=== PATIENT | female | born 1940 | race Caucasian/White ===

== ENCOUNTER 2023-12-16 09:50 | Emergency (ER) | payer MEDICARE, BC, SELFPAY ==
[2023-12-16 10:06] VITALS: BP 153/92
[2023-12-16 11:01] VITALS: BMI 20.7
[2023-12-16 11:03] VITALS: BP 150/77
--- NOTE | 2023-12-16 12:06 | ED.GENMED ---
History of Present Illness
General
Chief Complaint: Back Pain
Time Seen by Provider: 12/16/23 10:28
Travel History
Have you had any contact with someone who has COVID-19?: No
Do you have any symptoms of coronavirus? Fever > 100 degrees, chills, cough, shortness of breath, sore throat, loss of taste or smell, muscle aches, or headache?: No
History of Present Illness
History of Present Illness:
83-year-old female presents to the emergency department for evaluation of right hip pain, contrary to the nursing triage note it is not located in the back. She reports right lateral hip pain. 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
hip replacement. Pain is minimal at rest but worsens when she attempts to ambulate. She has been using a cane with some difficulty. She has a history of A-fib and does take Eliquis thus has only been taking muscle relaxants prescribed by her
primary medical doctor.
Past History
Past History
ED Past Medical History: Arrthythmia (afib), HTN and Hypothyroidism; Negative CVA
ED Past Surgical History: None
Social History
Tobacco: Former smoker
Alcohol: Occasional
Drug: None
Personal:
Living: with family
Employment: Retired
Family History
Family History: Other (nonContributory)
Review of Systems
Review of Systems
Allergies reviewed?: Yes
All Other Systems: ROS reviewed and negative except as documented in HPI and ROS
Phy Exam
Physical Exam
Physical Exam:
GEN: Well appearing, NAD, WDWN
HEENT: Oral mucosa moist, no scleral icterus
Cardiac: Regular rate
Lung: No respiratory distress, no tachypnea
MSK: No gross deformity or injuries. Focal tenderness to the right greater trochanteric bursa. Right hip range of motion is free unrestricted with no pain, no crepitus, no inguinal region tenderness.
Skin: Good color, no pallor or jaundice, no rashes
Neuro: AO x3, moves all extremities freely
Psych: Calm, cooperative
Course
Orders/Labs/Results
Orders:
Orders
12/16/23 10:39
Triamcinolone Acetonide [Kenalog-10] 10 mg INTRAARTIC NOW STA
CR Hip - RT w/wo Pel 2-3 Vw* Urgent
Comment:
Reason For Exam: R hip pain
Include a pelvis x-ray?: No
Vital Signs
Initial and Last Documented VS:
Initial Vital Signs
Temp Pulse Resp BP Pulse Ox
98.1 F 79 16 153/92 98
12/16/23 10:06 12/16/23 10:06 12/16/23 10:06 12/16/23 10:06 12/16/23 10:06
Last Documented Vital Signs
Temp Pulse Resp BP Pulse Ox
98.1 F 75 16 150/77 97
12/16/23 10:06 12/16/23 11:03 12/16/23 11:03 12/16/23 11:03 12/16/23 11:03
MDM/Problems Addressed
MDM/Problems Addressed:
Hip x-rays show well aligned hardware with no acute osseous abnormalities. Patient's clinical picture is consistent with greater trochanteric bursitis. Given that she cannot take NSAIDs and is on chronic steroids we opted for an intrabursal
steroid injection in the hopes that this would improve symptoms. 10 mg of triamcinolone was injected along with 2 cc of 1% lidocaine to the greater trochanteric bursa, patient tolerated this well. Recommend outpatient orthopedic follow-up
*Critical Care Note
Total Time (30-74mins, 75-104mins- exclusive of procedures): Not Applicable
ED Attending Note
-
Portions of this chart may have been created with voice recognition software.� Occasional wrong word or��sound alike� substitutions may have occurred due to the inherent limitations of voice recognition software.
Discharge Plan
Departure
Patient Disposition: Home (Routine Discharge)
Date of Disposition: 12/16/23
Time of Disposition: 12:20
Patient with high blood pressure during this ER visit?: No
Discharge Problem:
Greater trochanteric bursitis of right hip
Instructions: Hip Bursitis (DC)
Prescriptions:
No Action
clindamycin HCl [Cleocin HCl] 150 mg capsule
150 mg PO Q8H Qty: 10 0RF
oxycodone 5 mg capsule
5 mg PO Q6H PRN (Reason: pain) Qty: 14 0RF
ondansetron 4 mg tablet,disintegrating
4 mg PO TID PRN (Reason: nausea and vomiting) Qty: 14 0RF
acetaminophen 325 MG tablet
650 mg PO Q4HPRN PRN (Reason: mild pain) 0RF
levothyroxine 75 MCG tablet
75 mcg PO DAILY AT 0700 Qty: 30 0RF
bisacodyl [OneLAX Bisacodyl] 10 MG suppository
10 mg [place] HSPRN PRN (Reason: if no BM with oral bisacodyl) 0RF
gabapentin 300 MG capsule
300 mg PO DAILY Qty: 30 0RF
diltiazem HCl 120 MG capsule,extended release 24hr
120 mg PO DAILY Qty: 30 0RF
bisacodyl 5 MG tablet,delayed release (DR/EC)
10 mg PO DAILYPRN PRN (Reason: constipation) 0RF
furosemide 20 MG tablet
20 mg PO DAILY Qty: 30 0RF
fluticasone propionate 1 SPRAY spray,suspension
2 spray intranasal DAILY Qty: 1 0RF
oxycodone 5 MG tablet
5 mg PO Q4HPRN PRN (Reason: moderate or severe pain) Qty: 20 0RF
sodium chloride 1 GRAM tablet,soluble
1 g PO BID Qty: 60 0RF
apixaban [Eliquis] 5 MG tablet
5 mg PO BID Qty: 60 0RF
[facility] Brand Fiber
2 cap PO DAILY 0RF
sennosides [senna] 1 TABLET tablet
2 tab PO DAILY@1200 Qty: 60 0RF
multivitamin with folic acid [Tab-A-Taz] 1 TABLET tablet
1 tab PO DAILY Qty: 30 0RF
Referrals:
Lisandro Lind MD [Active] -
David Valdez MD [Family Provider] -
Interventions
Interventions:
*Risk Screen - Suicide Last Done: 12/16/23 11:02
*General Assessment Last Done: 12/16/23 11:01
*Neglect/Abuse Screening Last Done: 12/16/23 11:01
ED- Fall Risk Assessment Last Done: 12/16/23 11:02
*ED COVID-19 Vaccine History Last Done: 12/16/23 10:09
*Nursing Disposition Last Done: 12/16/23 12:30
ED-Musculoskeletal Assessment Last Done: 12/16/23 11:05
Discharge Date and Time
Discharge Date/Time: 12/16/23 12:30
== END 2023-12-16 12:30 | disposition home or self-care (01) ==
LOC: EMR 09:50
PROVIDERS: EMERGENCY PHYSICIAN Emergency Medicine; FAMILY PHYSICIAN Family Medicine
DX: M70.61 Trochanteric bursitis, right hip (principal); I48.91 Unspecified atrial fibrillation; I10 Essential (primary) hypertension; E03.9 Hypothyroidism, unspecified; Z87.891 Personal history of nicotine dependence; Z96.641 Presence of right artificial hip joint
CPT/HCPCS: 99283; 73502

== ENCOUNTER 2023-12-24 06:28 | Emergency (ER) | payer MEDICARE, BC, SELFPAY ==
[2023-12-24 06:29] VITALS: BMI 21.5
[2023-12-24 06:30] VITALS: BP 179/99
[2023-12-24 07:09] VITALS: BP 151/82
--- NOTE | 2023-12-24 07:13 | ED.GENMED ---
History of Present Illness
General
Chief Complaint: Flank Pain
Source: patient
Exam Limitations: none
Time Seen by Provider: 12/24/23 06:53
Nursing documentation reviewed up to this point in time: agreed with
Travel History
Have you had any contact with someone who has COVID-19?: No
Do you have any symptoms of coronavirus? Fever > 100 degrees, chills, cough, shortness of breath, sore throat, loss of taste or smell, muscle aches, or headache?: No
History of Present Illness
History of Present Illness:
Patient presents ED secondary to intermittent right flank pain associated with nausea sensation over the past 4 days. Denies fever or chills. Denies trauma. Denies back pain. Denies difficulty with urination. Denies urinary frequency or
urgency. Denies recent change in medications or diet. Denies recent travel. Denies recent surgery. Denies recent illness. Denies previous history of similar symptoms. Denies history of gallstones or kidney stones. Of note, patient reports
recent injection by her orthopedic surgeon secondary to right hip pain. Patient is also taking tramadol for pain relief.
Past History
Past History
ED Past Medical History: Arrthythmia (afib), HTN and Hypothyroidism; Negative CVA
ED Past Surgical History: None
Social History
Tobacco: Former smoker
Alcohol: Occasional
Drug: None
Personal:
Living: with family
Employment: Retired
Family History
Family History: Other (nonContributory)
Review of Systems
Review of Systems
Allergies reviewed?: Yes
All Other Systems: ROS reviewed and negative except as documented in HPI and ROS
Constitutional: Reports no symptoms; Denies fever
Respiratory: Reports no symptoms
Cardiac: Reports no symptoms
ABD/GI: Reports nausea and vomiting; Denies diarrhea
: Reports flank pain; Denies frequency or difficulty voiding
Musculoskeletal: Reports no symptoms; Denies back pain
Skin: Reports no symptoms
Neurological: Reports no symptoms
Phy Exam
Physical Exam
Physical Exam:
Physical Exam
General: mild painful distress, not acutely ill. afebrile
Head: nc/at. eomi
Neck: supple. no meningeal signs.
Heart: s1/s2 regular rate and rhythm, no murmur. equal radial pulses.
Lungs: no acute respiratory distress. clear bilaterally. mild right rib pain at level of rib#8-10, along midaxillary line, without ecchymosis/swelling/erythema.
Abdomen: normal bowel sounds. mild epigastric/RUQ tenderness to palpation.
Neuro: alert and oriented. no focal neurological deficits
Skin: no rash
Psychiatric: well kept. interactive and cooperative
Extremities: no edema. no calf tenderness.
Course
Orders/Labs/Results
Orders:
Orders
12/24/23 06:56
0.9% Sodium Chloride 250 ml [Nss] 250 ml IV BOLUS
HYDROmorphone [Dilaudid] 0.5 mg IV NOW STA
Ondansetron Injectable [Zofran] 4 mg IV NOW STA
12/24/23 06:57
US Abdomen Complete/Upper Urgent
Comment:
Reason For Exam: RUQ pain
12/24/23 07:21
Basic Metabolic Panel Urgent
Complete Blood Count/No Diff Urgent
Lipase Urgent
Magnesium Urgent
Urinalysis Reflex To Culture Urgent
Date Specimen was Collected: 12/24/23
Time Specimen was Collected: 07:07
12/24/23 08:53
Ketorolac [Toradol] 15 mg IV NOW STA
CR Ribs-right 3 Vw W/pa Chest* Urgent
Comment:
Reason For Exam: right rib pain at level of #8-10
12/24/23 09:00
D-Dimer Urgent
Abnormal Lab Results
12/24/23 12/24/23
07:21 09:00
RBC 4.05 L 10^6/uL
(4.20-5.40)
MCH 32.6 H pg
(27.0-31.0)
RDW 17.0 H %
(11.5-14.5)
D-Dimer 0.82 H ug/mlFEU
(0.00-0.50)
Sodium 129 L mmol/L
(135-145)
Chloride 95 L mmol/L
(98-107)
BUN 25 H mg/dl
(7-17)
12/24/23 07:21
12/24/23 07:21
Vital Signs
Initial and Last Documented VS:
Initial Vital Signs
Temp Pulse Resp BP Pulse Ox
97.4 F 84 20 179/99 100
12/24/23 06:30 12/24/23 06:30 12/24/23 06:30 12/24/23 06:30 12/24/23 06:30
Last Documented Vital Signs
Temp Pulse Resp BP Pulse Ox
97.4 F 70 14 129/78 94
12/24/23 06:30 12/24/23 10:38 12/24/23 10:38 12/24/23 10:38 12/24/23 10:38
MDM/Problems Addressed
MDM/Problems Addressed:
Patient with an unremarkable workup in the ED, including blood work and multiple imaging studies. Patient with continual mild focal right-sided rib pain, although subjectively improved with treatment. Patient otherwise remains afebrile and
hemodynamically stable. It is quite possible that her symptoms may be secondary to ongoing right hip pain, along with use of walker, which may have caused unintentional muscle strain versus possible occult rib fracture. As such, patient will be
discharged home in stable condition, to the care of her family, with recommendation to rest, application of warm compress, along with PCP follow-up as an outpatient. Advised Tylenol for pain control, along with prescription for short course of
tramadol, to be used as needed at home.
*Critical Care Note
Total Time (30-74mins, 75-104mins- exclusive of procedures): Not Applicable
ED Attending Note
-
Portions of this chart may have been created with voice recognition software.� Occasional wrong word or��sound alike� substitutions may have occurred due to the inherent limitations of voice recognition software.
Discharge Plan
Departure
Patient Disposition: Home (Routine Discharge)
Date of Disposition: 12/24/23
Time of Disposition: 10:33
Patient with high blood pressure during this ER visit?: Yes
Condition: Good
Discharge Problem:
Rib pain on right side
Instructions: Muscle and Bone Pain (DC)
Prescriptions:
New
tramadol 50 mg tablet
50 mg PO Q8H PRN (Reason: Pain) Qty: 12 0RF
No Action
clindamycin HCl [Cleocin HCl] 150 mg capsule
150 mg PO Q8H Qty: 10 0RF
oxycodone 5 mg capsule
5 mg PO Q6H PRN (Reason: pain) Qty: 14 0RF
ondansetron 4 mg tablet,disintegrating
4 mg PO TID PRN (Reason: nausea and vomiting) Qty: 14 0RF
acetaminophen 325 MG tablet
650 mg PO Q4HPRN PRN (Reason: mild pain) 0RF
levothyroxine 75 MCG tablet
75 mcg PO DAILY AT 0700 Qty: 30 0RF
bisacodyl [OneLAX Bisacodyl] 10 MG suppository
10 mg [place] HSPRN PRN (Reason: if no BM with oral bisacodyl) 0RF
gabapentin 300 MG capsule
300 mg PO DAILY Qty: 30 0RF
diltiazem HCl 120 MG capsule,extended release 24hr
120 mg PO DAILY Qty: 30 0RF
bisacodyl 5 MG tablet,delayed release (DR/EC)
10 mg PO DAILYPRN PRN (Reason: constipation) 0RF
furosemide 20 MG tablet
20 mg PO DAILY Qty: 30 0RF
fluticasone propionate 1 SPRAY spray,suspension
2 spray intranasal DAILY Qty: 1 0RF
oxycodone 5 MG tablet
5 mg PO Q4HPRN PRN (Reason: moderate or severe pain) Qty: 20 0RF
sodium chloride 1 GRAM tablet,soluble
1 g PO BID Qty: 60 0RF
apixaban [Eliquis] 5 MG tablet
5 mg PO BID Qty: 60 0RF
[facility]vs Brand Fiber
2 cap PO DAILY 0RF
sennosides [senna] 1 TABLET tablet
2 tab PO DAILY@1200 Qty: 60 0RF
multivitamin with folic acid [Tab-A-Taz] 1 TABLET tablet
1 tab PO DAILY Qty: 30 0RF
Referrals:
David Valdez MD [Family Provider] -
Activity Restrictions/Additional Instructions:
As discussed, please follow-up with your primary care physician for reevaluation. Your prescription has been sent electronically to [facility] pharmacy in [place].
Interventions
Interventions:
*Risk Screen - Suicide Last Done: 12/24/23 06:30
*General Assessment Last Done: 12/24/23 06:30
*Neglect/Abuse Screening Last Done: 12/24/23 06:30
ED- Fall Risk Assessment Last Done: 12/24/23 10:43
*ED COVID-19 Vaccine History Last Done: 12/24/23 07:55
*Nursing Disposition Last Done: 12/24/23 10:43
YF-Gldfdv-Uxchazomhc Assessment Last Done: 12/24/23 06:59
ED-Female Genitourinary Assessment Last Done: 12/24/23 06:59
Discharge Date and Time
Discharge Date/Time: 12/24/23 10:43
[2023-12-24] MEDS: ZOFRAN 4 MG IV (07:21)
[2023-12-24] MEDS: DILAUDID 0.5 MG IV (07:21)
[2023-12-24] MEDS: NSS 250 IV (07:21)
[2023-12-24 07:36] LABS: Hematocrit 37.5 % (37.0-47.0); Hemoglobin 13.2 g/dL (12.0-16.0); Mean Corp Hgb Conc. 35.2 g/dL (33.0-37.0); Mean Corpuscular Hgb 32.6 pg (27.0-31.0); Mean Corpuscular Volume 92.6 fL (81.0-99.0); Mean Platelet Volume 9.9 fL (7.4-10.4); Platelet Count 317 10^3/uL (130-400); Red Blood Cell Count 4.05 10^6/uL (4.20-5.40); White Blood Cell Count 10.3 10^3/uL (4.8-10.8)
[2023-12-24 07:37] LABS: Urine Albumin Negative (Neg - Trace); Urine Bilirubin Negative (Negative); Urine Character Clear (Clear); Urine Color Yellow; Urine Glucose Negative (Negative); Urine Ketone Negative (Negative); Urine Leukocyte Negative (Negative); Urine Nitrite Negative (Negative); Urine Occult Blood Negative (Negative); Urine Urobilinogen Negative (Neg - 1+)
[2023-12-24 07:49] LABS: Blood Urea Nitrogen 25 mg/dl (7-17); Calcium 10.1 mg/dl (8.4-10.2); Carbon Dioxide 26 mmol/L (22-30); Chloride 95 mmol/L (98-107); Estimated Creatinine Clearance 38 ml/min; Glucose 91 mg/dl (70-99); Lipase 89 U/L (23-300); Magnesium 1.9 mg/dl (1.6-2.3); Potassium 3.9 mmol/L (3.5-5.1); Sodium 129 mmol/L (135-145); eGFR > 60.00
[2023-12-24 08:00] VITALS: BP 175/101
[2023-12-24] MEDS: TORADOL 15 MG IV (09:01)
[2023-12-24 09:22] LABS: D-Dimer 0.82 ug/mlFEU (0.00-0.50)
[2023-12-24 10:38] VITALS: BP 129/78
== END 2023-12-24 10:43 | disposition home or self-care (01) ==
LOC: EMR 06:28
PROVIDERS: EMERGENCY PHYSICIAN Emergency Medicine; FAMILY PHYSICIAN Family Medicine
DX: R07.81 Pleurodynia (principal); I10 Essential (primary) hypertension; Z87.891 Personal history of nicotine dependence
CPT/HCPCS: 99285; 96374; 96375 ×2; 96361; 71101; 76700; 80048; 81003; 83690; 83735; 85027; 85379

== ENCOUNTER 2023-12-28 07:54 | Inpatient (IN) | payer MEDICARE, BC, SELFPAY ==
[2023-12-26] VITALS (10 sets, daily range): BP systolic 98–127; BP diastolic 61–77; BMI 20.2
--- NOTE | 2023-12-26 08:13 | ED.GENMED ---
History of Present Illness
General
Chief Complaint: Bowel Problem
Source: patient and ambulance crew
Exam Limitations: none
Time Seen by Provider: 12/26/23 08:12
History of Present Illness
History of Present Illness:
See MDM
Past History
Past History
ED Past Medical History: Arrthythmia (afib), HTN and Hypothyroidism; Negative CVA
ED Past Surgical History: None
Social History
Tobacco: Former smoker
Alcohol: Occasional
Drug: None
Personal:
Living: with family
Employment: Retired
Family History
Family History: Other (nonContributory)
Phy Exam
Physical Exam
Physical Exam:
See MDM
Course
Orders/Labs/Results
Orders:
Orders
12/26/23 08:34
Enema- Treatment ONCE
Type: Soap Suds
12/26/23 09:41
CT Abd/pelvis W Iv Cont Urgent
Comment:
Reason For Exam: constipated, abd pain
12/26/23 09:43
Complete Blood Count/With Diff Urgent
Comprehensive Metabolic Panel Urgent
Abnormal Lab Results
12/26/23
09:43
WBC 16.3 H 10^3/uL
(4.8-10.8)
MCH 32.6 H pg
(27.0-31.0)
RDW 17.6 H %
(11.5-14.5)
Plt Count 420 H D 10^3/uL
(130-400)
MPV 10.5 H fL
(7.4-10.4)
Abs Immat Gran (auto) 0.1 H 10^3/uL
(0-0.05)
Absolute Neuts (auto) 14.5 H 10^3/uL
(1.4-6.5)
Absolute Lymphs (auto) 0.3 L 10^3/uL
(1.2-3.4)
Absolute Monos (auto) 1.3 H 10^3/uL
(0.1-0.6)
Neutrophils % 88.7 H %
(42.2-75.2)
Lymphocytes % 2.0 L %
(20.5-51.1)
Sodium 125 L mmol/L
(135-145)
Potassium 5.4 H D mmol/L
(3.5-5.1)
Chloride 93 L mmol/L
(98-107)
BUN 51 H mg/dl
(7-17)
Glucose 148 H mg/dl
(70-99)
Total Bilirubin 3.7 H mg/dl
(0.2-1.3)
AST 49 H U/L
(14-36)
ALT 49 H U/L
(0-35)
Alkaline Phosphatase 266 H U/L
(38-126)
12/26/23 09:43
12/26/23 09:43
Vital Signs
Initial and Last Documented VS:
Initial Vital Signs
Temp Pulse Resp BP Pulse Ox
97.7 F 90 26 102/65 96
12/26/23 08:17 12/26/23 08:17 12/26/23 08:17 12/26/23 08:17 12/26/23 08:17
Last Documented Vital Signs
Temp Pulse Resp BP Pulse Ox
97.7 F 101 18 114/65 93
12/26/23 08:17 12/26/23 11:15 12/26/23 11:15 12/26/23 10:00 12/26/23 11:15
MDM/Problems Addressed
Differential Diagnosis Includes:
HPI and MDM Narrative:
83-year-old female presenting with constipation. Patient states she has not had a bowel movement in 8 days and also indicates that she had also has not taken anything to help alleviate her constipation. She states she is on tramadol. Patient was
recently evaluated the emergency department for upper abdominal pain and rib pain and had negative workup which included ultrasound and x-ray. She denies vomiting
Physical exam
General: Well appearing and non-toxic
HEENT: protecting airway
Neck: appears supple
CV: No evidence of cyanosis
Resp: No accessory muscle use
Abd: Mildly distended. No significant tenderness elicited
Extremities: No deformities
Neuro: alert
Psych: Normal affect
Skin: Intact
Problems Addressed including Acute and Chronic Conditions affecting care:
1. Constipation
Acuity: acute
Prognosis: unstable
Details: She denies vomiting. No clinical signs to suggest obstruction. Although she is mildly distended, this is likely related to constipation. Will reassess after disimpaction
1. hyponatremia
Acuity: acute
Prognosis: unstable
Details: Likely in setting of hypovolemia. Patient given IV fluids
Updates
8:30 AM rectal exam performed with nurse city plant supervisor Johana.. Large stool palpated and multiple hard stools removed. Will give enema
9:40 AM after enema, no bowel movement was obtained. Another rectal exam showed no stool in the vault. Will obtain CT at this point looking for blockage versus stercoral colitis
CT shows significant amount of constipation and questionable colitis. Will admit
Differential Diagnosis (but not limited to): Constipation, small bowel obstruction
Testing considered: CT abdomen/pelvis
Drug therapy (if applicable): OTC meds, please see d/c instruction regarding Rx drugs
Amount and/or Complexity of Data Reviewed
Clinical info obtained from: Patient
External data reviewed: N/A
Labs I independently reviewed (but not limited to): Leukocytosis
Radiology: The CT scan was personally and independently reviewed. In addition, official CT report reviewed.
Pulse Ox: not hypoxic
EKG independently reviewed: N/A
[employer]: N/A
Critical Care: N/A
Risk of Complication:
Social Determinants of health: Good social support
Discussed with other providers: Hospitalist
Escalation of Care includes Admit/Obs: Given the significant constipation with CT evidence of colitis, will admit
Occasional wrong word or 'sound a like' substitutions may have occurred due to the inherent limitations of voice recognition software. Read the chart carefully and recognize, using context, where substitutions have occurred.
*Critical Care Note
Total Time (30-74mins, 75-104mins- exclusive of procedures): Not Applicable
ED Attending Note
-
Portions of this chart may have been created with voice recognition software.� Occasional wrong word or��sound alike� substitutions may have occurred due to the inherent limitations of voice recognition software.
Discharge Plan
Departure
Patient Disposition: Admit
Date of Disposition: 12/26/23
Time of Disposition: 11:28
Admit to: Med/Surg
Presentation/result/management discussed w/ accepting MD/DO: Hospitalist
Discharge Problem:
Constipation, Colitis, Acute hyponatremia
Prescriptions:
No Action
clindamycin HCl [Cleocin HCl] 150 mg capsule
150 mg PO Q8H Qty: 10 0RF
oxycodone 5 mg capsule
5 mg PO Q6H PRN (Reason: pain) Qty: 14 0RF
ondansetron 4 mg tablet,disintegrating
4 mg PO TID PRN (Reason: nausea and vomiting) Qty: 14 0RF
tramadol 50 mg tablet
50 mg PO Q8H PRN (Reason: Pain) Qty: 12 0RF
acetaminophen 325 MG tablet
650 mg PO Q4HPRN PRN (Reason: mild pain) 0RF
levothyroxine 75 MCG tablet
75 mcg PO DAILY AT 0700 Qty: 30 0RF
bisacodyl [OneLAX Bisacodyl] 10 MG suppository
10 mg [place] HSPRN PRN (Reason: if no BM with oral bisacodyl) 0RF
gabapentin 300 MG capsule
300 mg PO DAILY Qty: 30 0RF
diltiazem HCl 120 MG capsule,extended release 24hr
120 mg PO DAILY Qty: 30 0RF
bisacodyl 5 MG tablet,delayed release (DR/EC)
10 mg PO DAILYPRN PRN (Reason: constipation) 0RF
furosemide 20 MG tablet
20 mg PO DAILY Qty: 30 0RF
fluticasone propionate 1 SPRAY spray,suspension
2 spray intranasal DAILY Qty: 1 0RF
oxycodone 5 MG tablet
5 mg PO Q4HPRN PRN (Reason: moderate or severe pain) Qty: 20 0RF
sodium chloride 1 GRAM tablet,soluble
1 g PO BID Qty: 60 0RF
apixaban [Eliquis] 5 MG tablet
5 mg PO BID Qty: 60 0RF
Cvs Brand Fiber
2 cap PO DAILY 0RF
sennosides [senna] 1 TABLET tablet
2 tab PO DAILY@1200 Qty: 60 0RF
multivitamin with folic acid [Tab-A-Taz] 1 TABLET tablet
1 tab PO DAILY Qty: 30 0RF
Referrals:
David Valdez MD [Family Provider] -
Interventions
Interventions:
*Risk Screen - Suicide Last Done: 12/26/23 08:14
*General Assessment Last Done: 12/26/23 08:14
*Neglect/Abuse Screening Last Done: 12/26/23 08:14
*ED COVID-19 Vaccine History Last Done: 12/26/23 08:14
BW-Kknefp-Qbufgturgb Assessment Last Done: 12/26/23 08:14
Discharge Date and Time
Print Language: NORWEGI[place]
[2023-12-26 09:57] LABS: % Basophils 0.7 % (0-2); % Eosinophils 0.4 % (0-6); % Immature Granulocytes 0.4 % (0-0.5); % Monocytes 7.8 % (1.7-9.3); % Neutrophils 88.7 % (42.2-75.2); Absolute Basophils 0.1 10^3/uL (0-0.2); Absolute Eosinophils 0.1 10^3/uL (0-0.7); Absolute Immature Granulocytes 0.1 10^3/uL (0-0.05); Absolute Lymphocytes 0.3 10^3/uL (1.2-3.4); Absolute Monocytes 1.3 10^3/uL (0.1-0.6); Absolute Neutrophils 14.5 10^3/uL (1.4-6.5); Hematocrit 40.9 % (37.0-47.0); Hemoglobin 14.4 g/dL (12.0-16.0); Mean Corp Hgb Conc. 35.2 g/dL (33.0-37.0); Mean Corpuscular Hgb 32.6 pg (27.0-31.0); Mean Corpuscular Volume 92.5 fL (81.0-99.0); Mean Platelet Volume 10.5 fL (7.4-10.4); Nucleated Red Blood Cells % 0 %; Platelet Count 420 10^3/uL (130-400); Red Blood Cell Count 4.42 10^6/uL (4.20-5.40); Red Cell Dist. Width 17.6 % (11.5-14.5); White Blood Cell Count 16.3 10^3/uL (4.8-10.8)
[2023-12-26 10:12] LABS: ALT (SGPT) 49 U/L (0-35); AST (SGOT) 49 U/L (14-36); Albumin 3.9 g/dl (3.5-5.0); Alkaline Phosphatase 266 U/L (38-126); Blood Urea Nitrogen 51 mg/dl (7-17); Calcium 9.4 mg/dl (8.4-10.2); Carbon Dioxide 23 mmol/L (22-30); Chloride 93 mmol/L (98-107); Glucose 148 mg/dl (70-99); Potassium 5.4 mmol/L (3.5-5.1); Sodium 125 mmol/L (135-145); Total Bilirubin 3.7 mg/dl (0.2-1.3); Total Protein 6.8 g/dl (6.3-8.2); eGFR > 60.00
[2023-12-26] MEDS: NSS 1000 IV ×2 (11:37→16:26)
--- NOTE | 2023-12-26 11:44 | HPS.HSE ---
Family Physician
-
Family Physician: David Valdez
Chief Complaint
-
Abdominal Pain
History of Present Illness
83 y/o female with past medical history of Atrial Fibrillation, Hypertension, Hyperlipidemia, Hypothyroidism, Sciatica, L5 Spinal Stenosis, Right Femoral Neck Fracture status post right hip hemiarthroplasty, Nosebleed, Diverticulitis, Elevated
Hepatic Transaminases, Trigeminal Neuralgia, Appendectomy and Cardiac Ablation presented with abdominal pain. Patient's and daughter Jaylin were present in her room at the time of patient encounter. Jaylin mentioned that patient has
recently been having right hip pain (she has had right hip surgery about 3 years ago) and saw her primary care provider and then saw Dr. Delaney (orthopedics) who infused platelets in her right hip area. She was prescribed Tramadol (which didn't
really help), but her hip pain resolved, and now she has significant abdominal pain and hasn't eaten for 2-3 days. Evaluation in the ER showed large volume constipation.
Medical History
Past Medical History
Past Medical History: Reports Other (As per HPI above)
Past Surgical History: Reports Appendectomy and Other (Cardiac Ablation)
Social History
Tobacco: Former Smoker
Alcohol: None
Drug: None
Family History
Family History: Not pertinent
Allergies / Home Medications
Allergies reflects when Allergies were last updated in [facility].
Home Medications with original date entered in [facility]
Allergy/Medication List:
Allergies
Allergy/AdvReac Type Severity Reaction Status Date / Time
amlodipine Allergy Nausea Verified 12/24/23 06:30
Cephalosporins Allergy Hives Verified 12/24/23 06:30
doxycycline Allergy Hives Verified 12/24/23 06:30
metoprolol [From Lopressor] Allergy Dizzy Verified 12/24/23 06:30
penicillin V Allergy Hives Verified 12/24/23 06:30
Penicillins Allergy Hives Verified 12/24/23 06:30
Sulfa (Sulfonamide Allergy Hives Verified 12/24/23 06:30
Antibiotics)
sulfamethoxazole Allergy Rash Verified 12/24/23 06:30
[From Bactrim]
tramadol Allergy Unknown Verified 12/26/23 12:53
trimethoprim [From Bactrim] Allergy Rash Verified 12/24/23 06:30
hydrocodone [From Vicodin] AdvReac Unknown Vomiting Verified 12/24/23 06:30
Home Medications
apixaban 5 mg tablet (Eliquis) 5 mg PO BID #60 tabs 03/24/21
diltiazem HCl 120 mg capsule,extended release 24 hr 120 mg PO DAILY #30 caps 03/24/21
gabapentin 300 mg capsule 300 mg PO DAILY #30 caps 03/24/21
multivitamin with folic acid 400 mcg tablet (Tab-A-Taz) 1 tab PO DAILY #30 tabs 03/24/21
atorvastatin 80 mg tablet (Lipitor) 80 mg PO QPM 12/26/23
levothyroxine 75 mcg tablet 75 mcg PO DAILY 12/26/23
metformin 1,000 mg tablet 1,000 mg PO BID 12/26/23
methylcellulose (laxative) 500 mg tablet (Citrucel) 500 mg PO DAILY 12/26/23
prednisone 20 mg tablet 10 mg PO DAILY 12/26/23
Review of Systems
-
A 12 point ROS was completed and negative except as noted: Yes
Physical Exam
Vital Signs
Vital Signs
Temp Pulse Resp BP Pulse Ox
97.7 F 101 18 114/65 93
12/26/23 08:17 12/26/23 11:15 12/26/23 11:15 12/26/23 10:00 12/26/23 11:15
Physical Exam
General: Pain (abdominal)
HEENT: NormoCephalic and Atraumatic; No Moist mucous membranes
Respiratory: Clear
Cardiac: S1/S2 and Irregular Rhythm
GI: Soft, Tender, Distended and Other (Hypoactive Bowel Sounds)
Musculoskeletal: No Cyanosis and No Edema
Skin: Warm and Dry
Neuro: Awake, Alert and AO x 3
Psych: Calm and Intact Judgment/Insight
Laboratory Results
-
12/26/23 09:43
12/26/23:43
Laboratory Results
Total Bilirubin 3.7 mg/dl (0.2-1.3) H 12/26/23:43
AST 49 U/L (14-36) H 12/26/23:43
ALT 49 U/L (0-35) H 12/26/23:43
Alkaline Phosphatase 266 U/L (38-126) H 12/26/23:43
Impression/Plan
-
Assessment/Plan
Constipation
-Has not had a bowel movement in 8 days and also indicates that she had also has not taken anything to help alleviate her constipation
-Patient also is on Tramadol outpatient
-ER provider disimpacted stools and provided enema -- however after enema no bowel movement resulted, therefore CT imaging was ordered
-CT showed significant amount of constipation and questionable colitis, among other findings
-Ordered basic bowel regimen
-Consulted GI, recommendations appreciated
Hyponatremia - suspected hypovolemic
-Patient has not had anything to eat or drink in the past 2-3 days
-IV fluids and monitor BMP Q6H
-PO fluid restriction per day of 40 ounces
-Nephrology has seen patient in the past, will consider re-consulting them
Hyperkalemia
-Recheck BMP and will consider Lokelma if needed
Atrial Fibrillation
History of Cardiac Ablation
-Sees [facility] inspector repairer Dr. Ku as an outpatient
-Monitor on telemetry
-Continue home Eliquis
-Continue home Diltiazem
Hypertension
-Continue home Diltiazem
Hyperlipidemia
-Continue home Atorvastatin
Hypothyroidism
-Continue home Levothyroxine
Sciatica
History of L5 Spinal Stenosis
History of Right Femoral Neck Fracture status post right hip hemiarthroplasty
-Continue home Gabapentin
History of nosebleed
History of Diverticulitis
History of Elevated Hepatic Transaminases
-Monitor CMP labwork
History of Trigeminal Neuralgia
History of Appendectomy
DVT Prophylaxis: Eliquis
Code Status: Full Code
--- NOTE | 2023-12-26 15:10 | PTCARENOTE ---
Patient arrived from ED via stretcher. Assisted onto hospital bed by medical staff.
Assessment completed and documented in shift assessment. Admission assessment completed. Patient made NPO by GI STOCK TRANSFER CLERK. Started on IV Fluids per order. Pending evaluation by Dr. Velarde. Patient with abdominal discomfort/distention likely due to severe
constipation.
--- NOTE | 2023-12-26 15:58 | CON.GI ---
Addendum entered and electronically signed by Helder Velarde MD 12/26/23 19:52:
I saw and examined the patient.
The PA's note was reviewed and I agree with the note.
Comment:
Pt is a 83 year old female with h/o afib on Eliquis, HTN, hyperlipidemia, sciatica, diverticulitis, elevated LFT's, PMR on chronic steroids, and recent onset of hip pain with hip infusion last week who p/w abdominal pain associated with distention.
Impression / Rec:
1. Abdominal pain, associated distention - pt reports not having BM for about 7-8 days. No flatus. Last oral intake was 3-4 days ago. Denies vomiting. Has leukocytosis but this may be from steroid use. CT abd showed diverticulosis and large
volume colonic stool with colitis without obstruction, free air or colonic pneumatosis. Cecum ~ 8 cm. Pt is diffusely tender on abdo exam. Had digital disimpaction and enema with minimal stool output. Had some osmotic laxative today w/o much
response. If no BM by tomorrow, will plan for endoscopic decompression. Keep NPO for now.
Original Note:
Consultation
-
Date/Time Consultation Requested: 12/26/23 1350
Date/Time Consultation Performed: 12/26/23 1600
Requesting Provider: Jarrell Christensen MD
Performing Provider: RAPHAEL Castillo, Helder Velarde MD
Reason for Consultation: rectal bleeding
Medical History
Chief Complaint / HPI
Chief Complaint: Rectal bleeding
History of Present Illness:
Pt is a 83yo presents with hx afib on Eliquis, HTN, PMR, hyperlipidemia, sciatica, L5 spinal stenosis, femoral neck fracture with hemiarthroplasty, diverticulitis, elevated LFT's, prior ablation with recent onset of hip pain with hip infusion last
week and Tramadol then noted with increased abdominal pain with distention. On admission noted with leukocytosis and CT with diverticulosis and large volume colonic stool with colitis. No obstruction, free air or colonic pneumatosis. Last
colonoscopy 2014 Dr. Pretty with diverticulosis in sigmoid and descending colon Erythema with diverticular opening.Pt also noted with elevated LFT's with bili 3.7, AST 49, ALT 49, alk phos 266. Per family hx impaction not as severe in past.
At this time patient admits to increased diffuse abdominal pain over last 8 days with constipation and some difficulty with eating but no chronic constipation issues. She also has chronic with pepcid at times, She denies dysphagia, nausea,
vomiting, or rectal bleeding.
Past Medical History
Past Medical History: Arrhythmias (afib ), HTN, Hypercholesterolemia, Hypothyroidism and Other (sciatica, L5 spinal stenosis, right femoral neck fracture, epistaxis, diverticulitis, elevated transamines, trigeminal neuralgia, PMR )
Past Surgical History: Appendectomy, Cardiac (ablation) and Orthopedic (s/p right hemiarthroplasty)
Social History
Tobacco: Smoker (years ago )
Alcohol: Former (years ago )
Drug: None
Employment: Retired
Family History
Family History: Other (no family hx colon CA or polyps)
Allergies / Home Medications
Allergy/AdvReac Type Severity Reaction Status Date / Time
amlodipine Allergy Nausea Verified 12/24/23 06:30
Cephalosporins Allergy Hives Verified 12/24/23 06:30
doxycycline Allergy Hives Verified 12/24/23 06:30
metoprolol [From Lopressor] Allergy Dizzy Verified 12/24/23 06:30
penicillin V Allergy Hives Verified 12/24/23 06:30
Penicillins Allergy Hives Verified 12/24/23 06:30
Sulfa (Sulfonamide Allergy Hives Verified 12/24/23 06:30
Antibiotics)
sulfamethoxazole Allergy Rash Verified 12/24/23 06:30
[From Bactrim]
tramadol Allergy Unknown Verified 12/26/23 12:53
trimethoprim [From Bactrim] Allergy Rash Verified 12/24/23 06:30
hydrocodone [From Vicodin] AdvReac Unknown Vomiting Verified 12/24/23 06:30
�Medication �Instructions �Recorded
apixaban 5 mg tablet (Eliquis) 5 mg PO BID #60 tabs 03/24/21
diltiazem HCl 120 mg 120 mg PO DAILY #30 caps 03/24/21
capsule,extended release 24 hr
gabapentin 300 mg capsule 300 mg PO DAILY #30 caps 03/24/21
multivitamin with folic acid 400 1 tab PO DAILY #30 tabs 03/24/21
mcg tablet (Tab-A-Taz)
atorvastatin 80 mg tablet (Lipitor) 80 mg PO QPM High Cholesterol 12/26/23
levothyroxine 75 mcg tablet 75 mcg PO DAILY AT 0700 Thyroid 12/26/23
metformin 1,000 mg tablet 1,000 mg PO BID@0800,1700 Diabetes 12/26/23
methylcellulose (laxative) 500 mg 500 mg PO DAILY Constipation 12/26/23
tablet (Citrucel)
prednisone 20 mg tablet 10 mg PO DAILY Anti-Inflammatory 12/26/23
Review of Systems
-
History Source: Patient
Constitutional: Reports No Symptoms
EENT: Reports No Symptoms
Respiratory: Reports No Symptoms
Abdomen/GI: Reports Abdominal Pain, Vomiting, Constipated (last 8 days) and Other (GERD)
: Reports No Symptoms
Musculoskeletal: Reports Other (recent hip pain)
Neurological: Reports No Symptoms
Endocrine: Reports No Symptoms
Hematologic/Lymphatic: Reports No Symptoms
Vital Signs
Temp Pulse Resp BP Pulse Ox
97.4 F 101 16 127/76 98
12/26/23 15:10 12/26/23 15:10 12/26/23 15:10 12/26/23 15:10 12/26/23 15:10
Physical Exam
Exam
General: Well Developed, Well Nourished and No Apparent Distress
HEENT: Normocephalic and Anicteric
Respiratory: Clear
Cardiac: Other (tachy )
GI: Soft, Tender (diffuse with some guarding) and Distended
Rectal: Other (rectum cleared out but large fullness noted ? stool in adjacent loop of bowel)
Genito-urinary: No Costovertebral Tender
Musculoskeletal: No Clubbing and No Cyanosis
Skin: Warm and Dry
Neuro: Awake, Alert and AO x 3
Psych: Calm
Results
WBC 16.3 10^3/uL (4.8-10.8) H 12/26/23 09:43
Hgb 14.4 g/dL (12.0-16.0) 12/26/23 09:43
Hct 40.9 % (37.0-47.0) 12/26/23 09:43
MCV 92.5 fL (81.0-99.0) 12/26/23 09:43
Plt Count 420 10^3/uL (130-400) H D 12/26/23 09:43
Absolute Neuts (auto) 14.5 10^3/uL (1.4-6.5) H 12/26/23 09:43
Sodium 125 mmol/L (135-145) L 12/26/23 09:43
Potassium 5.4 mmol/L (3.5-5.1) H D 12/26/23 09:43
Chloride 93 mmol/L (98-107) L 12/26/23 09:43
Carbon Dioxide 23 mmol/L (22-30) 12/26/23 09:43
BUN 51 mg/dl (7-17) H 12/26/23 09:43
Creatinine 0.9 mg/dL (0.6-1.0) 12/26/23 09:43
Calcium 9.4 mg/dl (8.4-10.2) 12/26/23 09:43
Total Bilirubin 3.7 mg/dl (0.2-1.3) H 12/26/23 09:43
AST 49 U/L (14-36) H 12/26/23 09:43
ALT 49 U/L (0-35) H 12/26/23 09:43
Alkaline Phosphatase 266 U/L (38-126) H 12/26/23 09:43
Diagnostic Image Results:
12/26/23 CT Abd/pelvis W Iv Cont
Sigmoid diverticulosis markedly limited as a result of beam hardening artifact and lack of oral contrast.
Marked large volume widespread colonic stool.Cysts some at least mild relative enhancement and thickening of the castillo of several segments of large bowel, CONSIDER COLITIS. No intestinal obstruction, free air or findings to suggest colonic
pneumatosis.
Moderate size hiatal hernia with small volume fluid incompletely included on this study within the distal thoracic esophagus.
Stable partial T11 vertebral compression fracture.
Prior appendectomy.
Right hip arthroplasty with prominent beam hardening artifact.
Prior GI Procedures:
Colonoscopy: 2014 Dr. Pretty with diverticulosis in sigmoid and descending colon Erythema with diverticular opening.
Assessment / Plan
-
Pt is a 83yo presents with hx afib on Eliquis, HTN, hyperlipidemia, sciatica, L5 spinal stenosis, femoral neck fracture with hemiarthroplasty, diverticulitis, elevated LFT's, prior ablation with recent onset of hip pain with hip infusion last week
and Tramadol then noted with increased abdominal pain with distention. On admission noted with leukocytosis and CT with diverticulosis and large volume colonic stool with colitis. No obstruction, free air or colonic pneumatosis. Last colonoscopy
2014 Dr. Pretty with diverticulosis in sigmoid and descending colon Erythema with diverticular opening. Pt also noted with elevated LFT's with bili 3.7, AST 49, ALT 49, alk phos 266. Per family hx impaction not as severe in past.
-abdominal pain with distention and mild guarding on exam
-CT with large colonic stool burden
-leukocytosis
-hx prior impaction
-Afib on Eliquis prior to admission
-elevated LFT's
-GERD with pepcid prior to admission
other medical problems:
-PMR
? PMR on steroids
-HTN
-hx cardiac ablation
-hyperlipidemia
-sciatica
-spinal stenosis
-femoral neck fracture with recent hip injection
-diverticulosis
PLAN:
Etiology of distention related to stool impaction vs other
s/p enema with clearing of stool in rectum but still stool higher up
for oral laxatives
will review imaging with Dr. Velarde if continued pain may need surgical eval
if any vomiting consider NGT decompression
hold eliquis for now reviewed with Dr. Christensen in case disimpaction needed
add PPI with steroid use
trend LFT's -- etiology of elevation unclear liver stable on CT add hepatitis panel
-
-
Thank you for consultation and allowing me to participate in the patient's care. Please call the water resource consultant GI physician during the after hours with any questions or concerns.
[2023-12-26 16:19] LABS: Blood Urea Nitrogen 53 mg/dl (7-17); Calcium 8.4 mg/dl (8.4-10.2); Carbon Dioxide 20 mmol/L (22-30); Chloride 94 mmol/L (98-107); Estimated Creatinine Clearance 43 ml/min; Glucose 141 mg/dl (70-99); Potassium 4.1 mmol/L (3.5-5.1); Sodium 126 mmol/L (135-145); eGFR > 60.00
[2023-12-26] MEDS: MIRALAX 17 GRAMS PO (16:47)
[2023-12-26] MEDS: NEURONTIN 300 MG PO (16:47)
[2023-12-26] MEDS: DELTASONE 10 MG PO (16:47)
[2023-12-26] MEDS: TORADOL 15 MG IV (17:50)
[2023-12-26] MEDS: COLACE 100 MG PO (20:16)
[2023-12-26] MEDS: SENOKOT 8.59999999999999964 MG PO (20:16)
--- NOTE | 2023-12-26 21:10 | W.PN.UPDATE ---
Update Note
Progress Note Update
Request from attending to verify patient allergies with family (documented and reported had discrepancy), then order antibiotics to treat colitis. Unable to reach family, attending recommended contacting ID for assistance with listed allergies.
Consult order placed and ID recommended order for Meropenem, order placed and dose according to CrCl of 43. Update given to nursing, requested they monitor for signs and symptoms of reaction with antibiotic infusion.
--- NOTE | 2023-12-26 21:16 | CON.CRS ---
Consultation
-
Date/Time Consultation Requested: 12/26/23 @17:33
Date/Time Consultation Performed: 12/26/23 @18:30
Requesting Provider: RAPHAEL Castillo
Performing Provider: John López MD
Reason for Consultation: Abdominal distention
Medical History
-
Chief Complaint: Abdominal distention
History of Present Illness:
83yo female on Eliquis for atrial fibrillation and chronic steroids for PMR, admitted via the emergency room earlier today with abdominal distention, constipation and pain for the past 8 days. She was in the ER 2 days ago with right flank pain
associated with nausea. The workup including a chest x-ray and ultrasound were unremarkable and she was discharged home with warm compresses, Tylenol and Tramadol. She has a history of chronic constipation which became worse after taking the
narcotics. She received a PRP injection into her right hip for tendinitis on 12/20/23.
She has not had a significant bowel movement in 8 days and has not taken any laxatives. She feels distended and has some lower abdominal discomfort. She feels distended with nausea and no appetite. She was disimpacted in the ER followed by an enema
with no result. Her BP is stable and her pulse is around 100. She is afebrile. Her wbc was 16.[address] scan of the abdomen and pelvis with contrast earlier today reveals a large amount of stool throughout the colon without an obstructive pattern.
There was some thickening of the bowel wall but no pneumatosis or free air.
Her last colonoscopy was in [address] Pretty which revealed left-sided diverticular disease. She was seen by the GI service earlier and the plan is for a decompression colonoscopy if no improvement with laxatives.
Past Medical History
Past Medical History: Arrhythmias (atrial fibrillation), HTN, Hypercholesterolemia and Other (sciatica, lumbar spinal stenosis, PMR, trigeminal neuralgia)
Past Surgical History: Appendectomy, Cardiac (ablation) and Orthopedic (right hip hemiarthroplasty)
Social History
Tobacco: Former Smoker
Alcohol: Former
Family History
Family History: Reviewed & Not Pertinent
Allergies / Home Medications
Allergy/AdvReac Type Severity Reaction Status Date / Time
amlodipine Allergy Nausea Verified 12/24/23 06:30
Cephalosporins Allergy Hives Verified 12/24/23 06:30
doxycycline Allergy Hives Verified 12/24/23 06:30
metoprolol [From Lopressor] Allergy Dizzy Verified 12/24/23 06:30
penicillin V Allergy Hives Verified 12/24/23 06:30
Penicillins Allergy Hives Verified 12/24/23 06:30
Sulfa (Sulfonamide Allergy Hives Verified 12/24/23 06:30
Antibiotics)
sulfamethoxazole Allergy Rash Verified 12/24/23 06:30
[From Bactrim]
tramadol Allergy Unknown Verified 12/26/23 12:53
trimethoprim [From Bactrim] Allergy Rash Verified 12/24/23 06:30
hydrocodone [From Vicodin] AdvReac Unknown Vomiting Verified 12/24/23 06:30
�Medication �Instructions �Recorded �Confirmed �Type
diltiazem HCl 120 mg 120 mg PO DAILY #30 caps 03/24/21 12/26/23 Rx
capsule,extended release 24 hr
gabapentin 300 mg capsule 300 mg PO DAILY #30 caps 03/24/21 12/26/23 Rx
multivitamin with folic acid 400 1 tab PO DAILY #30 tabs 03/24/21 12/26/23 Rx
mcg tablet (Tab-A-Taz)
apixaban 2.5 mg tablet (Eliquis) 2.5 mg PO BID 12/26/23 12/26/23 History
levothyroxine 75 mcg tablet 75 mcg PO DAILY AT 0700 Thyroid 12/26/23 12/26/23 History
methylcellulose (laxative) 500 mg 500 mg PO DAILY Constipation 12/26/23 12/26/23 History
tablet (Citrucel)
prednisone 20 mg tablet 10 mg PO Q48H Anti-Inflammatory 12/26/23 12/26/23 History
Review of Systems
-
Unable to obtain full review of systems at this time due to: Other (sedated)
History Source: Family
All other systems: Negative unless noted
A 10 point review of systems was completed, and was negative except as per HPI.
Physical Exam
Vital Signs
Temp 97.5 F 12/26/23 19:10
Pulse 113 12/26/23 19:10
Resp Rate 16 12/26/23 19:10
Blood pressure 114/70 12/26/23 19:10
SaO2 97 12/26/23 19:10
12/25/23 12/26/23 12/27/23
06:59 06:59 06:59
Actual Weight 51.619 kg
Body Mass Index (BMI) 20.2
Lab Results / Allergies
12/26/23 09:43
WBC 16.3 10^3/uL (4.8-10.8) H 12/26/23 09:43
Hgb 14.4 g/dL (12.0-16.0) 12/26/23 09:43
Hct 40.9 % (37.0-47.0) 12/26/23 09:43
Plt Count 420 10^3/uL (130-400) H D 12/26/23 09:43
Abs Immat Gran (auto) 0.1 10^3/uL (0-0.05) H 12/26/23 09:43
Neutrophils % 88.7 % (42.2-75.2) H 12/26/23 09:43
Allergy/AdvReac Type Severity Reaction Status Date / Time
amlodipine Allergy Nausea Verified 12/24/23 06:30
Cephalosporins Allergy Hives Verified 12/24/23 06:30
doxycycline Allergy Hives Verified 12/24/23 06:30
metoprolol [From Lopressor] Allergy Dizzy Verified 12/24/23 06:30
penicillin V Allergy Hives Verified 12/24/23 06:30
Penicillins Allergy Hives Verified 12/24/23 06:30
Sulfa (Sulfonamide Allergy Hives Verified 12/24/23 06:30
Antibiotics)
sulfamethoxazole Allergy Rash Verified 12/24/23 06:30
[From Bactrim]
tramadol Allergy Unknown Verified 12/26/23 12:53
trimethoprim [From Bactrim] Allergy Rash Verified 12/24/23 06:30
hydrocodone [From Vicodin] AdvReac Unknown Vomiting Verified 12/24/23 06:30
Physical Exam
General: Well Developed, Well Nourished, No Apparent Distress and Comfortable
HEENT: Anicteric
GI: Soft, Non Tender and Distended (mild, some tympany in the right upper quadrant)
Rectal: Other (very little stool)
Musculoskeletal: No Edema
Data Reviewed
-
CT Scan: Image Personally Visualized and interpreted, Report Reviewed by me, Discussed with Patient and Discussed with Family
Labs: Labs Reviewed by me, Discussed with Patient and Discussed with Family
Assessment / Plan
-
Abdominal distention most likely due to constipation. I do not appreciate an obstruction and her cecum measures approximately 8cm.
I do not feel surgery is indicated at this time and agree with the plan for laxatives. Hold Eliquis for now.
Colonoscopic decompression as per GI.
Consider a gastrograffin enema if no improvement. Discussed with Dr. Velarde.
[2023-12-26 21:48] LABS: Blood Urea Nitrogen 59 mg/dl (7-17); Carbon Dioxide 21 mmol/L (22-30); Chloride 94 mmol/L (98-107); Estimated Creatinine Clearance 31 ml/min; Glucose 136 mg/dl (70-99); Potassium 4.4 mmol/L (3.5-5.1); Sodium 125 mmol/L (135-145); eGFR 49.55
[2023-12-26] MEDS: STERILE WATER FOR INJECTION 20 ML IV (22:03)
[2023-12-26] MEDS: MERREM 1000 MG IV (22:04)
[2023-12-27] VITALS (21 sets, daily range): BP systolic 95–142; BP diastolic 49–80; BMI 20.2
[2023-12-27 03:41] LABS: Hematocrit 36.3 % (37.0-47.0); Mean Corp Hgb Conc. 35.8 g/dL (33.0-37.0); Mean Corpuscular Hgb 32.6 pg (27.0-31.0); Mean Platelet Volume 9.6 fL (7.4-10.4); Nucleated Red Blood Cells % 0 %; Platelet Count 298 10^3/uL (130-400); Red Blood Cell Count 3.99 10^6/uL (4.20-5.40); Red Cell Dist. Width 17.8 % (11.5-14.5); White Blood Cell Count 11.1 10^3/uL (4.8-10.8)
[2023-12-27 04:03] LABS: ALT (SGPT) 38 U/L (0-35); AST (SGOT) 38 U/L (14-36); Albumin 2.9 g/dl (3.5-5.0); Alkaline Phosphatase 198 U/L (38-126); Blood Urea Nitrogen 67 mg/dl (7-17); Calcium 8.1 mg/dl (8.4-10.2); Carbon Dioxide 19 mmol/L (22-30); Chloride 96 mmol/L (98-107); Estimated Creatinine Clearance 34 ml/min; Glucose 122 mg/dl (70-99); Magnesium 4.2 mg/dl (1.6-2.3); Sodium 127 mmol/L (135-145); Total Bilirubin 3.6 mg/dl (0.2-1.3); Total Protein 5.6 g/dl (6.3-8.2); eGFR 55.55
[2023-12-27] MEDS: SYNTHROID 75 MCG PO (05:08)
[2023-12-27] MEDS: NSS 1000 IV ×2 (05:08→22:52)
[2023-12-27] MEDS: MIRALAX 17 GRAMS PO (07:37)
[2023-12-27] MEDS: PROTONIX IV 40 MG IV (07:37)
[2023-12-27] MEDS: NSS (PRESERVATIVE FREE) 10 ML IV (07:37)
[2023-12-27] MEDS: NEURONTIN 300 MG PO (07:38)
[2023-12-27] MEDS: COLACE 100 MG PO (07:38)
[2023-12-27] MEDS: THERAGRAN 1 TABLET PO (07:38)
[2023-12-27] MEDS: SENOKOT 8.59999999999999964 MG PO (07:38)
[2023-12-27] MEDS: CARDIZEM CD 120 MG PO (07:42)
[2023-12-27] MEDS: NULYTELY SOLUTION 2 LITERS PO (09:06)
[2023-12-27] MEDS: STERILE WATER FOR INJECTION 20 ML IV (09:35)
[2023-12-27] MEDS: MERREM 1000 MG IV (09:35)
[2023-12-27 09:53] LABS: Absolute Neutrophils -Man Diff 9.3 10^3/uL (1.4-6.5); Band Neutrophils 40 % (0-3); Lymphocytes 1 % (20-51); Monocytes 13 % (2-9); Segmented Neutrophils 44 % (42-75)
[2023-12-27 09:54] LABS: Metamyelocytes 2 % (-)
[2023-12-27 09:55] LABS: Acanthocytes Slight; Anisocytosis Slight; Normal RBC Morphology No; Ovalocytes 1+; Platelets Checked Yes; Total Cells Counted 100
--- NOTE | 2023-12-27 10:23 | W.PN.CRS1 ---
Today's Communication / Plan
-
No surgery at this time
Decompression per GI
Assessment/Plan
-
Abdominal distention likely due to constipation
1. No surgery indicated at this time.
2. Agree with continuing to hold Eliquis.
3. Decompression as per GI.
4. Will follow.
Subjective Data
Subjective Data
Date of Service: December 27, 2023
Patient states she is not having any bowel movements. She has no nausea or vomiting. She still has diffuse abdominal pain.
Objective Data
-
Vital Signs
Temp Pulse Resp BP Pulse Ox
98.2 F 100 16 115/71 98
12/27/23 07:00 12/27/23 07:42 12/27/23 07:00 12/27/23 07:42 12/27/23 07:00
Intake & Output
12/26/23 12/27/23 12/28/23
06:59 06:59 06:59
Intake Total 900 / 900
Balance 900 / 900
Intake:
Oral fluids 0 / 0
IV fluids (Total) 900 / 900
Other:
Number of approximated MODERATE 1
amounts of urine
Lab Results
12/27/23 03:34
Physical Exam
-
General: No Acute Distress and AOx3
Abdomen: Soft, Distended and Tender (Diffuse throughout)
Skin: Warm and Dry
--- NOTE | 2023-12-27 10:30 | PTCARENOTE ---
Pt. ordered Nulytey Solution for colonoscopy prep. Pt. drank two cups and had a period of emesis. MD and GI MD notified. Told to stop bowel prep since pt. did not tolerate.
[2023-12-27] MEDS: TYLENOL 650 MG PO (10:36)
--- NOTE | 2023-12-27 15:42 | CON.ID ---
Consultation
-
Date/Time Consultation Requested: 12/26/2023 2131
Date/Time Consultation Performed: 12/27/2023 1530
Requesting Provider: Regina Arroyo
Performing Provider: Dr. Nuñez
Reason for Consultation: Leukocytosis; multiple antibiotic allergies
Chief Complaint / Past History
History of Present Illness
Diya Kohli is an 83-year-old female being evaluated at the request of Regina Arroyo in regards to antibiotic coverage in the context of multiple antibiotic allergies. History is obtained from chart review, along with patient interview.
Patient was recently seen in the ER at [facility] on 12/23 secondary to right flank pain with associated nausea over the past 4 days. She denies any fevers or chills. Workup was unremarkable in the ER, and the patient was discharged to home
on tramadol. She presents back on 12/26/2023 for constipation, noting that she did not have any bowel movement for the prior 8 days. She was subsequently evaluated by GI who felt that she may have colitis, and Infectious Diseases is asked to
comment on antibiotic selection and management in the context of multiple antibiotic allergies.
Currently she is status post colonoscopy, and may require surgery.
At present, she reports ongoing abdominal discomfort (10). She denies any headache. She denies any shortness of breath. She denies any dysuria.
Past History
Additional Past Medical History:
Atrial fibrillation
HTN
Dyslipidemia
Sciatica
Lumbar spinal stenosis
PMR
Trigeminal neuralgia
Additional Past Surgical History:
Appendectomy
Cardiac ablation
Right hip hemiarthroplasty
Allergy History:
amlodipine Allergy (Verified 12/24/23 06:30)
Nausea
Cephalosporins Allergy (Verified 12/24/23 06:30)
Hives
doxycycline Allergy (Verified 12/24/23 06:30)
Hives
metoprolol [From Lopressor] Allergy (Verified 12/24/23 06:30)
Dizzy
penicillin V Allergy (Verified 12/24/23 06:30)
Hives
Penicillins Allergy (Verified 12/24/23 06:30)
Hives
Sulfa (Sulfonamide Antibiotics) Allergy (Verified 12/24/23 06:30)
Hives
sulfamethoxazole [From Bactrim] Allergy (Verified 12/24/23 06:30)
Rash
tramadol Allergy (Verified 12/26/23 12:53)
Unknown
trimethoprim [From Bactrim] Allergy (Verified 12/24/23 06:30)
Rash
hydrocodone [From Vicodin] Adverse Reaction (Unknown, Verified 12/24/23 06:30)
Vomiting
Allergies reviewed with Clinical Pharmacist, along with patient's daughters. The penicillin allergy source is not clear, but may have been GI upset. Of note, she has tolerated Unasyn along with cephalexin in the past without issue.
Medications Reviewed: Yes
Current Antibiotics:
Meropenem 1 g IV every 12 hours
Social History
Tobacco: Former Smoker
Alcohol: Former
Drug: None
Review of Systems
Vital Signs
Temp Pulse Resp BP Pulse Ox
97.5 F 91 18 112/67 96
12/27/23 15:00 12/27/23 15:00 12/27/23 15:00 12/27/23 15:00 12/27/23 15:00
Physical Exam
Physical Exam
Constitutional: Acutely Ill, Chronically Ill and Non-toxic
Eyes: Pupils Equal, Pupils Round, No Conjunctival Hemorrhage and Sclera Anicteric
Oral: No Thrush and No Ulcers
Cardiovascular: S1/S2; Negative S3/S4
Pulmonary: Clear and Non Labored; Negative Wheezes, Rales or Rhonchi
Gastrointestinal: Soft, Tender, Distended and Decreased Bowel Sounds
Extremities: Negative Edema, Cyanosis or Erythema
Neurological: Awake and Alert
Psychological: Calm
Lab / Diagnostic Study Results
12/27/23 03:34
Abs Immat Gran (auto) 0.1 10^3/uL (0-0.05) H 12/26/23 09:43
Absolute Neuts (auto) 14.5 10^3/uL (1.4-6.5) H 12/26/23 09:43
Absolute Lymphs (auto) 0.3 10^3/uL (1.2-3.4) L 12/26/23 09:43
Absolute Monos (auto) 1.3 10^3/uL (0.1-0.6) H 12/26/23 09:43
Absolute Basos (auto) 0.1 10^3/uL (0-0.2) 12/26/23 09:43
Total Counted 100 12/27/23 03:34
Immature Gran % 0.4 % (0-0.5) 12/26/23 09:43
Neutrophils % 88.7 % (42.2-75.2) H 12/26/23 09:43
Lymphocytes % 2.0 % (20.5-51.1) L 12/26/23 09:43
Monocytes % 7.8 % (1.7-9.3) 12/26/23 09:43
Eosinophils % 0.4 % (0-6) 12/26/23 09:43
Basophils % 0.7 % (0-2) 12/26/23 09:43
Abs Neuts (Manual) 9.3 10^3/uL (1.4-6.5) H 12/27/23 03:34
Segmented Neutrophils 44 % (42-75) 12/27/23 03:34
Band Neutrophils 40 % (0-3) H 12/27/23 03:34
Lymphocytes (Manual) 1 % (20-51) L 12/27/23 03:34
Microbiology Results
Micro:
12/26/23 20:10 Blood Culture - Preliminary
Blood/Venous Enterococcus faecalis
Gram Stain - Preliminary
12/26/23 21:21 Blood Culture - Pending
Blood/Venous
Imaging:
12/26/2023 CT abdomen/pelvis: Sigmoid diverticulosis noted but study limited secondary to beam hardening artifact and lack of oral contrast. There is marked large volume of widespread colonic stool. Several areas of thickening of the wall of the
bowel with colitis being a consideration. No intestinal obstruction or free air noted. Please see full dictation for additional detail.
Assessment / Plan
Enterococcal bacteremia
Severe constipation.
Suspected ischemic bowel
Leukocytosis
Renal insufficiency
Atrial fibrillation
HTN
Dyslipidemia
Sciatica
Lumbar spinal stenosis
PMR
Trigeminal neuralgia
Recommendations:
Continue with meropenam; decrease dose to 5 mg IV every 8 hours.
Repeat blood cultures to assess any ongoing bacteremia.
Await further input from surgery. Patient may ultimately require colon resection depending on findings intraoperatively.
Follow white count temperature curve.
Care Review
Plan reviewed with: Physician (CRS)
--- NOTE | 2023-12-27 16:33 | CM ---
Reviewed chart, met with patient to obtain information for assessment. Patient was in sx when CM was in room however her daughter was there and was able to answer assessment questions and signed the JAIME letter.
Patient's daughter stated that patient lives with her spouse in a single home with 5 steps to enter. She is independent with her ADLs, personal care, bathing, dressing and ambulates without device however she does have a walker and a cane.
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 She drives and can get herself to her provider and does all her own shopping.
Patient has a prescription plan and uses [facility] for all of her medications. Her PCP is Dr. David Valdez.
Plan: Case management will continue to follow and assist with discharge planning. Will review medical indication regarding discharge after patient's sx.
[2023-12-27 17:05] LABS: Blood Urea Nitrogen 74 mg/dl (7-17); Calcium 7.8 mg/dl (8.4-10.2); Carbon Dioxide 19 mmol/L (22-30); Chloride 94 mmol/L (98-107); Estimated Creatinine Clearance 26 ml/min; Glucose 122 mg/dl (70-99); Potassium 4.6 mmol/L (3.5-5.1); Sodium 126 mmol/L (135-145); eGFR 40.55
--- NOTE | 2023-12-27 17:16 | W.PN.HOSP.TC ---
Today's Communication/Plan
-
May need bowel resection based on colonoscopy today
Nephrology to see patient tomorrow
Assessment / Plan
Assessment / Plan
Physical Exam
General: Pain (abdominal)
HEENT: Normocephalic and Atraumatic
Respiratory: Clear to Auscultation Bilaterally
Cardiac: S1/S2 and Irregular Rhythm
GI: Soft, Tender, Distended and Other (Hypoactive Bowel Sounds)
Musculoskeletal: No Cyanosis and No Edema
Skin: Warm and Dry
Neuro: Awake, Alert and AO x 3
Psych: Calm and Intact Judgment/Insight

COLONOSCOPY DECEMBER 27, 2023 PER SALESPERSON [facility] CARS'S REPORT:
Impression: - Preparation of the colon was poor.
- Hemorrhoids found on perianal exam.
- Stool in the rectum, in the recto-sigmoid colon and
in the sigmoid colon.
- Mucosal ulceration, black dusky necrotic mucosa in
the sigmoid colon concerning for necrosis/ischemia.
The colorectal surgeon was present to visualize the
mucosa and the case was discussed.
- No specimens collected.
Recommendation: - Manage as per colorectal surgery, likely bowel
resection now.

Assessment/Plan
Constipation
-Had not had a bowel movement in 8 days and also indicates that she had also had not taken anything to help alleviate her constipation
-Patient had also been on Tramadol outpatient
-ER provider disimpacted stools and provided enema -- however after enema no bowel movement resulted, therefore CT imaging was ordered
-CT showed significant amount of constipation and questionable colitis, among other findings
-Ordered basic bowel regimen
-Consulted GI, recommendations appreciated
-Per surgery, no surgical intervention needed at this time
-Status post colonoscopy on December 27, 2023 with findings of significant amounts of stool, mucosal ulceration, black dusky necrotic mucosa in the sigmoid colon concerning for necrosis/ischemia.
Hyponatremia - suspected hypovolemic
-Patient has not had anything to eat or drink in the past 2-3 days
-IV fluids and monitor BMP Q6H
-PO fluid restriction per day of 40 ounces -- but patient is currently NPO
-Consulted nephrology, recommendations appreciated
Hyperkalemia - RESOLVED
-Recheck BMP and will consider Lokelma if needed
Atrial Fibrillation
History of Cardiac Ablation
-Sees wharf tally clerk Dr. Ku as an outpatient
-Monitor on telemetry
-Hold home Eliquis due to possible surgery
-Continue home Diltiazem
Hypertension
-Continue home Diltiazem
Hyperlipidemia
-Continue home Atorvastatin
Hypothyroidism
-Continue home Levothyroxine
Sciatica
History of L5 Spinal Stenosis
History of Right Femoral Neck Fracture status post right hip hemiarthroplasty
-Continue home Gabapentin
History of nosebleed
History of Diverticulitis
History of Elevated Hepatic Transaminases
-Monitor CMP labwork
History of Trigeminal Neuralgia
History of Appendectomy
DVT Prophylaxis: Eliquis
Code Status: Full Code
Anticipated Discharge: > 48 hours
Subjective/Interval History
-
Date of Service: December 27, 2023
Patient was seen and examined. She reported her abdomen is still in pain, she said the Toradol wasn't good for her.
Objective Data
-
Labs:
Laboratory Results
12/27/23 12/27/23 12/27/23
08:54 10:59 11:15
Sodium Cancelled Cancelled Cancelled
Potassium Cancelled Cancelled Cancelled
Chloride Cancelled Cancelled Cancelled
Carbon Dioxide Cancelled Cancelled Cancelled
BUN Cancelled Cancelled Cancelled
Creatinine Cancelled Cancelled Cancelled
Glucose Cancelled Cancelled Cancelled
Calcium Cancelled Cancelled Cancelled
12/27/23
14:41
Sodium 126 L
Potassium 4.6
Chloride 94 L
Carbon Dioxide 19 L
BUN 74 H
Creatinine 1.3 H
Glucose 122 H
Calcium 7.8 L
Vital Signs:
Vital Signs
Temp Pulse Resp BP Pulse Ox
98.4 F 89 15 107/49 99
12/27/23 16:57 12/27/23 17:00 12/27/23 17:00 12/27/23 17:00 12/27/23 17:00
I&O
12/26/23 12/27/23 12/28/23
06:59 06:59 06:59
Intake Total 900 / 900
Balance 900 / 900
[2023-12-27 17:56] LABS: Osmolality Serum 297 mOsm/kg (275-300)
--- NOTE | 2023-12-27 18:43 | PTCARENOTE ---
pt. went to GI lab at 1500. PACU called at 1800 to discuss care. Pt. taken back into OR for a bowel resection. Pt. will not return to [facility]. Pt. belonging packed up and given to daughter.
--- NOTE | 2023-12-27 18:55 | W.PN.UPDATE ---
Update Note
Progress Note Update
She eliquis for sigmoidoscopy with Dr. Velarde reveals patchy necrosis of the colonic wall beginning around 30 cm. I met the patient again and she continues with severe abdominal pain. She is mildly tender on exam. She remains afebrile with
occasional tachycardia. Her white count has improved. I reviewed the current situation with the patient and her family including her and 2 daughters. I reviewed the treatment options including nonoperative management with hydration,
antibiotics and close observation. We also discussed surgery. Without surgery there is a risk of perforation. Surgery has risks that include, but are not limited to, bleeding, infection, adhesions, hernias, injury other structures, DVT,
cardiopulmonary complications, stoma complications, anastomotic leak if one is made, and even . The operation will involve an incision with inspection of the entire bowel and removal of anything of questionable viability. I explained is a
high chance of an ostomy, either an ileostomy or colostomy which is technically temporary depending on how much bowel remains. I also explained further surgery for second look might be needed depending upon the operative findings. I reviewed the
operation and typical recovery in detail. Since he is in excruciating pain, she wishes to proceed as soon as possible. Her family is at the bedside and consent was obtained. All are in agreement. Antibiotics have been ordered as well as Kcentra.
She will be given a stress dose of steroids. Probable ICU or IMU postoperatively depending upon her respiratory status.
[2023-12-27 20:46] LABS: Hepatitis B Surface Antigen Negative (Negative)
[2023-12-27 21:04] LABS: Hepatitis B Core Ab, Total Negative (Negative); Hepatitis B Surface Antibody Negative; Hepatitis C Antibody Negative (Negative)
[2023-12-27 21:19] LABS: Hepatitis A Antibody, Total Negative (Negative)
[2023-12-27 21:28] LABS: Hepatitis A IgM Antibody Negative (Negative)
[2023-12-27] MEDS: STERILE WATER FOR INJECTION 10 ML IV (22:51)
[2023-12-27] MEDS: MERREM 500 MG IV (22:51)
[2023-12-27] MEDS: DILAUDID 0.25 MG IV ×3 (23:10→23:30)
[2023-12-27 23:11] LABS: Blood Urea Nitrogen 62 mg/dl (7-17); Calcium 6.2 mg/dl (8.4-10.2); Carbon Dioxide 17 mmol/L (22-30); Chloride 98 mmol/L (98-107); Estimated Creatinine Clearance 31 ml/min; Glucose 129 mg/dl (70-99); Potassium 4.3 mmol/L (3.5-5.1); Sodium 123 mmol/L (135-145); eGFR 49.55
[2023-12-27 23:31] LABS: Hematocrit 31.3 % (37.0-47.0); Hemoglobin 11.2 g/dL (12.0-16.0); Mean Corp Hgb Conc. 35.8 g/dL (33.0-37.0); Mean Corpuscular Volume 92.3 fL (81.0-99.0); Platelet Count 359 10^3/uL (130-400); Red Blood Cell Count 3.39 10^6/uL (4.20-5.40); Red Cell Dist. Width 17.9 % (11.5-14.5); White Blood Cell Count 7.8 10^3/uL (4.8-10.8)
[2023-12-28] VITALS (44 sets, daily range): BP systolic 90–147; BP diastolic 45–98; BMI 21.6
[2023-12-28] MEDS: NSS 1000 IV ×2 (00:07→07:34)
[2023-12-28] MEDS: STERILE WATER FOR INJECTION IV (00:08)
[2023-12-28] MEDS: MERREM IV (00:08)
[2023-12-28] MEDS: COLACE PO (00:09)
[2023-12-28] MEDS: SENOKOT PO (00:09)
--- NOTE | 2023-12-28 00:51 | TRANSFER ---
Received pt from the PACU at 2345 accompanied by PACU staff. Pt moved to IMU bed and placed on monitor. She arrived arousable but drowsy as she had received Dilaudid for pain. Skin warm and dry and NG tube in place connected to 80mm suction, On
O2 at 2 liters and O2 sat was 98%. Monitor is Sinus rhythm with first degree AV block. Keith draining aure urine and sent for lab work. Midline incision is dry and intact and colostomy without drainage with pink budded ostomy. Call shah in reach.
[2023-12-28 00:52] LABS: Osmolality Urine 550 mOsm/kg (300-900)
[2023-12-28 02:18] LABS: Urine Sodium 65 mmol/L (30-90)
[2023-12-28] MEDS: MERREM 500 MG IV ×3 (06:10→22:02)
[2023-12-28] MEDS: STERILE WATER FOR INJECTION 10 ML IV ×3 (06:11→22:02)
[2023-12-28] MEDS: SOLU-CORTEF 100 MG IV (06:12)
[2023-12-28 06:41] LABS: Hematocrit 32.7 % (37.0-47.0); Hemoglobin 11.2 g/dL (12.0-16.0); Mean Corp Hgb Conc. 34.3 g/dL (33.0-37.0); Mean Corpuscular Hgb 32.7 pg (27.0-31.0); Mean Corpuscular Volume 95.3 fL (81.0-99.0); Mean Platelet Volume 10.1 fL (7.4-10.4); Platelet Count 270 10^3/uL (130-400); Red Blood Cell Count 3.43 10^6/uL (4.20-5.40)
[2023-12-28 07:18] LABS: ALT (SGPT) 38 U/L (0-35); AST (SGOT) 58 U/L (14-36); Albumin 2.5 g/dl (3.5-5.0); Alkaline Phosphatase 156 U/L (38-126); Blood Urea Nitrogen 63 mg/dl (7-17); Calcium 6.6 mg/dl (8.4-10.2); Carbon Dioxide 14 mmol/L (22-30); Chloride 102 mmol/L (98-107); Estimated Creatinine Clearance 31 ml/min; Glucose 140 mg/dl (70-99); Potassium 4.6 mmol/L (3.5-5.1); Sodium 127 mmol/L (135-145); Total Bilirubin 3.6 mg/dl (0.2-1.3); Total Protein 4.9 g/dl (6.3-8.2); eGFR 49.55
[2023-12-28] MEDS: SYNTHROID PO (07:34)
--- NOTE | 2023-12-28 08:21 | PTCARENOTE ---
At 0355 pt noted to have pulled out her Wallace NG tube. It was found in her bed, she also removed her O2. Pulse ox was stable 94% on room air. She was asleep most of the night up till then, responding when awoken, but drifting off to sleep quickly
and at times her respiratory rate was 8-10. She had no complaints of any pain unless repositioned. PIPE FITTER HELPER notified and new #16 Wallace NG tube inserted into R Nare after multiple attempts by 3 different nurses and pt was very uncomfortable with
insertion attempts but cooperative. Tube draining brown liquid. Portable CXR obtained for confirmation of placement. PIPE FITTER HELPER confirmed and then tube was irrigated and draining well. Pt requested to be restrained so she wouldn't pull it out again when
sleeping. PIPE FITTER HELPER notified and order obtained for wrist restraints and applied loosely to remind pt to not put her hands near her face. She then slept for a few hours and then wanted them removed as she said she won't pull out the tube again.
[2023-12-28 08:41] LABS: Absolute Neutrophils -Man Diff 8.2 10^3/uL (1.4-6.5); Band Neutrophils 15 % (0-3); Lymphocytes 11 % (20-51); Metamyelocytes 4 % (-); Monocytes 7 % (2-9); Myelocytes 3 % (-); Segmented Neutrophils 60 % (42-75)
[2023-12-28 08:42] LABS: Normal RBC Morphology Yes; Platelets Checked Yes; Total Cells Counted 100
[2023-12-28] MEDS: PROTONIX IV 40 MG IV (09:18)
[2023-12-28] MEDS: NSS (PRESERVATIVE FREE) 10 ML IV (09:19)
--- NOTE | 2023-12-28 09:44 | CM ---
Patient who is s/p bowel resectomy with colostomy. Room Air. NPO/NGT. Wound care nurse consult pending. Receiving IV Solucortef, IV meropenum.
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 She feels her mother is very
weak as she has been in bed since last weekend, 3 to 3-. If rehab is needed at discharge she would want [facility] for her (she has been there previously) and would not agree to SNF. If patient goes home she would want [facility]. Patient and
were both independent at home however is 87 yrs old.
Message to Dr Christensen requesting PT/OT Evals.
CM continuing to follow for d/c needs.
Plan follow up after PT/OT Evals.
[2023-12-28] MEDS: DILAUDID 0.5 MG IV ×2 (10:01→14:55)
--- NOTE | 2023-12-28 10:21 | W.CON.NEPH ---
Consultation
-
Date/Time Consultation Requested: December 28, 2023 9 AM
Date/Time Consultation Performed: December 28, 2023 10 AM
Requesting Provider: Dr. Christensen
Performing Provider: Dr. Painter
Reason for Consultation: Hyponatremia
Medical History
-
Chief Complaint: Hyponatremia
History of Present Illness:
This is an 83-year-old female with hypertension on monotherapy regimen as well as atrial fibrillation on Eliquis therapy. Patient was recently seen in the ER at [facility] on 12/23 secondary to right flank pain with associated nausea over
the past 4 days. She denies any fevers or chills. Workup was unremarkable in the ER, and the patient was discharged to home on tramadol. She presented back on 12/26/2023 for constipation, noting that she did not have any bowel movement for the
prior 8 days. She was subsequently evaluated by GI who felt that she may have colitis. Given worsening pain she was seen by colorectal surgery and taken to the operating room last night where she was found to have diffuse necrotic colon and
underwent colectomy as well as ileostomy creation. She still has some incisional pain. Urine output is low. She has new hypocalcemia as well as metabolic acidosis. Her hyponatremia has been persistent. We are asked to assist with management of
her electrolyte abnormalities.
Past Medical History
Atrial Fibrillation, Hypertension, Hyperlipidemia, Hypothyroidism, Sciatica, L5 Spinal Stenosis, Right Femoral Neck Fracture status post right hip hemiarthroplasty, Nosebleed, Diverticulitis, Elevated Hepatic Transaminases, Trigeminal Neuralgia,
Appendectomy and Cardiac Ablation, colectomy, ileostomy
Social History
Tobacco: Former Smoker
Alcohol: None
Allergies / Home Medications
Allergy/AdvReac Type Severity Reaction Status Date / Time
amlodipine Allergy Nausea Verified 12/24/23 06:30
Cephalosporins Allergy Hives Verified 12/24/23 06:30
doxycycline Allergy Hives Verified 12/24/23 06:30
hydrocodone [From Vicodin] Allergy Vomiting Verified 12/27/23 17:56
metoprolol [From Lopressor] Allergy Dizzy Verified 12/24/23 06:30
penicillin V Allergy Hives Verified 12/24/23 06:30
Penicillins Allergy Hives Verified 12/24/23 06:30
Sulfa (Sulfonamide Allergy Hives Verified 12/24/23 06:30
Antibiotics)
sulfamethoxazole Allergy Rash Verified 12/24/23 06:30
[From Bactrim]
tramadol Allergy Unknown Verified 12/26/23 12:53
trimethoprim [From Bactrim] Allergy Rash Verified 12/24/23 06:30
�Medication �Instructions �Recorded �Confirmed �Type
diltiazem HCl 120 mg 120 mg PO DAILY #30 caps 03/24/21 12/26/23 Rx
capsule,extended release 24 hr
gabapentin 300 mg capsule 300 mg PO DAILY #30 caps 03/24/21 12/26/23 Rx
multivitamin with folic acid 400 1 tab PO DAILY #30 tabs 03/24/21 12/26/23 Rx
mcg tablet (Tab-A-Taz)
apixaban 2.5 mg tablet (Eliquis) 2.5 mg PO BID Blood Clot 12/26/23 12/26/23 History
Prevention/Tx
levothyroxine 75 mcg tablet 75 mcg PO DAILY AT 0700 Thyroid 12/26/23 12/26/23 History
methylcellulose (laxative) 500 mg 500 mg PO DAILY Constipation 12/26/23 12/26/23 History
tablet (Citrucel)
prednisone 20 mg tablet 10 mg PO Q48H Anti-Inflammatory 12/26/23 12/26/23 History
Review of Systems
-
Abdominal pain. No chest pain or shortness of breath. Keith catheter in place. Thirst. Remainder of complete review of systems was negative.
Physical Exam
Vital Signs
Vital Signs
Temp Pulse Resp BP Pulse Ox
98.6 F 92 17 111/76 96
12/28/23 07:52 12/28/23 09:15 12/28/23 09:15 12/28/23 09:00 12/28/23 09:21
Lab Results
WBC 11.0 10^3/uL (4.8-10.8) H 12/28/23 06:27
RBC 3.43 10^6/uL (4.20-5.40) L 12/28/23 06:27
Hgb 11.2 g/dL (12.0-16.0) L 12/28/23 06:27
Hct 32.7 % (37.0-47.0) L 12/28/23 06:27
Plt Count 270 10^3/uL (130-400) D 12/28/23 06:27
eGFR 49.55 12/28/23 06:27
Albumin 2.5 g/dl (3.5-5.0) L 12/28/23 06:27
Physical Exam
General: AOx3
HEENT: PERRL, EOMI, Anicteric, Ear/Nose Intact, Hearing Normal, Oropharynx Clear/Moist, Neck Supple, Trachea Midline and No Thyromegaly
Respiratory: Clear
Cardiac: Regular Rate/Rhythm and No Edema
Abdomen: Soft, Nondistended and Other (No bowel sounds)
Skin: No Rash and Normal Turgor
Psych: Mood/afflect pleasant and Insight/judgement good
Assessment/Plan
-
Assessment:
Enterococcal bacteremia
Severe constipation.
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
Leukocytosis
Hypocalcemia
Metabolic acidosis
Atrial fibrillation
HTN
Dyslipidemia
Plan:
IV fluids will be changed to sodium bicarbonate based
Calcium will be replaced intravenously
Follow basic metabolic panel
Follow urine output, maintain Keith for at least another 24 hours
If she is not able to take oral intake may need to consider TPN with attention to electrolytes given duration of poor intake
Discussed with patient and family
Data Reviewed
-
Radiology: Image Personally Visualized and interpreted (A chest x-ray on December 28, 2023 by my reading shows mild cardiomegaly, atelectasis)
CT Scan: Report Reviewed by me
Labs: Labs Reviewed by me
Old Records: Reviewed
[2023-12-28] MEDS: CARDIZEM CD PO (10:33)
[2023-12-28] MEDS: NEURONTIN PO (10:34)
[2023-12-28] MEDS: SODIUM BICARBONATE 1150 MEQ IV ×2 (10:40→22:01)
--- NOTE | 2023-12-28 10:41 | W.PN.CRS1 ---
Addendum entered and electronically signed by Yariel Wheatley MD 12/28/23 12:32:
I saw and examined the patient.
The PA's note was reviewed and I agree with the note.
Comment:
Patient seen with PA earlier.
Awake and communicative. Admits to some discomfort.
Was a bit hypothermic in early a.m. but this is normalized. Borderline tachycardia. Vital signs stable otherwise. Blood work as expected. White count 11.
Abdomen nondistended. Ileostomy viable without output. Dressings intact.
Continue IMU care. Will keep Barros in for today.
Continue NG tube; await bowel function.
Holding Eliquis. Lovenox to start.
Original Note:
Today's Communication / Plan
-
continue ngt
lovenox
wound RN
Assessment/Plan
-
POD#1 subtotal colectomy with ileostomy
1. Tachy but improved now. Afebrile.
2. WBC 11.0, as expected post op. Trend.
3. Hyponatremic, repeat BMP is pending.
4. OOB with PT.
5. Continue NGT until bowel function.
6. Wound RN for ileostomy teaching.
7. OR pathology pending.
8. Continue to hold Eliquis.
9. Start Lovenox for DVT prophylaxis.
10. Pain control: on Dilaudid PRN.
11. Continue barros until AM.
Subjective Data
Subjective Data
Date of Service: December 28, 2023
Patient states she is in a lot of pain. Otherwise, she has no complaints.
Objective Data
-
Vital Signs
Temp Pulse Resp BP Pulse Ox
98.6 F 92 17 111/76 96
12/28/23 07:52 12/28/23 09:15 12/28/23 09:15 12/28/23 09:00 12/28/23 09:21
Intake & Output
12/27/23 12/28/23 12/29/23
06:59 06:59 06:59
Intake Total 900 / 900 1810 / 1810
Output Total 780 / 780
Balance 900 / 900 1030 / 1030
Intake:
Oral fluids 0 / 0 480 / 480
IV fluids (Total) 900 / 900 1250 / 1250
Normosol 500 / 500
Amount instilled into GI Tube ( 80 / 80
Total)
[place] Sump 80 / 80
Output:
Gastrointestinal tube output ( 270 / 270
Total)
[place] Sump 270 / 270
Urine, Barros 510 / 510
Other:
Number of approximated MODERATE 1
amounts of urine
How many times incontinent 2
SMALL amount urine
How many times incontinent 1
MODERATE amount urine
Lab Results
12/28/23 06:27
Physical Exam
-
General: No Acute Distress and AOx3
Abdomen: Soft, Non Distended and Tender (diffuse throughout)
Skin: Warm and Dry
Wound: Dressing in Place
[2023-12-28] MEDS: CALCIUM GLUCONATE 290 MG IV (10:42)
--- NOTE | 2023-12-28 12:00 | CM ---
Addendum entered by Laura Ortega RN 12/31/23 15:41:
correction: Patient who is s/p total colectomy with ileostomy.
Original Note:
Patient who is s/p subtotal colectomy with ileostomy. Room Air. NPO/NGT. Wound care nurse consult pending. Receiving IV Solucortef, IV meropenem, IV Dilaudid prn.
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 She feels her mother is very
weak as she has been in bed since last weekend, 3 to 3-24. If rehab is needed at discharge she would want [facility] for her (she has been there previously) and would not agree to SNF. If patient goes home she would want [employer]. Patient and
were both independent at home however is 87 yrs old.
Message to Dr Christensen requesting PT/OT Evals.
CM continuing to follow for d/c needs.
Plan follow up after PT/OT Evals.
[2023-12-28] MEDS: CARDIZEM CD 120 MG PO (12:30)
--- NOTE | 2023-12-28 13:22 | W.PN.ID1 ---
Date of Service
Date of Service: December 28, 2023
Today's Communication
Continue antibiotics.
Assessment / Plan
Enterococcal bacteremia
Severe constipation.
Ischemic bowel
- s/p colon resection
Leukocytosis
Renal insufficiency
Atrial fibrillation
HTN
Dyslipidemia
Sciatica
Lumbar spinal stenosis
PMR
Trigeminal neuralgia
Recommendations:
Continue with meropenam
Repeat blood cultures to assess for ongoing bacteremia.
Await sensitivities on current blood cultures to guide further antimicrobial selection and de-escalation.
Follow white count & temperature curve.
����������������������������������������������������������
Chief Complaint
-: Other (Ischemic bowel)
Subjective / Review of Systems
Patient seen and examined. Patient is status post colon resection and ileostomy placement
Vital Signs / Physical Exam
Vital Signs
Vital Signs
Temp Pulse Resp BP Pulse Ox
97.3 F 92 17 111/76 96
12/28/23 11:25 12/28/23 09:15 12/28/23 09:15 12/28/23 09:00 12/28/23 09:21
Physical Exam
Constitutional: No Acute Distress, Comfortable, Chronically Ill, Non-toxic and Cachetic
Eyes: Sclera Anicteric
Oropharyngeal: Other (NG tube in place)
Cardiovascular: S1/S2; Negative S3/S4
Pulmonary: Clear; Negative Wheezes or Rales
Gastrointestinal: Soft and Decreased Bowel Sounds
Skin: Negative Jaundice
Psychological: Calm
Objective Data
Lab Data
Lab Results
12/28/23 06:27
Estimated Creat Clear 31 ml/min 12/28/23 06:27
Total Bilirubin 3.6 mg/dl (0.2-1.3) H 12/28/23 06:27
AST 58 U/L (14-36) H 12/28/23 06:27
ALT 38 U/L (0-35) H 12/28/23 06:27
Alkaline Phosphatase 156 U/L (38-126) H 12/28/23 06:27
Most recent labs reviewed.
Micro Results:
12/28/23 06:30 Blood Culture - Pending
Blood/Venous
12/28/23 10:34 Blood Culture - Pending
Blood/Venous
12/26/23 20:10 Blood Culture - Preliminary
Blood/Venous Enterococcus faecalis
Gram Stain - Preliminary
12/27/23 20:06 Wound Culture - Pending
Abdomen Gram Stain - Preliminary
12/26/23 21:21 Blood Culture - Preliminary
Blood/Venous No Growth in 24 hours- Final report to follow
12/27/23 20:06 Anaerobic Culture - Pending
Abdomen
Imaging:
12/26/2023 CT abdomen/pelvis: Sigmoid diverticulosis noted but study limited secondary to beam hardening artifact and lack of oral contrast. There is marked large volume of widespread colonic stool. Several areas of thickening of the wall of the
bowel with colitis being a consideration. No intestinal obstruction or free air noted. Please see full dictation for additional detail.
--- NOTE | 2023-12-28 13:50 | PTCARENOTE ---
Patient heart rates 120-130's. Dr. Linda made aware. Order for ECG obtained. Patient in rapid afib. Awaiting orders.
--- NOTE | 2023-12-28 13:59 | W.PN.HOSP.TC ---
Today's Communication/Plan
-
Continue Meropenem, Enterococcus growing in the blood
Monitor and replace electrolytes
Cardizem Drip for A-Fib with RVR
Continue to monitor in IMU
Assessment / Plan
Assessment / Plan
Physical Exam
General: Pain (abdominal)
HEENT: Normocephalic and Atraumatic. NG tube.
Respiratory: Clear to Auscultation Bilaterally
Cardiac: S1/S2 and Irregular Rhythm
GI: Soft, Tender, Distended. Ileostomy in place.
Musculoskeletal: No Cyanosis and No Edema
Skin: Warm and Dry
Neuro: Awake, Alert and AO x 3
Psych: Calm and Intact Judgment/Insight

COLONOSCOPY DECEMBER 27, 2023 PER PLASTICS SCIENTIST'S REPORT:
Impression: - Preparation of the colon was poor.
- Hemorrhoids found on perianal exam.
- Stool in the rectum, in the recto-sigmoid colon and
in the sigmoid colon.
- Mucosal ulceration, black dusky necrotic mucosa in
the sigmoid colon concerning for necrosis/ischemia.
The colorectal surgeon was present to visualize the
mucosa and the case was discussed.
- No specimens collected.
Recommendation: - Manage as per colorectal surgery, likely bowel
resection now.

Assessment/Plan
Enterococcal Bacteremia
-Possibly from the gastrointestinal tract
-Continue Meropenem
-Appreciate ID evaluation and recommendations
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
-Had not had a bowel movement in 8 days and also indicates that she had also had not taken anything to help alleviate her constipation
-Patient had also been on Tramadol outpatient
-ER provider disimpacted stools and provided enema -- however after enema no bowel movement resulted, therefore CT imaging was ordered
-CT showed significant amount of constipation and questionable colitis, among other findings
-Consulted GI, recommendations appreciated
-Status post colonoscopy on December 27, 2023 with findings of significant amounts of stool, mucosal ulceration, black dusky necrotic mucosa in the sigmoid colon concerning for necrosis/ischemia.
-Patient therefore needed a subtotal colectomy with ileostomy on December 28, 2023
-TPN may be needed if cannot tolerate PO intake
-Continue NPO and re-evaluate daily
Atrial Fibrillation with Rapid Ventricular Response
-Continue Cardizem Drip
-Hold Eliquis as per surgery team
-Cardiology consulted, recommendations appreciated
Hyponatremia
Metabolic Acidosis
-Patient has not had anything to eat or drink in the past 2-3 days
-IV fluids and monitor BMP Q6H
-PO fluid restriction per day of 40 ounces -- but patient is currently NPO
-Consulted nephrology, recommendations appreciated: continue bicarb IV fluids
Hypocalcemia
-Nephrology consulted, recommendations appreciated
-IV calcium
Hyperkalemia - RESOLVED
-Monitor BMP
Atrial Fibrillation
History of Cardiac Ablation
History of 3 to 5-second conversion pauses.
-Sees ukrainian folk arts instructor Dr. Ku as an outpatient
-Monitor on telemetry
-Hold home Eliquis as above
-Continue home Diltiazem
Hypertension
-Continue home Diltiazem
Hyperlipidemia
-Continue home Atorvastatin
Hypothyroidism
-Continue home Levothyroxine
Sciatica
History of L5 Spinal Stenosis
History of Right Femoral Neck Fracture status post right hip hemiarthroplasty
-Continue home Gabapentin
History of nosebleed
History of Diverticulitis
History of Elevated Hepatic Transaminases
-Monitor CMP labwork
History of Trigeminal Neuralgia
History of Appendectomy
Primary contact is daughter Theresa, who is VN SW here (phone: [phone])
On December 28, 2023, I spoke to patient's daughter Theresa. All questions and concerns were answered.
DVT Prophylaxis: Lovenox
Code Status: Full Code
Total time spent today on performing chart review, seeing and examining patient, documentation and speaking with patient's family members, was 65 minutes.
Anticipated Discharge: > 48 hours
Subjective/Interval History
-
Date of Service: December 28, 2023
Patient was seen and examined. She denied any new significant symptoms or complaints when she was seen. Later in the day she developed tachycardia/A-Fib with RVR.
Objective Data
-
Labs:
Laboratory Results
12/28/23 12/28/23
06:27 16:00
WBC 11.0 H
Hgb 11.2 L
Hct 32.7 L
Plt Count 270 D
Sodium 127 L Pending
Potassium 4.6 Pending
Chloride 102 Pending
Carbon Dioxide 14 L* Pending
BUN 63 H Pending
Creatinine 1.1 H Pending
Glucose 140 H Pending
Calcium 6.6 L* Pending
Total Bilirubin 3.6 H
AST 58 H
ALT 38 H
Alkaline Phosphatase 156 H
Vital Signs:
Vital Signs
Temp Pulse Resp BP Pulse Ox
97.3 F 92 17 111/76 96
12/28/23 11:25 12/28/23 09:15 12/28/23 09:15 12/28/23 09:00 12/28/23 09:21
I&O
12/27/23 12/28/23 12/29/23
06:59 06:59 06:59
Intake Total 900 / 900 1810 / 1810 290 / 290
Output Total 780 / 780 150 / 150
Balance 900 / 900 1030 / 1030 140 / 140
[2023-12-28] MEDS: CARDIZEM 125 IV ×2 (14:07→22:09)
--- NOTE | 2023-12-28 15:05 | PTCARENOTE ---
Cardizem drip started at 5mg/5mls for heart rate of 130 in afib.
--- NOTE | 2023-12-28 15:53 | CON.CAR ---
Addendum entered and electronically signed by Ricardo Perez MD 12/28/23 17:28:
I saw and examined the patient.
The Analytical Clerk's note was reviewed and I agree with the note.
Comment:
GEN: No distress, awake, Ox3
HEENT: supple, anicteric, mmm
LUNGS: scatt rhonchi
CV: Irreg, S1/S2, 1/6 syst LSB, no gallop
ABD: soft, BS+, NT/ND
EXT: No edema
NEURO: Gross non-focal
SKIN: No rash
plan:
83-year-old female with past medical history of paroxysmal atrial fibrillation and atrial flutter status post PVI in 2019 presents to [facility] with colitis and necrotic colon. She underwent colectomy with ileostomy 12/27/22. Today
postoperatively she went into atrial fibrillation with rapid ventricular rates. She overall feels well and does not feel any palpitations, chest pains or shortness of breath. She was placed on a Cardizem drip but ventricular rates remain elevated.
She does take Eliquis but this has been held postoperatively.
Plan:
Continue IV Cardizem drip and increase rate to 15 mg/h. Her blood pressure is currently stable. Resume Eliquis when okay with surgery. Hopefully over the next 24 to 48 hours. Hemoglobin currently stable at 11.2.
Continue antibiotics and postoperative care.
Check TSH.
Will repeat echocardiogram early next week when she has recovered some from her surgery.
Original Note:
Consultation
Consultation Request
Date/Time Consultation Requested: 12/28/2023
Date/Time Consultation Performed: 12/28/2023 at 1500
Requesting Provider: Dr. Christensen
Performing Provider: Dr. Perez
Reason for Consultation: Afib w/ RVR
Medical History
-
History of Present Illness:
HPI: Diya is an 83-year-old female with past medical history of paroxysmal atrial fibrillation, typical atrial flutter status post PVI and CTI flutter ablation 08/25/2019, sick sinus syndrome, hypertension, hyperlipidemia, GERD, and
hypothyroidism. She presented to ER with nausea, abdominal pain, and constipation. She initially was felt to have colitis, however had worsening pain and was taken to the OR where she was found to have diffuse necrotic colon and underwent
colectomy with ileostomy. She has been recovering and this afternoon on 12/28/2023, she went into rapid atrial fibrillation. She has history of paroxysmal atrial fibrillation and typical atrial flutter with PVI in 2019. She has had no recurrences
of atrial fibrillation noted since her PVI. Cardiology consulted for rapid atrial fibrillation.
PMH:
Paroxysmal atrial fibrillation
Typical atrial flutter
s/p PVI, CTI flutter ablation, 08/25/19
Chronic Eliquis anticoagulation
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
HTN
HLD
GERD
Hypothyroidism
Arthritis
Past Medical History
Past Medical History: Other (In HPI)
Past Surgical History: Appendectomy, Cardiac (PVI, CTI ablation 08/25/2019) and Other (Total colectomy and end ileostomy 12/27/2023, right hip hemiarthroplasty 03/15/2021)
Social History
Tobacco: Former Smoker
Alcohol: None
Drug: None
Personal:
Living: With Family
Employment: Retired
Family History
Family History: Reviewed & Not Pertinent
Allergies / Home Medications
Allergy/AdvReac Type Severity Reaction Status Date / Time
amlodipine Allergy Nausea Verified 12/24/23 06:30
Cephalosporins Allergy Hives Verified 12/24/23 06:30
doxycycline Allergy Hives Verified 12/24/23 06:30
hydrocodone [From Vicodin] Allergy Vomiting Verified 12/27/23 17:56
metoprolol [From Lopressor] Allergy Dizzy Verified 12/24/23 06:30
penicillin V Allergy Hives Verified 12/24/23 06:30
Penicillins Allergy Hives Verified 12/24/23 06:30
Sulfa (Sulfonamide Allergy Hives Verified 12/24/23 06:30
Antibiotics)
sulfamethoxazole Allergy Rash Verified 12/24/23 06:30
[From Bactrim]
tramadol Allergy Unknown Verified 12/26/23 12:53
trimethoprim [From Bactrim] Allergy Rash Verified 12/24/23 06:30
�Medication �Instructions �Recorded �Confirmed �Type
diltiazem HCl 120 mg 120 mg PO DAILY #30 caps 03/24/21 12/26/23 Rx
capsule,extended release 24 hr
gabapentin 300 mg capsule 300 mg PO DAILY #30 caps 03/24/21 12/26/23 Rx
multivitamin with folic acid 400 1 tab PO DAILY #30 tabs 03/24/21 12/26/23 Rx
mcg tablet (Tab-A-Taz)
apixaban 2.5 mg tablet (Eliquis) 2.5 mg PO BID Blood Clot 12/26/23 12/26/23 History
Prevention/Tx
levothyroxine 75 mcg tablet 75 mcg PO DAILY AT 0700 Thyroid 12/26/23 12/26/23 History
methylcellulose (laxative) 500 mg 500 mg PO DAILY Constipation 12/26/23 12/26/23 History
tablet (Citrucel)
prednisone 20 mg tablet 10 mg PO Q48H Anti-Inflammatory 12/26/23 12/26/23 History
Review of Systems
-
History Source: Patient
All other systems: Negative unless noted
Physical Exam
Vital Signs
Temp Pulse Resp BP Pulse Ox
97.3 F 92 17 111/76 96
12/28/23 11:25 12/28/23 09:15 12/28/23 09:15 12/28/23 09:00 12/28/23 09:21
Lab Results
12/28/23 06:27
Physical Exam
General: No Apparent Distress
HEENT: Moist Mucous Membranes
Respiratory: Non Labored Respirations
Cardiac: Irregular Rhythm
Musculoskeletal: No Clubbing, No Cyanosis and No Edema
Neuro: Nonfocal/Grossly Intact
Psych: Calm
Impression / Plan
-
PCP: Dr. David Valdez
Cardiology: Dr. Ku
Impression:
Presented with abdominal pain
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
Enterococcal bacteremia
Paroxysmal atrial fibrillation w/ RVR
Typical atrial flutter
s/p PVI, CTI flutter ablation, 08/25/19
Chronic Eliquis anticoagulation
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
HTN
HLD
GERD
Hypothyroidism
Arthritis
FARIDA 08/19/2019: EF 60 to 65%, mild MR
Plan:
-Presented with abdominal pain and constipation. Found to have ischemic bowel and is status post total abdominal colectomy 12/27/2023.
-In afternoon 12/28/2023, went into rapid atrial fibrillation resulting in cardiology consult. EKG reviewed and shows rapid atrial fibrillation with heart rate 134.
-Agree with starting Cardizem drip. Has been uptitrated and is currently @ 15. Will continue rate control for now.
-Eliquis remains on hold after recent surgery. Ideally would resume as soon as safe per surgery.
-Follow on telemetry. Has history of 3 to 5-second conversion pauses.
-K stable at 4.6. Repeat labs pending.
-Check TSH
-Eventually recheck echocardiogram. Most recent echo was FARIDA in 2019 which showed preserved EF with mild MR.
-Continue postop care.
HPI: Diya is an 83-year-old female with past medical history of paroxysmal atrial fibrillation, typical atrial flutter status post PVI and CTI flutter ablation 08/25/2019, sick sinus syndrome, hypertension, hyperlipidemia, GERD, and
hypothyroidism. She presented to ER with nausea, abdominal pain, and constipation. She initially was felt to have colitis, however had worsening pain and was taken to the OR where she was found to have diffuse necrotic colon and underwent
colectomy with ileostomy. She has been recovering and this afternoon on 12/28/2023, she went into rapid atrial fibrillation. She has history of paroxysmal atrial fibrillation and typical atrial flutter with PVI in 2019. She has had no recurrences
of atrial fibrillation noted since her PVI. Cardiology consulted for rapid atrial fibrillation.
Data Reviewed
-
EKG: Tracing Personally Visualized and interpreted
Radiology: Report Reviewed by me
Labs: Labs Reviewed by me
Old Records: Reviewed
--- NOTE | 2023-12-28 16:24 | VNURNOTE ---
Home Health Liaison met with patient and spouse 12/26 to discuss [facility] nurse/therapy, visits, schedule and homebound status. Patient is agreeable and understands that visits at home will be 2-3 x per week to assess and teach medical management.
[facility] brochure provided with contact information. Patient is aware that [facility] will contact them for start of care in 1-2 days after discharge from .
[facility] referral completed in [facility].
Liaison will continue to follow patient.
--- NOTE | 2023-12-28 16:29 | PTCARENOTE ---
Medicated patient with IV dilaudid x2 for pain rating 10/10 at abdominal surgical site and lower back pain. Patient currently sleeping in bed. Family in room at bedside.. Cardizem drip infusing at 15mg/15mls/hr. heart rate 120-130. RLQ
colostomy draining small amount of serosanguineous fluid. Aquacell dressing intact. Spo2 98% on 2L o2. Will continue to monitor.
--- NOTE | 2023-12-28 16:33 | WOUNDNOTE ---
[facility] RN NOTE: Patient with new ileostomy 12/26. Spoke to RN, who stated patient currently in a-fib. Stoma pink, warm and slightly budded. Scant amount of green drainage output. No leaking noted. Spoke daughter Theresa about ostomy and dropped off
information booklet. All questions answered. [facility] called for ostomy kit. Per Theresa patient will likely go to acute SNF. Will continue to follow with patient.
[2023-12-28] MEDS: SOLU-CORTEF 50 MG IV ×2 (17:08→23:34)
[2023-12-28] MEDS: LOVENOX 40 MG SC (17:57)
[2023-12-28 21:24] LABS: Blood Urea Nitrogen 55 mg/dl (7-17); Calcium 7.6 mg/dl (8.4-10.2); Carbon Dioxide 21 mmol/L (22-30); Chloride 100 mmol/L (98-107); Estimated Creatinine Clearance 38 ml/min; Glucose 122 mg/dl (70-99); Potassium 3.9 mmol/L (3.5-5.1); Sodium 126 mmol/L (135-145); eGFR > 60.00
[2023-12-28 21:55] LABS: TSH Reflex To Free T4 4.66 uIU/ml (0.47-4.68)
--- NOTE | 2023-12-28 23:08 | PTCARENOTE ---
Pt placed on medsitter observation to help prevent pt from pulling NG tube out.
[2023-12-29] VITALS (33 sets, daily range): BP systolic 91–126; BP diastolic 48–82; PULSE 68–76; O2SAT 90–93; BMI 22.2
[2023-12-29] MEDS: MERREM 500 MG IV ×3 (05:43→21:10)
[2023-12-29] MEDS: STERILE WATER FOR INJECTION 10 ML IV ×3 (05:44→21:19)
[2023-12-29] MEDS: DILAUDID 0.25 MG IV (05:56)
[2023-12-29 06:00] LABS: ALT (SGPT) 34 U/L (0-35); AST (SGOT) 51 U/L (14-36); Albumin 2.3 g/dl (3.5-5.0); Alkaline Phosphatase 125 U/L (38-126); Blood Urea Nitrogen 51 mg/dl (7-17); Calcium 7.4 mg/dl (8.4-10.2); Carbon Dioxide 23 mmol/L (22-30); Chloride 97 mmol/L (98-107); Estimated Creatinine Clearance 43 ml/min; Glucose 109 mg/dl (70-99); Magnesium 3.2 mg/dl (1.6-2.3); Phosphorus 3.8 mg/dl (2.5-4.5); Sodium 128 mmol/L (135-145); Total Bilirubin 1.7 mg/dl (0.2-1.3); Total Protein 4.4 g/dl (6.3-8.2); eGFR > 60.00
--- NOTE | 2023-12-29 06:03 | PTCARENOTE ---
Pt back into NSR with 1st degree AV block. See strip in chart. Cardizem gtt stopped. House [employer] VICE PRESIDENT made aware.
[2023-12-29 06:20] LABS: Hematocrit 24.9 % (37.0-47.0); Hemoglobin 9.1 g/dL (12.0-16.0); Mean Corp Hgb Conc. 36.5 g/dL (33.0-37.0); Mean Corpuscular Volume 90.2 fL (81.0-99.0); Mean Platelet Volume 10.3 fL (7.4-10.4); Platelet Count 201 10^3/uL (130-400); Red Blood Cell Count 2.76 10^6/uL (4.20-5.40); Red Cell Dist. Width 17.7 % (11.5-14.5); White Blood Cell Count 12.6 10^3/uL (4.8-10.8)
--- NOTE | 2023-12-29 07:00 | PTCARENOTE ---
received report from previous RN. Pt drowsy, arouses easily to voice. oriented to self, place. disoriented to time (day, month and year) confused- hosp notified. generalized weakness throughout. NSR on telemetry heart rate 60-70s. pulses palpable.
+1 edema in lower extremities. pt on 2L nasal cannula, sat 95%. lung sounds diminished in bilateral bases. Ileostomy with small amount of sersanginous fluid. stoma intact. NG right nare to continuous suction, small amount of brown fluid. pt denies
nausea. reports incisional abdominal pain. aqaucel intact with small amount of old drainage. Keith draining aure urine. pt and family updated on plan of care. See worklist for full nursing assessment and interventions.
--- NOTE | 2023-12-29 08:02 | W.PN.ID1 ---
Date of Service
Date of Service: December 29, 2023
Today's Communication
Continue antibiotics
Assessment / Plan
Enterococcal bacteremia
Severe constipation.
Ischemic bowel
- s/p colon resection
Leukocytosis
Renal insufficiency
Multiple drug allergies.
Atrial fibrillation
HTN
Dyslipidemia
Sciatica
Lumbar spinal stenosis
PMR
Trigeminal neuralgia
Recommendations:
Continue with meropenam (d#4)
Repeat blood cultures NGTD
Await sensitivities on current blood cultures to guide further antimicrobial selection and de-escalation.
Follow white count & temperature curve.
����������������������������������������������������������
Chief Complaint
-: Other (Ischemic bowel)
Subjective / Review of Systems
Patient seen and examined. Reports pain controlled. No significant issues overnight.
Vital Signs / Physical Exam
Vital Signs
Vital Signs
Temp Pulse Resp BP Pulse Ox
97.6 F 65 15 103/57 95
12/29/23 03:55 12/29/23 07:00 12/29/23 07:00 12/29/23 06:00 12/29/23 07:00
Physical Exam
Constitutional: No Acute Distress, Comfortable, Chronically Ill, Non-toxic and Cachetic
Oropharyngeal: Other (NG tube in place.)
Cardiovascular: S1/S2; Negative S3/S4
Pulmonary: Non Labored
Gastrointestinal: Decreased Bowel Sounds
Neurological: Awake and Alert
Psychological: Calm
Objective Data
Lab Data
Lab Results
12/29/23 05:22
12/29/23 05:22
Estimated Creat Clear 43 ml/min 12/29/23 05:22
Total Bilirubin 1.7 mg/dl (0.2-1.3) H D 12/29/23 05:22
AST 51 U/L (14-36) H 12/29/23 05:22
ALT 34 U/L (0-35) 12/29/23 05:22
Alkaline Phosphatase 125 U/L (38-126) 12/29/23 05:22
Most recent labs reviewed.
Micro Results:
12/28/23 06:30 Blood Culture - Preliminary
Blood/Venous No Growth in 24 hours- Final report to follow
12/26/23 21:21 Blood Culture - Preliminary
Blood/Venous No Growth in 48 hours- Final report to follow
12/28/23 10:34 Blood Culture - Pending
Blood/Venous
12/26/23 20:10 Blood Culture - Preliminary
Blood/Venous Enterococcus faecalis
Gram Stain - Preliminary
12/27/23 20:06 Wound Culture - Pending
Abdomen Gram Stain - Preliminary
12/27/23 20:06 Anaerobic Culture - Pending
Abdomen
Imaging:
12/26/2023 CT abdomen/pelvis: Sigmoid diverticulosis noted but study limited secondary to beam hardening artifact and lack of oral contrast. There is marked large volume of widespread colonic stool. Several areas of thickening of the wall of the
bowel with colitis being a consideration. No intestinal obstruction or free air noted. Please see full dictation for additional detail.
[2023-12-29] MEDS: SOLU-CORTEF 50 MG IV ×2 (08:22→15:44)
[2023-12-29] MEDS: NSS (PRESERVATIVE FREE) 10 ML IV (08:23)
[2023-12-29] MEDS: SODIUM BICARBONATE 1150 MEQ IV (08:23)
[2023-12-29] MEDS: PROTONIX IV 40 MG IV (08:23)
[2023-12-29 09:02] LABS: Nucleated Red Blood Cells % 0 %
[2023-12-29 09:03] LABS: Absolute Neutrophils -Man Diff 10.9 10^3/uL (1.4-6.5); Band Neutrophils 16 % (0-3); Lymphocytes 7 % (20-51); Monocytes 5 % (2-9); Myelocytes 1 % (-); Platelets Checked Yes; Segmented Neutrophils 71 % (42-75); Total Cells Counted 100
[2023-12-29 09:04] LABS: Anisocytosis Slight; Normal RBC Morphology No; Ovalocytes Slight
--- NOTE | 2023-12-29 09:45 | W.PN.HOSP.TC ---
Today's Communication/Plan
-
Avoid narcotic pain medications as those cause patient confusion
Await return of bowel function -- appreciate surgery team evaluation and recommendations
Holding all blood thinners including any anticoagulation for patient's paroxysmal A-Fib or Lovenox/pharmacologic agent for DVT prophylaxis
Sequential Compression Device for DVT Prophylaxis since patient cannot get blood thinners and no DVT seen on ultrasound today
Morning lab-work recheck to monitor hemoglobin, electrolytes, renal functions
Assessment / Plan
Assessment / Plan
Physical Exam
General: Not in acute distress
HEENT: Normocephalic and Atraumatic. NG tube.
Respiratory: Equal air entry bilaterally, anteriorly.
Cardiac: S1/S2 and Regular Rhythm
GI: Soft, Nontender, Minimal to Mild Distension. Ileostomy in place.
Musculoskeletal: No Cyanosis and No Edema
Skin: Warm and Dry
Neuro: Awake, Alert and AAO x 3
Psych: Calm and Intact Judgment/Insight

COLONOSCOPY DECEMBER 27, 2023 PER TELECOMMUNICATIONS FIELD ENGINEER'S REPORT:
Impression: - Preparation of the colon was poor.
- Hemorrhoids found on perianal exam.
- Stool in the rectum, in the recto-sigmoid colon and
in the sigmoid colon.
- Mucosal ulceration, black dusky necrotic mucosa in
the sigmoid colon concerning for necrosis/ischemia.
The colorectal surgeon was present to visualize the
mucosa and the case was discussed.
- No specimens collected.
Recommendation: - Manage as per colorectal surgery, likely bowel
resection now.

Assessment/Plan
Enterococcal Bacteremia
-Possible from the gastrointestinal tract
-Continue Meropenem
-Follow cultures/microbiology studies
-Appreciate ID evaluation and recommendations
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
-On presentation, patient had not had a bowel movement in 8 days and also indicated that she had also had not taken anything to help alleviate her constipation
-Patient had also been on Tramadol outpatient
-ER provider disimpacted some stools and provided enema -- however after enema was given, no bowel movement resulted, therefore CT imaging was ordered
-CT showed significant amount of constipation and possible colitis (in the setting of bowel wall thickening), among other findings
-Consulted GI, recommendations appreciated
-Status post colonoscopy on December 27, 2023 with findings of significant amounts of stool, mucosal ulceration, black dusky necrotic mucosa in the sigmoid colon concerning for necrosis/ischemia.
-Patient therefore needed a subtotal colectomy with ileostomy on December 28, 2023
-Avoid narcotic pain medications as this can make the patient confused, as per patient's daughter
-Scheduled Ofirmev (IV Tylenol) startedfor pain control -- monitor AST and ALT while on this
-Avoid NSAIDs due to anemia and very recent surgery
-PT/OT
-TPN may be needed if cannot tolerate PO intake
-Continue NG tube with Low Intermittent Wall Suction
-Continue NPO (except for ice chips) and re-evaluate daily for return of bowel function
-Hold oral medications as they will likely not be absorbed predictably
-Continue to hold anticoagulation blood thinners as per surgery team
-Lovenox (for DVT prophylaxis) is on hold due to anemia -- as per surgery team --> in the meantime, use sequential compression devices for prophylaxis from deep vein thrombosis --> discussed this on December 29, 2023 with on-call surgery team via [place]
Text, and they are in agreement with using sequential compression devices for prophylaxis from deep vein thrombosis
-Encourage out of bed as able, physical therapy as able
Atrial Fibrillation with Rapid Ventricular Response - RESOLVED
Tele with 3-5 second conversion pauses earlier this admission.
-Appeared to be in sinus rhythm on monitor now
-Was on Cardizem Drip, now off of it
-Outpatient PO cardizem is on hold for reasons outlined above
-Hold Eliquis as per surgery team and for reasons above
-Use as needed IV Lopressor for now for HR greater than 100 bpm
-Cardiology consulted, recommendations appreciated
-Echocardiogram for Sunday December 31, 2023
Atrial Fibrillation
History of Cardiac Ablation
History of 3 to 5-second conversion pauses.
-Sees senior business broker Dr. Ku as an outpatient
-Monitor on telemetry
-Hold home Eliquis (anticoagulation) as above
-Continue home Diltiazem when able
Left Lower Leg (Calf Area) Focal Pain and Swelling
-Left lower leg with in left calf area with pain and swelling
-DVT ultrasound performed on December 29, 2023 showed no Deep Vein Thrombosis
-X-Ray: no acute findings, with unremarkable soft tissue as per radiologist's report
-If focal pain continues, then can consider orthopedics consult and MRI to rule out a possible infection or occult bony pathology
-Continue regular neurovascular checks Q4H in all extremities
Hyponatremia
Metabolic Acidosis
Hypocalcemia
-Patient had not had anything to eat or drink for the 2-3 days prior to presentation
-Normal Saline IV fluids
-IV prn Calcium
-Consulted nephrology, recommendations appreciated
Hypocalcemia
-Nephrology consulted, recommendations appreciated
-IV calcium
Hyperkalemia - RESOLVED
-Monitor BMP
Hypertension
-Continue home Diltiazem when able
Hyperlipidemia
-Continue home Atorvastatin when able
Hypothyroidism
-Continue home Levothyroxine when able
Sciatica
History of L5 Spinal Stenosis
History of Right Femoral Neck Fracture status post right hip hemiarthroplasty
-Continue home Gabapentin when able
History of nosebleed
History of Diverticulitis
History of Elevated Hepatic Transaminases
-Monitor CMP lab-work, especially in the setting of Ofirmev (IV Tylenol use)
History of Trigeminal Neuralgia
History of Appendectomy
On CT Imaging in November 2023 Admission:
1) 'Moderate size hiatal hernia with small volume fluid incompletely included on this study within the distal thoracic esophagus.'
2) 'Stable partial T11 vertebral compression fracture.'
3) 'Prior appendectomy.'
4) 'Right hip arthroplasty with prominent beam hardening artifact.'
Primary contact is daughter Theresa, who is [facility] SW here (phone: [phone])
On December 28, 2023, I spoke to patient's daughter Theresa. All questions and concerns were answered.
DVT Prophylaxis: Sequential Compression Device only since Lovenox/chemical DVT prophylaxis is on hold due to anemia
Code Status: Full Code
Anticipated Discharge: > 48 hours
Subjective/Interval History
-
Date of Service: December 29, 2023
Patient was seen and examined. She reports minimal to no pain. No nausea this morning, but overnight had vomiting as per reports. She also had some confusion with narcotic pain medications.
Objective Data
-
Labs:
Laboratory Results
12/29/23
05:22
WBC 12.6 H
Hgb 9.1 L
Hct 24.9 L
Plt Count 201 D
Sodium 128 L
Potassium 4.0
Chloride 97 L
Carbon Dioxide 23
BUN 51 H
Creatinine 0.8
Glucose 109 H
Calcium 7.4 L
Total Bilirubin 1.7 H D
AST 51 H
ALT 34
Alkaline Phosphatase 125
Vital Signs:
Vital Signs
Temp Pulse Resp BP Pulse Ox
97.5 F 65 15 103/57 95
12/29/23 07:35 12/29/23 07:00 12/29/23 07:00 12/29/23 06:00 12/29/23 07:00
I&O
12/28/23 12/29/23 12/30/23
06:59 06:59 06:59
Intake Total 1810 / 1810 2980 / 2980
Output Total 780 / 780 1250 / 1250
Balance 1030 / 1030 1730 / 1730
--- NOTE | 2023-12-29 10:13 | W.PN.NEPH.PH ---
Today's Communication / Plan
-
IVF NSS
Assessment/Plan
-
Assessment:
Enterococcal bacteremia
Severe constipation.
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
Leukocytosis
Hypocalcemia
Metabolic acidosis
Atrial fibrillation
HTN
Dyslipidemia
Plan:
IV fluids will be changed to NSS
Calcium will be replaced intravenously prn
Follow basic metabolic panel
Follow urine output, maintain Keith for at least another 24 hours into Sunday
If she is not able to take oral intake may need to consider TPN with attention to electrolytes given duration of poor intake
-
-
Date of Service: December 29, 2023
CC / HPI / ROS
-
Chief Complaint:
acidosis
History of Present Illness:
BP remains low
Na stable at 128
no po intake
acidosis better with IVF
Review of Systems:
hungry
thirsty
no CP/SOB
Labs
-
Labs:
WBC 12.6 10^3/uL (4.8-10.8) H 12/29/23 05:22
RBC 2.76 10^6/uL (4.20-5.40) L 12/29/23 05:22
Hgb 9.1 g/dL (12.0-16.0) L 12/29/23 05:22
Hct 24.9 % (37.0-47.0) L 12/29/23 05:22
Plt Count 201 10^3/uL (130-400) D 12/29/23 05:22
Sodium 128 mmol/L (135-145) L 12/29/23 05:22
Potassium 4.0 mmol/L (3.5-5.1) 12/29/23 05:22
Chloride 97 mmol/L (98-107) L 12/29/23 05:22
Carbon Dioxide 23 mmol/L (22-30) 12/29/23 05:22
BUN 51 mg/dl (7-17) H 12/29/23 05:22
Creatinine 0.8 mg/dL (0.6-1.0) 12/29/23 05:22
eGFR > 60.00 12/29/23 05:22
Glucose 109 mg/dl (70-99) H 12/29/23 05:22
Calcium 7.4 mg/dl (8.4-10.2) L 12/29/23 05:22
Phosphorus 3.8 mg/dl (2.5-4.5) 12/29/23 05:22
Albumin 2.3 g/dl (3.5-5.0) L 12/29/23 05:22
Physical Exam
-
Vital Signs:
Vital Signs
Temp Pulse Resp BP Pulse Ox
97.5 F 65 15 103/57 95
12/29/23 07:35 12/29/23 07:00 12/29/23 07:00 12/29/23 06:00 12/29/23 07:00
Cardiovascular:: Regular rate and rhythm
Respiratory:: Bilateral: Coarse
Lung Excursion:: Normal
Abdomen:: Nontender and Soft
Bowel Sounds:: None
Extremity Edema:: None: Bilateral:
Keith Catheter: Yes
[2023-12-29] MEDS: OFIRMEV 100 IV ×3 (10:36→21:10)
[2023-12-29] MEDS: NSS 1000 IV ×2 (10:47→18:08)
--- NOTE | 2023-12-29 10:53 | W.PN.CARDCBS ---
Addendum entered and electronically signed by Ricardo Perez MD 12/29/23 12:01:
I saw and examined the patient.
The Cocoa Bean Roaster Helper's note was reviewed and I agree with the note.
Comment:
GEN: No distress, awake, Ox3
HEENT: supple, anicteric, mmm
LUNGS: scatt rhonchi
CV: Reg, S1/S2, 1/6 syst LSB, no gallop
ABD: soft, BS+, incisional pains
EXT: No edema
NEURO: Gross non-focal
SKIN: No rash
plan:
Back in sinus rhythm today. Hopefully we can resume her oral diltiazem soon. Will use IV Lopressor for now. Off Cardizem drip.
Restart Eliquis once okay with surgery. Hemoglobin is 9.1.
Weight at 125. May need a dose of Lasix tomorrow
Original Note:
Today's Communication / Plan
-
Back in SR
Start Lopressor IV PRN
Check ECG
Check echo on Sunday
Impression / Plan
-
PCP: Dr. David Valdez
Cardiology: Dr. Ku
Impression:
Presented with abdominal pain
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
Enterococcal bacteremia
Paroxysmal atrial fibrillation w/ RVR
spontaneously converted to SR 12/29/23
Typical atrial flutter
s/p PVI, CTI flutter ablation, 08/25/19
Chronic Eliquis anticoagulation
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
HTN
HLD
GERD
Hypothyroidism
Arthritis
FARIDA 08/19/2019: EF 60 to 65%, mild MR
Plan:
-Patient with Afib in RVR on admission in the setting of ischemic bowel and then colectomy. HRs better controlled with Cardizem gtt and then gtt stopped on 12/29/23 AM with spontaneous conversion to SR. Check ECG
-Will start Lopressor 5 mg IV q 4 hours PRN HR greater than 100.
-Outpatient dose of Cardizem CD 120 mg daily is on hold while NPO.
-Outpatient dose of Eliquis 2.5 mg BID is also on hold while NPO.
-Tele with 3-5 second conversion pauses earlier this admission.
-TSH normal at 4.66
-Check echo on Sunday
HPI: Diya is an 83-year-old female with past medical history of paroxysmal atrial fibrillation, typical atrial flutter status post PVI and CTI flutter ablation 08/25/2019, sick sinus syndrome, hypertension, hyperlipidemia, GERD, and
hypothyroidism. She presented to ER with nausea, abdominal pain, and constipation. She initially was felt to have colitis, however had worsening pain and was taken to the OR where she was found to have diffuse necrotic colon and underwent
colectomy with ileostomy. She has been recovering and this afternoon on 12/28/2023, she went into rapid atrial fibrillation. She has history of paroxysmal atrial fibrillation and typical atrial flutter with PVI in 2019. She has had no recurrences
of atrial fibrillation noted since her PVI. Cardiology consulted for rapid atrial fibrillation.
Progress Note - Straight Edger
Subjective
Date of Service: December 29, 2023
No chest pain or palpitations
Objective
Labs:
12/29/23 05:22
12/29/23 05:22
Labs
Hgb 9.1 g/dL (12.0-16.0) L 12/29/23 05:22
Hct 24.9 % (37.0-47.0) L 12/29/23 05:22
Plt Count 201 10^3/uL (130-400) D 12/29/23 05:22
Sodium 128 mmol/L (135-145) L 12/29/23 05:22
Potassium 4.0 mmol/L (3.5-5.1) 12/29/23 05:22
BUN 51 mg/dl (7-17) H 12/29/23 05:22
Creatinine 0.8 mg/dL (0.6-1.0) 12/29/23 05:22
Glucose 109 mg/dl (70-99) H 12/29/23 05:22
Vital Signs and I&O:
Vital Signs
Temp Pulse Resp BP Pulse Ox
97.5 F 65 15 103/57 95
12/29/23 07:35 12/29/23 07:00 12/29/23 07:00 12/29/23 06:00 12/29/23 07:00
Vital Signs
Temp Pulse Resp BP Pulse Ox
97.5 F 65 15 103/57 95
12/29/23 07:35 12/29/23 07:00 12/29/23 07:00 12/29/23 06:00 12/29/23 07:00
Intake & Output
12/27/23 12/28/23 12/29/23 12/30/23
06:59 06:59 06:59 06:59
Intake Total 900 / 900 1810 / 1810 2980 / 2980
Output Total 780 / 780 1250 / 1250
Balance 900 / 900 1030 / 1030 1730 / 1730
Physical Exam
Physical Exam
GEN: NAD, AAOx3
HEENT: MMM
LUNGS: No audibel wheeze
CV: Reg
ABD: soft
EXT: No edema B/L
NEURO: Gross non-focal
SKIN: No rash
--- NOTE | 2023-12-29 13:41 | W.PN.CRS1 ---
Addendum entered and electronically signed by Darnell Gonzalez MD 12/29/23 14:35:
I saw and examined the patient.
The Digital Strategist's note was reviewed and I agree with the note.
Comment: Overnight vomiting, backed down to NPO. Confusion noted, possibly narcotic related or possibly ICU delirium. Ofirmev added. This morning denies nausea. No gas or stool per stoma, scant bowel sweat, exam otherwise approp. Would allow sips
and chips for today
Addendum entered and electronically signed by RAPHAEL Harmon 12/29/23 13:58:
In addition to below: Continue NGT to LIWS, bilious outputs noted
Original Note:
Today's Communication / Plan
-
Increase activity/oob
NPO with ice chips for comfort
Hold AC
Assessment/Plan
-
83 yo female with h/o afib on Eliquis, HTN, hyperlipidemia, sciatica, diverticulitis, elevated LFT's, PMR on chronic steroids presenting with no BM for around 8 days and abdominal pain. CT with large volume colonic stool with colitis without
obstruction, free air or colonic pneumatosis. Decompressive colonoscopy was preformed by GI with evidence of ischemic bowel noted, taken to the OR for management.
POD #2 Exploratory laparotomy with total abdominal colectomy and end ileostomy.
AFVSS
Nephrology following for metabolic acidosis/electrolyte abnormalities
Cardiology following; has been on Cardizem gtt for afib with conversion to sr this am
ID following for ABX management; Enterococcal bacteremia on initial blood cultures. repeats with NGTD
Acute anemia noted, likely component of hemodilution as well as expected intraoperative losses. No evidence of acute bleeding.
Awaiting return of bowel function
Plan:
Some confusion after narcotics, held this am and IV Ofirmev ordered. Hold on NSAIDs given metabolic acidosis
NPO except for ice chips while awaiting return of bowel function, would hold PO meds as they will likely not be absorbed predictably
Stoma nurse consulted
Keith to remain in place until renal function improving
Hold oral AC and SQ lovenox until h/h stabilized
Increase activity, OOB as able. PT consulted.
Subjective Data
Procedure
12/27/23 Exploratory laparotomy with total abdominal colectomy and end ileostomy.
Subjective Data
Date of Service: December 29, 2023
Patient seen and examined at bedside with Dr. Gonzalez. Denies n/v. No flatus. Some confusion with narcotics, currently denies discomfort. Notes she is thirsty.
Objective Data
-
Vital Signs
Temp Pulse Resp BP Pulse Ox
96.4 F L 64 17 94/82 96
12/29/23 11:33 12/29/23 11:30 12/29/23 11:30 12/29/23 11:00 12/29/23 11:30
Intake & Output
12/28/23 12/29/23 12/30/23
06:59 06:59 06:59
Intake Total 1810 / 1810 2980 / 2980
Output Total 780 / 780 1250 / 1250
Balance 1030 / 1030 1730 / 1730
Intake:
Oral fluids 480 / 480
IV fluids (Total) 1250 / 1250 2400 / 2400
Normosol 500 / 500
IV piggybacks 390 / 390
Amount instilled into GI Tube ( 80 / 80 190 / 190
Total)
[place] Sump 80 / 80 190 / 190
Output:
Gastrointestinal tube output ( 270 / 270 450 / 450
Total)
[place] Sump 270 / 270 450 / 450
Urine, Keith 510 / 510 800 / 800
Other:
How many times incontinent 2
SMALL amount urine
How many times incontinent 1
MODERATE amount urine
Lab Results
12/29/23 05:22
12/29/23 05:22
Physical Exam
-
General: No Acute Distress
HEENT: Grossly Normal
Abdomen: Soft, Distended (minimal) and No Bowel Movement (stoma pink/viable with minimal bowel sweat in appliance)
Skin: Warm
Wound: Dressing in Place
[2023-12-30] VITALS (23 sets, daily range): BP systolic 96–156; BP diastolic 70–103; BMI 22.9
[2023-12-30] MEDS: SOLU-CORTEF 50 MG IV ×3 (00:29→20:41)
[2023-12-30] MEDS: NSS 1000 IV (02:30)
[2023-12-30 04:05] LABS: Hematocrit 26.8 % (37.0-47.0); Hemoglobin 9.3 g/dL (12.0-16.0); Mean Corp Hgb Conc. 34.7 g/dL (33.0-37.0); Mean Corpuscular Hgb 33.3 pg (27.0-31.0); Mean Corpuscular Volume 96.1 fL (81.0-99.0); Mean Platelet Volume 10.1 fL (7.4-10.4); Nucleated Red Blood Cells % 0.1 %; Platelet Count 271 10^3/uL (130-400); Red Blood Cell Count 2.79 10^6/uL (4.20-5.40); Red Cell Dist. Width 17.4 % (11.5-14.5); White Blood Cell Count 16.8 10^3/uL (4.8-10.8)
[2023-12-30 04:29] LABS: ALT (SGPT) 34 U/L (0-35); AST (SGOT) 43 U/L (14-36); Albumin 2.4 g/dl (3.5-5.0); Alkaline Phosphatase 142 U/L (38-126); Blood Urea Nitrogen 35 mg/dl (7-17); Calcium 7.6 mg/dl (8.4-10.2); Carbon Dioxide 25 mmol/L (22-30); Chloride 98 mmol/L (98-107); Estimated Creatinine Clearance 58 ml/min; Glucose 84 mg/dl (70-99); Magnesium 2.7 mg/dl (1.6-2.3); Phosphorus 2.6 mg/dl (2.5-4.5); Sodium 133 mmol/L (135-145); Total Bilirubin 1.7 mg/dl (0.2-1.3); Total Protein 4.6 g/dl (6.3-8.2); eGFR > 60.00
[2023-12-30 04:34] LABS: Potassium 3.2 mmol/L (3.5-5.1)
[2023-12-30] MEDS: OFIRMEV 100 IV ×4 (04:36→21:59)
[2023-12-30 05:45] LABS: Absolute Neutrophils -Man Diff 14.9 10^3/uL (1.4-6.5); Band Neutrophils 13 % (0-3); Lymphocytes 1 % (20-51); Metamyelocytes 4 % (-); Monocytes 6 % (2-9); Normal RBC Morphology Yes; Platelets Checked Yes; Segmented Neutrophils 76 % (42-75); Total Cells Counted 100
[2023-12-30] MEDS: MERREM 500 MG IV ×3 (05:50→21:58)
[2023-12-30] MEDS: STERILE WATER FOR INJECTION 10 ML IV ×3 (05:50→21:59)
[2023-12-30] MEDS: KCL 270 MEQ IV ×2 (07:26→11:34)
--- NOTE | 2023-12-30 07:31 | PTCARENOTE ---
[facility] with periods of confusion overnight [facility]. AM k 3.2. call out clerk provider made aware and ordered repletion.
[2023-12-30] MEDS: PROTONIX IV 40 MG IV (07:58)
[2023-12-30] MEDS: NSS (PRESERVATIVE FREE) 10 ML IV (07:58)
--- NOTE | 2023-12-30 08:50 | W.PN.ID1 ---
Date of Service
Date of Service: December 30, 2023
Today's Communication
Continue antibiotics
Assessment / Plan
Enterococcal bacteremia
Severe constipation.
Ischemic bowel
- s/p colon resection
Leukocytosis
- Current elevation may be secondary to stress dose steroids
Renal insufficiency
Multiple drug allergies.
Atrial fibrillation
HTN
Dyslipidemia
Sciatica
Lumbar spinal stenosis
PMR
Trigeminal neuralgia
Recommendations:
Continue with meropenam (d#5)
Repeat blood cultures NGTD. Intraoperative cultures without growth.
Follow white count & temperature curve.
����������������������������������������������������������
Chief Complaint
-: Other (Ischemic bowel)
Subjective / Review of Systems
Patient seen and examined. Reports ongoing pain.
Review of Systems: No Fever and No Chills
Vital Signs / Physical Exam
Vital Signs
Vital Signs
Temp Pulse Resp BP Pulse Ox
97.9 F 89 15 154/95 96
12/30/23 03:07 12/30/23 06:30 12/30/23 06:30 12/30/23 06:00 12/30/23 06:30
Physical Exam
Constitutional: No Acute Distress, Comfortable, Chronically Ill and Cachetic
Eyes: No Conjunctival Hemorrhage and Sclera Anicteric
Cardiovascular: S1/S2; Negative S3/S4
Pulmonary: Non Labored; Negative Rales or Rhonchi
Gastrointestinal: Soft, Tender, Non Distended, Decreased Bowel Sounds, No Rebound and No Guarding
Neurological: Awake and Alert
Psychological: Calm
Objective Data
Lab Data
Lab Results
12/30/23 03:33
12/30/23 03:33
Estimated Creat Clear 58 ml/min 12/30/23 03:33
Total Bilirubin 1.7 mg/dl (0.2-1.3) H 12/30/23 03:33
AST 43 U/L (14-36) H 12/30/23 03:33
ALT 34 U/L (0-35) 12/30/23 03:33
Alkaline Phosphatase 142 U/L (38-126) H 12/30/23 03:33
Most recent labs reviewed.
Micro Results:
12/28/23 06:30 Blood Culture - Preliminary
Blood/Venous No Growth in 48 hours- Final report to follow
12/26/23 21:21 Blood Culture - Preliminary
Blood/Venous No Growth in 72 hours- Final report to follow
12/27/23 20:06 Wound Culture - Preliminary
Abdomen No growth
Gram Stain - Preliminary
12/27/23 20:06 Anaerobic Culture - Preliminary
Abdomen Culture pending. Anaerobic cultures are examined after 3
days incubation. Additional information to follow.
12/26/23 20:10 Blood Culture - Final
Blood/Venous Enterococcus faecalis
Gram Stain - Final
12/28/23 10:34 Blood Culture - Preliminary
Blood/Venous No Growth in 24 hours- Final report to follow
Imaging:
12/26/2023 CT abdomen/pelvis: Sigmoid diverticulosis noted but study limited secondary to beam hardening artifact and lack of oral contrast. There is marked large volume of widespread colonic stool. Several areas of thickening of the wall of the
bowel with colitis being a consideration. No intestinal obstruction or free air noted. Please see full dictation for additional detail.
--- NOTE | 2023-12-30 09:44 | W.PN.CARDCBS ---
Today's Communication / Plan
-
Lasix 20 mg IV x 1
Remains in sinus rhythm
Hopefully resume p.o. Cardizem and Eliquis soon
Lopressor IV as needed
Check echo in a.m.
Impression / Plan
-
PCP: Dr. David Valdez
Cardiology: Dr. Ku
Impression:
Presented with abdominal pain
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
Enterococcal bacteremia
Paroxysmal atrial fibrillation w/ RVR
spontaneously converted to SR 12/29/23
Typical atrial flutter
s/p PVI, CTI flutter ablation, 08/25/19
Chronic Eliquis anticoagulation
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
HTN
HLD
GERD
Hypothyroidism
Arthritis
FARIDA 08/19/2019: EF 60 to 65%, mild MR
Plan:
-Patient with Afib in RVR on admission in the setting of ischemic bowel and then colectomy. HRs better controlled with Cardizem gtt and then gtt stopped on 12/29/23 AM with spontaneous conversion to SR.
-start Lopressor 5 mg IV q 4 hours PRN HR greater than 100.
-Outpatient dose of Cardizem CD 120 mg daily is on hold while NPO.
-Outpatient dose of Eliquis 2.5 mg BID is also on hold while NPO.
-Weight is up 8 pounds. Will give Lasix 20 mg IV x 1. Replete potassium
-Tele with 3-5 second conversion pauses earlier this admission.
-TSH normal at 4.66
-Check echo on Sunday
-Discussed with family
HPI: Diya is an 83-year-old female with past medical history of paroxysmal atrial fibrillation, typical atrial flutter status post PVI and CTI flutter ablation 08/25/2019, sick sinus syndrome, hypertension, hyperlipidemia, GERD, and
hypothyroidism. She presented to ER with nausea, abdominal pain, and constipation. She initially was felt to have colitis, however had worsening pain and was taken to the OR where she was found to have diffuse necrotic colon and underwent
colectomy with ileostomy. She has been recovering and this afternoon on 12/28/2023, she went into rapid atrial fibrillation. She has history of paroxysmal atrial fibrillation and typical atrial flutter with PVI in 2019. She has had no recurrences
of atrial fibrillation noted since her PVI. Cardiology consulted for rapid atrial fibrillation.
Progress Note - Interlocker
Subjective
Date of Service: December 30, 2023
Abdominal pains are improving. Remains in sinus rhythm. No palpitations
Objective
Labs:
12/30/23 03:33
12/30/23 03:33
Labs
Hgb 9.3 g/dL (12.0-16.0) L 12/30/23 03:33
Hct 26.8 % (37.0-47.0) L 12/30/23 03:33
Plt Count 271 10^3/uL (130-400) D 12/30/23 03:33
Sodium 133 mmol/L (135-145) L 12/30/23 03:33
Potassium 3.2 mmol/L (3.5-5.1) L 12/30/23 03:33
BUN 35 mg/dl (7-17) H 12/30/23 03:33
Creatinine 0.6 mg/dL (0.6-1.0) 12/30/23 03:33
Glucose 84 mg/dl (70-99) 12/30/23 03:33
Vital Signs and I&O:
Vital Signs
Temp Pulse Resp BP Pulse Ox
97.9 F 89 15 154/95 96
12/30/23 07:30 12/30/23 06:30 12/30/23 06:30 12/30/23 06:00 12/30/23 06:30
Vital Signs
Temp Pulse Resp BP Pulse Ox
97.9 F 89 15 154/95 96
12/30/23 07:30 12/30/23 06:30 12/30/23 06:30 12/30/23 06:00 12/30/23 06:30
Intake & Output
12/28/23 12/29/23 12/30/23 12/31/23
06:59 06:59 06:59 06:59
Intake Total 1810 / 1810 2980 / 2980 1690 / 1690
Output Total 780 / 780 1250 / 1250 450 / 450 450 / 450
Balance 1030 / 1030 1730 / 1730 1240 / 1240 -450 / -450
Physical Exam
Physical Exam
GEN: No distress, awake, Ox3
HEENT: supple, anicteric, mmm, ng
LUNGS: dec bs at bases
CV: Reg, S1/S2, 1/6 syst LSB, no gallop
ABD: soft, BS+, incisional tenderness
EXT: +1 edema
NEURO: Gross non-focal
SKIN: No rash
--- NOTE | 2023-12-30 09:47 | W.PN.NEPH.PH ---
Today's Communication / Plan
-
K
Assessment/Plan
-
Assessment:
Enterococcal bacteremia
Severe constipation.
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
Leukocytosis
Hypocalcemia
Metabolic acidosis
Atrial fibrillation
HTN
Dyslipidemia
Plan:
IV fluids will be capped
Calcium will be replaced intravenously prn
KCL today, at least 80meq
lasix today for edema
Follow basic metabolic panel
can dc barros if desired
follow po intake, can consider TPN tomorrow if needed
wean steroids
-
-
Date of Service: December 30, 2023
CC / HPI / ROS
-
Chief Complaint:
acidosis
History of Present Illness:
BP improved
Na stable at 133
K low 3.2
no po intake
Review of Systems:
c/o hand edema
no CP/SOB
Labs
-
Labs:
WBC 16.8 10^3/uL (4.8-10.8) H 12/30/23 03:33
RBC 2.79 10^6/uL (4.20-5.40) L 12/30/23 03:33
Hgb 9.3 g/dL (12.0-16.0) L 12/30/23 03:33
Hct 26.8 % (37.0-47.0) L 12/30/23 03:33
Plt Count 271 10^3/uL (130-400) D 12/30/23 03:33
Sodium 133 mmol/L (135-145) L 12/30/23 03:33
Potassium 3.2 mmol/L (3.5-5.1) L 12/30/23 03:33
Chloride 98 mmol/L (98-107) 03/31/24 03:33
Carbon Dioxide 25 mmol/L (22-30) 12/30/23 03:33
BUN 35 mg/dl (7-17) H 12/30/23 03:33
Creatinine 0.6 mg/dL (0.6-1.0) 12/30/23 03:33
eGFR > 60.00 12/30/23 03:33
Glucose 84 mg/dl (70-99) 12/30/23 03:33
Calcium 7.6 mg/dl (8.4-10.2) L 12/30/23 03:33
Phosphorus 2.6 mg/dl (2.5-4.5) 12/30/23 03:33
Albumin 2.4 g/dl (3.5-5.0) L 12/30/23 03:33
Physical Exam
-
Vital Signs:
Vital Signs
Temp Pulse Resp BP Pulse Ox
97.9 F 89 15 154/95 96
12/30/23 07:30 12/30/23 06:30 12/30/23 06:30 12/30/23 06:00 12/30/23 06:30
[2023-12-30] MEDS: LASIX 20 MG IV (10:21)
--- NOTE | 2023-12-30 11:24 | W.PN.CRS1 ---
Addendum entered and electronically signed by Darnell Gonzalez MD 12/30/23 13:35:
I saw and examined the patient.
The [employer]'s note was reviewed and I agree with the note.
Comment: No significant change. Pain controlled. Denies n/v. MInimal NGT output. No stoma output yet. Exam approp, incision cdi, approp ttp, stoma PPV with scant bowel sweat. Cont NPO/NGT/IVF. May need TPN tomorrow if no improvement.
Original Note:
Today's Communication / Plan
-
NPO/NGT
Ofirmiv IV
Assessment/Plan
-
83 yo female with h/o afib on Eliquis, HTN, hyperlipidemia, sciatica, diverticulitis, elevated LFT's, PMR on chronic steroids presenting with no BM for around 8 days and abdominal pain. CT with large volume colonic stool with colitis without
obstruction, free air or colonic pneumatosis. Decompressive colonoscopy was preformed by GI with evidence of ischemic bowel noted, taken to the OR for management.
POD #3 Exploratory laparotomy with total abdominal colectomy and end ileostomy.
AFVSS
Nephrology following for metabolic acidosis/electrolyte abnormalities
Cardiology following; converted to SR on IV cardizem: await bowel recovery to resume cardiac meds
ID following for ABX management; Enterococcal bacteremia on initial blood cultures. repeats with NGTD. WBC trending up today.
Leg pain with no DVT on duplex 12/28
Hemoglobin stable today
Awaiting return of bowel function
Intermittent confusion, off narcotics
Plan:
Continue IV Ofirmev ordered. Hold on NSAIDs given metabolic acidosis
NPO except for ice chips/sips while awaiting return of bowel function, would hold PO meds as they will likely not be absorbed predictably
Stoma nurse consulted
Continue barros
Hold oral AC, resume SQ lovenox. Continue SCD's.
Increase activity, OOB as able. PT consulted.
May require TPN, will consult nutrition. check nutritional labs in am
Subjective Data
Procedure
12/27/23 Exploratory laparotomy with total abdominal colectomy and end ileostomy.
Subjective Data
Date of Service: December 30, 2023
Patient seen and examined at bedside with Dr. Gonzalez. Family present, questions addressed. Patient denies n/v. Some confusion overnight. Abdominal pain is minimal.
Objective Data
-
Vital Signs
Temp Pulse Resp BP Pulse Ox
97.9 F 89 15 155/90 96
12/30/23 07:30 12/30/23 10:21 12/30/23 06:30 12/30/23 10:21 12/30/23 06:30
Intake & Output
12/29/23 12/30/23 12/31/23
06:59 06:59 06:59
Intake Total 2980 / 2980 1690 / 1690
Output Total 1250 / 1250 450 / 450 450 / 450
Balance 1730 / 1730 1240 / 1240 -450 / -450
Intake:
IV fluids (Total) 2400 / 2400 1400 / 1400
IV piggybacks 390 / 390 200 / 200
Amount instilled into GI Tube ( 190 / 190 90 / 90
Total)
[place] Sump 190 / 190 90 / 90
Output:
Gastrointestinal tube output ( 450 / 450 150 / 150
Total)
[place] Sump 450 / 450 150 / 150
Urine, Barros 800 / 800 300 / 300 450 / 450
Lab Results
12/30/23 03:33
12/30/23 03:33
Physical Exam
-
General: No Acute Distress
HEENT: Grossly Normal
Abdomen: Soft, Distended (minimal), No Bowel Movement (stoma pink/viable with minimal bowel sweat in appliance) and Other (NGT with minimal bilious outputs)
Skin: Warm
Wound: Dressing in Place (aquacel)
[2023-12-30] MEDS: LOPRESSOR 5 MG IV (13:59)
[2023-12-30] MEDS: CARDIZEM 125 IV (15:18)
--- NOTE | 2023-12-30 15:59 | PTCARENOTE ---
Patient AAOx2-3, periods of forgetfulness. Was up in chair for ~3 hours today. Weaned to RA, sats 93%. Pain currently controlled with IV tylenol. Ileostomy with small brown liquid in bag. Dressing CDI. Patient with hand and LE +1 pitting edema,
lasix given, IV fluids DCd. Keith draining light yellow urine. R NGT to continuous suction with dark green output. HR converted to afib in the 150s, see mar. Bueno gtt started and titrating per protocol. BP stable. Hospitalist and cardiology
aware. Potassium repleted. Remains NPO with sips/chips. Daughters and updated at bedside. Patient making needs known. Bed and chair alarm on, medsitter still on. Closely monitoring patient.
--- NOTE | 2023-12-30 16:47 | W.PN.HOSP.TC ---
Today's Communication/Plan
-
Continue to monitor NG tube output and stoma output, reportedly some stool in stoma today
Continue to monitor electrolytes and complete blood count
Lovenox for DVT prophylaxis resumed -- okay with surgery
Will still need to hold anticoagulation (which would be for A-Fib) as per surgery
Continue antibiotics
Restarted Cardizem drip for A-Fib with RVR
Continue to monitor closely in IMU
Assessment / Plan
Assessment / Plan
Physical Exam
General: Not in acute distress
HEENT: Normocephalic and Atraumatic. NG tube.
Respiratory: Equal air entry bilaterally, anteriorly.
Cardiac: S1/S2 and Regular Rhythm
GI: Soft, Nontender, Minimal to Mild Distension. Ileostomy in place.
Musculoskeletal: No Cyanosis and No Edema
Skin: Warm and Dry
Neuro: Awake, Alert and AAO x 3
Psych: Calm and Intact Judgment/Insight

COLONOSCOPY DECEMBER 27, 2023 PER SUPERVISOR [employer]AN[employer]'S REPORT:
Impression: - Preparation of the colon was poor.
- Hemorrhoids found on perianal exam.
- Stool in the rectum, in the recto-sigmoid colon and
in the sigmoid colon.
- Mucosal ulceration, black dusky necrotic mucosa in
the sigmoid colon concerning for necrosis/ischemia.
The colorectal surgeon was present to visualize the
mucosa and the case was discussed.
- No specimens collected.
Recommendation: - Manage as per colorectal surgery, likely bowel
resection now.

Assessment/Plan
Enterococcal Bacteremia
-Possible from the gastrointestinal tract
-Continue Meropenem
-Continue to follow cultures/microbiology studies
-Appreciate ID evaluation and recommendations
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
-On presentation, patient had not had a bowel movement in 8 days and also indicated that she had also had not taken anything to help alleviate her constipation
-Patient had also been on Tramadol outpatient
-ER provider disimpacted some stools and provided enema -- however after enema was given, no bowel movement resulted, therefore CT imaging was ordered
-CT showed significant amount of constipation and possible colitis (in the setting of bowel wall thickening), among other findings
-Consulted GI, recommendations appreciated
-Status post colonoscopy on December 27, 2023 with findings of significant amounts of stool, mucosal ulceration, black dusky necrotic mucosa in the sigmoid colon concerning for necrosis/ischemia.
-Patient therefore needed a subtotal colectomy with ileostomy on December 28, 2023
-Avoid narcotic pain medications as this can make the patient confused, as per patient's daughter
-Scheduled Ofirmev (IV Tylenol) started for pain control -- monitor AST and ALT while on this
-Avoid NSAIDs due to anemia and very recent surgery
-PT/OT
-TPN may be needed if cannot tolerate PO intake
-Continue NG tube with Low Intermittent Wall Suction (or as otherwise instructed by surgery team)
-Continue NPO (except for ice chips) and re-evaluate daily for return of bowel function
-Hold oral medications as they will likely not be absorbed predictably
-Continue to hold anticoagulation blood thinners as per surgery team
-Lovenox (for DVT prophylaxis) was on hold (due to anemia) but now okay to resume as per surgery team
-Encourage out of bed as able, physical therapy as able
Atrial Fibrillation with Rapid Ventricular Response
Tele with 3-5 second conversion pauses earlier this admission.
Weight Increased
-Appeared to be in sinus rhythm after AFib RVR but then went back to SR then back to AFib RVR
-Was on Cardizem Drip-->then off-->then back on Cardizem Drip
-Outpatient PO cardizem is on hold for reasons outlined above
-Hold Eliquis as per surgery team and for reasons above
-Can use as needed IV Lopressor for now for HR greater than 100 bpm (when Cardizem drip is off)
-Cardiology consulted, recommendations appreciated
-Lasix on December 30, 2023 for weight gain, continue to monitor for prn Lasix on a daily basis
-Echocardiogram for Sunday December 31, 2023
Atrial Fibrillation
History of Cardiac Ablation
History of 3 to 5-second conversion pauses.
-Sees beekeeper Dr. Ku as an outpatient
-Monitor on telemetry
-Hold home Eliquis (anticoagulation) as above
-Continue home Diltiazem when able
Left Lower Leg (Calf Area) Focal Pain and Swelling
-Left lower leg with in left calf area with pain and swelling
-DVT ultrasound performed on December 29, 2023 showed no Deep Vein Thrombosis
-X-Ray: no acute findings, with unremarkable soft tissue as per radiologist's report
-If focal pain continues, then can consider orthopedics consult and MRI to rule out a possible infection or occult bony pathology
-Continue regular neurovascular checks Q4H in all extremities
Hyponatremia
Metabolic Acidosis
Hypocalcemia
-Patient had not had anything to eat or drink for the 2-3 days prior to presentation
-Capping IV fluids
-IV prn Calcium
-Consulted nephrology, recommendations appreciated
Hypocalcemia
-Nephrology consulted, recommendations appreciated
-IV calcium
Hyperkalemia - RESOLVED
-Monitor BMP
Hypokalemia
-Monitor BMP daily
-Replacements have been ordered
Hypertension
-Continue home Diltiazem when able
Hyperlipidemia
-Continue home Atorvastatin when able
Hypothyroidism
-Continue home Levothyroxine when able
Sciatica
History of L5 Spinal Stenosis
History of Right Femoral Neck Fracture status post right hip hemiarthroplasty
-Continue home Gabapentin when able
History of nosebleed
History of Diverticulitis
History of Elevated Hepatic Transaminases
-Monitor CMP lab-work, especially in the setting of Ofirmev (IV Tylenol use)
History of Trigeminal Neuralgia
History of Appendectomy
On CT Imaging in November 2023 Admission:
1) 'Moderate size hiatal hernia with small volume fluid incompletely included on this study within the distal thoracic esophagus.'
2) 'Stable partial T11 vertebral compression fracture.'
3) 'Prior appendectomy.'
4) 'Right hip arthroplasty with prominent beam hardening artifact.'
Primary contact is daughter Theresa, who is [facility] SW here (phone: [phone])
On December 28, 2023, I spoke to patient's daughter Theresa. All questions and concerns were answered.
DVT Prophylaxis: Lovenox Resumed starting December 30, 2023. Also Sequential Compression Devices.
Code Status: Full Code
Anticipated Discharge: > 48 hours
Subjective/Interval History
-
Date of Service: December 30, 2023
Patient was seen and examined. She reported that her left leg pain has resolved but has been at times confused. She reports some ongoing abdominal pain.
Objective Data
-
Vital Signs:
Vital Signs
Temp Pulse Resp BP Pulse Ox
98.6 F 131 18 114/88 90
12/30/23 15:36 12/30/23 16:30 12/30/23 16:30 12/30/23 16:11 12/30/23 16:30
I&O
12/29/23 12/30/23 12/31/23
06:59 06:59 06:59
Intake Total 2980 / 2980 1690 / 1690
Output Total 1250 / 1250 450 / 450 450 / 450
Balance 1730 / 1730 1240 / 1240 -450 / -450
[2023-12-30] MEDS: LOVENOX 40 MG SC (17:34)
[2023-12-31] VITALS (15 sets, daily range): BP systolic 97–128; BP diastolic 49–75; PULSE 77–157; O2SAT 91; BMI 22.4
[2023-12-31] MEDS: CARDIZEM 125 IV (01:34)
[2023-12-31] MEDS: OFIRMEV 100 IV ×4 (04:42→21:08)
[2023-12-31] MEDS: STERILE WATER FOR INJECTION 10 ML IV (05:50)
[2023-12-31] MEDS: MERREM 500 MG IV (05:50)
[2023-12-31] MEDS: PROTONIX IV 40 MG IV (08:01)
[2023-12-31] MEDS: NSS (PRESERVATIVE FREE) 10 ML IV (08:01)
[2023-12-31] MEDS: SOLU-CORTEF 50 MG IV ×2 (08:01→21:07)
--- NOTE | 2023-12-31 08:24 | W.PN.HOSP.TC ---
Addendum entered and electronically signed by Kartik Valero MD 12/31/23 14:09:
Anemia felt to be multifactorial from combination of blood loss anemia and dilutional effect of IV fluids
Original Note:
Today's Communication/Plan
-
Awaiting today's labs including LFTs on IV acetaminophen
Replete potassium as needed
NG tube clamped by CRS
Await function through ostomy
Hopefully can avoid TPN
IV fluids were turned off per nephrology and cardiology yesterday
Remains in have a to be placed back on diltiazem drip due to RVR
Assessment / Plan
Assessment / Plan
Physical Exam
General: Not in acute distress
HEENT: Normocephalic and Atraumatic. NG tube.
Respiratory: Equal air entry bilaterally, anteriorly.
Cardiac: S1/S2 and Regular Rhythm
GI: Soft, Nontender, Minimal to Mild Distension. Ileostomy in place.
Musculoskeletal: No Cyanosis and No Edema
Skin: Warm and Dry
Neuro: Awake, Alert and AAO x 3
Psych: Calm and Intact Judgment/Insight

COLONOSCOPY DECEMBER 27, 2023 PER SHIPPING [employer] SUPERVISOR'S REPORT:
Impression: - Preparation of the colon was poor.
- Hemorrhoids found on perianal exam.
- Stool in the rectum, in the recto-sigmoid colon and
in the sigmoid colon.
- Mucosal ulceration, black dusky necrotic mucosa in
the sigmoid colon concerning for necrosis/ischemia.
The colorectal surgeon was present to visualize the
mucosa and the case was discussed.
- No specimens collected.
Recommendation: - Manage as per colorectal surgery, likely bowel
resection now.

Assessment/Plan
Enterococcal Bacteremia
-Possible from the gastrointestinal tract
-Continue Meropenem
-Continue to follow cultures/microbiology studies
-Appreciate ID evaluation and recommendations
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
-On presentation, patient had not had a bowel movement in 8 days and also indicated that she had also had not taken anything to help alleviate her constipation
-Patient had also been on Tramadol outpatient
-ER provider disimpacted some stools and provided enema -- however after enema was given, no bowel movement resulted, therefore CT imaging was ordered
-CT showed significant amount of constipation and possible colitis (in the setting of bowel wall thickening), among other findings
-Consulted GI, recommendations appreciated
-Status post colonoscopy on December 27, 2023 with findings of significant amounts of stool, mucosal ulceration, black dusky necrotic mucosa in the sigmoid colon concerning for necrosis/ischemia.
-Patient therefore needed a subtotal colectomy with ileostomy on December 28, 2023
-Avoid narcotic pain medications as this can make the patient confused, as per patient's daughter
-Scheduled Ofirmev (IV Tylenol) started for pain control -- monitor AST and ALT while on this
-Avoid NSAIDs due to anemia and very recent surgery
-PT/OT
-TPN may be needed if cannot tolerate PO intake
-Continue NG tube with Low Intermittent Wall Suction (or as otherwise instructed by surgery team)
-Continue NPO (except for ice chips) and re-evaluate daily for return of bowel function
-Hold oral medications as they will likely not be absorbed predictably
-Continue to hold anticoagulation blood thinners as per surgery team
-Lovenox (for DVT prophylaxis) was on hold (due to anemia) but now okay to resume as per surgery team
-Encourage out of bed as able, physical therapy as able
Atrial Fibrillation with Rapid Ventricular Response
Tele with 3-5 second conversion pauses earlier this admission.
Weight Increased
-Appeared to be in sinus rhythm after AFib RVR but then went back to SR then back to AFib RVR
-Was on Cardizem Drip-->then off-->then back on Cardizem Drip
-Outpatient PO cardizem is on hold for reasons outlined above
-Hold Eliquis as per surgery team and for reasons above
-Can use as needed IV Lopressor for now for HR greater than 100 bpm (when Cardizem drip is off)
-Cardiology consulted, recommendations appreciated
-Lasix on December 30, 2023 for weight gain, continue to monitor for prn Lasix on a daily basis
-Echocardiogram for Sunday December 31, 2023
Atrial Fibrillation
History of Cardiac Ablation
History of 3 to 5-second conversion pauses.
-Sees hedis manager Dr. Ku as an outpatient
-Monitor on telemetry
-Hold home Eliquis (anticoagulation) as above
-Continue home Diltiazem when able
Left Lower Leg (Calf Area) Focal Pain and Swelling
-Left lower leg with in left calf area with pain and swelling
-DVT ultrasound performed on December 29, 2023 showed no Deep Vein Thrombosis
-X-Ray: no acute findings, with unremarkable soft tissue as per radiologist's report
-If focal pain continues, then can consider orthopedics consult and MRI to rule out a possible infection or occult bony pathology
-Continue regular neurovascular checks Q4H in all extremities
Hyponatremia
Metabolic Acidosis
Hypocalcemia
-Patient had not had anything to eat or drink for the 2-3 days prior to presentation
-Capping IV fluids
-IV prn Calcium
-Consulted nephrology, recommendations appreciated
Hypocalcemia
-Nephrology consulted, recommendations appreciated
-IV calcium
Hyperkalemia - RESOLVED
-Monitor BMP
Hypokalemia
-Monitor BMP daily
-Replacements have been ordered
Hypertension
-Continue home Diltiazem when able
Hyperlipidemia
-Continue home Atorvastatin when able
Hypothyroidism
-Continue home Levothyroxine when able
Sciatica
History of L5 Spinal Stenosis
History of Right Femoral Neck Fracture status post right hip hemiarthroplasty
-Continue home Gabapentin when able
History of nosebleed
History of Diverticulitis
History of Elevated Hepatic Transaminases
-Monitor CMP lab-work, especially in the setting of Ofirmev (IV Tylenol use)
History of Trigeminal Neuralgia
History of Appendectomy
On CT Imaging in November 2023 Admission:
1) 'Moderate size hiatal hernia with small volume fluid incompletely included on this study within the distal thoracic esophagus.'
2) 'Stable partial T11 vertebral compression fracture.'
3) 'Prior appendectomy.'
4) 'Right hip arthroplasty with prominent beam hardening artifact.'
Primary contact is daughter Theresa, who is [facility] here (phone: [phone])
On December 28, 2023, I spoke to patient's daughter Theresa. All questions and concerns were answered.
DVT Prophylaxis: Lovenox Resumed starting December 30, 2023. Also Sequential Compression Devices.
Code Status: Full Code
Anticipated Discharge: 24 - 48 hours
Subjective/Interval History
-
Date of Service: December 31, 2023
cRS clamp NG tube minimal output/no respiratory distress/not wearing oxygen when I walked in 88%/admits his continued abdominal pain/partially improved with IV Tylenol
Objective Data
-
Labs:
Laboratory Results
12/31/23
06:00
WBC Pending
Hgb Pending
Hct Pending
Plt Count Pending
Sodium Pending
Potassium Pending
Chloride Pending
Carbon Dioxide Pending
BUN Pending
Creatinine Pending
Glucose Pending
Calcium Pending
Total Bilirubin Pending
AST Pending
ALT Pending
Alkaline Phosphatase Pending
Vital Signs:
Vital Signs
Temp Pulse Resp BP Pulse Ox
98.5 F 82 15 100/61 96
12/31/23 07:56 12/31/23 07:30 12/31/23 07:30 12/31/23 06:14 12/31/23 07:30
I&O
12/30/23 12/31/23 01/01/24
06:59 06:59 06:59
Intake Total 1690 / 1690 615 / 615
Output Total 450 / 450 3675 / 3675
Balance 1240 / 1240 -3060 / -3060
Review of Systems
-
History Source: Patient and Family (Spoke to aleja Gagnon at bedside updated)
Respiratory: Reports Cough
Cardiac: Reports No Symptoms
Abdomen/GI: Reports Abdominal Pain and Constipated
Physical Exam
-
General: Well Developed
HEENT: Normocephalic
Respiratory: Clear to Auscultation
Cardiac: Regular Rhythm
GI: Soft, Tender (At around ostomy site) and Ostomy (Small amount of liquid output)
Neuro: Awake, Alert and Oriented
Psych: Calm
Data Reviewed
-
Labs: Labs Reviewed by me (Today's labs pending)
[2023-12-31 09:18] LABS: Hematocrit 26.7 % (37.0-47.0); Hemoglobin 9.6 g/dL (12.0-16.0); Mean Corpuscular Hgb 33.2 pg (27.0-31.0); Mean Corpuscular Volume 92.4 fL (81.0-99.0); Platelet Count 307 10^3/uL (130-400); Red Blood Cell Count 2.89 10^6/uL (4.20-5.40); Red Cell Dist. Width 17.2 % (11.5-14.5); White Blood Cell Count 14.9 10^3/uL (4.8-10.8)
[2023-12-31 09:40] LABS: ALT (SGPT) 34 U/L (0-35); AST (SGOT) 50 U/L (14-36); Albumin 2.6 g/dl (3.5-5.0); Alkaline Phosphatase 154 U/L (38-126); Blood Urea Nitrogen 22 mg/dl (7-17); Calcium 8.1 mg/dl (8.4-10.2); Carbon Dioxide 27 mmol/L (22-30); Chloride 96 mmol/L (98-107); Estimated Creatinine Clearance 58 ml/min; Glucose 84 mg/dl (70-99); Magnesium 2.1 mg/dl (1.6-2.3); Phosphorus 2.4 mg/dl (2.5-4.5); Potassium 3.6 mmol/L (3.5-5.1); Sodium 134 mmol/L (135-145); Total Bilirubin 1.8 mg/dl (0.2-1.3); Total Protein 4.7 g/dl (6.3-8.2); Triglycerides 237 mg/dl (10-149); eGFR > 60.00
[2023-12-31 10:04] LABS: Absolute Neutrophils -Man Diff 12.6 10^3/uL (1.4-6.5); Anisocytosis 1+; Band Neutrophils 4 % (0-3); Hypochromasia Slight; Lymphocytes 9 % (20-51); Metamyelocytes 3 % (-); Monocytes 1 % (2-9); Myelocytes 2 % (-); Normal RBC Morphology No; Platelets Checked Yes; Polychromasia Slight; Segmented Neutrophils 81 % (42-75); Total Cells Counted 100
--- NOTE | 2023-12-31 10:17 | PN.CDI ---
CDI
- -
CDI:
Physician Documentation Request
Admit Date: 12/28/23 07:54
Dear Doctor Amparo,
Clinical Indicators:
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
PMH includes PMR on chronic steroids.
12/29 PN, 'Enterococcal Bacteremia'
WBC on admission:
12/26/23
09:43
WBC 16.3 H
HR/RR trend on admission:
12/26/23
08:30 12/26/23
08:30 12/26/23
09:30
Pulse 93 93 92
Resp Rate 27 27 35
12/26/23
10:15 12/26/23
12:45 12/26/23
13:30
Pulse 92 97 99
Resp Rate 21 22
Please clarify which of the following most accurately describes the status of the patient's infection:
Sepsis, POA
- Systemic manifestations of infection, with 2 or more SIRS criteria which include:
- Fever >100.4 degrees F or hypothermia < 96.8 degrees F
- Leukocytosis - WBC > 12,000 or leukopenia - WBC < 4,000 or > 10% bands
- Tachycardia > 90 beats per minute
- Tachypnea - RR > 20 breaths per minute or PaCO2 , 32mmHg
Source: Merck Manual 2013
Enterococcal Bacteremia only
- Abnormal lab finding only, does not indicate systemic illness
Other, please specify
Use of terms such as suspected, likely, concern for, or probable (associated with a specific diagnosis that is being evaluated, monitored, or treated as if it exists) are acceptable and can be coded in the inpatient setting, when documented at the
time of discharge.
Thank you,
SOFYA Lei RN
CDI Specialist
available via tiger text
Please use your independent medical judgment in providing your response.
--- NOTE | 2023-12-31 10:38 | PN.CDI ---
CDI
- -
CDI:
Physician Documentation Request
Admit Date: 12/28/23 07:54
Dear Doctor Maddi,
Clinical Indicators:
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
Cr/GFR:
12/27/23 12/27/23
03:34 14:41
Creatinine 1.0 1.3 H
eGFR 55.55 40.55
Please clarify which of the following accurately represents the patient's renal status:
CHELSEA
Rise in creatinine only
Other, please specify
Criteria for CHELSEA*
1 Increase in serum creatinine by > or = to 0.3 mg/dL (> or = to 26.5 micromol/L) within 48 hours, OR
2 Increase in serum creatinine to > or = to 1.5 times baseline, which is known or presumed to have occurred within 7 days, OR
3 Urine volume < 0.5 nL/kg/hour for six hours
Use of terms such as suspected, likely, concern for, or probable (associated with a specific diagnosis that is being evaluated, monitored, or treated as if it exists) are acceptable and can be coded in the inpatient setting, when documented at the
time of discharge.
Thank you,
SOFYA Lei RN
CDI Specialist
available via tiger text
Please use your independent medical judgment in providing your response.
*Source: Kidney Disease: Improving Global Outcomes (KDIGO) 2012
--- NOTE | 2023-12-31 10:43 | PN.CDI ---
CDI
- -
CDI:
Physician Documentation Request
Admit Date: 12/28/23 07:54
Dear Doctor Marylu,
Clinical Indicators:
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
12/26 Anesthesia Report: EBL 50 ml
12/28 Surgery PN,'Acute anemia noted, likely component of hemodilution as well as expected intraoperative losses.'
12/30 PN,'Lovenox (for DVT prophylaxis) was on hold (due to anemia)'
Hgb/Hct trend:
12/26/23 12/28/23 12/29/23
09:43 06:27 05:22
Hgb 14.4 11.2 L 9.1 L
Hct 40.9 32.7 L 24.9 L
Based on the above, could you clarify, in your progress note, which of the following is the most likely type of anemia you are evaluating, monitoring and/or treating?
Anemia, multifactorial due to acute blood loss and hemodilution
Anemia due to hemodilution only
Other, please specify
Use of terms such as suspected, likely, concern for, or probable (associated with a specific diagnosis that is being evaluated, monitored, or treated as if it exists) are acceptable and can be coded in the inpatient setting, when documented at the
time of discharge.
Thank you,
SOFYA Lei RN
CDI Specialist
available via tiger text
Please use your independent medical judgment in providing your response.
--- NOTE | 2023-12-31 10:58 | W.PN.CARDCBS ---
Today's Communication / Plan
-
Continue IV diltiazem for rate control
Restart Eliquis when able
Restart oral diltiazem when able
Await echo
Impression / Plan
-
PCP: Dr. David Valdez
Cardiology: Dr. Ku
Impression:
Presented with abdominal pain
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
Enterococcal bacteremia
Paroxysmal atrial fibrillation w/ RVR
spontaneously converted to SR 12/29/23
Typical atrial flutter
s/p PVI, CTI flutter ablation, 08/25/19
Chronic Eliquis anticoagulation
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
HTN
HLD
GERD
Hypothyroidism
Arthritis
FARIDA 08/19/2019: EF 60 to 65%, mild MR
Plan:
She remains in atrial fibrillation, but on IV diltiazem her rate is now well-controlled. We will need to continue IV diltiazem until she is taking oral medications.
Echocardiography to be performed later today.
Eliquis is on hold. Restart when taking p.o.
Will discuss with colorectal surgery whether necrotic colon could have been due to an embolus from her atrial fibrillation.
At present we should probably continue a strategy of rate control only and should not attempt cardioversion with amiodarone or DC cardioversion given that Eliquis has been interrupted.
HPI: Diya is an 83-year-old female with past medical history of paroxysmal atrial fibrillation, typical atrial flutter status post PVI and CTI flutter ablation 08/25/2019, sick sinus syndrome, hypertension, hyperlipidemia, GERD, and
hypothyroidism. She presented to ER with nausea, abdominal pain, and constipation. She initially was felt to have colitis, however had worsening pain and was taken to the OR where she was found to have diffuse necrotic colon and underwent
colectomy with ileostomy. She has been recovering and this afternoon on 12/28/2023, she went into rapid atrial fibrillation. She has history of paroxysmal atrial fibrillation and typical atrial flutter with PVI in 2019. She has had no recurrences
of atrial fibrillation noted since her PVI. Cardiology consulted for rapid atrial fibrillation.
Progress Note - Pipelayer
Subjective
Date of Service: December 31, 2023:
Allergies: Amlodipine, cephalosporins, doxycycline, Vicodin, metoprolol, penicillin, sulfa
Outpatient meds apixaban 2.5 twice daily, diltiazem ER 120 a day, gabapentin, Synthroid, prednisone 10 mg every 48
Current hospital meds: Diltiazem ER 120 mg a day, apixaban 2.5 mg twice daily on hold, pantoprazole, meropenem, gabapentin, levothyroxine, IV diltiazem, hydrocortisone, Lovenox, ketorolac
PMH/PSH/SH/FH: Reviewed
ROS: Reviewed
Hemoglobin 14 hemoglobin 9.6, white count 14.9, platelets 307, potassium 3.4, BUN/creatinine 22 and 0.9
Objective
Labs:
12/31/23 08:42
12/31/23 08:42
Labs
Hgb 9.6 g/dL (12.0-16.0) L 12/31/23 08:42
Hct 26.7 % (37.0-47.0) L 12/31/23 08:42
Plt Count 307 10^3/uL (130-400) 12/31/23 08:42
Sodium 134 mmol/L (135-145) L 12/31/23 08:42
Potassium 3.6 mmol/L (3.5-5.1) 12/31/23 08:42
BUN 22 mg/dl (7-17) H 12/31/23 08:42
Creatinine 0.5 mg/dL (0.6-1.0) L 12/31/23 08:42
Glucose 84 mg/dl (70-99) 12/31/23 08:42
Vital Signs and I&O:
Vital Signs
Temp Pulse Resp BP Pulse Ox
36.9 C 78 14 114/49 93
12/31/23 07:56 12/31/23 08:30 12/31/23 08:30 12/31/23 08:00 12/31/23 08:30
Vital Signs
Temp Pulse Resp BP Pulse Ox
36.9 C 78 14 114/49 93
12/31/23 07:56 12/31/23 08:30 12/31/23 08:30 12/31/23 08:00 12/31/23 08:30
Intake & Output
12/29/23 12/30/23 12/31/23 01/01/24
07:59 07:59 07:59 07:59
Intake Total 2980 / 3010 1690 / 1690 615 / 615
Output Total 1250 / 1250 450 / 900 3675 / 3675
Balance 1730 / 1760 1240 / 790 -3060 / -3060
Physical Exam
Physical Exam
114/49, pulse, afebrile, sats 93%, intake and output -2.6 L, weight is 57.4 kg, down 1.2 kg
Frail, petite, NG tube in place
Head neck exam unremarkable
Lungs are clear
Irregular rate and rhythm, intermittently irregular with atrial flutter, no obvious murmurs, JVD okay
Abdomen incision intact
Extremities without edema
Neuro nonfocal
--- NOTE | 2023-12-31 11:00 | PN.CDI ---
CDI
- -
CDI:
Physician Documentation Request
Admit Date: 12/28/23 07:54
Dear Doctor Amparo,
Clinical Indicators:
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
12/28 PN, ' She also had some confusion with narcotic pain medications.'
12/29 (07:31) RN note, 'Patient with periods of confusion overnight and pulling at barros- medsitter in place and redirected.'
Patient receiving Dilaudid prn for pain
Sodium levels:
12/26/23 12/27/23 12/28/23
09:43 14:41 06:27
Sodium 125 L 126 L 127 L
12/29/23 12/30/23
05:22 03:33
Sodium 128 L 133 L
Based on the above, could you clarify which, if any of the following, is the most likely etiology of the confusion/altered mental status.
Acute Metabolic Encephalopathy
Acute Delirium - indicate known or suspected etiology such as postoperative, due to opioids or other drugs etc. Can also indicate unknown or mixed etiologies.
Other, please specify
Use of terms such as suspected, likely, concern for, or probable (associated with a specific diagnosis that is being evaluated, monitored, or treated as if it exists) are acceptable and can be coded in the inpatient setting, when documented at the
time of discharge.
Thank you,
SOFYA Lei RN
CDI Specialist
available via tiger text
Please use your independent medical judgment in providing your response.
--- NOTE | 2023-12-31 11:18 | W.PN.ID1 ---
Date of Service
Date of Service: December 31, 2023
Today's Communication
Continue antibiotics.
Assessment / Plan
Enterococcal bacteremia
Severe constipation.
Ischemic bowel
- s/p colon resection
Leukocytosis
- Current elevation may be secondary to stress dose steroids
Renal insufficiency
Multiple drug allergies.
Atrial fibrillation
HTN
Dyslipidemia
Sciatica
Lumbar spinal stenosis
PMR
Trigeminal neuralgia
Recommendations:
Repeat blood cultures negative.
Intraoperative cultures no growth.
Narrow to Unasyn. 'PCN allergy' noted, though patient tolerated Unasyn and Keflex in the past.
If no issues, will remove these allergies from her hospital allergy list.
����������������������������������������������������������
Chief Complaint
-: Other (Ischemic bowel)
Subjective / Review of Systems
Patient seen and examined. Still with some abdominal discomfort, but pain controlled.
Review of Systems: No Fever
Vital Signs / Physical Exam
Vital Signs
Vital Signs
Temp Pulse Resp BP Pulse Ox
98.5 F 78 14 114/49 93
12/31/23 07:56 12/31/23 08:30 12/31/23 08:30 12/31/23 08:00 12/31/23 08:30
Physical Exam
Constitutional: No Acute Distress and Comfortable
Eyes: Sclera Anicteric
Oropharyngeal: Other (NG tube in place.)
Cardiovascular: S1/S2; Negative S3/S4
Pulmonary: Non Labored
Gastrointestinal: Soft, Non Distended, Decreased Bowel Sounds, No Rebound and No Guarding
Neurological: Awake and Alert
Psychological: Calm
Objective Data
Lab Data
Lab Results
12/31/23 08:42
12/31/23 08:42
Estimated Creat Clear 58 ml/min 12/31/23 08:42
Total Bilirubin 1.8 mg/dl (0.2-1.3) H 12/31/23 08:42
AST 50 U/L (14-36) H 12/31/23 08:42
ALT 34 U/L (0-35) 12/31/23 08:42
Alkaline Phosphatase 154 U/L (38-126) H 12/31/23 08:42
Most recent labs reviewed.
Micro Results:
12/28/23 10:34 Blood Culture - Preliminary
Blood/Venous No Growth in 72 hours- Final report to follow
12/28/23 06:30 Blood Culture - Preliminary
Blood/Venous No Growth in 72 hours- Final report to follow
12/26/23 21:21 Blood Culture - Preliminary
Blood/Venous No Growth in 4 days- Final report to follow
12/27/23 20:06 Wound Culture - Preliminary
Abdomen No growth
Gram Stain - Preliminary
12/27/23 20:06 Anaerobic Culture - Preliminary
Abdomen Culture pending. Anaerobic cultures are examined after 3
days incubation. Additional information to follow.
12/26/23 20:10 Blood Culture - Final
Blood/Venous Enterococcus faecalis
Gram Stain - Final
Imaging:
12/26/2023 CT abdomen/pelvis: Sigmoid diverticulosis noted but study limited secondary to beam hardening artifact and lack of oral contrast. There is marked large volume of widespread colonic stool. Several areas of thickening of the wall of the
bowel with colitis being a consideration. No intestinal obstruction or free air noted. Please see full dictation for additional detail.
--- NOTE | 2023-12-31 11:50 | WOUNDNOTE ---
[facility] RN note: Daughter Theresa present who lives with patient for ostomy teaching. 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 Stoma pink and budded R side. Stoma size 1 1/4 inches. Patient gave this telegraphic typewriter repairer verbal
permission to order a Holden ostomy secure starter kit. Instructed patient and daughter how to empty pouch and change pouch using Holden wafer # [id number], Mariella seal and Holden pouch # [id number]. Change midline abdominal incisional dressing as
requested by PAULETTE Sena. Incision with jessica and jt intact, moderate sanguinous drainage. No surrounding erythema. Mid incision with an about 3cm bruise along incision. Ostomy supplies given. Colostomy teaching folder in room. Next
appliance change due .
[2023-12-31] MEDS: UNASYN IV ×2 (12:16→17:39)
--- NOTE | 2023-12-31 12:36 | W.PN.NEPH.PH ---
Today's Communication / Plan
-
observe
Assessment/Plan
-
Assessment:
Enterococcal bacteremia
Severe constipation.
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
Leukocytosis
Hyponatremia
Hypocalcemia
Metabolic acidosis
Atrial fibrillation
HTN
Dyslipidemia
Plan:
hyponatremia stable
hypokalemia -improved
mild hypophosphatemia-monitor if needed add neurta phos when starts po
for NGT removal today
monitor po intake, prn isotonic IVF
pey[place] is better and corrected in normal range
holding lasix
no TPN yet per surg
wean steroids
on Dilt gtt for Afib per cards
recent CHELSEA resolved, avoid NSAIDs if can
-
-
Date of Service: December 31, 2023
CC / HPI / ROS
-
Chief Complaint:
acidosis
History of Present Illness:
BP stable, remains in afib RVR
Na stable at 134
K better at 3.6
no po intake yet
Review of Systems:
no CP/SOB at rest
ostomy liquid stool
Labs
-
Labs:
WBC 14.9 10^3/uL (4.8-10.8) H 12/31/23 08:42
RBC 2.89 10^6/uL (4.20-5.40) L 12/31/23 08:42
Hgb 9.6 g/dL (12.0-16.0) L 12/31/23 08:42
Hct 26.7 % (37.0-47.0) L 12/31/23 08:42
Plt Count 307 10^3/uL (130-400) 12/31/23 08:42
Sodium 134 mmol/L (135-145) L 12/31/23 08:42
Potassium 3.6 mmol/L (3.5-5.1) 12/31/23 08:42
Chloride 96 mmol/L (98-107) L 12/31/23 08:42
Carbon Dioxide 27 mmol/L (22-30) 12/31/23 08:42
BUN 22 mg/dl (7-17) H 12/31/23 08:42
Creatinine 0.5 mg/dL (0.6-1.0) L 12/31/23 08:42
eGFR > 60.00 12/31/23 08:42
Glucose 84 mg/dl (70-99) 12/31/23 08:42
Calcium 8.1 mg/dl (8.4-10.2) L 12/31/23 08:42
Phosphorus 2.4 mg/dl (2.5-4.5) L 12/31/23 08:42
Albumin 2.6 g/dl (3.5-5.0) L 12/31/23 08:42
Physical Exam
-
Vital Signs:
Vital Signs
Temp Pulse Resp BP Pulse Ox
98.2 F 78 14 114/49 93
12/31/23 11:55 12/31/23 08:30 12/31/23 08:30 12/31/23 08:00 12/31/23 08:30
Cardiovascular:: Irregular rate and rhythm
Respiratory:: Bilateral: CTA (decreased)
Lung Excursion:: Normal
Abdomen:: Nontender and Soft
Extremity Edema:: None: Bilateral:
Keith Catheter: No
Other Findings::
UE mild edema
--- NOTE | 2023-12-31 13:00 | PTCARENOTE ---
Sagar lara. NENA lara without incident wound care saw pt .Pt now oob in chair
--- NOTE | 2023-12-31 13:36 | W.PN.CRS1 ---
Today's Communication / Plan
-
NG tube clamping trial
Clears if NG tube is removed
Assessment/Plan
-
83 yo female with h/o afib on Eliquis, HTN, hyperlipidemia, sciatica, diverticulitis, elevated LFT's, PMR on chronic steroids presenting with no BM for around 8 days and abdominal pain. CT with large volume colonic stool with colitis without
obstruction, free air or colonic pneumatosis. Decompressive colonoscopy was preformed by GI with evidence of ischemic bowel noted, taken to the OR for management.
POD #4 Exploratory laparotomy with total abdominal colectomy and end ileostomy.
Plan:
1. Continue IV Ofirmev ordered. Will add Toradol 15 Q6 IV.
2. NG tube clamping trial. If passes she can start on clears.
3. Wound RN for stoma teaching and dressing changes.
4. Continue to hold Eliquis another day. On lovenox. Continue SCD's.
5. Increase activity, OOB as able. PT consulted.
6. Discussed plan above with patient and son at bedside.
Subjective Data
Procedure
12/27/23 Exploratory laparotomy with total abdominal colectomy and end ileostomy.
Subjective Data
Date of Service: December 31, 2023
Patient states she is having flatus. She states that the Dilaudid makes her 'crazy' and she does not want to be on it anymore. She is still having pain. The NG tube is bothering her.
Objective Data
-
Vital Signs
Temp Pulse Resp BP Pulse Ox
98.2 F 78 14 114/49 93
12/31/23 11:55 12/31/23 08:30 12/31/23 08:30 12/31/23 08:00 12/31/23 08:30
Intake & Output
12/30/23 12/31/23 01/01/24
06:59 06:59 06:59
Intake Total 1690 / 1690 615 / 615 100 / 100
Output Total 450 / 450 3675 / 3675
Balance 1240 / 1240 -3060 / -3060 100 / 100
Intake:
IV fluids (Total) 1400 / 1400
IV piggybacks 200 / 200 435 / 435 100 / 100
Amount instilled into GI Tube ( 90 / 90 180 / 180
Total)
[place] Sump 90 / 90 180 / 180
Output:
Liquid stool amount 75 / 75
Rectum 75 / 75
Gastrointestinal tube output ( 150 / 150 300 / 300
Total)
[place] Sump 150 / 150 300 / 300
Urine, Keith 300 / 300 3300 / 3300
Lab Results
12/31/23 08:42
12/31/23 08:42
Physical Exam
-
General: No Acute Distress and AOx3
Abdomen: Soft, Non Distended, Tender (Around incision) and Other (Ileostomy warm and pink with flatus)
Skin: Warm and Dry
Incision: Clear, Dry, Intact
[2023-12-31] MEDS: TORADOL 15 MG IV (14:25)
--- NOTE | 2023-12-31 15:01 | CON.MD ---
Documented by User: Judith Arriola PA-C 12/31/23 17:07
Consultation - Medical
-
Referring Provider: Kartik Hooker
Chief Complaint: Debiity s/p colectomy and end ileostomy
History of Present Illness: 83 yo female with PMH of ( afib on Eliquis, HTN, hyperlipidemia, sciatica, Lumbar Spinal stenosis, diverticulitis, hypothyroidism, elevated LFT's, PMR on chronic steroids, right femoral neck fracture s/p hemiarthroplasty)
presenting with no BM for around 8 days and abdominal pain. CT with large volume colonic stool with colitis without obstruction, free air or colonic pneumatosis. Decompressive colonoscopy was preformed by GI with evidence of ischemic bowel noted,
taken to the OR for management. S/P Exploratory laparotomy with total abdominal colectomy and end ileostomy. on 12/28/2023 then went into atrial fibrillation postoperatively. She was placed on a Cardizem drip but ventricular rates remain elevated.
She does take Eliquis but this has been held postoperatively. Her NG has been discontinued. Currently on liquids. Says she is tolerating it well. Denies any pain
Past Medical History: Afib on Eliquis, HTN, hyperlipidemia, sciatica, diverticulitis, elevated LFT's, PMR on chronic steroids, hypothyroidism,
Procedure History: Appendectomy, right hip hemiarthroplasty,
Family History: non contributory
Social History:
Functional Level Premorbidly: Independent with all activities
Functional Level Currently: Bed mobility - min assist, transfer-min assist, ambulation-4 feet to bedside-chair with rolling walker, toileting-dependent, lower extremity care-dependent,
Tobacco: Former smoker
Alcohol: occasional
Drug use: Denies
Lives with: spouse
24-hour assistance available:
Number of floors: one story home
# steps to enter: 3
# steps to second floor: none
Potential First floor set up:yes
Driving: yes
Occupation: retired
�
Allergies:
Allergy/AdvReac Type Severity Reaction Status Date / Time
amlodipine Allergy Nausea Verified 12/24/23 06:30
Cephalosporins Allergy Hives Verified 12/24/23 06:30
doxycycline Allergy Hives Verified 12/24/23 06:30
hydrocodone [From Vicodin] Allergy Vomiting Verified 12/27/23 17:56
metoprolol [From Lopressor] Allergy Dizzy Verified 12/24/23 06:30
penicillin V Allergy Hives Verified 12/24/23 06:30
Penicillins Allergy Hives Verified 12/24/23 06:30
Sulfa (Sulfonamide Allergy Hives Verified 12/24/23 06:30
Antibiotics)
sulfamethoxazole Allergy Rash Verified 12/24/23 06:30
[From Bactrim]
trimethoprim [From Bactrim] Allergy Rash Verified 12/24/23 06:30
Review of Systems:
Constitutional: (x) Normal _
Eye: (x) Normal _
Ear/Nose/Throat: (x) Normal _
Respiratory: (x) Normal _
Cardiovascular: (x) Normal _
Gastrointestinal: (x) s/p exploratory colectomy and end ileostomy
Genitourinary: (x) Normal _
Musculoskeletal: (x) Normal _
Integumentary: (x) Normal _
Neurologic: (x) Normal _
Psychiatric: (x) Normal _
Endocrine: (x) Normal _
Hematologic/Lymphatic: (x) Normal _
Allergic/Immunologic: (x) Normal _
Medications:
Active Current Visit Medication List
Category Date Time Status
0.9% Sodium Chloride [Nss (Preservative Free)] Med 12/27/23 08:00 Active
10 ml IV DAILY
Acetaminophen 1000MG/100Ml [Ofirmev] Med 12/31/23 10:00 Active
1,000 mg in 100 ml IV Q6H
Ampicillin/Sulbactam 3 G [Unasyn] 3 gm Med 12/31/23 12:00 Active
0.9% Sodium Chloride 100 ml [Nss] 100 ml
IV Q6H
Apixaban [Eliquis] Med 12/26/23 20:00 Hold
2.5 mg PO BID
Diltiazem 125 mg/125 ml Nss [Cardizem] Med 12/28/23 14:00 Active
125 mg in 125 ml IV PER PROTOCOL
Diltiazem Extended Release [Cardizem Cd] Med 12/27/23 08:00 Hold
120 mg PO DAILY
Enoxaparin Sodium [Lovenox] Med 12/30/23 18:00 Active
40 mg SC QPM
Flush (0.9% Sodium Chloride) [Flush (Nss)] Med 12/29/23 12:00 Active
See Dose Instructions IV PER PROTOCOL
Gabapentin [Neurontin] Med 12/29/23 08:00 Hold
300 mg TUBE DAILY
HYDROmorphone [Dilaudid] Med 12/27/23 22:55 Hold
0.25 mg IV Q4HPRN PRN
HYDROmorphone [Dilaudid] Med 12/27/23 22:55 Hold
0.5 mg IV Q4HPRN PRN
Hydrocortisone Sod Succinate [Solu-Cortef] Med 12/30/23 20:00 Active
50 mg IV Q12
Ketorolac [Toradol] Med 12/31/23 12:00 Active
15 mg IV Q6H
Levothyroxine [Synthroid] Med 12/28/23 13:38 Hold
75 mcg TUBE DAILY@0600
Metoprolol [Lopressor] Med 12/29/23 11:03 Active
5 mg IV Q4HPRN PRN
Pantoprazole [Protonix IV] Med 12/27/23 08:00 Active
40 mg IV DAILY
Vitals:
Temp Pulse Resp BP Pulse Ox
98.2 F 78 14 114/49 93
12/31/23 11:55 12/31/23 08:30 12/31/23 08:30 12/31/23 08:00 12/31/23 08:30
Height 5 ft 3 in
Actual Weight 57.4 kg
Body Mass Index (BMI) 22.4
Physical Exam:
General Appearance/Observation: Well-developed, well-nourished individual in no apparent distress.
Pain/Comfort Assessment: Denies
Mood/Affect: Appropriate
Integumentary/Operative Site:
�� Pressure Ulcer Evaluation: absent over heels.
��
�� Other Type of Wound: bruise on right side of face
��
Eyes: Conjunctiva/Lids: normal ��� Pupils: pupils equal round and reactive to light and Accommodation
Ears/Nose/Throat: oral mucosa moist,� throat clear.������������ Lips/Teeth/Gums: normal
Neck: No muscle spasm or tenderness
Cardiovascular: Heart: regular, no murmur
Pulses: dorsalis pedis 1+ bilaterally
Respiratory: Respiratory Effort/Chest Expansion: normal ������ Auscultation: Clear to auscultation bilaterally
Gastrointestinal: abdomen not tender, no distension, diminished abdominal bowel sounds
colostomy
Genitourinary: No Keith
Extremities: Edema: trace edema-feet, left ankle tender with palpation. No calf tenderness Cyanosis: None Trophic changes: None
Neurology Exam:
Orientation: Alert, Oriented to self, Place. Not to month, date, year
Memory: impairment for immediate medical issues
Higher cortical function
Repetition: impaired
Comprehension: impaired, confused? slow to process
Two step command: impaired, slow to process, needing repetition
Naming: Intact
Cranial Nerves:
�� CNII: Pupillary light reflex: Intact��� Visual Field: Intact
�� CN III, IV, : Extraocular muscles: Intact
�� CN V: Facial Sensation at Forehead: Intact, Maxilla: Intact, Mandible: Intact
�� CN VII: Facial movement: Symmetric
�� CN VIII: Hearing: Normal
�� CN IX/X: Speech & swallow: Normal, Position of Uvula: Midline
�� CN XI: Shoulder shrug: Symmetric
�� CN XII: Tongue protrusion: Midline
Sensory:
�� Light touch: Intact in bilateral upper and lower extremities
��
Reflexes:
�� Biceps: 1+ bilaterally
�� Brachioradialis: 1+ bilaterally
�� Triceps: 1+ bilaterally
�� Patellar: 1+ bilaterally
�� Achilles: 1+ bilaterally
�� Babinski: no respnse bilaterally
�� Clonus: None
�� Wilner: Negative bilaterally
Cerebellar: Dysmetria/Ataxia: None
Musculoskeletal:
Motor: (Manual muscle scale 0-5)
Muscle SA EF WE EE FF FA HF KE DF EHL PF
Right� 5 5 5 4 5 5 4 4 5 5 5
Left 5 5 5 4 5 5 4 4 5 5 5
Tone: Normal in all extremities
Range of Motion: Passively within normal limits in all extremities, deferred lower extremities
Lab Results
Labs
WBC 14.9 10^3/uL (4.8-10.8) H 12/31/23 08:42
RBC 2.89 10^6/uL (4.20-5.40) L 12/31/23 08:42
Hgb 9.6 g/dL (12.0-16.0) L 12/31/23 08:42
Hct 26.7 % (37.0-47.0) L 12/31/23 08:42
MCV 92.4 fL (81.0-99.0) 12/31/23 08:42
MCH 33.2 pg (27.0-31.0) H 12/31/23 08:42
MCHC 36.0 g/dL (33.0-37.0) 12/31/23 08:42
RDW 17.2 % (11.5-14.5) H 12/31/23 08:42
Plt Count 307 10^3/uL (130-400) 12/31/23 08:42
Plt Count Comment Yes 12/31/23 08:42
MPV 10.0 fL (7.4-10.4) 12/31/23 08:42
Abs Immat Gran (auto) 0.1 10^3/uL (0-0.05) H 12/26/23 09:43
Absolute Neuts (auto) 14.5 10^3/uL (1.4-6.5) H 12/26/23 09:43
Absolute Lymphs (auto) 0.3 10^3/uL (1.2-3.4) L 12/26/23 09:43
Absolute Monos (auto) 1.3 10^3/uL (0.1-0.6) H 12/26/23 09:43
Absolute Eos (auto) 0.1 10^3/uL (0-0.7) 12/26/23 09:43
Absolute Basos (auto) 0.1 10^3/uL (0-0.2) 12/26/23 09:43
Total Counted 100 12/31/23 08:42
Immature Gran % 0.4 % (0-0.5) 12/26/23 09:43
Neutrophils % 88.7 % (42.2-75.2) H 12/26/23 09:43
Lymphocytes % 2.0 % (20.5-51.1) L 12/26/23 09:43
Monocytes % 7.8 % (1.7-9.3) 12/26/23 09:43
Eosinophils % 0.4 % (0-6) 12/26/23 09:43
Basophils % 0.7 % (0-2) 12/26/23 09:43
Nucleated RBC % 0.1 % 12/30/23 03:33
Abs Neuts (Manual) 12.6 10^3/uL (1.4-6.5) H 12/31/23 08:42
Segmented Neutrophils 81 % (42-75) H 12/31/23 08:42
Band Neutrophils 4 % (0-3) H D 12/31/23 08:42
Lymphocytes (Manual) 9 % (20-51) L 12/31/23 08:42
Monocytes (Manual) 1 % (2-9) L 12/31/23 08:42
Metamyelocytes 3 % (-) 12/31/23 08:42
Myelocytes 2 % (-) 12/31/23 08:42
Normal RBC Morphology No 12/31/23 08:42
Polychromasia Slight 12/31/23 08:42
Hypochromasia Slight 12/31/23 08:42
Anisocytosis 1+ 12/31/23 08:42
Ovalocytes Slight 12/29/23 05:22
Acanthocytes (Spur) Slight 12/27/23 03:34
Sodium 134 mmol/L (135-145) L 12/31/23 08:42
Potassium 3.6 mmol/L (3.5-5.1) 12/31/23 08:42
Chloride 96 mmol/L (98-107) L 12/31/23 08:42
Carbon Dioxide 27 mmol/L (22-30) 12/31/23 08:42
BUN 22 mg/dl (7-17) H 12/31/23 08:42
Creatinine 0.5 mg/dL (0.6-1.0) L 12/31/23 08:42
Estimated Creat Clear 58 ml/min 12/31/23 08:42
eGFR > 60.00 12/31/23 08:42
Glucose 84 mg/dl (70-99) 12/31/23 08:42
Serum Osmolality Cancelled 12/27/23 17:27
Calcium 8.1 mg/dl (8.4-10.2) L 12/31/23 08:42
Phosphorus 2.4 mg/dl (2.5-4.5) L 12/31/23 08:42
Magnesium 2.1 mg/dl (1.6-2.3) 12/31/23 08:42
Total Bilirubin 1.8 mg/dl (0.2-1.3) H 12/31/23 08:42
AST 50 U/L (14-36) H 12/31/23 08:42
ALT 34 U/L (0-35) 12/31/23 08:42
Alkaline Phosphatase 154 U/L (38-126) H 12/31/23 08:42
Total Protein 4.7 g/dl (6.3-8.2) L 12/31/23 08:42
Albumin 2.6 g/dl (3.5-5.0) L 12/31/23 08:42
Prealbumin 11.0 mg/dl (17.6-36.0) L 12/31/23 08:42
Triglycerides 237 mg/dl (10-149) H 12/31/23 08:42
TSH (Reflex) 4.66 uIU/ml (0.47-4.68) 12/28/23 20:58
Urine Osmolality 550 mOsm/kg (300-900) 12/28/23 00:21
Urine Sodium 65 mmol/L (30-90) 12/28/23 00:21
Hepatitis A IgM Ab Negative (Negative) 12/27/23 03:34
Hepatitis A Ab Total Negative (Negative) 12/27/23 03:34
Hep Bs Antigen Negative (Negative) 12/27/23 03:34
Hep Bs Antibody Negative 12/27/23 03:34
Hep B Core Total Ab Negative (Negative) 12/27/23 03:34
Hepatitis C Antibody Negative (Negative) 12/27/23 03:34
�
Diagnostic Results: as per HPI
Assessment 83 yo female with PMH of ( afib on Eliquis, HTN, hyperlipidemia, sciatica, Lumbar Spinal stenosis, diverticulitis, hypothyroidism, elevated LFT's, PMR on chronic steroids, right femoral neck fracture s/p hemiarthroplasty) presenting with
no BM for around 8 days and abdominal pain. CT with large volume colonic stool with colitis without obstruction, free air or colonic pneumatosis. Decompressive colonoscopy was preformed by GI with evidence of ischemic bowel noted, taken to the OR
for management. S/P Exploratory laparotomy with total abdominal colectomy and end ileostomy. on 12/28/2023 then went into atrial fibrillation postoperatively. She was placed on a Cardizem drip but ventricular rates remain elevated. She does take
Eliquis but this has been held postoperatively. Her NG has been discontinued. Currently on liquids. Says she is tolerating it well. Denies any pain
Plan
PT/OT to increase independence with ADLs, improve balance, coordination, endurance, strength, mobility, community reintegration, decreased burden of care on others and family education.
Debility s/p colectomy and end Ileostomy with acute cognitive impairment:Ampicillin IV 3g. PT/OT/Speech
HTN: continue medications, monitor closely
HLD: not on med.
Atrial fibrillation:� Diltiazem IV, metoprolol prn IV�. Eliquis when able���������������������������������������
Hypothyroidism: levothyroxine 75mcg
Bilateral lower extremity edema: Consider TEDS as able. Increased fluid will cause more force requirement to move lower extremities which requires more strength and increases fatigue.
Anemia: Likely multifactorial.� Hgb 9.6. Continue to monitor.
Psych: Psychology consult.� Monitor mood, adjust medications as needed.
Skin: monitor for pressure sores/rashes/lesions.
Pain: acetaminophen or hydromorphone IV as needed.
CHELSEA: Bun 22, creatinine 0.5 - Improved. Monitor
Bowel: colostomy
Bladder: Time void, PVRs, PRN straight cath.Keith removed.
GI Prophylaxis: Pantoprazole Will need to be converted to PO when able
DVT Prophylaxis: Lovenox to be switched to Eliquis when able
Pulmonary: Incentive spirometry
Safety: Continue to reinforce assistance with all transfers.
Code Status:� Full code
Dispo (date/plan/equipment needs): Home with family care.� Social history reviewed.
Functional and Medical Goals: Modified Independent with ADL�s, ambulation, transfers
Summary of recommendations:
- Discharge Destination: Patient s/p colectomy and end ileostomy with debility, Afib with rapid heart rate and some acute cognition changes with current status of ambulation of 4 feet to bedside chair with rolling walker, toileting dependent, lower
extremities care dependent, transfers at min assist, would benefit from acute inpatient rehabilitation for PT/OT to increase independence with ADLs, improve balance, coordination, endurance, strength, mobility, and community reintegration.
Debility s/p colectomy and end Ileostomy with Afib with rapid ventricular response and acute cognitive impairment:Ampicillin IV 3g. PT/OT/Speech.
Pain: acetaminophen or hydromorphone IV as needed. Patient needs to be stable on PO pain medicine prior to transfer. Off IV .
Bilateral lower extremity edema: Consider TEDS as able. Increased fluid will cause more force requirement to move lower extremities which requires more strength and increases fatigue.
DVT Prophylaxis: Lovenox to be switched to Eliquis when able
Bladder: Time void, PVRs, PRN straight cath.Keith removed.
GI Prophylaxis: Pantoprazole Will need to be converted to PO when able.
Pulmonary: Incentive spirometry
Atrial fibrillation:� Diltiazem IV, metoprolol prn IV�. Eliquis when able���������������������������������������
Thank you for allowing me to care for your patient. Please contact me with any questions or concerns.

Documented by User: Maycol Lundy MD 12/31/23 17:31
Consultation - Medical
-
Referring Provider: Kartik Hooker
Chief Complaint: Debiity s/p colectomy and end ileostomy
History of Present Illness: 83 yo female with PMH of ( afib on Eliquis, HTN, hyperlipidemia, sciatica, Lumbar Spinal stenosis, diverticulitis, hypothyroidism, elevated LFT's, PMR on chronic steroids, right femoral neck fracture s/p hemiarthroplasty)
presenting with no BM for around 8 days and abdominal pain. CT with large volume colonic stool with colitis without obstruction, free air or colonic pneumatosis. Decompressive colonoscopy was preformed by GI with evidence of ischemic bowel noted,
taken to the OR for management. S/P Exploratory laparotomy with total abdominal colectomy and end ileostomy. on 12/28/2023 then went into atrial fibrillation postoperatively. She was placed on a Cardizem drip but ventricular rates remain elevated.
She does take Eliquis but this has been held postoperatively. Her NG has been discontinued. Currently on liquids. Says she is tolerating it well. Denies any pain
Past Medical History: Afib on Eliquis, HTN, hyperlipidemia, sciatica, diverticulitis, elevated LFT's, PMR on chronic steroids, hypothyroidism,
Procedure History: Appendectomy, right hip hemiarthroplasty,
Family History: non contributory
Social History:
Functional Level Premorbidly: Independent with all activities
Functional Level Currently: Bed mobility - min assist, transfer-min assist, ambulation-4 feet to bedside-chair with rolling walker, toileting-dependent, lower extremity care-dependent,
Tobacco: Former smoker
Alcohol: occasional
Drug use: Denies
Lives with: spouse
24-hour assistance available:
Number of floors: one story home
# steps to enter: 3
# steps to second floor: none
Potential First floor set up:yes
Driving: yes
Occupation: retired
�
Allergies:
Allergy/AdvReac Type Severity Reaction Status Date / Time
amlodipine Allergy Nausea Verified 12/24/23 06:30
Cephalosporins Allergy Hives Verified 12/24/23 06:30
doxycycline Allergy Hives Verified 12/24/23 06:30
hydrocodone [From Vicodin] Allergy Vomiting Verified 12/27/23 17:56
metoprolol [From Lopressor] Allergy Dizzy Verified 12/24/23 06:30
penicillin V Allergy Hives Verified 12/24/23 06:30
Penicillins Allergy Hives Verified 12/24/23 06:30
Sulfa (Sulfonamide Allergy Hives Verified 12/24/23 06:30
Antibiotics)
sulfamethoxazole Allergy Rash Verified 12/24/23 06:30
[From Bactrim]
trimethoprim [From Bactrim] Allergy Rash Verified 12/24/23 06:30
Review of Systems:
Constitutional: (x) Normal _
Eye: (x) Normal _
Ear/Nose/Throat: (x) Normal _
Respiratory: (x) Normal _
Cardiovascular: (x) Normal _
Gastrointestinal: (x) s/p exploratory colectomy and end ileostomy
Genitourinary: (x) Normal _
Musculoskeletal: (x) Normal _
Integumentary: (x) Normal _
Neurologic: (x) Normal _
Psychiatric: (x) Normal _
Endocrine: (x) Normal _
Hematologic/Lymphatic: (x) Normal _
Allergic/Immunologic: (x) Normal _
Medications:
Active Current Visit Medication List
Category Date Time Status
0.9% Sodium Chloride [Nss (Preservative Free)] Med 12/27/23 08:00 Active
10 ml IV DAILY
Acetaminophen 1000MG/100Ml [Ofirmev] Med 12/31/23 10:00 Active
1,000 mg in 100 ml IV Q6H
Ampicillin/Sulbactam 3 G [Unasyn] 3 gm Med 12/31/23 12:00 Active
0.9% Sodium Chloride 100 ml [Nss] 100 ml
IV Q6H
Apixaban [Eliquis] Med 12/26/23 20:00 Hold
2.5 mg PO BID
Diltiazem 125 mg/125 ml Nss [Cardizem] Med 12/28/23 14:00 Active
125 mg in 125 ml IV PER PROTOCOL
Diltiazem Extended Release [Cardizem Cd] Med 12/27/23 08:00 Hold
120 mg PO DAILY
Enoxaparin Sodium [Lovenox] Med 12/30/23 18:00 Active
40 mg SC QPM
Flush (0.9% Sodium Chloride) [Flush (Nss)] Med 12/29/23 12:00 Active
See Dose Instructions IV PER PROTOCOL
Gabapentin [Neurontin] Med 12/29/23 08:00 Hold
300 mg TUBE DAILY
HYDROmorphone [Dilaudid] Med 12/27/23 22:55 Hold
0.25 mg IV Q4HPRN PRN
HYDROmorphone [Dilaudid] Med 12/27/23 22:55 Hold
0.5 mg IV Q4HPRN PRN
Hydrocortisone Sod Succinate [Solu-Cortef] Med 12/30/23 20:00 Active
50 mg IV Q12
Ketorolac [Toradol] Med 12/31/23 12:00 Active
15 mg IV Q6H
Levothyroxine [Synthroid] Med 12/28/23 13:38 Hold
75 mcg TUBE DAILY@0600
Metoprolol [Lopressor] Med 12/29/23 11:03 Active
5 mg IV Q4HPRN PRN
Pantoprazole [Protonix IV] Med 12/27/23 08:00 Active
40 mg IV DAILY
Vitals:
Temp Pulse Resp BP Pulse Ox
98.2 F 78 14 114/49 93
12/31/23 11:55 12/31/23 08:30 12/31/23 08:30 12/31/23 08:00 12/31/23 08:30
Height 5 ft 3 in
Actual Weight 57.4 kg
Body Mass Index (BMI) 22.4
Physical Exam:
General Appearance/Observation: Well-developed, well-nourished individual in no apparent distress.
Pain/Comfort Assessment: Denies
Mood/Affect: Appropriate
Integumentary/Operative Site:
�� Pressure Ulcer Evaluation: absent over heels.
��
�� Other Type of Wound: bruise on right side of face
��
Eyes: Conjunctiva/Lids: normal ��� Pupils: pupils equal round and reactive to light and Accommodation
Ears/Nose/Throat: oral mucosa moist,� throat clear.������������ Lips/Teeth/Gums: normal
Neck: No muscle spasm or tenderness
Cardiovascular: Heart: regular, no murmur
Pulses: dorsalis pedis 1+ bilaterally
Respiratory: Respiratory Effort/Chest Expansion: normal ������ Auscultation: Clear to auscultation bilaterally
Gastrointestinal: abdomen not tender, no distension, diminished abdominal bowel sounds
colostomy
Genitourinary: No Keith
Extremities: Edema: trace edema-feet, left ankle tender with palpation. No calf tenderness Cyanosis: None Trophic changes: None
Neurology Exam:
Orientation: Alert, Oriented to self, Place. Not to month, date, year
Memory: impairment for immediate medical issues
Higher cortical function
Repetition: impaired
Comprehension: impaired, confused? slow to process
Two step command: impaired, slow to process, needing repetition
Naming: Intact
Cranial Nerves:
�� CNII: Pupillary light reflex: Intact��� Visual Field: Intact
�� CN III, IV, : Extraocular muscles: Intact
�� CN V: Facial Sensation at Forehead: Intact, Maxilla: Intact, Mandible: Intact
�� CN VII: Facial movement: Symmetric
�� CN VIII: Hearing: Normal
�� CN IX/X: Speech & swallow: Normal, Position of Uvula: Midline
�� CN XI: Shoulder shrug: Symmetric
�� CN XII: Tongue protrusion: Midline
Sensory:
�� Light touch: Intact in bilateral upper and lower extremities
��
Reflexes:
�� Biceps: 1+ bilaterally
�� Brachioradialis: 1+ bilaterally
�� Triceps: 1+ bilaterally
�� Patellar: 1+ bilaterally
�� Achilles: 1+ bilaterally
�� Babinski: no respnse bilaterally
�� Clonus: None
�� Wilner: Negative bilaterally
Cerebellar: Dysmetria/Ataxia: None
Musculoskeletal:
Motor: (Manual muscle scale 0-5)
Muscle SA EF WE EE FF FA HF KE DF EHL PF
Right� 5 5 5 4 5 5 4 4 5 5 5
Left 5 5 5 4 5 5 4 4 5 5 5
Tone: Normal in all extremities
Range of Motion: Passively within normal limits in all extremities, deferred lower extremities
Lab Results
Labs
WBC 14.9 10^3/uL (4.8-10.8) H 12/31/23 08:42
RBC 2.89 10^6/uL (4.20-5.40) L 12/31/23 08:42
Hgb 9.6 g/dL (12.0-16.0) L 12/31/23 08:42
Hct 26.7 % (37.0-47.0) L 12/31/23 08:42
MCV 92.4 fL (81.0-99.0) 12/31/23 08:42
MCH 33.2 pg (27.0-31.0) H 12/31/23 08:42
MCHC 36.0 g/dL (33.0-37.0) 12/31/23 08:42
RDW 17.2 % (11.5-14.5) H 12/31/23 08:42
Plt Count 307 10^3/uL (130-400) 12/31/23 08:42
Plt Count Comment Yes 12/31/23 08:42
MPV 10.0 fL (7.4-10.4) 12/31/23 08:42
Abs Immat Gran (auto) 0.1 10^3/uL (0-0.05) H 12/26/23 09:43
Absolute Neuts (auto) 14.5 10^3/uL (1.4-6.5) H 12/26/23 09:43
Absolute Lymphs (auto) 0.3 10^3/uL (1.2-3.4) L 12/26/23 09:43
Absolute Monos (auto) 1.3 10^3/uL (0.1-0.6) H 12/26/23 09:43
Absolute Eos (auto) 0.1 10^3/uL (0-0.7) 12/26/23 09:43
Absolute Basos (auto) 0.1 10^3/uL (0-0.2) 12/26/23 09:43
Total Counted 100 12/31/23 08:42
Immature Gran % 0.4 % (0-0.5) 12/26/23 09:43
Neutrophils % 88.7 % (42.2-75.2) H 12/26/23 09:43
Lymphocytes % 2.0 % (20.5-51.1) L 12/26/23 09:43
Monocytes % 7.8 % (1.7-9.3) 12/26/23 09:43
Eosinophils % 0.4 % (0-6) 12/26/23 09:43
Basophils % 0.7 % (0-2) 12/26/23 09:43
Nucleated RBC % 0.1 % 12/30/23 03:33
Abs Neuts (Manual) 12.6 10^3/uL (1.4-6.5) H 12/31/23 08:42
Segmented Neutrophils 81 % (42-75) H 12/31/23 08:42
Band Neutrophils 4 % (0-3) H D 12/31/23 08:42
Lymphocytes (Manual) 9 % (20-51) L 12/31/23 08:42
Monocytes (Manual) 1 % (2-9) L 12/31/23 08:42
Metamyelocytes 3 % (-) 12/31/23 08:42
Myelocytes 2 % (-) 12/31/23 08:42
Normal RBC Morphology No 12/31/23 08:42
Polychromasia Slight 12/31/23 08:42
Hypochromasia Slight 12/31/23 08:42
Anisocytosis 1+ 12/31/23 08:42
Ovalocytes Slight 12/29/23 05:22
Acanthocytes (Spur) Slight 12/27/23 03:34
Sodium 134 mmol/L (135-145) L 12/31/23 08:42
Potassium 3.6 mmol/L (3.5-5.1) 12/31/23 08:42
Chloride 96 mmol/L (98-107) L 12/31/23 08:42
Carbon Dioxide 27 mmol/L (22-30) 12/31/23 08:42
BUN 22 mg/dl (7-17) H 12/31/23 08:42
Creatinine 0.5 mg/dL (0.6-1.0) L 12/31/23 08:42
Estimated Creat Clear 58 ml/min 12/31/23 08:42
eGFR > 60.00 12/31/23 08:42
Glucose 84 mg/dl (70-99) 12/31/23 08:42
Serum Osmolality Cancelled 12/27/23 17:27
Calcium 8.1 mg/dl (8.4-10.2) L 12/31/23 08:42
Phosphorus 2.4 mg/dl (2.5-4.5) L 12/31/23 08:42
Magnesium 2.1 mg/dl (1.6-2.3) 12/31/23 08:42
Total Bilirubin 1.8 mg/dl (0.2-1.3) H 12/31/23 08:42
AST 50 U/L (14-36) H 12/31/23 08:42
ALT 34 U/L (0-35) 12/31/23 08:42
Alkaline Phosphatase 154 U/L (38-126) H 12/31/23 08:42
Total Protein 4.7 g/dl (6.3-8.2) L 12/31/23 08:42
Albumin 2.6 g/dl (3.5-5.0) L 12/31/23 08:42
Prealbumin 11.0 mg/dl (17.6-36.0) L 12/31/23 08:42
Triglycerides 237 mg/dl (10-149) H 12/31/23 08:42
TSH (Reflex) 4.66 uIU/ml (0.47-4.68) 12/28/23 20:58
Urine Osmolality 550 mOsm/kg (300-900) 12/28/23 00:21
Urine Sodium 65 mmol/L (30-90) 12/28/23 00:21
Hepatitis A IgM Ab Negative (Negative) 12/27/23 03:34
Hepatitis A Ab Total Negative (Negative) 12/27/23 03:34
Hep Bs Antigen Negative (Negative) 12/27/23 03:34
Hep Bs Antibody Negative 12/27/23 03:34
Hep B Core Total Ab Negative (Negative) 12/27/23 03:34
Hepatitis C Antibody Negative (Negative) 12/27/23 03:34
�
Diagnostic Results: as per HPI
Assessment 83 yo female with PMH of (afib on Eliquis, HTN, hyperlipidemia, sciatica, Lumbar Spinal stenosis, diverticulitis, hypothyroidism, elevated LFT's, PMR on chronic steroids, right femoral neck fracture s/p hemiarthroplasty) presenting with
no BM for around 8 days and abdominal pain. CT with large volume colonic stool with colitis without obstruction, free air or colonic pneumatosis. Decompressive colonoscopy was preformed by GI with evidence of ischemic bowel noted, taken to the OR
for management. S/P Exploratory laparotomy with total abdominal colectomy and end ileostomy. on 12/28/2023 then went into atrial fibrillation postoperatively. She was placed on a Cardizem drip but ventricular rates remain elevated. She does take
Eliquis but this has been held postoperatively. Her NG has been discontinued. Currently on liquids. Says she is tolerating it well. Denies any pain.
Plan
PT/OT to increase independence with ADLs, improve balance, coordination, endurance, strength, mobility, community reintegration, decreased burden of care on others and family education.
Debility s/p colectomy and end Ileostomy with acute cognitive impairment:Ampicillin IV 3g. PT/OT/Speech
HTN: continue medications, monitor closely
HLD: not on med.
Atrial fibrillation:� Diltiazem IV, metoprolol prn IV�. Eliquis when able���������������������������������������
Hypothyroidism: levothyroxine 75mcg
Bilateral lower extremity edema: Consider TEDS as able. Increased fluid will cause more force requirement to move lower extremities which requires more strength and increases fatigue.
Anemia: Likely multifactorial.� Hgb 9.6. Continue to monitor.
Psych: Psychology consult.� Monitor mood, adjust medications as needed.
Skin: monitor for pressure sores/rashes/lesions.
Pain: acetaminophen or hydromorphone IV as needed.
CHELSEA: Bun 22, creatinine 0.5 - Improved. Monitor
Bowel: colostomy
Bladder: Time void, PVRs, PRN straight cath.Keith removed.
GI Prophylaxis: Pantoprazole Will need to be converted to PO when able
DVT Prophylaxis: Lovenox to be switched to Eliquis when able
Pulmonary: Incentive spirometry
Safety: Continue to reinforce assistance with all transfers.
Code Status:� Full code
Dispo (date/plan/equipment needs): Home with family care.� Social history reviewed.
Functional and Medical Goals: Modified Independent with ADL�s, ambulation, transfers
Summary of recommendations:
- Discharge Destination: Patient s/p colectomy and end ileostomy with debility, Afib with rapid heart rate and some acute cognition changes with current status of ambulation of 4 feet to bedside chair with rolling walker, toileting dependent, lower
extremities care dependent, transfers at min assist, would benefit from acute inpatient rehabilitation for PT/OT to increase independence with ADLs, improve balance, coordination, endurance, strength, mobility, and community reintegration.
Debility s/p colectomy and end Ileostomy with Afib with rapid ventricular response and acute cognitive impairment:Ampicillin IV 3g. PT/OT/Speech.
Pain: acetaminophen or hydromorphone IV as needed. Patient needs to be stable on PO pain medicine prior to transfer. Off IV .
Bilateral lower extremity edema: Consider TEDS as able. Increased fluid will cause more force requirement to move lower extremities which requires more strength and increases fatigue.
DVT Prophylaxis: Lovenox to be switched to Eliquis when able
Bladder: Time void, PVRs, PRN straight cath.Keith removed.
GI Prophylaxis: Pantoprazole Will need to be converted to PO when able.
Pulmonary: Incentive spirometry
Atrial fibrillation:� Diltiazem IV, metoprolol prn IV�. Eliquis when able���������������������������������������
Thank you for allowing me to care for your patient. Please contact me with any questions or concerns.
Patient seen and examined by me today. Discussed with Judith Arriola PA-C and agree wt note, examination and plan as outlined above. Patient with deconditioning and debility due to ischemic bowel and weakness/fatigue due to the surgery, poor PO
intake, new onset atrial fibrillation with RVR. Still with increased WBC but now on Unasyn.
Will be a good acute rehabilitation candidate once more medically stable to improve strength, endurance, ambulation, and mobility to get back to previous level of independence. Lives with in 1 story home with 2 steps to enter, and was
previously independent with all functional tasks without any use of a cane or assistive device.
--- NOTE | 2023-12-31 15:26 | CM ---
Patient who is s/p colectomy with ileostomy. O2 2L. NGT d/c'ed. Clear liquids. Receiving IV Solucortef, IV Ofirmev, Cardizem gtt. Plan echo. [facility] nurse - ileostomy teaching. PT/OT recommending acute rehab. Physiatry Consult pending.
Spoke with patient; she is hoping she can go home with instead of going to [place]. She is aware that her daughter Theresa was hoping she would go to [place]. Provided update that Dr Lundy from [place] will see her.
Plan follow up after seen by Physiatry.
--- NOTE | 2023-12-31 15:37 | PTCARENOTE ---
Patient OOb for 3 hrs . Torodol not well recieved by pt as it stung her iv site
--- NOTE | 2023-12-31 16:47 | WOUNDNOTE ---
WOC RN note: t/teto Hatch, spoke with Yohana and ordered patient a Holden ostomy secure starter kit.
--- NOTE | 2023-12-31 17:05 | PTCARENOTE ---
Pt voided post barros dc, also tolerating clear liqs.
[2023-12-31] MEDS: LOVENOX 40 MG SC (17:37)
[2023-12-31] MEDS: TORADOL IV (17:44)
[2024-01-01] VITALS (12 sets, daily range): BP systolic 111–139; BP diastolic 69–84; PULSE 74; O2SAT 96; BMI 21.4
[2024-01-01] MEDS: TORADOL IV ×2 (01:00→07:25)
[2024-01-01] MEDS: UNASYN IV ×5 (01:03→23:54)
[2024-01-01] MEDS: CARDIZEM 125 IV ×2 (01:37→17:10)
[2024-01-01] MEDS: OFIRMEV 100 IV (04:48)
--- NOTE | 2024-01-01 04:57 | PTCARENOTE ---
Received Pt from previous shift. Pt on 10 mg/hr. Pts HR stable overnight, 80-100's. Pressures stable, last pressure 135/76 (94). Pt sat dropped down to 88% while sleeping, pt placed on 2L NC02 and sat maintained @ 95% since. Pt respirations
unlabored, no SOB, lungs slightly diminished at the bases. Pt alert to person, place, and time forgetful at times. Pt asked same questions multiple times. Pt pleasant and agreeable to care. pt voided 2x large overnight in the BP urine was slightly
yellow, free of odor. Pts ileostomy putting out, emptied 1x overnight so far for 150 ml. pts midline incision dressing clean dry and intact. Pt complaisn of no stomach pain, slightly sore on palpation, states Tylenol is helping. Pt males needs
known, call shah in reach. No acute changes overnight. Please see nursing shift assessment for full head to toe.
[2024-01-01 06:47] LABS: Hematocrit 28.9 % (37.0-47.0); Hemoglobin 10.2 g/dL (12.0-16.0); Mean Corp Hgb Conc. 35.3 g/dL (33.0-37.0); Mean Corpuscular Volume 93.5 fL (81.0-99.0); Mean Platelet Volume 9.8 fL (7.4-10.4); Platelet Count 326 10^3/uL (130-400); Red Blood Cell Count 3.09 10^6/uL (4.20-5.40); Red Cell Dist. Width 17.1 % (11.5-14.5); White Blood Cell Count 15.8 10^3/uL (4.8-10.8)
[2024-01-01 07:22] LABS: ALT (SGPT) 35 U/L (0-35); AST (SGOT) 49 U/L (14-36); Albumin 2.6 g/dl (3.5-5.0); Alkaline Phosphatase 178 U/L (38-126); Blood Urea Nitrogen 20 mg/dl (7-17); Carbon Dioxide 30 mmol/L (22-30); Chloride 97 mmol/L (98-107); Estimated Creatinine Clearance 58 ml/min; Glucose 133 mg/dl (70-99); Magnesium 1.9 mg/dl (1.6-2.3); Phosphorus 2.2 mg/dl (2.5-4.5); Potassium 3.1 mmol/L (3.5-5.1); Sodium 130 mmol/L (135-145); Total Bilirubin 1.8 mg/dl (0.2-1.3); Total Protein 4.8 g/dl (6.3-8.2); eGFR > 60.00
--- NOTE | 2024-01-01 07:24 | W.PN.HOSP.TC ---
Addendum entered and electronically signed by Kartik Valero MD 01/01/24 07:35:
Will await further input from cardiology as to the status of the diltiazem drip and transition to oral
Will reduce hydrocortisone to 25 mg every 12 and then continue taper to 48 from dosage of prednisone every 48 hours 10 mg
Original Note:
Today's Communication/Plan
-
Now that on clear liquids
Will transition to some of her oral medications including levothyroxine, gabapentin, apixaban and discontinue Lovenox DVT prophylaxis
Will wait 1 more day prior to changing over PPI to oral
And acetaminophen only for pain no other agents
Increase activity defer to surgery for further advancement diet as tolerated
Assessment / Plan
Assessment / Plan
Physical Exam
General: Not in acute distress
HEENT: Normocephalic and Atraumatic. NG tube.
Respiratory: Equal air entry bilaterally, anteriorly.
Cardiac: S1/S2 and Regular Rhythm
GI: Soft, Nontender, Minimal to Mild Distension. Ileostomy in place.
Musculoskeletal: No Cyanosis and No Edema
Skin: Warm and Dry
Neuro: Awake, Alert and AAO x 3
Psych: Calm and Intact Judgment/Insight

COLONOSCOPY DECEMBER 27, 2023 PER MEDICAL RADIATION THERAPIST'S REPORT:
Impression: - Preparation of the colon was poor.
- Hemorrhoids found on perianal exam.
- Stool in the rectum, in the recto-sigmoid colon and
in the sigmoid colon.
- Mucosal ulceration, black dusky necrotic mucosa in
the sigmoid colon concerning for necrosis/ischemia.
The colorectal surgeon was present to visualize the
mucosa and the case was discussed.
- No specimens collected.
Recommendation: - Manage as per colorectal surgery, likely bowel
resection now.

Assessment/Plan
Enterococcal Bacteremia
-Possible from the gastrointestinal tract
-Continue Meropenem
-Continue to follow cultures/microbiology studies
-Appreciate ID evaluation and recommendations
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
-On presentation, patient had not had a bowel movement in 8 days and also indicated that she had also had not taken anything to help alleviate her constipation
-Patient had also been on Tramadol outpatient
-ER provider disimpacted some stools and provided enema -- however after enema was given, no bowel movement resulted, therefore CT imaging was ordered
-CT showed significant amount of constipation and possible colitis (in the setting of bowel wall thickening), among other findings
-Consulted GI, recommendations appreciated
-Status post colonoscopy on December 27, 2023 with findings of significant amounts of stool, mucosal ulceration, black dusky necrotic mucosa in the sigmoid colon concerning for necrosis/ischemia.
-Patient therefore needed a subtotal colectomy with ileostomy on December 28, 2023
-Avoid narcotic pain medications as this can make the patient confused, as per patient's daughter
-Scheduled Ofirmev (IV Tyllenol in control -- monitor AST and ALT while on this
-Avoid NSAIDs due to anemia and very recent surgery
-PT/OT/seen by physiatry service and deemed appropriate for acute rehab at [facility] /will need to transition to oral medications e
- NG tube now removed transition to oral medications/restart apixaban
-Encourage out of bed as able, physical therapy as able
Atrial Fibrillation with Rapid Ventricular Response
Tele with 3-5 second conversion pauses earlier this admission./Converted yet again this morning still lowered dose of diltiazem drip
Cardiology following
Weight Increased
-Appeared to be in sinus rhythm after AFib RVR but then went back to SR then back to AFib RVR
-Was on Cardizem Drip-->then off-->then back on Cardizem Drip back in sinus rhythm again this morning
-Outpatient PO cardizem is on hold for reasons outlined above
-Can use as needed IV Lopressor for now for HR greater than 100 bpm (when Cardizem drip is off)
-Cardiology consulted, recommendations appreciated
-Lasix on December 30, 2023 for weight gain, continue to monitor for prn Lasix on a daily basis
-Echocardiogram for Sunday December 31, 2023/mild tricuspid regurg EF of 65 to 70% no change in comparison to 07/02/2019
Atrial Fibrillation
History of Cardiac Ablation
History of 3 to 5-second conversion pauses.
-Sees spray gunner Dr. Ku as an outpatient
-Monitor on telemetry
-Restarting apixaban today December 31
-Continue home Diltiazem when able
Left Lower Leg (Calf Area) Focal Pain and Swelling
-Left lower leg with in left calf area with pain and swelling
-DVT ultrasound performed on December 29, 2023 showed no Deep Vein Thrombosis
-X-Ray: no acute findings, with unremarkable soft tissue as per radiologist's report
-If focal pain continues, then can consider orthopedics consult and MRI to rule out a possible infection or occult bony pathology
-Continue regular neurovascular checks Q4H in all extremities
Hyponatremia
Metabolic Acidosis
Hypocalcemia
-Patient had not had anything to eat or drink for the 2-3 days prior to presentation
-Capping IV fluids
-IV prn Calcium
-Consulted nephrology, recommendations appreciated
Hypocalcemia
-Nephrology consulted, recommendations appreciated
-IV calcium
Hyperkalemia - RESOLVED
-Monitor BMP
Hypokalemia
-Monitor BMP daily
-Replacements have been ordered
Hypertension
-Continue home Diltiazem when able
Hyperlipidemia
-Continue home Atorvastatin when able
Hypothyroidism
-Continue home Levothyroxine when able
Sciatica
History of L5 Spinal Stenosis
History of Right Femoral Neck Fracture status post right hip hemiarthroplasty
-Continue home Gabapentin when able
History of nosebleed
History of Diverticulitis
History of Elevated Hepatic Transaminases
-Monitor CMP lab-work, especially in the setting of Ofirmev (IV Tylenol use)
History of Trigeminal Neuralgia
History of Appendectomy
On CT Imaging in November 2023 Admission:
1) 'Moderate size hiatal hernia with small volume fluid incompletely included on this study within the distal thoracic esophagus.'
2) 'Stable partial T11 vertebral compression fracture.'
3) 'Prior appendectomy.'
4) 'Right hip arthroplasty with prominent beam hardening artifact.'
Primary contact is daughter Theresa, who is [facility] SW here (phone: [phone])
On December 28, 2023, I spoke to patient's daughter Theresa. All questions and concerns were answered.
DVT Prophylaxis: Lovenox Resumed starting December 30, 2023. Transition to apixaban December 31 also Sequential Compression Devices.
Code Status: Full Code
Anticipated Discharge: 24 - 48 hours
Subjective/Interval History
-
Date of Service: January 01, 2024
Continue to go to work comfortable requires oxygen during nighttime hours but none during the day reverted to sinus rhythm this morning and diltiazem drip reduced tolerated clear liquids last night.
Objective Data
-
Labs:
Laboratory Results
01/01/24
06:15
WBC 15.8 H
Hgb 10.2 L
Hct 28.9 L
Plt Count 326
Sodium 130 L
Potassium 3.1 L
Chloride 97 L
Carbon Dioxide 30
BUN 20 H
Creatinine 0.6
Glucose 133 H
Calcium 8.0 L
Total Bilirubin 1.8 H
AST 49 H
ALT 35
Alkaline Phosphatase 178 H
Vital Signs:
Vital Signs
Temp Pulse Resp BP Pulse Ox
97.8 F 85 16 135/76 98
01/01/24 04:07 01/01/24 04:00 01/01/24 04:00 01/01/24 04:00 01/01/24 04:00
I&O
12/31/23 01/01/24 01/02/24
06:59 06:59 06:59
Intake Total 615 / 615 720 / 720
Output Total 3675 / 3675 150 / 150
Balance -3060 / -3060 570 / 570
Review of Systems
-
History Source: Patient
Constitutional: Denies Fever
EENT: Reports No Symptoms Reported
Respiratory: Reports No Symptoms
Cardiac: Reports No Symptoms
Abdomen/GI: Reports No Symptoms
Physical Exam
-
General: Well Developed
HEENT: Normocephalic
Respiratory: Clear to Auscultation
Cardiac: Regular Rhythm and S1/S2 (Presently in sinus rhythm on monitor)
GI: Soft, Nontender, Nondistended and Ostomy (Some small liquid return)
Rectal: Brown
Neuro: Awake
Psych: Calm
Data Reviewed
-
Total Time Spent with Patient (in minutes): 56
Labs: Labs Reviewed by me (White count remains elevated 15.8 hemoglobin 10.2)
[2024-01-01 08:11] LABS: Absolute Neutrophils -Man Diff 12.3 10^3/uL (1.4-6.5); Band Neutrophils 6 % (0-3); Lymphocytes 11 % (20-51); Monocytes 7 % (2-9); Segmented Neutrophils 72 % (42-75)
[2024-01-01 08:12] LABS: Metamyelocytes 1 % (-); Myelocytes 3 % (-)
[2024-01-01 08:13] LABS: Normal RBC Morphology No; Ovalocytes FEW; Platelets Checked YES
[2024-01-01 08:15] LABS: Total Cells Counted 100
[2024-01-01] MEDS: NEURONTIN 300 MG PO (09:27)
[2024-01-01] MEDS: SOLU-CORTEF 25 MG IV ×2 (09:28→20:12)
[2024-01-01] MEDS: SYNTHROID 75 MCG PO (09:28)
[2024-01-01] MEDS: ELIQUIS 2.5 MG PO ×2 (09:28→20:11)
[2024-01-01] MEDS: NSS (PRESERVATIVE FREE) 10 ML IV (09:31)
[2024-01-01] MEDS: PROTONIX IV 40 MG IV (09:31)
--- NOTE | 2024-01-01 09:38 | W.PN.ID1 ---
Date of Service
Date of Service: January 01, 2024
Today's Communication
Continue antibiotics.
Assessment / Plan
Enterococcal bacteremia
Severe constipation.
Ischemic bowel
- s/p colon resection with ileostomy placement.
Leukocytosis
- Current elevation may be secondary to stress dose steroids
Renal insufficiency
Multiple drug allergies.
Atrial fibrillation
HTN
Dyslipidemia
Sciatica
Lumbar spinal stenosis
PMR
Trigeminal neuralgia
Recommendations:
Repeat blood cultures negative.
Intraoperative cultures no growth.
Patient tolerating Unasyn without issue. Will remove penicillin from allergy list.
Continue with Unasyn for today.
����������������������������������������������������������
Chief Complaint
-: Other (Ischemic bowel)
Subjective / Review of Systems
Patient seen and examined. Reports feeling improved today. Less abdominal discomfort.
Review of Systems: No Fever and No Chills
Vital Signs / Physical Exam
Vital Signs
Vital Signs
Temp Pulse Resp BP Pulse Ox
97.8 F 85 16 125/83 96
01/01/24 04:07 01/01/24 06:00 01/01/24 06:00 01/01/24 06:00 01/01/24 06:00
Physical Exam
Constitutional: No Acute Distress, Comfortable and Non-toxic
Eyes: No Conjunctival Hemorrhage and Sclera Anicteric
Cardiovascular: S1/S2; Negative S3/S4
Pulmonary: Non Labored
Gastrointestinal: Soft, Non Tender and Other (Ileostomy in place. Stoma pink.)
Extremities: Edema; Negative Cyanosis or Erythema
Skin: Warm and Dry; Negative Rash or Jaundice
Neurological: Awake and Alert
Psychological: Calm
Objective Data
Lab Data
Lab Results
01/01/24 06:15
01/01/24 06:15
Estimated Creat Clear 58 ml/min 01/01/24 06:15
Total Bilirubin 1.8 mg/dl (0.2-1.3) H 01/01/24 06:15
AST 49 U/L (14-36) H 01/01/24 06:15
ALT 35 U/L (0-35) 01/01/24 06:15
Alkaline Phosphatase 178 U/L (38-126) H 01/01/24 06:15
Most recent labs reviewed.
Micro Results:
12/28/23 06:30 Blood Culture - Preliminary
Blood/Venous No Growth in 4 days- Final report to follow
12/26/23 21:21 Blood Culture - Final
Blood/Venous No Growth - Final Report
12/27/23 20:06 Anaerobic Culture - Preliminary
Abdomen NO ANAEROBES ISOLATED
12/28/23 10:34 Blood Culture - Preliminary
Blood/Venous No Growth in 72 hours- Final report to follow
12/27/23 20:06 Wound Culture - Preliminary
Abdomen No growth
Gram Stain - Preliminary
12/26/23 20:10 Blood Culture - Final
Blood/Venous Enterococcus faecalis
Gram Stain - Final
Imaging:
12/26/2023 CT abdomen/pelvis: Sigmoid diverticulosis noted but study limited secondary to beam hardening artifact and lack of oral contrast. There is marked large volume of widespread colonic stool. Several areas of thickening of the wall of the
bowel with colitis being a consideration. No intestinal obstruction or free air noted. Please see full dictation for additional detail.
--- NOTE | 2024-01-01 10:56 | W.PN.CARDCBS ---
Today's Communication / Plan
-
Restart diltiazem 120 mg CD daily.
Can stop drip once taking oral medication
Restart Eliquis 2.5 mg p.o. twice daily. Hemoglobin stable
Weight is improving. Can use Lasix as needed. She received 1 dose of Lasix 12/29
Impression / Plan
-
PCP: Dr. David Valdez
Cardiology: Dr. Ku
Impression:
Presented with abdominal pain
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
Enterococcal bacteremia
Paroxysmal atrial fibrillation w/ RVR
spontaneously converted to SR 12/29/23
Typical atrial flutter
s/p PVI, CTI flutter ablation, 08/25/19
Chronic Eliquis anticoagulation
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
HTN
HLD
GERD
Hypothyroidism
Arthritis
FARIDA 08/19/2019: EF 60 to 65%, mild MR
Plan:
She is back in sinus rhythm today. Will attempt to give Cardizem 120 p.o. daily. Continue IV drip until she is clearly tolerating oral medication.
Restart Eliquis. Hemoglobin stable at 10.2.
Continue postoperative care. Weight is improving. She received Lasix x 1 12/30/23.
At present we should probably continue a strategy of rate control only and should not attempt cardioversion with amiodarone or DC cardioversion given that Eliquis has been interrupted.
HPI: Diya is an 83-year-old female with past medical history of paroxysmal atrial fibrillation, typical atrial flutter status post PVI and CTI flutter ablation 08/25/2019, sick sinus syndrome, hypertension, hyperlipidemia, GERD, and
hypothyroidism. She presented to ER with nausea, abdominal pain, and constipation. She initially was felt to have colitis, however had worsening pain and was taken to the OR where she was found to have diffuse necrotic colon and underwent
colectomy with ileostomy. She has been recovering and this afternoon on 12/28/2023, she went into rapid atrial fibrillation. She has history of paroxysmal atrial fibrillation and typical atrial flutter with PVI in 2019. She has had no recurrences
of atrial fibrillation noted since her PVI. Cardiology consulted for rapid atrial fibrillation.
Progress Note - Administrative Executive
Subjective
Date of Service: January 01, 2024
Back in sinus rhythm. Denies chest pains.
Objective
Labs:
01/01/24 06:15
01/01/24 06:15
Labs
Hgb 10.2 g/dL (12.0-16.0) L 01/01/24 06:15
Hct 28.9 % (37.0-47.0) L 01/01/24 06:15
Plt Count 326 10^3/uL (130-400) 01/01/24 06:15
Sodium 130 mmol/L (135-145) L 01/01/24 06:15
Potassium 3.1 mmol/L (3.5-5.1) L 01/01/24 06:15
BUN 20 mg/dl (7-17) H 01/01/24 06:15
Creatinine 0.6 mg/dL (0.6-1.0) 01/01/24 06:15
Glucose 133 mg/dl (70-99) H 01/01/24 06:15
Vital Signs and I&O:
Vital Signs
Temp Pulse Resp BP Pulse Ox
97.8 F 85 16 125/83 94
01/01/24 04:07 01/01/24 06:00 01/01/24 06:00 01/01/24 06:00 01/01/24 09:49
Vital Signs
Temp Pulse Resp BP Pulse Ox
97.8 F 85 16 125/83 94
01/01/24 04:07 01/01/24 06:00 01/01/24 06:00 01/01/24 06:00 01/01/24 09:49
Intake & Output
12/30/23 12/31/23 01/01/24 01/02/24
06:59 06:59 06:59 06:59
Intake Total 1690 / 1690 615 / 615 720 / 720
Output Total 450 / 450 3675 / 3675 150 / 150
Balance 1240 / 1240 -3060 / -3060 570 / 570
Physical Exam
Physical Exam
GEN: No distress, awake, Ox3
HEENT: supple, anicteric, mmm
LUNGS: scatt rhonchi
CV: Reg, S1/S2, 1/6 syst LSB, no gallop
ABD: soft, BS+, incisional tend
EXT: No edema
NEURO: Gross non-focal
SKIN: No rash
--- NOTE | 2024-01-01 11:42 | W.PN.NEPH.PH ---
Today's Communication / Plan
-
add salt tab, neurta phos, po kcl
Assessment/Plan
-
Assessment:
Enterococcal bacteremia
Severe constipation.
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
Leukocytosis
Hyponatremia
Hypocalcemia
Metabolic acidosis
Atrial fibrillation
HTN
Dyslipidemia
Plan:
hyponatremia decreasing to 130, add salt tab
hypokalemia persists, replace po
mild hypophosphatemia-add neurta phos
[place] is better and corrected in normal range
prn lasix
wean steroids
-
-
Date of Service: January 01, 2024
CC / HPI / ROS
-
Chief Complaint:
acidosis
History of Present Illness:
BP stable, remains in afib rate controlled
Na low at 130
K low at 3.1
tolerating liquid diet
wt is decreasing
Review of Systems:
no CP/SOB at rest
ostomy liquid stool
Labs
-
Labs:
WBC 15.8 10^3/uL (4.8-10.8) H 01/01/24 06:15
RBC 3.09 10^6/uL (4.20-5.40) L 01/01/24 06:15
Hgb 10.2 g/dL (12.0-16.0) L 01/01/24 06:15
Hct 28.9 % (37.0-47.0) L 01/01/24 06:15
Plt Count 326 10^3/uL (130-400) 01/01/24 06:15
Sodium 130 mmol/L (135-145) L 01/01/24 06:15
Potassium 3.1 mmol/L (3.5-5.1) L 01/01/24 06:15
Chloride 97 mmol/L (98-107) L 01/01/24 06:15
Carbon Dioxide 30 mmol/L (22-30) 01/01/24 06:15
BUN 20 mg/dl (7-17) H 01/01/24 06:15
Creatinine 0.6 mg/dL (0.6-1.0) 01/01/24 06:15
eGFR > 60.00 01/01/24 06:15
Glucose 133 mg/dl (70-99) H 01/01/24 06:15
Calcium 8.0 mg/dl (8.4-10.2) L 01/01/24 06:15
Phosphorus 2.2 mg/dl (2.5-4.5) L 01/01/24 06:15
Albumin 2.6 g/dl (3.5-5.0) L 01/01/24 06:15
Physical Exam
-
Vital Signs:
Vital Signs
Temp Pulse Resp BP Pulse Ox
97.8 F 85 16 125/83 94
01/01/24 04:07 01/01/24 06:00 01/01/24 06:00 01/01/24 06:00 01/01/24 09:49
Cardiovascular:: Regular rate and rhythm
Respiratory:: Bilateral: CTA
Lung Excursion:: Normal
Abdomen:: Nontender and Soft
Extremity Edema:: None: Bilateral: (trace)
Keith Catheter: No
[2024-01-01] MEDS: SODIUM CHLORIDE 0.5 GRAM PO ×2 (12:13→20:11)
[2024-01-01] MEDS: NEUTRA-PHOS POWDER PACKET 250 MG PO (12:13)
[2024-01-01] MEDS: KCL 40 MEQ PO (12:16)
--- NOTE | 2024-01-01 13:03 | W.PN.CRS1 ---
Today's Communication / Plan
-
full liquids
Assessment/Plan
-
83 yo female with h/o afib on Eliquis, HTN, hyperlipidemia, sciatica, diverticulitis, elevated LFT's, PMR on chronic steroids presenting with no BM for around 8 days and abdominal pain. CT with large volume colonic stool with colitis without
obstruction, free air or colonic pneumatosis. Decompressive colonoscopy was preformed by GI with evidence of ischemic bowel noted, taken to the OR for management.
POD #5 Exploratory laparotomy with total abdominal colectomy and end ileostomy.
Plan:
1. Pain control: doing well on po acetaminophen PRN.
2. Advance diet to fulls.
3. Wound RN for stoma teaching and dressing changes.
4. Okay to restart Eliquis today. Continue SCD's.
5. Increase activity, OOB as able. PT.
Subjective Data
Procedure
12/27/23 Exploratory laparotomy with total abdominal colectomy and end ileostomy.
Subjective Data
Date of Service: January 01, 2024
Patient states she is very hungry. She denies nausea or vomiting. She has no pain. She is sitting in a chair. Her ileostomy is producing.
Objective Data
-
Vital Signs
Temp Pulse Resp BP Pulse Ox
97.8 F 85 16 125/83 94
01/01/24 04:07 01/01/24 06:00 01/01/24 06:00 01/01/24 06:00 01/01/24 09:49
Intake & Output
12/31/23 01/01/24 01/02/24
06:59 06:59 06:59
Intake Total 615 / 615 720 / 720
Output Total 3675 / 3675 150 / 150
Balance -3060 / -3060 570 / 570
Intake:
Oral fluids 240 / 240
IV fluids (Total) 60 / 60
IV piggybacks 435 / 435 420 / 420
Amount instilled into GI Tube ( 180 / 180
Total)
[place] Sump 180 / 180
Output:
Liquid stool amount 75 / 75 150 / 150
Ileostomy 150 / 150
Rectum 75 / 75
Gastrointestinal tube output ( 300 / 300
Total)
[place] Sump 300 / 300
Urine, Keith 3300 / 3300
Other:
Number of approximated LARGE 1
amounts of urine
Lab Results
01/01/24 06:15
01/01/24 06:15
Physical Exam
-
General: No Acute Distress and AOx3
Abdomen: Soft, Non Distended, Non Tender and Other (ileostomy warm and pink with function)
Skin: Warm and Dry
[2024-01-01] MEDS: TYLENOL 650 MG PO ×2 (13:13→20:11)
--- NOTE | 2024-01-01 14:14 | PTCARENOTE ---
Pt presents as assessed. Aox3. NSR with PAC's on tele monitor. Sating mid 90's on RA. Tolerating full liquid diet. Midline incision with dressing C/D/I. Stoma red and budded with small stool output. OOB to chair with PT. Cardizem continues to
infuse- see intervention. Medicated with PRN Tylenol with good effect. Able to make needs known, call shah within reach. Family at bedside- updated on plan of care.
[2024-01-01] MEDS: KCL 20 MEQ PO (20:12)
--- NOTE | 2024-01-01 22:52 | PTCARENOTE ---
Received pt at change of shift. Ximena gtt renewed by RAPHAEL. Pt was OOB in chair during shift change but was eager to get back into bed. Able to assist x1 with RW. Pt states her legs just 'don't want to work'. Educated pt on the need for
exercising them while sitting to maintain strength and to walk when able. Pt able to take all night medications. C/o some pain. Administered PRN Tylenol (see MAR). Pt resting in bed with call shah in reach.
[2024-01-02] VITALS (13 sets, daily range): BP systolic 95–149; BP diastolic 64–91; PULSE 82; BMI 22.7
[2024-01-02] MEDS: SYNTHROID 75 MCG PO (05:34)
[2024-01-02] MEDS: UNASYN IV ×4 (05:34→23:49)
[2024-01-02 06:41] LABS: Hematocrit 27.4 % (37.0-47.0); Hemoglobin 9.9 g/dL (12.0-16.0); Mean Corp Hgb Conc. 36.1 g/dL (33.0-37.0); Mean Corpuscular Hgb 33.6 pg (27.0-31.0); Mean Corpuscular Volume 92.9 fL (81.0-99.0); Mean Platelet Volume 9.8 fL (7.4-10.4); Nucleated Red Blood Cells % 0.3 %; Platelet Count 299 10^3/uL (130-400); Red Blood Cell Count 2.95 10^6/uL (4.20-5.40); Red Cell Dist. Width 17.1 % (11.5-14.5); White Blood Cell Count 19.5 10^3/uL (4.8-10.8)
[2024-01-02 06:56] LABS: ALT (SGPT) 36 U/L (0-35); AST (SGOT) 54 U/L (14-36); Albumin 2.5 g/dl (3.5-5.0); Alkaline Phosphatase 174 U/L (38-126); Blood Urea Nitrogen 23 mg/dl (7-17); Calcium 8.1 mg/dl (8.4-10.2); Carbon Dioxide 28 mmol/L (22-30); Chloride 99 mmol/L (98-107); Estimated Creatinine Clearance 58 ml/min; Glucose 103 mg/dl (70-99); Magnesium 1.7 mg/dl (1.6-2.3); Phosphorus 2.1 mg/dl (2.5-4.5); Potassium 3.4 mmol/L (3.5-5.1); Sodium 130 mmol/L (135-145); Total Bilirubin 1.2 mg/dl (0.2-1.3); Total Protein 4.8 g/dl (6.3-8.2); eGFR > 60.00
--- NOTE | 2024-01-02 07:10 | W.PN.HOSP.TC ---
Addendum entered and electronically signed by Kratik Valero MD 01/02/24 12:50:
Enterococcal bacteremia only no sepsis present on admission
Acute metabolic encephalopathy possibly in relation to narcotics
Original Note:
Today's Communication/Plan
-
Advance diet to low residue
To start diltiazem CD120 today discontinue IV/if can remain in sinus rhythm okay for discharge to [facility]
D/C IV hydrocortisone/changed to prednisone 10 mg daily for now
Changed to oral PPI/other medications already changed to oral yesterday
Assessment / Plan
Assessment / Plan
Physical Exam
General: Not in acute distress
HEENT: Normocephalic and Atraumatic. NG tube.
Respiratory: Equal air entry bilaterally, anteriorly.
Cardiac: S1/S2 and Regular Rhythm
GI: Soft, Nontender, Minimal to Mild Distension. Ileostomy in place.
Musculoskeletal: No Cyanosis and No Edema
Skin: Warm and Dry
Neuro: Awake, Alert and AAO x 3
Psych: Calm and Intact Judgment/Insight

COLONOSCOPY DECEMBER 27, 2023 PER SWIMMING PROFESSOR'S REPORT:
Impression: - Preparation of the colon was poor.
- Hemorrhoids found on perianal exam.
- Stool in the rectum, in the recto-sigmoid colon and
in the sigmoid colon.
- Mucosal ulceration, black dusky necrotic mucosa in
the sigmoid colon concerning for necrosis/ischemia.
The colorectal surgeon was present to visualize the
mucosa and the case was discussed.
- No specimens collected.
Recommendation: - Manage as per colorectal surgery, likely bowel
resection now.

Assessment/Plan
Enterococcal Bacteremia
-Continue on Unasyn/ID following
-Follow-up blood cultures negative
-Possible from the gastrointestinal tract
-Continue to follow cultures/microbiology studies
-Continued leukocytosis now presumed in relation to her ongoing IV steroids which are being tapered to prednisone had been on every 48 hour schedule as outpatient will start on 10 mg daily for the next 2 days then transition to every 48
-Appreciate ID evaluation and recommendations
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
-On presentation, patient had not had a bowel movement in 8 days and also indicated that she had also had not taken anything to help alleviate her constipation
-Patient had also been on Tramadol outpatient
-ER provider disimpacted some stools and provided enema -- however after enema was given, no bowel movement resulted, therefore CT imaging was ordered
-CT showed significant amount of constipation and possible colitis (in the setting of bowel wall thickening), among other findings
-Consulted GI, recommendations appreciated
-Status post colonoscopy on December 27, 2023 with findings of significant amounts of stool, mucosal ulceration, black dusky necrotic mucosa in the sigmoid colon concerning for necrosis/ischemia.
-Patient therefore needed a subtotal colectomy with ileostomy on December 28, 2023
-Avoid narcotic pain medications as this can make the patient confused, as per patient's daughter
-Scheduled Ofirmev (IV Tyllenol in control -- monitor AST and ALT while on this
-Avoid NSAIDs due to anemia and very recent surgery
-PT/OT/seen by physiatry service and deemed appropriate for acute rehab at [facility] /will need to transition to oral medications e
- NG tube now removed transition to oral medications/restart apixaban
-Encourage out of bed as able, physical therapy as able
Atrial Fibrillation with Rapid Ventricular Response
Tele with 3-5 second conversion pauses earlier this admission./Converted yet again this morning still lowered dose of diltiazem drip
Cardiology following
Weight Increased
-Appeared to be in sinus rhythm after AFib RVR but then went back to SR then back to AFib RVR
-Was on Cardizem Drip-->then off-->then back on Cardizem Drip back in sinus rhythm again this morning/transition to oral diltiazem CD1 120 mg this morning
-Outpatient PO cardizem is on hold for reasons outlined above
-Can use as needed IV Lopressor for now for HR greater than 100 bpm (when Cardizem drip is off)
-Cardiology consulted, recommendations appreciated
-Lasix on December 30, 2023 for weight gain, continue to monitor for prn Lasix on a daily basis
-Echocardiogram for Sunday December 31, 2023/mild tricuspid regurg EF of 65 to 70% no change in comparison to 07/02/2019
Atrial Fibrillation
History of Cardiac Ablation
History of 3 to 5-second conversion pauses.
-Sees clinical support associate Dr. Ku as an outpatient
-Monitor on telemetry
-Restarting apixaban today December 31
-Continue home Diltiazem when able
Left Lower Leg (Calf Area) Focal Pain and Swelling
-Left lower leg with in left calf area with pain and swelling
-DVT ultrasound performed on December 29, 2023 showed no Deep Vein Thrombosis
-X-Ray: no acute findings, with unremarkable soft tissue as per radiologist's report
-If focal pain continues, then can consider orthopedics consult and MRI to rule out a possible infection or occult bony pathology
-Continue regular neurovascular checks Q4H in all extremities
Hyponatremia
Metabolic Acidosis
Hypocalcemia
-Patient had not had anything to eat or drink for the 2-3 days prior to presentation
-Capping IV fluids
-IV prn Calcium
-Consulted nephrology, recommendations appreciated
Hypocalcemia
-Nephrology consulted, recommendations appreciated
-IV calcium
Hyperkalemia - RESOLVED
-Monitor BMP
Hypokalemia
-Monitor BMP daily
-Replacements have been ordered
Hypertension
-Continue home Diltiazem when able
Hyperlipidemia
-Continue home Atorvastatin when able
Hypothyroidism
-Continue home Levothyroxine when able
Sciatica
History of L5 Spinal Stenosis
History of Right Femoral Neck Fracture status post right hip hemiarthroplasty
-Continue home Gabapentin when able
History of nosebleed
History of Diverticulitis
History of Elevated Hepatic Transaminases
-Monitor CMP lab-work, especially in the setting of Ofirmev (IV Tylenol use)
History of Trigeminal Neuralgia
History of Appendectomy
On CT Imaging in November 2023 Admission:
1) 'Moderate size hiatal hernia with small volume fluid incompletely included on this study within the distal thoracic esophagus.'
2) 'Stable partial T11 vertebral compression fracture.'
3) 'Prior appendectomy.'
4) 'Right hip arthroplasty with prominent beam hardening artifact.'
Primary contact is daughter Theresa, who is [facility] here (phone: [phone])
On December 28, 2023, I spoke to patient's daughter Theresa. All questions and concerns were answered.
DVT Prophylaxis: Lovenox Resumed starting December 30, 2023. Transition to apixaban December 31 also Sequential Compression Devices.
Code Status: Full Code
Anticipated Discharge: Within 24 hours
Subjective/Interval History
-
Date of Service: January 02, 2024
Having trouble swallowing potassium('Horse Pills ' ) otherwise tolerated full liquids without issue
Objective Data
-
Labs:
Laboratory Results
01/02/24
05:54
WBC 19.5 H
Hgb 9.9 L
Hct 27.4 L
Plt Count 299
Sodium 130 L
Potassium 3.4 L
Chloride 99
Carbon Dioxide 28
BUN 23 H
Creatinine 0.5 L
Glucose 103 H
Calcium 8.1 L
Total Bilirubin 1.2
AST 54 H
ALT 36 H
Alkaline Phosphatase 174 H
Vital Signs:
Vital Signs
Temp Pulse Resp BP Pulse Ox
97.8 F 75 26 137/91 90
01/02/24 04:26 01/02/24 06:00 01/02/24 06:00 01/02/24 06:00 01/02/24 06:00
I&O
01/01/24 01/02/24 01/03/24
06:59 06:59 06:59
Intake Total 720 / 720
Output Total 150 / 150 100 / 100
Balance 570 / 570 -100 / -100
Review of Systems
-
History Source: Patient and Family
Constitutional: Reports No Symptoms
Cardiac: Reports No Symptoms
Musculoskeletal: Reports No Symptoms
Physical Exam
-
General: Other (Looks underweight)
HEENT: Normocephalic
Respiratory: Clear to Auscultation
Cardiac: Regular Rhythm and S1/S2 (Presently sinus rhythm still on diltiazem this morning IV)
GI: Soft and Ostomy
Neuro: Awake
Psych: Calm
Data Reviewed
-
Total Time Spent with Patient (in minutes): 56
Labs: Labs Reviewed by me (Leukocytosis continues presumed in relation to steroids still on IV)
[2024-01-02] MEDS: NSS (PRESERVATIVE FREE) IV (07:44)
--- NOTE | 2024-01-02 08:02 | PTCARENOTE ---
Pt received from production shift supervisor. Becoming increasingly agitated. Restraints in place. Desatting to the 80's on HFNC. NRB at 15L applied on top, sats recovered to low to mid 90's. HR 110-140's. Dr. New notified via TT. PRN EDWIN Bueno administered
as ordered- see NOV.
[2024-01-02 08:43] LABS: Absolute Neutrophils -Man Diff 16.3 10^3/uL (1.4-6.5); Band Neutrophils 2 % (0-3); Eosinophils 2 % (0-6); Lymphocytes 9 % (20-51); Metamyelocytes 1 % (-); Monocytes 2 % (2-9); Myelocytes 2 % (-); Segmented Neutrophils 82 % (42-75)
[2024-01-02 08:44] LABS: Normal RBC Morphology No; Platelets Checked Yes
[2024-01-02 08:45] LABS: Ovalocytes 1+; Polychromasia 1+; Total Cells Counted 100
--- NOTE | 2024-01-02 09:01 | CM ---
Late Entry for 01/01/24:
Patient who is s/p colectomy with ileostomy.
Spoke with [facility]; they can accept the patient.
Phone call to Theresa, daughter; left message informing her patient accepted at [facility].
Plan [facility] when medically ready.
[2024-01-02] MEDS: TYLENOL 650 MG PO ×2 (09:18→18:10)
[2024-01-02] MEDS: SODIUM CHLORIDE 0.5 GRAM PO ×2 (09:19→20:09)
[2024-01-02] MEDS: PROTONIX 40 MG PO (09:19)
[2024-01-02] MEDS: NEUTRA-PHOS POWDER PACKET 250 MG PO (09:20)
[2024-01-02] MEDS: CARDIZEM CD 120 MG PO (09:20)
[2024-01-02] MEDS: ELIQUIS 2.5 MG PO ×2 (09:20→20:09)
[2024-01-02] MEDS: NEURONTIN PO ×2 (09:20→10:14)
--- NOTE | 2024-01-02 09:38 | W.PN.NEPH.PH ---
Today's Communication / Plan
-
observe
follow bmp
Assessment/Plan
-
Assessment:
Enterococcal bacteremia
Severe constipation.
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
Leukocytosis
Hyponatremia
Hypocalcemia
Metabolic acidosis
Atrial fibrillation
HTN
Dyslipidemia
Plan:
hyponatremia decreasing to 130, added salt tab December 31
hypokalemia persists, replace po
mild hypophosphatemia-maintain neutraphos
calcium is better and corrected in normal range
prn lasix
wean steroids
-
-
Date of Service: January 02, 2024
CC / HPI / ROS
-
Chief Complaint:
acidosis
History of Present Illness:
BP stable, remains in afib rate controlled
Na low at 130
K low at 3.1
tolerating liquid diet
wt is decreasing
Review of Systems:
no CP/SOB at rest
ostomy liquid stool
Labs
-
Labs:
WBC 19.5 10^3/uL (4.8-10.8) H 01/02/24 05:54
RBC 2.95 10^6/uL (4.20-5.40) L 01/02/24 05:54
Hgb 9.9 g/dL (12.0-16.0) L 01/02/24 05:54
Hct 27.4 % (37.0-47.0) L 01/02/24 05:54
Plt Count 299 10^3/uL (130-400) 01/02/24 05:54
Sodium 130 mmol/L (135-145) L 01/02/24 05:54
Potassium 3.4 mmol/L (3.5-5.1) L 01/02/24 05:54
Chloride 99 mmol/L (98-107) 01/02/24 05:54
Carbon Dioxide 28 mmol/L (22-30) 01/02/24 05:54
BUN 23 mg/dl (7-17) H 01/02/24 05:54
Creatinine 0.5 mg/dL (0.6-1.0) L 01/02/24 05:54
eGFR > 60.00 01/02/24 05:54
Glucose 103 mg/dl (70-99) H 01/02/24 05:54
Calcium 8.1 mg/dl (8.4-10.2) L 01/02/24 05:54
Phosphorus 2.1 mg/dl (2.5-4.5) L 01/02/24 05:54
Albumin 2.5 g/dl (3.5-5.0) L 01/02/24 05:54
Physical Exam
-
Vital Signs:
Vital Signs
Temp Pulse Resp BP Pulse Ox
97.8 F 75 26 137/91 90
01/02/24 04:26 01/02/24 06:00 01/02/24 06:00 01/02/24 06:00 01/02/24 06:00
Cardiovascular:: Regular rate and rhythm
Lung Excursion:: Normal
Abdomen:: Nontender and Soft
Extremity Edema:: None: Bilateral:
Keith Catheter: No
--- NOTE | 2024-01-02 10:00 | W.PN.ID1 ---
Date of Service
Date of Service: January 02, 2024
Today's Communication
Continue antibiotics. See below�
Assessment / Plan
Enterococcal bacteremia
- cleared as of 12/27
Severe constipation
Ischemic bowel
- s/p colon resection with ileostomy placement.
Leukocytosis
- Current elevation may be secondary to steroids
Renal insufficiency
Multiple drug allergies.
Atrial fibrillation
HTN
Dyslipidemia
Sciatica
Lumbar spinal stenosis
PMR
Trigeminal neuralgia
Recommendations:
Repeat blood cultures negative 12/27 onward
Intraoperative cultures no growth.
Patient tolerating Unasyn without issue.
Given enterococcal bacteremia, would complete a 2 week course (from first negative blood culture) of IV abx (through 01/11/24)
����������������������������������������������������������
Chief Complaint
-: Other (Ischemic bowel)
Subjective / Review of Systems
Patient seen and examined. Reports ongoing abdominal discomfort, but otherwise feels well.
Review of Systems: No Fever and No Chills
Vital Signs / Physical Exam
Vital Signs
Vital Signs
Temp Pulse Resp BP Pulse Ox
97.8 F 75 26 137/91 90
01/02/24 04:26 01/02/24 06:00 01/02/24 06:00 01/02/24 06:00 01/02/24 06:00
Physical Exam
Constitutional: No Acute Distress, Comfortable, Chronically Ill, Non-toxic and Other (Overall appears brighter than on previous exams.)
Eyes: No Conjunctival Hemorrhage and Sclera Anicteric
Cardiovascular: S1/S2; Negative S3/S4
Pulmonary: Non Labored
Gastrointestinal: Soft, Tender, Non Distended, Normal Bowel Sounds, No Rebound and Other (Ostomy in place.)
Skin: Warm and Dry; Negative Rash or Jaundice
Neurological: Awake and Alert
Psychological: Calm
Objective Data
Lab Data
Lab Results
01/02/24 05:54
01/02/24 05:54
Estimated Creat Clear 58 ml/min 01/02/24 05:54
Total Bilirubin 1.2 mg/dl (0.2-1.3) 01/02/24 05:54
AST 54 U/L (14-36) H 01/02/24 05:54
ALT 36 U/L (0-35) H 01/02/24 05:54
Alkaline Phosphatase 174 U/L (38-126) H 01/02/24 05:54
Most recent labs reviewed.
Micro Results:
12/28/23 06:30 Blood Culture - Final
Blood/Venous No Growth - Final Report
12/28/23 10:34 Blood Culture - Preliminary
Blood/Venous No Growth in 4 days- Final report to follow
12/26/23 21:21 Blood Culture - Final
Blood/Venous No Growth - Final Report
12/27/23 20:06 Anaerobic Culture - Preliminary
Abdomen NO ANAEROBES ISOLATED
12/27/23 20:06 Wound Culture - Preliminary
Abdomen No growth
Gram Stain - Preliminary
12/26/23 20:10 Blood Culture - Final
Blood/Venous Enterococcus faecalis
Gram Stain - Final
Imaging:
12/26/2023 CT abdomen/pelvis: Sigmoid diverticulosis noted but study limited secondary to beam hardening artifact and lack of oral contrast. There is marked large volume of widespread colonic stool. Several areas of thickening of the wall of the
bowel with colitis being a consideration. No intestinal obstruction or free air noted. Please see full dictation for additional detail.
[2024-01-02] MEDS: NEURONTIN 300 MG PO (10:15)
--- NOTE | 2024-01-02 11:29 | W.PN.CRS1 ---
Today's Communication / Plan
-
low residue
repeat cbc in AM
jt removed
Assessment/Plan
-
83 yo female with h/o afib on Eliquis, HTN, hyperlipidemia, sciatica, diverticulitis, elevated LFT's, PMR on chronic steroids presenting with no BM for around 8 days and abdominal pain. CT with large volume colonic stool with colitis without
obstruction, free air or colonic pneumatosis. Decompressive colonoscopy was preformed by GI with evidence of ischemic bowel noted, taken to the OR for management.
POD #6 Exploratory laparotomy with total abdominal colectomy and end ileostomy.
Plan:
1. Pain control: doing well on po acetaminophen PRN.
2. Advance diet to low residue.
3. Wound RN for stoma teaching and dressing changes.
4. Eliquis has been started.
5. Increase activity, OOB as able. PT.
6. Wound dressing changed, jt removed.
7. Repeat CBC in AM given WBC 19.5.
8. Dispo: [facility] when medically ready.
Subjective Data
Procedure
12/27/23 Exploratory laparotomy with total abdominal colectomy and end ileostomy.
Subjective Data
Date of Service: January 02, 2024
Patient states she feels good. She has no nausea or vomiting. Her pain is controlled. She is urinating.
Objective Data
-
Vital Signs
Temp Pulse Resp BP Pulse Ox
97.9 F 75 26 137/91 90
01/02/24 07:55 01/02/24 06:00 01/02/24 06:00 01/02/24 06:00 01/02/24 06:00
Intake & Output
01/01/24 01/02/24 01/03/24
06:59 06:59 06:59
Intake Total 720 / 720 120 / 120
Output Total 150 / 150 100 / 100
Balance 570 / 570 -100 / -100 120 / 120
Intake:
Oral fluids 240 / 240 120 / 120
IV fluids (Total) 60 / 60
IV piggybacks 420 / 420
Output:
Liquid stool amount 150 / 150 100 / 100
Ileostomy 150 / 150 100 / 100
Other:
Number of approximated MODERATE 1 1
amounts of urine
Number of approximated LARGE 1
amounts of urine
How many times incontinent 1
MODERATE amount urine
Lab Results
01/02/24 05:54
01/02/24 05:54
Physical Exam
-
General: No Acute Distress and AOx3
Abdomen: Soft, Non Distended and Non Tender
Skin: Warm and Dry
Wound: Dressing Changed (jt removed)
--- NOTE | 2024-01-02 12:00 | CM ---
Patient who is s/p colectomy with ileostomy. Room air. Low residue diet. [facility] nurse - ileostomy teaching. IV Cardizem switched to PO. Receiving IV Abx. PT/OT recommending acute rehab. Physiatry Consult recommends acute rehab.
Per Dr Nuñez' note 01/02/24: Given enterococcal bacteremia, would complete a 2 week course (from first negative blood culture) of IV abx (through 01/11/24).
Spoke with [facility]; they can accept the patient tomorrow. She is aware of ileostomy supply needs and plan for IV Abx through 01/10.
Met with patient and Corbin; patient eager to go to [place] tomorrow. IMM completed. Told patient CM would update her daughter also.
Spoke with Theresa, ciaran; provided update that [facility] has accepted and the plan is for her mother to go there tomorrow. Daughter is pleased with the d/c plans. Sent message to Ayse [facility] nurse at Theresa's request, to request to meet with
ostomy nurse again tomorrow for teaching.
Plan [place] [facility] tomorrow.
[2024-01-02] MEDS: MYCOSTATIN ORAL SUSPENSION 5 ML PO ×3 (12:55→23:49)
--- NOTE | 2024-01-02 14:04 | PTCARENOTE ---
Pt presents as assessed. Aox2, forgetful to time. NSR with PAC's on tele monitor. Sating mid 90's on RA. Tolerating low res diet. Midline incision with dressing C/D/I. Stoma red and budded with stool output. OOB to chair with PT throughout the day.
Cardizem gtt stopped after PO administration. Medicated with PRN Tylenol with good effect. Able to make needs known, call shah within reach. Family at bedside- updated on plan of care.
--- NOTE | 2024-01-02 15:25 | W.PN.CARDCBS ---
Addendum entered and electronically signed by Ricardo Perez MD 01/02/24 16:34:
I saw and examined the patient.
The Tour Manager's note was reviewed and I agree with the note.
Comment:
GEN: No distress, awake, Ox3
HEENT: supple, anicteric, mmm
LUNGS: CTA, no wheezes/rales
CV: Reg, S1/S2, 1/6 syst LSB, no gallop
ABD: soft, BS+, NT/ND
EXT: No edema
NEURO: Gross non-focal
SKIN: No rash
Plan:
She remains in sinus rhythm. Continue oral Cardizem and Eliquis 2.5 mg p.o. twice daily.
Continue postoperative care.
Stable for discharge to rehab from cardiology standpoint
Original Note:
Today's Communication / Plan
-
Cont Cardizem CD PO and Eliquis 2.5 mg BID
Rate control only for now, not a candidate for rhythm control due to interruptions in Eliquis
Impression / Plan
-
PCP: Dr. David Valdez
Cardiology: Dr. Ku
Impression:
Presented with abdominal pain
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
Enterococcal bacteremia
Paroxysmal atrial fibrillation w/ RVR
spontaneously converted to SR 12/29/23, recurred with Afib 12/31/23 and then spontaneously converted to SR again 01/01/24
Typical atrial flutter
s/p PVI, CTI flutter ablation, 08/25/19
Chronic Eliquis anticoagulation
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
HTN
HLD
GERD
Hypothyroidism
Arthritis
FARIDA 08/19/2019: EF 60 to 65%, mild MR
Echo 12/31/23: EF 65-70%, mild conc LVH, no , mild TR with PAP 30-35 mmHg
Plan:
-Patient has had recurrent paroxysmal Afib this admission. Remains in SR 01/02/24.
-Outpatient dose of Eliquis 2.5 mg BID has been interrupted for surgery earlier this admission. Eliquis 2.5 mg BID resumed 01/01/24 AM and Hgb is stable at 9.9on 01/02/24
-Outpatient dose of Cardizem CD 120 mg daily was held, but restart since 01/02/24
-Plan is for ongoing rate control. Patient is not a candidate for rhythm control due to surgery and interruption of OAC.
-Recorded weights are up and down. Weight peaked at 129 lbs on 12/30/23. Patient was given Lasix 20 mg IV x 1 12/30/23 and weight is 127 lbs on 01/02/24. Patient was not taking a loop diuretic prior to admission
HPI: Diya is an 83-year-old female with past medical history of paroxysmal atrial fibrillation, typical atrial flutter status post PVI and CTI flutter ablation 08/25/2019, sick sinus syndrome, hypertension, hyperlipidemia, GERD, and
hypothyroidism. She presented to ER with nausea, abdominal pain, and constipation. She initially was felt to have colitis, however had worsening pain and was taken to the OR where she was found to have diffuse necrotic colon and underwent
colectomy with ileostomy. She has been recovering and this afternoon on 12/28/2023, she went into rapid atrial fibrillation. She has history of paroxysmal atrial fibrillation and typical atrial flutter with PVI in 2019. She has had no recurrences
of atrial fibrillation noted since her PVI. Cardiology consulted for rapid atrial fibrillation.
Progress Note - Strap [facility]er
Subjective
Date of Service: January 02, 2024
No chest pain or palpitations
Objective
Labs:
01/02/24 05:54
01/02/24 05:54
Labs
Hgb 9.9 g/dL (12.0-16.0) L 01/02/24 05:54
Hct 27.4 % (37.0-47.0) L 01/02/24 05:54
Plt Count 299 10^3/uL (130-400) 01/02/24 05:54
Sodium 130 mmol/L (135-145) L 01/02/24 05:54
Potassium 3.4 mmol/L (3.5-5.1) L 01/02/24 05:54
BUN 23 mg/dl (7-17) H 01/02/24 05:54
Creatinine 0.5 mg/dL (0.6-1.0) L 01/02/24 05:54
Glucose 103 mg/dl (70-99) H 01/02/24 05:54
Vital Signs and I&O:
Vital Signs
Temp Pulse Resp BP Pulse Ox
97.1 F 79 21 106/68 94
01/02/24 11:55 01/02/24 14:00 01/02/24 14:00 01/02/24 14:00 01/02/24 12:47
Vital Signs
Temp Pulse Resp BP Pulse Ox
97.1 F 79 21 106/68 94
01/02/24 11:55 01/02/24 14:00 01/02/24 14:00 01/02/24 14:00 01/02/24 12:47
Intake & Output
12/31/23 01/01/24 01/02/24 01/03/24
06:59 06:59 06:59 06:59
Intake Total 615 / 615 720 / 720 120 / 120
Output Total 3675 / 3675 150 / 150 100 / 100
Balance -3060 / -3060 570 / 570 -100 / -100 120 / 120
Physical Exam
Physical Exam
GEN: AAOx3
HEENT: EOMI
LUNGS: No audible wheeze
CV: SR on tele
ABD: soft
EXT: No edema B/L
NEURO: Gross non-focal
SKIN: No rash
[2024-01-02] MEDS: DELTASONE 10 MG PO (18:10)
[2024-01-03] VITALS (9 sets, daily range): BP systolic 104–141; BP diastolic 70–111; PULSE 81; O2SAT 97
[2024-01-03] MEDS: TYLENOL 650 MG PO ×3 (00:25→14:46)
[2024-01-03] MEDS: UNASYN IV ×2 (05:54→11:18)
[2024-01-03] MEDS: SYNTHROID 75 MCG PO (05:54)
[2024-01-03 06:34] LABS: % Basophils 0.3 % (0-2); % Eosinophils 0.1 % (0-6); % Immature Granulocytes 8.8 % (0-0.5); % Lymphocytes 4.2 % (20.5-51.1); % Monocytes 2.5 % (1.7-9.3); % Neutrophils 84.1 % (42.2-75.2); Absolute Basophils 0.1 10^3/uL (0-0.2); Absolute Immature Granulocytes 1.6 10^3/uL (0-0.05); Absolute Lymphocytes 0.7 10^3/uL (1.2-3.4); Absolute Monocytes 0.5 10^3/uL (0.1-0.6); Hematocrit 27.3 % (37.0-47.0); Hemoglobin 9.7 g/dL (12.0-16.0); Mean Corp Hgb Conc. 35.5 g/dL (33.0-37.0); Mean Corpuscular Hgb 33.2 pg (27.0-31.0); Mean Corpuscular Volume 93.5 fL (81.0-99.0); Mean Platelet Volume 9.5 fL (7.4-10.4); Nucleated Red Blood Cells % 0.3 %; Platelet Count 277 10^3/uL (130-400); Red Blood Cell Count 2.92 10^6/uL (4.20-5.40); Red Cell Dist. Width 17.2 % (11.5-14.5); White Blood Cell Count 17.8 10^3/uL (4.8-10.8)
[2024-01-03 07:14] LABS: ALT (SGPT) 36 U/L (0-35); AST (SGOT) 50 U/L (14-36); Albumin 2.5 g/dl (3.5-5.0); Alkaline Phosphatase 179 U/L (38-126); Blood Urea Nitrogen 23 mg/dl (7-17); Carbon Dioxide 30 mmol/L (22-30); Chloride 97 mmol/L (98-107); Estimated Creatinine Clearance 49 ml/min; Glucose 101 mg/dl (70-99); Magnesium 1.6 mg/dl (1.6-2.3); Phosphorus 2.7 mg/dl (2.5-4.5); Potassium 3.1 mmol/L (3.5-5.1); Sodium 129 mmol/L (135-145); Total Bilirubin 1.2 mg/dl (0.2-1.3); Total Protein 4.7 g/dl (6.3-8.2); eGFR > 60.00
--- NOTE | 2024-01-03 07:36 | W.DS.TRANS ---
DC Summary - Girl Friday
-
Discharge Instructions:
Sleep Apnea Risk Low
Discharge Diagnosis/Procedures Presented with ischemic bowel now status post
total abdominal colectomy on December 26
Enterococcal bacteremia
Paroxysmal atrial fibrillation with rapid
ventricular response
Chronic Eliquis anticoagulation
Diet Low Residue
Activity As tolerated
Instructions:
Stand-Alone Forms:
Changes to Home Medications: Yes
Discharge Medications:
DC Medications w/original date entered in [employer]
diltiazem HCl 120 mg capsule,extended release 24 hr 120 mg PO DAILY #30 caps 03/24/21
gabapentin 300 mg capsule 300 mg PO DAILY #30 caps 03/24/21
multivitamin with folic acid 400 mcg tablet (Tab-A-Taz) 1 tab PO DAILY #30 tabs 03/24/21
apixaban 2.5 mg tablet (Eliquis) 2.5 mg PO BID Blood Clot Prevention/Tx 12/26/23
levothyroxine 75 mcg tablet 75 mcg PO DAILY AT 0700 Thyroid 12/26/23
prednisone 20 mg tablet 10 mg PO Q48H Anti-Inflammatory 12/26/23
Ampicillin/Sulbactam 3 G [Unasyn] 3 gm 240 mls/hr IV Q6H Infection 01/03/24
nystatin 100,000 unit/mL oral suspension 5 ml PO QID Infection #60 mL 01/03/24
pantoprazole 40 mg tablet,delayed release 40 mg PO DAILY #14 tabs 01/03/24
potassium, sodium phosphates 280 mg-160 mg-250 mg oral powder packet (Phosphorous Supplement) 1 packet PO DAILY Supplement #5 ea 01/03/24
prednisone 10 mg tablet 10 mg PO QPM #14 tabs 01/03/24
sodium chloride 1,000 mg soluble tablet 500 mg (1/2 x 1,000 mg) PO BID #20 tabs 01/03/24
Home Medication Changes
prednisone 20 mg tablet 10 mg PO Q48H Anti-Inflammatory 12/26/23
Ampicillin/Sulbactam 3 G [Unasyn] 3 gm 240 mls/hr IV Q6H Infection 01/03/24
nystatin 100,000 unit/mL oral suspension 5 ml PO QID Infection #60 mL 01/03/24
pantoprazole 40 mg tablet,delayed release 40 mg PO DAILY #14 tabs 01/03/24
potassium, sodium phosphates 280 mg-160 mg-250 mg oral powder packet (Phosphorous Supplement) 1 packet PO DAILY Supplement #5 ea 01/03/24
prednisone 10 mg tablet 10 mg PO QPM #14 tabs 01/03/24
sodium chloride 1,000 mg soluble tablet 500 mg (1/2 x 1,000 mg) PO BID #20 tabs 01/03/24
Pending Results: No
--- NOTE | 2024-01-03 07:48 | W.PN.UPDATE ---
Update Note
Progress Note Update
No issues overnight
Remains in sinus rhythm
Adequate function through ostomy and tolerating low residue diet
Leukocytosis trending down to 17 and believes still in relation to steroid management which is now being tapered
Potassium remains depressed and will add supplement today continue Neutra-Phos and salt tabs
Infectious disease once Unasyn through 10 January
Stable for discharge to [facility] on this date
[2024-01-03] MEDS: NEUTRA-PHOS POWDER PACKET 250 MG PO (09:00)
[2024-01-03] MEDS: NEURONTIN 300 MG PO (09:01)
[2024-01-03] MEDS: SODIUM CHLORIDE 0.5 GRAM PO (09:01)
[2024-01-03] MEDS: CARDIZEM CD 120 MG PO (09:01)
[2024-01-03] MEDS: ELIQUIS 2.5 MG PO (09:02)
[2024-01-03] MEDS: PROTONIX 40 MG PO (09:02)
[2024-01-03] MEDS: MYCOSTATIN ORAL SUSPENSION 5 ML PO ×2 (09:03→12:51)
[2024-01-03] MEDS: KCL 40 MEQ PO (09:25)
--- NOTE | 2024-01-03 10:43 | W.PN.NEPH.PH ---
Today's Communication / Plan
-
40meq kCL IV
holding on samsca due to hypokalemia
Assessment/Plan
-
Assessment:
Enterococcal bacteremia
Severe constipation.
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
Leukocytosis
Hyponatremia
Hypocalcemia
Metabolic acidosis
Atrial fibrillation
HTN
Dyslipidemia
Plan:
hyponatremia decreasing to 129, added salt tab December 31
hypokalemia persists, replace po again today but will give IV 40meq
mild hypophosphatemia-maintain neutraphos
calcium is better and corrected in normal range
50 ounce fluid restriction placed
wean steroids
-
-
Date of Service: January 03, 2024
CC / HPI / ROS
-
Chief Complaint:
acidosis
History of Present Illness:
BP stable, remains in afib rate controlled
Na low at 129
K low at 3.1
tolerating liquid diet
wt is decreasing
Review of Systems:
no CP/SOB at rest
ostomy liquid stool
Labs
-
Labs:
WBC 17.8 10^3/uL (4.8-10.8) H 01/03/24 06:11
RBC 2.92 10^6/uL (4.20-5.40) L 01/03/24 06:11
Hgb 9.7 g/dL (12.0-16.0) L 01/03/24 06:11
Hct 27.3 % (37.0-47.0) L 01/03/24 06:11
Plt Count 277 10^3/uL (130-400) 01/03/24 06:11
Sodium 129 mmol/L (135-145) L 01/03/24 06:11
Potassium 3.1 mmol/L (3.5-5.1) L 01/03/24 06:11
Chloride 97 mmol/L (98-107) L 01/03/24 06:11
Carbon Dioxide 30 mmol/L (22-30) 01/03/24 06:11
BUN 23 mg/dl (7-17) H 01/03/24 06:11
Creatinine 0.7 mg/dL (0.6-1.0) 01/03/24 06:11
eGFR > 60.00 01/03/24 06:11
Glucose 101 mg/dl (70-99) H 01/03/24 06:11
Calcium 8.0 mg/dl (8.4-10.2) L 01/03/24 06:11
Phosphorus 2.7 mg/dl (2.5-4.5) 01/03/24 06:11
Albumin 2.5 g/dl (3.5-5.0) L 01/03/24 06:11
Physical Exam
-
Vital Signs:
Vital Signs
Temp Pulse Resp BP Pulse Ox
98.1 F 79 17 115/75 97
01/03/24 07:30 01/03/24 09:01 01/03/24 08:00 01/03/24 09:01 01/03/24 08:00
Cardiovascular:: Regular rate and rhythm
Respiratory:: Bilateral: Coarse
Lung Excursion:: Normal
Abdomen:: Soft and Tender
Bowel Sounds:: Normal
Extremity Edema:: +1: Bilateral:
Keith Catheter: No
--- NOTE | 2024-01-03 10:51 | W.PN.CRS1 ---
Today's Communication / Plan
-
ok for d/c from our standpoint
Assessment/Plan
-
83 yo female with h/o afib on Eliquis, HTN, hyperlipidemia, sciatica, diverticulitis, elevated LFT's, PMR on chronic steroids presenting with no BM for around 8 days and abdominal pain. CT with large volume colonic stool with colitis without
obstruction, free air or colonic pneumatosis. Decompressive colonoscopy was preformed by GI with evidence of ischemic bowel noted, taken to the OR for management.
POD #7 Exploratory laparotomy with total abdominal colectomy and end ileostomy.
Plan:
1. Pain control: doing well on po acetaminophen PRN.
2. Continue low residue.
3. Wound RN for stoma teaching and dressing changes.
4. Eliquis has been started.
5. Increase activity, OOB as able. PT.
6. Wound dressing changed, jt removed.
7. WBC improved today, now 17.9 from 19.
8. Dispo: [facility] when medically ready. Okay for d/c from our standpoint.
Subjective Data
Procedure
12/27/23 Exploratory laparotomy with total abdominal colectomy and end ileostomy.
Subjective Data
Date of Service: January 03, 2024
Patient states she is tolerating a diet. She has no complaints. She would like to be discharged.
Objective Data
-
Vital Signs
Temp Pulse Resp BP Pulse Ox
98.1 F 79 17 115/75 97
01/03/24 07:30 01/03/24 09:01 01/03/24 08:00 01/03/24 09:01 01/03/24 08:00
Intake & Output
01/02/24 01/03/24 01/04/24
06:59 06:59 06:59
Intake Total 120 / 120
Output Total 100 / 100
Balance -100 / -100 120 / 120
Intake:
Oral fluids 120 / 120
Output:
Liquid stool amount 100 / 100
Ileostomy 100 / 100
Other:
Number of approximated MODERATE 1 1 1
amounts of urine
How many times incontinent 1
MODERATE amount urine
Lab Results
01/03/24 06:11
01/03/24 06:11
Physical Exam
-
General: No Acute Distress and AOx3
Abdomen: Soft, Non Distended and Non Tender
Wound: Dressing in Place
Incision: Clear, Dry, Intact
[2024-01-03] MEDS: KCL 270 MEQ IV (11:48)
[2024-01-03] MEDS: KCL ELIXIR 40 MEQ PO (12:51)
--- NOTE | 2024-01-03 13:04 | WOUNDNOTE ---
[facility] RN note: Patient for transfer to [facility] today. Daughter Theresa present. Reinstructed patient how to empty and change pouch using Holden wafer # [id number], Mariella seal and [place] pouch # [id number]. Patient emptied her pouch with verbal cues and
assistance. She helped remove appliance, prepare wafer and cleaned and dried peristomal skin with verbal instructions and assist. Ostomy supplies in room. Midline abdominal gauze dressing changed. Incision open slightly at proximal end with
small-moderate maharaj ss drainage. No odor. No surrounding erythema. Linear bruise mid abdominal incision same. Updated Aby Akers via tiger text including picture of incision with drainage. Ayb confirmed nursing to change dressing daily with
dry gauze. Updated SENAIT Luque. Discharge instructions updated. Patient's sacral skin is intact. Patient has air chair cushion. Patient stood with walker and assist of SENAIT Luque during skin assessment.
--- NOTE | 2024-01-03 13:17 | PTCARENOTE ---
Rec'd pt this AM. Anxious but responds to emotional support. Vital signs stable. WC RN changed ostomy appliance. Working on bong [facility] later today
--- NOTE | 2024-01-03 13:24 | W.DCSUMMARY ---
Discharge Summary
Discharge Data
Date of Admission: 12/28/23
Date of Discharge: 01/03/24
-
Pending Results: No
Additional Pending Results:
45
Hospital Course
83-year-old female with a known history of atrial fibrillation on Eliquis also underlying hypertension hyperlipidemia sciatica and diverticulitis in the past she had also been treated for polymyalgia rheumatica on chronic steroid management
presented to the ED on date of admission with no prior bowel movement for at least 8 days with increasing abdominal pain
A CT scan of the abdomen showed a large volume of colonic stool and active colitis without apparent obstruction free air or pneumatosis she was admitted placed on empiric antibiotic coverage kept n.p.o. and was consulted with the gastroenterology
service and the surgical service. She underwent a decompressive colonoscopy was performed after it was felt that the patient had developed necrotic bowel from her retained stool and thusly was eventually taken to the OR for an exploratory
laparotomy and underwent a total abdominal colectomy and end ileostomy. In preparation for possible intervention at the time of presentation the patient's anticoagulant therapy was held/postop management with NG tube suctioning till proper bowel
function and after clamping advancing her diet with ongoing wound care to the ostomy site complicating factors during postop status were persisting leukocytosis she had been seen by the infectious disease service and also was noted to have evidence
of positive blood cultures consistent with enterococcal bacteremia that will require an extended course of antibiotics with Unasyn through January 11, 2024.
Another complication in the postop setting was periods of rapid ventricular response atrial fibrillation that required intermittent dosing of IV diltiazem and she was seen by the cardiology service for management. She was able to revert to sinus
rhythm on 02 January and has remained in that stead and will continue on diltiazem CD1 120 mg daily with rate control and sinus rhythm noted at time of discharge to [facility].
She was seen by the nephrology service likewise to manage her electrolyte imbalances and at the time of discharge she was still in requirement for Neutra-Phos and potassium supplementation as needed as needed and for hyponatremia added salt tabs on
December 31.
Persisting leukocytosis is now felt to be from a combination of her stress steroids that were indicated at time of presentation in the setting of her chronic steroid management for PMR and now the gradual titration down of steroid management with
trending down of leukocytosis consequently. Her Eliquis was restarted on 01 January without consequence. She can revert to her usual dosing of her prednisone at every 48 hours 10 mg in the next 3 days until then 10 mg daily of prednisone.
Discharge Plan
-
Patient Disposition: Acute Rehab Facility
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
Enterococcal bacteremia
Paroxysmal atrial fibrillation with rapid ventricular response
Chronic Eliquis anticoagulation
Diet: Low Residue
Activity: As tolerated
Bathing Restrictions: OK to Shower
Wound Care: Daily dressing changes to midline incision with gauze and tape. Corby will be removed at appointment with Dr. López. Ely to remove gauze to shower.
Activity Restrictions/Additional Instructions:
Midline abdominal incision-change dry gauze dressing daily and prn drainage.
Pressure redistributing chair cushion (i.e. air chair cushion).
Ileostomy supplies: Chaplin wafer # [id number], Mariella seal and Chaplin pouch # [id number]. Change 2 times a week and as needed for leakage. May switch to 2 1/4 inch Chaplin wafer # [id number], Mariella seal and Holden pouch # [id number] when supplies need to be
ordered.
Call supply [employer] (list in folder provided) for monthly Ostomy supplies after discharge (ask VN to order supplies while on service).
Follow up with surgeon.
Call [facility] RN nurse for ostomy pouching concerns or leakage problems [phone] or [phone] or [phone].
Instructions: Low Fiber Diet
Referrals:
Austin López MD [Active] - in two weeks
David Valdez MD [Family Provider] - in two to three weeks
Additional Discharge Medication Instructions: To continue Unasyn IV antibiotics through 10 January/can resume prednisone tomorrow per schedule every 48 hours after 3 days
Prescriptions:
New
prednisone 10 mg Tablet
10 mg PO QPM Qty: 14 0RF
nystatin 100,000 unit/mL Suspension
5 ml PO QID Qty: 60 0RF
potassium, sodium phosphates [Phosphorous Supplement] 280-160-250 mg Powder In Packet
1 packet PO DAILY Qty: 5 0RF
pantoprazole 40 mg Tablet,Delayed Release (Dr/Ec)
40 mg PO DAILY Qty: 14 0RF
sodium chloride 1,000 mg Tablet,Soluble
500 mg PO BID Qty: 20 0RF
Ampicillin/Sulbactam 3 G [Unasyn] 3 GM
0.9% Sodium Chloride 100 ml [Nss] 100 ML
240 mls/hr IV Q6H
Reason for use: Infection
Ordered By: Kartik Valero MD
Last Taken: 01/03/24 11:18 120 mls
Rx Instructions:
continued through January 10
Continued
levothyroxine 75 MCG tablet
75 mcg PO DAILY AT 0700
Eliquis 2.5 mg Tablet
2.5 mg PO BID
gabapentin 300 MG capsule
300 mg PO DAILY Qty: 30 0RF
diltiazem HCl 120 MG capsule,extended release 24hr
120 mg PO DAILY Qty: 30 0RF
multivitamin with folic acid [Tab-A-Taz] 1 TABLET tablet
1 tab PO DAILY Qty: 30 0RF
Held
prednisone 20 mg Tablet
10 mg PO Q48H
Hold Instructions: Resume on 01/06/24. Can resume every 48 hour dosing in 3 days
Discontinued
Citrucel 500 mg Tablet
500 mg PO DAILY
Discharge Orders:
Discharge Patient (As Directed); Ordered 01/03/24
Ordered By: Kartik Valero
Discharge Date and Time
Print Language: TAMAZIGHT
--- NOTE | 2024-01-03 14:08 | W.PN.ID1 ---
Date of Service
Date of Service: January 03, 2024
Today's Communication
midline
agree with dc
Assessment / Plan
Enterococcal bacteremia
- cleared as of 12/27
Severe constipation
Ischemic bowel
- s/p colon resection with ileostomy placement.
Leukocytosis
- Current elevation may be secondary to steroids
Renal insufficiency
Multiple drug allergies.
Atrial fibrillation
HTN
Dyslipidemia
Sciatica
Lumbar spinal stenosis
PMR
Trigeminal neuralgia
Recommendations:
Repeat blood cultures 12/27 finalized negative
Intraoperative cultures no growth.
Patient tolerating Unasyn without issue.
Given enterococcal bacteremia, would complete a 2 week course (from first negative blood culture) of IV abx (through 01/11/24)
Ordered midline can be removed on 01/11
Would get a weekly CBC/CMP while on IV antibiotics - copy can be sent to our office
Follow up with PCP, can follow up with Dr Nuñez as needed
����������������������������������������������������������
Chief Complaint
-: Other (Ischemic bowel)
Subjective / Review of Systems
afebrile
bp stable
declining leukocytosis
cr stable
tolerating current therapies
Vital Signs / Physical Exam
Vital Signs
Vital Signs
Temp Pulse Resp BP Pulse Ox
97.4 F 90 22 110/96 97
01/03/24 11:09 01/03/24 12:00 01/03/24 12:00 01/03/24 12:00 01/03/24 10:41
Physical Exam
Constitutional: No Acute Distress
Cardiovascular: Regular Rate and S1/S2; Negative Murmur or Rub
Pulmonary: Clear and Symmetric; Negative Wheezes or Rales
Gastrointestinal: Soft, Non Tender, Non Distended and Normal Bowel Sounds
Skin: Warm and Dry; Negative Rash or Jaundice
Lines: PIV
Physical Exam:
ostomy pink with brown output
Objective Data
Lab Data
Lab Results
01/03/24 06:11
01/03/24 06:11
Estimated Creat Clear 49 ml/min 01/03/24 06:11
Total Bilirubin 1.2 mg/dl (0.2-1.3) 01/03/24 06:11
AST 50 U/L (14-36) H 01/03/24 06:11
ALT 36 U/L (0-35) H 01/03/24 06:11
Alkaline Phosphatase 179 U/L (38-126) H 01/03/24 06:11
Most recent labs reviewed.
Micro Results:
12/27/23 20:06 Wound Culture - Final
Abdomen No growth
Gram Stain - Final
12/27/23 20:06 Anaerobic Culture - Final
Abdomen NO ANAEROBES ISOLATED
12/28/23 10:34 Blood Culture - Final
Blood/Venous No Growth - Final Report
12/28/23 06:30 Blood Culture - Final
Blood/Venous No Growth - Final Report
12/26/23 21:21 Blood Culture - Final
Blood/Venous No Growth - Final Report
12/26/23 20:10 Blood Culture - Final
Blood/Venous Enterococcus faecalis
Gram Stain - Final
Imaging:
12/26/2023 CT abdomen/pelvis: Sigmoid diverticulosis noted but study limited secondary to beam hardening artifact and lack of oral contrast. There is marked large volume of widespread colonic stool. Several areas of thickening of the wall of the
bowel with colitis being a consideration. No intestinal obstruction or free air noted. Please see full dictation for additional detail.
[2024-01-03] MEDS: ZOFRAN ODT (ORALLY DISINTEGRATING) 4 MG PO (14:17)
--- NOTE | 2024-01-03 15:12 | CM ---
Patient who is s/p colectomy with ileostomy. Room air. Receiving IV Abx. Midline. PT/OT recommending acute rehab. Physiatry Consult recommends acute rehab.
Spoke with [facility]; they can accept the patient today. She is aware of ileostomy supply needs and plan for IV Abx through 01/10. The ph for report [phone] and fax [phone].
Met with patient who agrees to [facility] today. IMM done yesterday.
Daughter aware of d/c as per notes 01/02/24.
Plan [facility] today.
== END 2024-01-03 17:00 | DRG 329 ==
LOC: IMU 07:54
PROVIDERS: Nurse Practitioner Adult Health; Physician Assistant; Radiology Diagnostic Radiology; Registered Nurse; ADMITTING PHYSICIAN Hospitalist; ATTENDING PHYSICIAN Internal Medicine; CONSULT PHYSICIAN Internal Medicine Cardiovascular Disease; CONSULT PHYSICIAN Internal Medicine Gastroenterology; CONSULT PHYSICIAN Internal Medicine Infectious Disease; CONSULT PHYSICIAN Surgery; EMERGENCY PHYSICIAN Student in an Organized Health Care Education/Training Program; FAMILY PHYSICIAN Family Medicine; OTHER PHYSICIAN Physical Medicine & Rehabilitation; OTHER PHYSICIAN Specialist
PROC: 0D1B0Z4 Bypass Ileum to Cutaneous, Open Approach (ICD-10-PCS; 2023-12-27)
PROC: 0DJD8ZZ Inspection of Lower Intestinal Tract, Via Natural or Artificial Opening Endoscopic (ICD-10-PCS; 2023-12-27)
PROC: 0DTE0ZZ Resection of Large Intestine, Open Approach (ICD-10-PCS; 2023-12-27)
PROC: 0D9670Z Drainage of Stomach with Drainage Device, Via Natural or Artificial Opening (ICD-10-PCS; 2023-12-28)
DX: K55.049 Acute infarction of large intestine, extent unspecified (principal); G93.41 Metabolic encephalopathy; D62 Acute posthemorrhagic anemia; E87.1 Hypo-osmolality and hyponatremia; M48.54XA Collapsed vertebra, not elsewhere classified, thoracic region, initial encounter for fracture; K57.32 Diverticulitis of large intestine without perforation or abscess without bleeding; K63.3 Ulcer of intestine; R78.81 Bacteremia; E87.20 Acidosis, unspecified; I48.3 Typical atrial flutter; F05 Delirium due to known physiological condition; K59.00 Constipation, unspecified; E03.9 Hypothyroidism, unspecified; I10 Essential (primary) hypertension; I48.0 Paroxysmal atrial fibrillation; E78.00 Pure hypercholesterolemia, unspecified; M48.061 Spinal stenosis, lumbar region without neurogenic claudication; K64.9 Unspecified hemorrhoids; E87.5 Hyperkalemia; K21.9 Gastro-esophageal reflux disease without esophagitis; K44.9 Diaphragmatic hernia without obstruction or gangrene; B95.2 Enterococcus as the cause of diseases classified elsewhere; R32 Unspecified urinary incontinence; R68.0 Hypothermia, not associated with low environmental temperature; E83.51 Hypocalcemia; M19.90 Unspecified osteoarthritis, unspecified site; E87.6 Hypokalemia; I49.5 Sick sinus syndrome; M35.3 Polymyalgia rheumatica; M79.662 Pain in left lower leg; Z96.641 Presence of right artificial hip joint; Z79.01 Long term (current) use of anticoagulants; Z79.51 Long term (current) use of inhaled steroids; Z79.891 Long term (current) use of opiate analgesic; Z87.891 Personal history of nicotine dependence; Z88.1 Allergy status to other antibiotic agents; Z88.5 Allergy status to narcotic agent; Z88.0 Allergy status to penicillin; Z88.2 Allergy status to sulfonamides; Z88.8 Allergy status to other drugs, medicaments and biological substances; Z79.84 Long term (current) use of oral hypoglycemic drugs; Z79.52 Long term (current) use of systemic steroids; Z79.890 Hormone replacement therapy
CPT/HCPCS: 88307; 71045; 73590; 74177; 80048; 80053; 83735; 83930; 83935; 84100; 84134; 84300; 84443; 84478; 85025; 85027; 86704; 86706; 86708; 86709; 86803; 87040; 87070; 87075; 87149; 87176; 87186; 87205; 87340; 93005; 93306; 93970; 96360; 97116; 97163; 97167; 97530; 97535; 99285; J2185; J7168; Q9967

== ENCOUNTER 2024-01-04 15:54 | Inpatient (IN) | payer MEDICARE, BC, SELFPAY ==
[2024-01-04] VITALS (11 sets, daily range): BP systolic 117–169; BP diastolic 62–96; BMI 23.5
--- NOTE | 2024-01-04 09:39 | ED.GENMED ---
History of Present Illness
General
Chief Complaint: Post Operative Problem(s)
Source: patient and residential
Exam Limitations: none
Time Seen by Provider: 01/04/24 09:34
Nursing documentation reviewed up to this point in time: agreed with
Travel History
Have you had any contact with someone who has COVID-19?: No
Do you have any symptoms of coronavirus? Fever > 100 degrees, chills, cough, shortness of breath, sore throat, loss of taste or smell, muscle aches, or headache?: No
History of Present Illness
History of Present Illness:
83-year-old female presents emergency department due to low blood pressure and hypoxia, as well as vomiting dark brown/black emesis last night. She is brought down from [facility]. She was recommended to come down here by the attending physician
loss. 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
Past History
Past History
ED Past Medical History: Arrthythmia (afib), HTN and Hypothyroidism; Negative CVA
ED Past Surgical History: Bowel resection
Social History
Tobacco: Former smoker
Alcohol: Occasional
Drug: None
Personal:
Living: with family
Employment: Retired
Family History
Family History: Other (nonContributory)
Review of Systems
Review of Systems
Allergies reviewed?: Yes
All Other Systems: Not applicable
Constitutional: Reports no symptoms
EENT: Reports no symptoms
Respiratory: Reports no symptoms
Cardiac: Reports no symptoms
ABD/GI: Reports vomiting
: Reports no symptoms
Musculoskeletal: Reports no symptoms
Skin: Reports no symptoms
Neurological: Reports no symptoms
Endocrine: Reports no symptoms
Hematologic/Lymphatic: Reports no symptoms
Psychiatric: Reports no symptoms
Phy Exam
Physical Exam
Physical Exam:
Physical Exam
General: no apparent distress, not acutely ill
Neck: supple. no meningeal signs. normal posterior pharynx
Heart: s1/s2 regular rate and rhythm, no murmur. equal radial
pulses.
HEENT: Pupils equal round reactive to light, EOMI
Lungs: no acute respiratory distress. clear bilaterally
Abdomen: normal bowel sounds. not tender. no CVAT, colostomy end ileostomy
Neuro: alert and oriented. no focal neurological deficits cranial nerves II through XII intact
Skin: no rash
Psychiatric: well kept. interactive and cooperative
Extremities: no edema. no calf tenderness. negative homans. good distal pulses
Course
Orders/Labs/Results
Orders:
Orders
01/04/24 09:34
Chest (PA) Obstruct Series [CR Obstruct Series W/pa Chest] Urgent
Comment:
Reason For Exam: vomiting, recent ileostomy/colectomy
01/04/24 09:46
Complete Blood Count/With Diff Urgent
Comprehensive Metabolic Panel Urgent
NT-proBNP Urgent
Troponin I Urgent
01/04/24 10:33
US Legs, Bilateral [US Periph Venous LOWER Ext Nicho] Urgent
Comment:
Reason For Exam: bilateral leg swelling
01/04/24 11:03
CT Abd/pel W Iv And Oral Contr Urgent
Comment:
Reason For Exam: vomiting, recent colectomy for ischemic bowel
Iohexol [Omnipaque] See Protocol PO NOW STA
01/04/24 14:49
NG Tube [GI tube insertion- Treatment] ONCE
Abnormal Lab Results
01/04/24
09:46
WBC 25.2 H 10^3/uL
(4.8-10.8)
RBC 2.84 L 10^6/uL
(4.20-5.40)
Hgb 9.5 L g/dL
(12.0-16.0)
Hct 27.5 L %
(37.0-47.0)
MCH 33.5 H pg
(27.0-31.0)
RDW 18.5 H %
(11.5-14.5)
Abs Immat Gran (auto) 1.4 H 10^3/uL
(0-0.05)
Absolute Neuts (auto) 22.2 H 10^3/uL
(1.4-6.5)
Absolute Lymphs (auto) 0.8 L 10^3/uL
(1.2-3.4)
Absolute Monos (auto) 0.7 H 10^3/uL
(0.1-0.6)
Immature Gran % 5.6 H %
(0-0.5)
Neutrophils % 88.0 H %
(42.2-75.2)
Lymphocytes % 3.0 L %
(20.5-51.1)
Sodium 128 L mmol/L
(135-145)
Chloride 94 L mmol/L
(98-107)
BUN 26 H mg/dl
(7-17)
Glucose 125 H mg/dl
(70-99)
AST 44 H U/L
(14-36)
ALT 36 H U/L
(0-35)
Alkaline Phosphatase 201 H U/L
(38-126)
Total Protein 4.7 L g/dl
(6.3-8.2)
Albumin 2.5 L g/dl
(3.5-5.0)
01/04/24 09:46
01/04/24 09:46
Vital Signs
Initial and Last Documented VS:
Initial Vital Signs
Temp Pulse Resp BP Pulse Ox
97.4 F 84 16 117/62 100
01/04/24 09:33 01/04/24 09:33 01/04/24 09:33 01/04/24 09:33 01/04/24 09:33
Last Documented Vital Signs
Temp Pulse Resp BP Pulse Ox
97.4 F 85 16 130/90 96
01/04/24 09:33 01/04/24 13:09 01/04/24 13:09 01/04/24 13:09 01/04/24 13:09
MDM/Problems Addressed
Differential Diagnosis Includes:
83-year-old female with small bowel obstruction. Bilateral pleural effusions, unclear etiology. Patient seen and evaluated by Dr. Wheatley. Discussed with Dr. Wheatley prior requests admission hospitalist. Dr. Licea agreed to admit.
Chronic conditions affecting care: Previous abdomnial surgery (Colon resection)
Acute Exacerbation and/or Progression of Chronic Illness: Previous abdomnial surgery (Colon resection)
*Radiology
Radiology exam reviewed: radiology read reviewed (CT abdomen pelvis shows small bowel obstruction)
*Pulse Oximetry
Patient hypoxic: no
*EKG
Interpreted by ED Provider?: NA
*Real Estate Consultant Interpretation
Rate: Real Estate Consultant- N/A
*Critical Care Note
Total Time (30-74mins, 75-104mins- exclusive of procedures): Not Applicable
Data Reviewed
Review of Other/Old Records Reveals: Operative Reports (Recent small bowel colectomy by Dr. López)
Patient Management
Social determinants of health affecting care: Living situation
Discussion with other providers: Hospitalist and Creative Services Specialist (Colorectal surgery Dr. Wheatley)
Escalation/DeEscalation of care consider admission/obs:
Admit indicated
ED Attending Note
-
Portions of this chart may have been created with voice recognition software.� Occasional wrong word or��sound alike� substitutions may have occurred due to the inherent limitations of voice recognition software.
Discharge Plan
Departure
Patient Disposition: Admit
Date of Disposition: 01/04/24
Time of Disposition: 14:42
Admit to: Med/Surg
Presentation/result/management discussed w/ accepting MD/DO: Hospitalist
Condition: Fair
Discharge Problem:
Small bowel obstruction
Prescriptions:
No Action
prednisone 20 mg Tablet
10 mg PO Q48H
Hold Instructions: Resume on 01/06/24. Can resume every 48 hour dosing in 3 days
Rx Instructions:
Resume on 01/06/24. Can resume every 48 hour dosing in 3 days
levothyroxine 75 MCG tablet
75 mcg PO DAILY AT 0700
Eliquis 2.5 mg Tablet
2.5 mg PO BID
prednisone 10 mg Tablet
10 mg PO QPM Qty: 14 0RF
nystatin 100,000 unit/mL Suspension
5 ml PO QID Qty: 60 0RF
potassium, sodium phosphates [Phosphorous Supplement] 280-160-250 mg Powder In Packet
1 packet PO DAILY Qty: 5 0RF
pantoprazole 40 mg Tablet,Delayed Release (Dr/Ec)
40 mg PO DAILY Qty: 14 0RF
Ampicillin/Sulbactam 3 G [Unasyn] 3 GM
0.9% Sodium Chloride 100 ml [Nss] 100 ML
240 mls/hr IV Q6H
Reason for use: Infection
Ordered By: Kartik Valero MD
Last Taken: 01/04/24 08:16
Patient Comments:
Continued through January 10
Rx Instructions:
continued through January 10
ondansetron HCl 4 mg Tablet
4 mg PO Q8H PRN (Reason: NAUSEA/VOMITING)
Theragran Tablet
1 tab PO DAILY
acetaminophen [Tylenol Extra Strength] 500 mg Tablet
1,000 mg PO Q8H
gabapentin 300 MG capsule
300 mg PO DAILY Qty: 30 0RF
diltiazem HCl 120 MG capsule,extended release 24hr
120 mg PO DAILY Qty: 30 0RF
multivitamin with folic acid [Tab-A-Taz] 1 TABLET tablet
1 tab PO DAILY
Rx Instructions:
400 mcg tab
Referrals:
David Valdez MD [Family Provider] -
Interventions
Interventions:
*Risk Screen - Suicide Last Done: 01/04/24 09:37
*General Assessment Last Done: 01/04/24 09:36
*Neglect/Abuse Screening Last Done: 01/04/24 09:37
ED- Fall Risk Assessment Last Done: 01/04/24 09:38
*ED COVID-19 Vaccine History Last Done: 01/04/24 09:36
ED-Skin Assessment Last Done: 01/04/24 09:37
Discharge Date and Time
Print Language: [place]
[2024-01-04 10:04] LABS: % Basophils 0.3 % (0-2); % Eosinophils 0.2 % (0-6); % Immature Granulocytes 5.6 % (0-0.5); % Monocytes 2.9 % (1.7-9.3); Absolute Basophils 0.1 10^3/uL (0-0.2); Absolute Immature Granulocytes 1.4 10^3/uL (0-0.05); Absolute Lymphocytes 0.8 10^3/uL (1.2-3.4); Absolute Monocytes 0.7 10^3/uL (0.1-0.6); Absolute Neutrophils 22.2 10^3/uL (1.4-6.5); Hematocrit 27.5 % (37.0-47.0); Hemoglobin 9.5 g/dL (12.0-16.0); Mean Corp Hgb Conc. 34.5 g/dL (33.0-37.0); Mean Corpuscular Hgb 33.5 pg (27.0-31.0); Mean Corpuscular Volume 96.8 fL (81.0-99.0); Nucleated Red Blood Cells % 0.1 %; Red Blood Cell Count 2.84 10^6/uL (4.20-5.40); Red Cell Dist. Width 18.5 % (11.5-14.5); White Blood Cell Count 25.2 10^3/uL (4.8-10.8)
[2024-01-04 10:07] LABS: Platelet Count 367 10^3/uL (130-400)
[2024-01-04 10:14] LABS: ALT (SGPT) 36 U/L (0-35); AST (SGOT) 44 U/L (14-36); Albumin 2.5 g/dl (3.5-5.0); Alkaline Phosphatase 201 U/L (38-126); Blood Urea Nitrogen 26 mg/dl (7-17); Calcium 8.5 mg/dl (8.4-10.2); Carbon Dioxide 28 mmol/L (22-30); Chloride 94 mmol/L (98-107); Estimated Creatinine Clearance 38 ml/min; Glucose 125 mg/dl (70-99); Potassium 4.8 mmol/L (3.5-5.1); Sodium 128 mmol/L (135-145); Total Bilirubin 1.3 mg/dl (0.2-1.3); Total Protein 4.7 g/dl (6.3-8.2); eGFR > 60.00
[2024-01-04 10:22] LABS: NT-proBNP 2270 pg/ml
[2024-01-04 10:30] LABS: Troponin I < 0.012 ng/ml
[2024-01-04] MEDS: OMNIPAQUE 50 ML PO (11:34)
--- NOTE | 2024-01-04 13:00 | CON.CRS ---
Consultation
-
Date/Time Consultation Requested: 01/04/2024, 11:30
Date/Time Consultation Performed: 01/04/2024, 12:30
Requesting Provider: Burton Brizuela DO
Performing Provider: Yariel Wheatley MD
Reason for Consultation: s/p exploratory laparotomy with total abdominal colectomy and end ileostomy
Medical History
-
Chief Complaint: vomiting
History of Present Illness:
83yo female, discharged yesterday from [facility] after a stay from 12/26/2023-01/03/2024 due to mesenteric ischemia s/p exploratory laparotomy with total abdominal colectomy and end ileostomy, returns after vomiting overnight at [facility]. The
patient states she feels a little distended today and vomited again this morning. She has no nausea, she states that the vomit 'just came out of her'. She has not noticed any discharge from her incision. Her ileostomy has been functioning. She has
no other complaints. She has remained on steroids and remains on po prednisone. In the ER, her WBC is 25.2. Her vitals are normal.
Past Medical History
Past Medical History: Other (Arrhythmias (atrial fibrillation), HTN, Hypercholesterolemia and Other (sciatica, lumbar spinal stenosis, PMR, trigeminal neuralgia))
Past Surgical History: Bowel Resection (12/27/23 Exploratory laparotomy with total abdominal colectomy and end ileostomy. ) and Other (Appendectomy, Cardiac (ablation) and Orthopedic (right hip hemiarthroplasty))
Social History
Tobacco: Former Smoker
Alcohol: Former
Family History
Family History: Reviewed & Not Pertinent
Allergies / Home Medications
Allergy/AdvReac Type Severity Reaction Status Date / Time
amlodipine Allergy Nausea Verified 12/24/23 06:30
doxycycline Allergy Hives Verified 12/24/23 06:30
hydrocodone [From Vicodin] Allergy Vomiting Verified 12/27/23 17:56
metoprolol [From Lopressor] Allergy Dizzy Verified 12/24/23 06:30
Sulfa (Sulfonamide Allergy Hives Verified 12/24/23 06:30
Antibiotics)
sulfamethoxazole Allergy Rash Verified 12/24/23 06:30
[From Bactrim]
trimethoprim [From Bactrim] Allergy Rash Verified 12/24/23 06:30
�Medication �Instructions �Recorded �Confirmed �Type
diltiazem HCl 120 mg 120 mg PO DAILY #30 caps 03/24/21 01/04/24 Rx
capsule,extended release 24 hr
gabapentin 300 mg capsule 300 mg PO DAILY #30 caps 03/24/21 01/04/24 Rx
apixaban 2.5 mg tablet (Eliquis) 2.5 mg PO BID Blood Clot 12/26/23 01/04/24 History
Prevention/Tx
levothyroxine 75 mcg tablet 75 mcg PO DAILY AT 0700 Thyroid 12/26/23 01/04/24 History
prednisone 20 mg tablet 10 mg PO Q48H Anti-Inflammatory 12/26/23 01/04/24 History
Ampicillin/Sulbactam 3 G [Unasyn] 240 mls/hr IV Q6H Infection 01/03/24 01/04/24 Rx
3 gm
multivitamin with folic acid 400 1 tab PO DAILY 01/03/24 01/04/24 History
mcg tablet (Tab-A-Taz)
nystatin 100,000 unit/mL oral 5 ml PO QID Infection #60 mL 01/03/24 01/04/24 Rx
suspension
pantoprazole 40 mg tablet,delayed 40 mg PO DAILY #14 tabs 01/03/24 01/04/24 Rx
release
potassium, sodium phosphates 280 1 packet PO DAILY Supplement #5 ea 01/03/24 01/04/24 Rx
mg-160 mg-250 mg oral powder
packet (Phosphorous Supplement)
prednisone 10 mg tablet 10 mg PO QPM #14 tabs 01/03/24 01/04/24 Rx
acetaminophen 500 mg tablet 1,000 mg PO Q8H mild pain 01/04/24 01/04/24 History
(Tylenol Extra Strength)
ondansetron HCl 4 mg tablet 4 mg PO Q8H PRN NAUSEA/VOMITING 01/04/24 01/04/24 History
therapeutic multivitamin 1 tab PO DAILY 01/04/24 01/04/24 History
Review of Systems
-
History Source: Patient
All other systems: Negative unless noted
Abdomen/GI: Vomiting
A 10 point review of systems was completed, and was negative except as per HPI.
Physical Exam
Vital Signs
Temp 97.4 F 01/04/24 09:33
Pulse 80 01/04/24 12:05
Resp Rate 16 01/04/24 12:05
Blood pressure 138/96 01/04/24 12:05
SaO2 100 01/04/24 12:05
01/03/24 01/04/24 01/05/24
06:59 06:59 06:59
Actual Weight 60.2 kg
Body Mass Index (BMI) 23.5
Lab Results / Allergies
01/04/24 09:46
01/04/24 09:46
WBC 25.2 10^3/uL (4.8-10.8) H 01/04/24 09:46
Hgb 9.5 g/dL (12.0-16.0) L 01/04/24 09:46
Hct 27.5 % (37.0-47.0) L 01/04/24 09:46
Plt Count 367 10^3/uL (130-400) D 01/04/24 09:46
Abs Immat Gran (auto) 1.4 10^3/uL (0-0.05) H 01/04/24 09:46
Neutrophils % 88.0 % (42.2-75.2) H 01/04/24 09:46
Allergy/AdvReac Type Severity Reaction Status Date / Time
amlodipine Allergy Nausea Verified 12/24/23 06:30
doxycycline Allergy Hives Verified 12/24/23 06:30
hydrocodone [From Vicodin] Allergy Vomiting Verified 12/27/23 17:56
metoprolol [From Lopressor] Allergy Dizzy Verified 12/24/23 06:30
Sulfa (Sulfonamide Allergy Hives Verified 12/24/23 06:30
Antibiotics)
sulfamethoxazole Allergy Rash Verified 12/24/23 06:30
[From Bactrim]
trimethoprim [From Bactrim] Allergy Rash Verified 12/24/23 06:30
Physical Exam
General: Well Developed and Well Nourished
GI: Soft, Non Tender, Distended (mild), Incisions (scant discharge on gauze (light maharaj)) and Other (ileostomy warm and pink, no flatus in bad, some liquid stool output)
Skin: Warm and Dry
Neuro: AO x 3
Data Reviewed
-
Radiology: Image Personally Visualized and interpreted, Report Reviewed by me and Discussed with Patient
Labs: Labs Reviewed by me, Discussed with Physician and Discussed with Patient
Old Records: Reviewed
Assessment / Plan
-
Assessment: 83 yo female with h/o afib on Eliquis, HTN, hyperlipidemia, sciatica, diverticulitis, elevated LFT's, PMR on chronic steroids presenting with no BM for around 8 days and abdominal pain. CT with large volume colonic stool with colitis
without obstruction, free air or colonic pneumatosis. Decompressive colonoscopy was preformed by GI with evidence of ischemic bowel noted, taken to the OR for management. POD #8 Exploratory laparotomy with total abdominal colectomy and end
ileostomy. Discharged on 01/03/2024 and returns with vomiting at rehab.
Plan:
Will await CT A/P with po and IV contrast (patient was unable to tolerate most of the po contrast). Plans to follow. Recommend NPO for now. If she continues to vomit, she will need an NGT (patient expresses she does not want it).
--- NOTE | 2024-01-04 15:37 | HPS.HSE ---
Family Physician
-
Family Physician: David Valdez
Chief Complaint
-
Hematemesis
History of Present Illness
83-year-old female who was just discharged from this facility yesterday after she had undergone a extended inpatient admission in relation to presentation recent on 25 December with mesenteric ischemia secondary to her protracted period of constipation
and retained stool causing necrosis and eventual exploratory laparotomy with total abdominal colectomy and end end ileostomy being performed. Her stay was complicated by recurrent episodes of rapid ventricular response atrial fibrillation being off
her usual dosage of diltiazem p.o. controlled with diltiazem IV also was noted to be bacteremic with Enterococcus and to complete IV Unasyn therapy through 10 January. After overnight stay in [facility] she developed emesis with mild distention and
again vomited this morning although was not preceded by nausea it was described as being bloody and 'just came out of her'. She is continue to have ileostomy functioning throughout and tolerated her morning meal this morning. Pertinent laboratory
profile in this morning noted further elevation in leukocytosis has been noted to be trending down at time of discharge now up to 25,000 she remains in a sinus rhythm with stable blood pressure and stable pulse ox of 98% on room air. Chronic
medical problems include atrial fibrillation for which she was placed back on Eliquis 2 days prior to her discharge from the most recent admission and she is back on her usual dosage of 120 mg of diltiazem for rate control and remaining in sinus
rhythm. She was placed on a daily dosage of prednisone with the thoughts of eventually further tapered to her usual every [address] schedule.
A subsequent CT of the abdomen pelvis shows a recurrent small bowel obstruction with a transition noted in the left lower quadrant but difficult to isolate. There is thickening of the decompressed loops of the small bowel extending to the
ileostomy there is also fluid described in the abdomen and pelvis. And there is bilateral pleural effusion presumed in relation to compressive atelectasis bilaterally there is third spacing of fluid throughout the soft tissues also noteworthy.
Medical History
Past Medical History
Past Medical History: Reports Arrhythmia, Fibromyalgia (pmr), HTN and Hypothyroidism
Past Surgical History: Reports Bowel Resection
Additional Past Surgical History:
Recent colectomy with ileostomy
Social History
Tobacco: Non-smoker
Alcohol: None
Drug: None
Personal:
Living: Alone
Employment: Not Employed
Family History
Family History: Not pertinent
Allergies / Home Medications
Allergies reflects when Allergies were last updated in [facility].
Home Medications with original date entered in [facility]
Allergy/Medication List:
Allergies
Allergy/AdvReac Type Severity Reaction Status Date / Time
amlodipine Allergy Nausea Verified 12/24/23 06:30
doxycycline Allergy Hives Verified 12/24/23 06:30
hydrocodone [From Vicodin] Allergy Vomiting Verified 12/27/23 17:56
metoprolol [From Lopressor] Allergy Dizzy Verified 12/24/23 06:30
Sulfa (Sulfonamide Allergy Hives Verified 12/24/23 06:30
Antibiotics)
sulfamethoxazole Allergy Rash Verified 12/24/23 06:30
[From Bactrim]
trimethoprim [From Bactrim] Allergy Rash Verified 12/24/23 06:30
Home Medications
diltiazem HCl 120 mg capsule,extended release 24 hr 120 mg PO DAILY #30 caps 03/24/21
gabapentin 300 mg capsule 300 mg PO DAILY #30 caps 03/24/21
apixaban 2.5 mg tablet (Eliquis) 2.5 mg PO BID Blood Clot Prevention/Tx 12/26/23
levothyroxine 75 mcg tablet 75 mcg PO DAILY AT 0700 Thyroid 12/26/23
prednisone 20 mg tablet 10 mg PO Q48H Anti-Inflammatory 12/26/23
Ampicillin/Sulbactam 3 G [Unasyn] 3 gm 240 mls/hr IV Q6H Infection 01/03/24
multivitamin with folic acid 400 mcg tablet (Tab-A-Taz) 1 tab PO DAILY 01/03/24
nystatin 100,000 unit/mL oral suspension 5 ml PO QID Infection #60 mL 01/03/24
pantoprazole 40 mg tablet,delayed release 40 mg PO DAILY #14 tabs 01/03/24
potassium, sodium phosphates 280 mg-160 mg-250 mg oral powder packet (Phosphorous Supplement) 1 packet PO DAILY Supplement #5 ea 01/03/24
prednisone 10 mg tablet 10 mg PO QPM #14 tabs 01/03/24
acetaminophen 500 mg tablet (Tylenol Extra Strength) 1,000 mg PO Q8H mild pain 01/04/24
ondansetron HCl 4 mg tablet 4 mg PO Q8H PRN NAUSEA/VOMITING 01/04/24
therapeutic multivitamin 1 tab PO DAILY 01/04/24
Review of Systems
-
History Source: Patient and Family
Constitutional: Reports Fatigue
Respiratory: Reports No Symptoms
Cardiac: Reports No Symptoms
Abdomen/GI: Reports Nausea and Vomiting
Physical Exam
Vital Signs
Vital Signs
Temp Pulse Resp BP Pulse Ox
97.4 F 85 16 130/90 96
01/04/24 09:33 01/04/24 13:09 01/04/24 13:09 01/04/24 13:09 01/04/24 13:09
Physical Exam
General: Appears Chronically Ill
HEENT: NormoCephalic
Respiratory: Clear and Decreased Breath Sounds (At the bases)
Cardiac: S1/S2 and Regular Rhythm
GI: Soft, Non Tender, Non Distended and Ostomy (Ileostomy and seems to be functioning presently)
Neuro: Awake and Oriented
Laboratory Results
-
01/04/24 09:46
01/04/24 09:46
Laboratory Results
Total Bilirubin 1.3 mg/dl (0.2-1.3) 01/04/24 09:46
AST 44 U/L (14-36) H 01/04/24 09:46
ALT 36 U/L (0-35) H 01/04/24 09:46
Alkaline Phosphatase 201 U/L (38-126) H 01/04/24 09:46
Troponin I < 0.012 ng/ml 01/04/24 09:46
Data Reviewed
-
Critical Care Time (in minutes): 67
CT Scan: Report Reviewed by me and Discussed with Physician
Lab Data: Labs Reviewed by me (Leukocytosis trending up to 25,000 with left shift hemoglobin stable at 9.5/albumin depressed at 2.5)
Impression/Plan
-
IMPRESSION:
83-year-old female who was just discharged from this facility yesterday after she had undergone a extended inpatient admission in relation to presentation recent on 25 December with mesenteric ischemia secondary to her protracted period of constipation
and retained stool causing necrosis and eventual exploratory laparotomy with total abdominal colectomy and end end ileostomy being performed. Her stay was complicated by recurrent episodes of rapid ventricular response atrial fibrillation being off
her usual dosage of diltiazem p.o. controlled with diltiazem IV also was noted to be bacteremic with Enterococcus and to complete IV Unasyn therapy through 10 January. After overnight stay in [facility] she developed emesis with mild distention and
again vomited this morning although was not preceded by nausea it was described as being bloody and 'just came out of her'. She is continue to have ileostomy functioning throughout and tolerated her morning meal this morning. Pertinent laboratory
profile in this morning noted further elevation in leukocytosis has been noted to be trending down at time of discharge now up to 25,000 she remains in a sinus rhythm with stable blood pressure and stable pulse ox of 98% on room air. Chronic
medical problems include atrial fibrillation for which she was placed back on Eliquis 2 days prior to her discharge from the most recent admission and she is back on her usual dosage of 120 mg of diltiazem for rate control and remaining in sinus
rhythm. She was placed on a daily dosage of prednisone with the thoughts of eventually further tapered to her usual every [address] schedule[address]
A subsequent CT of the abdomen pelvis shows a recurrent small bowel obstruction with a transition noted in the left lower quadrant but difficult to isolate. There is thickening of the decompressed loops of the small bowel extending to the
ileostomy there is also fluid described in the abdomen and pelvis. And there is bilateral pleural effusion presumed in relation to compressive atelectasis bilaterally there is third spacing of fluid throughout the soft tissues also noteworthy.
Recurrent small bowel obstruction
-Status post colectomy for necrotic bowel after period of obstipation constipation/end ileostomy
-NG tube to suction
-IV fluids
-Colorectal surgery consultation
-Monitor status of ileostomy and function
-Wound care/ostomy
-Given extended course of diminished alimentation albuminemia and edema may need TPN
Bilateral pleural effusion/peripheral edema
-Presumed in combination of compressive atelectasis and hypoalbuminemia
-Encourage spirometry
-Venous Doppler prior to discharge Danny was negative for DVT
Enterococcal bacteremia
-Continue present course of Unasyn through 10 January per ID
-Should leukocytosis continue unabated consider infectious disease consultation input
-Subsequent blood cultures have proved negative and has been afebrile
Paroxysmal atrial fibrillation
-Recently manifested with RVR in the absence of her usual dose of diltiazem with good results with IV diltiazem in the short-term
-Watch for recurrence of RVR while off p.o. diltiazem
-As needed metoprolol IV
-Eliquis will again be held/with question of GI bleed will hold off on pharmacologic DVT prophylaxis
-Presents with stable sinus rhythm now
Leukocytosis
-Multifactorial from ongoing steroid management and also acute process of recurrent small bowel obstruction
Hematemesis
-Unclear if in relation to small bowel obstruction itself or or another upper GI source
-Will be placed on twice daily PPI
-Hemodynamically stable presently
Polymyalgia rheumatica by history
-Steroid-dependent and had been undergoing steroid taper to her usual dosage of prednisone every 48
-Will place on hydrocortisone IV 25 mg by every 12 presently
Hypothyroidism
-Will defer transition to IV levothyroxine unless protracted period of need for NG tube suction and lack of oral intake and then transition to IV if necessary
DVT prophylaxis only with SCDs
Full CODE STATUS
[2024-01-04] MEDS: OFIRMEV 100 IV (16:30)
[2024-01-04] MEDS: NSS 1000 IV (17:28)
[2024-01-04] MEDS: UNASYN IV ×2 (18:32→23:32)
[2024-01-04 18:49] LABS: INR 1.17; PT 14.7 Sec (11.4-14.6)
[2024-01-04 18:50] LABS: APTT 25.2 Sec (23.4-35.0)
[2024-01-04] MEDS: CHLORASEPTIC/SORE THROAT SPRAY 1 SPRAY PO (20:22)
[2024-01-04] MEDS: PROTONIX IV 40 MG IV (20:26)
[2024-01-04] MEDS: NSS (PRESERVATIVE FREE) 10 ML IV (20:27)
[2024-01-04] MEDS: SOLU-CORTEF 25 MG IV (20:27)
[2024-01-05] VITALS (12 sets, daily range): BP systolic 119–153; BP diastolic 59–98
--- NOTE | 2024-01-05 02:06 | PTCARENOTE ---
Pt received at beginning of shift resting in bed with family at bedside. AAOx3. Slightly anxious/flat affect. [place] sump to LIS brown liquid in collection container. Pt's only c/o pain is to throat from NGT. Pt agreeable to Chloraseptic Oil Trough. Steven
RAPHAEL TT'd and made aware. Concern for pt being allergic to Sulfa products. Pt still requesting Chloraseptic Oil Trough. Pt had minimal relief with spray. Pt then requesting Ofirmev. Steven LIM TT'd and no further orders received. Continues on 2L NC POX
95% VSS. Afebrile. SR on CM. Ileostomy with small amount brown liquid in collection bag. Recent surgical midline abdominal incision with jessica intact. EYEDOTTER. IVF's infusing as ordered. Stage one observed on sacrum. Wound care completed and
documented. Rest of assessment as documented. Call shah remains within reach. Will continue to monitor.
[2024-01-05] MEDS: NSS 1000 IV ×3 (02:54→21:51)
[2024-01-05] MEDS: CHLORASEPTIC/SORE THROAT SPRAY 1 SPRAY PO (02:55)
[2024-01-05 04:44] LABS: Hematocrit 24.8 % (37.0-47.0); Hemoglobin 8.6 g/dL (12.0-16.0); Mean Corp Hgb Conc. 34.7 g/dL (33.0-37.0); Mean Corpuscular Hgb 33.5 pg (27.0-31.0); Mean Corpuscular Volume 96.5 fL (81.0-99.0); Mean Platelet Volume 9.9 fL (7.4-10.4); Platelet Count 277 10^3/uL (130-400); Red Blood Cell Count 2.57 10^6/uL (4.20-5.40); Red Cell Dist. Width 18.7 % (11.5-14.5); White Blood Cell Count 25.9 10^3/uL (4.8-10.8)
[2024-01-05] MEDS: UNASYN IV ×3 (04:58→17:15)
[2024-01-05 05:12] LABS: ALT (SGPT) 37 U/L (0-35); AST (SGOT) 46 U/L (14-36); Albumin 2.2 g/dl (3.5-5.0); Alkaline Phosphatase 266 U/L (38-126); Blood Urea Nitrogen 21 mg/dl (7-17); Calcium 7.8 mg/dl (8.4-10.2); Carbon Dioxide 29 mmol/L (22-30); Chloride 98 mmol/L (98-107); Estimated Creatinine Clearance 43 ml/min; Glucose 102 mg/dl (70-99); Potassium 3.7 mmol/L (3.5-5.1); Sodium 127 mmol/L (135-145); Total Protein 4.4 g/dl (6.3-8.2); eGFR > 60.00
[2024-01-05] MEDS: OFIRMEV 100 IV ×3 (06:40→18:48)
--- NOTE | 2024-01-05 06:50 | W.PN.HOSP.TC ---
Today's Communication/Plan
-
Continues on NG tube suction
Fluid management with IV fluids
Persisting hyponatremia/may need TPN imminently
With persisting leukocytosis presumably relation to continued steroid management/need to have e ID input continue present course of Unasyn through January 10
Assessment / Plan
Assessment / Plan
83-year-old female who was just discharged from this facility yesterday after she had undergone a extended inpatient admission in relation to presentation recent on 25 December with mesenteric ischemia secondary to her protracted period of constipation
and retained stool causing necrosis and eventual exploratory laparotomy with total abdominal colectomy and end end ileostomy being performed. Her stay was complicated by recurrent episodes of rapid ventricular response atrial fibrillation being off
her usual dosage of diltiazem p.o. controlled with diltiazem IV also was noted to be bacteremic with Enterococcus and to complete IV Unasyn therapy through 10 January. After overnight stay in [facility] she developed emesis with mild distention and
again vomited this morning although was not preceded by nausea it was described as being bloody and 'just came out of her'. She is continue to have ileostomy functioning throughout and tolerated her morning meal this morning. Pertinent laboratory
profile in this morning noted further elevation in leukocytosis has been noted to be trending down at time of discharge now up to 25,000 she remains in a sinus rhythm with stable blood pressure and stable pulse ox of 98% on room air. Chronic
medical problems include atrial fibrillation for which she was placed back on Eliquis 2 days prior to her discharge from the most recent admission and she is back on her usual dosage of 120 mg of diltiazem for rate control and remaining in sinus
rhythm. She was placed on a daily dosage of prednisone with the thoughts of eventually further tapered to her usual every [address] hour schedule.
A subsequent CT of the abdomen pelvis shows a recurrent small bowel obstruction with a transition noted in the left lower quadrant but difficult to isolate. There is thickening of the decompressed loops of the small bowel extending to the
ileostomy there is also fluid described in the abdomen and pelvis. And there is bilateral pleural effusion presumed in relation to compressive atelectasis bilaterally there is third spacing of fluid throughout the soft tissues also noteworthy.
Recurrent small bowel obstruction
-Status post colectomy for necrotic bowel after period of obstipation constipation/end ileostomy
-NG tube to suction
-IV fluids to continue while n.p.o. and NG tube in
-Colorectal surgery consultation
-Monitor status of ileostomy and function
-Wound care/ostomy
-Given extended course of diminished alimentation albuminemia and edema may need TPN
Bilateral pleural effusion/peripheral edema
-Presumed in combination of compressive atelectasis and hypoalbuminemia
-Encourage spirometry
-Venous Doppler was negative for DVT
Enterococcal bacteremia
-Continue present course of Unasyn through 10 January per ID
-Should leukocytosis continue unabated consider infectious disease consultation input
-Subsequent blood cultures have proved negative and has been afebrile
Paroxysmal atrial fibrillation
-Recently manifested with RVR in the absence of her usual dose of diltiazem with good results with IV diltiazem in the short-term
-Watch for recurrence of RVR while off p.o. diltiazem
-As needed metoprolol IV
-Eliquis will again be held/with question of GI bleed /heparin subcu DVT prophylaxis
-Presents with stable sinus rhythm now
Leukocytosis
-Multifactorial from ongoing steroid management and also acute process of recurrent small bowel obstruction
Hematemesis
-Unclear if in relation to small bowel obstruction itself or or another upper GI source
-Will be placed on twice daily PPI
-Hemodynamically stable presently
Polymyalgia rheumatica by history
-Steroid-dependent and had been undergoing steroid taper to her usual dosage of prednisone every 48
-Will place on hydrocortisone IV 25 mg by every 12 presently
Hypothyroidism
-Will defer transition to IV levothyroxine unless protracted period of need for NG tube suction and lack of oral intake and then transition to IV if necessary
DVT prophylaxis only with SCDs/heparin subcu
Full CODE STATUS
Anticipated Discharge: > 48 hours
Subjective/Interval History
-
Date of Service: January 05, 2024
Was finally able to get the NG tube been her only complaint is some throat pain asking for IV Tylenol which has been ordered. No evidence of any desaturation and remains in sinus rhythm on monitor. Moderate output through NG tube after insertion
dark liquid return
Objective Data
-
Labs:
Laboratory Results
01/04/24 01/05/24
18:30 04:27
WBC 25.9 H
Hgb 8.6 L
Hct 24.8 L
Plt Count 277 D
PT 14.7 H
INR 1.17
APTT 25.2
Sodium 127 L
Potassium 3.7
Chloride 98
Carbon Dioxide 29
BUN 21 H
Creatinine 0.8
Glucose 102 H
Calcium 7.8 L
Total Bilirubin 1.0
AST 46 H
ALT 37 H
Alkaline Phosphatase 266 H
Vital Signs:
Vital Signs
Temp Pulse Resp BP Pulse Ox
98.1 F 79 14 137/63 96
01/05/24 03:40 01/05/24 06:00 01/05/24 06:00 01/05/24 06:00 01/05/24 06:00
I&O
01/03/24 01/04/24 01/05/24
06:59 06:59 06:59
Intake Total 1460 / 1460
Output Total 1250 / 1250
Balance 210 / 210
Review of Systems
-
History Source: Patient and Family
EENT: Reports No Symptoms Reported
Respiratory: Reports No Symptoms
Cardiac: Reports No Symptoms
Abdomen/GI: Reports Nausea, Vomiting and Pain
Physical Exam
-
General: Appears Chronically Ill
HEENT: Normocephalic
Respiratory: Clear to Auscultation
Cardiac: Regular Rhythm
GI: Soft and Ostomy (Minor liquid output since arrival)
Genito-urinary: No Costovertebral Tender
Musculoskeletal: Edema, Right Lower Extrem and Edema, Left Lower Extrem
Neuro: Awake, Alert and Oriented
Data Reviewed
-
Total Time Spent with Patient (in minutes): 56
Diagnostic Radiology: Report Reviewed by me (Mild bilateral pleural effusions on chest x-ray and CT)
CT Scan: Report Reviewed by me (Reviewed results)
Labs: Labs Reviewed by me (Persisting leukocytosis of 26,000/sodium was 127 from 128/LFTs stable from prior)
[2024-01-05] MEDS: SOLU-CORTEF 25 MG IV ×2 (09:13→21:38)
[2024-01-05] MEDS: HEPARIN 5000 UNITS SC ×2 (09:14→21:35)
[2024-01-05] MEDS: NSS (PRESERVATIVE FREE) 10 ML IV ×2 (09:14→21:38)
[2024-01-05] MEDS: PROTONIX IV 40 MG IV ×2 (09:14→21:38)
--- NOTE | 2024-01-05 09:26 | CON.ID ---
Consultation
-
Date/Time Consultation Requested: January 05, 2024 0703
Date/Time Consultation Performed: January 05, 2024 0930
Requesting Provider: Dr. Kartik Valero
Performing Provider: Dr. Yashira Kaufman
Reason for Consultation: Readmitted from [facility] with leukocytosis
Chief Complaint / Past History
Chief Complaint
Vomiting
History of Present Illness
83-year-old female with atrial fibrillation, PMR on steroids, who was recently hospitalized from December 25 2 December for with she presented with ischemic bowel due to extended period of constipation, Enterococcus faecalis bacteremia, December 26 underwent
total colectomy with ileostomy. Hospital course complicated by atrial fibrillation with RVR. As for the bacteremia, infectious disease recommend to complete a 14-day course of IV Unasyn until January 11, 2024. The leukocytosis was deemed due to
steroid use. Patient was discharged to [facility] on January 02. However she was sent to the ER on January 03 due to hematemesis x 2. Also white count significantly increased from 17.8/25. No fevers. CAT scan showed bowel obstruction. She was
readmitted to the hospital 01/03. NG tube placed. Today patient is complaining about the NG tube which is uncomfortable. Otherwise the nausea has resolved. No abdominal pain. No cough.
Past History
Additional Past Medical History:
Atrial fibrillation s/p ablation
Polymyalgia rheumatica on steroids
HTN
hypothyroidism
Dyslipidemia
Sciatica
Lumbar spinal stenosis
Trigeminal neuralgia
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
Appendectomy
Right hip hemiarthroplasty
Allergy History:
amlodipine Allergy (Verified 12/24/23 06:30)
Nausea
doxycycline Allergy (Verified 12/24/23 06:30)
Hives
hydrocodone [From Vicodin] Allergy (Verified 12/27/23 17:56)
Vomiting
metoprolol [From Lopressor] Allergy (Verified 12/24/23 06:30)
Dizzy
Sulfa (Sulfonamide Antibiotics) Allergy (Verified 12/24/23 06:30)
Hives
sulfamethoxazole [From Bactrim] Allergy (Verified 12/24/23 06:30)
Rash
trimethoprim [From Bactrim] Allergy (Verified 12/24/23 06:30)
Rash
Medications Reviewed: Yes
Current Antibiotics:
Unasyn
Social History
Tobacco: Former Smoker
Alcohol: None
Drug: None
Personal:
Family History
Family History: Not Pertinent
Review of Systems
Review of Systems
General: Change in Appetite; Negative Fever or Chills
HEENT: Negative Headache or Pharyngitis
Cardiovascular: Negative Chest Pain
Respiratory: Negative Dyspnea or Cough
Genital / Urological: Negative Dysuria or Flank Pain
Endocrine: Weakness
Skin / Hair / Nails: Negative Rash
Neurological: Negative Headache or Dizziness
All systems: All other systems were reviewed and were negative
Vital Signs
Temp Pulse Resp BP Pulse Ox
98.8 F 79 14 137/63 96
01/05/24 07:30 01/05/24 06:00 01/05/24 06:00 01/05/24 06:00 01/05/24 06:00
Physical Exam
Physical Exam
Constitutional: No Acute Distress
Eyes: No Conjunctival Hemorrhage and Sclera Anicteric
Cardiovascular: Regular Rate and S1/S2
Pulmonary: Other (Decreased BS at bases)
Gastrointestinal: Soft, Non Tender, Decreased Bowel Sounds and Other (ileostomy no stool)
Genito-Urinary: Negative CVA Tenderness
Extremities: Edema (BLE 1+)
Neurological: AO x 3
Lines: Other (Midline RUE intact)
Lab / Diagnostic Study Results
01/05/24 04:27
01/05/24 04:27
Abs Immat Gran (auto) 1.4 10^3/uL (0-0.05) H 01/04/24 09:46
Absolute Neuts (auto) 22.2 10^3/uL (1.4-6.5) H 01/04/24 09:46
Absolute Lymphs (auto) 0.8 10^3/uL (1.2-3.4) L 01/04/24 09:46
Absolute Monos (auto) 0.7 10^3/uL (0.1-0.6) H 01/04/24 09:46
Absolute Basos (auto) 0.1 10^3/uL (0-0.2) 01/04/24 09:46
Immature Gran % 5.6 % (0-0.5) H 01/04/24 09:46
Neutrophils % 88.0 % (42.2-75.2) H 01/04/24 09:46
Lymphocytes % 3.0 % (20.5-51.1) L 01/04/24 09:46
Monocytes % 2.9 % (1.7-9.3) 01/04/24 09:46
Eosinophils % 0.2 % (0-6) 01/04/24 09:46
Basophils % 0.3 % (0-2) 01/04/24 09:46
PT 14.7 Sec (11.4-14.6) H 01/04/24 18:30
INR 1.17 01/04/24 18:30
Microbiology Results
01/04/24 CXR: Nasogastric tube in place terminating within a moderate-sized hiatal hernia. Small bilateral pleural effusions with adjacent mild compressive subsegmental atelectasis in the lower lobes of both lungs.
01/04/24 CT a/p: There is a small bowel obstruction. The point of transition is in the left lower quadrant but difficult to isolate. There is thickening of the decompressed loops of small bowel extending to the ileostomy.
There is fluid in the abdomen and pelvis which may be related to recent surgery, versus ascites.
01/04/24 LE venous doppler: no DVT
Assessment / Plan
# Recent Enterococcal bacteremia due to ischemic bowel
- cleared as of 12/27
- Continue Unasyn through 01/11/24 to complete 2 weeks course.
# Acute post-op small bowel obstruction
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
- Conservative management with NGT decompression at this time per Colorectal
#Leukocytosis trending up
-Multifactorial including acute SBO as well as increase in steroid
- Monitor for now
#Other:
Renal insufficiency
Atrial fibrillation
HTN
Dyslipidemia
Sciatica
Lumbar spinal stenosis
PMR
Trigeminal neuralgia
[2024-01-05] MEDS: LOPRESSOR 5 MG IV ×2 (12:12→17:16)
--- NOTE | 2024-01-05 12:26 | PTCARENOTE ---
Pt rec'd from previous RN 07:15. Plan discussed with patient and daughter, pt requesting to get oob. Orders for activity as tolerated rec'd from attending Dr. Valero. Pt assisted oob to chair with RW and standby assistance, seated on air cushion
and Q2T maintained while oob due to sore area on sacrum. Foam dressing remains CDI. Pt continues to c/o 8/10 pain from NGT and anticipating next dose of Ofirmev at this time. Orders and meds as documented. Family at bedside. Will cont to monitor.
--- NOTE | 2024-01-05 12:30 | W.PN.GS2 ---
Addendum entered and electronically signed by Edgar Rocha MD 01/05/24 13:00:
Patient seen and examined with surgical HOSPITALIST PROGRAM DIRECTOR. Agree with documented progress note.
Family at bedside
Patient complains of NG tube discomfort and amount of drainage coming from NG tube
Abdominal pain discomfort/improved
No further nausea or vomiting
AFVSS
NAD, AAOx3
ABD: Softly protuberant, mild tenderness on palpation but no rebound rigidity or guarding. Midline incision with jessica, no erythema, no drainage, no seromas. Right-sided ostomy with appliance in place. Minimal liquid stool, not much flatus.
CT abdomen/pelvis imaging personally reviewed as well as radiologist report. Findings highly suggestive of early postoperative small bowel obstruction without discrete transition point easily identified but appears to be likely in the left lower
quadrant. Few small residual bubbles of free air related to recent laparotomy. Simple appearing free fluid in the right paracolic gutter region, perihepatic and pelvis, no rim enhancement, no air bubbles within it to suggest abscess or infectious
component.
Assessment/plan: 83-year-old female postop day 9 TAC and end ileostomy presenting with early postoperative small bowel obstruction
No evidence of bowel compromise or threat, no peritonitis, clinically stable.
NG tube decompression
IV fluid hydration and closely follow I's and O's given substantial NG tube outputs -increased normal saline to 120 mL an hour
Continue to follow BMP for electrolyte abnormalities-hyponatremia, normal CO2/no acidosis
Repeat CBC tomorrow a.m.
Will follow-up
Original Note:
Today's Communication / Plan
-
C/W NGT to [facility]
Assessment / Plan
-
83 yo female who is now POD #9 ex lap with total abdominal colectomy and end ileostomy creation for ischemia who was d/c'd to inpatient rehab on 01/02 but presents again with nausea and vomiting at rehab center. Was initially tolerating diet with
+stool from stoma. CT imaging reviewed with concern for small bowel obstruction likely early adhesions. No abscess.
NGT placed with relief of symptoms, bilious outputs noted
Stoma with minimal liquid stool noted
AFVSS
WBC remains trending up, ID following with us
--C/W NGT to [facility], NPO except ice chips
--Will follow for nonoperatively for improvement at this time with bowel rest/decompression
--ABX as per ID
--Analgesics prn, avoid narcotics
--OOB/Ambulate as able
--VTE ppx with heparin sq
Subjective Data
-
Date of Service: January 05, 2024
Patient seen and examined at bedside wiht Dr. Rocha. Family present. Denies n/v. Denies pain. Notes her NGT has been putting out more bile this am.
Objective Data
-
Intake and Output
01/04/24 01/05/24 01/06/24
06:59 06:59 06:59
Intake Total 1460 / 1460
Output Total 1250 / 1250 200 / 200
Balance 210 / 210 -200 / -200
Intake:
IV fluids (Total) 1100 / 1100
IV piggybacks 360 / 360
Amount instilled into GI Tube ( 0 / 0
Total)
[place] Sump 0 / 0
Output:
Gastrointestinal tube output ( 350 / 350
Total)
[place] Sump 350 / 350
Urine, Voided 900 / 900 200 / 200
Vital Signs
Temp Pulse Resp BP Pulse Ox
98.8 F 82 14 126/83 96
01/05/24 07:30 01/05/24 12:12 01/05/24 06:00 01/05/24 12:12 01/05/24 06:00
Lab Results
01/05/24 04:27
01/05/24 04:27
Calcium 7.8 mg/dl (8.4-10.2) L 01/05/24 04:
Total Bilirubin 1.0 mg/dl (0.2-1.3) 01/05/24 04:
AST 46 U/L (14-36) H 01/05/24 04:
ALT 37 U/L (0-35) H 01/05/24 04:
Alkaline Phosphatase 266 U/L (38-126) H 01/05/24 04:
Total Protein 4.4 g/dl (6.3-8.2) L 01/05/24 04:
Albumin 2.2 g/dl (3.5-5.0) L 01/05/24 04:
Physical Exam
-
NAD, oob to chair
ABD soft, mild distention, nontender. NGT with bilious outputs
Incision well approximated with intact jessica, no erythema or drainage
--- NOTE | 2024-01-05 14:20 | PTCARENOTE ---
Pt cleared to have ice chips per surgery, pt does report much pain relief in throat from ice chips. Stated 'these ice chips taste like a million bucks.' Assisted to void in bedside commode, and back to bed at 13:00. remains at bedside.
[2024-01-06] VITALS (12 sets, daily range): BP systolic 116–160; BP diastolic 69–100; BMI 23.0
[2024-01-06] MEDS: LOPRESSOR 5 MG IV ×4 (00:11→17:03)
[2024-01-06] MEDS: UNASYN IV ×4 (00:12→17:33)
[2024-01-06] MEDS: OFIRMEV 100 IV ×2 (01:38→09:14)
--- NOTE | 2024-01-06 04:23 | PTCARENOTE ---
Pt resting well overnight but not much sleep. VSS/afebrile. SR on CM rate 70's. Ofirmev given x 1 for throat discomfort with good relief. Using BSC/bedpan overnight to void. Ileostomy with increased output liquid brown. Tolerating NGT much better,
able to move without wincing or grabbing at tube. NGT output brown liquid approx 200ml so far. Tube irrigated and flushed as ordered. C/O discomfort in legs while SCDs on. Removed for break since Heparin SQ initiated. IVF's continue infusing as
ordered. Maintained on Q2hr turns. No change from previous assessment. Call shah remains within reach. Will continue to monitor.
[2024-01-06 05:35] LABS: Hematocrit 23.8 % (37.0-47.0); Hemoglobin 8.1 g/dL (12.0-16.0); Mean Corpuscular Hgb 33.8 pg (27.0-31.0); Mean Corpuscular Volume 99.2 fL (81.0-99.0); Mean Platelet Volume 10.2 fL (7.4-10.4); Platelet Count 274 10^3/uL (130-400); Red Cell Dist. Width 18.4 % (11.5-14.5); White Blood Cell Count 26.2 10^3/uL (4.8-10.8)
[2024-01-06 05:57] LABS: Blood Urea Nitrogen 14 mg/dl (7-17); Calcium 7.4 mg/dl (8.4-10.2); Carbon Dioxide 25 mmol/L (22-30); Chloride 98 mmol/L (98-107); Estimated Creatinine Clearance 49 ml/min; Glucose 65 mg/dl (70-99); Potassium 3.3 mmol/L (3.5-5.1); Sodium 126 mmol/L (135-145); eGFR > 60.00
[2024-01-06] MEDS: NSS 1000 IV (06:20)
[2024-01-06] MEDS: DEXTROSE 50% SYRINGE 12.5 GRAMS IV (06:20)
--- NOTE | 2024-01-06 06:33 | PTCARENOTE ---
AM labs resulted. Glucose 65. Na 126. K+ 3.3. [place] LIM TT'd and made aware. Order entered for 1/2 amp Dextrose. Given and 15 minute recheck of accucheck 118.
[2024-01-06 06:47] LABS: Glucose - Point of Care 118 mg/dl (70-99)
--- NOTE | 2024-01-06 06:53 | W.PN.HOSP.TC ---
Today's Communication/Plan
-
Replete potassium
Continue to monitor BMP with continued hyponatremia that is worsening in the absence of her supplementations orally will consult nephrology
Continue IV Lopressor to hopefully maintain in sinus rhythm and then resume diltiazem p.o. once NG tube out
Started on IV levothyroxine
Renew Ofirmev
Increase activity
NG tube management and disposition as per colorectal surgery
Assessment / Plan
Assessment / Plan
83-year-old female who was just discharged from this facility yesterday after she had undergone a extended inpatient admission in relation to presentation recent on 25 December with mesenteric ischemia secondary to her protracted period of constipation
and retained stool causing necrosis and eventual exploratory laparotomy with total abdominal colectomy and end end ileostomy being performed. Her stay was complicated by recurrent episodes of rapid ventricular response atrial fibrillation being off
her usual dosage of diltiazem p.o. controlled with diltiazem IV also was noted to be bacteremic with Enterococcus and to complete IV Unasyn therapy through 10 January. After overnight stay in [place] [facility] she developed emesis with mild distention and
again vomited this morning although was not preceded by nausea it was described as being bloody and 'just came out of her'. She is continue to have ileostomy functioning throughout and tolerated her morning meal this morning. Pertinent laboratory
profile in this morning noted further elevation in leukocytosis has been noted to be trending down at time of discharge now up to 25,000 she remains in a sinus rhythm with stable blood pressure and stable pulse ox of 98% on room air. Chronic
medical problems include atrial fibrillation for which she was placed back on Eliquis 2 days prior to her discharge from the most recent admission and she is back on her usual dosage of 120 mg of diltiazem for rate control and remaining in sinus
rhythm. She was placed on a daily dosage of prednisone with the thoughts of eventually further tapered to her usual every [address] hour schedule.
A subsequent CT of the abdomen pelvis shows a recurrent small bowel obstruction with a transition noted in the left lower quadrant but difficult to isolate. There is thickening of the decompressed loops of the small bowel extending to the
ileostomy there is also fluid described in the abdomen and pelvis. And there is bilateral pleural effusion presumed in relation to compressive atelectasis bilaterally there is third spacing of fluid throughout the soft tissues also noteworthy.
Recurrent small bowel obstruction
-Status post colectomy for necrotic bowel after period of obstipation constipation/end ileostomy
-NG tube to suction
-IV fluids to continue while n.p.o. and NG tube in
-Colorectal surgery consultation
-Monitor status of ileostomy and function
-Wound care/ostomy
-Given extended course of diminished alimentation albuminemia and edema may need TPN
Bilateral pleural effusion/peripheral edema
-Presumed in combination of compressive atelectasis and hypoalbuminemia
-Encourage spirometry
-Venous Doppler was negative for DVT
Enterococcal bacteremia
-Continue present course of Unasyn through 10 January per ID
-As leukocytosis continue unabated consider infectious disease consultation input
-Subsequent blood cultures have proved negative and has been afebrile
Paroxysmal atrial fibrillation
-Recently manifested with RVR in the absence of her usual dose of diltiazem with good results with IV diltiazem in the short-term
-Watch for recurrence of RVR while off p.o. diltiazem
-Scheduled metoprolol IV while NG tube in
-Eliquis will again be held/with question of GI bleed /heparin subcu DVT prophylaxis
-Presents with stable sinus rhythm now
Leukocytosis
-Multifactorial from ongoing steroid management and also acute process of recurrent small bowel obstruction
-ID following
Hyponatremia
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
-With sodium trending down again/will get nephrology input again
Hematemesis
-Unclear if in relation to small bowel obstruction itself or or another upper GI source
-Will be placed on twice daily PPI
-Hemodynamically stable presently
Polymyalgia rheumatica by history
-Steroid-dependent and had been undergoing steroid taper to her usual dosage of prednisone every 48
-Original plan as outpatient was to taper off steroids completely but presented on prednisone every 48 hours 10 mg
-Will place on hydrocortisone IV 25 mg every 12 hours for now tapered to single dose daily continue wean and taper once NG tube out
Hypothyroidism
-Since remains an NG tube placement/will need to place on IV levothyroxine
DVT prophylaxis only with SCDs/heparin subcu
Full CODE STATUS
Anticipated Discharge: 24 - 48 hours
Subjective/Interval History
-
Date of Service: January 06, 2024
Restless night number sleep some decrease in NG tube output and increasing ileostomy output. Continued abdominal pain, she is worried she has not received her Synthroid dosing since she NG tube). Blood sugar was diminished this morning and got a
an amp of D50
Objective Data
-
Labs:
Laboratory Results
01/06/24
04:15
WBC 26.2 H
Hgb 8.1 L
Hct 23.8 L
Plt Count 274
Sodium 126 L
Potassium 3.3 L
Chloride 98
Carbon Dioxide 25
BUN 14
Creatinine 0.7
Glucose 65 L
Calcium 7.4 L
Vital Signs:
Vital Signs
Temp Pulse Resp BP Pulse Ox
97.4 F 75 13 160/89 99
01/06/24 03:33 01/06/24 06:21 01/06/24 06:00 01/06/24 06:21 01/06/24 04:00
I&O
01/04/24 01/05/24 01/06/24
06:59 06:59 06:59
Intake Total 1460 / 1460 3260 / 3260
Output Total 1250 / 1250 1800 / 1800
Balance 210 / 210 1460 / 1460
Review of Systems
-
History Source: Patient and Family
Constitutional: Reports No Appetite
Cardiac: Reports No Symptoms
Abdomen/GI: Reports Abdominal Pain
Physical Exam
-
General: Appears Chronically Ill
HEENT: Normocephalic
Respiratory: Clear to Auscultation
Cardiac: Regular Rhythm and S1/S2 (Sinus rhythm remains on monitor)
GI: Soft, Tender and Ostomy (Liquid return)
Musculoskeletal: Edema, Right Lower Extrem and Edema, Left Lower Extrem
Neuro: Awake, Alert, Oriented and AO x 3
Data Reviewed
-
Total Time Spent with Patient (in minutes): 67
Labs: Labs Reviewed by me (Sodium continues to downtrend to 126, potassium 3.3, white count remains elevated 26,000.)
[2024-01-06] MEDS: KCL 160 MEQ IV (07:20)
[2024-01-06 08:45] LABS: Glucose - Point of Care 76 mg/dl (70-99)
--- NOTE | 2024-01-06 08:55 | W.PN.ID1 ---
Date of Service
Date of Service: January 06, 2024
Today's Communication
Check blood cx's x 2.
Assessment / Plan
# Recent Enterococcal bacteremia due to ischemic bowel
- cleared as of 12/27
- Continue Unasyn through 01/11/24 to complete 2 weeks course.
# Acute post-op small bowel obstruction
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
- Conservative management with NGT decompression at this time per Colorectal
#Leukocytosis trending up
-Suspect due to acute SBO
- Steroid dose decreased today as per hospitalist
- Check bcx's x 2
- Follow wbc.
#Other:
Renal insufficiency
Atrial fibrillation
HTN
Dyslipidemia
Sciatica
Lumbar spinal stenosis
PMR
Trigeminal neuralgia
Chief Complaint
-: Leukocytosis
Subjective / Review of Systems
Tolerating NGT better. No abdominal pain.
Vital Signs / Physical Exam
Vital Signs
Vital Signs
Temp Pulse Resp BP Pulse Ox
97.6 F 75 13 160/89 99
01/06/24 08:32 01/06/24 06:21 01/06/24 06:00 01/06/24 06:21 01/06/24 04:00
Physical Exam
Constitutional: No Acute Distress and Comfortable
Cardiovascular: Regular Rate and S1/S2
Pulmonary: Other (decreased BS)
Gastrointestinal: Soft, Non Tender, Decreased Bowel Sounds and Other (ileostomy maharaj loose stool)
Neurological: AO x 3
Objective Data
Lab Data
Lab Results
01/06/24 04:15
01/06/24 04:15
PT 14.7 Sec (11.4-14.6) H 01/04/24 18:30
INR 1.17 01/04/24 18:30
APTT 25.2 Sec (23.4-35.0) 01/04/24 18:30
Estimated Creat Clear 49 ml/min 01/06/24 04:15
Total Bilirubin 1.0 mg/dl (0.2-1.3) 01/05/24 04:27
AST 46 U/L (14-36) H 01/05/24 04:27
ALT 37 U/L (0-35) H 01/05/24 04:27
Alkaline Phosphatase 266 U/L (38-126) H 01/05/24 04:27
Most recent labs reviewed.
01/04/24 CXR: Nasogastric tube in place terminating within a moderate-sized hiatal hernia. Small bilateral pleural effusions with adjacent mild compressive subsegmental atelectasis in the lower lobes of both lungs.
01/04/24 CT a/p: There is a small bowel obstruction. The point of transition is in the left lower quadrant but difficult to isolate. There is thickening of the decompressed loops of small bowel extending to the ileostomy.
There is fluid in the abdomen and pelvis which may be related to recent surgery, versus ascites.
01/04/24 LE venous doppler: no DVT
--- NOTE | 2024-01-06 09:11 | PTCARENOTE ---
orders rec'd for blood cultures x2, will draw now.
[2024-01-06] MEDS: NSS (PRESERVATIVE FREE) 10 ML IV ×2 (09:12→20:14)
[2024-01-06] MEDS: HEPARIN 5000 UNITS SC ×2 (09:12→20:14)
[2024-01-06] MEDS: SOLU-CORTEF 25 MG IV (09:13)
[2024-01-06] MEDS: PROTONIX IV 40 MG IV ×2 (09:13→20:14)
[2024-01-06 10:58] LABS: Glucose - Point of Care 75 mg/dl (70-99)
--- NOTE | 2024-01-06 12:59 | W.PN.GS2 ---
Addendum entered and electronically signed by Edgar Rocha MD 01/06/24 13:47:
Patient seen and examined with surgical nurse practitioner. Agree with documented progress note.
Patient's daughter and at bedside.
Patient states she is feeling better than upon initial evaluation and admission. Still complains of NG tube but tolerating it.
No nausea, no vomiting, no worsening abdominal pains.
AF VSS
ABD: Soft, less distended, nontender on palpation. Right lower quadrant ileostomy appliance full of liquid stool and air
NG tube remains in place with bilious drainage
WBC 26.2 from 25
Assessment/plan: 83-year-old female POD #10 ex lap, TAC and end ileostomy secondary to ischemia readmitted with what appears to be partial or resolving small bowel obstruction.
Significant ileostomy outputs starting this a.m. and NG tube output is less but still bilious
Recommend continued NG tube decompression and IV fluid hydration awaiting further clinical confirmation/signs of adequate GI recovery to allow removal of NG tube hopefully in the next 24 hours
Continue to closely monitor leukocytosis which may be reactive or related to steroids -repeat blood cultures obtained by ID, continues on Unasyn
Original Note:
Today's Communication / Plan
-
Continue NGT/IVF/Bowel rest
Assessment / Plan
-
83 yo female who is now POD #10 ex lap with total abdominal colectomy and end ileostomy creation for ischemia who was d/c'd to inpatient rehab on 01/02 but presents again with nausea and vomiting at rehab center. Was initially tolerating diet with
+stool from stoma. CT imaging on presentation highly suggestive of early postoperative small bowel obstruction without discrete transition point easily identified but appears to be likely in the left lower quadrant. Few small residual bubbles of
free air related to recent laparotomy. Simple appearing free fluid in the right paracolic gutter region, perihepatic and pelvis, no rim enhancement, no air bubbles within it to suggest abscess or infectious component.
AFVSS
Leukocytosis trending up
GI function improving with increasing stool/gas outputs noted from stoma
Hyponatremia, hypokalemia and hypoglycemia on this am's labs. K replaced
--C/W NGT to LIWS, NPO except ice chips
--Will follow for nonoperatively for improvement at this time with bowel rest/decompression
--ABX as per ID
--Will send UA/reflex cx
--Analgesics prn, avoid narcotics
--OOB/Ambulate as able
--c/w IVF, change to d5/ns with kcl
--VTE ppx with heparin sq
Subjective Data
-
Date of Service: January 06, 2024
Patient seen and examined at bedside with Dr. Rocha. Family present, questions addressed. She c/o some discomfort from NGT but tolerable. Denies abdominal pain. Denies sweats/chills
Objective Data
-
Intake and Output
01/05/24 01/06/24/05/24
06:59 06:59 06:59
Intake Total 1460 / 1460 3320 / 3320 30 / 30
Output Total 1250 / 1250 1800 / 1800 550 / 550
Balance 210 / 210 1520 / 1520 -520 / -520
Intake:
IV fluids (Total) 1100 / 1100 2420 / 2420
IV piggybacks 360 / 360 780 / 780
Amount instilled into GI Tube ( 0 / 0 120 / 120 30 / 30
Total)
Waller Sump 0 / 0 120 / 120 30 / 30
Output:
Liquid stool amount 600 / 600 550 / 550
Ileostomy 600 / 600 550 / 550
Gastrointestinal tube output ( 350 / 350 400 / 400
Total)
Waller Sump 350 / 350 400 / 400
Urine, Voided 900 / 900 800 / 800
Other:
Number of approximated MODERATE 1 1
amounts of urine
Number of approximated LARGE 1
amounts of urine
Vital Signs
Temp Pulse Resp BP Pulse Ox
97.6 F 71 23 116/71 100
01/06/24 11:31 01/06/24 12:00 01/06/24 12:00 01/06/24 12:00 01/06/24 12:38
Lab Results
01/06/24 04:15
01/06/24 04:15
Calcium 7.4 mg/dl (8.4-10.2) L 01/06/24 04:15
Total Bilirubin 1.0 mg/dl (0.2-1.3) 01/05/24 04:27
AST 46 U/L (14-36) H 01/05/24 04:27
ALT 37 U/L (0-35) H 01/05/24 04:27
Alkaline Phosphatase 266 U/L (38-126) H 01/05/24 04:27
Total Protein 4.4 g/dl (6.3-8.2) L 01/05/24 04:27
Albumin 2.2 g/dl (3.5-5.0) L 01/05/24 04:27
Physical Exam
-
NAD, oob to chair
ABD soft, mild distention, nontender. NGT with bilious outputs. Stoma pink/viable with appliance full of liquid stool/flatus
Incision well approximated with intact jessica, no erythema or drainage
Generalized edema/third spacing
[2024-01-06] MEDS: KCL 1020 MEQ IV (13:43)
--- NOTE | 2024-01-06 14:09 | PTCARENOTE ---
Pt rang for RN complaining of feeling 'very tired'-assisted to bedside commode to obtain ordered urine specimen (voided 150 mls clear yellow urine), then back to bed. Increased edema to lower extremeties noted, upon assessment, abdomen, forearms and
under eyes also more swollen. Drs. Sun, Marylu, and Aj notified via TT, orders to hold fluids at this time pending nephrology assessment. VSS, BP 129/71, sat 98% on room air. Will continue to monitor.
[2024-01-06 14:22] LABS: Urine Albumin Negative (Neg - Trace); Urine Bilirubin Negative (Negative); Urine Character Clear (Clear); Urine Color Yellow; Urine Glucose Negative (Negative); Urine Ketone 1+ (Negative); Urine Leukocyte Negative (Negative); Urine Nitrite Negative (Negative); Urine Occult Blood Negative (Negative); Urine Urobilinogen 1+ (Neg - 1+); Urine pH 6.5 (5.0-9.0)
--- NOTE | 2024-01-06 15:30 | W.CON.NEPH ---
Consultation
-
Date/Time Consultation Requested: 01/06/24 0700
Date/Time Consultation Performed: 01/06/24 1530
Requesting Provider: Kartik Francisco
Performing Provider: Angie Bunn
Reason for Consultation: hyponatremia
Medical History
-
Chief Complaint: vomiting
History of Present Illness:
This is an 83-year-old female with hypertension on CCB monotherapy regimen as well as atrial fibrillation on Eliquis therapy, hypothyroidism on levothyroxine, who recently d/c on 01/02 after prolonged stay for mesenteric ischemia secondary to her
protracted period of constipation and retained stool causing necrosis and eventual exploratory laparotomy with total abdominal colectomy and end end ileostomy being performed on 12/26. Her stay was complicated by recurrent episodes of rapid
ventricular response atrial fibrillation being off her usual dosage of diltiazem p.o. controlled with diltiazem IV also was noted to be bacteremic with Enterococcus and to complete IV Unasyn therapy through 10 January. Nephrology saw the pt during
this admit and maintained hyponatremia with salt tab, FR. She also had hypokalemia and hypophosphatemia for which she took Neutraphos. After overnight stay in [facility] on 01/02 she developed emesis with mild distention and hematemesis. A subsequent
CT of the abdomen pelvis shows a recurrent small bowel obstruction with a transition noted in the left lower quadrant but difficult to isolate. She is now back on NG suction, ileostomy is functional. She remains on IVF since admit, per nurse noted
more edema today. Her sodium decreasing to 126 from 128 on admit. K is low today 3.3. Hence nephrology consulted for management of electrolytes. She offers no cp or sob. NO abd pain. has 500cc out put from ileostomy.
Past Medical History
Atrial Fibrillation, Hypertension, Hyperlipidemia, Hypothyroidism, Sciatica, L5 Spinal Stenosis, Right Femoral Neck Fracture status post right hip hemiarthroplasty, Nosebleed, Diverticulitis, Elevated Hepatic Transaminases, Trigeminal Neuralgia,
Appendectomy and Cardiac Ablation, colectomy, ileostomy
Social History
Tobacco: Former Smoker
Alcohol: None
Drug: None
Living: Alone
Family History
Family History: Not Pertinent
Allergies / Home Medications
Allergy/AdvReac Type Severity Reaction Status Date / Time
amlodipine Allergy Nausea Verified 12/24/23 06:30
doxycycline Allergy Hives Verified 12/24/23 06:30
hydrocodone [From Vicodin] Allergy Vomiting Verified 12/27/23 17:56
metoprolol [From Lopressor] Allergy Dizzy Verified 12/24/23 06:30
Sulfa (Sulfonamide Allergy Hives Verified 12/24/23 06:30
Antibiotics)
sulfamethoxazole Allergy Rash Verified 12/24/23 06:30
[From Bactrim]
trimethoprim [From Bactrim] Allergy Rash Verified 12/24/23 06:30
�Medication �Instructions �Recorded �Confirmed �Type
diltiazem HCl 120 mg 120 mg PO DAILY #30 caps 03/24/21 01/04/24 Rx
capsule,extended release 24 hr
gabapentin 300 mg capsule 300 mg PO DAILY #30 caps 03/24/21 01/04/24 Rx
apixaban 2.5 mg tablet (Eliquis) 2.5 mg PO BID Blood Clot 12/26/23 01/04/24 History
Prevention/Tx
levothyroxine 75 mcg tablet 75 mcg PO DAILY AT 0700 Thyroid 12/26/23 01/04/24 History
prednisone 20 mg tablet 10 mg PO Q48H Anti-Inflammatory 12/26/23 01/04/24 History
Ampicillin/Sulbactam 3 G [Unasyn] 240 mls/hr IV Q6H Infection 01/03/24 01/04/24 Rx
3 gm
multivitamin with folic acid 400 1 tab PO DAILY 01/03/24 01/04/24 History
mcg tablet (Tab-A-Taz)
nystatin 100,000 unit/mL oral 5 ml PO QID Infection #60 mL 01/03/24 01/04/24 Rx
suspension
pantoprazole 40 mg tablet,delayed 40 mg PO DAILY #14 tabs 01/03/24 01/04/24 Rx
release
potassium, sodium phosphates 280 1 packet PO DAILY Supplement #5 ea 01/03/24 01/04/24 Rx
mg-160 mg-250 mg oral powder
packet (Phosphorous Supplement)
prednisone 10 mg tablet 10 mg PO QPM #14 tabs 01/03/24 01/04/24 Rx
acetaminophen 500 mg tablet 1,000 mg PO Q8H mild pain 01/04/24 01/04/24 History
(Tylenol Extra Strength)
ondansetron HCl 4 mg tablet 4 mg PO Q8H PRN NAUSEA/VOMITING 01/04/24 01/04/24 History
therapeutic multivitamin 1 tab PO DAILY 01/04/24 01/04/24 History
Review of Systems
-
All complete 12 point ROS have been inquired and found negative other than stated in HPI
Physical Exam
Vital Signs
Vital Signs
Temp Pulse Resp BP Pulse Ox
97.6 F 72 15 129/71 100
01/06/24 11:31 01/06/24 14:00 01/06/24 14:00 01/06/24 14:00 01/06/24 12:38
Lab Results
WBC 26.2 10^3/uL (4.8-10.8) H 01/06/24 04:15
RBC 2.40 10^6/uL (4.20-5.40) L 01/06/24 04:15
Hgb 8.1 g/dL (12.0-16.0) L 01/06/24 04:15
Hct 23.8 % (37.0-47.0) L 01/06/24 04:15
Plt Count 274 10^3/uL (130-400) 01/06/24 04:15
Sodium 126 mmol/L (135-145) L 01/06/24 04:15
Potassium 3.3 mmol/L (3.5-5.1) L 01/06/24 04:15
Chloride 98 mmol/L (98-107) 01/06/24 04:15
Carbon Dioxide 25 mmol/L (22-30) 01/06/24 04:15
BUN 14 mg/dl (7-17) 01/06/24 04:15
Creatinine 0.7 mg/dL (0.6-1.0) 01/06/24 04:15
eGFR > 60.00 01/06/24 04:15
Glucose 65 mg/dl (70-99) L 01/06/24 04:15
Calcium 7.4 mg/dl (8.4-10.2) L 01/06/24 04:15
Xel-U-Fozdniibnhi Pept 2270 pg/ml 01/04/24 09:46
Albumin 2.2 g/dl (3.5-5.0) L 01/05/24 04:27
CT abd with contrast 01/03:
IMPRESSION:
1. There is a small bowel obstruction. The point of transition is in the left lower quadrant but difficult to isolate. There is thickening of the decompressed loops of small bowel extending to the ileostomy.
2. There is fluid in the abdomen and pelvis which may be related to recent surgery, versus ascites.
3. There are bilateral pleural effusions. There is compressive atelectasis bilaterally.
4. There is a moderate-sized hiatal hernia
5. There is third spacing of fluid in the soft tissues.
CXR /5:
IMPRESSION:
1. Nasogastric tube in place terminating within a moderate-sized hiatal hernia.
2. Small bilateral pleural effusions with adjacent mild compressive subsegmental atelectasis in the lower lobes of both lungs.
Physical Exam
General: Awake, Alert, Oriented, AOx3 and No Distress
HEENT: EOMI and Anicteric
Respiratory: Clear (anteriorly), Normal Excursion and Nonlabored Respirations
Cardiac: S1/S2 and Regular Rate/Rhythm
Abdomen: Soft, Nontender and Nondistended
Musculoskeletal: No Cyanosis and Edema (3+)
Skin: No Rash
Neuro: Nonfocal/Grossly Intact
Psych: Mood/afflect pleasant, Insight/judgement good and Appropriate
Assessment/Plan
-
IMP:
Recurrent small bowel obstruction-Status post colectomy for necrotic bowel after period of obstipation constipation/end ileostomy 12/26
Bilateral pleural effusion/peripheral edema
Enterococcal bacteremia
Paroxysmal atrial fibrillation
Leukocytosis
Hyponatremia
Hematemesis
Polymyalgia rheumatica by [id number]-Uasysms-ieflkzoro and had been undergoing steroid taper to her usual dosage of prednisone every 48
Hypothyroidism
HTN
Dyslipidemia
PLan:
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
She also seem to have hypervolemia with high BNP, pleural effusion on CXR on admit with normal renal function
suspect current worsening sodium likely multifactorial-GI loss, hypervolemia, SIADH
given that she is NPO, cont IVF but decrease rate
replace k, will give dose of lasix
diet per surg, trial of clamping NGT tomorrow noted
BP stable
edema is mostly dependant with hypoalbuminemia
monitor daily wts, labs
stable renal function
abx per ID
d/w pt and nursing
Data Reviewed
-
Labs: Labs Reviewed by me, Discussed with Nurse and Discussed with Patient
[2024-01-06] MEDS: LASIX 20 MG IV (17:01)
[2024-01-06] MEDS: LEVOTHROID 35 MCG IV (17:02)
[2024-01-06] MEDS: D5/0.9% with KCL 40 MEQ 1000 IV (17:02)
--- NOTE | 2024-01-06 18:16 | PTCARENOTE ---
Orders rec'd per nephrology for IVF at reduced rate, 20mg IV Lasix. Purewick placed for accurate I+O for HS as per pt request. Pt resting in bed at this time. VSS, no needs.
--- NOTE | 2024-01-06 20:00 | PTCARENOTE ---
Resumed care of pt laying in bed AAOx3. Pt slightly anxious, and reports just feeling overall tired. Emotional support provided. HR in the 70's in NSR with PVC's on the monitor. POX 97% on RA. Lungs clear. Right nare NGT in place to low intermittent
suction, flushed per protocol, brown liquid drainage noted. + bowel Rt lower abd ileostomy in place draining brown liquid stool. Pt inc of urine, pure wick in place, new one applied, kari care provided. Weak peripheral pulses noted. +2 pitting
generalized anasarca present. B/L UE scattered ecchymosis noted. Knee high seq in place. Right midline in place infusing D5NSS with 50KCL@60ml/hr as ordered. Pt repositioned per comfort. Oral care provided. Call shah in reach. Will continue to
monitor.
[2024-01-06 20:35] LABS: Blood Urea Nitrogen 13 mg/dl (7-17); Calcium 7.4 mg/dl (8.4-10.2); Carbon Dioxide 24 mmol/L (22-30); Chloride 97 mmol/L (98-107); Estimated Creatinine Clearance 49 ml/min; Glucose 79 mg/dl (70-99); Potassium 2.5 mmol/L (3.5-5.1); Sodium 127 mmol/L (135-145); eGFR > 60.00
[2024-01-06] MEDS: KCL 270 MEQ IV (21:31)
--- NOTE | 2024-01-06 21:48 | PTCARENOTE ---
Lab work obtained per MD order. Results reviewed with Cruz LIM, Order obtained, see MAR. Curry now infusing as ordered. Will continue to monitor.
[2024-01-07] VITALS (16 sets, daily range): BP systolic 99–133; BP diastolic 63–87; BMI 22.5
[2024-01-07] MEDS: UNASYN IV ×5 (00:46→23:24)
[2024-01-07] MEDS: LOPRESSOR 5 MG IV ×4 (00:46→17:34)
[2024-01-07] MEDS: OFIRMEV 100 IV (02:17)
--- NOTE | 2024-01-07 02:51 | PTCARENOTE ---
Pt complaining of pain in nose/throat from NGT, and generalized discomfort from laying in bed, despite frequent repositioning. PRN Tylenol administered as ordered. Will continue to monitor.
[2024-01-07 02:53] LABS: Hematocrit 24.6 % (37.0-47.0); Hemoglobin 8.8 g/dL (12.0-16.0); Mean Corp Hgb Conc. 35.8 g/dL (33.0-37.0); Mean Platelet Volume 9.7 fL (7.4-10.4); Platelet Count 335 10^3/uL (130-400); Red Blood Cell Count 2.59 10^6/uL (4.20-5.40); Red Cell Dist. Width 18.6 % (11.5-14.5); White Blood Cell Count 26.1 10^3/uL (4.8-10.8)
[2024-01-07 03:02] LABS: Glucose - Point of Care 79 mg/dl (70-99)
[2024-01-07 03:13] LABS: Potassium 3.8 mmol/L (3.5-5.1)
[2024-01-07 03:14] LABS: ALT (SGPT) 37 U/L (0-35); AST (SGOT) 54 U/L (14-36); Albumin 2.2 g/dl (3.5-5.0); Alkaline Phosphatase 276 U/L (38-126); Blood Urea Nitrogen 12 mg/dl (7-17); Calcium 7.6 mg/dl (8.4-10.2); Carbon Dioxide 25 mmol/L (22-30); Chloride 101 mmol/L (98-107); Estimated Creatinine Clearance 49 ml/min; Glucose 80 mg/dl (70-99); Sodium 128 mmol/L (135-145); Total Bilirubin 1.3 mg/dl (0.2-1.3); Total Protein 4.4 g/dl (6.3-8.2); eGFR > 60.00
--- NOTE | 2024-01-07 05:16 | PTCARENOTE ---
Pt not feeling well, pt with episode of vomiting brown emesis. NGT changed to continuous suction x1 hour. NGT flushed per protocol. Complete bed bath provided. Oral care complete. Pt reports feeling better. IVF infusing as ordered. Increased
ecchymosis noted to left breast, B/L UE. B/L LE edema improved. NO other changes in assessment noted at this time. Will continue to monitor.
[2024-01-07] MEDS: SOLU-CORTEF 25 MG IV (08:04)
[2024-01-07] MEDS: HEPARIN 5000 UNITS SC ×2 (08:04→19:16)
[2024-01-07] MEDS: NSS (PRESERVATIVE FREE) 10 ML IV ×2 (08:05→19:15)
[2024-01-07] MEDS: PROTONIX IV 40 MG IV ×2 (08:05→19:15)
[2024-01-07] MEDS: ZOFRAN 4 MG IV ×2 (08:58→19:15)
--- NOTE | 2024-01-07 10:15 | WOUNDNOTE ---
[facility] RN note: Patient readmitted 01/04/24 with partial bowel obstruction. Patient transferred from [facility]. R abdominal stoma pink and budded about 1 1/4 inch size. Peristomal skin intact. Slightly red above stoma suspect from skin creases under outer
flange. No wafer leakage. Patient does not feel well enough to participate in ostomy care. Daughter present and prefers to watch for instruction. Changed appliance using [place] wafer # [id number], Mariella seal and [place] pouch # [id number]. Extra ostomy
supplies left in room including a 2 1/4 inch high output pouch # [id number]. Skin on heels blanchable mild red. R sacral/buttocks blanchable red and fragile appearing. Silicone border foam applied. [facility] and has an air
chair cushion. Heels off bed with pillows. +2 LE edema. LE venous Doppler negative for DVT. Knee high SCD's removed for a break per patient request as they were uncomfortable. Updated RN Ene. Care plan to be updated. Next appliance change due
. PAULETTE Sena was in during visit.
--- NOTE | 2024-01-07 11:10 | W.PN.ID1 ---
Date of Service
Date of Service: January 07, 2024
Today's Communication
Continue Unasyn.
Assessment / Plan
# Recent Enterococcal bacteremia due to ischemic bowel
- Bacteremia cleared as of 12/27
- Continue Unasyn through 01/11/24 to complete 2 weeks course.
# Acute post-op small bowel obstruction
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
- Conservative management with NGT decompression at this time per Colorectal
-Improving
#Leukocytosis has plateaued
-Suspect due to acute SBO
- Steroid dose decreased as per hospitalist
- Repeat bcx's x 2 negative to date.
- Follow wbc.
#Other:
Renal insufficiency
Atrial fibrillation
HTN
Dyslipidemia
Sciatica
Lumbar spinal stenosis
PMR
Trigeminal neuralgia
Chief Complaint
-: Leukocytosis
Subjective / Review of Systems
Feeling better. + BM.
Vital Signs / Physical Exam
Vital Signs
Vital Signs
Temp Pulse Resp BP Pulse Ox
97.7 F 72 23 124/71 98
01/07/24 07:05 01/07/24 10:00 01/07/24 10:00 01/07/24 10:00 01/07/24 00:00
Physical Exam
Constitutional: No Acute Distress
Gastrointestinal: Soft, Non Tender, Non Distended and Normal Bowel Sounds
Extremities: Edema (1+ BLE)
Neurological: AO x 3
Objective Data
Lab Data
Lab Results
01/07/24 02:37
01/07/24 02:37
PT 14.7 Sec (11.4-14.6) H 01/04/24 18:30
INR 1.17 01/04/24 18:30
APTT 25.2 Sec (23.4-35.0) 01/04/24 18:30
Estimated Creat Clear 49 ml/min 01/07/24 02:37
Total Bilirubin 1.3 mg/dl (0.2-1.3) 01/07/24 02:37
AST 54 U/L (14-36) H 01/07/24 02:37
ALT 37 U/L (0-35) H 01/07/24 02:37
Alkaline Phosphatase 276 U/L (38-126) H 01/07/24 02:37
Most recent labs reviewed.
Micro Results:
01/06/24 10:46 Blood Culture - Preliminary
Blood/Venous No Growth in 24 hours- Final report to follow
01/06/24 10:10 Blood Culture - Preliminary
Blood/Venous No Growth in 24 hours- Final report to follow
01/04/24 CXR: Nasogastric tube in place terminating within a moderate-sized hiatal hernia. Small bilateral pleural effusions with adjacent mild compressive subsegmental atelectasis in the lower lobes of both lungs.
01/04/24 CT a/p: There is a small bowel obstruction. The point of transition is in the left lower quadrant but difficult to isolate. There is thickening of the decompressed loops of small bowel extending to the ileostomy.
There is fluid in the abdomen and pelvis which may be related to recent surgery, versus ascites.
01/04/24 LE venous doppler: no DVT
--- NOTE | 2024-01-07 11:47 | W.PN.CRS1 ---
Today's Communication / Plan
-
TPN/PICC
chest xray for NGT placement
Assessment/Plan
-
83 yo female who is now POD #11 ex lap with total abdominal colectomy and end ileostomy creation for ischemia who was d/c'd to inpatient rehab on 01/02 but presents again with nausea and vomiting at rehab center. Was initially tolerating diet with
+stool from stoma. CT imaging on presentation highly suggestive of early postoperative small bowel obstruction without discrete transition point easily identified but appears to be likely in the left lower quadrant. Few small residual bubbles of
free air related to recent laparotomy. Simple appearing free fluid in the right paracolic gutter region, perihepatic and pelvis, no rim enhancement, no air bubbles within it to suggest abscess or infectious component.
AFVSS
WBC 26.1, virtually unchanged
GI function improving with increasing stool/gas outputs noted from stoma
--C/W NGT, change to continous suction, NPO except ice chips
--Will follow for nonoperatively for improvement at this time with bowel rest/decompression
--ABX as per ID
--Chest xray for NGT placement
--Analgesics prn, avoid narcotics
--OOB/Ambulate as able
--c/w IVF, change to d5/ns with kcl
--VTE ppx with heparin sq
--Discussed TPN with family today. Will get recs from nutrition and start TPN and order PICC.
Subjective Data
Subjective Data
Date of Service: January 07, 2024
Patient states she vomited twice overnight. She has no abdominal pain. She still feels nauseous.
Objective Data
-
Vital Signs
Temp Pulse Resp BP Pulse Ox
97.7 F 95 23 124/71 98
01/07/24 07:05 01/07/24 11:41 01/07/24 10:00 01/07/24 11:41 01/07/24 00:00
Intake & Output
01/06/24 01/07/24 01/08/24
06:59 06:59 06:59
Intake Total 3320 / 3320 2660 / 2660
Output Total 1800 / 1800 3050 / 3050 50 / 50
Balance 1520 / 1520 -390 / -390 -50 / -50
Intake:
Oral fluids 120 / 120
IV fluids (Total) 2420 / 2420 1710 / 1710
IV piggybacks 780 / 780 680 / 680
Amount instilled into GI Tube ( 120 / 120 150 / 150
Total)
[place] Sump 120 / 120 150 / 150
Output:
Liquid stool amount 600 / 600 800 / 800 50 / 50
Ileostomy 600 / 600 800 / 800 50 / 50
Gastrointestinal tube output ( 400 / 400 750 / 750
Total)
[place] Sump 400 / 400 750 / 750
Urine, Voided 800 / 800 1500 / 1500
Other:
Number of approximated MODERATE 1 1
amounts of urine
Number of approximated LARGE 1 1
amounts of urine
Lab Results
01/07/24 02:37
01/07/24 02:37
Physical Exam
-
General: No Acute Distress
Abdomen: Soft, Non Distended, Non Tender and Other (ileostomy warm and pink with liquid stool)
Skin: Warm and Dry
--- NOTE | 2024-01-07 12:12 | PTCARENOTE ---
Rec'd pt this AM. Pt had vomitted overnight, presents with nausea this AM. Notified Dr. Cabrera who ordered Zofran. Zofran given with good effect. Suction order changed by GI team to continuous suction 80mhg. Pt tolerated OOB for about 1 hour and
then was uncomfortable. +2 assist back to bed. Extensive discussion with GI PAULETTE Akers, myself and family regarding next steps for PICC and TPN. Family initially stated that they would not agree to TPN until discussion with GI surgeon. RN discussed
their concerns and that GI MD will be rounding after his procedures in the OR are completed for the day. Educated on process for TPN to be started etc. Family and pt finally agree to TPN. Pt's vital signs stable. NGT with large amount of dark
brown/black, foul smelling output.
[2024-01-07] MEDS: D5/0.9% with KCL 40 MEQ 1000 IV (12:24)
--- NOTE | 2024-01-07 13:01 | W.PN.HOSP.TC ---
Today's Communication/Plan
-
N.p.o., NG tube. IVF. Plan for TPN
Assessment / Plan
Assessment / Plan
Physical exam:
General: Acutely ill
HEENT: Normocephalic, Atraumatic and Moist Mucous Membranes
Respiratory: Clear to Auscultation; Negative Wheezes, Rales or Rhonchi
Cardiac: Regular Rhythm and S1/S2
GI: Soft, Mild Tender and Nondistended. Ileostomy in place.
Musculoskeletal: No Clubbing, No Cyanosis and No Edema
Neuro: Awake, Alert and Oriented
Psych: Calm
A/P:
Recurrent small bowel obstruction
-Status post colectomy for necrotic bowel after period of obstipation constipation/end ileostomy
-NG tube to suction
-IV fluids to continue while n.p.o. and NG tube in
-Colorectal surgery consultation--> planning to start TPN today per surgery
-Monitor status of ileostomy and function
-Wound care/ostomy
-Continue IV antibiotics, IV Unasyn
-Steroids have been decreased
-Defer need for diuretics to nephrology
-Discussed with family at bedside
-Discussed with RN
Bilateral pleural effusion/peripheral edema
-Presumed in combination of compressive atelectasis and hypoalbuminemia
-Encourage spirometry
-Venous Doppler was negative for DVT
Enterococcal bacteremia
-Continue present course of Unasyn through 10 January per ID
-As leukocytosis continue unabated consider infectious disease consultation input
-Subsequent blood cultures have proved negative and has been afebrile
Paroxysmal atrial fibrillation
-Recently manifested with RVR in the absence of her usual dose of diltiazem with good results with IV diltiazem in the short-term
-Watch for recurrence of RVR while off p.o. diltiazem
-Scheduled metoprolol IV while NG tube in
-Eliquis will again be held/with question of GI bleed /heparin subcu DVT prophylaxis
-Presents with stable sinus rhythm now
Leukocytosis
-Multifactorial from ongoing steroid management and also acute process of recurrent small bowel obstruction
-ID following
Hyponatremia
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
-With sodium trending down again/will get nephrology input again
Hematemesis
-Unclear if in relation to small bowel obstruction itself or or another upper GI source
-Will be placed on twice daily PPI
-Hemodynamically stable presently
Polymyalgia rheumatica by history
-Steroid-dependent and had been undergoing steroid taper to her usual dosage of prednisone every 48
-Original plan as outpatient was to taper off steroids completely but presented on prednisone every 48 hours 10 mg
-Will place on hydrocortisone IV 25 mg every 12 hours for now tapered to single dose daily continue wean and taper once NG tube out
Hypothyroidism
-Since remains an NG tube placement/will need to place on IV levothyroxine
DVT prophylaxis only with SCDs/heparin subcu
Full CODE STATUS
Total time spent on today's encounter was 52 minutes which included time spent in counseling the patient/family regarding diagnosis and treatment plan as listed above, goals of care, and symptom management. Case was discussed with nursing staff,
specialists, and care coordinators/case management. All labs and imaging personally reviewed by me. Remainder the time spent in detailed review of previous records, lab data, imaging, and other medical provider documentation.
Anticipated Discharge: > 48 hours
Subjective/Interval History
-
Date of Service: January 07, 2024
Patient sitting up in the chair today. Patient vomited last night and today feels nauseous. Denies abdominal pain. Afebrile
Objective Data
-
Labs:
Laboratory Results
01/07/24 01/07/24
02:37 12:56
WBC 26.1 H
Hgb 8.8 L
Hct 24.6 L
Plt Count 335 D
Sodium 128 L Pending
Potassium 3.8 D Pending
Chloride 101 Pending
Carbon Dioxide 25 Pending
BUN 12 Pending
Creatinine 0.7 Pending
Glucose 80 Pending
Calcium 7.6 L Pending
Total Bilirubin 1.3 Pending
AST 54 H Pending
ALT 37 H Pending
Alkaline Phosphatase 276 H Pending
Vital Signs:
Vital Signs
Temp Pulse Resp BP Pulse Ox
97.7 F 95 23 124/71 98
01/07/24 07:05 01/07/24 11:41 01/07/24 10:00 01/07/24 11:41 01/07/24 00:00
I&O
01/06/24 01/07/24 01/08/24
06:59 06:59 06:59
Intake Total 3320 / 3320 2660 / 2660 30 / 30
Output Total 1800 / 1800 3050 / 3050 750 / 750
Balance 1520 / 1520 -390 / -390 -720 / -720
[2024-01-07 13:59] LABS: ALT (SGPT) 36 U/L (0-35); AST (SGOT) 43 U/L (14-36); Albumin 2.3 g/dl (3.5-5.0); Alkaline Phosphatase 277 U/L (38-126); Blood Urea Nitrogen 13 mg/dl (7-17); Calcium 7.6 mg/dl (8.4-10.2); Carbon Dioxide 24 mmol/L (22-30); Chloride 102 mmol/L (98-107); Estimated Creatinine Clearance 49 ml/min; Glucose 125 mg/dl (70-99); Magnesium 1.4 mg/dl (1.6-2.3); Phosphorus 2.5 mg/dl (2.5-4.5); Potassium 3.8 mmol/L (3.5-5.1); Sodium 129 mmol/L (135-145); Total Bilirubin 1.1 mg/dl (0.2-1.3); Total Protein 4.5 g/dl (6.3-8.2); Triglycerides 113 mg/dl (10-149); eGFR > 60.00
--- NOTE | 2024-01-07 14:15 | PTOTSP ---
Please order Occupational therapy for ADL dysfunction as pt came in from rehab facility where she was getting PT AND OT. Thanks.
--- NOTE | 2024-01-07 14:39 | W.PN.UPDATE ---
Update Note
Progress Note Update
I reviewed the imaging of the chest xray with Dr. Dillon and Dr. Owens and Dr. López. The NGT is coiled in the hiatal hernia. Under direction of Dr. López, I slowly pulled the NGT back about 5cm and readvanced about 3cm. I updated the daughter.
Chest xray to follow once PICC placed.
--- NOTE | 2024-01-07 15:01 | VATNOTE ---
Attempted to exchange Midline for PICC, but was unable to fully insert introducer or catheter. Midline completely removed, and procedure started over. PICC placed without incident.
[2024-01-07] MEDS: PHENERGAN 25 MG IM (15:44)
--- NOTE | 2024-01-07 15:47 | W.PN.UPDATE ---
Update Note
Progress Note Update
Called by nurse patient was having some chest discomfort and also looked pale her blood pressure dropped transiently after maneuvering ngt and picc. I came and evaluated the patient. She does complain of reproducible pain on right subcostal area,
no radiation. She is also complaining of nausea on and off.
Will obtain stat chest x-ray, twelve-lead EKG, troponin, BNP, CRP, repeat CMP and CBC. Reviewed twelve-lead EKG at bedside and normal sinus rhythm no ischemic concerning signs. Chest pain appears atypical and also this sounds like a vasovagal
vagal event. Will give Phenergan IM x 1. IV magnesium sulfate 2 g. Otherwise, we will follow-up rest of the workup and reevaluate as needed.
--- NOTE | 2024-01-07 15:48 | PTCARENOTE ---
Assisted GI PA in movment of NGT. Upon movment of NGT pt had 500ml output and became nauseous. Pt also having new PICC placed. Unable to use PICC until confirmed by radiologist via XR taken for both NGT placement and PICC placement. Pt complained of
abdominal and chest pain. dizziness, BP 104/63. Dr. Cabrera notified and assessed pt at bedside. EKG completed, reviewed by Dr. Cabrera. Pt reported to MD pain more right rib location. continues with nausea. IM phenergan given as ordered. Pt now reports
feeling somewhat better at this time.
--- NOTE | 2024-01-07 16:32 | PTCARENOTE ---
Per Dr. López, NGT OK to use. 600ml out this afternoon and 700ml out this AM
--- NOTE | 2024-01-07 16:33 | W.PN.NEPH.PH ---
Today's Communication / Plan
-
continue to trend Na
give another dose of lasix today
Assessment/Plan
-
IMP:
Recurrent small bowel obstruction-Status post colectomy for necrotic bowel after period of obstipation constipation/end ileostomy 12/26
Bilateral pleural effusion/peripheral edema
Enterococcal bacteremia
Paroxysmal atrial fibrillation
Leukocytosis
Hyponatremia
Hematemesis
Polymyalgia rheumatica by [id number] and had been undergoing steroid taper to her usual dosage of prednisone every 48
Hypothyroidism
HTN
Dyslipidemia
PLan:
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
She also seem to have hypervolemia with high BNP, pleural effusion on CXR on admit with normal renal function
suspect current worsening sodium likely multifactorial-GI loss, hypervolemia, SIADH
given that she is NPO, cont IVF but decrease rate
K replacement PRN, especially with IV lasix
give another dose of IV lasix 20mg today
diet per surgery
BP stable
edema is mostly dependant with hypoalbuminemia
monitor daily wts, labs
stable renal function
abx per ID
d/w pt and family
-
-
Date of Service: January 07, 2024
CC / HPI / ROS
-
Chief Complaint:
hyponatremia
History of Present Illness:
Na now improved to 129 s/p 1 dose of lasix
Review of Systems:
feeling well, no complaints
Labs
-
Labs:
eGFR > 60.00 01/07/24 13:32
Phosphorus 2.5 mg/dl (2.5-4.5) 01/07/24 13:32
Physical Exam
-
Vital Signs:
Vital Signs
Temp Pulse Resp BP Pulse Ox
97.7 F 80 21 120/77 96
01/07/24 07:05 01/07/24 15:57 01/07/24 15:57 01/07/24 15:57 01/07/24 15:57
Cardiovascular:: Regular rate and rhythm
Respiratory:: Bilateral: Coarse
Lung Excursion:: Normal
Abdomen:: Distended
Bowel Sounds:: Decreased
Extremity Edema:: +2: Left:
Keith Catheter: No
Other Findings::
purewick catheter in place
--- NOTE | 2024-01-07 17:01 | CM ---
Addendum entered by Laura Ortega RN 01/07/24 17:06:
Patient who is s/p recent colectomy with ileostomy on prior admit.
Original Note:
Patient from [facility] with Dx Recurrent small bowel obstruction. NPO/NGT/TPN. PICC ordered. IV Abx.
Met with patient, and daughter; the patient would like to return to [facility] when she is medically ready.
Phone call to [facility]; left message patient interested in returning.
Will need referral to [facility] when closer to d/c.
Plan follow up with [facility] about patient's return.
--- NOTE | 2024-01-07 17:01 | PTCARENOTE ---
Awaiting confirmation of PICC placement prior to administering meds currently due.
[2024-01-07] MEDS: LASIX 20 MG IV (17:30)
[2024-01-07] MEDS: MAGNESIUM SULFATE 50 IV (17:32)
[2024-01-07] MEDS: LEVOTHROID 35 MCG IV (17:32)
[2024-01-07 17:33] LABS: % Basophils 0.3 % (0-2); % Immature Granulocytes 0.9 % (0-0.5); % Lymphocytes 1.1 % (20.5-51.1); % Monocytes 4.1 % (1.7-9.3); Absolute Basophils 0.1 10^3/uL (0-0.2); Absolute Immature Granulocytes 0.2 10^3/uL (0-0.05); Absolute Lymphocytes 0.3 10^3/uL (1.2-3.4); Absolute Neutrophils 23.8 10^3/uL (1.4-6.5); Hematocrit 27.2 % (37.0-47.0); Hemoglobin 9.9 g/dL (12.0-16.0); Mean Corp Hgb Conc. 36.4 g/dL (33.0-37.0); Mean Corpuscular Hgb 34.5 pg (27.0-31.0); Mean Corpuscular Volume 94.8 fL (81.0-99.0); Mean Platelet Volume 9.8 fL (7.4-10.4); Nucleated Red Blood Cells % 0 %; Platelet Count 445 10^3/uL (130-400); Red Blood Cell Count 2.87 10^6/uL (4.20-5.40); Red Cell Dist. Width 19.5 % (11.5-14.5); White Blood Cell Count 25.4 10^3/uL (4.8-10.8)
[2024-01-07 17:44] LABS: ALT (SGPT) 36 U/L (0-35); AST (SGOT) 48 U/L (14-36); Albumin 2.4 g/dl (3.5-5.0); Alkaline Phosphatase 286 U/L (38-126); Blood Urea Nitrogen 15 mg/dl (7-17); Carbon Dioxide 20 mmol/L (22-30); Chloride 100 mmol/L (98-107); Estimated Creatinine Clearance 49 ml/min; Glucose 122 mg/dl (70-99); Magnesium 1.5 mg/dl (1.6-2.3); Potassium 3.5 mmol/L (3.5-5.1); Sodium 129 mmol/L (135-145); Total Bilirubin 1.3 mg/dl (0.2-1.3); Total Protein 4.7 g/dl (6.3-8.2); eGFR > 60.00
[2024-01-07 17:49] LABS: % Neutrophils 93.6 % (42.2-75.2)
--- NOTE | 2024-01-07 17:51 | PTCARENOTE ---
Rec'd confirmation of PICC placement. All meds given and infusing as ordered. pt reports being more comfortable now. Resting. Vital signs stable.
[2024-01-07 17:53] LABS: NT-proBNP 2890 pg/ml
[2024-01-07 17:56] LABS: Troponin I 0.025 ng/ml
[2024-01-07 21:49] LABS: Blood Urea Nitrogen 15 mg/dl (7-17); Calcium 7.7 mg/dl (8.4-10.2); Carbon Dioxide 19 mmol/L (22-30); Chloride 103 mmol/L (98-107); Estimated Creatinine Clearance 43 ml/min; Glucose 160 mg/dl (70-99); Potassium 3.8 mmol/L (3.5-5.1); Sodium 128 mmol/L (135-145); eGFR > 60.00
[2024-01-07 21:50] LABS: Lactic Acid 2.1 mmol/L (0.7-2.0); Magnesium 2.1 mg/dl (1.6-2.3)
[2024-01-07] MEDS: PHENERGAN 50.25 MG IV (21:56)
[2024-01-07] MEDS: Parenteral Nutrition, Central 740 IV (22:05)
[2024-01-07] MEDS: ATIVAN 0.25 MG IV (22:42)
[2024-01-07] MEDS: NSS (PRESERVATIVE FREE) 0.125 ML IV (22:43)
--- NOTE | 2024-01-07 23:25 | W.PN.UPDATE ---
Addendum entered and electronically signed by RAPHAEL Espana 01/07/24 23:54:
2340 port cxr ordered for NGT placement. intial showed coiling in hernia again but seems to be more than previous. Not draining. Attempts made to pull back NGT but pt fighting us and then it was noted that part of NGT then coiled in mouth (thought
tip is better in stomach). PT started coughing so NGT removed.
Original Note:
Update Note
Progress Note Update
1999 notified by nurse that pt continues to vomit around NGT and that bilat feet noted to be cool to touch and cyanotic appearing which was not noted last night (same nurse had pt).
PT admitted with SBO post bowel resection 12/27/23. NGT has been coiled in her hiatal hernia (colorectal aware).
On eval PT with emesis bucket dry heaving. NGT draining dark bilous content too. After warming feet with blankets prior to my arrival, pt feel are less cyanotic and are warmer (but still cool). +pedal pulses. +pedal edema present. BP stable
Will check bmp, lactic, and mag
2100 RN did also reach out to Dr harris about pt status. Suggested removing NGT and replacing with larger tube.
Labs: electrolytes improved from previous. Lactic 2.1 (no previous).
RN removed NGT but would not let her replace without something to relax her. Small dose ativan iv ordered.
--- NOTE | 2024-01-07 23:54 | W.PN.UPDATE ---
Update Note
Progress Note Update
pt with poor perfusion to fingers. Pulse ox pleth poor and unable to get good reading. Will check ABG
[2024-01-08] VITALS (13 sets, daily range): BP systolic 92–126; BP diastolic 50–87; PULSE 74; O2SAT 92; BMI 21.9
[2024-01-08 00:18] LABS: B.E. -3.4 mmol/L; HCO3 18.4 mmol/L (21-28); O2 Saturation % 98.2 % (94-98); PCO2 23 mmHg (32-35); PO2 82 mmHg (83-108); pH 7.51 (7.35-7.45)
[2024-01-08 00:20] LABS: Glucose - Point of Care 99 mg/dl (70-99)
[2024-01-08] MEDS: LOPRESSOR 5 MG IV (01:16)
[2024-01-08 01:48] LABS: Lactic Acid 2.2 mmol/L (0.7-2.0)
[2024-01-08] MEDS: NSS 250 IV (02:59)
--- NOTE | 2024-01-08 03:07 | PTCARENOTE ---
Resumed care of pt at 1930 with pt vomiting dark brown liquid. PRN Zofran administered as ordered. Pt continued to have nausea and vomiting despite NGT in place draining liquid brown drainage. Pt noted to be tachypneic, with cold cyanotic B/L LE.
Cool extremities with difficulty obtained POX. RT at bedside able to get pox 94% on RA. hr in the 80's in NSR on the monitor. Lungs course on the left. Pt continued to vomit. Salvador LIM at bedside to assess pt. Orders obtained for IV Phenergan.
Dr. López updated on pt status. Per Dr López, current NGT to be pulled and attempt to replace with 18fr [place] sump. pt very anxious about NGT placement and asking for something to help her relax, order obtained, see PHIL. Inderjit LIM at bedside to
assist this RN with new NGT placement. NGT placed, Xray obtained to confirm, scant output from new NGT, attempted to pull back on NGT, new Xray obtained. Pt fighting this RN and yelling in attempt to secure NGT, NGT ended up coiled in pt mouth. NGT
removed. NO further NGT placement attempted. Labs obtained. ABG obtained. Pure wick in place draining dark aure urine. B/L knees mottled. Pt placed on 4 LO2 NC. Rectal temp obtained 98.1. Labs reviewed with Salvador CNRP, order obtained, see MAR.
Pt with increased confusion and restlessness, repetitive orientation provided. TNP infusing via right dual picc as ordered. Vital signs remains stable. Will continue to monitor closely.
[2024-01-08] MEDS: ZOFRAN 4 MG IV (04:25)
--- NOTE | 2024-01-08 04:55 | PTCARENOTE ---
Pt vomiting. Pt cleaned up. PRN Zofran administered. Lungs course scattered rhonchi on left. Pt continues to deny pain, only nausea. Pt continue to be restless pulling off gown, heart monitor. Will continue to monitor.
[2024-01-08] MEDS: LOPRESSOR IV ×3 (05:14→18:19)
[2024-01-08] MEDS: UNASYN IV ×3 (05:14→18:12)
[2024-01-08 05:23] LABS: % Basophils 0.3 % (0-2); % Immature Granulocytes 0.8 % (0-0.5); % Lymphocytes 3.3 % (20.5-51.1); % Monocytes 3.4 % (1.7-9.3); % Neutrophils 92.2 % (42.2-75.2); Absolute Immature Granulocytes 0.1 10^3/uL (0-0.05); Absolute Lymphocytes 0.2 10^3/uL (1.2-3.4); Absolute Monocytes 0.2 10^3/uL (0.1-0.6); Hematocrit 26.1 % (37.0-47.0); Hemoglobin 9.1 g/dL (12.0-16.0); Mean Corp Hgb Conc. 34.9 g/dL (33.0-37.0); Mean Corpuscular Hgb 34.3 pg (27.0-31.0); Mean Corpuscular Volume 98.5 fL (81.0-99.0); Mean Platelet Volume 10.2 fL (7.4-10.4); Nucleated Red Blood Cells % 0.5 %; Platelet Count 401 10^3/uL (130-400); Red Blood Cell Count 2.65 10^6/uL (4.20-5.40); Red Cell Dist. Width 19.9 % (11.5-14.5); White Blood Cell Count 6.5 10^3/uL (4.8-10.8)
[2024-01-08 05:58] LABS: ALT (SGPT) 31 U/L (0-35); AST (SGOT) 42 U/L (14-36); Albumin 2.2 g/dl (3.5-5.0); Alkaline Phosphatase 170 U/L (38-126); Blood Urea Nitrogen 21 mg/dl (7-17); Calcium 8.1 mg/dl (8.4-10.2); Carbon Dioxide 19 mmol/L (22-30); Chloride 104 mmol/L (98-107); Estimated Creatinine Clearance 31 ml/min; Glucose 498 mg/dl (70-99); Magnesium 2.3 mg/dl (1.6-2.3); Phosphorus 4.8 mg/dl (2.5-4.5); Potassium 5.8 mmol/L (3.5-5.1); Sodium 130 mmol/L (135-145); Total Bilirubin 1.3 mg/dl (0.2-1.3); Total Protein 4.1 g/dl (6.3-8.2); eGFR 49.55
[2024-01-08 06:14] LABS: Hemoglobin 9.2 g/dL (12.0-16.0); Mean Corp Hgb Conc. 35.4 g/dL (33.0-37.0); Mean Corpuscular Hgb 34.2 pg (27.0-31.0); Mean Corpuscular Volume 96.7 fL (81.0-99.0); Mean Platelet Volume 9.9 fL (7.4-10.4); Platelet Count 390 10^3/uL (130-400); Red Blood Cell Count 2.69 10^6/uL (4.20-5.40); Red Cell Dist. Width 19.9 % (11.5-14.5)
[2024-01-08 06:32] LABS: Blood Urea Nitrogen 23 mg/dl (7-17); Calcium 7.6 mg/dl (8.4-10.2); Carbon Dioxide 21 mmol/L (22-30); Chloride 106 mmol/L (98-107); Estimated Creatinine Clearance 35 ml/min; Glucose 221 mg/dl (70-99); Potassium 3.7 mmol/L (3.5-5.1); Sodium 133 mmol/L (135-145); eGFR 55.55
[2024-01-08 06:44] LABS: Glucose - Point of Care 199 mg/dl (70-99)
[2024-01-08] MEDS: PHENERGAN 50.25 MG IV (07:39)
[2024-01-08] MEDS: NSS (PRESERVATIVE FREE) 10 ML IV ×2 (09:22→21:08)
[2024-01-08] MEDS: PROTONIX IV 40 MG IV ×2 (09:23→21:08)
[2024-01-08] MEDS: SOLU-CORTEF 25 MG IV (09:23)
--- NOTE | 2024-01-08 09:23 | W.PN.HOSP.TC ---
Today's Communication/Plan
-
NPO. TPN. IV antibiotics.
Assessment / Plan
Assessment / Plan
Physical exam:
General: Acutely ill
HEENT: Normocephalic, Atraumatic and Moist Mucous Membranes
Respiratory: Clear to Auscultation; Negative Wheezes, Rales or Rhonchi
Cardiac: Regular Rhythm and S1/S2
GI: Soft, Mild Tender and Nondistended. Ileostomy in place.
Musculoskeletal: No Clubbing, No Cyanosis and No Edema
Neuro: Awake, Alert and Oriented
Psych: Calm
A/P:
Recurrent small bowel obstruction
-Status post colectomy for necrotic bowel after period of obstipation constipation/end ileostomy
-NG tube to suction
-IV fluids to continue while n.p.o. and NG tube in
-Colorectal surgery consultation--> planning to start TPN today per surgery
-Monitor status of ileostomy and function
-Wound care/ostomy
-Continue IV antibiotics, IV Unasyn
-Steroids have been decreased
-Defer need for diuretics to nephrology
-Discussed with family at bedside
-Discussed with RN
-Family upset today and asked why the medical services/team are seeing her if decisions are made by surgery. Most of the medical decisions are surgical indeed although she does have multiple medical problems. I reached out to surgeon to see if she
can be transferred to their services but they would prefer for us to keep seeing her and keep her in our service for now. If family insists, I see no reason why medical team would cont to follow her.
I also asked cardiology to see her for elevated troponin today (family is very certain cardiology is following her from over the weekend but I explained that they are not until today's consult). I see GI consulted as well.
Atypical chest pain and vasovagal event yesterday
-EKG normal sinus rhythm no ischemic signs
-Trop had some elevatio today.
-cardiology consulted
Bilateral pleural effusion/peripheral edema
-Presumed in combination of compressive atelectasis and hypoalbuminemia
-Encourage spirometry
-Venous Doppler was negative for DVT
Enterococcal bacteremia
-Continue present course of Unasyn through 10 January per ID
-As leukocytosis continue unabated consider infectious disease consultation input
-Subsequent blood cultures have proved negative and has been afebrile
Paroxysmal atrial fibrillation
-Recently manifested with RVR in the absence of her usual dose of diltiazem with good results with IV diltiazem in the short-term
-Watch for recurrence of RVR while off p.o. diltiazem
-Scheduled metoprolol IV while NG tube in
-Eliquis will again be held/with question of GI bleed /heparin subcu DVT prophylaxis
-Presents with stable sinus rhythm now
Leukocytosis
-Multifactorial from ongoing steroid management and also acute process of recurrent small bowel obstruction
-ID following
Hyponatremia
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
-With sodium trending down again/will get nephrology input again
Hematemesis
-Unclear if in relation to small bowel obstruction itself or or another upper GI source
-Will be placed on twice daily PPI
-Hemodynamically stable presently
Polymyalgia rheumatica by history
-Steroid-dependent and had been undergoing steroid taper to her usual dosage of prednisone every 48
-Original plan as outpatient was to taper off steroids completely but presented on prednisone every 48 hours 10 mg
-Will place on hydrocortisone IV 25 mg every 12 hours for now tapered to single dose daily continue wean and taper once NG tube out
Hypothyroidism
-Since remains an NG tube placement/will need to place on IV levothyroxine
DVT prophylaxis only with SCDs/heparin subcu
Full CODE STATUS
Total time spent on today's encounter was 52 minutes which included time spent in counseling the patient/family regarding diagnosis and treatment plan as listed above, goals of care, and symptom management. Case was discussed with nursing staff,
specialists, and care coordinators/case management. All labs and imaging personally reviewed by me. Remainder the time spent in detailed review of previous records, lab data, imaging, and other medical provider documentation.
Anticipated Discharge: > 48 hours
Subjective/Interval History
-
Date of Service: January 08, 2024
Patient no new complaints. Family upset today-see below.
Objective Data
-
Labs:
Laboratory Results
01/07/24 01/08/24 01/08/24
21:28 00:12 05:10
WBC 6.5
Hgb 9.1 L
Hct 26.1 L
Plt Count 401 H
HCO3 18.4 L
Sodium 128 L 130 L
Potassium 3.8 5.8 H D
Chloride 103 104
Carbon Dioxide 19 L 19 L
BUN 15 21 H
Creatinine 0.8 1.1 H
Glucose 160 H 498 H*
Calcium 7.7 L 8.1 L
Total Bilirubin 1.3
AST 42 H
ALT 31
Alkaline Phosphatase 170 H
01/08/24
06:07
WBC 7.0
Hgb 9.2 L
Hct 26.0 L
Plt Count 390
HCO3
Sodium 133 L
Potassium 3.7 D
Chloride 106
Carbon Dioxide 21 L
BUN 23 H
Creatinine 1.0
Glucose 221 H
Calcium 7.6 L
Total Bilirubin
AST
ALT
Alkaline Phosphatase
Vital Signs:
Vital Signs
Temp Pulse Resp BP Pulse Ox
98.1 F 100 23 126/82 92
01/08/24 03:05 01/08/24 06:00 01/08/24 06:00 01/08/24 06:00 01/07/24 22:00
I&O
0401/08/24 01/09/24
06:59 06:59 06:59
Intake Total 2660 / 2660 940 / 940
Output Total 3050 / 3050 2650 / 2650
Balance -390 / -390 -1710 / -1710
[2024-01-08] MEDS: HEPARIN 5000 UNITS SC ×2 (09:31→21:08)
[2024-01-08 10:49] LABS: Troponin I 0.067 ng/ml
--- NOTE | 2024-01-08 10:51 | PTCARENOTE ---
Assumed care of pt from night RN, pt AAOx3, reports feeling better than overnight, less restless. Reports no n/v so far this shift. Per colorectal, ng tube to be replaced and to suction, pt somewhat agreeable. Will attempt to place [place] sump after
numbing nare and throat with lidocaine. TPN infusing as ordered via PICC, pt remains NPO with chips allowed. at bedside and updated on pt status. Will continue to monitor through shift.
--- NOTE | 2024-01-08 11:24 | PTCARENOTE ---
This RN went in pt's room to place ngt, pt requesting this RN to come back in an hour. No c/o nausea or vomiting. Dr. Manrique notified.
--- NOTE | 2024-01-08 11:30 | CON.CAR ---
Addendum entered and electronically signed by Fidel Vizcaino DO 01/08/24 17:06:
I saw and examined the patient.
The House Painter's note was reviewed and I agree with the note.
Comment:
Plan:
Consulted for minimal troponin elevation. Trend until it peaks. It appears to be nonMI trop which would be medical management.
Check echo to eval for structural heart disease.
She has no cardiac symptoms.
Cont GI work up and supportive care
Discussed with nursing.
�
Original Note:
Consultation
Consultation Request
Date/Time Consultation Requested: 01/08/24
Date/Time Consultation Performed: 01/08/24
Requesting Provider: Dr. Cabrera
Performing Provider: Dr. Vizcaino
Reason for Consultation: Chest pain, elevated Troponin
Medical History
-
History of Present Illness:
Patient came to [facility] from [facility] with vomiting 01/04/24 and was admitted with recurrent SBO, cardiology was consulted today for chest pain and elevated Troponin. Patient came to [facility] with abdominal pain 12/24/23 and after an abdominal u/s and CXR
she was discharged to home. Patient returned to [facility] 12/26/23 with ongoing abdominal pain and constipation and was admitted. Patient had patchy necrosis of the colonic wall on colonoscopy and then had total abdominal colectomy with end ileostomy for
ischemia on 12/27/23. Patient was followed by ID for Enterococcal bacteremia. Cardiology was consulted during that admission for recurrence of known paroxysmal Afib and flutter. Patient spontaneously converted to SR and then had another recurrence
with spontaneous conversion and ultimately was in SR at time of discharge to [facility]. The plan was to manage any recurrences of Afib with rate control due to interruptions in Eliquis. Patient went to [facility] 01/03/24, but started with vomiting early
on 01/04/24 and was sent to [facility] where she was admitted with SBO. Cardiology is consulted for an episode of chest pain during repositioning of NGT yesterday. Initial Troponin was 0.025 then recheck this AM it was 0.067. No recurrence of chest pain.
NGT now removed.
PMH:
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
Paroxysmal atrial fibrillation and typical atrial flutter
s/p PVI, CTI flutter ablation, 08/25/19
occurrence with RVR 12/26/23 then spontaneously converted to SR 12/29/23, recurred with Afib 12/31/23 and then spontaneously converted to SR again 01/01/24
Chronic Eliquis anticoagulation
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
HTN
HLD
GERD
Hypothyroidism
Arthritis
Past Medical History
Past Medical History: Other (in HPI)
Past Surgical History: Appendectomy, Bowel Resection (Total colectomy and end ileostomy 12/27/2023), Cardiac (PVI, CTI ablation 08/25/2019) and Orthopedic (right hip hemiarthroplasty 03/15/2021)
Social History
Tobacco: Former Smoker
Alcohol: None
Drug: None
Personal:
Living: Other (prior to 12/26/23 admission patient lived independently with family, was at [facility] for rehab very briefly before this readmission)
Family History
Family History: Cancer and Diabetes
Allergies / Home Medications
Allergy/AdvReac Type Severity Reaction Status Date / Time
amlodipine Allergy Nausea Verified 01/07/24 21:43
doxycycline Allergy Hives Verified 12/24/23 06:30
hydrocodone [From Vicodin] Allergy Vomiting Verified 01/07/24 21:43
metoprolol [From Lopressor] Allergy Dizzy Verified 01/07/24 21:43
sulfamethoxazole Allergy Rash Verified 12/24/23 06:30
[From Bactrim]
trimethoprim [From Bactrim] Allergy Rash Verified 12/24/23 06:30
�Medication �Instructions �Recorded �Confirmed �Type
diltiazem HCl 120 mg 120 mg PO DAILY #30 caps 03/24/21 01/04/24 Rx
capsule,extended release 24 hr
gabapentin 300 mg capsule 300 mg PO DAILY #30 caps 03/24/21 01/04/24 Rx
apixaban 2.5 mg tablet (Eliquis) 2.5 mg PO BID Blood Clot 12/26/23 01/04/24 History
Prevention/Tx
levothyroxine 75 mcg tablet 75 mcg PO DAILY AT 0700 Thyroid 12/26/23 01/04/24 History
prednisone 20 mg tablet 10 mg PO Q48H Anti-Inflammatory 12/26/23 01/04/24 History
Ampicillin/Sulbactam 3 G [Unasyn] 240 mls/hr IV Q6H Infection 01/03/24 01/04/24 Rx
3 gm
multivitamin with folic acid 400 1 tab PO DAILY 01/03/24 01/04/24 History
mcg tablet (Tab-A-Taz)
nystatin 100,000 unit/mL oral 5 ml PO QID Infection #60 mL 01/03/24 01/04/24 Rx
suspension
pantoprazole 40 mg tablet,delayed 40 mg PO DAILY #14 tabs 01/03/24 01/04/24 Rx
release
potassium, sodium phosphates 280 1 packet PO DAILY Supplement #5 ea 01/03/24 01/04/24 Rx
mg-160 mg-250 mg oral powder
packet (Phosphorous Supplement)
prednisone 10 mg tablet 10 mg PO QPM #14 tabs 01/03/24 01/04/24 Rx
acetaminophen 500 mg tablet 1,000 mg PO Q8H mild pain 01/04/24 01/04/24 History
(Tylenol Extra Strength)
ondansetron HCl 4 mg tablet 4 mg PO Q8H PRN NAUSEA/VOMITING 01/04/24 01/04/24 History
therapeutic multivitamin 1 tab PO DAILY 01/04/24 01/04/24 History
Review of Systems
-
History Source: Patient and Family (talked with patient's daughters and bedside as well)
All other systems: Negative unless noted
Physical Exam
Vital Signs
Temp Pulse Resp BP Pulse Ox
97.3 F 100 23 126/82 96
01/08/24 07:05 01/08/24 06:00 01/08/24 06:00 01/08/24 06:00 01/08/24 08:00
GEN: NAD. Awake and alert
HEENT: MMM, wearing glasses
LUNGS: Clear anterolaterally without wheeze. Wearing oxygen at 3 L NC.
CV: Reg, no murmur
ABD: +BS, soft
EXT: Trace to +1 B/L LE edema. No clubbing, cyanosis or lesions B/L
NEURO: Gross non-focal
SKIN: Warm, dry and pink. No rash
Lab Results
01/08/24 06:07
01/08/24 06:07
Troponin I 0.067 ng/ml H* 01/08/24 09:57
Nlt-A-Eajlqokuece Pept 2890 pg/ml 01/07/24 17:23
Impression / Plan
-
PCP: Dr. David Valdez
Cardiology: Dr. Ku
Impression:
Admitted with recurrent SBO 01/04/24
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
Chest pain
Elevated Troponin
Paroxysmal atrial fibrillation and typical atrial flutter
s/p PVI, CTI flutter ablation, 08/25/19
occurrence with RVR 12/26/23 then spontaneously converted to SR 12/29/23, recurred with Afib 12/31/23 and then spontaneously converted to SR again 01/01/24
Chronic Eliquis anticoagulation
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
HTN
HLD
GERD
Hypothyroidism
Arthritis
FARIDA 08/19/2019: EF 60 to 65%, mild MR
Echo 12/31/23: EF 65-70%, mild conc LVH, no , mild TR with PAP 30-35 mmHg
Plan:
-Patient came to [facility] from [facility] with vomiting 01/04/24 and was admitted with recurrent SBO, cardiology was consulted today for chest pain and elevated Troponin. Patient came to [facility] with abdominal pain 12/24/23 and after an abdominal u/s and CXR
she was discharged to home. Patient returned to [facility] 12/26/23 with ongoing abdominal pain and constipation and was admitted. Patient had patchy necrosis of the colonic wall on colonoscopy and then had total abdominal colectomy with end ileostomy for
ischemia on 12/27/23. Patient was followed by ID for Enterococcal bacteremia. Cardiology was consulted during that admission for recurrence of known paroxysmal Afib and flutter. Patient spontaneously converted to SR and then had another recurrence
with spontaneous conversion and ultimately was in SR at time of discharge to [facility]. The plan was to manage any recurrences of Afib with rate control due to interruptions in Eliquis. Patient went to [facility] 01/03/24, but started with vomiting early
on 01/04/24 and was sent to [facility] where she was admitted with SBO. Cardiology is consulted for an episode of chest pain during repositioning of NGT yesterday. Initial Troponin was 0.025 then recheck this AM it was 0.067. No recurrence of chest pain.
NGT now removed.
-ECG reviewed by me without acute ischemic change. Also patient is in SR on ECG.
-Initial Troponin was 0.025 and then up to 0.067. Discussed checking another Troponin at 1300 and drawing via PICC line, but upon further discussion with family at bedside they would like test again later this evening and hopefully it will be one
less vial of blood drawn from patient. Patient is pain free and no acute ischemic changes on ECG so this is reasonable. Order placed.
-Troponin elevation most likely a nonischemic myocardial injury Troponin elevation due to acute illness.
-Pending results of Troponin could consider repeat limited study echo to assure stable EF
-Patient with known paroxysmal Afib/flutter and is currently in SR. Usual dose of Cardizem CD 120 mg PO daily is on hold while NPO and decisions being made about NGT. For now continue Lopressor 5 mg IV q 6 hours with doses being held thus far today
due to hypotension.
-Usual dose of Eliquis 2.5 mg BID is on hold. Hgb stable. Eventually resume when stable from a CV perspective.
-Nephrology following for hyponatremia and Lasix 20 mg IV x1 given 01/07/24 evening. Sodium improved from 130 to 133
[2024-01-08 11:31] LABS: Glucose - Point of Care 225 mg/dl (70-99)
--- NOTE | 2024-01-08 12:03 | PTCARENOTE ---
This RN spoke with pt's daughter at length re: status and ongoing care. Pt's daughter very adamant that any ng tube be placed under fluoroscopy, Dr. Manrique notified.
[2024-01-08] MEDS: NOVOLOG FLEXPEN-LOW RESISTANCE 2 UNITS SC ×2 (12:42→18:23)
--- NOTE | 2024-01-08 13:32 | W.PN.ID1 ---
Date of Service
Date of Service: January 08, 2024
Today's Communication
Continue antibiotics.
Assessment / Plan
# Recent Enterococcal bacteremia due to ischemic bowel
- Bacteremia cleared as of 12/27
- Continue Unasyn through 01/11/24 to complete 2 weeks course.
# Acute post-op small bowel obstruction
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
- Conservative management with NGT decompression at this time per Colorectal
-Improving
#Leukocytosis
- Suspect due to acute SBO
- Steroid dose decreased as per hospitalist
- Repeat bcx's x 2 negative to date.
- Follow wbc.
#Other:
Renal insufficiency
Atrial fibrillation
HTN
Dyslipidemia
Sciatica
Lumbar spinal stenosis
PMR
Trigeminal neuralgia
Chief Complaint
-: Leukocytosis
Subjective / Review of Systems
Review of Systems: No Fever and No Chills
Vital Signs / Physical Exam
Vital Signs
Vital Signs
Temp Pulse Resp BP Pulse Ox
99.0 F 100 23 100/50 96
01/08/24 11:00 01/08/24 06:00 01/08/24 06:00 01/08/24 11:57 01/08/24 08:00
Physical Exam
Constitutional: Comfortable, Chronically Ill and Non-toxic
Eyes: No Conjunctival Hemorrhage and Sclera Anicteric
Cardiovascular: S1/S2; Negative S3/S4 or Murmur
Pulmonary: Non Labored
Gastrointestinal: Soft, Decreased Bowel Sounds, No Rebound, No Guarding and Other (Ostomy in place.)
Extremities: Edema; Negative Cyanosis or Erythema
Neurological: Awake and Alert
Psychological: Calm
Objective Data
Lab Data
Lab Results
01/08/24 06:07
01/08/24 06:07
PT 14.7 Sec (11.4-14.6) H 01/04/24 18:30
INR 1.17 01/04/24 18:30
APTT 25.2 Sec (23.4-35.0) 01/04/24 18:30
Estimated Creat Clear 35 ml/min 01/08/24 06:07
Lactic Acid Cancelled 01/08/24 23:42
Total Bilirubin 1.3 mg/dl (0.2-1.3) 01/08/24 05:10
AST 42 U/L (14-36) H 01/08/24 05:10
ALT 31 U/L (0-35) 01/08/24 05:10
Alkaline Phosphatase 170 U/L (38-126) H 01/08/24 05:10
C-Reactive Protein 145.00 mg/L (0.0-10.00) H 01/07/24 17:23
Most recent labs reviewed.
Micro Results:
01/06/24 10:46 Blood Culture - Preliminary
Blood/Venous No Growth in 48 hours- Final report to follow
01/06/24 10:10 Blood Culture - Preliminary
Blood/Venous No Growth in 48 hours- Final report to follow
01/04/24 CXR: Nasogastric tube in place terminating within a moderate-sized hiatal hernia. Small bilateral pleural effusions with adjacent mild compressive subsegmental atelectasis in the lower lobes of both lungs.
01/04/24 CT a/p: There is a small bowel obstruction. The point of transition is in the left lower quadrant but difficult to isolate. There is thickening of the decompressed loops of small bowel extending to the ileostomy.
There is fluid in the abdomen and pelvis which may be related to recent surgery, versus ascites.
01/04/24 LE venous doppler: no DVT
--- NOTE | 2024-01-08 13:40 | W.PN.CRS1 ---
Today's Communication / Plan
-
TPN
NG tube
Assessment/Plan
-
83 yo female who is now POD #12 ex lap with total abdominal colectomy and end ileostomy creation for ischemia who was d/c'd to inpatient rehab on 01/02 but presents again with nausea and vomiting at rehab center. Was initially tolerating diet with
+stool from stoma. CT imaging on presentation highly suggestive of early postoperative small bowel obstruction without discrete transition point easily identified but appears to be likely in the left lower quadrant. Few small residual bubbles of
free air related to recent laparotomy. Simple appearing free fluid in the right paracolic gutter region, perihepatic and pelvis, no rim enhancement, no air bubbles within it to suggest abscess or infectious component.
AFVSS
WBC 7.0, now normal
--NG tube placement by nurse. If unable to place, will consult GI for endoscopic insertion
--Will follow for nonoperatively for improvement at this time with bowel rest/decompression
--ABX as per ID
--Analgesics prn, avoid narcotics
--OOB/Ambulate as able
--c/w IVF
--VTE ppx with heparin sq
--Continue daily TPN.
Subjective Data
Subjective Data
Date of Service: January 08, 2024
Patient states that she vomited a few times last night. She is nauseous right now. The NG tube was removed overnight. She has some bowel sweat in her ileostomy bag.
Objective Data
-
Vital Signs
Temp Pulse Resp BP Pulse Ox
99.0 F 100 23 100/50 96
01/08/24 11:00 01/08/24 06:00 01/08/24 06:00 01/08/24 11:57 01/08/24 08:00
Intake & Output
01/07/24 01/08/24 01/09/24
06:59 06:59 06:59
Intake Total 2660 / 2660 940 / 940 320 / 320
Output Total 3050 / 3050 2650 / 2650 800 / 800
Balance -390 / -390 -1710 / -1710 -480 / -480
Intake:
Oral fluids 120 / 120
IV fluids (Total) 1709 / 1709 250 / 250
IV piggybacks 680 / 680 290 / 290 320 / 320
TPN/PPN 310 / 310
Amount instilled into GI Tube ( 150 / 150 90 / 90
Total)
Cook Sump 150 / 150 90 / 90
Output:
Liquid stool amount 800 / 800 150 / 150 800 / 800
Ileostomy 800 / 800 150 / 150 800 / 800
Gastrointestinal tube output ( 750 / 750 1400 / 1400
Total)
Cook Sump 750 / 750 1400 / 1400
Urine, Voided 1500 / 1500 900 / 900
Urostomy output 200 / 200
Other:
Number of approximated MODERATE 1
amounts of urine
Number of approximated LARGE 1
amounts of urine
Lab Results
01/08/24 06:07
01/08/24 06:07
Physical Exam
-
General: No Acute Distress and AOx3
Abdomen: Soft, Non Distended, Non Tender and Other (Ileostomy warm and pink with thin bilious output)
Skin: Warm and Dry
--- NOTE | 2024-01-08 14:27 | CON.GI ---
Consultation
-
Date/Time Consultation Requested: 01/08/24
Date/Time Consultation Performed: 01/08/24
Requesting Provider: Dr. López
Performing Provider: Dr. Aly
Reason for Consultation: NGT placement
Medical History
Chief Complaint / HPI
Chief Complaint: vomiting
History of Present Illness:
Diya is an 83-year-old female with multiple medical issues. She is postop day 12 status post exploratory laparotomy with total abdominal colectomy and end ileostomy for ischemia. She was discharged to a rehab then came back after 1 night
because of emesis. CT scan was concerning for small bowel obstruction, leukocytosis and was admitted for management of her small bowel obstruction. Because of the vomiting and NG tube was placed but unfortunately she has a good sized hiatal hernia
and the NG tube was not able to get through it. Multiple attempts were tried.
She initially was tolerating her diet and was having stool from the stoma.
Patient is currently comfortable with her 2 daughters and at bedside. She denies any nausea or vomiting. She feels comfortable. She would really like to hold off on the NG tube if possible
Past Medical History
Past Medical History: Other (Paroxysmal atrial fibrillation, chronic Eliquis anticoagulation, sick sinus syndrome, hypertension, hyperlipidemia, GERD, hypothyroidism, arthritis)
Past Surgical History: Other (Appendectomy, total colectomy with end ileostomy on 12/27/2023 for ischemia, CTI ablation, right hip hemiarthroplasty)
Social History
Tobacco: Former Smoker
Alcohol: None
Personal:
Living: With Family
Employment: Retired
Family History
Family History: Diabetes
Allergies / Home Medications
Allergy/AdvReac Type Severity Reaction Status Date / Time
amlodipine Allergy Nausea Verified 01/07/24 21:43
doxycycline Allergy Hives Verified 12/24/23 06:30
hydrocodone [From Vicodin] Allergy Vomiting Verified 01/07/24 21:43
metoprolol [From Lopressor] Allergy Dizzy Verified 01/07/24 21:43
sulfamethoxazole Allergy Rash Verified 12/24/23 06:30
[From Bactrim]
trimethoprim [From Bactrim] Allergy Rash Verified 12/24/23 06:30
�Medication �Instructions �Recorded
diltiazem HCl 120 mg 120 mg PO DAILY #30 caps 03/24/21
capsule,extended release 24 hr
gabapentin 300 mg capsule 300 mg PO DAILY #30 caps 03/24/21
apixaban 2.5 mg tablet (Eliquis) 2.5 mg PO BID Blood Clot 12/26/23
Prevention/Tx
levothyroxine 75 mcg tablet 75 mcg PO DAILY AT 0700 Thyroid 12/26/23
prednisone 20 mg tablet 10 mg PO Q48H Anti-Inflammatory 12/26/23
Ampicillin/Sulbactam 3 G [Unasyn] 240 mls/hr IV Q6H Infection 01/03/24
3 gm
multivitamin with folic acid 400 1 tab PO DAILY 01/03/24
mcg tablet (Tab-A-Taz)
nystatin 100,000 unit/mL oral 5 ml PO QID Infection #60 mL 01/03/24
suspension
pantoprazole 40 mg tablet,delayed 40 mg PO DAILY #14 tabs 01/03/24
release
potassium, sodium phosphates 280 1 packet PO DAILY Supplement #5 ea 01/03/24
mg-160 mg-250 mg oral powder
packet (Phosphorous Supplement)
prednisone 10 mg tablet 10 mg PO QPM #14 tabs 01/03/24
acetaminophen 500 mg tablet 1,000 mg PO Q8H mild pain 01/04/24
(Tylenol Extra Strength)
ondansetron HCl 4 mg tablet 4 mg PO Q8H PRN NAUSEA/VOMITING 01/04/24
therapeutic multivitamin 1 tab PO DAILY 01/04/24
Review of Systems
-
History Source: Patient
Cardiac: Reports No Symptoms
Abdomen/GI: Reports No Symptoms
Vital Signs
Temp Pulse Resp BP Pulse Ox
99.0 F 100 23 100/50 96
01/08/24 11:00 01/08/24 06:00 01/08/24 06:00 01/08/24 11:57 01/08/24 08:00
Physical Exam
Exam
General: No Apparent Distress and Comfortable
Respiratory: Clear
GI: Soft, Non Tender and Other (Ostomy in the right lower quadrant with green stool and liquid)
Neuro: AO x 3
Psych: Calm
Results
WBC 7.0 10^3/uL (4.8-10.8) 01/08/24 06:07
Hgb 9.2 g/dL (12.0-16.0) L 01/08/24 06:07
Hct 26.0 % (37.0-47.0) L 01/08/24 06:07
MCV 96.7 fL (81.0-99.0) 01/08/24 06:07
Plt Count 390 10^3/uL (130-400) 01/08/24 06:07
Absolute Neuts (auto) Cancelled 01/08/24 06:07
PT 14.7 Sec (11.4-14.6) H 01/04/24 18:30
INR 1.17 01/04/24 18:30
APTT 25.2 Sec (23.4-35.0) 01/04/24 18:30
Sodium 133 mmol/L (135-145) L 01/08/24 06:07
Potassium 3.7 mmol/L (3.5-5.1) D 01/08/24 06:07
Chloride 106 mmol/L (98-107) 01/08/24 06:07
Carbon Dioxide 21 mmol/L (22-30) L 01/08/24 06:07
BUN 23 mg/dl (7-17) H 01/08/24 06:07
Creatinine 1.0 mg/dL (0.6-1.0) 01/08/24 06:07
Calcium 7.6 mg/dl (8.4-10.2) L 01/08/24 06:07
Total Bilirubin 1.3 mg/dl (0.2-1.3) 01/08/24 05:10
AST 42 U/L (14-36) H 01/08/24 05:10
ALT 31 U/L (0-35) 01/08/24 05:10
Alkaline Phosphatase 170 U/L (38-126) H 01/08/24 05:10
Diagnostic Image Results:
Prior GI Procedures:
EGD:
Colonoscopy:
Assessment / Plan
-
Diya is an 83-year-old female postop day #12 total abdominal colectomy and end ileostomy creation for ischemia discharged to inpatient rehab but returns with nausea and vomiting concern for small bowel obstruction versus inflammatory changes with
difficulty with an NG tube because of the hiatal hernia. GI called to place the NG tube
--- I discussed the case with Dr. López
-- The patient is currently asymptomatic from a nausea vomiting standpoint with the last episode of emesis last night
-- Currently will hold off on the NG tube since she has good ostomy output and is currently without vomiting or nausea
-- I told her we can place this endoscopically if necessary but would be ideal to do it under fluoroscopy where she would not need significant sedation
--- New positive troponins today, no chest pain. Cardiology involved. They are following troponins no ischemic changes on EKG per cardiology. Cardiology believes it is likely nonischemic troponin elevation in the setting of acute illness.
-- Currently her Eliquis is on hold
-- Please call us back if you need an endoscopically placed NG tube. I would recommend under fluoroscopy first considering its less sedation
Total Time Spent with Patient (in minutes): 25
Data Reviewed
-
CT Scan: Report Reviewed by me
Old Records: Reviewed
Time spent with patient (in minutes): 40
-
-
Thank you for consultation and allowing me to participate in the patient's care. Please call the [facility] physician during the after hours with any questions or concerns.
--- NOTE | 2024-01-08 14:57 | W.PN.NEPH.PH ---
Today's Communication / Plan
-
- sign off
Assessment/Plan
-
IMP:
Recurrent small bowel obstruction-Status post colectomy for necrotic bowel after period of obstipation constipation/end ileostomy 12/26
Bilateral pleural effusion/peripheral edema
Enterococcal bacteremia
Paroxysmal atrial fibrillation
Leukocytosis
Hyponatremia
Hematemesis
Polymyalgia rheumatica by [id number]-hxlvcedny and had been undergoing steroid taper to her usual dosage of prednisone every 48
Hypothyroidism
HTN
Dyslipidemia
PLan:
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
She also seem to have hypervolemia with high BNP, pleural effusion on CXR on admit with normal renal function
suspect current worsening sodium likely multifactorial-GI loss, hypervolemia, SIADH
now on TPN
K replacement PRN
IV lasix PRN
diet per surgery
BP stable
edema is mostly dependant with hypoalbuminemia
monitor daily wts, labs
stable renal function
abx per ID
nephrology will sign off at this time, please call back with further questions
d/w patient and family
-
-
Date of Service: January 08, 2024
CC / HPI / ROS
-
Chief Complaint:
hyponatremia
History of Present Illness:
Na now improved to 133 s/p 2 doses of lasix
Review of Systems:
feeling well, no complaints
Labs
-
Labs:
WBC 7.0 10^3/uL (4.8-10.8) 01/08/24 06:07
RBC 2.69 10^6/uL (4.20-5.40) L 01/08/24 06:07
Hgb 9.2 g/dL (12.0-16.0) L 01/08/24 06:07
Hct 26.0 % (37.0-47.0) L 01/08/24 06:07
Plt Count 390 10^3/uL (130-400) 01/08/24 06:07
Sodium 133 mmol/L (135-145) L 01/08/24 06:07
Potassium 3.7 mmol/L (3.5-5.1) D 01/08/24 06:07
Chloride 106 mmol/L (98-107) 01/08/24 06:07
Carbon Dioxide 21 mmol/L (22-30) L 01/08/24 06:07
BUN 23 mg/dl (7-17) H 01/08/24 06:07
Creatinine 1.0 mg/dL (0.6-1.0) 01/08/24 06:07
eGFR 55.55 01/08/24 06:07
Glucose 221 mg/dl (70-99) H 01/08/24 06:07
Calcium 7.6 mg/dl (8.4-10.2) L 01/08/24 06:07
Phosphorus 4.8 mg/dl (2.5-4.5) H 01/08/24 05:10
Adq-Z-Sfjcqqnvbky Pept 2890 pg/ml 01/07/24 17:23
Albumin 2.2 g/dl (3.5-5.0) L 01/08/24 05:10
Physical Exam
-
Vital Signs:
Vital Signs
Temp Pulse Resp BP Pulse Ox
99.0 F 100 23 100/50 96
01/08/24 11:00 01/08/24 06:00 01/08/24 06:00 01/08/24 11:57 01/08/24 08:00
Cardiovascular:: Regular rate and rhythm
Respiratory:: Bilateral: Coarse
Lung Excursion:: Normal
Abdomen:: Soft and Tender
Bowel Sounds:: Decreased
Extremity Edema:: +3: Bilateral:
Keith Catheter: No
[2024-01-08] MEDS: LEVOTHROID 35 MCG IV (18:12)
[2024-01-08 18:30] LABS: Glucose - Point of Care 202 mg/dl (70-99)
[2024-01-08 18:58] LABS: Troponin I 0.044 ng/ml
[2024-01-08] MEDS: Parenteral Nutrition, Central 870 IV (21:02)
[2024-01-09] VITALS (16 sets, daily range): BP systolic 94–115; BP diastolic 48–76; PULSE 86; O2SAT 96; BMI 21.4
[2024-01-09] MEDS: NOVOLOG FLEXPEN-LOW RESISTANCE 1 UNITS SC (00:19)
[2024-01-09] MEDS: UNASYN IV ×4 (00:20→18:09)
[2024-01-09] MEDS: LOPRESSOR 5 MG IV (00:21)
[2024-01-09 00:26] LABS: Glucose - Point of Care 190 mg/dl (70-99)
[2024-01-09 05:24] LABS: Blood Urea Nitrogen 36 mg/dl (7-17); Calcium 8.2 mg/dl (8.4-10.2); Carbon Dioxide 25 mmol/L (22-30); Chloride 105 mmol/L (98-107); Estimated Creatinine Clearance 29 ml/min; Glucose 129 mg/dl (70-99); Magnesium 2.3 mg/dl (1.6-2.3); Phosphorus 2.3 mg/dl (2.5-4.5); Potassium 3.3 mmol/L (3.5-5.1); Sodium 136 mmol/L (135-145); eGFR 44.64
--- NOTE | 2024-01-09 05:48 | PTCARENOTE ---
Patient able to sleep overnight. Pt can be forgetful to time of day and date. Re-oriented as needed. Denies nausea, vomiting or pain in general. Ileostomy with good output. On room air, left base lung with coarse crackles. Repositioned throughout
the night; encouraged to shift weight in bed as tolerated. Sacrum intact with foam Mepilex for protection. Fiorella care done, purewick changed. Urine is aure in color. Tolerating ice chips and TPN. PICC line lumens are patent, blood return present, &
dressing intact. Tele showing NSR. BP soft. LE with +2-3 edema, elevated on pillows. SCDs on. Patient's toes are purple in color and cool to the touch. Fingers are improved and more warm and pink. Call shah, cell phone and tray table within reach.
Daughter at bedside this morning.
[2024-01-09] MEDS: NOVOLOG FLEXPEN-LOW RESISTANCE SC ×2 (05:58→13:02)
[2024-01-09 05:59] LABS: Glucose - Point of Care 145 mg/dl (70-99)
[2024-01-09] MEDS: LOPRESSOR IV ×3 (06:02→18:21)
[2024-01-09] MEDS: KCL 160 MEQ IV (07:33)
[2024-01-09] MEDS: FLUSH (NSS) 2 FLUSH IV (07:33)
--- NOTE | 2024-01-09 07:54 | W.PN.UPDATE ---
Update Note
Progress Note Update
Quick visit to assess patient's nausea vomiting. She has had no issues since the last 24 hours. Will hold off on NG tube placement. Will sign off. Please call with questions. Colorectal surgery team aware.
--- NOTE | 2024-01-09 08:54 | W.PN.CRS1 ---
Today's Communication / Plan
-
Advance to clear liquids
Patient will work with PT today
Assessment/Plan
-
83-year-old female with PMH of A-fib, SSS, HTN, HLD, GERD, hypothyroid who presented with mesenteric ischemia and underwent a TAC with end ileostomy on 12/27/[address] López, eventually discharged on 01/02; she came back to the hospital the next day
with N/V and was found to have an SBO on CT; being treated nonoperatively with bowel rest, admitted to the medical service
�Now with return of bowel function; advance to clear liquids; continue TPN
� Pain control Tylenol and/or Toradol, avoid narcotics if possible
� Continue IV Unasyn; appreciate ID
� Continue DVT PPx with SQH
� OOB/IS, appreciate PT
� Appreciate cardiology
� Appreciate hospitalist
Subjective Data
Subjective Data
Date of Service: January 09, 2024
No overnight events.
Denies pain.
Denies nausea/vomiting. Feeling hungry this morning.
Having ostomy function. +voiding
Objective Data
-
Vital Signs
Temp Pulse Resp BP Pulse Ox
98.2 F 75 16 102/55 94
01/09/24 03:00 01/09/24 06:00 01/09/24 06:00 01/09/24 06:00 01/09/24 07:48
Intake & Output
01/08/24 01/09/24 01/10/24
06:59 06:59 06:59
Intake Total 940 / 940 680 / 680
Output Total 2650 / 2650 2650 / 2650 300 / 300
Balance -1710 / -1710 -1970 / -1970 -300 / -300
Intake:
IV fluids (Total) 250 / 250
IV piggybacks 290 / 290 680 / 680
TPN/PPN 310 / 310
Amount instilled into GI Tube ( /
Total)
Mckinley Sump 90 /
Output:
Liquid stool amount 150 / 150 2400 / 2400 300 / 300
Ileostomy 150 / 150 2400 / 2400 300 / 300
Gastrointestinal tube output ( 1400 / 1400
Total)
Mckinley Sump 1400 / 1400
Urine, Voided 900 / 900 250 / 250
Urostomy output 200 / 200
Lab Results
01/08/24 06:07
01/09/24 04:21
Physical Exam
-
General: No Acute Distress and AOx3
HEENT: Grossly Normal
Abdomen: Soft, Non Distended, Non Tender, No Guarding, No Rebound and Other (Ostomy pink and productive of liquid succus)
Skin: Warm and Dry
Wound: No Signs of Infection, No Skin Erythema and Other (No drainage; jessica in place)
--- NOTE | 2024-01-09 09:06 | W.PN.ID1 ---
Date of Service
Date of Service: January 09, 2024
Today's Communication
Continue Unasyn
Assessment / Plan
# Recent Enterococcal bacteremia due to ischemic bowel
- Bacteremia cleared as of 12/27
--> Continue Unasyn through 01/11/24 to complete 2 weeks course.
# Acute post-op small bowel obstruction
- trial of clears today
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
- Conservative management per Colorectal
- Improving
#Leukocytosis
- improved
- Suspect due to acute SBO
- Steroid dose decreased as per hospitalist
- Follow wbc.
#Other:
Renal insufficiency
Atrial fibrillation
HTN
Dyslipidemia
Sciatica
Lumbar spinal stenosis
PMR
Trigeminal neuralgia
����������������������������������������������������������
Chief Complaint
-: Leukocytosis
Subjective / Review of Systems
Review of Systems: No Fever, No Chills, No Abdominal Pain and No Nausea
Vital Signs / Physical Exam
Vital Signs
Vital Signs
Temp Pulse Resp BP Pulse Ox
98.2 F 75 16 102/55 94
01/09/24 03:00 01/09/24 06:00 01/09/24 06:00 01/09/24 06:00 01/09/24 07:48
Physical Exam
Constitutional: No Acute Distress, Comfortable, Chronically Ill, Non-toxic and Other (frail)
Eyes: No Conjunctival Hemorrhage and Sclera Anicteric
Cardiovascular: S1/S2; Negative S3/S4
Pulmonary: Clear and Non Labored
Gastrointestinal: Soft, Non Tender, Non Distended, Decreased Bowel Sounds and Other
Extremities: Edema; Negative Cyanosis or Erythema
Neurological: AO x 3
Psychological: Calm
Objective Data
Lab Data
Lab Results
04/09/24 06:07
01/09/24 04:21
PT 14.7 Sec (11.4-14.6) H 01/04/24 18:30
INR 1.17 01/04/24 18:30
APTT 25.2 Sec (23.4-35.0) 01/04/24 18:30
Estimated Creat Clear 29 ml/min 01/09/24 04:21
Lactic Acid Cancelled 01/08/24 23:42
Total Bilirubin 1.3 mg/dl (0.2-1.3) 01/08/24 05:10
AST 42 U/L (14-36) H 01/08/24 05:10
ALT 31 U/L (0-35) 01/08/24 05:10
Alkaline Phosphatase 170 U/L (38-126) H 01/08/24 05:10
C-Reactive Protein 145.00 mg/L (0.0-10.00) H 01/07/24 17:23
Most recent labs reviewed.
Micro Results:
01/06/24 10:46 Blood Culture - Preliminary
Blood/Venous No Growth in 48 hours- Final report to follow
01/06/24 10:10 Blood Culture - Preliminary
Blood/Venous No Growth in 48 hours- Final report to follow
01/04/24 CXR: Nasogastric tube in place terminating within a moderate-sized hiatal hernia. Small bilateral pleural effusions with adjacent mild compressive subsegmental atelectasis in the lower lobes of both lungs.
01/04/24 CT a/p: There is a small bowel obstruction. The point of transition is in the left lower quadrant but difficult to isolate. There is thickening of the decompressed loops of small bowel extending to the ileostomy.
There is fluid in the abdomen and pelvis which may be related to recent surgery, versus ascites.
01/04/24 LE venous doppler: no DVT
[2024-01-09] MEDS: HEPARIN 5000 UNITS SC ×2 (10:17→22:11)
[2024-01-09] MEDS: NSS (PRESERVATIVE FREE) 10 ML IV ×2 (10:18→22:12)
[2024-01-09] MEDS: SOLU-CORTEF 25 MG IV (10:18)
[2024-01-09] MEDS: PROTONIX IV 40 MG IV ×2 (10:19→22:12)
--- NOTE | 2024-01-09 11:08 | W.PN.CARDCBS ---
Today's Communication / Plan
-
No further chest pains. Troponin has decreased and is likely nonischemic myocardial injury.
Will check limited echocardiogram today.
Stop IV Lopressor and start p.o. Cardizem today.
Remains in sinus rhythm. Resume Eliquis when okay with surgery.
Weight is down and did well after Lasix 20 mg IV x 1.
Impression / Plan
-
PCP: Dr. David Valdez
Cardiology: Dr. Ku
Impression:
Admitted with recurrent SBO 01/04/24
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
Chest pain
Elevated Troponin
Paroxysmal atrial fibrillation and typical atrial flutter
s/p PVI, CTI flutter ablation, 08/25/19
occurrence with RVR 12/26/23 then spontaneously converted to SR 12/29/23, recurred with Afib 12/31/23 and then spontaneously converted to SR again 01/01/24
Chronic Eliquis anticoagulation
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
HTN
HLD
GERD
Hypothyroidism
Arthritis
FARIDA 08/19/2019: EF 60 to 65%, mild MR
Echo 12/31/23: EF 65-70%, mild conc LVH, no , mild TR with PAP 30-35 mmHg
Plan:
-Patient came to [facility] from [facility] with vomiting 01/04/24 and was admitted with recurrent SBO, cardiology was consulted today for chest pain and elevated Troponin. Patient came to [facility] with abdominal pain 12/24/23 and after an abdominal u/s and CXR
she was discharged to home. Patient returned to [facility] 12/26/23 with ongoing abdominal pain and constipation and was admitted. Patient had patchy necrosis of the colonic wall on colonoscopy and then had total abdominal colectomy with end ileostomy for
ischemia on 12/27/23. Patient was followed by ID for Enterococcal bacteremia. Cardiology was consulted during that admission for recurrence of known paroxysmal Afib and flutter. Patient spontaneously converted to SR and then had another recurrence
with spontaneous conversion and ultimately was in SR at time of discharge to [facility]. The plan was to manage any recurrences of Afib with rate control due to interruptions in Eliquis. Patient went to [facility] 01/03/24, but started with vomiting early
on 01/04/24 and was sent to [facility] where she was admitted with SBO. Cardiology is consulted for an episode of chest pain during repositioning of NGT yesterday. Initial Troponin was 0.025 then recheck this AM it was 0.067. No recurrence of chest pain.
NGT now removed.
-ECG reviewed by me without acute ischemic change. Also patient is in SR on ECG.
-Initial Troponin was 0.025 and then up to 0.067. Repeat troponin was improved and down to 0.04.
-Troponin elevation most likely a nonischemic myocardial injury Troponin elevation due to acute illness.
-Will check follow-up echo today.
-Patient with known paroxysmal Afib/flutter and is currently in SR. we will stop IV Lopressor resume Cardizem 120 p.o. daily.
-Usual dose of Eliquis 2.5 mg BID is on hold. Hgb stable. Eventually resume when stable from a CV perspective.
-Nephrology following for hyponatremia and Lasix 20 mg IV x1 given 01/07/24 evening. Sodium improved to 136.
-She has diuresed well.
Progress Note - Record Systems Analyst
Subjective
Date of Service: January 09, 2024
Feeling better. Now tolerating p.o. meds and some liquids. No palpitations or A-fib.
Objective
Labs:
01/08/24 06:07
01/09/24 04:21
Labs
Hgb 9.2 g/dL (12.0-16.0) L 01/08/24 06:07
Hct 26.0 % (37.0-47.0) L 01/08/24 06:07
Plt Count 390 10^3/uL (130-400) 01/08/24 06:07
PT 14.7 Sec (11.4-14.6) H 01/04/24 18:30
INR 1.17 01/04/24 18:30
APTT 25.2 Sec (23.4-35.0) 01/04/24 18:30
Sodium 136 mmol/L (135-145) 01/09/24 04:21
Potassium 3.3 mmol/L (3.5-5.1) L 01/09/24 04:21
BUN 36 mg/dl (7-17) H 01/09/24 04:21
Creatinine 1.2 mg/dL (0.6-1.0) H 01/09/24 04:21
Glucose 129 mg/dl (70-99) H 01/09/24 04:21
Troponins
01/07/24 01/08/24 01/08/24
17:23 09:57 18:12
Troponin I 0.025 0.067 H* 0.044 H*
Vital Signs and I&O:
Vital Signs
Temp Pulse Resp BP Pulse Ox
97.4 F 75 16 102/55 94
01/09/24 07:05 01/09/24 06:00 01/09/24 06:00 01/09/24 06:00 01/09/24 07:48
Vital Signs
Temp Pulse Resp BP Pulse Ox
97.4 F 75 16 102/55 94
01/09/24 07:05 01/09/24 06:00 01/09/24 06:00 01/09/24 06:00 01/09/24 07:48
Intake & Output
01/07/24 01/08/24 01/09/24 01/10/24
06:59 06:59 06:59 06:59
Intake Total 2660 / 2660 940 / 940 680 / 680
Output Total 3050 / 3050 2650 / 2650 2650 / 265 300 / 300
Balance -390 / -390 -1710 / -1710 -1970 / -1970 -300 / -300
Physical Exam
Physical Exam
GEN: No distress, awake, Ox3
HEENT: supple, anicteric, mmm
LUNGS: scatt rhonchi
CV: Reg, S1/S2, 1/6 syst LSB, no gallop
ABD: soft, BS+, mild incisional tenderness
EXT: No edema
NEURO: Gross non-focal
SKIN: No rash
--- NOTE | 2024-01-09 11:46 | PTCARENOTE ---
Patient tolerated small amount of clear liquids. Denies any nausea. Ileostomy draining adequate amounts of green/brown liquid. Patient has positive bowel sounds. Corby intact, no drainage. Patient denies any incisional pain. TPN infusing as
ordered via right d/l PICC. BP's soft but stable. SR on monitor heart rates 70-80's, low 100's with exertion. Family in room at bedside. Call shah in reach.
[2024-01-09 12:57] LABS: Glucose - Point of Care 120 mg/dl (70-99)
--- NOTE | 2024-01-09 14:08 | W.PN.HOSP.TC ---
Today's Communication/Plan
-
Clear liquid diet today. IV antibiotics.
Assessment / Plan
Assessment / Plan
Physical exam:
General: Acutely ill
HEENT: Normocephalic, Atraumatic and Moist Mucous Membranes
Respiratory: Clear to Auscultation; Negative Wheezes, Rales or Rhonchi
Cardiac: Regular Rhythm and S1/S2
GI: Soft, Mild Tender and Nondistended. Ileostomy in place.
Musculoskeletal: No Clubbing, No Cyanosis and No Edema
Neuro: Awake, Alert and Oriented
Psych: Calm
A/P:
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
-Clear liquid diet per colorectal surgery today
-Pain control
-On TPN
-On PPI
-WBC 7 and hemoglobin 9.2 and Plt 390 on 01/07--->repeat cbc in am
-Discussed briefly with family at bedside
Recent enterococcal bacteremia in the setting of ischemic bowel:
-Continue IV Unasyn
-ID on board
Elevated troponin:
- Elevated troponin due to non-ischemic myocardial injury
Paroxysmal atrial fibrillation and typical atrial flutter:
-On normal sinus rhythm
-Cardiology recommends to change IV Lopressor to p.o. Cardizem
-Plan for limited echo
-Anticoagulation when cleared by surgery
Volume overload in the setting of hypoalbuminemia:
-Lasix as needed
Hypothyroidism:
-On IV Synthroid
-Change to oral when tolerating oral
Polymyalgia rheumatica:
-Chronically on steroids
-Recommend to change IV steroids to oral steroids if tolerating oral
Hyponatremia:
-Resolved
Hypokalemia:
-Replete and trend
Renal insufficiency:
-Creatinine 1.2 today
DVT prophylaxis:
Heparin SQ
CODE STATUS:
Full code
Total time spent on today's encounter was 52 minutes which included time spent in counseling the patient/family regarding diagnosis and treatment plan as listed above, goals of care, and symptom management. Case was discussed with nursing staff,
specialists, and care coordinators/case management. All labs and imaging personally reviewed by me. Remainder the time spent in detailed review of previous records, lab data, imaging, and other medical provider documentation.
Anticipated Discharge: 24 - 48 hours
Subjective/Interval History
-
Date of Service: January 09, 2024
No nausea or vomiting. No abd pain, tolerating CLD small amounts, ostomy functioning.
Objective Data
-
Labs:
Laboratory Results
01/09/24
04:21
Sodium 136
Potassium 3.3 L
Chloride 105
Carbon Dioxide 25
BUN 36 H
Creatinine 1.2 H
Glucose 129 H
Calcium 8.2 L
Vital Signs:
Vital Signs
Temp Pulse Resp BP Pulse Ox
97.4 F 84 21 115/61 94
01/09/24 07:05 01/09/24 12:00 01/09/24 12:00 01/09/24 12:00 01/09/24 07:48
I&O
01/08/24 01/09/24 01/10/24
06:59 06:59 06:59
Intake Total 940 / 940 680 / 680 400 / 400
Output Total 2650 / 2650 2650 / 2650 640 / 640
Balance -1710 / -1710 -1970 / -1970 -240 / -240
--- NOTE | 2024-01-09 16:00 | PTCARENOTE ---
Patient worked with PT/OT today. OOB to chair with assistance x2 and walker. Patient tolerated chair for half an hour.
[2024-01-09] MEDS: LEVOTHROID 35 MCG IV (18:10)
[2024-01-09] MEDS: NOVOLOG FLEXPEN-LOW RESISTANCE 2 UNITS SC (18:22)
[2024-01-09 18:34] LABS: Glucose - Point of Care 201 mg/dl (70-99)
[2024-01-09 21:55] LABS: Glucose - Point of Care 176 mg/dl (70-99)
--- NOTE | 2024-01-09 22:01 | PTCARENOTE ---
Found patient tachypneic respirations 30s, pointing to upper chest and right side of her neck. Appears anxious. When asked if she has any pain or nausea pt unable to respond. Moaning intermittently. Pt with a blank stare, staring at the wall.
Follows some commands. Equal hand crane helper, pupils 3mm equal round and reactive. When asked to smile, pt showing right facial droop. When sticking tongue out of mouth, tongue deviates to the right. Rapid response called for change in mental status. 3L
applied, Sp02 97-99%. Lungs with bilateral crackles, left worse than right. Patient's speech slowly coming back but not at baseline. CBG WNL. EKG done. Pt pointing in her mouth to the right back molar. When asked why she is pointing to her mouth pt
stated 'I don't know'. offered to brush teeth. Emotional support provided. Rapid response ended. Pt kept on IMU. No change to plan of care.
[2024-01-09] MEDS: Parenteral Nutrition, Central 870 IV (22:23)
--- NOTE | 2024-01-09 22:23 | W.PN.UPDATE ---
Addendum entered and electronically signed by RAPHAEL Espana 01/10/24 05:04:
lactic 3.8- cont to trend
no obvious signs of infection. afebrile.
will howell culture: recheck ua/cs, stool for cdiff ( has ileostomy and been on abx for 2 weeks)
abd soft and non tender. denies nausea or pain
recheck blood cultures, check covid , flu, procal
Original Note:
Update Note
Progress Note Update
2129 evaluated pt at bedside for GAS CONTROLLER due to change in MS
Per nurse pt noted to be tachypneic on monitor.(rr 20-30s). RN noted pt blankly staring and not following commands like she normally does. ? facial droop and tongue deviation
On eval, pt is following commands. Able to state where she is and who she is appropriately. Legs weak. Arms strength good. No tongue deviation noted. No facial droop noted.
Pt appears anxious and panicked. She denies pain, or nausea. She does keep picking at right upper teeth. No deformities noted. Pt mentions 'tube'( pt had NGT ). I told her she is doing well over last few nights and does not need NGT. She seems
relieved. She is scared she will need it again. I asked if this fear made her scared and anxious and she said yes.
LABS ordered: cbc, bmp, mag , pcxr
cxr by my read no change from previous
WBC drop significantly from 7.0 to 1.4 -- unclear reason does not appear septic
0200 RN noted bp running more soft than previously. 80's/50s will try a small nss bolus and reassess bp
checking lactic acid
[2024-01-09 23:35] LABS: Hematocrit 25.4 % (37.0-47.0); Hemoglobin 8.8 g/dL (12.0-16.0); Mean Corp Hgb Conc. 34.6 g/dL (33.0-37.0); Mean Corpuscular Hgb 34.2 pg (27.0-31.0); Mean Corpuscular Volume 98.8 fL (81.0-99.0); Mean Platelet Volume 10.1 fL (7.4-10.4); Platelet Count 293 10^3/uL (130-400); Red Blood Cell Count 2.57 10^6/uL (4.20-5.40)
[2024-01-09 23:48] LABS: Blood Urea Nitrogen 38 mg/dl (7-17); Calcium 8.7 mg/dl (8.4-10.2); Carbon Dioxide 21 mmol/L (22-30); Chloride 113 mmol/L (98-107); Estimated Creatinine Clearance 31 ml/min; Glucose 179 mg/dl (70-99); Magnesium 2.3 mg/dl (1.6-2.3); Potassium 3.1 mmol/L (3.5-5.1); Sodium 139 mmol/L (135-145); eGFR 49.55
[2024-01-09 23:50] LABS: White Blood Cell Count 1.4 10^3/uL (4.8-10.8)
[2024-01-10] VITALS (23 sets, daily range): BP systolic 82–118; BP diastolic 46–72; BMI 21.6
[2024-01-10] MEDS: LOPRESSOR IV ×4 (00:23→18:41)
[2024-01-10] MEDS: UNASYN IV ×3 (00:23→13:47)
[2024-01-10 00:58] LABS: Glucose - Point of Care 200 mg/dl (70-99)
[2024-01-10] MEDS: KCL 270 MEQ IV (00:58)
[2024-01-10] MEDS: NOVOLOG FLEXPEN-LOW RESISTANCE 2 UNITS SC ×2 (01:03→06:06)
[2024-01-10 01:04] LABS: Band Neutrophils 25 % (0-3); Eosinophils 1 % (0-6); Monocytes 4 % (2-9); Segmented Neutrophils 48 % (42-75)
[2024-01-10 01:05] LABS: Metamyelocytes 2 % (-); Myelocytes 1 % (-)
[2024-01-10 01:07] LABS: Anisocytosis 2+; Lymphocytes 19 % (20-51); Normal RBC Morphology No; Nucleated Red Blood Cells 18 (-); Platelets Checked Yes; Total Cells Counted 100
[2024-01-10 01:08] LABS: Polychromasia 1+
[2024-01-10 01:10] LABS: Acanthocytes Occasional; Schistocytes Occasional; Tear Drop Red Blood Cells Occasional
[2024-01-10 01:11] LABS: Ovalocytes 2+
[2024-01-10 01:12] LABS: Target Cells Occasional; Toxic Granulation 1+
[2024-01-10] MEDS: NSS 250 IV ×2 (03:24→09:44)
[2024-01-10 04:00] LABS: Lactic Acid 3.8 mmol/L (0.7-2.0)
[2024-01-10 05:06] LABS: Hematocrit 27.2 % (37.0-47.0); Hemoglobin 8.9 g/dL (12.0-16.0); Mean Corp Hgb Conc. 32.7 g/dL (33.0-37.0); Mean Corpuscular Hgb 34.4 pg (27.0-31.0); Mean Platelet Volume 10.7 fL (7.4-10.4); Platelet Count 276 10^3/uL (130-400); Red Blood Cell Count 2.59 10^6/uL (4.20-5.40); Red Cell Dist. Width 21.9 % (11.5-14.5); White Blood Cell Count 12.8 10^3/uL (4.8-10.8)
[2024-01-10 05:18] LABS: COVID-19 Antigen Negative (Negative)
[2024-01-10 05:37] LABS: Blood Urea Nitrogen 40 mg/dl (7-17); Calcium 8.7 mg/dl (8.4-10.2); Carbon Dioxide 21 mmol/L (22-30); Chloride 116 mmol/L (98-107); Estimated Creatinine Clearance 25 ml/min; Glucose 170 mg/dl (70-99); Magnesium 2.4 mg/dl (1.6-2.3); Potassium 4.4 mmol/L (3.5-5.1); Sodium 142 mmol/L (135-145)
[2024-01-10 05:41] LABS: Glucose - Point of Care 204 mg/dl (70-99)
--- NOTE | 2024-01-10 05:42 | PTCARENOTE ---
Pt hypotensive this morning, SBP 80s. OFFICE MACHINE SERVICE SUPERVISOR aware. 250mL bolus ordered. Lactic acid 3.8. Orders received: multiple labs, albumin, covid test, flu test, c.diff, UA, blood cultures. Attempted to straight cath x2, unsuccessful. Pt unable to void in
bedpan. Bladder scanned for 350mL. Pt is afebrile, speech is slow. NPO at this time. Daughter at bedside this morning and reports pt has hx trigeminal neuralgia. Daughter updated on patient's symptoms overnight.
[2024-01-10] MEDS: ALBUMIN 5% 250 IV (06:00)
[2024-01-10 06:43] LABS: Procalcitonin 25.65 ng/ml (0.0-0.25)
[2024-01-10 06:52] LABS: Absolute Neutrophils -Man Diff 11.9 10^3/uL (1.4-6.5); Band Neutrophils 19 % (0-3); Lymphocytes 6 % (20-51); Monocytes 1 % (2-9); Segmented Neutrophils 74 % (42-75)
[2024-01-10 06:53] LABS: Anisocytosis 1+; Hypochromasia Slight; Normal RBC Morphology No; Platelets Checked Yes; Polychromasia 1+; Total Cells Counted 100
--- NOTE | 2024-01-10 09:09 | CM ---
Patient from [facility] with recent colectomy with ileostomy with Dx Recurrent SBO, Recent bacteremia. Rapid response last evening for change in mental status, speech changes. NPO. TPN. PICC. IV Abx. PT 01/08 recommends skilled rehab. OT
01/08 recommends Acute vs SNF.
Referral placed for probable return to [facility].
CM continuing to follow.
Plan follow up with [facility] about patient's return, when closer to d/c.
[2024-01-10] MEDS: HEPARIN 5000 UNITS SC ×2 (09:45→20:54)
[2024-01-10] MEDS: SOLU-CORTEF 25 MG IV (09:47)
[2024-01-10] MEDS: NSS (PRESERVATIVE FREE) 10 ML IV ×2 (09:47→20:54)
[2024-01-10] MEDS: PROTONIX IV 40 MG IV ×2 (09:47→20:54)
[2024-01-10] MEDS: BenGay-Like 1 APPLIC TOPICAL ×2 (09:49→16:29)
--- NOTE | 2024-01-10 09:57 | W.PN.CRS1 ---
Today's Communication / Plan
-
CT abdomen and pelvis
TPN
Assessment/Plan
-
83-year-old female with PMH of A-fib, SSS, HTN, HLD, GERD, hypothyroid who presented with mesenteric ischemia and underwent a TAC with end ileostomy on 12/27/[address] López, eventually discharged on 01/02; she came back to the hospital the next day
with N/V and was found to have an SBO on CT; being treated nonoperatively with bowel rest, admitted to the medical service
1. Given the events overnight with now abdominal pain, CT abdomen and pelvis with p.o., IV, and rectal contrast were ordered. I spoke to Chayito the supervisor motor vehicle assembly of CT and I also spoke to Dr. Richards to provide them with her story. I also reiterated
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 Her GFR is 37.1. Both Dr. Richards and the the [facility] are aware of this. We will give hydration prior to and after CT. Will touch base with the family after CT has resulted. We advised the patient that to drink oral
contrast if she can but if she cannot, then we will do IV and rectal only.
2. WBC is 12.8 from 1.4 from 7.0. Trend. C. difficile and cultures pending. Urinalysis pending.
3. Hypotension improving but still 90s over 50s. 250 mL normal saline bolus given. I spoke to Dr. Cabrera I will start normal saline at 85 mL/h
4. Pain control Tylenol and/or Toradol, avoid narcotics if possible
5. Continue IV Unasyn; appreciate ID
6. Continue DVT PPx with SQH
7. OOB/IS, appreciate PT
8. Appreciate cardiology
9. Appreciate hospitalist
10. Continue n.p.o. status for now. Will continue TPN.
Subjective Data
Subjective Data
Date of Service: January 10, 2024
Patient had an event last night where she had a change in mental status. Per documentation, she was tachypneic and staring out. Later in the night she was hypotensive and received a normal saline bolus. This morning the patient states she has
some neck pain and some abdominal pain overnight. Her colostomy is warm and functioning.
Objective Data
-
Vital Signs
Temp Pulse Resp BP Pulse Ox
97.8 F 108 28 94/59 99
01/10/24 07:10 01/10/24 06:00 01/10/24 06:00 01/10/24 06:00 01/10/24 02:29
Intake & Output
01/09/24 01/10/24 01/11/24
06:59 06:59 06:59
Intake Total 680 / 680 2662 / 2662
Output Total 2650 / 2650 2155 / 2155
Balance -1970 / -1970 507 / 507
Intake:
Oral fluids 930 / 930
IV fluids (Total) 250 / 250
IV piggybacks 680 / 680 1050 / 1050
TPN/PPN 432 / 432
Output:
Liquid stool amount 2400 / 2400 1515 / 1515
Ileostomy 2400 / 2400 1515 / 1515
Urine, Voided 250 / 250 640 / 640
Lab Results
01/10/24 04:55
01/10/24 04:55
Physical Exam
-
General: No Acute Distress and AOx3
Abdomen: Soft, Non Distended, Non Tender and Other (Ileostomy warm and pink with function)
Incision: Clear, Dry, Intact
[2024-01-10] MEDS: OMNIPAQUE 50 ML PO (10:37)
[2024-01-10] MEDS: OFIRMEV 100 IV (10:38)
--- NOTE | 2024-01-10 11:19 | WOUNDNOTE ---
WOC RN Note: Patient not feeling well. CT scan on order. Stoma pink and budded about 1 1/4 inches diameter. Peristomal skin intact. Appliance changed using Holden wafer # [id number], Mariella seal and Holden pouch # [id number]. RN Portia changed sacral
silicone foam and reports small blanchable red area noted. Skin on heels intact. Heels off bed with pillow. Patient is on a [facility] air bed. Ostomy supplies in room. t/c SPD and ordered a few more applianced, Mariella seals. Next appliance change
due Sunday or Sunday.
[2024-01-10 12:11] LABS: Glucose - Point of Care 165 mg/dl (70-99)
--- NOTE | 2024-01-10 12:40 | W.PN.HOSP.TC ---
Today's Communication/Plan
-
IVF. IV antibiotics. Plan for CT of the abdomen and pelvis today.
Assessment / Plan
Assessment / Plan
Physical exam:
General: Acutely ill
HEENT: Normocephalic, Atraumatic and Moist Mucous Membranes
Respiratory: Clear to Auscultation; Negative Wheezes, Rales or Rhonchi
Cardiac: Regular Rhythm and S1/S2
GI: Soft, Tender and Nondistended. Ileostomy in place.
Musculoskeletal: No Clubbing, No Cyanosis and No Edema
Neuro: Awake, Alert and Oriented
Psych: Calm
A/P:
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
-Back to n.p.o. today per colorectal surgery
-Plan to do CT of the abdomen and pelvis today
-Communicated with colorectal surgery today
-WBC 12.8, hemoglobin 8.9, lactate 3.8
-Pain control
-On TPN
-On PPI
-Discussed with family at bedside
Acute kidney injury:
-Started on IV fluids normal saline at 85 cc/h after bolus this morning.
-Avoid nephrotoxic
-Creatinine 1.4 today
-Repeat renal function in a.m.
Neck pain, likely musculoskeletal:
-Local Bengay
-IV Tylenol as needed
-No need for further workup. Family asked if it is related to PICC line but is unlikely unless position related when it was inserted.
Recent enterococcal bacteremia in the setting of ischemic bowel:
-Continue IV Unasyn
-ID on board
Elevated troponin:
- Elevated troponin due to non-ischemic myocardial injury
Paroxysmal atrial fibrillation and typical atrial flutter:
-On normal sinus rhythm
-Cardiology recommends to change IV Lopressor to p.o. Cardizem when able to tolearate oral
-Plan for limited echo
-Anticoagulation when cleared by surgery
Volume overload in the setting of hypoalbuminemia:
-Lasix as needed. Okay to use ivf hydration for now.
Hypothyroidism:
-On IV Synthroid
-Change to oral when tolerating oral
Polymyalgia rheumatica:
-Chronically on steroids
-Recommend to change IV steroids to oral steroids if tolerating oral
Hyponatremia:
-Resolved
Hypokalemia:
-Replete and trend
DVT prophylaxis:
Heparin SQ
CODE STATUS:
Full code
Total time spent on today's encounter was 52 minutes which included time spent in counseling the patient/family regarding diagnosis and treatment plan as listed above, goals of care, and symptom management. Case was discussed with nursing staff,
specialists, and care coordinators/case management. All labs and imaging personally reviewed by me. Remainder the time spent in detailed review of previous records, lab data, imaging, and other medical provider documentation.
Anticipated Discharge: > 48 hours
Subjective/Interval History
-
Date of Service: January 10, 2024
Patient does not feel well today. She had been hypotensive overnight and nauseous again with abdominal pain. She also complains of neck pain.
Objective Data
-
Labs:
Laboratory Results
01/10/24
04:55
WBC 12.8 H
Hgb 8.9 L
Hct 27.2 L
Plt Count 276
Sodium 142
Potassium 4.4 D
Chloride 116 H
Carbon Dioxide 21 L
BUN 40 H
Creatinine 1.4 H
Glucose 170 H
Calcium 8.7
Vital Signs:
Vital Signs
Temp Pulse Resp BP Pulse Ox
97.8 F 108 28 94/59 99
01/10/24 11:31 01/10/24 06:00 01/10/24 06:00 01/10/24 06:00 01/10/24 02:29
I&O
01/09/24 01/10/24 01/11/24
06:59 06:59 06:59
Intake Total 680 / 680 2662 / 2662
Output Total 2650 / 2650 2155 / 2155
Balance -1969 / -1969 507 / 507
--- NOTE | 2024-01-10 13:15 | W.PN.UPDATE ---
Update Note
Progress Note Update
Echo with preserved ejection fraction and no significant valve disease. She remains in sinus rhythm.
Would use IV Lopressor while n.p.o. Will start oral Cardizem when able to take pills again.
Continue postoperative care. We will follow peripherally.
[2024-01-10] MEDS: NSS 1000 IV ×2 (13:46→20:55)
[2024-01-10] MEDS: NOVOLOG FLEXPEN-LOW RESISTANCE 1 UNITS SC ×2 (13:46→18:42)
--- NOTE | 2024-01-10 14:43 | W.PN.UPDATE ---
Update Note
Progress Note Update
14:[address] López regarding his CT scan. There is no obstruction. No extravasation. She has near diffuse small bowel wall thickening that looks edematous. No pneumatosis. The mesenteric vessels are patent, so no suspicion of ischemia. Not
certain of the etiology, could be infectious. Small volume ascites, minimally increased. Separate small collection in pelvis is considerably smaller. No rim enhancing abscess.
I reached out to infectious disease and they will broaden antibiotics.
I reached out to cardiology and they stated her echo is completely normal and her EKG is unremarkable. They will repeat a troponin today and an EKG.
Dr. López has asked me to reach out to radiology to see if we are able to perform a CTA today.
I spoke to Dr. Cabrera and we agreed to put in a Keith for watching I's and O's. Will also transfer her to the ICU for closer monitoring.
I spoke with the pharmacist Albina regarding the patient's TPN and labwork. We will recheck labs tonight given her low phosphorus.
I discussed the CT read with the family. I explained there is no role for surgery right now. I explained that I am reaching out to the other specialists and am waiting to hear back from radiology regarding the CTA. All questions answered.
15:15:
I updated the primary contact, Theresa, regarding her situation. I spoke to Dr. Richards and we will order CTA A/P.
Dr. Cabrera will reconsult nephrology as well.
--- NOTE | 2024-01-10 15:26 | CON.INTV ---
Consultation
Consultation Request
Date/Time Consultation Requested: 01/09
Date/Time Consultation Performed: 01/09
Reason for Consultation: Critical care
Medical History
-
History of Present Illness:
History obtained from the patient, daughter and at bedside. Also reviewed hospital records. Patient is a pleasant 83-year-old female with history of atrial fibrillation, chronic steroid therapy for back pain/PMR managed by primary
physician whose history dates back to 12/24/2023. At that time she was having few days of nausea, right abdominal discomfort. ER records at that time denied any back pain. Hospital course reviewed, patient was evaluated by colorectal surgery
because of obstipation/constipation. CT imaging revealed large amount of stool. She apparently had a colonoscopy in 2014 which showed left-sided diverticular disease. She subsequently required exploratory laparotomy with total abdominal colectomy
and end ileostomy. Patient was found to have ischemia of the entire colon and distal small bowel without perforation. Patient was noted to have enterococcal bacteremia was followed by infectious disease, maintained on meropenem. Patient did not
tolerate narcotic for pain medication due to confusion. Blood thinners were held, mechanical DVT prophylaxis was continued. Patient was also seen by cardiology, maintained on rate control medications. Follow-up follow-up blood cultures revealed
clearance of bacteremia. Patient had developed emesis, thought to be due to narcotic related or delirium, NG tube was continued with increased bilious output. Antibiotics were narrowed to Unasyn. Patient then was tolerating clears on 01/01/2024,
white count 15.8. 2 weeks of antibiotics was recommended through 01/11/2024 per infectious disease. White count was 17, steroids are being tapered, patient was discharged to [facility] 01/03/2024.
Unfortunate, she returned to the ER 20 to 24 hours with low blood pressure, hypoxia, emesis, hematemesis. CT imaging revealed small bowel obstruction, no free air. White count was elevated at 25. NG tube, n.p.o. Patient was maintained on Unasyn
therapy. Ileostomy output increased, NG tube output improved. IV hydration continued. 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 Patient then developed chest discomfort, hypotension with
maneuvering of the NG tube and PICC line on 01/07/2024. Patient cannot tolerate NG tube and it was subsequently removed. Patient was also noted to have elevated troponin. Cardiology was following. Echocardiogram revealed normal biventricular
function. Patient continued to have intermittent emesis. Diet was advanced to clear liquids on 01/08 which patient states she tolerated and felt well. Patient throughout had been treated with subcutaneous heparin for DVT prophylaxis. Patient then
noted to have increased abdominal pain, hypotension and elevated lactate to 3.8. Patient was kept n.p.o., CT abdomen was obtained, which revealed no obstruction, no extubation. There is edematous small bowel wall thickening, no pneumatosis. No
suspicion for ischemia. We are asked to help from critical care standpoint as patient was being transferred to ICU.
Presently she is denying chest pain, shortness of breath, nausea, lightheadedness, dizziness. She has some mild palpitations. She denied abdominal pain but was noted to have abdominal pain on exam
and daughter was present throughout my visit
.
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 Acute renal insufficiency, history of enterococcal bacteremia in the setting of ischemic bowel,
paroxysmal atrial fibrillation on anticoagulation in the past, hypothyroidism, polymyalgia rheumatica on chronic steroids
Past Medical History
Past Medical History: None (See above)
Past Surgical History: None ( see above)
Social History
Tobacco: Non-smoker
Alcohol: None
Drug: None
Personal:
Living: With Family
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
Family History
Family History: Reviewed & Not Pertinent
Allergies / Home Medications
Allergies
Allergy/AdvReac Type Severity Reaction Status Date / Time
amlodipine Allergy Nausea Verified 01/07/24 21:43
doxycycline Allergy Hives Verified 12/24/23 06:30
hydrocodone [From Vicodin] Allergy Vomiting Verified 01/07/24 21:43
metoprolol [From Lopressor] Allergy Dizzy Verified 01/07/24 21:43
sulfamethoxazole Allergy Rash Verified 12/24/23 06:30
[From Bactrim]
trimethoprim [From Bactrim] Allergy Rash Verified 12/24/23 06:30
Home Medications
�Medication �Instructions �Recorded �Confirmed �Last Taken �Type
diltiazem HCl 120 mg 120 mg PO DAILY #30 caps 03/24/21 01/04/24 01/04/24 08:15 Rx
capsule,extended release 24 hr
gabapentin 300 mg capsule 300 mg PO DAILY #30 caps 03/24/21 01/04/24 01/04/24 08:16 Rx
apixaban 2.5 mg tablet (Eliquis) 2.5 mg PO BID Blood Clot 12/26/23 01/04/24 01/04/24 08:15 History
Prevention/Tx
levothyroxine 75 mcg tablet 75 mcg PO DAILY AT 0700 Thyroid 12/26/23 01/04/24 01/04/24 06:07 History
prednisone 20 mg tablet 10 mg PO Q48H Anti-Inflammatory 12/26/23 01/04/24 12/24/23 History
Ampicillin/Sulbactam 3 G [Unasyn] 240 mls/hr IV Q6H Infection 01/03/24 01/04/24 01/04/24 08:16 Rx
3 gm
multivitamin with folic acid 400 1 tab PO DAILY 01/03/24 01/04/24 Unknown History
mcg tablet (Tab-A-Taz)
nystatin 100,000 unit/mL oral 5 ml PO QID Infection #60 mL 01/03/24 01/04/24 01/04/24 08:15 Rx
suspension
pantoprazole 40 mg tablet,delayed 40 mg PO DAILY #14 tabs 01/03/24 01/04/24 01/04/24 08:14 Rx
release
potassium, sodium phosphates 280 1 packet PO DAILY Supplement #5 ea 01/03/24 01/04/24 01/04/24 08:15 Rx
mg-160 mg-250 mg oral powder
packet (Phosphorous Supplement)
prednisone 10 mg tablet 10 mg PO QPM #14 tabs 01/03/24 01/04/24 01/03/24 20:09 Rx
acetaminophen 500 mg tablet 1,000 mg PO Q8H mild pain 01/04/24 01/04/24 Unknown History
(Tylenol Extra Strength)
ondansetron HCl 4 mg tablet 4 mg PO Q8H PRN NAUSEA/VOMITING 01/04/24 01/04/24 01/04/24 06:11 History
therapeutic multivitamin 1 tab PO DAILY 01/04/24 01/04/24 Unknown History
Review of Systems
-
History Source: Family
All other systems: Negative unless noted
Vitals / Labs / Diagnostic Testing
Vital Signs
Temp Pulse Resp BP Pulse Ox
97.8 F 108 28 94/59 99
01/10/24 11:31 01/10/24 06:00 01/10/24 06:00 01/10/24 06:00 01/10/24 02:29
Lab Data
01/10/24 04:55
Microbiology
01/06/24 10:46 Blood/Venous Blood Culture - Preliminary
No Growth in 4 days- Final report to follow
01/06/24 10:10 Blood/Venous Blood Culture - Preliminary
No Growth in 4 days- Final report to follow
01/10/24 05:05 Feces/Stool C. difficile GDH Antigen & Toxins - Final
C. difficile antigen positive, toxin negative.
Clostridium difficile present, but toxin not detected.
Patient may be a carrier, colonized with nontoxinogenic
strain or the level of toxin in sample is below detection
limits. This information should be used in conjunction with
the patient's clinical history.
01/10/24 04:55 Nasal Swab Influenza Types A & B (TOMMY) - Final
Negative for Influenza A & B, NAAT
Negative results must be combined with clinical observations
and patient history.
Nucleic Acid Amplification test (NAAT)performed on the
[employer] platform.
Diagnostic Testing:
Physical Exam
-
HEENT: Normocephalic, Anicteric and Other (Right upper extremity PICC line)
Cardiovascular: S1/S2, Regular Rhythm, Murmur (n), Rub (n) and Peripheral Edema (1+)
Respiratory: Wheeze (n), Rales (n), Rhonchi (n) and Non-Labored Respirations
GI: Soft, Non Distended, Tender (Diffusely tender) and Other
Neurology: Awake, Alert and No Motor Deficits
Skin: Other (Scattered ecchymoses)
General: Comfortable (On room air)
Assessment
-
83-year-old female with complex medical history including atrial fibrillation, sick sinus syndrome on anticoagulation who presented with mesenteric ischemia underwent total abdominal colectomy with end ileostomy 12/19/2023. She subsequently
discharged but readmitted within 24 hours/02/21 with nausea, emesis and SBO treated nonoperatively with bowel rest. Hospital stay has been complicated by waxing and waning nausea, now with hypotension, abdominal pain. CT imaging without any acute
findings except bowel edema. We are asked to help from critical care standpoint given hypotension 01/10/2024
Hypotension, response to IV fluids
Leukocytosis
Nausea/emesis, abdominal pain
Negative CT abdomen
Mild small bowel edema/thickening
Elevated troponin
Normal echocardiogram, normal biventricular function
TME, mental status changes
Enterococcal bacteremia in the setting of ischemic bowel
On IV antibiotics till 01/11/2024
Atrial fibrillation on Eliquis as outpatient
Hypothyroidism
PMR on chronic steroid therapy
Hyponatremia
Renal insufficiency, improved
Positive C. difficile antigen
Toxin negative
DNR
Plan/recommendations
At this time, patient does not appear to be critically ill.
Seems to respond to IV fluids, presently systolic pressure 110s
Extremities are warm, pulses intact
Patient does have abdominal discomfort, ileostomy intact
1-[address] abdomen imaging without acute findings except bowel wall edema
It appears that she has responded to IV fluids
Salient features include bump in white count, elevated troponin, chronic steroid therapy
Echocardiogram with normal biventricular function
Differential is broad and includes sepsis, secondary infection, thromboembolic disease, adrenal insufficiency
Moving forward
Continue with IV fluids
Check lower extremity Doppler rule out DVT. Patient has been on subcutaneous heparin and DVT prophylaxis. However Eliquis has been held
May require stress dose steroids. Follow for now. Would favor holding on increasing steroids given wound healing issues
Await additional imaging per colorectal surgery
Upon discussing transferred to ICU, patient is adamant about not moving. This was reviewed at length with patient, and daughter at bedside
Patient would prefer to stay in IMU.
She also confirmed she is DNR, does not want mechanical ventilation, does not want CPR. This was confirmed separately and privately with the daughter outside the room.
Reviewed above with primary service, nursing
We will continue to follow
TCCT 40 min
--- NOTE | 2024-01-10 15:38 | W.PN.NEPH.PH ---
Today's Communication / Plan
-
see plan
Assessment/Plan
-
IMP:
Recurrent small bowel obstruction-Status post colectomy for necrotic bowel after period of obstipation constipation/end ileostomy 12/26
Bilateral pleural effusion/peripheral edema
Enterococcal bacteremia
Paroxysmal atrial fibrillation
Leukocytosis
Hyponatremia
Hematemesis
Polymyalgia rheumatica by [id number] and had been undergoing steroid taper to her usual dosage of prednisone every 48
Hypothyroidism
HTN
Dyslipidemia
PLan:
Reconsult for elevating cr
CHELSEA-baseline 0.7 now upto 1.4, suspect from hemodynamic related
previous UA was bland, place barros. oliguric ?
she is net neg balance with high GI out put
cotn NS and TPN per surg,
she is grossly vol overload but probably intravascularly dry
hyponatremia resolved
high WBC, high L acid-CT abd with contrast done earlier and plan CTA per surg noted this pm, reviewed high risk of MANAN with pt and family
BP stable
edema is mostly dependant with hypoalbuminemia
monitor daily wts, labs
abx per ID
d/w nursing
d/w patient and family
-
-
Date of Service: January 10, 2024
CC / HPI / ROS
-
Chief Complaint:
hyponatremia
History of Present Illness:
Na now normal
BP low last night s/p bolus, NS added inaddition to TPN per surg
BP remains soft
wt stable
net neg balance for few days
Review of Systems:
nausea, no vomiting
no abd pain
no sob at rest
Labs
-
Labs:
WBC 12.8 10^3/uL (4.8-10.8) H 01/10/24 04:55
RBC 2.59 10^6/uL (4.20-5.40) L 01/10/24 04:55
Hgb 8.9 g/dL (12.0-16.0) L 01/10/24 04:55
Hct 27.2 % (37.0-47.0) L 01/10/24 04:55
Plt Count 276 10^3/uL (130-400) 01/10/24 04:55
eGFR 37.10 01/10/24 04:55
Phosphorus 2.0 mg/dl (2.5-4.5) L 01/10/24 04:55
Bno-F-Vgkusqjkpoq Pept 2890 pg/ml 01/07/24 17:23
Physical Exam
-
Vital Signs:
Vital Signs
Temp Pulse Resp BP Pulse Ox
97.8 F 108 28 94/59 99
01/10/24 11:31 01/10/24 06:00 01/10/24 06:00 01/10/24 06:00 01/10/24 02:29
Cardiovascular:: Regular rate and rhythm
Lung Excursion:: Abnormal (decreased)
Abdomen:: Nontender and Soft
Extremity Edema:: +3: Bilateral:
Barros Catheter: No
--- NOTE | 2024-01-10 15:59 | W.PN.CARDCBS ---
Today's Communication / Plan
-
IVF
ID expanding abx coverage
additional imaging per colorectal surgery
trop continues to downtrend. pain unlikely cardiac
will follow peripherally
Impression / Plan
-
PCP: Dr. David Valdez
Cardiology: Dr. Ku
Impression:
Admitted with recurrent SBO 01/04/24
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
Chest pain
Elevated Troponin, suspected nonischemic myocardial injury
Paroxysmal atrial fibrillation and typical atrial flutter
s/p PVI, CTI flutter ablation, 08/25/19
occurrence with RVR 12/26/23 then spontaneously converted to SR 12/29/23, recurred with Afib 12/31/23 and then spontaneously converted to SR again 01/01/24
Chronic Eliquis anticoagulation
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
HTN
HLD
GERD
Hypothyroidism
Arthritis
FARIDA 08/19/2019: EF 60 to 65%, mild MR
Echo 12/31/23: EF 65-70%, mild conc LVH, no , mild TR with PAP 30-35 mmHg
Plan:
-asked to re-eval patient as she is complaining of continued epigastric pain and with hypotension. denies CP. reports the pain is across her epigastrum, more so on the left side.
-procal elevated at 25 and with leukocytosis. abx broadened per ID today
-receiving IVF with improvement in BP
-for abd/pelvis CTA and B/L LE US
-echo reviewed with patient and family at bedside, EF preserved
-trop peaked at 0.067 and trended down. repeat trop continues to trend down, 0.018
-EKG 01/09 stable with sinus tachycardia without acute ST abnormalities.
-etiology of pain appears non-cardiac.
-Patient with known paroxysmal Afib/flutter. review of tele ST with occasional PVCs
-IV lopressor has not been given due to relative hypotension. prior to admission was on cardizem cd 120mg daily.
-OP eliquis 2.5mg BID remains on hold. hgb 8.9
-will follow peripherally
-d/w nursing
-d/w patient/family at bedside
PREADMIT DATA:
-Patient came to [facility] from [facility] with vomiting 01/04/24 and was admitted with recurrent SBO, cardiology was consulted today for chest pain and elevated Troponin. Patient came to [facility] with abdominal pain 12/24/23 and after an abdominal u/s and CXR
she was discharged to home. Patient returned to [facility] 12/26/23 with ongoing abdominal pain and constipation and was admitted. Patient had patchy necrosis of the colonic wall on colonoscopy and then had total abdominal colectomy with end ileostomy for
ischemia on 12/27/23. Patient was followed by ID for Enterococcal bacteremia. Cardiology was consulted during that admission for recurrence of known paroxysmal Afib and flutter. Patient spontaneously converted to SR and then had another recurrence
with spontaneous conversion and ultimately was in SR at time of discharge to [facility]. The plan was to manage any recurrences of Afib with rate control due to interruptions in Eliquis. Patient went to [facility] 01/03/24, but started with vomiting early
on 01/04/24 and was sent to [facility] where she was admitted with SBO. Cardiology is consulted for an episode of chest pain during repositioning of NGT yesterday. Initial Troponin was 0.025 then recheck this AM it was 0.067. No recurrence of chest pain.
NGT now removed.
Progress Note - Loan Service Officer
Subjective
Date of Service: January 10, 2024
reports L sided epigastric pain. no CP. no nausea
Objective
Labs:
01/10/24 04:55
Labs
Hgb 8.9 g/dL (12.0-16.0) L 01/10/24 04:55
Hct 27.2 % (37.0-47.0) L 01/10/24 04:55
Plt Count 276 10^3/uL (130-400) 01/10/24 04:55
PT 14.7 Sec (11.4-14.6) H 01/04/24 18:30
INR 1.17 01/04/24 18:30
APTT 25.2 Sec (23.4-35.0) 01/04/24 18:30
Sodium 142 mmol/L (135-145) 01/10/24 04:55
Potassium 4.4 mmol/L (3.5-5.1) D 01/10/24 04:55
BUN 40 mg/dl (7-17) H 01/10/24 04:55
Creatinine 1.4 mg/dL (0.6-1.0) H 01/10/24 04:55
Glucose 170 mg/dl (70-99) H 01/10/24 04:55
Troponins
01/07/24 01/08/24 01/08/24
17:23 09:57 18:12
Troponin I 0.025 0.067 H* 0.044 H*
Vital Signs and I&O:
Vital Signs
Temp Pulse Resp BP Pulse Ox
97.8 F 108 28 94/59 99
01/10/24 11:31 01/10/24 06:00 01/10/24 06:00 01/10/24 06:00 01/10/24 02:29
Vital Signs
Temp Pulse Resp BP Pulse Ox
97.8 F 108 28 94/59 99
01/10/24 11:31 01/10/24 06:00 01/10/24 06:00 01/10/24 06:00 01/10/24 02:29
Intake & Output
01/08/24 01/09/24 01/10/24 01/11/24
07:59 07:59 07:59 07:59
Intake Total 940 / 940 680 / 680 2662 / 2662
Output Total 2650 / 2650 2950 / 2950 1855 / 1855
Balance -1710 / -1710 -2270 / -2270 807 / 807
Physical Exam
Physical Exam
GEN: No distress, awake, alert, oriented x3
HEENT: supple, anicteric, mmm, eomi
LUNGS: CTA anterolaterally, no wheezes
CV: Reg and tachy, S1/S2, no murmur
ABD: soft, BS+, tenderness to placing stethoscope
EXT: No cyanosis, clubbing. 1+ edema of B/L LE
NEURO: Gross non-focal
SKIN: Warm, pink, dry. No rash
[2024-01-10 16:14] LABS: Lactic Acid 1.6 mmol/L (0.7-2.0)
[2024-01-10 16:17] LABS: Troponin I 0.018 ng/ml
[2024-01-10 16:36] LABS: Urine Albumin Negative (Neg - Trace); Urine Bilirubin 1+ (Negative); Urine Character Clear (Clear); Urine Color Yellow; Urine Glucose Negative (Negative); Urine Ketone Trace (Negative); Urine Leukocyte Trace (Negative); Urine Nitrite Negative (Negative); Urine Occult Blood Negative (Negative); Urine Specific Gravity 1.015 (<1.030); Urine Urobilinogen Negative (Neg - 1+)
[2024-01-10 18:12] LABS: Glucose - Point of Care 184 mg/dl (70-99)
[2024-01-10] MEDS: LEVOTHROID 35 MCG IV (18:37)
[2024-01-10] MEDS: STERILE WATER FOR INJECTION 10 ML IV (18:38)
[2024-01-10] MEDS: MERREM 500 MG IV (18:38)
[2024-01-10 20:30] LABS: ALT (SGPT) 21 U/L (0-35); AST (SGOT) 26 U/L (14-36); Alkaline Phosphatase 151 U/L (38-126); Blood Urea Nitrogen 42 mg/dl (7-17); Calcium 8.5 mg/dl (8.4-10.2); Carbon Dioxide 24 mmol/L (22-30); Chloride 114 mmol/L (98-107); Estimated Creatinine Clearance 31 ml/min; Glucose 146 mg/dl (70-99); Magnesium 2.4 mg/dl (1.6-2.3); Phosphorus 2.7 mg/dl (2.5-4.5); Potassium 4.2 mmol/L (3.5-5.1); Sodium 142 mmol/L (135-145); Total Bilirubin 1.1 mg/dl (0.2-1.3); Total Protein 3.9 g/dl (6.3-8.2); eGFR 49.55
[2024-01-10] MEDS: Parenteral Nutrition, Central 850 IV (20:50)
[2024-01-10] MEDS: BenGay-Like TOPICAL (20:58)
[2024-01-10] MEDS: LOPRESSOR 5 MG IV (23:49)
[2024-01-11] VITALS (18 sets, daily range): BP systolic 94–130; BP diastolic 60–89; BMI 21.8
[2024-01-11 00:13] LABS: Glucose - Point of Care 177 mg/dl (70-99)
[2024-01-11] MEDS: NOVOLOG FLEXPEN-LOW RESISTANCE 1 UNITS SC ×2 (01:22→06:33)
[2024-01-11] MEDS: STERILE WATER FOR INJECTION 10 ML IV ×3 (01:30→17:32)
[2024-01-11] MEDS: MERREM 500 MG IV ×3 (01:30→17:32)
--- NOTE | 2024-01-11 03:09 | PTCARENOTE ---
pt in and out of afib. iv lopressor given and converted back to sinus
[2024-01-11 05:42] LABS: Mean Corp Hgb Conc. 32.8 g/dL (33.0-37.0); Mean Corpuscular Hgb 34.9 pg (27.0-31.0); Mean Corpuscular Volume 106.5 fL (81.0-99.0); Mean Platelet Volume 11.5 fL (7.4-10.4); Platelet Count 164 10^3/uL (130-400); Red Blood Cell Count 1.86 10^6/uL (4.20-5.40); Red Cell Dist. Width 22.9 % (11.5-14.5); White Blood Cell Count 11.8 10^3/uL (4.8-10.8)
[2024-01-11 05:55] LABS: Hematocrit 19.8 % (37.0-47.0); Hemoglobin 6.5 g/dL (12.0-16.0)
[2024-01-11 06:11] LABS: ALT (SGPT) 21 U/L (0-35); AST (SGOT) 25 U/L (14-36); Albumin 1.9 g/dl (3.5-5.0); Alkaline Phosphatase 160 U/L (38-126); Blood Urea Nitrogen 41 mg/dl (7-17); Calcium 8.5 mg/dl (8.4-10.2); Carbon Dioxide 23 mmol/L (22-30); Chloride 117 mmol/L (98-107); Estimated Creatinine Clearance 31 ml/min; Glucose 132 mg/dl (70-99); Sodium 144 mmol/L (135-145); Total Bilirubin 0.9 mg/dl (0.2-1.3); Total Protein 3.9 g/dl (6.3-8.2); eGFR 49.55
--- NOTE | 2024-01-11 06:13 | PTCARENOTE ---
critical hgb reported to Dr López and camron [employer]- camron [employer] up to get consent . She also notified pt's daughter. Dr López would like pt to have 1 unit prbc's. pt and daughter unsure if they want to receive transfusion and will let us know
[2024-01-11 06:16] LABS: Potassium 4.2 mmol/L (3.5-5.1)
[2024-01-11 06:19] LABS: Glucose - Point of Care 177 mg/dl (70-99)
--- NOTE | 2024-01-11 06:21 | W.PN.UPDATE ---
Update Note
Progress Note Update
Morning labs: Hgb 6.5/Hct 19.8 down from Hgb 8.9/Hct 27.2, Type and screen ordered and 1 unit a PRBCs ordered. Blood consent obtained from daughter, Theresa, via phone conversation, answered all questions, discussed risk, benefits and alternatives,
blood consent obtained witnessed by floor RN. Consent signed and left to be placed in chart.
[2024-01-11] MEDS: LOPRESSOR 5 MG IV ×4 (06:34→22:58)
[2024-01-11 06:37] LABS: Absolute Neutrophils -Man Diff 10.5 10^3/uL (1.4-6.5); Band Neutrophils 22 % (0-3); Eosinophils 1 % (0-6); Lymphocytes 3 % (20-51); Monocytes 7 % (2-9); Platelets Checked Yes; Segmented Neutrophils 67 % (42-75)
[2024-01-11 06:38] LABS: Anisocytosis 1+; Hypochromasia 1+; Normal RBC Morphology No; Polychromasia 1+; Total Cells Counted 100
[2024-01-11 06:53] LABS: % Basophils 0.7 % (0-2); % Immature Granulocytes 4.6 % (0-0.5); % Lymphocytes 4.5 % (20.5-51.1); % Monocytes 8.5 % (1.7-9.3); % Neutrophils 80.7 % (42.2-75.2); Absolute Basophils 0.1 10^3/uL (0-0.2); Absolute Eosinophils 0.1 10^3/uL (0-0.7); Absolute Immature Granulocytes 0.6 10^3/uL (0-0.05); Absolute Lymphocytes 0.5 10^3/uL (1.2-3.4); Absolute Neutrophils 9.7 10^3/uL (1.4-6.5); Mean Corp Hgb Conc. 32.8 g/dL (33.0-37.0); Mean Corpuscular Hgb 34.9 pg (27.0-31.0); Mean Corpuscular Volume 106.3 fL (81.0-99.0); Nucleated Red Blood Cells % 1.7 %; Platelet Count 163 10^3/uL (130-400); Red Blood Cell Count 1.89 10^6/uL (4.20-5.40); Red Cell Dist. Width 22.9 % (11.5-14.5); White Blood Cell Count 12.1 10^3/uL (4.8-10.8)
[2024-01-11 06:55] LABS: Hematocrit 20.1 % (37.0-47.0); Hemoglobin 6.6 g/dL (12.0-16.0)
[2024-01-11] MEDS: PROTONIX IV 40 MG IV ×2 (08:34→19:25)
[2024-01-11] MEDS: BenGay-Like 1 APPLIC TOPICAL ×3 (08:34→21:01)
[2024-01-11] MEDS: NSS (PRESERVATIVE FREE) 10 ML IV ×2 (08:34→19:25)
[2024-01-11] MEDS: HEPARIN 5000 UNITS SC ×2 (08:34→19:22)
[2024-01-11] MEDS: SOLU-CORTEF 25 MG IV (08:35)
--- NOTE | 2024-01-11 08:44 | CON.ONC ---
Addendum entered and electronically signed by Willem Turner MD 01/11/24 15:50:
Hematology addendum:
Patient seen and evaluated and agree w/ PLAYBACK OPERATOR note and plan as outlined
-anemia - multifactorial - GI blood loss vs. anemia of chronic inflammation vs. possible component of hemolysis - w/ increased reticulocyte count - 10
-check LDH/ haptoglobin/ BARBER
-meropenem can cause hemolytic anemia - appears to have been started at time of acute drop in Hb - MCV also bumped form 98 to 105
-will discuss w/ ID potential role for alternative antibiotic coverage
-transfusion ongoing
-follow CBC
will continue to follow with you
Original Note:
Impression
Impression
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
Recurrent small bowel obstruction
Recent enterococcal bacteremia
Leukocytosis (improved)
Hematemesis x2
Atrial fibrillation
Hypotension, tachycardia
Hypothermia
Acute kidney injury
Hypoalbuminemia
Hx polymyalgia rheumatica (chronic steroids)
Plan
Plan
01/10 WBC 12.1, Hgb 6.6, Hct 20.1, PLT 163
1unit PRBCs ordered for today
Transfuse as needed to maintain Hgb >7, PLT >20
Consider Lasix between units if needed
Additional labs ordered and pending: iron panel, B12, folate, reticulocyte count
Eliquis on hold; resumption once cleared per Colorectal surgery
Supportive care
Incentive spirometry, OOB activity as tolerated, pain management, diet as tolerated (clears today)
Cardiology, Nephrology, CRS following
Lower extremity Doppler US ordered
We will follow.
Patient History
History of Present Illness
Diya Kohli is an 83 year old female who presented to the ER 01/03 from [facility] per Dr. Najera with reports of hypotension, hypoxia, hematemesis x2 episodes. She was recently hospitalized for ischemic colitis requiring total abdominal
colectomy and end ileostomy on 12/27/23. She was discharged 01/02. Her hospital stay was complicated by rapid Afib and Enterococcus bacteremia. She has history of polymyalgia rheumatica and chronic steroid use as well as recent resumption of
anticoagulation. CT abdomen showed recurrent small bowel obstruction and labs showing leukocytosis. NGT was placed and she was been admitted for further treatment.
Past-Medical/Surgical History
Bowel Resection (12/27/23 Exploratory laparotomy with total abdominal colectomy and end ileostomy)
Atrial fibrillation (Eliquis)
Hypertension
Hypercholesterolemia
Sciatica
GERD
Hypothyroidism
Lumbar spinal stenosis
PMR on chronic steroids
Trigeminal neuralgia
Appendectomy
Cardiac ablation
Right hip hemiarthroplasty
Patient Medication
�Medication �Instructions �Recorded �Confirmed �Last Taken �Type
diltiazem HCl 120 mg 120 mg PO DAILY #30 caps 03/24/21 01/04/24 01/04/24 08:15 Rx
capsule,extended release 24 hr
gabapentin 300 mg capsule 300 mg PO DAILY #30 caps 03/24/21 01/04/24 01/04/24 08:16 Rx
apixaban 2.5 mg tablet (Eliquis) 2.5 mg PO BID Blood Clot 12/26/23 01/04/24 01/04/24 08:15 History
Prevention/Tx
levothyroxine 75 mcg tablet 75 mcg PO DAILY AT 0700 Thyroid 12/26/23 01/04/24 01/04/24 06:07 History
prednisone 20 mg tablet 10 mg PO Q48H Anti-Inflammatory 12/26/23 01/04/24 12/24/23 History
Ampicillin/Sulbactam 3 G [Unasyn] 240 mls/hr IV Q6H Infection 01/03/24 01/04/24 01/04/24 08:16 Rx
3 gm
multivitamin with folic acid 400 1 tab PO DAILY 01/03/24 01/04/24 Unknown History
mcg tablet (Tab-A-Taz)
nystatin 100,000 unit/mL oral 5 ml PO QID Infection #60 mL 01/03/24 01/04/24 01/04/24 08:15 Rx
suspension
pantoprazole 40 mg tablet,delayed 40 mg PO DAILY #14 tabs 01/03/24 01/04/24 01/04/24 08:14 Rx
release
potassium, sodium phosphates 280 1 packet PO DAILY Supplement #5 ea 01/03/24 01/04/24 01/04/24 08:15 Rx
mg-160 mg-250 mg oral powder
packet (Phosphorous Supplement)
prednisone 10 mg tablet 10 mg PO QPM #14 tabs 01/03/24 01/04/24 01/03/24 20:09 Rx
acetaminophen 500 mg tablet 1,000 mg PO Q8H mild pain 01/04/24 01/04/24 Unknown History
(Tylenol Extra Strength)
ondansetron HCl 4 mg tablet 4 mg PO Q8H PRN NAUSEA/VOMITING 01/04/24 01/04/24 01/04/24 06:11 History
therapeutic multivitamin 1 tab PO DAILY 01/04/24 01/04/24 Unknown History
Active Medications
Generic Name Dose Route Start Last Admin
Trade Name Freq PRN Reason Stop Dose Admin
Benzocaine/Menthol 1 lozenge 01/07/24 12:46
Benzocaine/Menthol Lozenge PO 02/04/24 12:45
Q4HPRN PRN
throat irritation
Dextrose 12.5 grams 01/08/24 12:00
Dextrose 50% (0.5 Grams/Ml) 50 Ml Syringe IV 02/05/24 11:59
[id number] PRN
hypoglycemia
Protocol
Glucagon 1 mg 01/08/24 12:00
Glucagon 1 Mg Vial IM 02/05/24 11:59
PRN PRN
hypoglycemia - no IV access
Protocol
Heparin Sodium 5,000 units 01/05/24 08:00 01/11/24 08:34
Heparin 5,000 Units/Ml 1 Ml Vial SC 02/02/24 07:59 5,000 units
Q12 DAVID Administration
Hydrocortisone Sodium Succinate 25 mg 01/06/24 08:00 01/11/24 08:35
Hydrocortisone Sodium Succinate 100 Mg/2 Ml Vial IV 02/03/24 07:59 25 mg
DAILY DAVID Administration
Sodium Chloride 1,000 mls @ 80 mls/hr 01/10/24 09:15 01/10/24 20:55
Nss IV 1,000 mls
.[id number] DAVID Administration
Acetaminophen 1,000 mg in 100 mls @ 400 mls/hr 01/10/24 09:29 01/10/24 10:38
Ofirmev IV 01/11/24 09:28 100 mls
Q6HPRN PRN Administration
pain
Protocol
Nutrition (Parenteral) 850 ml in 850 mls @ 35 mls/hr 01/10/24 21:00 01/10/24 20:50
Parenteral Nutrition, Central IV 01/11/24 20:59 850 mls
ONCE@2100 NR Administration
Protocol
Per Protocol
Insulin Aspart 0 units 01/11/24 12:00
Insulin Aspart Moderate Resistance 300 Units/3 Ml Pen.Injctr SC 02/08/24 11:59
Q6 DAVID
Protocol
Levothyroxine Sodium 35 mcg 01/06/24 18:00 01/10/24 18:37
Levothyroxine 100 Mcg (20 Mcg/Ml) Vial IV 02/03/24 17:59 35 mcg
DAILY@1800 DAVID Administration
Protocol
Menthol/Methyl Salicylate 1 applic 01/10/24 08:35 01/11/24 08:34
Bengay-Like Cream TOPICAL 02/07/24 08:34 1 applic
TID DAVID Administration
Meropenem 500 mg 01/10/24 18:00 01/11/24 01:30
Meropenem 500 Mg/10 Ml Vial IV 500 mg
Q8H DAVID Administration
Metoprolol Tartrate 5 mg 01/05/24 12:00 01/11/24 06:34
Metoprolol 5 Mg/5 Ml Vial IV 02/02/24 11:59 5 mg
Q6 DAVID Administration
Ondansetron HCl 4 mg 01/07/24 08:31 01/08/24 04:25
Ondansetron 4 Mg/2 Ml Vial IV 02/04/24 08:30 4 mg
Q6HPRN PRN Administration
NAUSEA/VOMITING
Pantoprazole Sodium 40 mg 01/04/24 20:00 01/11/24 08:34
Pantoprazole Sodium 40 Mg/10 Ml Vial IV 02/01/24 19:59 40 mg
BID DAVID Administration
Phenol 0 spray 01/04/24 19:39 01/05/24 02:55
Chloraseptic (1.4% Phenol) Throat [place] PO 02/01/24 19:38 1 spray
Q2HPRN PRN Administration
sorethroat
Sodium Chloride 10 ml 01/04/24 20:00 01/11/24 08:34
Sodium Chloride 0.9% (Preservative Free) 10 Ml Vial IV 02/01/24 19:59 10 ml
BID DAVID Administration
Sodium Chloride 0 flush 01/05/24 07:00 01/09/24 07:33
Sodium Chloride 0.9% (Flush) Syringe IV 02/02/24 06:59 2 flush
PER PROTOCOL DAVID Administration
Sterile Water 10 ml 01/10/24 18:00 01/11/24 01:30
Sterile Water For Injection 10 Ml Vial IV 02/07/24 17:59 10 ml
Q8H DAVID Administration
Review of Systems
-
History Source: Patient, Family, Coordinated Provider and Records
Constitutional: Reports Fatigue and Weakness
EENT: Reports No Symptoms
Respiratory: Reports No Symptoms
Cardiac: Reports No Symptoms
GI: Reports No Symptoms
Breast: Reports N/A
: Reports No Symptoms
Musculoskeletal: Reports Muscle Weakness
Skin: Reports No Symptoms
Neuro: Reports No Symptoms
Endocrine: Reports No Symptoms
Hematologic/Lymphatic: Reports No Symptoms
Allergy / Immunology: Reports No Symptoms
Psych: Reports No Symptoms
Physical Exam
-
Patient is resting in bed. She denies pain, nausea, vomiting. She is going to try clear liquids today. She reports feeling severely deconditioned as she was completely independent prior. at bedside.
General: No Apparent Distress, Conversant and Appears Chronically Ill
HEENT: Negative Jaundice
Cardiology: S1 and S2
Pulmonary: Clear (diminished/poor effort) and Other (2L nasal cannula oxygen)
GI: Soft and Other (RLQ ostomy with dark liquid stool )
Genito-Urinary: Keith (clear/aure)
Musculoskeletal: Edema, Right Lower Extrem (+1) and Edema, Left Lower Extrem (+1)
Extremities: Pulses Present and Edema
Neurology: Non Focal
Skin: Warm, Dry and Other (pallor)
Hematologic / Lymphatic: Other (scattered ecchymosis)
Psych: Calm
Labs
Lab Results
WBC 12.1 10^3/uL (4.8-10.8) H 01/11/24 06:31
RBC 1.89 10^6/uL (4.20-5.40) L 01/11/24 06:31
Hgb 6.6 g/dL (12.0-16.0) L* 01/11/24 06:31
Hct 20.1 % (37.0-47.0) L* 01/11/24 06:31
MCV 106.3 fL (81.0-99.0) H 01/11/24 06:31
MCH 34.9 pg (27.0-31.0) H 01/11/24 06:31
MCHC 32.8 g/dL (33.0-37.0) L 01/11/24 06:31
RDW 22.9 % (11.5-14.5) H 01/11/24 06:31
Plt Count 163 10^3/uL (130-400) 01/11/24 06:31
MPV 11.0 fL (7.4-10.4) H 01/11/24 06:31
Abs Immat Gran (auto) Cancelled 01/08/24 06:07
Absolute Neuts (auto) Cancelled 01/08/24 06:07
Absolute Lymphs (auto) Cancelled 01/08/24 06:07
Absolute Monos (auto) Cancelled 01/08/24 06:07
Absolute Eos (auto) Cancelled 01/08/24 06:07
Absolute Basos (auto) Cancelled 01/08/24 06:07
Immature Gran % Cancelled 01/08/24 06:07
Neutrophils % Cancelled 01/08/24 06:07
Lymphocytes % Cancelled 01/08/24 06:07
Monocytes % Cancelled 01/08/24 06:07
Eosinophils % Cancelled 01/08/24 06:07
Basophils % Cancelled 01/08/24 06:07
Creatinine 1.1 mg/dL (0.6-1.0) H 01/11/24 05:09
Vital Signs
Vital Signs
Temp Pulse Resp BP Pulse Ox
97.7 F 129 24 100/69 98
01/11/24 03:24 01/11/24 06:00 01/11/24 06:00 01/11/24 06:00 01/11/24 07:21
01/04/24 CT abdomen/pelvis: There is a small bowel obstruction. The point of transition is in the left lower quadrant but difficult to isolate. There is thickening of the decompressed loops of small bowel extending to the ileostomy.There is fluid in
the abdomen and pelvis which may be related to recent surgery, versus ascites. There are bilateral pleural effusions. There is compressive atelectasis bilaterally.There is a moderate-sized hiatal hernia There is third spacing of fluid in the soft
tissues.
01/09/24 CXR: Right upper extremity PICC in position. Hypoaeration of lungs without consolidation. Moderate hiatal hernia.
01/10/24 CT abdomen/pelvis: No evidence of aortic dissection. Patent vessels as described above. Persistent concentric small bowel wall thickening consistent with enteritis. Stable. No pneumatosis. Infectious etiology should be considered.Mild
abdominopelvic ascites stable.Findings suggesting moderate volume overload or third spacing. Stable. Small bilateral pleural effusions. Stable.Mild left lower lobe consolidation. Stable. Bilateral lower lobe atelectasis versus scarring. Stable. Old
fractures. Stable
[2024-01-11] MEDS: OFIRMEV 100 IV (09:14)
--- NOTE | 2024-01-11 09:44 | PN.CDI ---
CDI
- -
CDI:
Physician Documentation Request
Admit Date: 01/04/24 15:54
Dear Doctor Deborah,
Please review the following and provide your response in the progress notes.
Clinical Indicators:
H+P, 01/03
#Hematemesis
#-Unclear if in relation to small bowel obstruction itself or or another upper GI source
#Paroxysmal atrial fibrillation
#-Eliquis will again be held/with question of
#...GI bleed will hold off on pharmacologic DVT prophylaxis
PN, 01/09
#Paroxysmal atrial fibrillation and typical atrial flutter:
#-Anticoagulation when cleared by surgery
Laboratory Tests
01/04/24 01/05/24 01/06/24
09:46 04:27 04:15
Hgb 9.5 L 8.6 L 8.1 L
01/07/24 01/07/24 01/08/24
02:37 17:23 05:10
Hgb 8.8 L 9.9 L 9.1 L
01/08/24 01/09/24 01/10/24
06:07 23:25 04:55
Hgb 9.2 L 8.8 L 8.9 L
01/11/24 01/11/24
05:09 06:31
Hgb 6.5 L* D 6.6 L*
Based on the above and your clinical assessment, please clarify,which of the following is the most likely type of condition/diagnosis evaluated, monitored and/or treated?
Acute blood loss anemia
Acute blood loss anemia with baseline chronic anemia (Specify type)
Anemia of chronic disease - indicate if neoplastic disease, CKD or other...
Other
Use of terms such as suspected, likely, concern for, or probable (associated with a specific diagnosis that is being evaluated, monitored, or treated as if it exists) are acceptable and can be coded in the inpatient setting, when documented at the
time of discharge.
Thank you,
Yessenia Gonzalez RN BSN CCDS
CDI Specialist
please contact via tiger text
Please use your independent medical judgment in providing your response.
--- NOTE | 2024-01-11 10:22 | W.PN.CRS1 ---
Today's Communication / Plan
-
Clears
Continue TPN
Trend hemoglobin
Assessment/Plan
-
83-year-old female with PMH of A-fib, SSS, HTN, HLD, GERD, hypothyroid who presented with mesenteric ischemia and underwent a TAC with end ileostomy on 12/27/[address] López, eventually discharged on 01/02; she came back to the hospital the next day
with N/V and was found to have an SBO on CT; being treated nonoperatively.
1. Hemoglobin being trended due to anemia. Most recent hemoglobin is 6.6. Receiving 1 unit of packed red blood cells.
2. WBC is 12. 1 from 11.8. Trend. ID following. C. difficile, stool cultures and blood cultures pending.
3. Continue IV fluids per nephrology.
4. Pain control Tylenol and/or Toradol, avoid narcotics if possible
5. Continue IV antibiotics per ID.
6. Continue DVT PPx with SQH
7. OOB/IS, appreciate PT
8. Appreciate cardiology
9. 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
10. Will start on a clear liquid diet. The option was discussed about getting speech pathology involved due to risk of aspiration, daughter and patient have decided to hold off on this option for now. Continue TPN.
11. No plans for surgical intervention at this time.
12. Continue to hold Eliquis.
Subjective Data
Subjective Data
Date of Service: January 11, 2024
Patient states she is not in a lot of pain. She denies nausea or vomiting. She is very thirsty.
Objective Data
-
Vital Signs
Temp Pulse Resp BP Pulse Ox
96.4 F L 129 24 100/69 98
01/11/24 07:20 01/11/24 06:00 01/11/24 06:00 01/11/24 06:00 01/11/24 07:21
Intake & Output
04/11/24 04/12/24 04/13/24
06:59 06:59 06:59
Intake Total 2662 / 2662 1150 / 1150
Output Total 2155 / 2155 1500 / 1500
Balance 507 / 507 -350 / -350
Intake:
Oral fluids 930 / 930
IV fluids (Total) 250 / 250 800 / 800
IV piggybacks 1050 / 1050
TPN/PPN 432 / 432 350 / 350
Output:
Liquid stool amount 1515 / 1515 1000 / 1000
Ileostomy 1515 / 1515 1000 / 1000
Urine, Keith 500 / 500
Urine, Voided 640 / 640
Other:
How many times incontinent 1
MODERATE amount urine
Lab Results
01/11/24 06:31
01/11/24 05:09
Physical Exam
-
General: No Acute Distress and AOx3
Abdomen: Soft, Non Distended, Non Tender and Other (Ileostomy warm and pink with function)
Skin: Warm and Dry
Incision: Clear, Dry, Intact
--- NOTE | 2024-01-11 10:35 | W.PN.ID1 ---
Date of Service
Date of Service: January 11, 2024
Today's Communication
Continue meropenem.
Assessment / Plan
# Recent Enterococcal bacteremia due to ischemic bowel
- Bacteremia cleared as of 12/27
# Acute post-op small bowel obstruction
-Remains on TPN.
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
- Conservative management per Colorectal
#Leukocytosis
- Persists
- Suspect due to acute SBO
- broadened abx to meropenem 01/10/24
- Steroid dose decreased as per hospitalist
- Following wbc.
#Anemia
#Other:
Renal insufficiency
Atrial fibrillation
HTN
Dyslipidemia
Sciatica
Lumbar spinal stenosis
PMR
Trigeminal neuralgia
����������������������������������������������������������
Chief Complaint
-: Leukocytosis
Vital Signs / Physical Exam
Vital Signs
Vital Signs
Temp Pulse Resp BP Pulse Ox
96.4 F L 129 24 100/69 98
01/11/24 07:20 01/11/24 06:00 01/11/24 06:00 01/11/24 06:00 01/11/24 07:21
Physical Exam
Constitutional: Chronically Ill, Non-toxic and Cachetic
Eyes: No Conjunctival Hemorrhage and Sclera Anicteric
Cardiovascular: S1/S2; Negative S3/S4
Pulmonary: Non Labored
Gastrointestinal: Soft, Non Distended, Decreased Bowel Sounds and Other (Ostomy in place.)
Genito-Urinary: Keith and Clear Urine
Extremities: Edema; Negative Cyanosis or Erythema
Neurological: Awake and Alert
Psychological: Calm
Objective Data
Lab Data
Lab Results
01/11/24 06:31
01/11/24 05:09
PT 14.7 Sec (11.4-14.6) H 01/04/24 18:30
INR 1.17 01/04/24 18:30
APTT 25.2 Sec (23.4-35.0) 01/04/24 18:30
Estimated Creat Clear 31 ml/min 01/11/24 05:09
Lactic Acid Cancelled 01/11/24 06:00
Total Bilirubin 0.9 mg/dl (0.2-1.3) 01/11/24 05:09
AST 25 U/L (14-36) 01/11/24 05:09
ALT 21 U/L (0-35) 01/11/24 05:09
Alkaline Phosphatase 160 U/L (38-126) H 01/11/24 05:09
C-Reactive Protein 145.00 mg/L (0.0-10.00) H 01/07/24 17:23
Most recent labs reviewed.
Micro Results:
01/06/24 10:10 Blood Culture - Final
Blood/Venous No Growth - Final Report
01/10/24 05:28 Blood Culture - Preliminary
Blood/Venous No Growth in 24 hours- Final report to follow
01/10/24 04:55 Blood Culture - Preliminary
Blood/Venous No Growth in 24 hours- Final report to follow
01/10/24 16:02 Salmonella/Shigella Culture - Pending
Feces/Stool Campylobacter Culture - Pending
Shiga Toxin Test - Pending
01/06/24 10:46 Blood Culture - Preliminary
Blood/Venous No Growth in 4 days- Final report to follow
01/10/24 05:05 C. difficile GDH Antigen & Toxins - Final
Feces/Stool C. difficile antigen positive, toxin negative.
Clostridium difficile present, but toxin not detected.
Patient may be a carrier, colonized with nontoxinogenic
strain or the level of toxin in sample is below detection
limits. This information should be used in conjunction with
the patient's clinical history.
01/10/24 04:55 Influenza Types A & B (TOMMY) - Final
Nasal Swab Negative for Influenza A & B, NAAT
Negative results must be combined with clinical observations
and patient history.
Nucleic Acid Amplification test (NAAT)performed on the
[employer] platform.
Imaging:
01/04/24 CXR: Nasogastric tube in place terminating within a moderate-sized hiatal hernia. Small bilateral pleural effusions with adjacent mild compressive subsegmental atelectasis in the lower lobes of both lungs.
01/04/24 CT a/p: There is a small bowel obstruction. The point of transition is in the left lower quadrant but difficult to isolate. There is thickening of the decompressed loops of small bowel extending to the ileostomy. There is fluid in the
abdomen and pelvis which may be related to recent surgery, versus ascites.
01/04/24 LE venous doppler: no DVT
[2024-01-11 11:40] LABS: Iron 32 ug/dl (37-170)
[2024-01-11 11:49] LABS: Percent Saturation 20 % (20-50); Total Iron Binding Capacity 153 ug/dl (265-497)
[2024-01-11 12:34] LABS: Glucose - Point of Care 177 mg/dl (70-99)
[2024-01-11 12:42] LABS: Folate 7.4 ng/ml (2.76-20); Vitamin B12 979 pg/ml (239-931)
[2024-01-11] MEDS: NOVOLOG FLEXPEN-MODERATE RESISTANCE 1 UNITS SC ×3 (13:04→22:59)
--- NOTE | 2024-01-11 15:13 | W.PN.HOSP.TC ---
Addendum entered and electronically signed by Wilbert Cabrera MD 01/11/24 16:34:
Acute blood loss anemia
Original Note:
Today's Communication/Plan
-
TPN. Antibiotics. Blood transfusion.
Assessment / Plan
Assessment / Plan
Physical exam:
General: Acutely ill
HEENT: Normocephalic, Atraumatic and Moist Mucous Membranes
Respiratory: Clear to Auscultation; Negative Wheezes, Rales or Rhonchi
Cardiac: Regular Rhythm and S1/S2
GI: Soft, Tender and Nondistended. Ileostomy in place.
Musculoskeletal: No Clubbing, No Cyanosis and No Edema
Neuro: Awake, Alert and Oriented
Psych: Calm
A/P:
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
-Full liquid diet today per colorectal surgery
-Reviewed repeated CT scan of the abdomen with contrast and CTA abdomen pelvis from 01/09 with no ischemic findings but nonspecific abnormalities.
-WBC 12.1 today
-Pain control
-On TPN
-On PPI
-Yesterday on 01/09 access coordinator consulted and recommended transfer to ICU but patient and family declined.
-Discussed with family at bedside
Hypertension:
-Likely multifactorial-->anemia, infection, volume depletion, possible relative adrenal insufficiency
-Continue fluids, blood transfusion, may consider stress dose steroids but continue current steroids to avoid interference with wound healing.
Anemia:
-Blood transfusion ordered today
-Hemoglobin 6.6
-Hematology eval
Acute kidney injury:
-Started on IV fluids normal saline at 80-85 cc/h after bolus yesterday on 01/09 and nephrology reconsulted in the setting of hypotension and dye contrast used x 2 on 01/09.
-Fortunately, creatinine is 1.1 today
-Avoid nephrotoxic
-Repeat renal function in a.m.
Neck pain, likely musculoskeletal:
-Local Bengay
-IV Tylenol as needed
-No need for further workup.
Recent enterococcal bacteremia in the setting of ischemic bowel:
-Continue IV meropenem
-ID on board and change antibiotics to broaden spectrum yesterday on 01/09 (from Unasyn to Meropenem)
Elevated troponin:
- Elevated troponin due to non-ischemic myocardial injury
-Echo no WMA and normal LV and RV fx
Paroxysmal atrial fibrillation and typical atrial flutter:
-On normal sinus rhythm
-Cardiology recommends to change IV Lopressor to p.o. Cardizem when able to tolerates oral
-Echocardiogram unremarkable on 01/08, EF 65 to 70% and normal right ventricular size and function, normal regional wall motion, just trace mitral regurgitation aortic regurgitation. No pericardial effusion.
-Anticoagulation when cleared by surgery
Volume overload in the setting of hypoalbuminemia:
-Third spacing intravascular volume depletion present.
-Lasix as needed. Okay to use ivf hydration for now.
Hypothyroidism:
-On IV Synthroid
-Change to oral when tolerating oral
Polymyalgia rheumatica:
-Chronically on steroids
-Recommend to change IV steroids to oral steroids if tolerating oral
Hyponatremia:
-Resolved
Hypokalemia:
-Replete and trend
DVT prophylaxis:
Heparin SQ
CODE STATUS:
Business Risk Analyst updated CODE STATUS on 01/09 with patient and family and she is now DNR.
Total time spent on today's encounter was 52 minutes which included time spent in counseling the patient/family regarding diagnosis and treatment plan as listed above, goals of care, and symptom management. Case was discussed with nursing staff,
specialists, and care coordinators/case management. All labs and imaging personally reviewed by me. Remainder the time spent in detailed review of previous records, lab data, imaging, and other medical provider documentation.
Anticipated Discharge: > 48 hours
Subjective/Interval History
-
Date of Service: January 11, 2024
pte feels better overall, less nausea, no vomiting. Afebrile
Objective Data
-
Labs:
Laboratory Results
01/11/24 01/11/24
05:09 06:31
WBC 11.8 H 12.1 H
Hgb 6.5 L* D 6.6 L*
Hct 19.8 L* 20.1 L*
Plt Count 164 D 163
Sodium 144
Potassium 4.2
Chloride 117 H
Carbon Dioxide 23
BUN 41 H
Creatinine 1.1 H
Glucose 132 H
Calcium 8.5
Total Bilirubin 0.9
AST 25
ALT 21
Alkaline Phosphatase 160 H
Vital Signs:
Vital Signs
Temp Pulse Resp BP Pulse Ox
97.6 F 84 20 114/74 98
01/11/24 14:52 01/11/24 14:52 01/11/24 14:52 01/11/24 14:52 01/11/24 12:00
I&O
01/10/24 01/11/24 01/12/24
06:59 06:59 06:59
Intake Total 2662 / 2662 1150 / 1150 250 / 250
Output Total 2155 / 2155 1500 / 1500
Balance 507 / 507 -350 / -350 250 / 250
--- NOTE | 2024-01-11 16:03 | W.PN.NEPH.PH ---
Today's Communication / Plan
-
- sign off
Assessment/Plan
-
IMP:
Recurrent small bowel obstruction-Status post colectomy for necrotic bowel after period of obstipation constipation/end ileostomy 12/26
Bilateral pleural effusion/peripheral edema
Enterococcal bacteremia
Paroxysmal atrial fibrillation
Leukocytosis
Hyponatremia
Hematemesis
Polymyalgia rheumatica by whidvav-Yaeuwwz-yegxirnth and had been undergoing steroid taper to her usual dosage of prednisone every 48
Hypothyroidism
HTN
Dyslipidemia
Plan:
Reconsult for elevating cr
CHELSEA-baseline 0.7, peak 1.4, now down to 1.1
previous UA was bland, barros in place, making urine
she is net neg balance with high GI out put
continue NS and TPN per gen surg
she is grossly vol overload but probably intravascularly dry
hyponatremia resolved
high WBC, high L acid-CT abd with contrast done earlier and plan CTA per surg noted this pm, reviewed high risk of MANAN with pt and family
BP stable
edema is mostly dependant with hypoalbuminemia
monitor daily wts, labs
abx per ID
d/w patient and family
nephrology will sign off at this time
-
-
Date of Service: January 11, 2024
CC / HPI / ROS
-
Chief Complaint:
hyponatremia
History of Present Illness:
Na now normal
BP low last night s/p bolus, NS added in addition to TPN per surg
BP remains soft
wt stable
net neg balance for few days
Review of Systems:
nausea, no vomiting
no abd pain
no sob at rest
Labs
-
Labs:
WBC 12.1 10^3/uL (4.8-10.8) H 01/11/24 06:31
RBC 1.89 10^6/uL (4.20-5.40) L 01/11/24 06:31
Hgb 6.6 g/dL (12.0-16.0) L* 01/11/24 06:31
Hct 20.1 % (37.0-47.0) L* 01/11/24 06:31
Plt Count 163 10^3/uL (130-400) 01/11/24 06:31
Sodium 144 mmol/L (135-145) 01/11/24 05:09
Potassium 4.2 mmol/L (3.5-5.1) 01/11/24 05:09
Chloride 117 mmol/L (98-107) H 01/11/24 05:09
Carbon Dioxide 23 mmol/L (22-30) 01/11/24 05:09
BUN 41 mg/dl (7-17) H 01/11/24 05:09
Creatinine 1.1 mg/dL (0.6-1.0) H 01/11/24 05:09
eGFR 49.55 01/11/24 05:09
Glucose 132 mg/dl (70-99) H 01/11/24 05:09
Calcium 8.5 mg/dl (8.4-10.2) 01/11/24 05:09
Phosphorus 2.7 mg/dl (2.5-4.5) 01/10/24 19:50
Qsa-D-Hwsapdhncod Pept 2890 pg/ml 01/07/24 17:23
Albumin 1.9 g/dl (3.5-5.0) L 01/11/24 05:09
Physical Exam
-
Vital Signs:
Vital Signs
Temp Pulse Resp BP Pulse Ox
97.6 F 84 20 114/74 98
01/11/24 14:52 01/11/24 14:52 01/11/24 14:52 01/11/24 14:52 01/11/24 12:00
Cardiovascular:: Regular rate and rhythm
Respiratory:: Bilateral: Coarse
Lung Excursion:: Normal
Abdomen:: Nontender and Soft
Bowel Sounds:: Normal
Extremity Edema:: +3: Bilateral:
Barros Catheter: Yes
--- NOTE | 2024-01-11 16:50 | CM ---
Patient from [facility] with recent colectomy with ileostomy with Dx Recurrent SBO, anemia. Transfusion ordered. O2 2L. Full liquids. TPN. PICC. IV Abx. PT/OT on hold today.
CM continuing to follow.
Plan follow up with Harsha AVILES about patient's return, when closer to d/c.
--- NOTE | 2024-01-11 16:50 | W.PN.INTV ---
Today's Communication / Plan
Recommendations
Transfuse per primary service
Diet advanced, tolerating
Abdominal pain Improved
Hemodynamics improved
We will sign off. Please call with questions
Assessment
-
83-year-old female with complex medical history including atrial fibrillation, sick sinus syndrome on anticoagulation who presented with mesenteric ischemia underwent total abdominal colectomy with end ileostomy 12/19/2023. She subsequently
discharged but readmitted within 24 hours/02/21 with nausea, emesis and SBO treated nonoperatively with bowel rest. Hospital stay has been complicated by waxing and waning nausea, now with hypotension, abdominal pain. CT imaging without any acute
findings except bowel edema. We are asked to help from critical care standpoint given hypotension 01/10/2024
Hypotension, response to IV fluids
Anemia, requiring transfusion
Leukocytosis
Nausea/emesis, abdominal pain
Negative CT abdomen
Mild small bowel edema/thickening
Elevated troponin
Normal echocardiogram, normal biventricular function
TME, mental status changes
Enterococcal bacteremia in the setting of ischemic bowel
On IV antibiotics till 01/11/2024
Atrial fibrillation on Eliquis as outpatient
Hypothyroidism
PMR on chronic steroid therapy
Hyponatremia
Renal insufficiency, improved
Positive C. difficile antigen
Toxin negative
DNR
Plan/recommendations
At this time, patient appears to be objectively and subjectively improved
Appears stronger, more conversant
Abdomen less distended, less tender
Tolerated clears today
Status post transfusion
Recent CT abdomen imaging without acute findings except bowel wall edema
Dopplers negative for DVT
Moving forward
Continue with management per primary service, colorectal surgery/surgery
Blood pressure is improved
P.o. intake improved
Incentive spirometry, out of bed to chair as able
Family at bedside
We will sign off. Please call with questions
Subjective Dataa
Subjective Data
Date of Service:
Date of Service: January 11, 2024
Subjective:
Patient is feeling improved today. Denies shortness of breath, chest pain, nausea, less abdominal pain. Able to tolerate clears and ice cream without difficulty. Family at bedside. Patient appears to be in better spirits
Objective Data
Data Reviewed
Vital Signs / I&O / Oxygen:
Vital Signs
Temp Pulse Resp BP Pulse Ox
97.6 F 84 20 114/74 98
01/11/24 14:52 01/11/24 14:52 01/11/24 14:52 01/11/24 14:52 01/11/24 12:00
Intake and Output
01/10/24 01/11/24 01/12/24
06:59 06:59 06:59
Intake Total 2662 / 2662 1150 / 1150 250 / 250
Output Total 2155 / 2155 1500 / 1500 400 / 400
Balance 507 / 507 -350 / -350 -150 / -150
SaO2 98
Nasal Cannula flow liters per 2
minute
Physical Exam
General: Comfortable and Other (Cachectic)
HEENT: Normocephalic
Cardiovascular: S1-S2, Regular Rhythm, Murmur (n), Rub (n), Peripheral Edema (tr), Calf Tenderness and Other (Sequentials)
Respiratory: Wheeze (n), Crackles (n), Rhonchi (n) and Non-Labored Respirations
GI: Soft, Non Distended, Non Tender and Other (Ostomy intact, incision intact)
Neurology: Awake, Alert and No Motor Deficits (Able to turn over without assistance)
Skin: Cyanosis (n), Jaundice (n) and Rash (n)
Labs/Micro/Reports
Lab Data
01/11/24 06:31
01/11/24 05:09
Microbiology
01/10/24 16:02 Feces/Stool Salmonella/Shigella Culture - Preliminary
Culture in Progress
01/10/24 16:02 Feces/Stool Campylobacter Culture - Preliminary
Culture in Progress
01/06/24 10:46 Blood/Venous Blood Culture - Final
No Growth - Final Report
01/06/24 10:10 Blood/Venous Blood Culture - Final
No Growth - Final Report
01/10/24 05:28 Blood/Venous Blood Culture - Preliminary
No Growth in 24 hours- Final report to follow
01/10/24 04:55 Blood/Venous Blood Culture - Preliminary
No Growth in 24 hours- Final report to follow
01/10/24 05:05 Feces/Stool C. difficile [facility] Antigen & Toxins - Final
C. difficile antigen positive, toxin negative.
Clostridium difficile present, but toxin not detected.
Patient may be a carrier, colonized with nontoxinogenic
strain or the level of toxin in sample is below detection
limits. This information should be used in conjunction with
the patient's clinical history.
01/10/24 04:55 Nasal Swab Influenza Types A & B (TOMMY) - Final
Negative for Influenza A & B, NAAT
Negative results must be combined with clinical observations
and patient history.
Nucleic Acid Amplification test (NAAT)performed on the
[employer] platform.
[2024-01-11 17:07] LABS: Glucose - Point of Care 155 mg/dl (70-99)
[2024-01-11] MEDS: LEVOTHROID 35 MCG IV (17:29)
[2024-01-11 18:46] LABS: LDH 310 U/L (120-246)
[2024-01-11] MEDS: NSS 1000 IV (19:21)
[2024-01-11] MEDS: Parenteral Nutrition, Central 1000 IV (20:56)
[2024-01-11 23:05] LABS: Glucose - Point of Care 170 mg/dl (70-99)
[2024-01-12] VITALS (12 sets, daily range): BP systolic 126–164; BP diastolic 67–96; PULSE 84; BMI 22.3
[2024-01-12] MEDS: STERILE WATER FOR INJECTION 10 ML IV ×3 (01:44→17:59)
[2024-01-12] MEDS: MERREM 500 MG IV ×3 (01:45→18:00)
[2024-01-12 03:59] LABS: Hemoglobin 7.4 g/dL (12.0-16.0); Mean Corp Hgb Conc. 32.2 g/dL (33.0-37.0); Mean Corpuscular Hgb 34.6 pg (27.0-31.0); Mean Corpuscular Volume 107.5 fL (81.0-99.0); Mean Platelet Volume 11.4 fL (7.4-10.4); Nucleated Red Blood Cells % 1.4 %; Platelet Count 137 10^3/uL (130-400); Red Blood Cell Count 2.14 10^6/uL (4.20-5.40); Red Cell Dist. Width 22.9 % (11.5-14.5); White Blood Cell Count 10.1 10^3/uL (4.8-10.8)
--- NOTE | 2024-01-12 04:23 | PTCARENOTE ---
Pt received at beginning of shift resting in bed. AAOx3 but is forgetful and appears somewhat confused at times. Flat affect. Repeats questions already answered. Denies pain or discomfort but did agree to Bengay to right neck area when due. VSS.
Afebrile. SR/PVC on CM rate 70's. Ileostomy draining green liquid emptied for 175ml so far this shift. Stoma red/budded. Pt denies nausea. TPN and NSS infusing as ordered to right PICC line. Keith draining yellow urine. Pt not drinking fluid but is
requesting ice throughout shift. Abdomen slightly tender. Wounds as documented. No change from previous assessment. Maintained on Q2hr turns. Call shah remains within reach. Will continue to monitor.
[2024-01-12 04:30] LABS: Magnesium 2.5 mg/dl (1.6-2.3); Phosphorus 4.9 mg/dl (2.5-4.5)
[2024-01-12 05:22] LABS: Absolute Neutrophils -Man Diff 8.1 10^3/uL (1.4-6.5); Band Neutrophils 19 % (0-3); Lymphocytes 10 % (20-51); Metamyelocytes 4 % (-); Monocytes 3 % (2-9); Myelocytes 2 % (-); Normal RBC Morphology Yes; Platelets Checked Yes; Segmented Neutrophils 62 % (42-75)
[2024-01-12 05:23] LABS: Total Cells Counted 100
[2024-01-12] MEDS: NOVOLOG FLEXPEN-MODERATE RESISTANCE 3 UNITS SC (06:22)
[2024-01-12] MEDS: LOPRESSOR 5 MG IV ×4 (06:23→23:44)
[2024-01-12 06:27] LABS: Glucose - Point of Care 207 mg/dl (70-99)
[2024-01-12 07:30] LABS: Glucose - Point of Care 160 mg/dl (70-99)
[2024-01-12] MEDS: SOLU-CORTEF 25 MG IV (07:31)
[2024-01-12] MEDS: NSS (PRESERVATIVE FREE) 10 ML IV ×2 (07:31→21:05)
[2024-01-12] MEDS: PROTONIX IV 40 MG IV ×2 (07:31→21:05)
[2024-01-12] MEDS: BenGay-Like 1 APPLIC TOPICAL ×3 (07:37→21:05)
[2024-01-12] MEDS: HEPARIN 5000 UNITS SC ×2 (07:37→21:04)
--- NOTE | 2024-01-12 08:47 | W.PN.HOSP.TC ---
Today's Communication/Plan
-
IV antibiotics. CT head.
Assessment / Plan
Assessment / Plan
Physical exam:
General: Acutely ill
HEENT: Normocephalic, Atraumatic and Moist Mucous Membranes
Respiratory: Clear to Auscultation; Negative Wheezes, Rales or Rhonchi
Cardiac: Regular Rhythm and S1/S2
GI: Soft, Tender and Nondistended. Ileostomy in place.
Musculoskeletal: No Clubbing, No Cyanosis and No Edema
Neuro: Awake, Alert and Oriented
Psych: Calm
A/P:
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
-Changing to Low Residue per colorectal surgery/general surgery today.
-Reviewed repeated CT scan of the abdomen with contrast and CTA abdomen pelvis from 01/09 with no ischemic findings but nonspecific abnormalities.
-WBC 10.1 today
-Pain control
-On TPN
-On PPI
-On 01/09 system integration engineer consulted and recommended transfer to ICU but patient and family declined.
-Discussed with family at bedside twice on 01/11.
Swallowing issues likely Delirium but r/o Stroke:
-Informed by nurse that patient/family requested Speech Therapy today therefore order placed.
-SP reached out to me due to concerns on her evaluation.
-Neurology consulted and discussed with neuro
-CT head today
-NIH score
-MRI brain discussed by neuro with patient and family and not interested.
-Maybe repeat ct head in am by neuro recommendations but family not keen on that-discussed with RN to discuss with family prior to any testing.
-ASA recommended to start if not Eliquis over the next 1-2 days if cleared by surgery.
Oral candidiasis:
-Start Nystatin
-EKG in am for QTc
Hypernatremia
-Mild
-If worsen might need hypotonic fluids but reeval first.
Hypotension:
-Resolved
-Likely multifactorial-->anemia, infection, volume depletion, possible relative adrenal insufficiency
-Continue fluids, blood transfusion, may consider stress dose steroids but continue current steroids to avoid interference with wound healing.
Anemia:
-Blood transfusion on 01/10
-Hemoglobin 6.6-->7.4 today
-Hematology eval
Acute kidney injury:
-Improved
-Cr 1.0 today
-Off IVF
Neck pain, likely musculoskeletal:
-Improved
-Local Bengay
-Tylenol as needed
-No need for further workup.
Recent enterococcal bacteremia in the setting of ischemic bowel:
-Continue IV meropenem
-ID on board and change antibiotics to broaden spectrum yesterday on 01/09 (from Unasyn to Meropenem)
Elevated troponin:
- Elevated troponin due to non-ischemic myocardial injury
-Echo no WMA and normal LV and RV fx
Paroxysmal atrial fibrillation and typical atrial flutter:
-On normal sinus rhythm
-Cardiology recommends to change IV Lopressor to p.o. Cardizem when able to tolerates oral
-Echocardiogram unremarkable on 01/08, EF 65 to 70% and normal right ventricular size and function, normal regional wall motion, just trace mitral regurgitation aortic regurgitation. No pericardial effusion.
-Anticoagulation when cleared by surgery
Volume overload in the setting of hypoalbuminemia:
-Third spacing intravascular volume depletion present.
-Lasix as needed. Okay to use ivf hydration for now.
Hypothyroidism:
-On IV Synthroid
-Change to oral when tolerating oral
Polymyalgia rheumatica:
-Chronically on steroids
-Recommend to change IV steroids to oral steroids if tolerating oral
Hyponatremia:
-Resolved
Hypokalemia:
-Replete and trend
DVT prophylaxis:
Heparin SQ
CODE STATUS:
Television Parts Tester updated CODE STATUS on 01/09 with patient and family and she is now DNR.
Total time spent on today's encounter was 52 minutes which included time spent in counseling the patient/family regarding diagnosis and treatment plan as listed above, goals of care, and symptom management. Case was discussed with nursing staff,
specialists, and care coordinators/case management. All labs and imaging personally reviewed by me. Remainder the time spent in detailed review of previous records, lab data, imaging, and other medical provider documentation.
Anticipated Discharge: > 48 hours
Subjective/Interval History
-
Date of Service: January 12, 2024
Patient had some problems with swallowing today. After SP eval there was some concers of stroke-like sx. No abd pain.
Objective Data
-
Labs:
Laboratory Results
01/12/24
03:34
WBC 10.1
Hgb 7.4 L
Hct 23.0 L
Plt Count 137
Sodium Pending
Potassium Pending
Chloride Pending
Carbon Dioxide Pending
BUN Pending
Creatinine Pending
Glucose Pending
Calcium Pending
Vital Signs:
Vital Signs
Temp Pulse Resp BP Pulse Ox
97.7 F 80 18 136/67 96
01/12/24 07:20 01/12/24 06:23 01/12/24 04:00 01/12/24 06:23 01/12/24 07:49
I&O
01/11/24 01/12/24 01/13/24
06:59 06:59 06:59
Intake Total 1150 / 1150 2550 / 2550
Output Total 1500 / 1500 1125 / 1125
Balance -350 / -350 1425 / 1425
[2024-01-12 08:57] LABS: Blood Urea Nitrogen 40 mg/dl (7-17); Calcium 8.5 mg/dl (8.4-10.2); Carbon Dioxide 21 mmol/L (22-30); Chloride 116 mmol/L (98-107); Estimated Creatinine Clearance 35 ml/min; Potassium 5.9 mmol/L (3.5-5.1); Sodium 144 mmol/L (135-145); eGFR 55.55
[2024-01-12 09:21] LABS: Glucose 667 mg/dl (70-99)
--- NOTE | 2024-01-12 10:44 | W.PN.ID1 ---
Date of Service
Date of Service: January 12, 2024
Today's Communication
continue meropenem
Assessment / Plan
# Enteritis
# Leukocytosis - resolved
# Drug allergies: doxycycline hives, bactrim rash
- C diff ag positive toxin neg
- unable to take oral meds at this time
- broadened abx to meropenem 01/10/24
- Steroid dose decreased as per hospitalist
- Following wbc.
# Recent Enterococcal bacteremia due to ischemic bowel
- Bacteremia cleared as of 12/27
- 01/09 blood cultures no growth to date
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
- Conservative management per Colorectal
- Remains on TPN.
#Anemia
#Other:
Renal insufficiency
Atrial fibrillation
HTN
Dyslipidemia
Sciatica
Lumbar spinal stenosis
PMR
Trigeminal neuralgia
����������������������������������������������������������
Chief Complaint
-: Leukocytosis
Subjective / Review of Systems
mildly hypothermic yesterday
bp stable
leukocytosis resolved
hgb improved
L shift persists
glucose this am 667
k 5.9
co2 21
stool culture was sent -in progress
referred family to surgery team re: questions about jessica
Vital Signs / Physical Exam
Vital Signs
Vital Signs
Temp Pulse Resp BP Pulse Ox
97.7 F 80 18 136/67 96
01/12/24 07:20 01/12/24 06:23 01/12/24 04:00 01/12/24 06:23 01/12/24 07:49
Physical Exam
Constitutional: No Acute Distress
Cardiovascular: Regular Rate and S1/S2; Negative Murmur or Rub
Pulmonary: Clear and Symmetric; Negative Wheezes or Rales
Gastrointestinal: Soft, Non Tender, Non Distended and Normal Bowel Sounds
Skin: Warm and Dry; Negative Rash or Jaundice
Wound: Other (jessica in place, no dehiscence, no erythema, no drainage, ostomy with scan output)
Objective Data
Lab Data
Lab Results
01/12/24 03:34
PT 14.7 Sec (11.4-14.6) H 01/04/24 18:30
INR 1.17 01/04/24 18:30
APTT 25.2 Sec (23.4-35.0) 01/04/24 18:30
Estimated Creat Clear 35 ml/min 01/12/24 03:34
Lactic Acid Cancelled 01/11/24 06:00
Total Bilirubin 0.9 mg/dl (0.2-1.3) 01/11/24 05:09
AST 25 U/L (14-36) 01/11/24 05:09
ALT 21 U/L (0-35) 01/11/24 05:09
Alkaline Phosphatase 160 U/L (38-126) H 01/11/24 05:09
C-Reactive Protein 145.00 mg/L (0.0-10.00) H 01/07/24 17:23
Most recent labs reviewed.
Micro Results:
01/10/24 05:28 Blood Culture - Preliminary
Blood/Venous No Growth in 48 hours- Final report to follow
01/10/24 04:55 Blood Culture - Preliminary
Blood/Venous No Growth in 48 hours- Final report to follow
01/10/24 16:02 Salmonella/Shigella Culture - Preliminary
Feces/Stool Culture in Progress
Campylobacter Culture - Preliminary
Culture in Progress
Shiga Toxin Test - Pending
01/06/24 10:46 Blood Culture - Final
Blood/Venous No Growth - Final Report
01/06/24 10:10 Blood Culture - Final
Blood/Venous No Growth - Final Report
01/10/24 05:05 C. difficile [facility] Antigen & Toxins - Final
Feces/Stool C. difficile antigen positive, toxin negative.
Clostridium difficile present, but toxin not detected.
Patient may be a carrier, colonized with nontoxinogenic
strain or the level of toxin in sample is below detection
limits. This information should be used in conjunction with
the patient's clinical history.
01/10/24 04:55 Influenza Types A & B (TOMMY) - Final
Nasal Swab Negative for Influenza A & B, NAAT
Negative results must be combined with clinical observations
and patient history.
Nucleic Acid Amplification test (NAAT)performed on the
[employer] platform.
Imaging:
01/04/24 CXR: Nasogastric tube in place terminating within a moderate-sized hiatal hernia. Small bilateral pleural effusions with adjacent mild compressive subsegmental atelectasis in the lower lobes of both lungs.
01/04/24 CT a/p: There is a small bowel obstruction. The point of transition is in the left lower quadrant but difficult to isolate. There is thickening of the decompressed loops of small bowel extending to the ileostomy. There is fluid in the
abdomen and pelvis which may be related to recent surgery, versus ascites.
01/04/24 LE venous doppler: no DVT
[2024-01-12 11:05] LABS: Blood Urea Nitrogen 38 mg/dl (7-17); Calcium 8.3 mg/dl (8.4-10.2); Carbon Dioxide 25 mmol/L (22-30); Chloride 121 mmol/L (98-107); Estimated Creatinine Clearance 35 ml/min; Glucose 104 mg/dl (70-99); Magnesium 2.3 mg/dl (1.6-2.3); Phosphorus 3.2 mg/dl (2.5-4.5); Potassium 3.9 mmol/L (3.5-5.1); Sodium 147 mmol/L (135-145); eGFR 55.55
[2024-01-12] MEDS: NOVOLOG FLEXPEN-MODERATE RESISTANCE SC (12:00)
[2024-01-12 12:02] LABS: Glucose - Point of Care 134 mg/dl (70-99)
--- NOTE | 2024-01-12 13:25 | W.PN.GS2 ---
Today's Communication / Plan
-
Continue IV fluids per nephrology.
Pain control Tylenol and/or Toradol, avoid narcotics if possible
Continue IV antibiotics per ID.
Continue DVT PPx with SQH
OOB/IS, appreciate PT
Advance to a regular diet. Continue TPN for now, may stop tomorrow if tolerating good p.o. intake.
No plans for surgical intervention at this time.
Continue to hold Eliquis given concern for ongoing bleeding.
Assessment / Plan
-
83-year-old female with PMH of A-fib, SSS, HTN, HLD, GERD, hypothyroid who presented with mesenteric ischemia and underwent a TAC with end ileostomy on 12/27/[address] López, eventually discharged on 01/02; she came back to the hospital the next day
with N/V and was found to have an SBO on CT; being treated nonoperatively.
1. Hemoglobin stable at 7.4.
2. WBC is normal. Trend. ID following. C. difficile, stool cultures and blood cultures all negative
3. Continue IV fluids per nephrology.
4. Pain control Tylenol and/or Toradol, avoid narcotics if possible
5. Continue IV antibiotics per ID.
6. Continue DVT PPx with SQH
7. OOB/IS, appreciate PT
8. Appreciate cardiology
9. Appreciate hospitalist and supervisor word processing.
10. Advance to a regular diet. Continue TPN for now, may stop tomorrow if tolerating good p.o. intake.
11. No plans for surgical intervention at this time.
12. Continue to hold Eliquis given concern for ongoing bleeding.
Time Spent
Total Time Spent with Patient (in minutes): 25
Subjective Data
-
Date of Service: January 12, 2024
Interval Events:
No acute events overnight. Slept well. Pain Controlled. Denies Nausea/Vomiting, +bowel function. Tolerating diet.
Objective Data
-
Intake and Output
01/11/24 01/12/24 01/13/24
06:59 06:59 06:59
Intake Total 1150 / 1150 2550 / 2550
Output Total 1500 / 1500 1125 / 1125
Balance -350 / -350 1425 / 1425
Intake:
Oral fluids 360 / 360
IV fluids (Total) 800 / 800 1460 / 1460
TPN/PPN 350 / 350 480 / 480
Blood Product Amount Infused ( 250 / 250
mL)
Packed Rbc Leukoreduced Unit 250 / 250
[id number]
Output:
Liquid stool amount 1000 / 1000 575 / 575
Ileostomy 1000 / 1000 575 / 575
Urine, Keith 500 / 500 550 / 550
Other:
How many times incontinent 1
MODERATE amount urine
Number of unmeasured liquid
stools
Ileostomy 1
Vital Signs
Temp Pulse Resp BP Pulse Ox
97.9 F 79 18 138/85 96
01/12/24 12:00 01/12/24 12:22 01/12/24 04:00 01/12/24 12:22 01/12/24 07:49
Lab Results
01/12/24 03:34
01/12/24 09:46
Calcium 8.3 mg/dl (8.4-10.2) L 01/12/24 09:46
Phosphorus 3.2 mg/dl (2.5-4.5) 01/12/24 09:46
Magnesium 2.3 mg/dl (1.6-2.3) 01/12/24 09:46
Total Bilirubin 0.9 mg/dl (0.2-1.3) 01/11/24 05:09
AST 25 U/L (14-36) 01/11/24 05:09
ALT 21 U/L (0-35) 01/11/24 05:09
Alkaline Phosphatase 160 U/L (38-126) H 01/11/24 05:09
Total Protein 3.9 g/dl (6.3-8.2) L 01/11/24 05:09
Albumin 1.9 g/dl (3.5-5.0) L 01/11/24 05:09
Physical Exam
-
GENERAL/NEURO: Awake, Alert, no distress
CHEST: Unlabored breathing on RA
ABDOMEN: Soft, Non-Tender, Non-Distended, jesisca in place. Ostomy with dark green liquid effluent.
--- NOTE | 2024-01-12 14:17 | PTOTSP ---
Speech Therapy
Presentation: Patient expressed recent (today) increased difficulty with word-finding and cognitive functioning needed to coordinate the movements to self feed and follow commands. Per patient's family, this is 'very new' (within the past day).
Findings: During oral mechanism examination, patient demonstrated right sided weakness (deviated slightly to the right). Patient stated that she feels as though the PO trials were 'sitting' in the right buccal/ cheek. DIPPER MACHINE OPERATOR noted slight right eye
droop when patient removed her glasses. Possible oral thrush noted, evidenced by white color and reported pain on tongue and back of throat.
Swallowing Function: During PO trials patient demonstrated difficulty with coordination (bringing spoon to her mouth, anterior leakage, and oral holding >17 seconds). DIPPER MACHINE OPERATOR trialed thin liquids via straw and yogurt via spoon in which patient appeared
to tolerate as she did not exhibit any overt pharyngeal swallowing difficulty (no audible s/sx of aspiration). However, oral dysphagia was observed (anterior leakage, pulling to the right side, and oral holding) which improved with assistance from
DIPPER MACHINE OPERATOR. Thus, would benefit from assistance/ supervision with PO.
Given the above information, DIPPER MACHINE OPERATOR alerted MD and RN on findings (concern for stroke? recommend neuro consult).
Recommendations:
1) Continuation of current diet (regular consistency solids and thin liquids) at this time; pending MD
2) Aspiration precautions
3) Assistance and supervision with PO
4) Medications as tolerated
5) Consider neuro consult given presentation
6) Consider further speech and language/ cognition evaluation
Plan: DIPPER MACHINE OPERATOR will continue to follow; pending hospitalization.
--- NOTE | 2024-01-12 15:19 | W.PN.ONC ---
Today's Communication / Plan
-
Hb improved
follow CBC
Impression
Impression
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
Recurrent small bowel obstruction
Recent enterococcal bacteremia
Leukocytosis (improved)
Hematemesis x2
Atrial fibrillation
Hypotension, tachycardia
Hypothermia
Acute kidney injury
Hypoalbuminemia
Hx polymyalgia rheumatica (chronic steroids)
anemia
Plan
Plan
1. Anemia - acute blood loss? vs. chronic illness vs. other
-hemoglobin improved s/p transfusion
-retic count elevated yesterday - BARBER negative - non-immune hemolysis? - await haptoglobin
-follow CBC
Subjective/Objective
Subjective/Objective
feels better - up in chair
Vital Signs:
Vital Signs
Temp Pulse Resp BP Pulse Ox
97.9 F 79 18 138/85 96
01/12/24 12:00 01/12/24 12:22 01/12/24 04:00 01/12/24 12:22 01/12/24 07:49
Lab Results:
Laboratory Data
WBC 10.1 10^3/uL (4.8-10.8) 01/12/24 03:34
Hgb 7.4 g/dL (12.0-16.0) L 01/12/24 03:34
Plt Count 137 10^3/uL (130-400) 01/12/24 03:34
PT 14.7 Sec (11.4-14.6) H 01/04/24 18:30
INR 1.17 01/04/24 18:30
APTT 25.2 Sec (23.4-35.0) 01/04/24 18:30
eGFR 55.55 01/12/24 09:46
Exam: unchanged
Orders
Orders
Orders From Last 24 Hours
01/11/24 18:23
BARBER Polyspecific GEL Urgent
Haptoglobin [S] Urgent
LDH Urgent
01/13/24 06:00
Reticulocyte Count IN AM
--- NOTE | 2024-01-12 15:30 | CON.NEURO4 ---
Consultation - Neurology 4
-
CONSULTING PHYSICIAN: Checo Cordon
REFERRING PHYSICIAN: Hospitalist
DICTATED BY: Checo Cordon
DATE/TIME OF REQUEST: 01/12/24
DATE/TIME OF CONSULTATION: 01/12/24
Reason for Consultation: Suspicion for stroke, tongue deviation and dysphagia
History of Present Illness:
The patient is an 83-year-old woman with a past no history of hypertension, atrial fibrillation who was admitted on 01/03 after a recent admission due to mesenteric ischemia and necrotic bowel where she required colectomy end ileostomy, also had had
enterococcal bacteremia at that time. During this admission she has been treated for recurrent small bowel obstruction with NG tube decompression. There had been an episode of hematemesis was not sure if this was due to small bowel obstruction or
another upper GI source this is been being treated with proton pump inhibitor with Eliquis being held due to this reason. Due to anemia and hemoglobin below 7 patient did have recent blood transfusion.
Patient's family has noted some memory problems and confusion with some pauses and slowness of speech and finding her words and she also had some slowness in swallowing when working with speech therapy. Speech therapy evaluation did show some oral
dysphagia. At this time she seems to be doing better than earlier in the day.
Past Medical History: Atrial fibrillation, hypertension, hypothyroidism
Surgical History: Colectomy with ileostomy
Family History: Reviewed and noncontributory
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
Review of Symptoms:
Patient denies any fever, headache, chest pain, shortness of breath, GI or symptoms.
Physical Exam:
Elderly woman in no acute distress pleasant well-groomed well-nourished, no signs of head or neck trauma oropharynx shows thrush on the tongue, no neck masses heart rate regular, ileostomy intact abdomen soft nontender no lower extremity edema is
seen
Neurologic Examination:
Patient is awake and alert, she is oriented to the year and present, she has some difficulty reciting the months of the year backwards but can do so slowly up until about June, naming repetition and comprehension is intact, praxis is normal
no right left confusion, no neglect. No strong evidence of aphasia on this examination. Memory recall is 3/3 after 5 minutes. On cranial nerve assessment, pupils are 3 mm bilateral, round and reactive to light and accommodation. Visual raphael are
full. Extraocular movements are intact. Facial sensations are intact and bilaterally symmetrical, there is no facial asymmetry. Hearing is intact bilaterally to normal conversation volume. Tongue palate and uvula are midline. Sternocleidomastoid
strengths are full bilaterally. Motor strengths are 5/5 bilateral upper and lower extremities on medical research [place] scale. There is no drift or involuntary movement noted. Deep tendon reflexes are 2+ bilateral upper and lower extremities and
Babinski is absent bilaterally. Sensations of pain, touch, temperature and vibration are intact and bilaterally symmetrical. There was no extinction noted on double simultaneous stimulation. Coordination is intact by finger to nose bilaterally.
Neuro Imaging: CT head noncontrast with expected generalized atrophy due to age, no signs of acute infarct or chronic infarction no hemorrhages no mass no ventriculomegaly no edema
Impressions
1. Major contribution from a delirium/toxic metabolic encephalopathy given 2 long hospitalizations with major illness, procedures and associated metabolic derangements and sleep deprivation.
2. Some evidence of oropharyngeal dysphagia although patient does have thrush.
3. No overt/focal signs of ischemic stroke although this remains a possibility given the risk factors of atrial fibrillation off anticoagulation
Recommendations:
1. Would consider starting aspirin in the next 1 to 2 days if no clinical signs of bleeding and hemoglobin counts remained stable
2. Neurologic checks
3. Speech therapy evaluation appreciated
4. Would give melatonin 1 mg at night and discussed measures to try and help with sleep schedule as this contributes to delirium
5. Minimize sedating medications as able
6. Patient does not feel she would tolerate MRI of the brain so we will check CT head noncontrast tomorrow afternoon understanding not as sensitive of the study for small ischemic strokes
Discussed patient care with: Patient and her family
[2024-01-12] MEDS: LEVOTHROID 35 MCG IV (18:00)
[2024-01-12] MEDS: MYCOSTATIN ORAL SUSPENSION 5 ML PO ×2 (18:01→21:05)
[2024-01-12 18:23] LABS: Glucose - Point of Care 158 mg/dl (70-99)
[2024-01-12] MEDS: NOVOLOG FLEXPEN-MODERATE RESISTANCE 1 UNITS SC ×2 (18:36→23:49)
[2024-01-12] MEDS: Parenteral Nutrition, Central 1000 IV (20:58)
[2024-01-12] MEDS: FLUSH (NSS) 2 FLUSH IV (23:44)
[2024-01-13] VITALS (12 sets, daily range): BP systolic 109–156; BP diastolic 71–84; BMI 22.4
[2024-01-13 00:39] LABS: Glucose - Point of Care 145 mg/dl (70-99)
[2024-01-13] MEDS: FLUSH (NSS) 2 FLUSH IV (01:05)
[2024-01-13] MEDS: MERREM 500 MG IV ×3 (01:05→17:47)
[2024-01-13] MEDS: STERILE WATER FOR INJECTION 10 ML IV ×3 (01:05→17:48)
--- NOTE | 2024-01-13 01:52 | PTCARENOTE ---
Pt up most of night. Offers no c/o pain. Smiling this shift compared to last evening. VSS. Afebrile. SR/PVC on CM. TPN continues infusing as ordered. Neuro/NIH completed per protocol WNL. Purewick in place draining yellow urine. Ileostomy red/budded
with loose brown bm. Midline abdominal incision approximated with jessica intact. Rest of assessment as documented. Maintained on Q2hr turns. Call shah remains within reach. Will continue to monitor.
[2024-01-13 04:45] LABS: Hemoglobin 7.5 g/dL (12.0-16.0); Mean Corp Hgb Conc. 32.6 g/dL (33.0-37.0); Mean Corpuscular Hgb 33.5 pg (27.0-31.0); Mean Corpuscular Volume 102.7 fL (81.0-99.0); Mean Platelet Volume 11.5 fL (7.4-10.4); Platelet Count 134 10^3/uL (130-400); Red Blood Cell Count 2.24 10^6/uL (4.20-5.40); Reticulocyte Count 7.1 % (0.4-2.8); White Blood Cell Count 7.9 10^3/uL (4.8-10.8)
[2024-01-13] MEDS: LOPRESSOR 5 MG IV ×4 (05:01→23:57)
[2024-01-13] MEDS: NOVOLOG FLEXPEN-MODERATE RESISTANCE SC ×2 (05:04→17:50)
[2024-01-13 05:12] LABS: Blood Urea Nitrogen 36 mg/dl (7-17); Calcium 8.5 mg/dl (8.4-10.2); Carbon Dioxide 26 mmol/L (22-30); Chloride 117 mmol/L (98-107); Estimated Creatinine Clearance 43 ml/min; Glucose 111 mg/dl (70-99); Potassium 3.6 mmol/L (3.5-5.1); Sodium 146 mmol/L (135-145); eGFR > 60.00
[2024-01-13 05:14] LABS: Glucose - Point of Care 137 mg/dl (70-99)
[2024-01-13] MEDS: HEPARIN 5000 UNITS SC ×2 (07:30→21:09)
[2024-01-13] MEDS: BenGay-Like 1 APPLIC TOPICAL ×2 (07:30→17:47)
[2024-01-13] MEDS: NSS (PRESERVATIVE FREE) 10 ML IV ×2 (07:32→21:10)
[2024-01-13] MEDS: MYCOSTATIN ORAL SUSPENSION 5 ML PO ×4 (07:32→21:19)
[2024-01-13] MEDS: PROTONIX IV 40 MG IV ×2 (07:33→21:10)
[2024-01-13] MEDS: SOLU-CORTEF 25 MG IV (07:33)
--- NOTE | 2024-01-13 07:44 | W.PN.NEURO.1 ---
Today's Communication / Plan
-
-Goal normotension
-Encourage normal sleep cycles, minimize sedating medications as able to help treat and prevent further delirium
-Check CT head non contrast today
-Would start on aspirin 81 mg daily when felt bleeding risks are acceptable
-Hold Eliquis for time being
-Neurologic checks and NIH scales
Neuro Assessment/Plan
Assessment
83 year old woman who had recent mesenteric ischemic and ischemic bowel s/p resection and ileostomy presents with small bowel obstruction
Shows some dysphagia, intermittent confusion and speech difficulties
Most likely most of her symptoms are due to delirium and toxic metabolic encephalopathy which is multifactorial, age, 2 hospitalizations and associated acute illness and metabolic derangements. Shows inattention, difficulty with complex tasks,
waxing and waning quality to her symptoms.
No overt focal signs of ischemic stroke though at risk for this with off Eliquis for atrial fibrillation given recent GI bleeding and had blood transfusion
Subjective/Objective
Subjective Data
Date of Service: January 13, 2024
No acute events overnight, this morning patient denies headache, chest pain, or abdominal pain
Objective Data
Vital Signs
Temp Pulse Resp BP Pulse Ox
97.8 F 67 21 148/82 96
01/13/24 04:02 01/13/24 06:00 01/13/24 06:00 01/13/24 06:00 01/13/24 06:00
Lab Results
01/13/24 04:02
01/13/24 04:02
PT 14.7 Sec (11.4-14.6) H 01/04/24 18:30
INR 1.17 01/04/24 18:30
APTT 25.2 Sec (23.4-35.0) 01/04/24 18:30
Sodium 146 mmol/L (135-145) H 01/13/24 04:02
Potassium 3.6 mmol/L (3.5-5.1) 01/13/24 04:02
BUN 36 mg/dl (7-17) H 01/13/24 04:02
Glucose 111 mg/dl (70-99) H 01/13/24 04:02
Calcium 8.5 mg/dl (8.4-10.2) 01/13/24 04:02
Phosphorus 3.2 mg/dl (2.5-4.5) 01/12/24 09:46
Twp-U-Mjtntfrexhx Pept 2890 pg/ml 01/07/24 17:23
Vitamin B12 979 pg/ml (239-931) H 01/11/24 05:09
Patient Allergies
amlodipine Allergy (Verified 01/07/24 21:43)
Nausea
doxycycline Allergy (Verified 12/24/23 06:30)
Hives
hydrocodone [From Vicodin] Allergy (Verified 01/07/24 21:43)
Vomiting
metoprolol [From Lopressor] Allergy (Verified 01/07/24 21:43)
Dizzy
sulfamethoxazole [From Bactrim] Allergy (Verified 12/24/23 06:30)
Rash
trimethoprim [From Bactrim] Allergy (Verified 12/24/23 06:30)
Rash
Review of Systems
-
History Source: Patient
All other systems: Reviewed and negative
Constitutional: No Symptoms
EENT: No Symptoms Reported
Respiratory: No Symptoms
Cardiac: No Symptoms
Abdomen/GI: No Symptoms
Genitourinary: No Symptoms
Musculoskeletal: No Symptoms
Skin: No Symptoms
Neuro: Speech Problem and See existing Neuro Note
Endocrine: No Symptoms
Hematologic / Lymphatic: No Symptoms
Allergy / Immunology: No Symptoms
Physical Exam
-
General: No Apparent Distress and Comfortable
Eyes: No Ptosis
HEENT: Normocephalic
Neck: No Bruits Bilaterally
Respiratory: Clear to Auscultation
Cardiac: Regular Rhythm
GI: Normal Bowel Sounds
Skin: Unremarkable
Extremities: No Clubbing
Psych: Unremarkable; Negative Agitated
Extended Neurological Exam
Mood & Affect: Mood Unremarkable and Affect Unremarkable
Attention Span & Concentration: Awake, Alert, Interactive and Other (Oriented to person, hospital, month, shows inattention and difficulty with complex cognitive tasks, difficulty counting backwards from 20, names months of the year forwards
adequately)
Memory: Reduced
Tremor: Hand Tremor Absent
Involuntary Movement: None
Speech: Quality Unremarkable, Quantity Unremarkable, Dysarthric and Other (Naming, repetition, comprehension of 2 step commands intact); Negative Expressive Aphasia or Receptive Aphasia
Cranial Nerve II: Left Eye: Pupillary Reactivity Unremarkable and Pupillary Size Unremarkable
Cranial Nerve II: Right Eye: Pupillary Reactivity Unremarkable and Pupillary Size Unremarkable
Cranial Nerves III, IV, : Extraocular Movement: Extraocular Movement Full in all Directions
Cranial Nerve VII: Facial Symmetry: Normal Facial Symmetry
Muscle Strength, Overall: Full Throughout
Muscle Bulk & Tone: Bulk Unremarkable
Pronator Drift: No Drift in Upper Extremities
Coordination: Rbckhj-ticz-kscwlp Testing Unremarkable
Babinski Sign: Absent Bilaterally
Data Reviewed
-
CT Head: Report Reviewed and Image Reviewed
Labs: Report Reviewed
--- NOTE | 2024-01-13 08:37 | PTCARENOTE ---
Assumed care of Pt at shift change. Pt awake, resting comfortably in bed. Improved mentation noted; improved accuracy and response time to questions and commands; Pt continues to report 'brain fog'. NIH performed = 0; Keith pulled yesterday, Pt
voiding without difficulty. Will continue to monitor and assess.
--- NOTE | 2024-01-13 10:24 | W.PN.GS2 ---
Today's Communication / Plan
-
Continue diet, encourage p.o. intake. Will start to wean TPN to hopefully improve appetite.
Assessment / Plan
-
83-year-old female with PMH of A-fib, SSS, HTN, HLD, GERD, hypothyroid who presented with mesenteric ischemia and underwent a TAC with end ileostomy on 12/27/[address] López, eventually discharged on 01/02; she came back to the hospital the next day
with N/V and was found to have an SBO on CT; being treated nonoperatively.
--WBC is normal. Trend. ID following. C. difficile, stool cultures and blood cultures all negative
--Continue IV fluids per nephrology.
--Pain control Tylenol and/or Toradol, avoid narcotics if possible
--Continue IV antibiotics per ID.
--Continue DVT PPx with SQH
--OOB/IS, appreciate PT
--Continue regular diet. Decrease TPN for now, may stop tomorrow if tolerating good p.o. intake.
--No plans for surgical intervention at this time.
--Continue to hold Eliquis given concern for ongoing bleeding, may consider restarting tomorrow.
--jessica to be removed prior to discharge
Time Spent
Total Time Spent with Patient (in minutes): 20
Subjective Data
-
Date of Service: January 13, 2024
Interval Events:
No acute events overnight. Slept well. Pain Controlled. Denies Nausea/Vomiting, +bowel function. Tolerating diet, minimal p.o. intake.
Objective Data
-
Intake and Output
01/12/24 01/13/24 01/14/24
06:59 06:59 06:59
Intake Total 2550 / 2550 1802 / 1802
Output Total 1125 / 1125 1210 / 1210
Balance 1425 / 1425 592 / 592
Intake:
Oral fluids 360 / 360 360 / 360
IV fluids (Total) 1460 / 1460 500 / 500
TPN/PPN 480 / 480 942 / 942
Blood Product Amount Infused ( 250 / 250
mL)
Packed Rbc Leukoreduced Unit 250 / 250
[id number]
Output:
Liquid stool amount 575 / 575 60 / 60
Ileostomy 575 / 575 60 / 60
Urine, Keith 550 / 550
Urine, Voided 1150 / 1150
Other:
Number of unmeasured liquid
stools
Ileostomy 1
Vital Signs
Temp Pulse Resp BP Pulse Ox
97.7 F 67 21 148/82 95
01/13/24 07:05 01/13/24 06:00 01/13/24 06:00 01/13/24 06:00 01/13/24 09:32
Lab Results
01/13/24 04:02
01/13/24 04:02
Calcium 8.5 mg/dl (8.4-10.2) 01/13/24 04:02
Phosphorus 3.2 mg/dl (2.5-4.5) 01/12/24 09:46
Magnesium 2.3 mg/dl (1.6-2.3) 01/12/24 09:46
Total Bilirubin 0.9 mg/dl (0.2-1.3) 01/11/24 05:09
AST 25 U/L (14-36) 01/11/24 05:09
ALT 21 U/L (0-35) 01/11/24 05:09
Alkaline Phosphatase 160 U/L (38-126) H 01/11/24 05:09
Total Protein 3.9 g/dl (6.3-8.2) L 01/11/24 05:09
Albumin 1.9 g/dl (3.5-5.0) L 01/11/24 05:09
Physical Exam
-
GENERAL/NEURO: Awake, Alert, no distress
CHEST: Unlabored breathing on RA
ABDOMEN: Soft, Non-Tender, Non-Distended, incision clean dry and intact with jessica in place. Stoma pink patent productive of semisolid effluent.
[2024-01-13 12:16] LABS: Glucose - Point of Care 188 mg/dl (70-99)
[2024-01-13] MEDS: NOVOLOG FLEXPEN-MODERATE RESISTANCE 1 UNITS SC (12:47)
--- NOTE | 2024-01-13 17:26 | W.PN.HOSP.TC ---
Today's Communication/Plan
-
TPN. IV antibiotics. CT of the head.
Assessment / Plan
Assessment / Plan
Physical exam:
General: Acutely ill
HEENT: Normocephalic, Atraumatic and Moist Mucous Membranes
Respiratory: Clear to Auscultation; Negative Wheezes, Rales or Rhonchi
Cardiac: Regular Rhythm and S1/S2
GI: Soft, Tender and Nondistended. Ileostomy in place.
Musculoskeletal: No Clubbing, No Cyanosis and No Edema
Neuro: Awake, Alert and Oriented
Psych: Calm
A/P:
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
-On Low Residue per colorectal surgery/general surgery.
-Reviewed repeated CT scan of the abdomen with contrast and CTA abdomen pelvis from 01/09 with no ischemic findings but nonspecific abnormalities.
-WBC 7.9 today
-Pain control
-On TPN and surgery considering to wean TPN
-On PPI
-Speech therapy on board. If oral intake stable consider switch her meds to oral over the next 24 hrs.
-On 01/09 crisis therapist consulted and recommended transfer to ICU but patient and family declined. Currently stable-discussed with crisis therapist.
-Discussed with family at bedside on 01/12 (I have discussed with daughter multiple times but today is her son at bedside).
-Discussed with RN.
Swallowing issues with intermittent confusion and speech difficulties likely Delirium but r/o Stroke:
-Informed by nurse that patient/family requested Speech Therapy on 01/11 therefore order placed ([facility] had discussed but declined day prior).
-SP reached out to me due to concerns on her evaluation.
-Neurology consulted and discussed with neuro.
-CT head unremarkable
-NIH score
-MRI brain discussed by neuro with patient and family and not interested.
-Repeated CT of the head today unremarkable for acute findings.
-ASA recommended to start if not Eliquis over the next 1-2 days if cleared by surgery.
Oral candidiasis:
-Started Nystatin
-EKG today NSR with QTc normal at 327
Hypernatremia
-Mild and trending down
-If worsen might need hypotonic fluids but reeval.
Hypotension:
-Resolved
-Likely multifactorial-->anemia, infection, volume depletion, possible relative adrenal insufficiency
-Continue fluids, blood transfusion, may consider stress dose steroids but continue current steroids to avoid interference with wound healing.
Anemia:
-Blood transfusion on 01/10
-Hemoglobin 6.6-->7.5 today
-Hematology eval and per hematology etiology in the acute blood loss or chronic illness or other. Workup in progress.
Acute kidney injury:
-Improved
-Cr 0.8 today
-Off IVF
Neck pain, likely musculoskeletal:
-Improved
-Local Bengay
-Tylenol as needed
-No need for further workup.
Recent enterococcal bacteremia in the setting of ischemic bowel:
-Continue IV meropenem
-ID on board and change antibiotics to broaden spectrum yesterday on 01/09 (from Unasyn to Meropenem)
-Repeated latest blood cultures on 01/09 no growth to date.
Diarrhea:
-Improved
-C. difficile antigen positive and toxin negative likely colonizer
-Respiratory cultures negative except for Shiga toxin test pending.
Elevated troponin:
- Elevated troponin due to non-ischemic myocardial injury
-Echo no WMA and normal LV and RV fx
Paroxysmal atrial fibrillation and typical atrial flutter:
-On normal sinus rhythm
-Cardiology recommends to change IV Lopressor to p.o. Cardizem when able to tolerates oral
-Echocardiogram unremarkable on 01/08, EF 65 to 70% and normal right ventricular size and function, normal regional wall motion, just trace mitral regurgitation aortic regurgitation. No pericardial effusion.
-Anticoagulation when cleared by surgery
Volume overload in the setting of hypoalbuminemia:
-Third spacing and intravascular volume depletion.
-Lasix as needed.
Hypothyroidism:
-On IV Synthroid
-Change to oral if cont tolerating oral tomorrow
Polymyalgia rheumatica:
-Chronically on steroids
-On IV steroids--> currently on lowest dose possible to avoid adrenal insufficiency but no stress doses to avoid wound healing issues.
-Change to oral if cont tolerating oral tomorrow
Hyponatremia:
-Resolved
Hypokalemia:
-Replete and trend
DVT prophylaxis:
Heparin SQ
CODE STATUS:
DNR.
Total time spent on today's encounter was 52 minutes which included time spent in counseling the patient/family regarding diagnosis and treatment plan as listed above, goals of care, and symptom management. Case was discussed with nursing staff,
specialists, and care coordinators/case management. All labs and imaging personally reviewed by me. Remainder the time spent in detailed review of previous records, lab data, imaging, and other medical provider documentation.
Anticipated Discharge: > 48 hours
Subjective/Interval History
-
Date of Service: January 13, 2024
No acute events noted. Her mentation fluctuates but currently she is alert and neurologically intact by the time of my evaluation. Overall she feels tired. She is eating better but not much yet. No chest pain or shortness of breath. No
abdominal pain nausea or vomiting. Remains afebrile.
Objective Data
-
Vital Signs:
Vital Signs
Temp Pulse Resp BP Pulse Ox
97.7 F 71 17 109/71 95
01/13/24 07:05 01/13/24 16:00 01/13/24 16:00 01/13/24 12:51 01/13/24 16:46
I&O
01/12/24 01/13/24 01/14/24
06:59 06:59 06:59
Intake Total 2550 / 2550 1802 / 1802
Output Total 1125 / 1125 1210 / 1210
Balance 1425 / 1425 592 / 592
Review of Systems
-
All other systems: Reviewed and negative
[2024-01-13] MEDS: LEVOTHROID 35 MCG IV (17:48)
[2024-01-13 17:58] LABS: Glucose - Point of Care 134 mg/dl (70-99)
[2024-01-13] MEDS: OFIRMEV 100 IV (18:19)
[2024-01-13] MEDS: Parenteral Nutrition, Central 720 IV (21:11)
[2024-01-13] MEDS: BenGay-Like TOPICAL (21:20)
--- NOTE | 2024-01-13 23:25 | PTCARENOTE ---
Assumed care of Pt from day RN. Pt AAOX3, appears to be resting in bed comfortably. Improved mentation, accuracy and response time to questions. Pt has no complaints at this time. Assessment care and vitals as charted.
[2024-01-14] VITALS (16 sets, daily range): BP systolic 110–159; BP diastolic 65–103; PULSE 73–75; BMI 23.3
[2024-01-14 00:07] LABS: Glucose - Point of Care 105 mg/dl (70-99)
[2024-01-14] MEDS: NOVOLOG FLEXPEN-MODERATE RESISTANCE SC ×4 (00:28→17:24)
[2024-01-14 02:29] LABS: Haptoglobin 231 mg/dL (30-200)
[2024-01-14] MEDS: MERREM 500 MG IV ×2 (02:53→09:11)
[2024-01-14] MEDS: STERILE WATER FOR INJECTION 10 ML IV ×2 (02:53→09:12)
[2024-01-14 04:39] LABS: Hemoglobin 7.8 g/dL (12.0-16.0); Mean Corp Hgb Conc. 32.5 g/dL (33.0-37.0); Mean Corpuscular Hgb 33.3 pg (27.0-31.0); Mean Corpuscular Volume 102.6 fL (81.0-99.0); Mean Platelet Volume 11.6 fL (7.4-10.4); Platelet Count 128 10^3/uL (130-400); Red Blood Cell Count 2.34 10^6/uL (4.20-5.40); Red Cell Dist. Width 20.6 % (11.5-14.5)
[2024-01-14 04:58] LABS: Prealbumin (Transthyretin) 13.9 mg/dl (17.6-36.0)
[2024-01-14 05:06] LABS: ALT (SGPT) 80 U/L (0-35); AST (SGOT) 110 U/L (14-36); Alkaline Phosphatase 508 U/L (38-126); Blood Urea Nitrogen 34 mg/dl (7-17); Calcium 8.7 mg/dl (8.4-10.2); Carbon Dioxide 24 mmol/L (22-30); Chloride 114 mmol/L (98-107); Estimated Creatinine Clearance 49 ml/min; Glucose 87 mg/dl (70-99); Magnesium 2.2 mg/dl (1.6-2.3); Phosphorus 2.8 mg/dl (2.5-4.5); Potassium 3.7 mmol/L (3.5-5.1); Sodium 144 mmol/L (135-145); Total Bilirubin 1.5 mg/dl (0.2-1.3); Total Protein 4.4 g/dl (6.3-8.2); Triglycerides 88 mg/dl (10-149); eGFR > 60.00
[2024-01-14] MEDS: LOPRESSOR 5 MG IV ×2 (05:18→13:05)
[2024-01-14 06:17] LABS: Glucose - Point of Care 122 mg/dl (70-99)
--- NOTE | 2024-01-14 07:20 | W.PN.NEURO.1 ---
Today's Communication / Plan
-
-Goal normotension
-Continue Neuro checks, stop NIH scales
-Minimize sedating medications as able
-Would aim to restart Eliquis if felt bleeding risks acceptable
-Set expectations that delirium will take some time to resolve, may show waxing and waning status, try to keep adequate sleep schedule
Will follow as needed call with questions and concerns
Neuro Assessment/Plan
Assessment
83 year old woman who had recent mesenteric ischemic and ischemic bowel s/p resection and ileostomy presents with small bowel obstruction
Shows some dysphagia, intermittent confusion and speech difficulties
Most likely most of her symptoms are due to delirium and toxic metabolic encephalopathy which is multifactorial, age, 2 hospitalizations and associated acute illness and metabolic derangements. Shows inattention, difficulty with complex tasks,
waxing and waning quality to her symptoms.
No overt focal signs of ischemic stroke though at risk for this with off Eliquis for atrial fibrillation given recent GI bleeding and had blood transfusion
Subjective/Objective
Subjective Data
Date of Service: January 14, 2024
No acute events overnight, patient denies pain, ate about 5 cheerios yesterday
Objective Data
Vital Signs
Temp Pulse Resp BP Pulse Ox
98.0 F 75 30 147/89 94
01/14/24 02:52 01/14/24 06:00 01/14/24 06:00 01/14/24 06:00 01/14/24 03:46
Lab Results
01/14/24 03:53
01/14/24 03:53
PT 14.7 Sec (11.4-14.6) H 01/04/24 18:30
INR 1.17 01/04/24 18:30
APTT 25.2 Sec (23.4-35.0) 01/04/24 18:30
Sodium 144 mmol/L (135-145) 01/14/24 03:53
Potassium 3.7 mmol/L (3.5-5.1) 01/14/24 03:53
BUN 34 mg/dl (7-17) H 01/14/24 03:53
Glucose 87 mg/dl (70-99) 01/14/24 03:53
Calcium 8.7 mg/dl (8.4-10.2) 01/14/24 03:53
Phosphorus 2.8 mg/dl (2.5-4.5) 01/14/24 03:53
Iqi-C-Nwleildduwx Pept 2890 pg/ml 01/07/24 17:23
Vitamin B12 979 pg/ml (239-931) H 01/11/24 05:09
Patient Allergies
amlodipine Allergy (Verified 01/07/24 21:43)
Nausea
doxycycline Allergy (Verified 12/24/23 06:30)
Hives
hydrocodone [From Vicodin] Allergy (Verified 01/07/24 21:43)
Vomiting
metoprolol [From Lopressor] Allergy (Verified 01/07/24 21:43)
Dizzy
sulfamethoxazole [From Bactrim] Allergy (Verified 12/24/23 06:30)
Rash
trimethoprim [From Bactrim] Allergy (Verified 12/24/23 06:30)
Rash
Review of Systems
-
History Source: Patient
All other systems: Reviewed and negative
Constitutional: No Symptoms
EENT: No Symptoms Reported
Respiratory: No Symptoms
Cardiac: No Symptoms
Abdomen/GI: No Symptoms
Genitourinary: No Symptoms
Musculoskeletal: No Symptoms
Skin: No Symptoms
Neuro: Speech Problem and See existing Neuro Note
Endocrine: No Symptoms
Hematologic / Lymphatic: No Symptoms
Allergy / Immunology: No Symptoms
Physical Exam
-
General: No Apparent Distress
Eyes: No Ptosis
HEENT: Other (Oral thrush)
Neck: Full Range of Motion
Respiratory: No Dyspnea; Negative Wheezes
Cardiac: No Murmur
GI: Soft, Non-tender and Other (Ileostomy in place)
Skin: Warm and Dry; Negative Rash
Extremities: No Edema
Psych: Negative Agitated
Extended Neurological Exam
Attention Span & Concentration: Other (Awake, oriented to hospital, difficulty with subtracting 10 - 7, can count to 20 outload with no problems)
Memory: Reduced
Tremor: Hand Tremor Absent
Involuntary Movement: None
Speech: Negative Receptive Aphasia, Mildly Reduced Output or Dysarthric
Cranial Nerve II: Left Eye: Pupillary Reactivity Unremarkable, Pupillary Size Unremarkable and Visual Renee Intact
Cranial Nerve II: Right Eye: Pupillary Reactivity Unremarkable, Pupillary Size Unremarkable and Visual Renee Intact
Cranial Nerves III, IV, : Extraocular Movement: Extraocular Movement Full in all Directions
Cranial Nerve VII: Facial Symmetry: Normal Facial Symmetry
Muscle Strength, Overall: Full Throughout
Muscle Bulk & Tone: Bulk Unremarkable
Pronator Drift: No Drift in Upper Extremities
Deep Tendon Reflexes: Trace Throughout
Coordination: Acpfqz-wsus-rtzakh Testing Unremarkable
Data Reviewed
-
CT Head: Report Reviewed and Image Reviewed
Labs: Report Reviewed
--- NOTE | 2024-01-14 08:02 | W.PN.HOSP.TC ---
Today's Communication/Plan
-
Would like to start on her oral meds but think we will need another speech therapy maría is still having some difficulty over the weekend with low residue
Neurology recommending aspirin if Eliquis cannot be started in the next 1 to [address] on chewable aspirin presently while awaiting
TPN continues in defer management to surgery
Increase activity once can get her on oral meds can refer back for possible rehab
Assessment / Plan
Assessment / Plan
Physical exam:
General: Acutely ill
HEENT: Normocephalic, Atraumatic and Moist Mucous Membranes
Respiratory: Clear to Auscultation; Negative Wheezes, Rales or Rhonchi
Cardiac: Regular Rhythm and S1/S2
GI: Soft, Tender and Nondistended. Ileostomy in place.
Musculoskeletal: No Clubbing, No Cyanosis and No Edema
Neuro: Awake, Alert and Oriented
Psych: Calm
A/P:
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
-On Low Residue per colorectal surgery/general surgery.
-Reviewed repeated CT scan of the abdomen with contrast and CTA abdomen pelvis from 01/09 with no ischemic findings but nonspecific abnormalities.
-WBC 7.9 today
-Pain control
-On TPN and surgery considering to wean TPN
-On PPI
-Speech therapy on board. If oral intake stable consider switch her meds to oral over the next 24 hrs.
-On 01/09 precise winder consulted and recommended transfer to ICU but patient and family declined. Currently stable-discussed with precise winder.
-Discussed with family at bedside on 01/12 (I have discussed with daughter multiple times but today is her son at bedside).
-Discussed with RN.
Swallowing issues with intermittent confusion and speech difficulties likely Delirium but r/o Stroke:
-Informed by nurse that patient/family requested Speech Therapy on 01/11 therefore order placed (CRS had discussed but declined day prior).
-SP reached out to me due to concerns on her evaluation.
-Neurology consulted and discussed with neuro.
-CT head unremarkable
-NIH score
-MRI brain discussed by neuro with patient and family and not interested.
-Repeated CT of the head today unremarkable for acute findings.
-ASA recommended to start if not Eliquis over the next 1-2 days if cleared by surgery.
Oral candidiasis:
-Started Nystatin
-EKG today NSR with QTc normal at 327
Hypernatremia
-Mild and trending down
-If worsen might need hypotonic fluids but reeval.
Hypotension:
-Resolved
-Likely multifactorial-->anemia, infection, volume depletion, possible relative adrenal insufficiency
-Continue fluids, blood transfusion, may consider stress dose steroids but continue current steroids to avoid interference with wound healing.
Anemia:
-Blood transfusion on 01/10
-Hemoglobin 6.6-->7.5 today
-Hematology eval and per hematology etiology in the acute blood loss or chronic illness or other. Workup in progress.
Acute kidney injury:
-Improved
-Cr 0.8 today
-Off IVF
Neck pain, likely musculoskeletal:
-Improved
-Local Bengay
-Tylenol as needed
-No need for further workup.
Recent enterococcal bacteremia in the setting of ischemic bowel:
-Continue IV meropenem
-ID on board and change antibiotics to broaden spectrum yesterday on 01/09 (from Unasyn to Meropenem)
-Repeated latest blood cultures on 01/09 no growth to date.
Diarrhea:
-Improved
-C. difficile antigen positive and toxin negative likely colonizer
-Respiratory cultures negative except for Shiga toxin test pending.
Elevated troponin:
- Elevated troponin due to non-ischemic myocardial injury
-Echo no WMA and normal LV and RV fx
Paroxysmal atrial fibrillation and typical atrial flutter:
-On normal sinus rhythm
-Cardiology recommends to change IV Lopressor to p.o. Cardizem when able to tolerates oral
-Echocardiogram unremarkable on 01/08, EF 65 to 70% and normal right ventricular size and function, normal regional wall motion, just trace mitral regurgitation aortic regurgitation. No pericardial effusion.
-Anticoagulation when cleared by surgery
Volume overload in the setting of hypoalbuminemia:
-Third spacing and intravascular volume depletion.
-Lasix as needed.
Hypothyroidism:
-On IV Synthroid
-Change to oral if cont tolerating oral tomorrow
Polymyalgia rheumatica:
-Chronically on steroids
-On IV steroids--> currently on lowest dose possible to avoid adrenal insufficiency but no stress doses to avoid wound healing issues.
-Change to oral if cont tolerating oral tomorrow
Hyponatremia:
-Resolved
Hypokalemia:
-Replete and trend
DVT prophylaxis:
Heparin SQ
CODE STATUS:
DNR.
Total time spent on today's encounter was 52 minutes which included time spent in counseling the patient/family regarding diagnosis and treatment plan as listed above, goals of care, and symptom management. Case was discussed with nursing staff,
specialists, and care coordinators/case management. All labs and imaging personally reviewed by me. Remainder the time spent in detailed review of previous records, lab data, imaging, and other medical provider documentation.
Anticipated Discharge: 24 - 48 hours
Subjective/Interval History
-
Date of Service: January 14, 2024
Seen with daughter at bedside woke patient no issues overnight but continues to be lose train of thought and midsentence daughter does state that may be some improvement in her ability to swallow on the right side and she will awaiting repeat speech
eval today.
Objective Data
-
Labs:
Laboratory Results
01/14/24
03:53
WBC 9.0
Hgb 7.8 L
Hct 24.0 L
Plt Count 128 L
Sodium 144
Potassium 3.7
Chloride 114 H
Carbon Dioxide 24
BUN 34 H
Creatinine 0.7
Glucose 87
Calcium 8.7
Total Bilirubin 1.5 H
AST 110 H
ALT 80 H
Alkaline Phosphatase 508 H
Vital Signs:
Vital Signs
Temp Pulse Resp BP Pulse Ox
98.0 F 75 30 147/89 94
01/14/24 02:52 01/14/24 06:00 01/14/24 06:00 01/14/24 06:00 01/14/24 03:46
I&O
01/13/24 01/14/24 01/15/24
06:59 06:59 06:59
Intake Total 1802 / 1802 1134 / 1134
Output Total 1210 / 1210 1050 / 1050
Balance 592 / 592 84 / 84
Review of Systems
-
Unable to obtain full review of systems at this time due to: Other (Loses train of thought and midsentence)
Respiratory: Reports No Symptoms
Cardiac: Reports No Symptoms
Genitourinary: Reports No Symptoms
Neuro: Reports Other (Loses train of thought midsentence)
Physical Exam
-
General: Appears Chronically Ill
HEENT: Normocephalic
Respiratory: Clear to Auscultation
Cardiac: Regular Rhythm and Bradycardic (Remains in sinus rhythm)
GI: Soft, Nontender and Ostomy
Genito-urinary: No Costovertebral Tender
Musculoskeletal: No Clubbing
Psych: Calm
Data Reviewed
-
Total Time Spent with Patient (in minutes): 56
Labs: Labs Reviewed by me (Hemoglobin 7.8 stable/white count 9.0 stable/platelet count 128 stable/electrolytes stable BUN 34)
[2024-01-14] MEDS: HEPARIN 5000 UNITS SC (08:44)
[2024-01-14] MEDS: MYCOSTATIN ORAL SUSPENSION 5 ML PO ×4 (08:44→19:58)
[2024-01-14] MEDS: SOLU-CORTEF 25 MG IV (08:44)
[2024-01-14] MEDS: NSS (PRESERVATIVE FREE) 10 ML IV (08:45)
[2024-01-14] MEDS: PROTONIX IV 40 MG IV (08:45)
[2024-01-14] MEDS: BenGay-Like 1 APPLIC TOPICAL ×3 (08:45→22:38)
[2024-01-14] MEDS: LOW STRENGTH ASPIRIN 81 MG PO (09:11)
--- NOTE | 2024-01-14 10:01 | CM ---
Patient from [facility] with recent colectomy with ileostomy with Dx Recurrent SBO, anemia, Swallowing issues with intermittent confusion and speech difficulties likely Delirium. Low residue diet. TPN. PICC. IV Abx. PT 01/11 recommends
skilled rehab. OT 01/08 recommends Acute vs SNF.
Received phone call from daughter Theresa who expressed concern that her mother has had periods of confusion and difficulty eating the last few days. Daughter asking to talk with MD about her confusion and prognosis related to that.
Message from Dr Valero; He spoke with daughter earlier today at the bedside. Tell daughter I spoke to neurology personally, and they still feel it's delirium and should clear.
Spoke with Theresa again and conveyed that Dr Valero spoke with neurology and feels that her mother has delirium that should clear.
Plan continue to follow patient's progress.
Plan follow up with Harsha AVILES about patient's return, when closer to d/c.
--- NOTE | 2024-01-14 10:47 | W.PN.CRS1 ---
Today's Communication / Plan
-
No further TPN after this bag runs out
low residue with Ensure
jessica removed
okay to restart Eliquis from our perpsective
Assessment/Plan
-
83-year-old female with PMH of A-fib, SSS, HTN, HLD, GERD, hypothyroid who presented with mesenteric ischemia and underwent a TAC with end ileostomy on 12/27/[address] López, eventually discharged on 01/02; she came back to the hospital the next day
with N/V and was found to have an SBO on CT; being treated nonoperatively.
1. Hemoglobin improving, 7.8 today.
2. WBC has normalized to 9.0
3. IV fluids per nephrology.
4. Pain control Tylenol and/or Toradol, avoid narcotics if possible
5. Continue IV antibiotics per ID.
6. Continue DVT PPx with SQH
7. OOB/IS, appreciate PT
8. Appreciate cardiology
9. Appreciate hospitalist and strand forming machine operator.
10. Continue low residue diet. Ensure added. Allow this bag of TPN to run out, then stop.
11. No plans for surgical intervention at this time.
12. Okay to restart Eliquis from our perspective.
13. Kiefer removed.
Subjective Data
Subjective Data
Date of Service: January 14, 2024
Patient states she had a good weekend. Her pain is controlled. She is eating small amounts but improving. She denies nausea or vomiting.
Objective Data
-
Vital Signs
Temp Pulse Resp BP Pulse Ox
97.6 F 74 17 144/90 94
01/14/24 07:30 01/14/24 08:00 01/14/24 08:00 01/14/24 08:00 01/14/24 03:46
Intake & Output
01/13/24 01/14/24 01/15/24
06:59 06:59 06:59
Intake Total 1802 / 1802 1134 / 1134
Output Total 1210 / 1210 1050 / 1050
Balance 592 / 592 84 / 84
Intake:
Oral fluids 360 / 360 60 / 60
IV fluids (Total) 500 / 500
IV piggybacks 200 / 200
TPN/PPN 942 / 942 874 / 874
Output:
Liquid stool amount 60 / 60 150 / 150
Ileostomy 60 / 60 150 / 150
Urine, Voided 1150 / 1150 900 / 900
Other:
How many times incontinent 2
SATURATED amount urine
Lab Results
01/14/24 03:53
01/14/24 03:53
Physical Exam
-
General: No Acute Distress and AOx3
Abdomen: Soft, Non Distended, Non Tender and Other (stoma warm and pink with output)
Incision: Clear, Dry, Intact
--- NOTE | 2024-01-14 11:00 | W.PN.ID1 ---
Date of Service
Date of Service: January 14, 2024
Today's Communication
D/C abx and observe
Assessment / Plan
# Enteritis
# Leukocytosis - resolved
# Drug allergies: doxycycline (hives), bactrim (rash)
- C diff ag positive toxin neg
- unable to take oral meds at this time
- broadened abx to meropenem 01/10/24
- Steroid dose decreased as per hospitalist
--> With normalization of WBC, will D/C abx and observe.
# Recent Enterococcal bacteremia due to ischemic bowel
- Bacteremia cleared as of 12/27
- 01/09 blood cultures no growth to date
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
- Conservative management per Colorectal
- Remains on TPN.
#Anemia
#Other:
Renal insufficiency
Atrial fibrillation
HTN
Dyslipidemia
Sciatica
Lumbar spinal stenosis
PMR
Trigeminal neuralgia
����������������������������������������������������������
Chief Complaint
-: Leukocytosis
Subjective / Review of Systems
Review of Systems: No Fever and No Chills
Vital Signs / Physical Exam
Vital Signs
Vital Signs
Temp Pulse Resp BP Pulse Ox
97.6 F 74 17 144/90 94
01/14/24 07:30 01/14/24 08:00 01/14/24 08:00 01/14/24 08:00 01/14/24 03:46
Physical Exam
Constitutional: No Acute Distress, Comfortable, Non-toxic and Cachetic
Head: Normocephalic
Eyes: No Conjunctival Hemorrhage and Sclera Anicteric
Cardiovascular: S1/S2; Negative S3/S4
Pulmonary: Non Labored; Negative Wheezes or Rales
Gastrointestinal: Soft, Non Tender, Non Distended and Other (ostomy in place)
Extremities: Negative Cyanosis or Erythema
Neurological: Awake and Alert
Psychological: Calm
Objective Data
Lab Data
Lab Results
01/14/24 03:53
01/14/24 03:53
PT 14.7 Sec (11.4-14.6) H 01/04/24 18:30
INR 1.17 01/04/24 18:30
APTT 25.2 Sec (23.4-35.0) 01/04/24 18:30
Estimated Creat Clear 49 ml/min 01/14/24 03:53
Lactic Acid Cancelled 01/11/24 06:00
Total Bilirubin 1.5 mg/dl (0.2-1.3) H 01/14/24 03:53
AST 110 U/L (14-36) H 01/14/24 03:53
ALT 80 U/L (0-35) H 01/14/24 03:53
Alkaline Phosphatase 508 U/L (38-126) H 01/14/24 03:53
C-Reactive Protein 145.00 mg/L (0.0-10.00) H 01/07/24 17:23
Most recent labs reviewed.
Micro Results:
01/10/24 16:02 Salmonella/Shigella Culture - Final
Feces/Stool No Salmonella, Shigella, Aeromonas or Plesiomonas species
isolated.
Campylobacter Culture - Final
No Campylobacter species isolated.
Shiga Toxin Test - Final
No E. coli Shiga Toxin 1 or 2 detected.
01/10/24 05:28 Blood Culture - Preliminary
Blood/Venous No Growth in 4 days- Final report to follow
01/10/24 04:55 Blood Culture - Preliminary
Blood/Venous No Growth in 4 days- Final report to follow
01/06/24 10:46 Blood Culture - Final
Blood/Venous No Growth - Final Report
01/06/24 10:10 Blood Culture - Final
Blood/Venous No Growth - Final Report
01/10/24 05:05 C. difficile GDH Antigen & Toxins - Final
Feces/Stool C. difficile antigen positive, toxin negative.
Clostridium difficile present, but toxin not detected.
Patient may be a carrier, colonized with nontoxinogenic
strain or the level of toxin in sample is below detection
limits. This information should be used in conjunction with
the patient's clinical history.
01/10/24 04:55 Influenza Types A & B (TOMMY) - Final
Nasal Swab Negative for Influenza A & B, NAAT
Negative results must be combined with clinical observations
and patient history.
Nucleic Acid Amplification test (NAAT)performed on the
[employer] platform.
Imaging:
01/04/24 CXR: Nasogastric tube in place terminating within a moderate-sized hiatal hernia. Small bilateral pleural effusions with adjacent mild compressive subsegmental atelectasis in the lower lobes of both lungs.
01/04/24 CT a/p: There is a small bowel obstruction. The point of transition is in the left lower quadrant but difficult to isolate. There is thickening of the decompressed loops of small bowel extending to the ileostomy. There is fluid in the
abdomen and pelvis which may be related to recent surgery, versus ascites.
01/04/24 LE venous doppler: no DVT
[2024-01-14 13:11] LABS: Glucose - Point of Care 128 mg/dl (70-99)
--- NOTE | 2024-01-14 14:49 | PTCARENOTE ---
Assumed care of patient at beginning of this shift from previous RN with TPN infusing. Surgery in to see patient this morning and removed jessica; scant serous drainage from upper incision after staple removed while surgery still in room. TPN will
not be renewed per surgery; instructed to let current bag continue to run until empty. Patient tolerated breakfast and lunch, eating small amounts. NIHSS = 1 d/t patient forgetting her age. Ileostomy draining liquid brown/green, stoma is red and
budded. See worklist for full assessment and vital signs; see MAR for med administration.
[2024-01-14] MEDS: DELTASONE 10 MG PO (17:24)
[2024-01-14] MEDS: TYLENOL 1000 MG PO (17:25)
[2024-01-14 17:34] LABS: Glucose - Point of Care 110 mg/dl (70-99)
[2024-01-14] MEDS: ELIQUIS 2.5 MG PO (19:58)
[2024-01-14] MEDS: NSS (PRESERVATIVE FREE) IV (19:58)
[2024-01-15] VITALS (10 sets, daily range): BP systolic 105–154; BP diastolic 62–85; PULSE 68; BMI 22.3
[2024-01-15 00:10] LABS: Glucose - Point of Care 108 mg/dl (70-99)
[2024-01-15] MEDS: NOVOLOG FLEXPEN-MODERATE RESISTANCE SC ×4 (00:27→17:52)
[2024-01-15] MEDS: TYLENOL PO (00:28)
--- NOTE | 2024-01-15 00:55 | PTCARENOTE ---
ax3- forgetful. sinus bp wnl afebrile. tolerating po pills and food. tpn completed. minimal pain -
[2024-01-15 05:45] LABS: Hematocrit 24.4 % (37.0-47.0); Mean Corp Hgb Conc. 32.8 g/dL (33.0-37.0); Mean Corpuscular Hgb 33.3 pg (27.0-31.0); Mean Corpuscular Volume 101.7 fL (81.0-99.0); Mean Platelet Volume 12.1 fL (7.4-10.4); Platelet Count 120 10^3/uL (130-400); Red Cell Dist. Width 19.9 % (11.5-14.5); White Blood Cell Count 11.3 10^3/uL (4.8-10.8)
[2024-01-15] MEDS: SYNTHROID 75 MCG PO (05:53)
[2024-01-15 06:01] LABS: Glucose - Point of Care 89 mg/dl (70-99)
[2024-01-15 06:23] LABS: Blood Urea Nitrogen 35 mg/dl (7-17); Calcium 8.5 mg/dl (8.4-10.2); Carbon Dioxide 24 mmol/L (22-30); Chloride 110 mmol/L (98-107); Estimated Creatinine Clearance 58 ml/min; Glucose 80 mg/dl (70-99); Potassium 3.9 mmol/L (3.5-5.1); Sodium 139 mmol/L (135-145); eGFR > 60.00
--- NOTE | 2024-01-15 07:46 | W.PN.HOSP.TC ---
Today's Communication/Plan
-
Will place consult for PMNR to see if we can get back to [facility] for rehab
Tolerating all oral meds now
Increase activity
Will add low-dose Lasix but believe most of her lower extremity and third spacing is from her nutritional needs that we will need to catch up
Assessment / Plan
Assessment / Plan
Physical exam:
General: Acutely ill
HEENT: Normocephalic, Atraumatic and Moist Mucous Membranes
Respiratory: Clear to Auscultation; Negative Wheezes, Rales or Rhonchi
Cardiac: Regular Rhythm and S1/S2
GI: Soft, Tender and Nondistended. Ileostomy in place.
Musculoskeletal: No Clubbing, No Cyanosis and No Edema
Neuro: Awake, Alert and Oriented
Psych: Calm
A/P:
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
-On Low Residue per colorectal surgery/general surgery./Now tolerating her oral medications/off TPN
-Reviewed repeated CT scan of the abdomen with contrast and CTA abdomen pelvis from 01/09 with no ischemic findings but nonspecific abnormalities.
-WBC 7.9 today
-Pain control
-On PPI
-Speech therapy on board. Swallowing and speech improved
Delirium seems to be slowly resolving
-On 01/09 nurse outreach case manager consulted and recommended transfer to ICU but patient and family declined. Currently stable-discussed with nurse outreach case manager.
-Discussed with family at bedside on 01/12 (I have discussed with daughter multiple times but today is her son at bedside).
-Discussed with RN.
Swallowing issues with intermittent confusion and speech difficulties likely Delirium but r/o Stroke:
-Informed by nurse that patient/family requested Speech Therapy on 01/11 therefore order placed (CRS had discussed but declined day prior).
-Neurology consulted and discussed with neuro.
-CT head unremarkable repeated on 2 separate occasions
-NIH score
-MRI brain discussed by neuro with patient and family and not interested.
-Repeated CT of the head today unremarkable for acute findings.
-ASA recommended to start if not Eliquis over the next 1-2 days if cleared by surgery.
Oral candidiasis:
-Started Nystatin
-EKG today NSR with QTc normal at 327
Hypernatremia
-Mild and trending down
-If worsen might need hypotonic fluids but reeval.
Hypotension:
-Resolved
-Likely multifactorial-->anemia, infection, volume depletion, possible relative adrenal insufficiency
-Continue fluids, blood transfusion, may consider stress dose steroids but continue current steroids to avoid interference with wound healing.
Anemia:
-Blood transfusion on 01/10
-Hemoglobin 6.6-->8.0 today
-Hematology eval and per hematology etiology in the acute blood loss or chronic illness or other. Workup in progress.
Acute kidney injury:
-Improved
-Cr 0.8 today
-Off IVF
Neck pain, likely musculoskeletal:
-Improved
-Local Bengay
-Tylenol as needed
-No need for further workup.
Recent enterococcal bacteremia in the setting of ischemic bowel:
-Continue IV meropenem/finished course of therapy
-Repeated latest blood cultures on 01/09 no growth to date.
Diarrhea:
-Improved
-C. difficile antigen positive and toxin negative likely colonizer
-Respiratory cultures negative except for Shiga toxin test pending.
Elevated troponin:
- Elevated troponin due to non-ischemic myocardial injury
-Echo no WMA and normal LV and RV fx
Paroxysmal atrial fibrillation and typical atrial flutter:
-On normal sinus rhythm
-Cardiology recommends to change IV Lopressor to p.o. Cardizem when able to tolerates oral
-Echocardiogram unremarkable on 01/08, EF 65 to 70% and normal right ventricular size and function, normal regional wall motion, just trace mitral regurgitation aortic regurgitation. No pericardial effusion.
-Anticoagulation when cleared by surgery
Volume overload in the setting of hypoalbuminemia:
-Third spacing and intravascular volume depletion.
-Lasix as needed.
Hypothyroidism:
-On IV Synthroid
-Change to oral if cont tolerating oral tomorrow
Polymyalgia rheumatica:
-Chronically on steroids
-On IV steroids--> currently on lowest dose possible to avoid adrenal insufficiency but no stress doses to avoid wound healing issues.
-Change to oral if cont tolerating oral tomorrow
Hyponatremia:
-Resolved
Hypokalemia:
-Replete and trend
DVT prophylaxis:
Heparin SQ
CODE STATUS:
DNR.
Total time spent on today's encounter was 52 minutes which included time spent in counseling the patient/family regarding diagnosis and treatment plan as listed above, goals of care, and symptom management. Case was discussed with nursing staff,
specialists, and care coordinators/case management. All labs and imaging personally reviewed by me. Remainder the time spent in detailed review of previous records, lab data, imaging, and other medical provider documentation.
Anticipated Discharge: Within 24 hours
Subjective/Interval History
-
Date of Service: January 15, 2024
Seems to have no loss of train of thought today and sentences are clear and fluent she did also improved in her ability to masticate and ingestion of food yesterday she tolerated the transition to oral medications well. Spoke to family at bedside
including her son who are anxious to pursue if Jody can take her back for further rehab
Objective Data
-
Labs:
Laboratory Results
01/15/24
04:45
WBC 11.3 H
Hgb 8.0 L
Hct 24.4 L
Plt Count 120 L
Sodium 139
Potassium 3.9
Chloride 110 H
Carbon Dioxide 24
BUN 35 H
Creatinine 0.6
Glucose 80
Calcium 8.5
Vital Signs:
Vital Signs
Temp Pulse Resp BP Pulse Ox
97.6 F 63 15 149/79 95
01/15/24 07:39 01/15/24 06:00 01/15/24 06:00 01/15/24 06:00 01/14/24 20:32
I&O
01/14/24 01/15/24 01/16/24
06:59 06:59 06:59
Intake Total 1134 / 1134 992 / 992
Output Total 1050 / 1050 750 / 750
Balance 84 / 84 242 / 242
Review of Systems
-
History Source: Patient
Constitutional: Reports No Symptoms
EENT: Reports No Symptoms Reported
Respiratory: Reports No Symptoms
Cardiac: Reports No Symptoms
Physical Exam
-
General: No Apparent Distress
HEENT: Normocephalic
Respiratory: Crackles (Scattered)
Cardiac: Regular Rhythm
GI: Soft, Nontender and Ostomy (Intact and functioning)
Musculoskeletal: Edema, Right Lower Extrem and Edema, Left Lower Extrem
Neuro: Awake, Alert and Oriented
Data Reviewed
-
Total Time Spent with Patient (in minutes): 45
Labs: Labs Reviewed by me
--- NOTE | 2024-01-15 07:58 | VATNOTE ---
Patient with PICC line in place for previous TPN and antibiotics. After discussion with PCN, noted there appears to be no further need for PICC line. Will discuss with PMD.
[2024-01-15] MEDS: PROTONIX 40 MG PO (08:02)
[2024-01-15] MEDS: MYCOSTATIN ORAL SUSPENSION 5 ML PO ×4 (08:02→19:27)
[2024-01-15] MEDS: NEURONTIN 300 MG PO (08:02)
[2024-01-15] MEDS: TYLENOL 1000 MG PO ×3 (08:02→23:24)
[2024-01-15] MEDS: BenGay-Like 1 APPLIC TOPICAL ×3 (08:02→19:27)
[2024-01-15] MEDS: CARDIZEM CD 120 MG PO (08:02)
[2024-01-15] MEDS: NSS (PRESERVATIVE FREE) IV ×2 (08:03→19:23)
[2024-01-15] MEDS: ELIQUIS 2.5 MG PO ×2 (08:03→19:27)
--- NOTE | 2024-01-15 10:38 | VATNOTE ---
Order noted to remove PICC line. Unsuccessful x2 attempts to place PIV. Patient refusing further attempts at this time. TT sent to PMD to inquire about need for IV access.
--- NOTE | 2024-01-15 11:37 | VATNOTE ---
IV access discussed with PMD--leave PICC in place until discharge tomorrow. PCN updated.
--- NOTE | 2024-01-15 13:57 | WOUNDNOTE ---
WON RN NOTE: Followed up today for pouch change and teaching, at bedside. Stoma pink and budded, peristomal skin intact. Changed pouch, patient assisted. Reviewed skin care, ADL's with a pouch and emptying. Called SPD for additional 2 1/4'
Holden 2 piece and Mariella seals. Answered all questions, confirmed secure start kit received. Will follow as needed.
--- NOTE | 2024-01-15 14:42 | W.PN.UPDATE ---
Update Note
Progress Note Update
Anemia stable - no evidence for iron/B12/folate deficiency, no hemolysis. Anemia likely from acute illness/chronic disease and blood loss.
Drop in platelets noted, may be medication related. Continue to follow CBC.
--- NOTE | 2024-01-15 14:46 | W.PN.ID1 ---
Date of Service
Date of Service: January 15, 2024
Today's Communication
Observe off antibiotics
Assessment / Plan
# Enteritis
# Leukocytosis
- slight bump noted on today's labs
- continue to monitor
- no current S/S of infectious process
# Drug allergies: doxycycline (hives), bactrim (rash)
# C. diff ag positive / toxin neg
# Recent Enterococcal bacteremia due to ischemic bowel
- Bacteremia cleared as of 12/27
- 01/09 blood cultures no growth to date
- completed course of abx.
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
- Conservative management per Colorectal
- off TPN.
#Anemia
#Other:
Renal insufficiency
Atrial fibrillation
HTN
Dyslipidemia
Sciatica
Lumbar spinal stenosis
PMR
Trigeminal neuralgia
����������������������������������������������������������
Chief Complaint
-: Leukocytosis
Subjective / Review of Systems
Review of Systems: No Fever and No Chills
Vital Signs / Physical Exam
Vital Signs
Vital Signs
Temp Pulse Resp BP Pulse Ox
97.4 F 63 15 149/79 95
01/15/24 14:26 01/15/24 06:00 01/15/24 06:00 01/15/24 06:00 01/14/24 20:32
Physical Exam
Constitutional: No Acute Distress, Comfortable, Chronically Ill, Non-toxic and Cachetic
Head: Normocephalic
Eyes: Pupils Equal, Pupils Round, No Conjunctival Hemorrhage and Sclera Anicteric
Cardiovascular: S1/S2; Negative S3/S4
Pulmonary: Clear and Non Labored
Gastrointestinal: Soft, Non Distended, Decreased Bowel Sounds and No Rebound
Neurological: Awake and Alert
Psychological: Calm
Objective Data
Lab Data
Lab Results
01/15/24 04:45
01/15/24 04:45
PT 14.7 Sec (11.4-14.6) H 01/04/24 18:30
INR 1.17 01/04/24 18:30
APTT 25.2 Sec (23.4-35.0) 01/04/24 18:30
Estimated Creat Clear 58 ml/min 01/15/24 04:45
Lactic Acid Cancelled 01/11/24 06:00
Total Bilirubin 1.5 mg/dl (0.2-1.3) H 01/14/24 03:53
AST 110 U/L (14-36) H 01/14/24 03:53
ALT 80 U/L (0-35) H 01/14/24 03:53
Alkaline Phosphatase 508 U/L (38-126) H 01/14/24 03:53
C-Reactive Protein 145.00 mg/L (0.0-10.00) H 01/07/24 17:23
Most recent labs reviewed.
Micro Results:
01/10/24 05:28 Blood Culture - Final
Blood/Venous No Growth - Final Report
01/10/24 04:55 Blood Culture - Final
Blood/Venous No Growth - Final Report
01/10/24 16:02 Salmonella/Shigella Culture - Final
Feces/Stool No Salmonella, Shigella, Aeromonas or Plesiomonas species
isolated.
Campylobacter Culture - Final
No Campylobacter species isolated.
Shiga Toxin Test - Final
No E. coli Shiga Toxin 1 or 2 detected.
01/06/24 10:46 Blood Culture - Final
Blood/Venous No Growth - Final Report
01/06/24 10:10 Blood Culture - Final
Blood/Venous No Growth - Final Report
01/10/24 05:05 C. difficile GDH Antigen & Toxins - Final
Feces/Stool C. difficile antigen positive, toxin negative.
Clostridium difficile present, but toxin not detected.
Patient may be a carrier, colonized with nontoxinogenic
strain or the level of toxin in sample is below detection
limits. This information should be used in conjunction with
the patient's clinical history.
01/10/24 04:55 Influenza Types A & B (TOMMY) - Final
Nasal Swab Negative for Influenza A & B, NAAT
Negative results must be combined with clinical observations
and patient history.
Nucleic Acid Amplification test (NAAT)performed on the
CellScope platform.
Imaging:
01/04/24 CXR: Nasogastric tube in place terminating within a moderate-sized hiatal hernia. Small bilateral pleural effusions with adjacent mild compressive subsegmental atelectasis in the lower lobes of both lungs.
01/04/24 CT a/p: There is a small bowel obstruction. The point of transition is in the left lower quadrant but difficult to isolate. There is thickening of the decompressed loops of small bowel extending to the ileostomy. There is fluid in the
abdomen and pelvis which may be related to recent surgery, versus ascites.
01/04/24 LE venous doppler: no DVT
--- NOTE | 2024-01-15 15:14 | CM ---
Patient from [facility] with recent colectomy with ileostomy with Dx Recurrent SBO, anemia, Swallowing issues with intermittent confusion and speech difficulties likely Delirium- improved per MD. TPN d/c'ed. Low residue diet. PT & OT
recommend skilled rehab.
Spoke with [facility]; they are unable to accept the patient back to [facility] - they declined her due to too high risk for readmission, however [facility] said yes, but family not agreeing to that.
Extensive discussions for discharge planning with family; met with patient & and spoke with daughters Theresa & Araceli several times by phone; informed them that [facility] declined and offered [facility]. Araceli agrees to [facility] but
Theresa says she does not want her mother to go there. Family inquiring about [facility] instead - agreed to make referral.
Phone calls x2 to [facility]; left messages requesting response to referral in [facility].
Daughter Theresa saying she doesn't feel her mother is ready for d/c to acute rehab tomorrow as her mother just came off TPN and is not eating well. She is asking if she could have a 'calorie count' done and nutritional supplements added. She is
asking if speech therapy can see her mother again for swallow check. Daughter also expressed concern that she was told patient had not been out of bed today & did not work with PT/OT today. Information forwarded to Dr Valero, nurse Portia,
hotel superintendent [facility]
Plan follow up with [facility] for acceptance.
--- NOTE | 2024-01-15 23:44 | PTCARENOTE ---
can not verify validity of vital signs before 184
[2024-01-16] VITALS: BP 149/77
[2024-01-16 04:00] VITALS: BP 125/83
--- NOTE | 2024-01-16 04:46 | DOWNTIME ---
There was a [employer] Downtime on 01/16/2024 from 0100 to 01/16/2024 at 0439. Downtime documentation of patient's care, including medication administrations, has been reconciled in the electronic record per guidelines. Refer to the
patient's paper chart under the miscellaneous tab to see printed paper medication records and downtime forms.
[2024-01-16 05:01] VITALS: BMI 22.5
[2024-01-16] MEDS: SYNTHROID 75 MCG PO (05:53)
--- NOTE | 2024-01-16 07:02 | W.PN.HOSP.TC ---
Today's Communication/Plan
-
Patient's family requested her calorie count this can be done here or at a rehab facility she is medically stable for discharge
I would remove her PICC line only when we have bed assignment at a rehab facility in place.
Will need conditioning and dietary measures to try and increase her strength and this should also help her peripheral edema from her protein malnutrition go forward
Assessment / Plan
Assessment / Plan
Physical exam:
General: Appears chronically ill but improving strength
HEENT: Normocephalic, Atraumatic and Moist Mucous Membranes
Respiratory: Clear to Auscultation; Negative Wheezes, Rales or Rhonchi
Cardiac: Regular Rhythm and S1/S2
GI: Soft, Tender and Nondistended. Ileostomy in place. And functioning
Musculoskeletal: No Clubbing, No Cyanosis and No Edema
Neuro: Awake, Alert and Oriented
Psych: Calm
A/P:
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
-On Low Residue per colorectal surgery/general surgery./Now tolerating her oral medications/off TPN
-Reviewed repeated CT scan of the abdomen with contrast and CTA abdomen pelvis from 01/09 with no ischemic findings but nonspecific abnormalities.
-WBC 7.9 today latest hemoglobin 8.0
-Pain control
-On PPI
-Speech therapy on board. Swallowing and speech improved
Delirium seems to be slowly resolving
-On 01/09 registered physical therapist consulted and recommended transfer to ICU but patient and family declined. Currently stable-discussed with registered physical therapist.
-Discussed with family at bedside on 01/12 (I have discussed with daughter multiple times but today is her son at bedside).
-Discussed with RN. And family at bedside yesterday and today
Swallowing issues with intermittent confusion and speech difficulties likely Delirium but r/o Stroke:
-Informed by nurse that patient/family requested Speech Therapy on 01/13 therefore order placed
-Neurology consulted and discussed with neuro.
-CT head unremarkable repeated on 2 separate occasions
-NIH score
-MRI brain discussed by neuro with patient and family and not interested.
-Repeated CT of the head today unremarkable for acute findings.
-Restarted Eliquis without issue
Oral candidiasis:
-Started Nystatin
-EKG today NSR with QTc normal at 327
Hypernatremia
-Mild and trending down
-If worsen might need hypotonic fluids but reeval.
Hypotension:
-Resolved
-Likely multifactorial-->anemia, infection, volume depletion, possible relative adrenal insufficiency
-Continue fluids, blood transfusion, may consider stress dose steroids but continue current steroids to avoid interference with wound healing.
Anemia:
-Blood transfusion on 01/10
-Hemoglobin 6.6-->8.0 today
-Hematology eval and per hematology etiology in the acute blood loss or chronic illness or other. Workup in progress.
Acute kidney injury:
-Improved
-Cr 0.8 today
-Off IVF
Neck pain, likely musculoskeletal:
-Improved
-Local Bengay
-Tylenol as needed
-No need for further workup.
Recent enterococcal bacteremia in the setting of ischemic bowel:
-Continue IV meropenem/finished course of therapy
-Repeated latest blood cultures on 01/09 no growth to date.
Diarrhea:
-Improved
-C. difficile antigen positive and toxin negative likely colonizer
-Respiratory cultures negative except for Shiga toxin test pending.
Elevated troponin:
- Elevated troponin due to non-ischemic myocardial injury
-Echo no WMA and normal LV and RV fx
Paroxysmal atrial fibrillation and typical atrial flutter:
-On normal sinus rhythm
-Cardiology recommends to change IV Lopressor to p.o. Cardizem when able to tolerates oral
-Echocardiogram unremarkable on 01/08, EF 65 to 70% and normal right ventricular size and function, normal regional wall motion, just trace mitral regurgitation aortic regurgitation. No pericardial effusion.
-Anticoagulation when cleared by surgery
Volume overload in the setting of hypoalbuminemia:
-Third spacing and intravascular volume depletion.
-Lasix as needed.
Hypothyroidism:
-On IV Synthroid
-Change to oral if cont tolerating oral tomorrow
Polymyalgia rheumatica:
-Chronically on steroids
-On IV steroids--> currently on lowest dose possible to avoid adrenal insufficiency but no stress doses to avoid wound healing issues.
-Change to oral if cont tolerating oral tomorrow
Hyponatremia:
-Resolved
Hypokalemia:
-Replete and trend
DVT prophylaxis:
Heparin SQ
CODE STATUS:
DNR.
Total time spent on today's encounter was 45 minutes which included time spent in counseling the patient/family regarding diagnosis and treatment plan as listed above, goals of care, and symptom management. Case was discussed with nursing staff,
specialists, and care coordinators/case management. All labs and imaging personally reviewed by me. Remainder the time spent in detailed review of previous records, lab data, imaging, and other medical provider documentation.
Anticipated Discharge: Today
Subjective/Interval History
-
Date of Service: January 16, 2024
Continued improvement in her mentation and cognition and orientation. Tolerated diet and medications by mouth yesterday trying to increase her activity discussed management and discharge plan with daughter at bedside today still concerned about
calorie intake and told her that should be addressed at a rehab facility going forward as this will take time.
Objective Data
-
Vital Signs:
Vital Signs
Temp Pulse Resp BP Pulse Ox
97.7 F 65 11 125/83 96
01/16/24 05:01 01/16/24 06:00 01/16/24 06:00 01/16/24 04:00 01/15/24 20:35
I&O
01/15/24 01/16/24 01/17/24
06:59 06:59 06:59
Intake Total 992 / 992 1160 / 1160
Output Total 750 / 750 500 / 500
Balance 242 / 242 660 / 660
Review of Systems
-
History Source: Patient and Family
Constitutional: Reports No Symptoms
EENT: Reports No Symptoms Reported
Respiratory: Reports No Symptoms
Cardiac: Reports No Symptoms
Physical Exam
-
General: Appears Chronically Ill
HEENT: Normocephalic
Respiratory: Clear to Auscultation
Cardiac: Regular Rhythm
GI: Soft and Ostomy
Psych: Calm and Intact Judgement/Insight
[2024-01-16 07:14] VITALS: BP 132/67
[2024-01-16 08:53] VITALS: BP 108/72
[2024-01-16 08:57] VITALS: BP 108/72
[2024-01-16] MEDS: TYLENOL 1000 MG PO ×2 (08:59→15:56)
[2024-01-16] MEDS: CARDIZEM CD 120 MG PO (08:59)
[2024-01-16] MEDS: PROTONIX 40 MG PO (08:59)
[2024-01-16] MEDS: LASIX 20 MG PO (08:59)
[2024-01-16] MEDS: ELIQUIS 2.5 MG PO (08:59)
[2024-01-16] MEDS: NEURONTIN 300 MG PO (08:59)
[2024-01-16] MEDS: BenGay-Like 1 APPLIC TOPICAL ×2 (09:00→15:58)
[2024-01-16] MEDS: NSS (PRESERVATIVE FREE) IV (09:00)
[2024-01-16] MEDS: MYCOSTATIN ORAL SUSPENSION 5 ML PO ×3 (09:00→15:56)
--- NOTE | 2024-01-16 09:50 | CON.MD ---
Consultation - Medical
-
Referring Provider: Kartik Love
Chief Complaint: Debility s/p colectomy and end ileostomy
History of Present Illness: 83 yo female with PMH of (afib on Eliquis, HTN, hyperlipidemia, sciatica, Lumbar Spinal stenosis, diverticulitis, hypothyroidism, elevated LFT's, PMR on chronic steroids, right femoral neck fracture s/p hemiarthroplasty)
presenting with no BM for around 8 days and abdominal pain. CT with large volume colonic stool with colitis without obstruction, free air or colonic pneumatosis. Decompressive colonoscopy was preformed by GI with evidence of ischemic bowel noted,
taken to the OR for management. S/P Exploratory laparotomy with total abdominal colectomy and end ileostomy. on 12/28/2023 then went into atrial fibrillation postoperatively. She was placed on a Cardizem drip but ventricular rates remain elevated.
She does take Eliquis but this has been held postoperatively. Her NG has been discontinued. Currently on liquids. Says she is tolerating it well. Denies any pain
Past Medical History: Afib on Eliquis, HTN, hyperlipidemia, sciatica, diverticulitis, elevated LFT's, PMR on chronic steroids, hypothyroidism,
Procedure History: Appendectomy, right hip hemiarthroplasty,
Family History: non contributory
Social History:
Functional Level Premorbidly: Independent with all activities
Functional Level Currently: Bed mobility - min assist, transfer-min assist, ambulation-4 feet to bedside-chair with rolling walker, toileting-dependent, lower extremity care-dependent,
Tobacco: Former smoker
Alcohol: occasional
Drug use: Denies
Lives with: spouse
24-hour assistance available: Yes
Number of floors: one story home
# steps to enter: 3
# steps to second floor: none
Potential First floor set up:yes
Driving: yes
Occupation: retired
Allergies:
Allergy/AdvReac Type Severity Reaction Status Date / Time
amlodipine Allergy Nausea Verified 01/07/24 21:43
doxycycline Allergy Hives Verified 12/24/23 06:30
hydrocodone [From Vicodin] Allergy Vomiting Verified 01/07/24 21:43
metoprolol [From Lopressor] Allergy Dizzy Verified 01/07/24 21:43
sulfamethoxazole Allergy Rash Verified 12/24/23 06:30
[From Bactrim]
trimethoprim [From Bactrim] Allergy Rash Verified 12/24/23 06:30
Review of Systems:
Constitutional: (x) abNormal _fatigue
Eye: (x) Normal _
Ear/Nose/Throat: (x) Normal _
Respiratory: (x) Normal _
Cardiovascular: (x) Normal _
Gastrointestinal: (x) s/p exploratory colectomy and end ileostomy
Genitourinary: (x) Normal _
Musculoskeletal: (x) Normal _
Integumentary: (x) abNormal _swelling in both legs
Neurologic: (x) Normal _
Psychiatric: (x) Normal _
Endocrine: (x) Normal _
Hematologic/Lymphatic: (x) Normal _
Allergic/Immunologic: (x) Normal _
Medications:
Active Current Visit Medication List
Category Date Time Status
0.9% Sodium Chloride [Nss (Preservative Free)] Med 01/04/24 20:00 Active
10 ml IV BID
Acetaminophen [Tylenol] Med 01/14/24 16:00 Active
1,000 mg PO Q8H
Apixaban [Eliquis] Med 01/14/24 20:00 Active
2.5 mg PO BID
Benzocaine/Menthol [Anesthetic Lozenge] Med 01/07/24 12:46 Active
1 lozenge PO Q4HPRN PRN
Dextrose 50%-Water [Dextrose 50% Syringe] Med 01/08/24 12:00 Active
12.5 grams IV [id number] PRN
Diltiazem Extended Release [Cardizem Cd] Med 01/15/24 08:00 Active
120 mg PO DAILY
Flush (0.9% Sodium Chloride) [Flush (Nss)] Med 01/05/24 07:00 Active
See Dose Instructions IV PER PROTOCOL
Furosemide [Lasix] Med 01/16/24 08:00 Active
20 mg PO DAILY
Gabapentin [Neurontin] Med 01/15/24 08:00 Active
300 mg PO DAILY
Glucagon [GlucaGen] Med 01/08/24 12:00 Active
1 mg IM PRN PRN
Levothyroxine [Synthroid] Med 01/15/24 06:00 Active
75 mcg PO DAILY@0600
Methylsalicylate/Menthol [BenGay-Like] Med 01/10/24 08:35 Active
1 applic TOPICAL TID
Nystatin Suspension [Mycostatin Oral Suspension] Med 01/12/24 18:00 Active
5 ml PO QID
Ondansetron Injectable [Zofran] Med 01/07/24 08:31 Active
4 mg IV Q6HPRN PRN
Pantoprazole [Protonix] Med 01/15/24 08:00 Active
40 mg PO DAILY
Phenol 1.4% [place] [Chloraseptic/Sore Throat [place]] Med 01/04/24 19:39 Active
See Dose Instructions PO Q2HPRN PRN
Prednisone [Deltasone] Med 01/14/24 16:00 Active
10 mg PO Q48H
Vitals:
Temp Pulse Resp BP Pulse Ox
96.1 F L 66 16 132/67 96
01/16/24 07:00 01/16/24 07:14 01/16/24 07:14 01/16/24 07:14 01/15/24 20:35
Height 5 ft 3 in
Actual Weight 57.6 kg
Body Mass Index (BMI) 22.5
Physical Exam:
General Appearance/Observation: Well-developed, well-nourished female in no apparent distress.
Pain/Comfort Assessment: Denies
Mood/Affect: Appropriate
Integumentary/Operative Site: Minor bruises both legs
�� Pressure Ulcer Evaluation: absent over heels.
��
Eyes: Conjunctiva/Lids: normal ��� Pupils: pupils equal round and reactive to light and Accommodation
Ears/Nose/Throat: oral mucosa moist,� throat clear.������������ Lips/Teeth/Gums: normal
Neck: No muscle spasm or tenderness
Cardiovascular: Heart: regular, no murmur
Pulses: dorsalis pedis 2+ bilaterally
Respiratory: Respiratory Effort/Chest Expansion: normal ������ Auscultation: Clear to auscultation bilaterally
Gastrointestinal: abdomen not tender, no distension, diminished abdominal bowel sounds, ileostomy
Genitourinary: No Keith
Extremities: Edema: Moderate bilateral lower extremity pitting edema, bilateral pitting elbow edema. No calf tenderness Cyanosis: None Trophic changes: None
Neurology Exam:
Orientation: Alert, Oriented to person, place, time
Memory: Intact for recent medical concerns
Comprehension: Intact for basic information
Two step command: Intact for basic commands
Cranial Nerves:
�� CNII: Pupillary light reflex: Intact��� Visual Field: Intact
�� CN III, IV, : Extraocular muscles: Intact
�� CN V: Facial Sensation at Forehead: Intact, Maxilla: Intact, Mandible: Intact
�� CN VII: Facial movement: Right facial movement slightly decreased compared to left. Patient notes this is baseline
�� CN VIII: Hearing: Normal
�� CN IX/X: Speech & swallow: Normal, Position of Uvula: Midline
�� CN XI: Shoulder shrug: Symmetric
�� CN XII: Tongue protrusion: Midline
Sensory:
�� Light touch: Intact in bilateral upper and lower extremities
��
Reflexes:
�� Biceps: 2 bilaterally
�� Brachioradialis: 2 bilaterally
�� Triceps: 2 bilaterally
�� Patellar: 0 bilaterally
�� Achilles: 0 bilaterally
�� Babinski: Absent bilaterally
�� Clonus: None
�� Wilner: Negative bilaterally
Cerebellar: Dysmetria/Ataxia: None
Musculoskeletal: Motor: (Manual muscle scale 0-5)
Muscle SA EF WE EE FF FA HF KE DF EHL PF
Right� 2+ 4 4 4 4 4 2 3 4 4 4
Left 2+ 4 4 4 4 4 2 3 4 4 4
has some generalized loss of muscle tone diffusely.
Tone: Normal in all extremities
Range of Motion: Passively within normal limits in all extremities, deferred lower extremities
Lab Results
Laboratory Data
01/15/24 04:45
01/15/24 04:45
PT 14.7 Sec (11.4-14.6) H 01/04/24 18:30
INR 1.17 01/04/24 18:30
APTT 25.2 Sec (23.4-35.0) 01/04/24 18:30
Total Bilirubin 1.5 mg/dl (0.2-1.3) H 01/14/24 03:53
AST 110 U/L (14-36) H 01/14/24 03:53
ALT 80 U/L (0-35) H 01/14/24 03:53
Alkaline Phosphatase 508 U/L (38-126) H 01/14/24 03:53
Total Protein 4.4 g/dl (6.3-8.2) L 01/14/24 03:53
Albumin 2.0 g/dl (3.5-5.0) L 01/14/24 03:53
Diagnostic Results: as per HPI
Assessment 83 y/o [facility] (afib on Eliquis, HTN, hyperlipidemia, sciatica, Lumbar Spinal stenosis, diverticulitis, hypothyroidism, elevated LFT's, PMR on chronic steroids, right femoral neck fracture s/p hemiarthroplasty) with enterococcal bacteremia,
ischemic bowel S/P Exploratory laparotomy with total abdominal colectomy and end ileostomy 12/28/2023, postoperative atrial fibrillation complicated by recurrent small bowel obstruction requiring n.p.o. and TPN now tolerating diet and delirium which
is slowly resolving and fluid overload with ADL and ambulatory dysfunction
Plan
PT/OT to increase independence with ADLs, improve balance, coordination, endurance, strength, mobility, community reintegration, decreased burden of care on others and family education.
Debility s/p colectomy and end Ileostomy: Completed course of antibiotics. Had bowel obstruction which required TPN but now tolerating diet. Routine ostomy care.
HTN: Diltiazem, Lasix, monitor closely
HLD: not on med.
Atrial fibrillation:� Diltiazem and Eliquis��������������������������������������
Hypothyroidism: levothyroxine 75mcg
Polymyalgia rheumatica: prednisone
Bilateral lower extremity edema: Volume overloaded. Lasix 20 mg daily currently, try to avoid if possible with elevated BUN. Elevate legs, suggest thigh-high TEDS instead of Tubigrip. Increased fluid will cause more force requirement to move lower
extremities which requires more strength and increases fatigue.
Macrocytic anemia: Likely multifactorial but mostly postoperative.� B12 and folate normal. Hgb 8. Continue to monitor.
Psych: Psychology consult.� Monitor mood, medications as needed.
Skin: monitor for pressure sores/rashes/lesions.
Pain: acetaminophen and gabapentin 300 mg daily
FEN: Bun 35, creatinine 0.6 -on Lasix to help with lower extremity swelling.
Bowel: colostomy
Bladder: Time void, PVRs, PRN straight cath.
GI Prophylaxis: Pantoprazole Will need to be converted to PO when able
DVT Prophylaxis: Mechanical and Eliquis
Pulmonary: Incentive spirometry
Safety: Continue to reinforce assistance with all transfers.
Code Status:� Full code
Dispo (date/plan/equipment needs): Home with family care.� Social history reviewed.
Functional and Medical Goals: Modified Independent with ADL�s, ambulation, transfers
A total of 60 minutes were spent with the patient preparing for the evaluation, obtaining history, performing examination and evaluation, counseling, data review, case management, care coordination, weight recorder, and EMR documentation.
Summary of recommendations:
- Discharge Destination: Patient s/p colectomy and end ileostomy with debility, Afib with rapid heart rate and some acute cognition changes with current status of ambulation of 4 feet to bedside chair with rolling walker, toileting dependent, lower
extremities care dependent, transfers at min assist, would benefit from acute inpatient rehabilitation for PT/OT to increase independence with ADLs, improve balance, coordination, endurance, strength, mobility, and community reintegration.
Debility s/p colectomy and end Ileostomy: Completed course of antibiotics. Had bowel obstruction which required TPN but now tolerating diet. Routine ostomy care.
HTN: Diltiazem, Lasix, monitor closely
HLD: not on med.
Atrial fibrillation:� Diltiazem and Eliquis��������������������������������������
Hypothyroidism: levothyroxine 75mcg
Polymyalgia rheumatica: prednisone
Bilateral lower extremity edema: Volume overloaded. Lasix 20 mg daily currently, try to avoid if possible with elevated BUN. Elevate legs, suggest thigh-high TEDS instead of Tubigrip. Increased fluid will cause more force requirement to move lower
extremities which requires more strength and increases fatigue.
Macrocytic anemia: Likely multifactorial but mostly postoperative.� B12 and folate normal. Hgb 8. Continue to monitor.
Thank you for allowing me to care for your patient. Please contact me with any questions or concerns.
--- NOTE | 2024-01-16 09:57 | W.PN.ID1 ---
Date of Service
Date of Service: January 16, 2024
Today's Communication
Monitor off antibiotics
Assessment / Plan
# Enteritis
- appears clinically improved.
# Leukocytosis
- slight bump noted on yesterday's labs
- continue to monitor
- no current S/S of infectious process
# Drug allergies: doxycycline (hives), bactrim (rash)
# C. diff ag positive / toxin neg
# Recent Enterococcal bacteremia due to ischemic bowel
- Bacteremia cleared as of 12/27
- 01/09 blood cultures no growth to date
- completed course of abx.
--> Monitor off abx.
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
- Conservative management per Colorectal
- off TPN.
#Anemia
#Other:
Renal insufficiency
Atrial fibrillation
HTN
Dyslipidemia
Sciatica
Lumbar spinal stenosis
PMR
Trigeminal neuralgia
����������������������������������������������������������
Chief Complaint
-: Leukocytosis
Subjective / Review of Systems
Review of Systems: No Fever, No Chills and No Abdominal Pain
Vital Signs / Physical Exam
Vital Signs
Vital Signs
Temp Pulse Resp BP Pulse Ox
96.1 F L 66 16 132/67 96
01/16/24 07:00 01/16/24 07:14 01/16/24 07:14 01/16/24 07:14 01/15/24 20:35
Physical Exam
Constitutional: No Acute Distress, Comfortable, Chronically Ill, Non-toxic and Cachetic
Head: Normocephalic
Eyes: Sclera Anicteric
Pulmonary: Non Labored
Gastrointestinal: Non Distended
Extremities: Edema; Negative Cyanosis or Erythema
Neurological: Awake and Alert
Psychological: Calm
Objective Data
Lab Data
Lab Results
01/15/24 04:45
01/15/24 04:45
PT 14.7 Sec (11.4-14.6) H 01/04/24 18:30
INR 1.17 01/04/24 18:30
APTT 25.2 Sec (23.4-35.0) 01/04/24 18:30
Estimated Creat Clear 58 ml/min 01/15/24 04:45
Lactic Acid Cancelled 01/11/24 06:00
Total Bilirubin 1.5 mg/dl (0.2-1.3) H 01/14/24 03:53
AST 110 U/L (14-36) H 01/14/24 03:53
ALT 80 U/L (0-35) H 01/14/24 03:53
Alkaline Phosphatase 508 U/L (38-126) H 01/14/24 03:53
C-Reactive Protein 145.00 mg/L (0.0-10.00) H 01/07/24 17:23
Most recent labs reviewed.
Micro Results:
01/10/24 05:28 Blood Culture - Final
Blood/Venous No Growth - Final Report
01/10/24 04:55 Blood Culture - Final
Blood/Venous No Growth - Final Report
01/10/24 16:02 Salmonella/Shigella Culture - Final
Feces/Stool No Salmonella, Shigella, Aeromonas or Plesiomonas species
isolated.
Campylobacter Culture - Final
No Campylobacter species isolated.
Shiga Toxin Test - Final
No E. coli Shiga Toxin 1 or 2 detected.
01/06/24 10:46 Blood Culture - Final
Blood/Venous No Growth - Final Report
01/06/24 10:10 Blood Culture - Final
Blood/Venous No Growth - Final Report
01/10/24 05:05 C. difficile GDH Antigen & Toxins - Final
Feces/Stool C. difficile antigen positive, toxin negative.
Clostridium difficile present, but toxin not detected.
Patient may be a carrier, colonized with nontoxinogenic
strain or the level of toxin in sample is below detection
limits. This information should be used in conjunction with
the patient's clinical history.
01/10/24 04:55 Influenza Types A & B (TOMMY) - Final
Nasal Swab Negative for Influenza A & B, NAAT
Negative results must be combined with clinical observations
and patient history.
Nucleic Acid Amplification test (NAAT)performed on the
CRAVE platform.
Imaging:
01/04/24 CXR: Nasogastric tube in place terminating within a moderate-sized hiatal hernia. Small bilateral pleural effusions with adjacent mild compressive subsegmental atelectasis in the lower lobes of both lungs.
01/04/24 CT a/p: There is a small bowel obstruction. The point of transition is in the left lower quadrant but difficult to isolate. There is thickening of the decompressed loops of small bowel extending to the ileostomy. There is fluid in the
abdomen and pelvis which may be related to recent surgery, versus ascites.
01/04/24 LE venous doppler: no DVT
--- NOTE | 2024-01-16 13:44 | W.DCSUMMARY ---
Discharge Summary
Discharge Data
Date of Admission: 01/04/24
Date of Discharge: 01/16/24
-
Pending Results: No
Hospital Course
Patient was readmitted on 03 January [facility] where she developed intractable nausea vomiting increasing abdominal distention prompting evaluation for possible recurrence of her recent small bowel obstruction
she had suffered a recent ischemic bowel secondary to severe constipation and status post colon resection with ileostomy placement on 27 December 2023 she was due to continue a course through 10 January to treat enterococcal bacteremia as a result of her
illness but presented back here on the date of this admission with an apparent recurrence of her small bowel obstruction she was seen again by multiple consultants including the colorectal service infectious disease service.
Subsequent CT of the abdomen pelvis showed a recurrence of obstruction with transition noted to left lower quadrant with thickening of decompressed loops of the small bowel extending to the ileostomy with some bilateral pleural effusion presumed in
relation to compressive atelectasis.
She was this time treated nonoperatively with gradual resolution and return for bowel function but did require continued placement of the TPN due to her generalized deconditioning and poor nutritional status given the extent of her illness and
n.p.o. status on prior admission. She was eventually able to discontinue TPN as of 13 January and has been tolerating a return to oral feedings after some concern with underlying dysphagia and also episodes of delirium that prompted further
evaluation by the neurology service who felt this would be self-limited as long as her nutritional status continue to improve and ability to increase her functional status as there is no evident discernible acute neurologic deficit and family
nonetheless refused further imaging with an MRI but CT scan did not show any acute event on 2 separate occasions. She was finally able to go back to her oral medications on 14 January with tolerance gradually increasing her activity and colorectal
service surgery signed off on the deemed stable for discharge from neurostanoint given concerns with continued deconditioning and the need for nutritional support it is felt that the patient should be reevaluated by the acute rehab service
and she has been accepted back at [facility] on this date 15 January she has completed her course of antibiotic therapy from Unasyn to meropenem and infectious disease services signed off with subsequent blood cultures noting no growth since 27 December.
She has remained in a sinus rhythm and will continue on Eliquis along with diltiazem 120 mg CD for rate control we have placed her back on her usual dosage of prednisone every 48 hours we have also placed compression stockings for her lower
extremity edema which is in relation to third spacing from her protein deficits at this point and no evidence of any fluid overload or congestive heart failure. Also point of reference patient has documented allergies to doxycycline which gives her
hives and also Bactrim which gives her a rash she is also intolerant to all narcotics and we have avoided that in her pain management and only have given her acetaminophen as needed. She also tested positive for C. difficile antigen but toxin was
negative./
Discharge Plan
-
Patient Disposition: Acute Rehab Facility
Discharge Diagnosis/Procedures: Recurrent small bowel obstruction/recent ischemic bowel secondary to severe constipation status post colon resection with ileostomy placement December 27, 2023
Recent enterococcal bacteremia/bacteremia cleared December 27
C. difficile positive toxin negative
Paroxysmal atrial fibrillation/presently sinus rhythm
Diet: Low Residue
Additional Diets: Supply protein supplements as tolerated
Activity: As tolerated
Driving Restrictions: No driving
Activity Restrictions/Additional Instructions:
Ileostomy supplies: wafer # [id number], Mariella seal and Holden pouch # [id number]. Change 2 times a week and as needed for leakage. Can try Holden 2 1/4 inch high output pouch # [id number] instead of Holden pouch # [id number].
Call supply [facility] (list in folder provided) for monthly Ostomy supplies after discharge (ask VN to order supplies while on service).
Follow up with surgeon.
Call [facility] RN nurse for ostomy pouching concerns or leakage problems [phone] or [phone] or [phone].
Referrals:
Austin López MD [Active] - in three to four weeks
David Valdez MD [Family Provider] - in two weeks
Prescriptions:
New
nystatin 100,000 unit/mL Suspension
5 ml PO QID Qty: 60 0RF
furosemide 20 mg Tablet
20 mg PO DAILY Qty: 20 0RF
Continued
prednisone 20 mg Tablet
10 mg PO Q48H
Hold Instructions: Resume on 01/06/24. Can resume every 48 hour dosing in 3 days
Rx Instructions:
Resume on 01/06/24. Can resume every 48 hour dosing in 3 days
levothyroxine 75 MCG tablet
75 mcg PO DAILY AT 0700
Eliquis 2.5 mg Tablet
2.5 mg PO BID
pantoprazole 40 mg Tablet,Delayed Release (Dr/Ec)
40 mg PO DAILY Qty: 14 0RF
ondansetron HCl 4 mg Tablet
4 mg PO Q8H PRN (Reason: NAUSEA/VOMITING)
therapeutic multivitamin Tablet
1 tab PO DAILY
acetaminophen [Tylenol Extra Strength] 500 mg Tablet
1,000 mg PO Q8H
gabapentin 300 MG capsule
300 mg PO DAILY Qty: 30 0RF
diltiazem HCl 120 MG capsule,extended release 24hr
120 mg PO DAILY Qty: 30 0RF
multivitamin with folic acid [Tab-A-Taz] 1 TABLET tablet
1 tab PO DAILY
Rx Instructions:
400 mcg tab
Discontinued
prednisone 10 mg Tablet
10 mg PO QPM Qty: 14 0RF
nystatin 100,000 unit/mL Suspension
5 ml PO QID Qty: 60 0RF
potassium, sodium phosphates [Phosphorous Supplement] 280-160-250 mg Powder In Packet
1 packet PO DAILY Qty: 5 0RF
Ampicillin/Sulbactam 3 G [Unasyn] 3 GM
0.9% Sodium Chloride 100 ml [Nss] 100 ML
240 mls/hr IV Q6H
Reason for use: Infection
Ordered By: Kartik Valero MD
Last Taken: 01/04/24 08:16
Patient Comments:
Continued through January 10
Rx Instructions:
continued through January 10
Discharge Date and Time
Print Language: ZIMBABWEAN
--- NOTE | 2024-01-16 13:55 | W.DS.TRANS ---
DC Summary - Financial Representative
-
Discharge Instructions:
Sleep Apnea Risk Low
Discharge Diagnosis/Procedures Recurrent small bowel obstruction/recent
ischemic bowel secondary to severe constipation
status post colon resection with ileostomy
placement December 27, 2023
Recent enterococcal bacteremia/bacteremia
cleared December 27
C. difficile positive toxin negative
Paroxysmal atrial fibrillation/presently sinus
rhythm
Diet Low Residue
Additional Diets Supply protein supplements as tolerated
Activity As tolerated
Driving Restrictions No driving
Instructions:
Stand-Alone Forms:
Changes to Home Medications: No
Discharge Medications:
DC Medications w/original date entered in [facility]
diltiazem HCl 120 mg capsule,extended release 24 hr 120 mg PO DAILY #30 caps 03/24/21
gabapentin 300 mg capsule 300 mg PO DAILY #30 caps 03/24/21
apixaban 2.5 mg tablet (Eliquis) 2.5 mg PO BID Blood Clot Prevention/Tx 12/26/23
levothyroxine 75 mcg tablet 75 mcg PO DAILY AT 0700 Thyroid 12/26/23
prednisone 20 mg tablet 10 mg PO Q48H Anti-Inflammatory 12/26/23
multivitamin with folic acid 400 mcg tablet (Tab-A-Taz) 1 tab PO DAILY Supplement 01/03/24
pantoprazole 40 mg tablet,delayed release 40 mg PO DAILY #14 tabs 01/03/24
acetaminophen 500 mg tablet (Tylenol Extra Strength) 1,000 mg PO Q8H mild pain 01/04/24
ondansetron HCl 4 mg tablet 4 mg PO Q8H PRN NAUSEA/VOMITING 01/04/24
therapeutic multivitamin 1 tab PO DAILY Supplement 01/04/24
furosemide 20 mg tablet 20 mg PO DAILY Heart Failure #20 tabs 01/16/24
nystatin 100,000 unit/mL oral suspension 5 ml PO QID Infection #60 mL 01/16/24
Home Medication Changes
furosemide 20 mg tablet 20 mg PO DAILY Heart Failure #20 tabs 01/16/24
nystatin 100,000 unit/mL oral suspension 5 ml PO QID Infection #60 mL 01/16/24
Pending Results: No
Total time spent discharging patient (in min): 45
--- NOTE | 2024-01-16 14:08 | CM ---
Addendum entered by Laura Ortega RN 01/16/24 14:15:
IMM completed yesterday with patient, who could not remember her last name and said she couldn't remember how to write her last name.
Original Note:
Patient from [facility] with recent colectomy with ileostomy with Dx Recurrent SBO, anemia, Swallowing issues with intermittent confusion and speech difficulties likely Delirium- improved per MD. Calorie Count. PT & OT recommend acute rehab
vs SNF. Physiatry Eval ordered.
Spoke with [facility]; they have no available beds until possibly next week.
Spoke with [facility] , [facility]; a bed became available and they are able to accept the patient back today to [facility], The patient can arrive around 5pm. The for report [phone], fax [phone].
Met with patient and , and spoke with daughter Theresa; all agree to [facility] today.
Plan [facility] today.
[2024-01-16 15:00] VITALS: BP 110/80
[2024-01-16] MEDS: DELTASONE 10 MG PO (15:56)
--- NOTE | 2024-02-01 14:45 | WOUNDNOTE ---
ABDOMEN (seen in [facility] room 308 per request of Harsha SAPP and Harsha Wong ).
--- NOTE | 2024-02-01 16:00 | WOUNDNOTE ---
[facility] RN note: Patient Diya Kohli seen in [facility] room 308 for leaking pouch problem and peristomal redness per [facility] SENAIT Barrios and [facility] PAULETTE Wong's request.� I do not have access to [facility]'s electronic chart but it was a � hr visit. I reviewed the
suggested appliance change with her [facility] nurse Sophie. Stoma 1 inch x 1 1/8 inch, budded with peristoma skin wrinkles. Ileostomy applianced changed with patient observing, applied Cavilon Advance skin prep to peristomal redness, Quincy wafer #
[id number], Mariella seal and Holden high output pouch # [id number] along with ostomy belt #[id number]. t/c Spoke with daughter and gave update.
Ileostomy pouch changes: Clean with soap and water (do not use a moisturizing soap), rinse with water, pat dry, apply light dusting of 2% OTC Miconazole powder to red rash like skin followed by no sting barrier wipe (allow to dry), apply Holden
cut to fit soft convex wafer #[id number] with an Mariella seal and Holden high output pouch #[id number] with Quincy ostomy belt #7300. Change 2 times a week and as needed for leakage. Ostomy supplies in room (she also has several Coloplast convex 2 piece
appliances) and given to patient's . Also gave an overnight bedside Quincy bag #[id number] if needed at home overnight and instructed how to connect and disconnect bedside drainage bag #[id number].
[place] texted Eufemia Sen MARY and PAULETTE Arriola ostomy supply update.
== END 2024-01-16 17:39 | DRG 388 ==
LOC: IMU 15:54
PROVIDERS: Hospitalist; Internal Medicine Cardiovascular Disease; Nurse Practitioner Family; Physician Assistant; Physician Assistant Medical; Radiology Diagnostic Radiology; Registered Nurse; ADMITTING PHYSICIAN Internal Medicine; CONSULT PHYSICIAN Internal Medicine; CONSULT PHYSICIAN Internal Medicine Critical Care Medicine; CONSULT PHYSICIAN Internal Medicine Hematology & Oncology; CONSULT PHYSICIAN Internal Medicine Infectious Disease; CONSULT PHYSICIAN Nuclear Medicine Nuclear Cardiology; CONSULT PHYSICIAN Physical Medicine & Rehabilitation; CONSULT PHYSICIAN Student in an Organized Health Care Education/Training Program; EMERGENCY PHYSICIAN Emergency Medicine; FAMILY PHYSICIAN Family Medicine; OTHER PHYSICIAN Surgery
PROC: 0D9670Z Drainage of Stomach with Drainage Device, Via Natural or Artificial Opening (ICD-10-PCS; 2024-01-04)
PROC: 3E0436Z Introduction of Nutritional Substance into Central Vein, Percutaneous Approach (ICD-10-PCS; 2024-01-07)
PROC: 02HV33Z Insertion of Infusion Device into Superior Vena Cava, Percutaneous Approach (ICD-10-PCS; 2024-01-07)
PROC: 30243N1 Transfusion of Nonautologous Red Blood Cells into Central Vein, Percutaneous Approach (ICD-10-PCS; 2024-01-11)
DX: K91.31 Postprocedural partial intestinal obstruction (principal); G92.8 Other toxic encephalopathy; J90 Pleural effusion, not elsewhere classified; J98.11 Atelectasis; N17.9 Acute kidney failure, unspecified; R78.81 Bacteremia; E22.2 Syndrome of inappropriate secretion of antidiuretic hormone; I48.3 Typical atrial flutter; I5A Non-ischemic myocardial injury (non-traumatic); D62 Acute posthemorrhagic anemia; A04.72 Enterocolitis due to Clostridium difficile, not specified as recurrent; B37.0 Candidal stomatitis; E87.0 Hyperosmolality and hypernatremia; F05 Delirium due to known physiological condition; E46 Unspecified protein-calorie malnutrition; Y83.8 Other surgical procedures as the cause of abnormal reaction of the patient, or of later complication, without mention of misadventure at the time of the procedure; Y92.538 Other ambulatory health services establishments as the place of occurrence of the external cause; R11.2 Nausea with vomiting, unspecified; R09.02 Hypoxemia; E03.9 Hypothyroidism, unspecified; I10 Essential (primary) hypertension; I48.0 Paroxysmal atrial fibrillation; E78.00 Pure hypercholesterolemia, unspecified; G50.0 Trigeminal neuralgia; M48.061 Spinal stenosis, lumbar region without neurogenic claudication; M79.7 Fibromyalgia; K44.9 Diaphragmatic hernia without obstruction or gangrene; B95.2 Enterococcus as the cause of diseases classified elsewhere; D72.829 Elevated white blood cell count, unspecified; M35.3 Polymyalgia rheumatica; M54.30 Sciatica, unspecified side; I95.9 Hypotension, unspecified; E88.09 Other disorders of plasma-protein metabolism, not elsewhere classified; M19.90 Unspecified osteoarthritis, unspecified site; E87.6 Hypokalemia; E11.649 Type 2 diabetes mellitus with hypoglycemia without coma; R07.89 Other chest pain; K21.9 Gastro-esophageal reflux disease without esophagitis; R13.12 Dysphagia, oropharyngeal phase; M54.2 Cervicalgia; I49.5 Sick sinus syndrome; M79.89 Other specified soft tissue disorders; Z93.3 Colostomy status; Z87.891 Personal history of nicotine dependence; Z79.52 Long term (current) use of systemic steroids; Z79.01 Long term (current) use of anticoagulants; Z79.890 Hormone replacement therapy; Z88.1 Allergy status to other antibiotic agents; Z88.2 Allergy status to sulfonamides; Z88.8 Allergy status to other drugs, medicaments and biological substances; Z90.49 Acquired absence of other specified parts of digestive tract; Z11.52 Encounter for screening for COVID-19; Z66 Do not resuscitate; Z72.820 Sleep deprivation; Z68.23 Body mass index [BMI] 23.0-23.9, adult
CPT/HCPCS: 93308; 36600; 43752; 70450; 71045; 74022; 74174; 74177; 80048; 80053; 81003; 81015; 82040; 82607; 82728; 82746; 82805; 82962; 83010; 83540; 83550; 83605; 83615; 83735; 83880; 84100; 84134; 84145; 84478; 84484; 85025; 85027; 85045; 85610; 85730; 86140; 86850; 86880; 86900; 86901; 86920; 87040; 87045; 87046; 87077; 87324; 87427; 87449; 87502; 87811; 92526; 92610; 93005; 93321; 93325; 93970; 96374; 97110; 97116; 97163; 97167; 97530; 97535; 99285; P9016; P9045; Q9967

== ENCOUNTER 2024-02-03 20:51 | Inpatient (IN) | payer MEDICARE, BC, SELFPAY ==
[2024-02-03 17:04] VITALS: BMI 18.8
[2024-02-03 17:11] VITALS: BP 100/63
--- NOTE | 2024-02-03 17:37 | ED.GENMED ---
History of Present Illness
General
Chief Complaint: Abnormal Lab Value
Source: patient
Time Seen by Provider: 02/03/24 17:04
Travel History
Have you had any contact with someone who has COVID-19?: No
Do you have any symptoms of coronavirus? Fever > 100 degrees, chills, cough, shortness of breath, sore throat, loss of taste or smell, muscle aches, or headache?: No
History of Present Illness
History of Present Illness:
83-year-old female who [facility] due [facility] concerns about hyponatremia. The patient has been seen by nephrology who recommended admission for 3% saline. The patient recently did have a colon resection. She admits she has not had much
of an appetite. No fevers. No vomiting.
Past History
Past History
ED Past Medical History: Arrthythmia (afib), HTN, Hypothyroidism and Other (Bowel resection, mesenteric ischemia); Negative CVA
ED Past Surgical History: Bowel resection
Social History
Tobacco: Former smoker
Alcohol: Occasional
Drug: None
Personal:
Living: with family
Employment: Retired
Family History
Family History: Other (nonContributory)
Phy Exam
Physical Exam
Physical Exam:
CONSTITUTIONAL Patient alert and oriented to person, place and time. Well-appearing. Vital signs reviewed.
HEAD atraumatic, normocephalic.
EYES eyelids normal to inspection, Extraocular muscles intact, Conjunctiva normal, Sclera normal.
NECK normal range of motion, Trachea midline, no jugular venous distention.
RESPIRATORY CHEST No respiratory distress noted, Chest expansion equal
ABDOMEN abdomen nontender, Bowel sounds normal. No distention. Ostomy in place
UPPER EXTREMITY range of motion normal, Motor strength normal, no cyanosis, no edema.
LOWER EXTREMITY range of motion normal, Motor strength normal, no cyanosis, no edema.
NEURO Speech normal, No focal motor deficits, Cathy coma scale 15, Memory normal, Cranial Nerves intact to screening exam.
SKIN skin warm, dry, and normal in color.
PSYCHIATRIC patient oriented to person place and time, Normal affect.
Course
Orders/Labs/Results
Orders:
Orders
02/03/24 Dinner
Cholesterol Lowering
At Your Request: Limited Participation
Fluid Restriction: 1200 mL/day (40 oz)
Cholesterol Lowering: Sodium, 2 Gram
02/03/24 17:55
Complete Blood Count/With Diff Urgent
Comprehensive Metabolic Panel Urgent
02/03/24 19:48
Osmolality, Random Urine Urgent
Date Specimen was Collected: 02/03/24
Time Specimen was Collected: 18:32
Urinalysis Reflex To Culture Urgent
Date Specimen was Collected: 02/03/24
Time Specimen was Collected: 18:32
Urine Microscopic Reflex Cult Urgent
Urine Sodium Urgent
Date Specimen was Collected: 02/03/24
Time Specimen was Collected: 18:32
Urine Culture Urgent
MAYA Source: U
Specimen Description:
Date Specimen was Collected: 02/03/24
Time Specimen was Collected: 18:32
02/03/24 20:00
3% Sodium Chloride 250 ml [Sodium Chloride 3%] 250 ml IV ONCE
02/03/24 20:11
Admit/Transfer Patient As Directed
Co-Sign Provider:
Level of Care: Inpatient admission
Assign to:: Telemetry
Physician / Group: Dr Cabrera
Diagnosis: Hyponatremia
Reason for Telemetry: Arrhythmia
Date to Stop Telemetry: 02/06/24
Time to Stop Telemetry: 11:00
Reason for Hospitalization: pte p/w worsening hyponatremia
Expected length of stay greater than two midnights?: Yes
ELOS- Estimated Length of Stay in days: 2
I certify the patient meets the requirements for IP care: Yes
02/03/24 20:17
Code Status As Directed
Resuscitation Status: Full Code
02/03/24 20:45
INFECTIOUS DISEASE CONSULT Routine
Consulting Provider: Temi Tilley
Was physician already notified: Yes
Reason for consult: Abdominal wall cellulitis eval
NEPHROLOGY CONSULT Routine
Consulting Provider: Angie Sun
Was physician already notified: Yes
Reason for consult: Hyponatremia eval
02/03/24 22:17
Acetaminophen [Tylenol] 650 mg PO Q6HPRN PRN
Apixaban [Eliquis] 2.5 mg PO BID
Bisacodyl [Dulcolax] 10 mg RECTAL [id number] PRN
Clotrimazole [Lotrimin 1% Cream] See Dose Instructions TOPICAL BID
Diclofenac 1% Topical Gel See Protocol TOPICAL QID
Apply 2 or 4 grams as per protocol to the following joints:: Other joint(s)
Other joint/location to apply to:: right shoulder
Grams to be applied to other indicated joint/location:: 1
Docusate W/Senna [Senokot-S] 1 tablet PO BIDPRN PRN
Melatonin 3 mg PO HS
Miconazole Nitrate [Desenex/Mitrazol/Zeasorb] 1 applic TOPICAL BID
Mirtazapine [Remeron] 7.5 mg PO HS
Ondansetron HCl [Zofran] 4 mg PO Q8HPRN PRN
Polyethylene Glycol Powder [Miralax] 17 grams PO DAILYPRN PRN
Simethicone [Mylicon] 80 mg PO QIDPRN PRN
Sodium Bicarbonate 650 mg PO TID
Sodium Chloride 1 gram PO TID
02/03/24 22:17
Activity As Directed
Activity Level: Out of Bed-Early Mobility
Vital Signs As Directed
Frequency: Per unit guidelines
02/04/24 00:00
Amoxicillin 875 mg/Clav 125 mg [Augmentin 875 mg/125 mg] 1 tablet PO Q12
02/04/24 00:30
BMP [Basic Metabolic Panel] Routine
02/04/24 06:00
Basic Metabolic Panel IN AM
Complete Blood Count/No Diff IN AM
Levothyroxine [Synthroid] 75 mcg PO DAILY@0600
Ot Eval And Treat IN AM
Pt Eval And Treat IN AM
Activity Level: Out of Bed-Early Mobility
02/04/24 07:00
Midodrine [ProAmatine] 10 mg PO TID@0700,1300,1800
02/04/24 08:00
Collagenase [Santyl Ointment] See Dose Instructions TOPICAL DAILY
Diltiazem Extended Release [Cardizem Cd] 120 mg PO DAILY
Gabapentin [Neurontin] 300 mg PO DAILY
Guaifenesin [Mucinex] 600 mg PO Q12
Lactobac/Bifidobac [Visbiome] 1 cap PO BID
Lidocaine [Lidocaine 4% Patch] 1 patch TOPICAL DAILY
Loratadine [Claritin] 10 mg PO DAILY
Multivitamin [Theragran] 1 tablet PO DAILY
Pantoprazole [Protonix] 40 mg PO DAILY
Prednisone [Deltasone] 5 mg PO DAILY
02/04/24 09:00
DIETARY CONSULT Routine
Reason for Consult: nutrition supplements eval
02/06/24 11:00
DC Protocol for Telemetry ONCE
Abnormal Lab Results
02/03/24 02/03/24
17:55 19:48
WBC 14.9 H 10^3/uL
(4.8-10.8)
RBC 2.86 L 10^6/uL
(4.20-5.40)
Hgb 9.5 L g/dL
(12.0-16.0)
Hct 27.5 L %
(37.0-47.0)
MCH 33.2 H pg
(27.0-31.0)
RDW 17.0 H %
(11.5-14.5)
Abs Immat Gran (auto) 0.5 H 10^3/uL
(0-0.05)
Absolute Neuts (auto) 12.3 H 10^3/uL
(1.4-6.5)
Absolute Lymphs (auto) 0.8 L 10^3/uL
(1.2-3.4)
Absolute Monos (auto) 1.2 H 10^3/uL
(0.1-0.6)
Immature Gran % 3.2 H %
(0-0.5)
Neutrophils % 83.1 H %
(42.2-75.2)
Lymphocytes % 5.5 L %
(20.5-51.1)
Sodium 124 L mmol/L
(135-145)
Chloride 97 L mmol/L
(98-107)
Carbon Dioxide 20 L mmol/L
(22-30)
BUN 29 H mg/dl
(7-17)
Glucose 101 H mg/dl
(70-99)
Total Bilirubin 1.4 H mg/dl
(0.2-1.3)
AST 64 H U/L
(14-36)
ALT 64 H U/L
(0-35)
Alkaline Phosphatase 767 H U/L
(38-126)
Albumin 3.2 L g/dl
(3.5-5.0)
Leukocyte Esterase Rfl 2+ A
(Negative)
Urine WBC (Reflex) 16-20 A /HPF
(0-5)
Urine Sodium < 5 L mmol/L
(30-90)
02/03/24 17:55
02/03/24 17:55
Vital Signs
Initial and Last Documented VS:
Initial Vital Signs
Temp Pulse Resp BP Pulse Ox
98.3 F 83 22 100/63 94
02/03/24 17:11 02/03/24 17:11 02/03/24 17:11 02/03/24 17:11 02/03/24 17:11
Last Documented Vital Signs
Temp Pulse Resp BP Pulse Ox
98.1 F 77 18 113/64 97
02/03/24 22:32 02/03/24 22:32 02/03/24 22:32 02/03/24 22:32 02/03/24 22:32
MDM/Problems Addressed
MDM/Problems Addressed:
Hyponatremia, colostomy, poor appetite
*Pulse Oximetry
Patient hypoxic: no
*Language And Literature Division Chair Interpretation
Rate: normal
Interpretation: normal
Rhythm: sinus
*Critical Care Note
Total Time (30-74mins, 75-104mins- exclusive of procedures): 30 minutes
Data Reviewed
Review of Other/Old Records Reveals: Discharge Summary (Recent discharge summary)
Source: patient
Prescriptions/Medications Considered But Not Given:
Consider further IV fluids but recommended 3% by nephrology
Patient Management
Discussion with other providers: Hospitalist and Knitting Machine Operator [employer] (Nephrology, recommended 3% as ordered)
Escalation/DeEscalation of care consider admission/obs:
Stable, likely multifactorial in light of new ostomy. Admit
ED Attending Note
-
Portions of this chart may have been created with voice recognition software.� Occasional wrong word or��sound alike� substitutions may have occurred due to the inherent limitations of voice recognition software.
Discharge Plan
Departure
Patient Disposition: Admit
Date of Disposition: 02/03/24
Time of Disposition: 19:45
Admit to: Telemetry
Presentation/result/management discussed w/ accepting MD/DO: Hospitalist
Discharge Problem:
Acute hyponatremia, Anemia
Interventions
Interventions:
*Risk Screen - Suicide Last Done: 02/03/24 22:37
*General Assessment Last Done: 02/03/24 17:04
*Neglect/Abuse Screening Last Done: 02/03/24 17:04
*ED COVID-19 Vaccine History Last Done: 02/03/24 22:37
[2024-02-03 18:03] LABS: % Basophils 0.1 % (0-2); % Eosinophils 0.1 % (0-6); % Immature Granulocytes 3.2 % (0-0.5); % Lymphocytes 5.5 % (20.5-51.1); % Neutrophils 83.1 % (42.2-75.2); Absolute Immature Granulocytes 0.5 10^3/uL (0-0.05); Absolute Lymphocytes 0.8 10^3/uL (1.2-3.4); Absolute Monocytes 1.2 10^3/uL (0.1-0.6); Absolute Neutrophils 12.3 10^3/uL (1.4-6.5); Hematocrit 27.5 % (37.0-47.0); Hemoglobin 9.5 g/dL (12.0-16.0); Mean Corp Hgb Conc. 34.5 g/dL (33.0-37.0); Mean Corpuscular Hgb 33.2 pg (27.0-31.0); Mean Corpuscular Volume 96.2 fL (81.0-99.0); Nucleated Red Blood Cells % 0 %; Platelet Count 298 10^3/uL (130-400); Red Blood Cell Count 2.86 10^6/uL (4.20-5.40); White Blood Cell Count 14.9 10^3/uL (4.8-10.8)
[2024-02-03 18:15] LABS: ALT (SGPT) 64 U/L (0-35); AST (SGOT) 64 U/L (14-36); Albumin 3.2 g/dl (3.5-5.0); Alkaline Phosphatase 767 U/L (38-126); Blood Urea Nitrogen 29 mg/dl (7-17); Calcium 8.6 mg/dl (8.4-10.2); Carbon Dioxide 20 mmol/L (22-30); Chloride 97 mmol/L (98-107); Estimated Creatinine Clearance 32 ml/min; Glucose 101 mg/dl (70-99); Potassium 4.5 mmol/L (3.5-5.1); Sodium 124 mmol/L (135-145); Total Bilirubin 1.4 mg/dl (0.2-1.3); Total Protein 6.5 g/dl (6.3-8.2); eGFR 55.55
[2024-02-03 18:59] VITALS: BP 108/69
[2024-02-03 20:00] LABS: Urine Albumin Trace (Neg - Trace); Urine Bilirubin Negative (Negative); Urine Character Slightly Cloudy (Clear); Urine Color Amber; Urine Glucose Negative (Negative); Urine Ketone Negative (Negative); Urine Leukocyte 2+ (Negative); Urine Nitrite Negative (Negative); Urine Occult Blood Negative (Negative); Urine Specific Gravity 1.015 (<1.030); Urine Urobilinogen Negative (Neg - 1+)
[2024-02-03 20:16] LABS: Osmolality Urine 457 mOsm/kg (300-900)
[2024-02-03 20:17] LABS: Urine Red Blood Cell 0-2 /HPF (0-2); Urine Squamous Cell 0-2 /LPF (Few); Urine White Cell 16-20 /HPF (0-5)
--- NOTE | 2024-02-03 20:18 | HPS.HSE ---
Family Physician
-
Family Physician: David Valdez
Chief Complaint
-
Hyponatremia
History of Present Illness
Patient 83 years old female with past medical history of Afib, HTN, hyperlipidemia, sciatica, diverticulitis, Enterococcus bacteremia, elevated LFT's, PMR on chronic steroids, hypothyroidism, recurrent small bowel obstruction in the setting of
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 Patient has been follow-up by nephrology at
the rehab center and she has been placed on salt tablets and bicarb and despite that patient's sodium has been increasingly getting worse and today sodium has dropped to 123 yesterday and this morning 124, later on 122, and by the time of my
evaluation latest sodium in the ER is 124. Nephrology has instructed to bring her to the ED for further evaluation and hospital management. Family has described her been more lethargic than usual. Patient also admits decreased oral intake and
decreased appetite. She also had a recent abdominal wall cellulitis possible fungal infection for which she has been treated with antibiotics orally. She denies any fevers or chills. Denies any chest pain or shortness of breath. She also was
noted to have a white count of 14.9 and hemoglobin 9.5. She was referred to hospitalist for further evaluation.
Medical History
Past Medical History
Past Medical History: Reports Other (Bowel Resection (12/27/23 Exploratory laparotomy with total abdominal colectomy and end ileostomy) Atrial fibrillation (Eliquis) Hypertension Hypercholesterolemia Sciatica GERD Hypothyroidism Lumbar spinal
stenosis PMR on chronic steroids Trigeminal neuralgia)
Past Surgical History: Reports Other (Bowel surgery, Appendectomy Cardiac ablation, Right hip hemiarthroplasty)
Social History
Tobacco: Non-smoker
Alcohol: None
Drug: None
Family History
Family History: Not pertinent
Allergies / Home Medications
Allergies reflects when Allergies were last updated in [facility]..
Home Medications with original date entered in [facility].
Allergy/Medication List:
Allergies
Allergy/AdvReac Type Severity Reaction Status Date / Time
amlodipine Allergy Nausea Verified 02/03/24 19:54
doxycycline Allergy Hives Verified 02/03/24 19:53
sulfamethoxazole Allergy Rash Verified 02/03/24 19:53
[From Bactrim]
trimethoprim [From Bactrim] Allergy Rash Verified 02/03/24 19:53
hydrocodone [From Vicodin] AdvReac Vomiting Verified 02/03/24 19:52
metoprolol [From Lopressor] AdvReac Dizzy Verified 02/03/24 19:52
Home Medications
diltiazem HCl 120 mg capsule,extended release 24 hr 120 mg PO DAILY #30 caps 03/24/21
gabapentin 300 mg capsule 300 mg PO DAILY #30 caps 03/24/21
apixaban 2.5 mg tablet (Eliquis) 2.5 mg PO BID Blood Clot Prevention/Tx 12/26/23
levothyroxine 75 mcg tablet 75 mcg PO DAILY@0600 Thyroid 12/26/23
multivitamin with folic acid 400 mcg tablet (Tab-A-Taz) 1 tab PO DAILY Supplement 01/03/24
pantoprazole 40 mg tablet,delayed release 40 mg PO DAILY #14 tabs 01/03/24
ondansetron HCl 4 mg tablet 4 mg PO Q8HPRN PRN NAUSEA/VOMITING 01/04/24
amoxicillin 875 mg-potassium clavulanate 125 mg tablet 1 tab PO Q12 cellulitis 7 days #14 tabs 02/01/24
collagenase clostridium histo. 250 unit/gram topical ointment (Santyl) 1 applic topical DAILY sacral wound 30 days #30 grams 02/01/24
diclofenac sodium 1 % topical gel 0 g topical QID shoulder pain 30 days #25 grams 02/01/24
miconazole nitrate 2 % topical powder (Miconazorb AF) 1 applic topical BID Skin issues 30 days #85 grams 02/01/24
midodrine 5 mg tablet 10 mg (2 x 5 mg) PO TID@0700,1300,1800 low blood pressure 30 days #90 tabs 02/01/24
mirtazapine 7.5 mg tablet 7.5 mg PO HS insomnia 30 days #30 tabs 02/01/24
prednisone 5 mg tablet 5 mg PO DAILY arthritis 30 days #30 tabs 02/01/24
Lactobac no.2-Bifidobac no.1-S. thermo 112.5 billion cell capsule (Visbiome) 1 cap PO BID 02/03/24
acetaminophen 325 mg tablet 650 mg PO Q6HPRN PRN mild pain/fever 02/03/24
clotrimazole 1 % topical cream (Athlete's Foot (clotrimazole)) 1 applic topical BID 02/03/24
guaifenesin 600 mg tablet, extended release 12 hr (Mucinex) 600 mg PO Q12 02/03/24
lidocaine 4 % topical patch 1 patch topical DAILY 02/03/24
lidocaine 4 % topical patch 1 patch topical DAILY 02/03/24
loratadine 10 mg tablet 10 mg PO DAILY 02/03/24
melatonin 3 mg tablet 3 mg PO HS 02/03/24
simethicone 80 mg chewable tablet 80 mg PO QIDPRN PRN upset stomach 02/03/24
sodium bicarbonate 650 mg tablet 650 mg PO TID 02/03/24
sodium chloride 1,000 mg soluble tablet 1,000 mg PO TID 02/03/24
Review of Systems
-
A 12 point ROS was completed and negative except as noted: Yes
Physical Exam
Vital Signs
Vital Signs
Temp Pulse Resp BP Pulse Ox
98.3 F 82 18 108/69 96
02/03/24 17:11 02/03/24 18:59 02/03/24 18:59 02/03/24 18:59 02/03/24 18:59
Physical exam:
General: Acute and chronically ill
HEENT: Normocephalic, Atraumatic and Dry Mucous Membranes
Respiratory: Clear to Auscultation; Negative Wheezes, Rales or Rhonchi
Cardiac: Regular Rhythm and S1/S2
GI: Soft, Nontender and Nondistended. Ostomy in place. Erythema surrounding ostomy site.
Musculoskeletal: No Clubbing, No Cyanosis and No Edema
Neuro: Awake, Alert and Oriented, generalized weakness, no gross neurological deficits
Psych: Calm
Physical Exam
General: Other
Laboratory Results
-
02/03/24 17:55
02/03/24 17:55
Laboratory Results
Total Bilirubin 1.4 mg/dl (0.2-1.3) H 02/03/24 17:55
AST 64 U/L (14-36) H 02/03/24 17:55
ALT 64 U/L (0-35) H 02/03/24 17:55
Alkaline Phosphatase 767 U/L (38-126) H 02/03/24 17:55
Impression/Plan
-
IMPRESSION:
Patient 83 years old female who has multiple comorbidities including recent small bowel obstruction, bowel surgery due to mesenteric ischemia, A-fib, hypertension, hypotension, among multiple other medical problems who came into the with worsening
hyponatremia. Patient at increased risk of morbidity mortality due to acute presentation and multiple comorbidities therefore she will need to be treated in the hospital and monitor accordingly for progress and or toxicity.
Impression:
Symptomatic worsening hyponatremia
Recent abdominal wall cellulitis
Metabolic acidosis
Leukocytosis
Anemia
Increased LFTs
Conditions prior to presentation:
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
Recurrent small bowel obstruction
Recent enterococcal bacteremia
Leukocytosis
Atrial fibrillation
Hypotension
Hypothermia
Acute kidney injury
Hypoalbuminemia
Hx polymyalgia rheumatica (chronic steroids)
PLAN:
She will be started on 3% saline IV fluid
Her sodium will be monitored closely-goal should be no more than 6 to 8 mEq in 24 hours. If any rise of sodium faster than that, we will need to stop 3% and might need hypotonic fluids or medications to bring Na down.
Cardiac monitoring
Nephrology consult (Warrior texted nephrology today)
ID consult (Warrior texted ID today)
Continue oral antibiotic
Continue topical antifungal
Trend WBC
Eliquis will help for DVT prophylaxis
CODE STATUS full code
Total time spent on today's encounter was 75 minutes which included time spent in counseling the patient/family regarding diagnosis and treatment plan as listed above, goals of care, and symptom management. Case was discussed with nursing staff,
specialists, and care coordinators/case management. All labs and imaging personally reviewed by me. Remainder the time spent in detailed review of previous records, lab data, imaging, and other medical provider documentation.
[2024-02-03] MEDS: SODIUM CHLORIDE 3% 250 IV (20:22)
[2024-02-03 20:23] LABS: Urine Sodium < 5 mmol/L (30-90)
[2024-02-03 22:31] VITALS: BMI 18.8
[2024-02-03 22:32] VITALS: BP 113/64
[2024-02-03] MEDS: AUGMENTIN 875 MG/125 MG 1 TABLET PO (23:48)
[2024-02-03] MEDS: REMERON 7.5 MG PO (23:48)
[2024-02-03] MEDS: SODIUM BICARBONATE 650 MG PO (23:48)
[2024-02-03] MEDS: SODIUM CHLORIDE 1 GRAM PO (23:48)
[2024-02-03] MEDS: MELATONIN 3 MG PO (23:48)
[2024-02-03] MEDS: ELIQUIS 2.5 MG PO (23:48)
[2024-02-04] VITALS (7 sets, daily range): BP systolic 92–132; BP diastolic 51–75; PULSE 71; O2SAT 96; BMI 18.8
[2024-02-04] MEDS: DICLOFENAC 1% TOPICAL GEL TOPICAL (01:00)
[2024-02-04] MEDS: DESENEX/MITRAZOL/ZEASORB TOPICAL (01:00)
[2024-02-04] MEDS: LOTRIMIN 1% CREAM TOPICAL (01:00)
[2024-02-04] MEDS: ProAmatine 10 MG PO ×3 (05:51→16:59)
[2024-02-04] MEDS: SYNTHROID 75 MCG PO (05:51)
[2024-02-04 07:30] LABS: Hematocrit 25.1 % (37.0-47.0); Hemoglobin 8.3 g/dL (12.0-16.0); Mean Corp Hgb Conc. 33.1 g/dL (33.0-37.0); Mean Corpuscular Hgb 32.8 pg (27.0-31.0); Mean Corpuscular Volume 99.2 fL (81.0-99.0); Mean Platelet Volume 9.9 fL (7.4-10.4); Platelet Count 243 10^3/uL (130-400); Red Blood Cell Count 2.53 10^6/uL (4.20-5.40); Red Cell Dist. Width 17.1 % (11.5-14.5); White Blood Cell Count 9.2 10^3/uL (4.8-10.8)
[2024-02-04 08:01] LABS: ALT (SGPT) 54 U/L (0-35); AST (SGOT) 59 U/L (14-36); Albumin 2.7 g/dl (3.5-5.0); Alkaline Phosphatase 699 U/L (38-126); Blood Urea Nitrogen 28 mg/dl (7-17); Calcium 8.4 mg/dl (8.4-10.2); Carbon Dioxide 20 mmol/L (22-30); Chloride 106 mmol/L (98-107); Direct Bilirubin 0.9 mg/dl (0.0-0.4); Estimated Creatinine Clearance 35 ml/min; Glucose 76 mg/dl (70-99); Potassium 4.6 mmol/L (3.5-5.1); Sodium 129 mmol/L (135-145); Total Protein 5.7 g/dl (6.3-8.2); eGFR > 60.00
[2024-02-04] MEDS: LIDOCAINE 4% PATCH 1 PATCH TOPICAL (08:46)
[2024-02-04] MEDS: SODIUM CHLORIDE 1 GRAM PO ×3 (08:47→22:48)
[2024-02-04] MEDS: SODIUM BICARBONATE 650 MG PO ×3 (08:47→22:48)
[2024-02-04] MEDS: CLARITIN 10 MG PO (08:47)
[2024-02-04] MEDS: VISBIOME 1 CAP PO ×2 (08:47→20:27)
[2024-02-04] MEDS: THERAGRAN 1 TABLET PO (08:47)
[2024-02-04] MEDS: PROTONIX 40 MG PO (08:47)
[2024-02-04] MEDS: CARDIZEM CD 120 MG PO (08:47)
[2024-02-04] MEDS: MUCINEX 600 MG PO ×2 (08:47→20:27)
[2024-02-04] MEDS: NEURONTIN 300 MG PO (08:47)
[2024-02-04] MEDS: DELTASONE 5 MG PO (08:47)
[2024-02-04] MEDS: ELIQUIS 2.5 MG PO ×2 (08:47→20:27)
[2024-02-04] MEDS: AUGMENTIN 875 MG/125 MG 1 TABLET PO ×2 (08:47→20:27)
[2024-02-04] MEDS: DICLOFENAC 1% TOPICAL GEL 100 GRAM TOPICAL ×4 (08:48→22:48)
[2024-02-04] MEDS: LOTRIMIN 1% CREAM 1 APPLIC TOPICAL ×2 (08:49→20:27)
[2024-02-04] MEDS: DESENEX/MITRAZOL/ZEASORB 1 APPLIC TOPICAL ×2 (08:49→20:28)
--- NOTE | 2024-02-04 09:04 | W.PN.HOSP.TC ---
Today's Communication/Plan
-
Monitor sodium. Salt tablets and fluid restriction. PT OT eval
Assessment / Plan
Assessment / Plan
Physical exam:
General: Acute and chronically ill
HEENT: Normocephalic, Atraumatic and Dry Mucous Membranes
Respiratory: Clear to Auscultation; Negative Wheezes, Rales or Rhonchi
Cardiac: Regular Rhythm and S1/S2
GI: Soft, Nontender and Nondistended. Ostomy in place. Erythema surrounding ostomy site improving.
Musculoskeletal: No Clubbing, No Cyanosis and No Edema
Neuro: Awake, Alert and Oriented, generalized weakness, no gross neurological deficits
Psych: Calm
A/P:
Impression:
Symptomatic worsening hyponatremia--> improved on 3% saline
Recent abdominal wall cellulitis/peristomal cellulitis and candidiasis, on oral antibiotic and topical antifungal
Metabolic acidosis
Leukocytosis, improved
Anemia, slightly downtrend
Increased LFTs, slightly downtrend
Conditions prior to presentation:
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
Recurrent small bowel obstruction
Recent enterococcal bacteremia
Leukocytosis
Atrial fibrillation
Hypotension
Acute kidney injury
Hypoalbuminemia
Hx polymyalgia rheumatica (chronic steroids)
PLAN:
Stopped 3% saline IV fluid
Continue salt tablets for now
Continue fluid restriction
Repeat sodium in a.m. to check for stability
PT OT eval
Appreciate nephrology consult
Continue oral antibiotic
Continue topical antifungal
Eliquis will help for DVT prophylaxis
CODE STATUS full code
Discussed with daughter over the phone today and she prefers her to go home rather than rehab. Also she wants her home today but discussed that we need to recheck sodium in 24 hours for stability.
Anticipated Discharge: Within 24 hours
Subjective/Interval History
-
Date of Service: February 04, 2024
Patient with generalized weakness. No seizures. No chest pain or shortness of breath. Afebrile
Objective Data
-
Labs:
Laboratory Results
02/03/24 02/04/24 02/04/24
23:05 00:30 06:47
WBC
Hgb
Hct
Plt Count
Sodium Cancelled Cancelled 129 L
Potassium Cancelled 4.6
Chloride Cancelled 106
Carbon Dioxide Cancelled 20 L
BUN Cancelled 28 H
Creatinine Cancelled 0.9
Glucose Cancelled 76
Calcium Cancelled 8.4
Total Bilirubin 1.0
AST 59 H
ALT 54 H
Alkaline Phosphatase 699 H
02/04/24
06:48
WBC 9.2
Hgb 8.3 L
Hct 25.1 L
Plt Count 243
Sodium
Potassium
Chloride
Carbon Dioxide
BUN
Creatinine
Glucose
Calcium
Total Bilirubin
AST
ALT
Alkaline Phosphatase
Vital Signs:
Vital Signs
Temp Pulse Resp BP Pulse Ox
97.7 F 93 16 132/75 97
02/04/24 08:11 02/04/24 08:47 02/04/24 08:11 02/04/24 08:47 02/04/24 08:11
--- NOTE | 2024-02-04 10:03 | WOUNDNOTE ---
[facility] RN note: Patient admitted with hyponatremia. Patient admitted from [facility].
See H&P for complete history.
PMH: a fib (Eliquis), HTN, sciatica, diverticulosis, enterococcus bacteremia, PMR on steroids, recurrent SBO mesenteric ischemia, s/p Ileostomy 11/2023, recent sacral pressure injury
Wound Location and type/assessment: Patient admitted with: Unstageable sacral pressure injury with mostly yellow slough and surrounding erythema. Santyl is current treatment. Abdominal yeast rash.
Appetite: poor.
Pressure redistribution devices in place: [employer] air bed. She ambulated with roller walker with PT/OT. Air chair cushion.
Plan: Ostomy supplies left in room (Holden wafer #[id number], Mariella seal and Holden pouch # [id number]). Encouraged patient to eat more protein with meals. Patient looks forward to eating at home since she likes home meals better.
Will confirm orders with hospitalist and discussed with SENAIT Snyder.
Care plan to be updated and will follow as needed. VN planned if goes home instead of [facility].
Recommend follow up at wound care center upon discharge.
--- NOTE | 2024-02-04 10:44 | CON.ID ---
Consultation
-
Date/Time Consultation Requested: February 03, 20242044
Date/Time Consultation Performed: February 04, 2024 1045
Requesting Provider: Dr. Wilbert Cabrera
Performing Provider: Dr. Yashira Kaufman
Reason for Consultation: Abdominal wall cellulitis
Chief Complaint / Past History
Chief Complaint
Low sodium
History of Present Illness
83-year-old female with history of atrial fibrillation, PMR on chronic steroid, hypothyroidism, who has had recent prolonged hospital stay with she was admitted on December 26, 2023 with ischemic bowel, Enterococcus faecalis bacteremia.December 26 she
underwent total abdominal colectomy and end ileostomy. Postop complicated by A-fib with RVR, CHELSEA, and electrolyte abnormalities. January 02 she was discharged to [facility] on Unasyn to complete 14-day course till January 10 as per ID (Dr. Nuñez).
However patient was readmitted to the hospital January 03 due to bowel obstruction with nausea and vomiting. She was managed conservatively with NG tube decompression. Unasyn was broadened to meropenem on 01/09 and continued till 01/13.She was
discharged back to [facility] on 01/15. While at rehab, found to have redness, maceration, swelling around the ostomy, a CT 01/28 done showing no focal fluid collection. She was seen by ID (dr. Tilley) on 01/31 who started her on empiric Augmentin x
5 to 7 days and to continue topical antifungal. She was sent back to 02/02 due to significant hyponatremia. Today, she reports the rash around the stoma is much better an almost gone.
Past History
Additional Past Medical History:
PMR on steroid
pAfib
hypothyroidism
HTN
Dyslipidemia
Sciatica
Lumbar spinal stenosis
Trigeminal neuralgia
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
Appendectomy
right hip hemiarthroplasty
Allergy History:
amlodipine Allergy (Verified 02/03/24 19:54)
Nausea
doxycycline Allergy (Verified 02/03/24 19:53)
Hives
sulfamethoxazole [From Bactrim] Allergy (Verified 02/03/24 19:53)
Rash
trimethoprim [From Bactrim] Allergy (Verified 02/03/24 19:53)
Rash
hydrocodone [From Vicodin] Adverse Reaction (Verified 02/03/24 19:52)
Vomiting
metoprolol [From Lopressor] Adverse Reaction (Verified 02/03/24 19:52)
Dizzy
Medications Reviewed: Yes
Current Antibiotics:
Augmentin 875mg po bid day 4
Social History
Tobacco: Former Smoker
Alcohol: Occasional
Drug: None
Personal:
Family History
Family History: Not Pertinent
Review of Systems
Review of Systems
General: Negative Fever, Chills or Change in Appetite
HEENT: Negative Sinus Problems or Headache
Respiratory: Negative Dyspnea
Gasteroenterology: Negative Nausea or Vomiting
Genital / Urological: Negative Dysuria
Endocrine: Negative Weakness
Neurological: Negative Headache
All systems: All other systems were reviewed and were negative
Vital Signs
Temp Pulse Resp BP Pulse Ox
97.7 F 93 16 132/75 97
02/04/24 08:11 02/04/24 08:47 02/04/24 08:11 02/04/24 08:47 02/04/24 08:11
Physical Exam
Physical Exam
Constitutional: No Acute Distress and Comfortable
Eyes: No Conjunctival Hemorrhage and Sclera Anicteric
Cardiovascular: Regular Rate and S1/S2
Pulmonary: Clear
Gastrointestinal: Soft, Non Tender, Non Distended and Other (Right abdomen: ostomy intact, no erythema outside the dressing)
Extremities: Negative Edema
Neurological: AO x 3
Lab / Diagnostic Study Results
02/04/24 06:48
02/04/24 06:47
Abs Immat Gran (auto) 0.5 10^3/uL (0-0.05) H 02/03/24 17:55
Absolute Neuts (auto) 12.3 10^3/uL (1.4-6.5) H 02/03/24 17:55
Absolute Lymphs (auto) 0.8 10^3/uL (1.2-3.4) L 02/03/24 17:55
Absolute Monos (auto) 1.2 10^3/uL (0.1-0.6) H 02/03/24 17:55
Absolute Basos (auto) 0.0 10^3/uL (0-0.2) 02/03/24 17:55
Immature Gran % 3.2 % (0-0.5) H 02/03/24 17:55
Neutrophils % 83.1 % (42.2-75.2) H 02/03/24 17:55
Lymphocytes % 5.5 % (20.5-51.1) L 02/03/24 17:55
Monocytes % 8.0 % (1.7-9.3) 02/03/24 17:55
Eosinophils % 0.1 % (0-6) 02/03/24 17:55
Basophils % 0.1 % (0-2) 02/03/24 17:55
Ur Squamous Epith Cells 0-2 /LPF (Few) 02/03/24 19:48
Microbiology Results
Micro:
02/03/24 19:48 Urine Culture - Pending
Urine
01/29/24 CT a/p: Evaluation markedly limited by lack of intravenous contrast and marked paucity of oral contrast. No gross findings to suggest abnormal focal fluid collection within the abdomen proper. Please note, on the basis of this study, a small
abnormal focal fluid collection cannot be entirely excluded. Apparent recent prior total colectomy with nonobstructed right lower quadrant ileostomy. True pelvis markedly limited by marked beam hardening artifact from right hip arthroplasty. Small
volume dependent free fluid without significant change.
Assessment / Plan
# Fiorella-stoma cellulitis/candidiasis resolving
- Continue Augmentin 875mg po bid (day 4) through tomorrow.
-Continue topical antifungal
# Leukocytosis resolved
--- NOTE | 2024-02-04 11:10 | W.CON.NEPH ---
Consultation
-
Date/Time Consultation Requested: February 04, 2024 7:00 AM
Date/Time Consultation Performed: February 04, 2024 11:00 AM
Requesting Provider: Deborah
Performing Provider: Dr. Barahona
Reason for Consultation: Hyponatremia
Medical History
-
Chief Complaint: Hyponatremia
History of Present Illness:
83 yo female with PMH of afib on Eliquis, on Diltiazem, hypotension on midodrine, hypervolemia on lasix, hyperlipidemia , sciatica, Lumbar Spinal stenosis, diverticulitis, hypothyroidism on synthroid, PMR was on chronic steroids, has recurrent
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
on 12/26. Later d/c to [facility] on 01/01 but after overnight stay was readmitted for recurrent small bowel obstruction and had bowel rest with TPN, as she improved return to [facility] on 01/15. During these admits she was seen nephro for hyponatremia, CHELSEA, vol
overload-which improved with diuresis. During rehab stay pt is off lasix from 01/17, her ostomy out put seem higher than intake. Her potassium wasat 6 today and sodium 129 hence nephrology consulted. ID follows and on po abx for abd wall cellulitis
recently. She was transferred back from [facility] rehab to the hospital last evening after her sodium dropped to 122. Nephrology was reconsulted for hyponatremia following the transfer from rehab to the hospital.
Past Medical History
Atrial Fibrillation, Hypertension, Hyperlipidemia, Hypothyroidism, Sciatica, L5 Spinal Stenosis, Right Femoral Neck Fracture status post right hip hemiarthroplasty, Nosebleed, Diverticulitis, Elevated Hepatic Transaminases, Trigeminal Neuralgia,
Appendectomy and Cardiac Ablation, colectomy, ileostomy
Social History
Tobacco: Former Smoker
Alcohol: None
Drug: None
Living: With Family
Family History
Family History: Not Pertinent
Allergies / Home Medications
Allergy/AdvReac Type Severity Reaction Status Date / Time
amlodipine Allergy Nausea Verified 02/03/24 19:54
doxycycline Allergy Hives Verified 02/03/24 19:53
sulfamethoxazole Allergy Rash Verified 02/03/24 19:53
[From Bactrim]
trimethoprim [From Bactrim] Allergy Rash Verified 02/03/24 19:53
hydrocodone [From Vicodin] AdvReac Vomiting Verified 02/03/24 19:52
metoprolol [From Lopressor] AdvReac Dizzy Verified 02/03/24 19:52
�Medication �Instructions �Recorded �Confirmed �Type
diltiazem HCl 120 mg 120 mg PO DAILY #30 caps 03/24/21 02/03/24 Rx
capsule,extended release 24 hr
gabapentin 300 mg capsule 300 mg PO DAILY #30 caps 03/24/21 02/03/24 Rx
apixaban 2.5 mg tablet (Eliquis) 2.5 mg PO BID Blood Clot 12/26/23 02/03/24 History
Prevention/Tx
levothyroxine 75 mcg tablet 75 mcg PO DAILY@0600 Thyroid 12/26/23 02/03/24 History
multivitamin with folic acid 400 1 tab PO DAILY Supplement 01/03/24 02/03/24 History
mcg tablet (Tab-A-Taz)
pantoprazole 40 mg tablet,delayed 40 mg PO DAILY #14 tabs 01/03/24 02/03/24 Rx
release
ondansetron HCl 4 mg tablet 4 mg PO Q8HPRN PRN NAUSEA/VOMITING 01/04/24 02/03/24 History
amoxicillin 875 mg-potassium 1 tab PO Q12 cellulitis 7 days #14 02/01/24 02/03/24 Rx
clavulanate 125 mg tablet tabs
collagenase clostridium histo. 250 1 applic topical DAILY sacral 02/01/24 02/03/24 Rx
unit/gram topical ointment (Santyl) wound 30 days #30 grams
diclofenac sodium 1 % topical gel 0 g topical QID shoulder pain 30 02/01/24 02/03/24 Rx
days #25 grams
miconazole nitrate 2 % topical 1 applic topical BID Skin issues 02/01/24 02/03/24 Rx
powder (Miconazorb AF) 30 days #85 grams
midodrine 5 mg tablet 10 mg (2 x 5 mg) PO 02/01/24 02/03/24 Rx
TID@0700,1300,1800 low blood
pressure 30 days #90 tabs
mirtazapine 7.5 mg tablet 7.5 mg PO HS insomnia 30 days #30 02/01/24 02/03/24 Rx
tabs
prednisone 5 mg tablet 5 mg PO DAILY arthritis 30 days 02/01/24 02/03/24 Rx
#30 tabs
Lactobac no.2-Bifidobac no.1-S. 1 cap PO BID 02/03/24 02/03/24 History
thermo 112.5 billion cell capsule
(Visbiome)
acetaminophen 325 mg tablet 650 mg PO Q6HPRN PRN mild 02/03/24 02/03/24 History
pain/fever
clotrimazole 1 % topical cream 1 applic topical BID 02/03/24 02/03/24 History
(Athlete's Foot (clotrimazole))
guaifenesin 600 mg tablet, 600 mg PO Q12 02/03/24 02/03/24 History
extended release 12 hr (Mucinex)
lidocaine 4 % topical patch 1 patch topical DAILY 02/03/24 02/03/24 History
lidocaine 4 % topical patch 1 patch topical DAILY 02/03/24 02/03/24 History
loratadine 10 mg tablet 10 mg PO DAILY 02/03/24 02/03/24 History
melatonin 3 mg tablet 3 mg PO HS 02/03/24 02/03/24 History
simethicone 80 mg chewable tablet 80 mg PO QIDPRN PRN upset stomach 02/03/24 02/03/24 History
sodium bicarbonate 650 mg tablet 650 mg PO TID 02/03/24 02/03/24 History
sodium chloride 1,000 mg soluble 1,000 mg PO TID 02/03/24 02/03/24 History
tablet
Review of Systems
-
All complete 12 point ROS have been negative other than stated in HPI
History Source: Patient
Abdomen/GI: Other (Increased ostomy output)
Physical Exam
Vital Signs
Vital Signs
Temp Pulse Resp BP Pulse Ox
97.7 F 93 16 132/75 97
02/04/24 08:11 02/04/24 08:47 02/04/24 08:11 02/04/24 08:47 02/04/24 08:11
Lab Results
WBC 9.2 10^3/uL (4.8-10.8) 02/04/24 06:48
RBC 2.53 10^6/uL (4.20-5.40) L 02/04/24 06:48
Hgb 8.3 g/dL (12.0-16.0) L 02/04/24 06:48
Hct 25.1 % (37.0-47.0) L 02/04/24 06:48
Plt Count 243 10^3/uL (130-400) 02/04/24 06:48
Sodium 129 mmol/L (135-145) L 02/04/24 06:47
Potassium 4.6 mmol/L (3.5-5.1) 02/04/24 06:47
Chloride 106 mmol/L (98-107) 02/04/24 06:47
Carbon Dioxide 20 mmol/L (22-30) L 02/04/24 06:47
BUN 28 mg/dl (7-17) H 02/04/24 06:47
Creatinine 0.9 mg/dL (0.6-1.0) 02/04/24 06:47
eGFR > 60.00 02/04/24 06:47
Glucose 76 mg/dl (70-99) 02/04/24 06:47
Calcium 8.4 mg/dl (8.4-10.2) 02/04/24 06:47
Albumin 2.7 g/dl (3.5-5.0) L 02/04/24 06:47
Physical Exam
General: AOx3, Nontoxic , NAD
HEENT: PERRL, EOMI, Anicteric, Conjunctivae Clear, Ear/Nose Intact, Hearing Normal, Oropharynx Clear/Moist, Dentition Intact, Facial Symmetry, Neck Supple, Neck: Trachea Midline, No JVD and No Thyromegaly, no Bruits
Respiratory: Clear to auscultation bilaterally with normal lung exersion
Cardiac: S1/S2 and Regular Rate/Rhythm
Breast: Deferred by me
Abdomen: Soft, Nontender, Nondistended, Normal Bowel Sounds and No Hepatosplenomegaly, ostomey site clean
Rectal: Deferred by Provider
Genito-urinary: No Costovertebral Tenderness
Extremities: No Clubbing, No Cyanosis and No Edema
Skin: No Rash or open lesions
Neuro: Nonfocal/Grossly Intact, CN II-XII (Intact) and Strength (Musculoskeletal exam 5 out of 5 both upper and lower extremities)
Hematologic/Lymphatic: No Cervical Lymphadenopathy, No Submandibular Lymphadenopathy and No Supraclavicular Lymphadenopathy
Psych: Mood/afflect pleasant, Insight/judgement good and Appropriate
Vascular: plus 2 pedal and radial pulses
General: Awake, Alert, Oriented, AOx3, No Distress and Nontoxic
HEENT: EOMI, Anicteric and No JVD
Respiratory: Clear
Cardiac: S1/S2 and Regular Rate/Rhythm
Abdomen: Soft, Nontender and Nondistended
Musculoskeletal: No Cyanosis and No Edema (trace)
Skin: No Rash and Warm
Neuro: Nonfocal/Grossly Intact
Psych: Mood/afflect pleasant, Insight/judgement good and Appropriate
Data Reviewed
-
Labs: Labs Reviewed by me (BMP urine awesome reviewed)
Old Records: Reviewed (Reviewed previous consultation from [facility])
Assessment/Plan
-
IMP:
HYpoantremia
Hyperkalemia
Non gap met acidosis
Anemia
abd wall cellulitis
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
h/o Bilateral pleural effusion/peripheral edema
Paroxysmal atrial fibrillation
elevated LFTs
Polymyalgia rheumatica by [id number]
Hypothyroidism
HTN
Dyslipidemia
Plan:
Hyponatremia acute on chronic likely from GI loss
na decreased to 122 and patient readmitted to hospital last evening
3% saline provided overnight and sodium now up to 129
Maintain fluid restriction
but she also has sig high ADH state underlying U osmo 457
U na is low from poor solute intake
maintain salt tab 1gm TID
primary goal to control GI loss
will need FR 48 ounces/day however careful with vol depletion
K stable for now
met acidosis improving s/p IVF bicarb, hold po bicarb for now
cr at baseline at 0.9
BP stable on midodrine
afib, controlled with cardizem,
[2024-02-04] MEDS: SANTYL OINTMENT 1 APPLIC TOPICAL (11:28)
--- NOTE | 2024-02-04 15:25 | WOUNDNOTE ---
WOC RN Note: José Antonio Sinlgeton re: hospital bed with air mattress recommended if patient accepts; patient has a sacral unstageable vs stage 3 pressure injury. h
--- NOTE | 2024-02-04 16:00 | CM ---
Received message from wound care that patient will need hospital bed and air mattress. Will discuss with patient and obtain information for assessment.
[2024-02-04] MEDS: MELATONIN 3 MG PO (22:48)
[2024-02-04] MEDS: REMERON 7.5 MG PO (22:48)
[2024-02-05 03:45] VITALS: BP 113/68
[2024-02-05 03:46] VITALS: BMI 17.9
[2024-02-05 06:02] VITALS: BP 115/68
[2024-02-05] MEDS: ProAmatine 10 MG PO ×2 (06:04→12:23)
[2024-02-05] MEDS: SYNTHROID 75 MCG PO (06:05)
[2024-02-05 07:00] VITALS: BP 109/65
[2024-02-05 07:24] LABS: Blood Urea Nitrogen 27 mg/dl (7-17); Carbon Dioxide 18 mmol/L (22-30); Chloride 105 mmol/L (98-107); Estimated Creatinine Clearance 34 ml/min; Glucose 83 mg/dl (70-99); Potassium 5.1 mmol/L (3.5-5.1); Sodium 131 mmol/L (135-145); eGFR > 60.00
[2024-02-05] MEDS: NEURONTIN 300 MG PO (08:34)
[2024-02-05] MEDS: CLARITIN 10 MG PO (08:35)
[2024-02-05] MEDS: LIDOCAINE 4% PATCH TOPICAL (08:35)
[2024-02-05] MEDS: CARDIZEM CD 120 MG PO (08:35)
[2024-02-05] MEDS: SODIUM BICARBONATE 650 MG PO (08:36)
[2024-02-05] MEDS: PROTONIX 40 MG PO (08:36)
[2024-02-05] MEDS: DELTASONE 5 MG PO (08:36)
[2024-02-05] MEDS: VISBIOME 1 CAP PO (08:36)
[2024-02-05] MEDS: SODIUM CHLORIDE 1 GRAM PO (08:36)
[2024-02-05] MEDS: DESENEX/MITRAZOL/ZEASORB 1 APPLIC TOPICAL (08:36)
[2024-02-05] MEDS: THERAGRAN 1 TABLET PO (08:36)
[2024-02-05] MEDS: MUCINEX 600 MG PO (08:36)
[2024-02-05] MEDS: ELIQUIS 2.5 MG PO (08:36)
[2024-02-05] MEDS: AUGMENTIN 875 MG/125 MG 1 TABLET PO (08:36)
[2024-02-05] MEDS: DICLOFENAC 1% TOPICAL GEL 1 GRAM TOPICAL ×2 (08:37→12:30)
[2024-02-05] MEDS: SANTYL OINTMENT 1 APPLIC TOPICAL (08:38)
[2024-02-05] MEDS: LOTRIMIN 1% CREAM 1 APPLIC TOPICAL (08:38)
--- NOTE | 2024-02-05 09:01 | W.PN.HOSP.TC ---
Addendum entered and electronically signed by Wilbert Cabrera MD 02/05/24 17:45:
Yes, unstageable sacral pressure injury, POA
Original Note:
Today's Communication/Plan
-
Discharge planning today.
Assessment / Plan
Assessment / Plan
Physical exam:
General: No acute distress
HEENT: Normocephalic, Atraumatic and Dry Mucous Membranes
Respiratory: Clear to Auscultation; Negative Wheezes, Rales or Rhonchi
Cardiac: Regular Rhythm and S1/S2
GI: Soft, Nontender and Nondistended. Ostomy in place. Erythema surrounding ostomy site improved.
Musculoskeletal: No Clubbing, No Cyanosis and No Edema.
Neuro: Awake, Alert and Oriented, generalized weakness, no gross neurological deficits
Psych: Calm
A/P:
Impression:
Symptomatic worsening hyponatremia--> now up to 131 (from 124)
Recent abdominal wall cellulitis/peristomal cellulitis and candidiasis, on oral antibiotic and topical antifungal
Metabolic acidosis
Leukocytosis, improved
Anemia, slightly downtrend
Increased LFTs, slightly downtrend
Conditions prior to presentation:
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
Recurrent small bowel obstruction
Recent enterococcal bacteremia
Leukocytosis
Atrial fibrillation
Hypotension
Acute kidney injury
Hypoalbuminemia
Hx polymyalgia rheumatica (chronic steroids)
PLAN:
Continue salt tablets
Continue fluid restriction
PT OT eval and recommended home health.
Appreciate nephrology consult
Continue oral antibiotic to finish within 24 hours.
Continue topical antifungal
Continue local care for sacral decubitus
Eliquis will help for DVT prophylaxis
CODE STATUS DNR
Anticipated Discharge: Today
Subjective/Interval History
-
Date of Service: February 05, 2024
Patient denies any new complaints.
Objective Data
-
Labs:
Laboratory Results
02/05/24
06:22
Sodium 131 L
Potassium 5.1
Chloride 105
Carbon Dioxide 18 L
BUN 27 H
Creatinine 0.9
Glucose 83
Calcium 9.0
Vital Signs:
Vital Signs
Temp Pulse Resp BP Pulse Ox
97.6 F 74 18 109/65 95
02/05/24 07:00 02/05/24 08:35 02/05/24 07:00 02/05/24 08:35 02/05/24 07:00
I&O
02/04/24 02/05/24 02/06/24
06:59 06:59 06:59
Intake Total 880 / 880
Output Total 2044
Balance -1165 / -1165
--- NOTE | 2024-02-05 10:55 | CM ---
Received call from Joyce in admissions at [facility] who stated that she will no longer hold patient's bed if she is not going to return. Reviewed chart, met with patient to obtain information for assessment. Patient stated that she was admitted from
[facility] but does want to return home now. Her house is all one level with two steps to enter (there are handrails on each side).
Patient stated that at this point she is requiring a little bit of assistance with her ADLs, personal care, dressing and bathing but between her spouse, VN services, her daughter and hired aides she feels that she will be alright. She explained that
the aides will be there in the evening. She was independent prior to her previous admission with ADLs, personal care, dressing and bathing as well as driving.
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 Her spouse will be assisting with these things upon patient's return.
Patient stated that she is using a walker to assist with her ambulation. She also has a shower chair and grab bars in her shower.
Patient has a prescription plan and uses [facility] for all of her medications.
Her PCP is Dr. David Valdez.
Patient was made aware of indication on behalf of deck specialist for a hospital bed with an air mattress however, she refused.
Made referral to VN. (Patient stated that her daughter is one of their SWs.)
Plan: Case management will continue to follow and assist with discharge planning. Home with family, private aides and VN services through .
[2024-02-05 11:00] VITALS: BP 112/64
--- NOTE | 2024-02-05 11:01 | PN.CDI ---
CDI
- -
CDI:
Physician Documentation Request
Admit Date: 02/03/24 20:51
Dear Doctor Cabrera,
Please review the following and provide your response in the progress notes.
Clinical Indicators:
02/04/24 10:03 - Wound Note
#PMH: ....recent sacral pressure injury
#Wound Location and type/assessment:
#...Patient admitted with: Unstageable sacral pressure injury with mostly yellow slough and surrounding erythema.
Physician documentation of the type and location of wounds is required for compliant documentation. Based on the above clinical findings and your assessment, please provide the following in your progress note:
Yes, unstageable sacral pressure injury, POA
No, unstageable sacral pressure injury
Other(please specify)
1. Location of the ulcer/wound, including laterality.
2. Type (etiology) of ulcer/wound:
- Diabetic ulcer
- Arterial (ischemic) ulcer
- Traumatic wound
- Venous stasis ulcer
- Pressure (decubitus) ulcer
3. If a pressure ulcer, please also include the stage* of the ulcer:
- Stage 1 - Skin intact, non-blanchable redness
- Stage 2 - Partial thickness loss of dermis, includes intact or open blister
- Stage 3 - Full thickness tissue not including bone, tendon or muscle
- Stage 4 - Full thickness tissue loss, including exposed bone, tendon or muscle
Use of terms such as suspected, likely, concern for, or probable (associated with a specific diagnosis that is being evaluated, monitored, or treated as if it exists) are acceptable and can be coded in the inpatient setting, when documented at the
time of discharge.
Thank you,
Yessenia Gonzalez RN BSN CCDS
CDI Specialist
please contact via tiger text
Please use your independent medical judgment in providing your response.
*Source: National Pressure Ulcer Advisory Panel (NPUAP)
--- NOTE | 2024-02-05 11:28 | VNURNOTE ---
Call placed to patient's room, no answer. Call placed to patient's daughter, left message. Daughter is FLIGHT PHYSICIAN through [facility]. Per FLIGHT PHYSICIAN Yesenia, patient is refusing hospital bed with air mattress. Chart reviewed, She would benefit from [facility] wound care.
Referral placed in [facility].
--- NOTE | 2024-02-05 11:43 | W.DCSUMMARY ---
Discharge Summary
Discharge Data
Date of Admission: 02/03/24
Date of Discharge: 02/05/24
-
Pending Results: No
Hospital Course
Patient 83 years old female who had multiple comorbidities and a prolonged healthcare stay between acute care hospital and acute rehab over the last couple of months following ischemic bowel surgical resection, came into the hospital with severe
symptomatic hyponatremia. Nephrology was consulted. Patient was initiated on 3% saline. Her sodium went up appropriately and saline was discontinued. Patient was then placed on fluid restriction and salt tablets. Patient also was seen by ID who
recommended to finish course of oral antibiotics and local antifungal treatment for her mild cellulitis of the abdominal wall. Her sodium continued to be stable and actually went up to 131 today upon discharge. Nephrology cleared her for
discharge. Nephrology also noticed that she is a very high risk for readmission but not much to we could do in terms of interventions at the moment but hopefully sodium remained stable as outpatient. Will have her follow-up BMP as outpatient. I
also went over all her medications with her family upon discharge. She will be discharged in relatively stable condition today.
Discharge duration: 36 minutes
Discharge Plan
-
Patient Disposition: Home with Home Care
Discharge Diagnosis/Procedures: Hyponatremia. Abdominal wall cellulitis. Elevated liver function test. Recent mesenteric ischemia with surgery and end ileostomy.
Diet: Low Cholesterol, 2 Gram Sodium and Restrict fluids to 48 oz
Activity: As tolerated
Blood Work: Please PCP to order CMP, CBC within 1 week
Specialty Instructions: Weigh Daily- Call MD for wt gain/loss 3 lbs overnight/5 lbs in 1 week
Activity Restrictions/Additional Instructions:
Wound Care Instructions
Lower sacral ulcer-clean with saline or soap and water, miconazole powder prn periwound yeasty red skin followed by no sting barrier wipe, Santyl ointment, alginate, silicone border foam, change daily and prn drainage (add adaptic prior to alginate
prn adherent dressing).
Air mattress recommended.
Elevate heels off bed with pillow
Pressure redistributing chair cushion (i.e. Air chair cushion).
Ileostomy pouch changes: Clean with soap and water (do not use a moisturizing soap), rinse with water, pat dry, apply light dusting of 2% OTC Miconazole powder to red rash like skin followed by no sting barrier wipe (allow to dry), apply Holden
cut to fit soft convex wafer #[id number] with an Mariella seal and Philippi high output pouch #[id number] with Philippi ostomy belt #[id number]. Change 2 times a week and as needed for leakage. Can use an overnight bedside Philippi bag #[id number] if needed at home
overnight.
Follow up with your surgeon.
Follow up at wound care center call for an appointment.
Referrals:
David Valdez MD [Family Provider] - in less than 1 week
Angie Sun MD [Active] - in two to four weeks
Temi Tilley MD [Active] - in two to four weeks
Prescriptions:
New
amoxicillin-pot clavulanate 875-125 mg Tablet
1 tab PO Q12 1 Days Qty: 2 0RF
Continued
levothyroxine 75 MCG tablet
75 mcg PO DAILY@0600
Eliquis 2.5 mg Tablet
2.5 mg PO BID
pantoprazole 40 mg Tablet,Delayed Release (Dr/Ec)
40 mg PO DAILY Qty: 14 0RF
ondansetron HCl 4 mg Tablet
4 mg PO Q8HPRN PRN (Reason: NAUSEA/VOMITING)
acetaminophen 325 mg Tablet
650 mg PO Q6HPRN PRN (Reason: mild pain/fever)
lidocaine 4 % Adhesive Patch,Medicated
1 patch TOPICAL DAILY
Patient Comments:
apply to right shoulder
Visbiome 112.5 billion cell Capsule
1 cap PO BID
guaifenesin [Mucinex] 600 mg Tablet Extended Release 12hr
600 mg PO Q12
lidocaine 4 % Adhesive Patch,Medicated
1 patch TOPICAL DAILY
Patient Comments:
apply to lower back
melatonin 3 mg Tablet
3 mg PO HS
sodium bicarbonate 650 mg Tablet
650 mg PO TID
loratadine 10 mg Tablet
10 mg PO DAILY
simethicone 80 mg Tablet,Chewable
80 mg PO QIDPRN PRN (Reason: upset stomach)
sodium chloride 1,000 mg Tablet,Soluble
1,000 mg PO TID Qty: 90 0RF
Santyl 250 unit/gram Ointment
1 applic topical DAILY MDD once a day 30 Days Qty: 30 0RF
clotrimazole [Athlete's Foot (clotrimazole)] 1 % cream
1 applic topical BID Qty: 15 0RF
gabapentin 300 MG capsule
300 mg PO DAILY Qty: 30 0RF
diltiazem HCl 120 MG capsule,extended release 24hr
120 mg PO DAILY Qty: 30 0RF
multivitamin with folic acid [Tab-A-Taz] 1 TABLET tablet
1 tab PO DAILY
Rx Instructions:
400 mcg tab
miconazole nitrate [Miconazorb AF] 2 % Powder
1 applic topical BID 30 Days Qty: 85 0RF
Patient Comments:
apply to skin surrounding ostomy bag prior to bag replacement and underneath both breast
Rx Instructions:
* NEED POWDER* 1 bottle
diclofenac sodium 1 % Gel
0 g topical QID 30 Days Qty: 25 0RF
prednisone 5 mg Tablet
5 mg PO DAILY 30 Days Qty: 30 0RF
midodrine 5 mg Tablet
10 mg PO TID@0700,1300,1800 30 Days Qty: 90 0RF
mirtazapine 7.5 mg Tablet
7.5 mg PO HS 30 Days Qty: 30 0RF
Discontinued
amoxicillin-pot clavulanate 875-125 mg Tablet
1 tab PO Q12 7 Days Qty: 14 0RF
Discharge Orders:
Discharge Patient (As Directed); Ordered 02/05/24
Ordered By: Wilbert Cabrera
Discharge Date and Time
Discharge Date/Time: 02/05/24 13:55
Print Language: MOLDOVAN
--- NOTE | 2024-02-05 11:52 | W.PN.ID1 ---
Date of Service
Date of Service: February 05, 2024
Today's Communication
DC Augmentin.
Assessment / Plan
# Fiorella-stoma cellulitis/candidiasis resolved
- Can dc Augmentin 875mg po bid (day 5)
-Continue topical antifungal
# Leukocytosis resolved
Chief Complaint
-: Cellulitis
Subjective / Review of Systems
Leaving today.
Vital Signs / Physical Exam
Vital Signs
Vital Signs
Temp Pulse Resp BP Pulse Ox
97.3 F 79 16 112/64 98
02/05/24 11:00 02/05/24 11:00 02/05/24 11:00 02/05/24 11:00 02/05/24 11:00
Physical Exam
Gastrointestinal: Soft, Non Tender, Non Distended and Other (ostomy intact, no erythema)
Neurological: AO x 3
Objective Data
Lab Data
Lab Results
02/04/24 06:48
02/05/24 06:22
Estimated Creat Clear 34 ml/min 02/05/24 06:22
Total Bilirubin 1.0 mg/dl (0.2-1.3) 02/04/24 06:47
AST 59 U/L (14-36) H 02/04/24 06:47
ALT 54 U/L (0-35) H 02/04/24 06:47
Alkaline Phosphatase 699 U/L (38-126) H 02/04/24 06:47
Most recent labs reviewed.
Micro Results:
02/03/24 19:48 Urine Culture - Final
Urine
01/29/24 CT a/p: Evaluation markedly limited by lack of intravenous contrast and marked paucity of oral contrast. No gross findings to suggest abnormal focal fluid collection within the abdomen proper. Please note, on the basis of this study, a small
abnormal focal fluid collection cannot be entirely excluded. Apparent recent prior total colectomy with nonobstructed right lower quadrant ileostomy. True pelvis markedly limited by marked beam hardening artifact from right hip arthroplasty. Small
volume dependent free fluid without significant change.
--- NOTE | 2024-02-05 12:04 | W.PN.NEPH.PH ---
Today's Communication / Plan
-
See bold
For discharge on salt tablets and fluid restriction with follow-up BMP next week to PCP
Assessment/Plan
-
IMP:
HYpoantremia
Hyperkalemia
Non gap met acidosis
Anemia
abd wall cellulitis
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
h/o Bilateral pleural effusion/peripheral edema
Paroxysmal atrial fibrillation
elevated LFTs
Polymyalgia rheumatica by [id number]
Hypothyroidism
HTN
Dyslipidemia
Plan:
Hyponatremia improved to 131 sodium after 3% administered last evening
Hyponatremia acute on chronic likely from GI loss and chronic hypotension, we have no further constructive interventions available
I suspect patient will be readmitted within the next couple weeks for ongoing hyponatremia
Add back sodium bicarbonate 650 mg 3 times daily at discharge for metabolic acidosis
but she also has sig high ADH state underlying U osmo 457
U na is low from poor solute intake
maintain salt tab 1gm TID at discharge
primary goal to control GI loss
will need FR 48 ounces/day
K stable for now
cr at baseline at 0.9
BP stable on midodrine
afib, controlled with cardizem,
would obtain BMP and send to primary care doctor next week
-
-
Date of Service: February 05, 2024
CC / HPI / ROS
-
Chief Complaint:
Hyponatremia
History of Present Illness:
Sodium up to 131 status post 3% infusion
Hemodynamically labile on midodrine support
Review of Systems:
Subjectively nonoliguric
No chest pain
No shortness of breath
Labs
-
Labs:
WBC 9.2 10^3/uL (4.8-10.8) 02/04/24 06:48
RBC 2.53 10^6/uL (4.20-5.40) L 02/04/24 06:48
Hgb 8.3 g/dL (12.0-16.0) L 02/04/24 06:48
Hct 25.1 % (37.0-47.0) L 02/04/24 06:48
Plt Count 243 10^3/uL (130-400) 02/04/24 06:48
Sodium 131 mmol/L (135-145) L 02/05/24 06:22
Potassium 5.1 mmol/L (3.5-5.1) 02/05/24 06:22
Chloride 105 mmol/L (98-107) 02/05/24 06:22
Carbon Dioxide 18 mmol/L (22-30) L 02/05/24 06:22
BUN 27 mg/dl (7-17) H 02/05/24 06:22
Creatinine 0.9 mg/dL (0.6-1.0) 02/05/24 06:22
eGFR > 60.00 02/05/24 06:22
Glucose 83 mg/dl (70-99) 02/05/24 06:22
Calcium 9.0 mg/dl (8.4-10.2) 02/05/24 06:22
Albumin 2.7 g/dl (3.5-5.0) L 02/04/24 06:47
Physical Exam
-
Vital Signs:
Vital Signs
Temp Pulse Resp BP Pulse Ox
97.3 F 79 16 112/64 98
02/05/24 11:00 02/05/24 11:00 02/05/24 11:00 02/05/24 11:00 02/05/24 11:00
Cardiovascular:: Regular rate and rhythm
Respiratory:: Bilateral: CTA
Lung Excursion:: Normal
Abdomen:: Nontender and Soft
Bowel Sounds:: Normal
Extremity Edema:: None: Bilateral:
Keith Catheter: No
Other Findings::
GI: Ostomy
--- NOTE | 2024-02-05 12:27 | VNURNOTE ---
Spoke to daughter Theresa. In agreement with [facility]. Confirmed with [facility] office referral has been received and SOC for tomorrow.
--- NOTE | 2024-02-05 13:46 | PTCARENOTE ---
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 As per pharmacist patient has one waiting for her.
== END 2024-02-05 13:55 | disposition home health service (06) | DRG 641 ==
LOC: 3 WEST ACU 20:51
PROVIDERS: Specialist; ADMITTING PHYSICIAN Hospitalist; CONSULT PHYSICIAN Internal Medicine; CONSULT PHYSICIAN Student in an Organized Health Care Education/Training Program; EMERGENCY PHYSICIAN Emergency Medicine; FAMILY PHYSICIAN Family Medicine
DX: E87.1 Hypo-osmolality and hyponatremia (principal); L03.311 Cellulitis of abdominal wall; N17.9 Acute kidney failure, unspecified; R79.89 Other specified abnormal findings of blood chemistry; L89.150 Pressure ulcer of sacral region, unstageable; E03.9 Hypothyroidism, unspecified; I48.0 Paroxysmal atrial fibrillation; I10 Essential (primary) hypertension; E87.20 Acidosis, unspecified; D64.9 Anemia, unspecified; M35.3 Polymyalgia rheumatica; B37.9 Candidiasis, unspecified; E87.5 Hyperkalemia; Z79.01 Long term (current) use of anticoagulants
CPT/HCPCS: 80048; 80053; 81003; 81015; 82248; 83935; 84300; 85025; 85027; 87086; 97116; 97162; 97166; 99291

== ENCOUNTER → 2024-02-12 11:00 | Outpatient (REF) | payer MEDICARE, BC, SELFPAY ==
[2024-02-12 11:48] LABS: Hemoglobin 10.1 g/dL (12.0-16.0); Mean Corp Hgb Conc. 32.6 g/dL (33.0-37.0); Mean Corpuscular Volume 101.3 fL (81.0-99.0); Mean Platelet Volume 9.6 fL (7.4-10.4); Platelet Count 528 10^3/uL (130-400); Red Blood Cell Count 3.06 10^6/uL (4.20-5.40); Red Cell Dist. Width 16.7 % (11.5-14.5); White Blood Cell Count 12.2 10^3/uL (4.8-10.8)
[2024-02-12 12:27] LABS: ALT (SGPT) 62 U/L (0-35); AST (SGOT) 68 U/L (14-36); Blood Urea Nitrogen 37 mg/dl (7-17); Calcium 10.6 mg/dl (8.4-10.2); Carbon Dioxide 16 mmol/L (22-30); Chloride 104 mmol/L (98-107); Glucose 90 mg/dl (70-99); Potassium 5.7 mmol/L (3.5-5.1); Sodium 134 mmol/L (135-145); Total Protein 7.5 g/dl (6.3-8.2); eGFR 34.15
[2024-02-12 12:39] LABS: Alkaline Phosphatase 1041 U/L (38-126)
== END ==
LOC: REG 11:00
PROVIDERS: ATTENDING PHYSICIAN Family Medicine; REFERRING PHYSICIAN Surgery
DX: D64.9 Anemia, unspecified (principal); E87.1 Hypo-osmolality and hyponatremia; L89.153 Pressure ulcer of sacral region, stage 3
CPT/HCPCS: 36415; 72190; 80053; 85027

== ENCOUNTER → 2024-02-12 11:55 | Outpatient (REF) | payer MEDICARE, BC, SELFPAY | LOC: WOUND 11:55 | PROVIDERS: ATTENDING PHYSICIAN Surgery; FAMILY PHYSICIAN Family Medicine | DX: L89.153 Pressure ulcer of sacral region, stage 3 (principal); R62.7 Adult failure to thrive; I48.91 Unspecified atrial fibrillation; I10 Essential (primary) hypertension; E78.2 Mixed hyperlipidemia; D68.59 Other primary thrombophilia | CPT/HCPCS: 99204 ==

== ENCOUNTER → 2024-02-19 09:36 | Outpatient (REF) | payer MEDICARE, BC, SELFPAY | LOC: WOUND 09:36 | PROVIDERS: ATTENDING PHYSICIAN Surgery; FAMILY PHYSICIAN Family Medicine | DX: L89.153 Pressure ulcer of sacral region, stage 3 (principal); R62.7 Adult failure to thrive; I48.91 Unspecified atrial fibrillation; I10 Essential (primary) hypertension; E78.2 Mixed hyperlipidemia; D68.59 Other primary thrombophilia | CPT/HCPCS: 11042 ==

== ENCOUNTER → 2024-02-19 10:54 | Outpatient (REF) | payer MEDICARE, BC, SELFPAY ==
[2024-02-19 12:02] LABS: Hematocrit 31.3 % (37.0-47.0); Hemoglobin 10.2 g/dL (12.0-16.0); Mean Corp Hgb Conc. 32.6 g/dL (33.0-37.0); Mean Corpuscular Hgb 32.5 pg (27.0-31.0); Mean Corpuscular Volume 99.7 fL (81.0-99.0); Mean Platelet Volume 10.3 fL (7.4-10.4); Platelet Count 449 10^3/uL (130-400); Red Blood Cell Count 3.14 10^6/uL (4.20-5.40); Red Cell Dist. Width 16.2 % (11.5-14.5); White Blood Cell Count 15.5 10^3/uL (4.8-10.8)
[2024-02-19 12:26] LABS: Erythrocyte Sed Rate 73 mm/hour (0-20)
[2024-02-19 12:35] LABS: ALT (SGPT) 77 U/L (0-35); AST (SGOT) 83 U/L (14-36); Albumin 4.2 g/dl (3.5-5.0); Alkaline Phosphatase 972 U/L (38-126); Blood Urea Nitrogen 61 mg/dl (7-17); Carbon Dioxide 19 mmol/L (22-30); Chloride 98 mmol/L (98-107); Glucose 129 mg/dl (70-99); Potassium 4.9 mmol/L (3.5-5.1); Sodium 132 mmol/L (135-145); Total Bilirubin 0.6 mg/dl (0.2-1.3); Total Protein 7.5 g/dl (6.3-8.2); eGFR 31.61
[2024-02-19 12:39] LABS: C-Reactive Protein < 5.00 mg/L (0.0-10.00)
== END ==
LOC: REG 10:54
PROVIDERS: ATTENDING PHYSICIAN Family Medicine
DX: E87.1 Hypo-osmolality and hyponatremia (principal); M35.3 Polymyalgia rheumatica; R62.7 Adult failure to thrive
CPT/HCPCS: 36415; 80053; 85027; 85652; 86140

== ENCOUNTER → 2024-03-06 09:08 | Outpatient (REF) | payer MEDICARE, BC, SELFPAY ==
[2024-03-06 11:10] LABS: Osmolality Serum 305 mOsm/kg (275-300)
[2024-03-06 11:20] LABS: Albumin 4.5 g/dl (3.5-5.0); Blood Urea Nitrogen 58 mg/dl (7-17); Calcium 10.6 mg/dl (8.4-10.2); Carbon Dioxide 16 mmol/L (22-30); Chloride 105 mmol/L (98-107); Glucose 92 mg/dl (70-99); Phosphorus 4.6 mg/dl (2.5-4.5); Potassium 4.9 mmol/L (3.5-5.1); Sodium 131 mmol/L (135-145); eGFR 31.61
[2024-03-06 12:27] LABS: Urine Albumin Trace (Neg - Trace); Urine Bilirubin Negative (Negative); Urine Character Slightly Cloudy (Clear); Urine Color Yellow; Urine Glucose Negative (Negative); Urine Ketone Negative (Negative); Urine Leukocyte 2+ (Negative); Urine Nitrite Negative (Negative); Urine Occult Blood 4+ (Negative); Urine Urobilinogen Negative (Neg - 1+)
[2024-03-06 12:49] LABS: Urine Mucus Few
[2024-03-06 12:50] LABS: Urine Granular Cast 0-2 /LPF (0); Urine Hyaline Cast 0-2 /LPF (0-2)
[2024-03-06 12:51] LABS: Urine Bacteria Moderate (Negative); Urine White Cell >100 /HPF (0-5); Urine Yeast Moderate (Negative)
[2024-03-06 13:49] LABS: Urine Sodium < 5 mmol/L (30-90)
[2024-03-06 14:17] LABS: Osmolality Urine 550 mOsm/kg (300-900)
== END ==
LOC: REG 09:08
PROVIDERS: ATTENDING PHYSICIAN Internal Medicine; FAMILY PHYSICIAN Family Medicine
DX: N17.9 Acute kidney failure, unspecified (principal); E87.1 Hypo-osmolality and hyponatremia; I10 Essential (primary) hypertension; E03.9 Hypothyroidism, unspecified; E83.51 Hypocalcemia
CPT/HCPCS: 36415; 80069; 81003; 81015; 82570; 83930; 83935; 84300

== ENCOUNTER → 2024-03-06 09:15 | Outpatient (REF) | payer MEDICARE, BC, SELFPAY | LOC: WOUND 09:15 | PROVIDERS: ATTENDING PHYSICIAN Surgery; FAMILY PHYSICIAN Family Medicine | DX: L89.153 Pressure ulcer of sacral region, stage 3 (principal); R62.7 Adult failure to thrive; I48.91 Unspecified atrial fibrillation; I10 Essential (primary) hypertension; E78.2 Mixed hyperlipidemia; D68.59 Other primary thrombophilia | CPT/HCPCS: 99214 ==

== ENCOUNTER → 2024-03-13 09:22 | Outpatient (REF) | payer MEDICARE, BC, SELFPAY | LOC: WOUND 09:22 | PROVIDERS: ATTENDING PHYSICIAN Surgery; FAMILY PHYSICIAN Family Medicine | DX: L89.153 Pressure ulcer of sacral region, stage 3 (principal); R62.7 Adult failure to thrive; I48.91 Unspecified atrial fibrillation; I10 Essential (primary) hypertension; E78.2 Mixed hyperlipidemia; D68.59 Other primary thrombophilia | CPT/HCPCS: 99212 ==

== ENCOUNTER → 2024-03-27 10:57 | Outpatient (REF) | payer MEDICARE, BC, SELFPAY | LOC: WOUND 10:57 | PROVIDERS: ATTENDING PHYSICIAN Surgery; FAMILY PHYSICIAN Family Medicine | DX: L89.153 Pressure ulcer of sacral region, stage 3 (principal); R62.7 Adult failure to thrive; I48.91 Unspecified atrial fibrillation; I10 Essential (primary) hypertension; E78.2 Mixed hyperlipidemia; D68.59 Other primary thrombophilia | CPT/HCPCS: 11042 ==

== ENCOUNTER → 2024-04-21 09:12 | Outpatient (REF) | payer MEDICARE, BC, SELFPAY ==
[2024-04-21 09:59] LABS: % Basophils 0.5 % (0-2); % Eosinophils 1.1 % (0-6); % Immature Granulocytes 1.6 % (0-0.5); % Lymphocytes 6.7 % (20.5-51.1); % Monocytes 8.7 % (1.7-9.3); % Neutrophils 81.4 % (42.2-75.2); Absolute Basophils 0.1 10^3/uL (0-0.2); Absolute Eosinophils 0.1 10^3/uL (0-0.7); Absolute Immature Granulocytes 0.2 10^3/uL (0-0.05); Absolute Lymphocytes 0.7 10^3/uL (1.2-3.4); Absolute Monocytes 0.9 10^3/uL (0.1-0.6); Absolute Neutrophils 8.6 10^3/uL (1.4-6.5); Hematocrit 36.4 % (37.0-47.0); Hemoglobin 11.5 g/dL (12.0-16.0); Mean Corp Hgb Conc. 31.6 g/dL (33.0-37.0); Mean Corpuscular Hgb 30.4 pg (27.0-31.0); Mean Corpuscular Volume 96.3 fL (81.0-99.0); Mean Platelet Volume 10.8 fL (7.4-10.4); Nucleated Red Blood Cells % 0 %; Platelet Count 356 10^3/uL (130-400); Red Blood Cell Count 3.78 10^6/uL (4.20-5.40); Red Cell Dist. Width 16.2 % (11.5-14.5); White Blood Cell Count 10.6 10^3/uL (4.8-10.8)
[2024-04-21 10:15] LABS: Blood Urea Nitrogen 51 mg/dl (7-17); Calcium 10.1 mg/dl (8.4-10.2); Carbon Dioxide 22 mmol/L (22-30); Chloride 107 mmol/L (98-107); Glucose 90 mg/dl (70-99); Phosphorus 3.8 mg/dl (2.5-4.5); Potassium 5.5 mmol/L (3.5-5.1); Sodium 136 mmol/L (135-145); eGFR 40.55
== END ==
LOC: REG 09:12
PROVIDERS: ATTENDING PHYSICIAN Internal Medicine; FAMILY PHYSICIAN Family Medicine
DX: I10 Essential (primary) hypertension (principal); E87.1 Hypo-osmolality and hyponatremia; R78.81 Bacteremia; N17.9 Acute kidney failure, unspecified; I48.91 Unspecified atrial fibrillation
CPT/HCPCS: 36415; 80069; 85025

== ENCOUNTER → 2024-04-21 09:43 | Outpatient (REF) | payer MEDICARE, BC, SELFPAY | LOC: MRI 3T 09:43 | PROVIDERS: ATTENDING PHYSICIAN Surgery; FAMILY PHYSICIAN Family Medicine | DX: L89.153 Pressure ulcer of sacral region, stage 3 (principal) | CPT/HCPCS: 72195 ==

== ENCOUNTER → 2024-04-22 11:32 | Outpatient (REF) | payer MEDICARE, BC, SELFPAY | LOC: WOUND 11:32 | PROVIDERS: ATTENDING PHYSICIAN Surgery; FAMILY PHYSICIAN Family Medicine; REFERRING PHYSICIAN Student in an Organized Health Care Education/Training Program | DX: L89.153 Pressure ulcer of sacral region, stage 3 (principal); R62.7 Adult failure to thrive; I48.91 Unspecified atrial fibrillation; I10 Essential (primary) hypertension; E78.2 Mixed hyperlipidemia; D68.59 Other primary thrombophilia | CPT/HCPCS: 87070; 87075; 87147; 87186; 87205; 99213 ==

== ENCOUNTER → 2024-05-06 10:34 | Outpatient (REF) | payer MEDICARE, BC, SELFPAY ==
--- NOTE | 2024-05-08 12:30 | WOUNDNOTE ---
[facility] RN note: FaceTimed with VN Tracy Lemus, patient's daughter Theresa and [facility] RN Joyce Philippe to trouble shoot why patient's ileostomy appliance is leaking. Tracy was with patient during the FaceTime call. The patient's ostomy appliance
wear time has varied. Patient's stoma is 1 inch and budded. There is a skin crease across her abdomen approximately 1 inch above the stoma. Peristomal skin is very red. She has been using Holden wafer # [id number], Holden moldable ring and
Holden pouch #[id number] without an ostomy belt. She had used the high out put pouches before. She showers about 4 times a week and removes the wafer prior to VN visits. The changes her appliance between VN visits when appliance leaks.
Instructed patient to try to wear the ostomy belt which helps the convex appliance stay on better/longer. Also suggested to go back to the high output pouches with next order. Patient gave verbal permission to order samples from ostomy
manufacturers. t/c Holden and ordered Ceraplus 1 inch pre cut convex wafer # [id number] (firm convexity) and 1 inch convex soft convex wafer # [id number] with pouch#[id number]. Also ordered 1 piece 1 inch precut pouch #[id number]. t/c [employer]vate[employer] and ordered samples of
pre cut 1 inch convex 1 piece and 2 piece (with high out put pouch for 2 piece), Mariella seal s and ostomy belt. Tracy later called to state while she watched to the appliance change he didn't mold the moldable ring and did not press the
appliance while applying and Tracy stated she reinstructed proper way to apply the moldable ring and pouch.
--- NOTE | 2024-05-08 12:32 | WOUNDNOTE ---
[facility] RN note: FaceTimed with MARY Tracy Lemus, patient' daughter Theresa and [facility] RN Joyce Philippe to trouble shoot why patient's ileostomy appliance is leaking. The wear time has varied. Patient's stoma is 1 inch and budded. There is a skin
crease approximatley 1 inch above the stoma. Peristomal skin is very red. She has been using Fords wafer # [id number], Holden moldable ring and Holden pouch #[id number]
== END ==
LOC: WOUND 10:34
PROVIDERS: ATTENDING PHYSICIAN Surgery; FAMILY PHYSICIAN Family Medicine
DX: L89.153 Pressure ulcer of sacral region, stage 3 (principal); R62.7 Adult failure to thrive; I48.91 Unspecified atrial fibrillation; I10 Essential (primary) hypertension; E78.2 Mixed hyperlipidemia; D68.59 Other primary thrombophilia
CPT/HCPCS: 11042; 99213

== ENCOUNTER 2024-05-10 21:58 | Inpatient (IN) | payer MEDICARE, BC, SELFPAY ==
[2024-05-10 17:12] VITALS: BP 114/82
[2024-05-10 17:14] VITALS: BP 114/82
[2024-05-10 17:27] VITALS: BMI 15.8
[2024-05-10 17:37] LABS: % Basophils 0.9 % (0-2); % Eosinophils 3.5 % (0-6); % Immature Granulocytes 1.3 % (0-0.5); % Lymphocytes 9.8 % (20.5-51.1); % Monocytes 12.2 % (1.7-9.3); % Neutrophils 72.3 % (42.2-75.2); Absolute Basophils 0.1 10^3/uL (0-0.2); Absolute Eosinophils 0.4 10^3/uL (0-0.7); Absolute Immature Granulocytes 0.1 10^3/uL (0-0.05); Absolute Monocytes 1.2 10^3/uL (0.1-0.6); Absolute Neutrophils 7.2 10^3/uL (1.4-6.5); Hematocrit 34.5 % (37.0-47.0); Hemoglobin 11.3 g/dL (12.0-16.0); Mean Corp Hgb Conc. 32.8 g/dL (33.0-37.0); Mean Corpuscular Hgb 29.4 pg (27.0-31.0); Mean Corpuscular Volume 89.6 fL (81.0-99.0); Mean Platelet Volume 10.5 fL (7.4-10.4); Nucleated Red Blood Cells % 0 %; Platelet Count 329 10^3/uL (130-400); Red Blood Cell Count 3.85 10^6/uL (4.20-5.40); Red Cell Dist. Width 16.5 % (11.5-14.5); White Blood Cell Count 9.9 10^3/uL (4.8-10.8)
--- NOTE | 2024-05-10 17:57 | ED.GENMED ---
History of Present Illness
General
Chief Complaint: Weakness
Source: patient and ambulance crew
Exam Limitations: none
Time Seen by Provider: 05/10/24 17:54
Nursing documentation reviewed up to this point in time: agreed with
History of Present Illness
History of Present Illness:
83-year-old female presents emergency room complaining of increased weakness and confusion. Her blood pressure was in the 80s, and her visiting nurse called EMS due to her fatigue and hypotension. She arrives with systolic blood pressure of 98.
Sinus bradycardia. She was recently diagnosed with osteomyelitis, and was referred to infectious disease, which she has scheduled for next week. 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
Past History
Past History
ED Past Medical History: Arrthythmia (afib), HTN, Hypothyroidism and Other (Bowel resection, mesenteric ischemia); Negative CVA
ED Past Surgical History: Bowel resection
Social History
Tobacco: Former smoker
Alcohol: Occasional
Drug: None
Personal:
Living: with family
Employment: Retired
Family History
Family History: Other (nonContributory)
Review of Systems
Review of Systems
Allergies reviewed?: Yes
All Other Systems: Not applicable
Constitutional: Reports fatigue
EENT: Reports no symptoms
Respiratory: Reports no symptoms
Cardiac: Reports no symptoms
ABD/GI: Reports no symptoms
: Reports no symptoms
Musculoskeletal: Reports no symptoms
Skin: Reports no symptoms
Neurological: Reports weakness and other (Confusion)
Endocrine: Reports no symptoms
Hematologic/Lymphatic: Reports no symptoms
Psychiatric: Reports no symptoms
Phy Exam
Physical Exam
Physical Exam:
Physical Exam
General: Afebrile
Neck: supple. no meningeal signs. normal posterior pharynx
Heart: s1/s2 regular rate and rhythm, no murmur. equal radial
pulses.
HEENT: Pupils equal round reactive to light, EOMI
Lungs: no acute respiratory distress. clear bilaterally
Abdomen: normal bowel sounds. not tender. no CVAT, ileostomy
Neuro: alert and oriented. no focal neurological deficits cranial nerves II through XII intact
Skin: no rash, decubitus ulcer, sacral, stage IV, no drainage
Psychiatric: well kept. interactive and cooperative
Extremities: no edema. good distal pulses
Course
Orders/Labs/Results
Orders:
Orders
05/10/24 Breakfast
Regular
05/10/24 17:19
EKG [Electrocardiogram (*1)] Urgent
Reason for Study: Fatigue / Weakness
EKG- Treatment ONCE
05/10/24 17:25
CBC/With Diff [Complete Blood Count/With Diff] Urgent
Comprehensive Metabolic Panel Urgent
05/10/24 18:12
CT Head W/o Iv Contrast Urgent
Comment:
Reason For Exam: confusion
05/10/24 18:13
Bedside Glucose- Treatment DIRECTED
Bedside Glucose- Treatment ONCE
Cardiac Monitoring- Treatment ONCE
Dextrose 50%-Water [Dextrose 50% Syringe] 12.5 grams IV [id number] PRN
Dextrose 50%-Water [Dextrose 50% Syringe] 25 grams IV NOW STA
Insulin Human Regular [Novolin R] 5 units IV NOW STA
05/10/24 19:27
0.9% Sodium Chloride 1000 ml [Nss] 1,000 ml IV BOLUS
05/10/24 21:17
Admit/Transfer Patient As Directed
Co-Sign Provider:
Level of Care: Inpatient admission
Assign to:: Telemetry
Physician / Group: Dequan
Diagnosis: CHELSEA, Hyperkalemia, Hyponatremia, Cellulitis
Reason for Telemetry: Arrhythmia
Date to Stop Telemetry: 05/13/24
Time to Stop Telemetry: 11:00
Reason for Hospitalization: CHELSEA, Hyperkalemia, Hyponatremia, Cellulitis
Expected length of stay greater than two midnights?: Yes
ELOS- Estimated Length of Stay in days: 4
I certify the patient meets the requirements for IP care: Yes
PRN Pain Medication Management As Directed
May give lesser potent ordered pain med per pt: Yes
preference::
Protocol:: Medication orders for pain may be administered in a
manner that supports deferring to patient preference
when the pt is:
- Requesting an ordered lesser potent pain medication.
Least to most potent pain medications are defined
as: acetaminophen < NSAID < tramadol < opioids
(morphine, oxycodone, hydromorphone).
- Requesting a lesser dose of the same medication IF
ORDERED.
- Requesting a less intrusive route of administration
if both routes are prescribed by the provider (PO <
IV).
05/10/24 21:19
Code Status As Directed
Resuscitation Status: Do not resuscitate
Reached after discussion with pt or family/Healthcare POA: Yes
05/10/24 21:20
DNR Bracelet Application ONCE
05/10/24 21:32
CXR2 [CR Chest - 2 Views ] Urgent
Comment:
Reason For Exam: Abnormal lung sounds
05/10/24 21:45
Potassium Urgent
Comment: draw 2 hours after regular insulin IV administration
05/10/24 22:04
Acetaminophen [Tylenol] 650 mg PO Q6HPRN PRN
Dextrose 5%/Water 1000 ml [D5w] 1,000 ml Sodium Bicarbonate 150 meq IV 100 mls/hr
05/10/24 22:04
ORTHOPEDIC CONSULT Routine
Consulting Provider: Aleksandar Martin
Was physician already notified: Yes
Reason for consult: R Shoulder Pain / Tendinitis
WOUND/OSTOMY CONSULT Routine
Reason for Consult: Sacral Wound / Ileostomy
Activity As Directed
Activity Level: Ambulate
With Assistance
Bladder Scan As Directed
Follow Bladder Retention/Intermittent Cath Algorithm?: Yes
PRN if no void in __ hours: 6
Frequency: Per Retention Algorithm
If Bladder Scan Result >: 400
then:: Straight cath
EKG with chest pain [ECG as needed] As Directed
ECG as needed for:: Chest Pain
I/O [Intake/ Output] As Directed
Frequency: Per unit guidelines
Neurological Checks As Directed
Frequency: q4h
Orthostatic Vital Signs As Directed
Orthostatic VS Frequency: BID
Pneumatic Compression Sleeves As Directed
Type: Knee high
Straight Cath As Directed
Frequency: Per Retention Algorithm
Additional Instructions: straight cath as needed per acute urinary retention algorithm for 24 hrs
Additional Instructions: for bladder scan greater than 400 mL
Vital Signs As Directed
Frequency: Per unit guidelines
Weight As Directed
Frequency: Daily
Oxygen Therapy [O2 Therapy] [RESP] Routine
Titrate/Wean O2 to maintain O2 sat greater than (%): 94
Ot Eval And Treat Routine
PT Consult [Pt Eval And Treat] Routine
Activity Level: Ambulate
With Assistance
DX Deep Vein Thrombosis Video Routine
05/10/24 23:01
TSH Reflex To Free T4 Routine
05/11/24 06:00
Basic Metabolic Panel IN AM
Complete Blood Count/No Diff IN AM
MR Brain Without Contrast IN AM
Comment:
Reason For Exam: CVA
Recent pill cam endoscopy?: No
Levothyroxine [Synthroid] 75 mcg PO DAILY@0600
05/11/24 07:00
Midodrine [ProAmatine] 10 mg PO TID@0700,1300,1800
05/11/24 08:00
Aspirin Chewable [Low Strength Aspirin] 81 mg PO DAILY
Gabapentin [Neurontin] 100 mg PO TID
Prednisone [Deltasone] 5 mg PO DAILY
05/13/24 11:00
DC Protocol for Telemetry ONCE
Abnormal Lab Results
05/10/24 05/10/24 05/10/24
17:25 21:34 21:45
RBC 3.85 L 10^6/uL
(4.20-5.40)
Hgb 11.3 L g/dL
(12.0-16.0)
Hct 34.5 L %
(37.0-47.0)
MCHC 32.8 L g/dL
(33.0-37.0)
RDW 16.5 H %
(11.5-14.5)
MPV 10.5 H fL
(7.4-10.4)
Abs Immat Gran (auto) 0.1 H 10^3/uL
(0-0.05)
Absolute Neuts (auto) 7.2 H 10^3/uL
(1.4-6.5)
Absolute Lymphs (auto) 1.0 L 10^3/uL
(1.2-3.4)
Absolute Monos (auto) 1.2 H 10^3/uL
(0.1-0.6)
Immature Gran % 1.3 H %
(0-0.5)
Lymphocytes % 9.8 L %
(20.5-51.1)
Monocytes % 12.2 H %
(1.7-9.3)
Sodium 130 L mmol/L
(135-145)
Potassium 6.6 H* mmol/L 5.2 H mmol/L
(3.5-5.1) (3.5-5.1)
Carbon Dioxide 12 L* mmol/L
(22-30)
BUN 88 H mg/dl
(7-17)
Creatinine 2.1 H mg/dL
(0.6-1.0)
AST 79 H U/L
(14-36)
ALT 87 H U/L
(0-35)
Alkaline Phosphatase 460 H U/L
(38-126)
POC Glucose 104 H mg/dl
(70-99)
05/10/24 17:25
05/10/24 21:45
Vital Signs
Initial and Last Documented VS:
Initial Vital Signs
Pulse Resp BP Pulse Ox
70 18 114/82 97
05/10/24 17:12 05/10/24 17:12 05/10/24 17:12 05/10/24 17:12
Last Documented Vital Signs
Temp Pulse Resp BP Pulse Ox
97.3 F 75 18 95/57 98
05/10/24 23:15 05/10/24 23:15 05/10/24 23:15 05/10/24 23:15 05/10/24 23:15
MDM/Problems Addressed
Differential Diagnosis Includes:
CVA, acute renal failure, hyponatremia, hyperkalemia
MDM/Problems Addressed:
83-year-old female with CVA, acute renal failure, hyponatremia, hyperkalemia
Chronic conditions affecting care: Arrhythmia
Acute Exacerbation and/or Progression of Chronic Illness: Arrhythmia
*Radiology
Radiology exam reviewed: radiology read reviewed (CT head shows subacute ischemic watershed infarct at junction of right frontal lobe and right parietal lobe)
*Pulse Oximetry
Patient hypoxic: no
*EKG
Interpreted by ED Provider?: Yes
EKG Intrepretation Date: 05/10/24
EKG Intrepretation Time: 17:42
Interpretation: abnormal
Comparison EKG: changes noted
Heart Rate: 71
Rate: normal
Rhythm: sinus
Refugio: normal axis
Interval: first degree heart block
QRS Pattern: normal QRS
Ischemia: no ischemia
*Extrusion Bender Interpretation
Rate: normal
Interpretation: normal
Heart Rate: 70
Rhythm: sinus
*Critical Care Note
Total Time (30-74mins, 75-104mins- exclusive of procedures): 30
comment:
Critical care statement: A total of 30 minutes of critical care time was provided for this patient. This includes management of unstable vital signs, evaluation of the patient at bedside, reviewing the patient's pertinent medical records, discussion
with consultants, review of old EKGs and review of pertinent medical records. This time with separate from time utilized to perform the aforementioned documented procedures
Data Reviewed
Review of Other/Old Records Reveals: Labs (prior potassium 5.5 and creatinine 1.3 on 04/21/2024)
Source: records
Patient Management
Social determinants of health affecting care: Living situation
Discussion with other providers: Hospitalist
Escalation/DeEscalation of care consider admission/obs:
admit indicated
ED Attending Note
-
Portions of this chart may have been created with voice recognition software.� Occasional wrong word or��sound alike� substitutions may have occurred due to the inherent limitations of voice recognition software.
Discharge Plan
Departure
Patient Disposition: Admit
Date of Disposition: 05/10/24
Time of Disposition: 19:28
Admit to: IMU
Presentation/result/management discussed w/ accepting MD/DO: Hospitalist
Patient with high blood pressure during this ER visit?: No
Discharge Problem:
Acute cerebrovascular accident (CVA), Acute hyperkalemia, Acute renal failure, Osteomyelitis of sacrum
Interventions
Interventions:
*Risk Screen - Suicide Last Done: 05/10/24 22:15
*General Assessment Last Done: 05/10/24 17:20
*Neglect/Abuse Screening Last Done: 05/10/24 17:27
ED- Fall Risk Assessment Last Done: 05/10/24 17:29
*ED COVID-19 Vaccine History Last Done: 05/10/24 22:15
*Nursing Disposition Last Done: 05/10/24 22:24
ED- Cardiac Assessment Last Done: 05/10/24 17:29
ED- Neurological Assessment Last Done: 05/10/24 17:29
ED- Pulmonary Assessment Last Done: 05/10/24 17:29
Discharge Date and Time
Discharge Date/Time: 05/10/24 22:25
[2024-05-10 18:00] VITALS: BP 125/75
[2024-05-10 18:01] LABS: ALT (SGPT) 87 U/L (0-35); AST (SGOT) 79 U/L (14-36); Alkaline Phosphatase 460 U/L (38-126); Blood Urea Nitrogen 88 mg/dl (7-17); Calcium 9.8 mg/dl (8.4-10.2); Carbon Dioxide 12 mmol/L (22-30); Chloride 107 mmol/L (98-107); Estimated Creatinine Clearance 13 ml/min; Glucose 88 mg/dl (70-99); Potassium 6.6 mmol/L (3.5-5.1); Sodium 130 mmol/L (135-145); Total Bilirubin 0.6 mg/dl (0.2-1.3); Total Protein 6.7 g/dl (6.3-8.2); eGFR 22.81
[2024-05-10 18:29] LABS: Glucose - Point of Care 79 mg/dl (70-99)
[2024-05-10] MEDS: NOVOLIN R 5 UNITS IV (18:33)
[2024-05-10] MEDS: DEXTROSE 50% SYRINGE 25 GRAMS IV (18:37)
[2024-05-10 20:00] VITALS: BP 115/71
--- NOTE | 2024-05-10 20:18 | HPS.HSE ---
Family Physician
-
Family Physician: David Valdez
Chief Complaint
-
Weakness, Hypotension
History of Present Illness
Patient is an 83y F with PMH significant for mesenteric ischemia, paroxysmal A-Fib and hypertension who presents to ED complaining of generalized weakness. Patient has complicated recent history beginning with mesenteric ischemia in December 2023
resulting in subtotal colectomy / ileostomy formation. Her medical issues since that time have included development of sacral wound and suspected underlying osteomyelitis, persistent hyponatremia, skin irritation / fungal infection surrounding
ostomy, etc.
Patient states that she has very poor PO intake since at least November of this year.
She has been ambulating at home with / without use of a cane.
For the past several days, patient has been extremely fatigued with increased sleep, generalized weakness, etc.
Today she was unable to stand or ambulate at all. She denies any focal issues - but complains of generalized / all over weakness.
Patient was evaluated by VN today and found to have low BP (systolic in the 80s) and was advised to present to the ED for further evaluation.
Patient denies fevers / chills, N/V, urinary complaints, etc.
Family notes multiple med changes in the past 2 weeks including: change from Eliquis to ASA, Advil (1-2 tabs daily), decreased prednisone to 5mg daily.
Medical History
Past Medical History
Past Medical History: Reports Other
Additional Past Medical History:
Hypertension - now Hypotension
Paroxysmal Atrial Fibrillation
ASCVD / Mesenteric Ischemia
Hypothyroidism
Hyponatremia
Trigeminal Neuralgia
Lumbar DDD
Sacral Wound +/- Osteomyelitis
Diverticular Disease
Past Surgical History: Reports Other
Additional Past Surgical History:
Subtotal Colectomy / Ileostomy Formation (November 2023)
Right SIMONE
Appendectomy
PVI Ablation
Social History
Tobacco: Non-smoker
Alcohol: None
Drug: None
Personal:
Living: With Family
Family History
Family History: Not pertinent
Allergies / Home Medications
Allergies reflects when Allergies were last updated in [facility].
Home Medications with original date entered in [facility]
Allergy/Medication List:
Allergies
Allergy/AdvReac Type Severity Reaction Status Date / Time
amlodipine Allergy Nausea Verified 02/03/24 19:54
doxycycline Allergy Hives Verified 02/03/24 19:53
sulfamethoxazole Allergy Rash Verified 02/03/24 19:53
[From Bactrim]
trimethoprim [From Bactrim] Allergy Rash Verified 02/03/24 19:53
hydrocodone [From Vicodin] AdvReac Vomiting Verified 02/03/24 19:52
metoprolol [From Lopressor] AdvReac Dizzy Verified 02/03/24 19:52
Home Medications
diltiazem HCl 120 mg capsule,extended release 24 hr 120 mg PO DAILY #30 caps 03/24/21
gabapentin 300 mg capsule 300 mg PO DAILY #30 caps 03/24/21
levothyroxine 75 mcg tablet 75 mcg PO DAILY@0600 Thyroid 12/26/23
ondansetron HCl 4 mg tablet 4 mg PO Q8HPRN PRN NAUSEA/VOMITING 01/04/24
miconazole nitrate 2 % topical powder (Miconazorb AF) 1 applic topical BID Skin issues 30 days #85 grams 02/01/24
midodrine 5 mg tablet 10 mg (2 x 5 mg) PO TID@0700,1300,1800 low blood pressure 30 days #90 tabs 02/01/24
mirtazapine 7.5 mg tablet 7.5 mg PO HS insomnia 30 days #30 tabs 02/01/24
prednisone 5 mg tablet 5 mg PO DAILY arthritis 30 days #30 tabs 02/01/24
acetaminophen 325 mg tablet 650 mg PO Q6HPRN PRN mild pain/fever 02/03/24
aspirin 81 mg chewable tablet 81 mg PO DAILY 05/10/24
clotrimazole 1 % topical cream (Athlete's Foot (clotrimazole)) 1 applic topical PRN PRN ostomy 05/10/24
diclofenac sodium 1 % topical gel 0 g topical QIDPRN PRN right shoulder pain 05/10/24
ketoconazole 2 % topical cream 1 applic topical BID sacral wound 05/10/24
Review of Systems
-
History Source: Patient
A 12 point ROS was completed and negative except as noted: Yes
Constitutional: Reports Fatigue; Denies Fever or Chills
EENT: Denies Sore Throat
Respiratory: Denies Cough or Trouble Breathing
Cardiac: Denies Chest Pain or Palpitations
Abdomen/GI: Reports Other (Irritation around ostomy.); Denies Abdominal Pain, Nausea or Vomiting
: Denies Dysuria, Frequency or Flank Pain
Musculoskeletal: Reports Joint Pain (R shoulder pain)
Skin: Reports Other (Sacral wound / pain)
Neurological: Denies Dizzy or Headache
Psych: Denies Depression or Anxiety
Physical Exam
Vital Signs
Vital Signs
Temp Pulse Resp BP Pulse Ox
97 F 73 19 125/75 97
05/10/24 18:00 05/10/24 19:00 05/10/24 19:00 05/10/24 18:00 05/10/24 17:12
Physical Exam
General: Other (83y F in no acute distress.)
HEENT: Other (Dry MM. Neck supple.)
Respiratory: Other (Coarse breath sounds at the L base.)
Cardiac: S1/S2 and Regular Rhythm; No Murmur
GI: Soft, Non Tender, Non Distended, Normal Bowel Sounds and Other (R sided ileostomy with dark, liquid material in device. Skin surrounding site excoriated / erythematous.)
Musculoskeletal: No Clubbing, No Cyanosis, No Edema and Other (Tenderness anterior aspect of the R shoulder / biceps tendon.)
Skin: Other (Scattered purpura / ecchymoses on the extremities. Sacral wound with dressing in place.)
Neuro: AO x 3 and Other (Vague, non-focal weakness without laterality. No sensory impairment.)
Laboratory Results
-
05/10/24 17:25
Laboratory Results
Total Bilirubin 0.6 mg/dl (0.2-1.3) 05/10/24 17:25
AST 79 U/L (14-36) H 05/10/24 17:25
ALT 87 U/L (0-35) H 05/10/24 17:25
Alkaline Phosphatase 460 U/L (38-126) H 05/10/24 17:25
Impression/Plan
-
A/P: Patient is an 83y F with PMH significant for mesenteric ischemia s/p colectomy and ileostomy, sacral wound, A-Fib and hyponatremia who presents to ED complaining of hypotension and fatigue / weakness.
Generalized Weakness / Fatigue
Hypotension
- Admit for further evaluation and treatment.
- Suspect fatigue / weakness is multifactorial and due to multiple ongoing health issues.
- See below for specific issues.
CHELSEA
Hyperkalemia
Non-Gapped Metabolic Acidosis
Hyponatremia (chronic)
- Suspect secondary to hypovolemia +/- ATN due to hypotension.
- IVF support including supplemental bicarb.
- Hold sedating meds / meds that may contribute to hypotension.
- Bladder scan / straight cath is needed though doubt obstructive process.
- EKG without changes c/w hyperkalemia.
- Nephrology evaluation.
- Hold nephrotoxic medications.
Subacute CVA
- CT done in the ED today shows watershed area of ischemia in the posterior R frontal / parietal area.
- Perhaps some mild LLE weakness appreciated on exam. No other evident focal deficits.
- Area of ischemia seems likely due to BP changes / hypotension / etc. Not likely an embolic issue off of Eliquis.
- ? timing to insult as patient with symptoms concerning for CVA a few months ago.
- CT was negative at that time and they elected to forego MRI.
- Continue ASA daily.
- Avoid hypotension.
- PT / OT evaluations.
- Neurology evaluation.
- MR in AM.
Stage III Sacral Wound +/- Osteomyelitis
- Recent MRI (March 2024) shows subtle bony changes potentially c/w osteo.
- Not currently on active abx therapy.
- Continue local wound care. Mattress overlay.
- Wound Care eval.
- ID eval for additional recommendations.
Abdominal Wall Cellulitis / Fungal Infection
Ileostomy Dysfunction / Leakage
- Ongoing issue with ostomy leakage and device requiring complete change multiple times daily.
- Continue topical / local care for skin irritation / barrier treatments / etc.
- Wound / Ostomy evaluation.
- Patient is investigating options for reversal of ostomy.
Right Shoulder Pain
- Patient with waxing / waning R shoulder discomfort - worse since walking with a cane.
- Family states that imaging was done previously and revealed no fracture / dislocation.
- Tylenol for pain control.
- PT / OT evals as noted above.
- Will ask Ortho to evaluate for additional recommendations.
Paroxysmal Atrial Fibrillation
- In sinus rhythm s/p remote ablation.
- Off of Eliquis x 2 weeks and will continue to hold for now.
- Hold Cardizem given hypotension - monitor on telemetry.
Hypotension
- History of hypertension and now hypotensive on midodrine.
- Continue midodrine and avoid hypotension.
- IVFs as noted above. Follow orthostatic signs.
Hypothyroidism
- Continue current T4 supplementation.
- Update TFTs.
Steroid Therapy
- Patient on prednisone for the past few months for suspected inflammatory component of skin changes.
- Now tapering and down to 5mg daily.
- Will continue current dose unchanged given hypotension.
- Agree with longer term plan for tapering / cessation.
- Purpura / skin changes likely secondary to combination of prednisone and Eliquis / ASA.
DVT Prophylaxis: SCDs
Code Status: DNR
[2024-05-10] MEDS: NSS 1000 IV (20:23)
[2024-05-10 21:36] LABS: Glucose - Point of Care 104 mg/dl (70-99)
[2024-05-10 22:02] LABS: Potassium 5.2 mmol/L (3.5-5.1)
[2024-05-10] MEDS: SODIUM BICARBONATE 1150 MEQ IV (22:56)
[2024-05-10 23:15] VITALS: BP 89/57; BP 95/57; BP 97/58; PULSE 75; PULSE 82; PULSE 90; BMI 17.8
[2024-05-11] VITALS (8 sets, daily range): BP systolic 88–141; BP diastolic 56–90; PULSE 79–100; BMI 17.8
[2024-05-11 00:25] LABS: Free T4 0.68 ng/dl (0.78-2.19)
[2024-05-11] MEDS: SYNTHROID 75 MCG PO (05:45)
[2024-05-11 07:38] LABS: Hematocrit 32.5 % (37.0-47.0); Hemoglobin 10.9 g/dL (12.0-16.0); Mean Corp Hgb Conc. 33.5 g/dL (33.0-37.0); Mean Corpuscular Hgb 29.6 pg (27.0-31.0); Mean Corpuscular Volume 88.3 fL (81.0-99.0); Mean Platelet Volume 10.5 fL (7.4-10.4); Platelet Count 278 10^3/uL (130-400); Red Blood Cell Count 3.68 10^6/uL (4.20-5.40); Red Cell Dist. Width 16.3 % (11.5-14.5)
[2024-05-11 08:05] LABS: Blood Urea Nitrogen 70 mg/dl (7-17); Calcium 9.4 mg/dl (8.4-10.2); Carbon Dioxide 23 mmol/L (22-30); Chloride 105 mmol/L (98-107); Estimated Creatinine Clearance 20 ml/min; Glucose 109 mg/dl (70-99); Potassium 5.1 mmol/L (3.5-5.1); Sodium 133 mmol/L (135-145); eGFR 34.15
[2024-05-11 09:43] LABS: GGTP 737 U/L (12-43); Lipase 187 U/L (23-300)
[2024-05-11] MEDS: NEURONTIN 100 MG PO ×3 (10:01→20:55)
[2024-05-11] MEDS: TYLENOL 650 MG PO ×2 (10:01→16:23)
[2024-05-11] MEDS: ProAmatine 10 MG PO ×3 (10:02→18:55)
[2024-05-11] MEDS: DELTASONE 5 MG PO (10:06)
[2024-05-11] MEDS: LOW STRENGTH ASPIRIN 81 MG PO (10:07)
--- NOTE | 2024-05-11 10:24 | W.PN.UPDATE ---
Update Note
Progress Note Update
Seen and examined by me independently in collaboration with the director medical economics.
Lab data and imaging data reviewed.
Addendum as below :
Presents with fatigue and weakness.
Denies any limb weakness or any sensory disturbances in the extremities. No speech disturbances. She did notice that balance issue since yesterday and she is not sure if it is because of weakness or otherwise. Denies headache.
Also denies any nausea vomiting or diarrhea. No fever or chills at home.
Denies any shortness of breath or chest pain.
No diarrhea.
Currently getting wound care for the sacral wound at the wound care center [facility].
Alert and oriented
No respiratory distress. Afebrile. Not tachycardic. Blood pressure stable.
Chest clear. Abdomen benign. Nonfocal neurologically and gross exam.
Weakness and fatigue suspect secondary to multifactorial etiologies.
Acute kidney injury on chronic kidney disease 3-no obvious extrarenal losses. Not on diuretics. Responding to IV fluids suggestive of prerenal etiology. Await nephrology input.
Hyperkalemia in the setting of [id number] further IV bicarbonate fluids.
Hyponatremia-suspect of volume depletion related-improved with fluids
Subacute right hemispheric infarct-nonfocal on gross exam but patient complains of balance issues-MRI of the brain pending. She is in sinus rhythm but she was on Eliquis for many years which was discontinued 2 weeks ago. Follow telemetry.
Depending on an nature of infarcts on MRI will reconsider anticoagulation. Await nephrology input.
Chronic sacral wound-continue with the wound care. ID has been consulted.
PMR on steroids -cw prednisone ; if hemodynamics are an issue again would do stress dose steroids
Hypothyroidism with inadequate replacement. Patient says no changes in the recent dosing of levothyroxine. Compliant with the medication. Increase Synthroid to 100 mcg p.o. daily.
Discussed with RN and the at bedside
Total time spent on today's encounter was 52 minutes which included time spent in counseling the patient/family regarding diagnosis and treatment plan as listed above, goals of care, and symptom management. Case was discussed with nursing staff,
specialists . All labs and imaging personally reviewed by me. Remainder the time spent in detailed review of previous records, lab data, imaging, and other medical provider documentation.
--- NOTE | 2024-05-11 10:40 | W.PN.HOSP.TC ---
Today's Communication/Plan
-
- Increase levothyroxine.
- Continue IV hydration.
- Midodrine as needed.
- Wound care, ID and nephrology consult.
Assessment / Plan
Assessment / Plan
Assessment
Diya Kohli, age 83, presented to the ED complaining of generalized weakness. Patient has complicated recent history beginning with mesenteric ischemia in December 2023 resulting in subtotal colectomy / ileostomy formation. Her medical issues
since that time have included development of sacral wound and suspected underlying osteomyelitis, persistent hyponatremia, skin irritation / fungal infection surrounding ostomy, etc. Patient states that she has very poor PO intake since at least
November of this year. She has been ambulating at home with / without use of a cane. For the past several days, patient has been extremely fatigued with increased sleep, generalized weakness, etc. Today she was unable to stand or ambulate at all. She
denies any focal issues - but complains of generalized / all over weakness. Patient was evaluated by VN today and found to have low BP (systolic in the 80s) and was advised to present to the ED for further evaluation. Patient denies fevers / chills,
N/V, urinary complaints, etc. Family notes multiple med changes in the past 2 weeks including: change from Eliquis to ASA, Advil (1-2 tabs daily), decreased prednisone to 5mg daily.
Impression and plan
Generalized Weakness / Fatigue
Hypotension
- Suspect fatigue / weakness is multifactorial and due to multiple ongoing health issues.
- See below for specific issues.
CHELSEA
Hyperkalemia
Non-Gapped Metabolic Acidosis
Hyponatremia (chronic)
- Suspect secondary to hypovolemia +/- ATN due to hypotension.
- IVF support including supplemental bicarb.
- Hold sedating meds / meds that may contribute to hypotension.
- Bladder scan / straight cath is needed though doubt obstructive process.
- EKG without changes c/w hyperkalemia.
- Nephrology evaluation.
- Hold nephrotoxic medications.
Subacute CVA
- CT done in the ED today shows watershed area of ischemia in the posterior R frontal / parietal area.
- Perhaps some mild LLE weakness appreciated on exam. No other evident focal deficits.
- Area of ischemia seems likely due to BP changes / hypotension / etc. Not likely an embolic issue off of Eliquis.
- ? timing to insult as patient with symptoms concerning for CVA a few months ago.
- CT was negative at that time and they elected to forego MRI.
- Continue ASA daily.
- PT / OT evaluations.
- Neurology evaluation.
- MR pending.
Stage III Sacral Wound +/- Osteomyelitis
- Recent MRI (March 2024) shows subtle bony changes potentially c/w osteo.
- Not currently on active abx therapy.
- Continue local wound care. Mattress overlay.
- Wound Care eval.
- ID eval for additional recommendations.
Abdominal Wall Cellulitis / Fungal Infection
Ileostomy Dysfunction / Leakage
- Ongoing issue with ostomy leakage and device requiring complete change multiple times daily.
- Continue topical / local care for skin irritation / barrier treatments / etc.
- Wound / Ostomy evaluation.
- Patient is investigating options for reversal of ostomy.
Right Shoulder Pain
- Patient with waxing / waning R shoulder discomfort - worse since walking with a cane.
- Family states that imaging was done previously and revealed no fracture / dislocation.
- Tylenol for pain control.
- PT / OT evals as noted above.
Paroxysmal Atrial Fibrillation
- In sinus rhythm s/p remote ablation.
- Off of Eliquis x 2 weeks and will continue to hold for now.
- Hold Cardizem given hypotension - monitor on telemetry.
Hypotension
- History of hypertension and now hypotensive on midodrine.
- Continue midodrine and avoid hypotension.
- IVFs as noted above. Follow orthostatic signs.
Hypothyroidism
- TSH 47.7 with T4 0.68 on 05-11-24.
- Increase levothyroxine to 100 mcg.
Steroid Therapy
- Patient on prednisone for the past few months for suspected inflammatory component of skin changes.
- Now tapering and down to 5mg daily.
- Will continue current dose unchanged given hypotension.
- Agree with longer term plan for tapering / cessation.
- Purpura / skin changes likely secondary to combination of prednisone and Eliquis / ASA.
- Check cortisol
- Can stress dose if vitals destabilize again.
DVT Prophylaxis: SCDs
Code Status: DNR
Anticipated Discharge: 24 - 48 hours
Subjective/Interval History
-
Date of Service: May 11, 2024
Objective Data
-
Labs:
Laboratory Results
05/11/24
06:36
WBC 8.0
Hgb 10.9 L
Hct 32.5 L
Plt Count 278
Sodium 133 L
Potassium 5.1
Chloride 105
Carbon Dioxide 23
BUN 70 H
Creatinine 1.5 H
Glucose 109 H
Calcium 9.4
Vital Signs:
Vital Signs
Temp Pulse Resp BP Pulse Ox
97.3 F 80 12 114/72 92
05/10/24 23:15 05/11/24 08:21 05/11/24 08:21 05/11/24 08:21 05/11/24 08:21
I&O
05/10/24 05/11/24 05/12/24
06:59 06:59 06:59
Intake Total 480 / 480
Balance 480 / 480
--- NOTE | 2024-05-11 11:41 | CON.NEURO4 ---
Consultation - Neurology 4
-
CONSULTING PHYSICIAN: Shaw Pepper MD(Neurology)
REFERRING PHYSICIAN: Hospitalist
DICTATED BY: Shaw Pepper MD
DATE/TIME OF REQUEST: May 10, 2024
DATE/TIME OF CONSULTATION: May 11, 2024
Reason for Consultation: Left-sided weakness
History of Present Illness:
This is a 83 year old right handed (male/female) who has presented to the hospital with (chief complaint).of left sided weakness She gives PMH significant for mesenteric ischemia, paroxysmal A-Fib and hypertension who presents to ED complaining
of generalized weakness. Patient has recent history of mesenteric ischemia (December 2023) resulting in subtotal colectomy / ileostomy formation. Her medical issues since that time have included development of sacral wound and suspected underlying
osteomyelitis, persistent hyponatremia, skin irritation / fungal infection surrounding ostomy, etc.
Patient states that she has very poor PO intake since at least November of this year.
She has been ambulating at home with / without use of a cane.
For the past several days, patient has been extremely fatigued with increased sleep, generalized weakness, etc.
Today she was unable to stand or ambulate at all. She denies any focal issues - but complains of generalized / all over weakness.
Patient was evaluated by VN today and found to have low BP (systolic in the 80s) and was advised to present to the ED for further evaluation.
Patient denies fevers / chills, N/V, urinary complaints, etc.
Family notes multiple med changes in the past 2 weeks including: change from Eliquis to ASA, Advil (1-2 tabs daily), decreased prednisone to 5mg daily.
Past Medical History: Hypotension, Paroxysmal Atrial Fibrillation, ASCVD / Mesenteric Ischemia, Hypothyroidism, Hyponatremia, Trigeminal Neuralgia(R),Lumbar DDD, Sacral Wound +/- Osteomyelitis, Diverticular Disease
Surgical History: Subtotal Colectomy / Ileostomy Formation (November 2023), Right SIMONE, Appendectomy, PVI Ablation
Family History: NC
Social History: lives at home with her
Allergies: ROS doxycycline sulfa hydrocodone metoprolol
Home Medications: See addendum
Review of Symptoms:
Patient denies any fever, headache, chest pain, shortness of breath, GI or symptoms.
�Per the HPI.�All systems are reviewed negative except above.
�- Remove any of these problems that patient may have complained about in the HPI.
�- If patient is unresponsive, intubated or demented, say 'Per the HPI. I am unable to obtain a complete review of systems�because of patient's inability to provide history.'
Vital Signs:
The patient has a Temp 36.3 C Pulse 80 Resp 12 BP114/72 Pulse Ox 92
Physical Exam:
The patient is afebrile, heart sounds S1 and S2 are (regular / irregular), and chest is clear to auscultation bilaterally.
NIH Stroke Scale (if applicable):
I performed the NIH stroke scale on the patient . The patient scored (1 ) points on the NIH stroke scale
Neurologic Examination:
The patient is awake, alert and oriented x 3. She is able to follow commands and answer questions appropriately. There is no aphasia or dysarthria. On cranial nerve assessment, pupils are 3 mm bilateral, round and reactive to light and
accommodation. Visual raphael are full. Extraocular movements are intact. Facial sensations are intact and bilaterally symmetrical, there is no facial asymmetry. Hearing is intact bilaterally to normal conversation volume. Tongue palate and uvula
are midline. Sternocleidomastoid strengths are full bilaterally.
Motor strengths are 5/5 bilateral upper and lower extremities on medical research Alutiiq scale. There is no drift or involuntary movement noted. Deep tendon reflexes are 2+ bilateral upper and lower extremities and Babinski is absent bilaterally.
Sensations of pain, touch, temperature and vibration are intact and bilaterally symmetrical. There was no extinction noted on double simultaneous stimulation. Coordination is intact by finger to nose bilaterally. Rombergs Unsteady. Gait assisted
walker
Lab Results: See addendum
Neuro Imaging: CT head shows acute right frontoparietal ischemia
Impression:
Mrs. SENG DO is an 83 year old F who has presented to the hospital with (symptoms/chief complaint). Left-sided weakness
Differentials for the patient's presentation include:
1. Right posterior frontoparietal infarct in the territory of the right posterior M3 M4 distribution
Recommendations:
1. Eliquis 2.5 mg BID
2. Plavix
3. Permissive hypertension
4. Statin
5. Blood sugar management
6. PT/OT
7. Speech therapy
8. MRI/MRA of the brain
9. Echocardiogram
10. Serial CT head
Discussed patient care with: Hospitalist
Allergies
-
Allergies
Allergy/AdvReac Type Severity Reaction Status Date / Time
amlodipine Allergy Nausea Verified 02/03/24 19:54
doxycycline Allergy Hives Verified 02/03/24 19:53
sulfamethoxazole Allergy Rash Verified 02/03/24 19:53
[From Bactrim]
trimethoprim [From Bactrim] Allergy Rash Verified 02/03/24 19:53
hydrocodone [From Vicodin] AdvReac Vomiting Verified 02/03/24 19:52
metoprolol [From Lopressor] AdvReac Dizzy Verified 02/03/24 19:52
Vital Signs and Labs
-
Vital Signs and Labs:
Vital Signs
Temp Pulse Resp BP Pulse Ox
36.3 C 80 12 114/72 92
05/10/24 23:15 05/11/24 08:21 05/11/24 08:21 05/11/24 08:21 05/11/24 08:21
Lab Results
05/11/24 06:36
05/11/24 06:36
Sodium 133 mmol/L (135-145) L 05/11/24 06:36
Potassium 5.1 mmol/L (3.5-5.1) 05/11/24 06:36
BUN 70 mg/dl (7-17) H 05/11/24 06:36
Glucose 109 mg/dl (70-99) H 05/11/24 06:36
Calcium 9.4 mg/dl (8.4-10.2) 05/11/24 06:36
Medications
-
Active Medications
Generic Name Dose Route Start Last Admin
Trade Name Freq PRN Reason Stop Dose Admin
Acetaminophen 650 mg 05/10/24 22:04 05/11/24 10:01
Acetaminophen 325 Mg Tablet PO 06/07/24 22:03 650 mg
Q6HPRN PRN Administration
mild pain/fever
Aspirin 81 mg 05/11/24 08:00 05/11/24 10:07
Aspirin 81 Mg Chewable Tablet PO 06/08/24 07:59 81 mg
DAILY DAVID Administration
Dextrose 12.5 grams 05/10/24 18:13
Dextrose 50% (0.5 Grams/Ml) 50 Ml Syringe IV 06/07/24 18:12
[id number] PRN
hypoglycemia (BG < 70 mg/dL)
Protocol
Gabapentin 100 mg 05/11/24 08:00 05/11/24 10:01
Gabapentin 100 Mg Capsule PO 06/08/24 07:59 100 mg
TID DAVID Administration
Dextrose/Sodium Chloride 1,000 mls @ 80 mls/hr 05/11/24 11:00
D5/0.45%Nacl IV
.[id number] DAVID
Levothyroxine Sodium 100 mcg 05/12/24 06:00
Levothyroxine 100 Mcg Tablet PO 06/09/24 05:59
DAILY@0600 DAVID
Midodrine 10 mg 05/11/24 07:00 05/11/24 10:02
Midodrine 5 Mg Tablet PO 06/08/24 06:59 10 mg
TID@0700,1300,1800 DAVID Administration
Prednisone 5 mg 05/11/24 08:00 05/11/24 10:06
Prednisone 5 Mg Tablet PO 06/08/24 07:59 5 mg
DAILY DAVID Administration
Sodium Chloride 0 flush 05/10/24 23:00
Sodium Chloride 0.9% (Flush) Syringe IV 06/07/24 22:59
PER PROTOCOL DAVID
Home Medications
�Medication �Instructions �Recorded
diltiazem HCl 120 mg 120 mg PO DAILY #30 caps 03/24/21
capsule,extended release 24 hr
gabapentin 300 mg capsule 300 mg PO DAILY #30 caps 03/24/21
levothyroxine 75 mcg tablet 75 mcg PO DAILY@0600 Thyroid 12/26/23
ondansetron HCl 4 mg tablet 4 mg PO Q8HPRN PRN NAUSEA/VOMITING 01/04/24
miconazole nitrate 2 % topical 1 applic topical BID Skin issues 02/01/24
powder (Miconazorb AF) 30 days #85 grams
midodrine 5 mg tablet 10 mg (2 x 5 mg) PO 02/01/24
TID@0700,1300,1800 low blood
pressure 30 days #90 tabs
mirtazapine 7.5 mg tablet 7.5 mg PO HS insomnia 30 days #30 02/01/24
tabs
prednisone 5 mg tablet 5 mg PO DAILY arthritis 30 days 02/01/24
#30 tabs
acetaminophen 325 mg tablet 650 mg PO Q6HPRN PRN mild 02/03/24
pain/fever
aspirin 81 mg chewable tablet 81 mg PO DAILY Blood Clot 05/10/24
Prevention/Tx
clotrimazole 1 % topical cream 1 applic topical PRN PRN ostomy 05/10/24
(Athlete's Foot (clotrimazole))
diclofenac sodium 1 % topical gel 0 g topical QIDPRN PRN right 05/10/24
shoulder pain
ketoconazole 2 % topical cream 1 applic topical BID sacral wound 05/10/24
[2024-05-11 11:45] LABS: Cortisol, Random 16.3 ug/dl
--- NOTE | 2024-05-11 12:22 | W.CON.NEPH ---
Consultation
-
Date/Time Consultation Requested: 05/11/24 7am
Date/Time Consultation Performed: 05/11/24 11am
Requesting Provider: Dr Baires
Performing Provider: Dr Painter
Reason for Consultation: CHELSEA, hyperkalemia
Medical History
-
Chief Complaint: Hyponatremia
History of Present Illness:
83 yo female with afib on Eliquis and Diltiazem, hypotension on midodrine, hyperlipidemia, hypothyroidism on synthroid. 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 She was in the hospital in January this year with multiple electrolyte abnormalities
and CHELSEA. On discharge she was on salt tablets and sodium bicarbonate. She say Dr Lacey in the office in March and was fairly stable. Her Cr was 1.6 at that time. Shehas persistent poor intake and increased ileotomy output. She came to the ER
because of generalized weakness and was unable to stand. In the ER she was suspected to have had a Right CVA. We are asked to assist with CHELSEA (Cr 2.1), hyperkalemia, hyponatremia. She had taken advil over the last two weeks.
Past Medical History
Atrial Fibrillation, Hypertension, Hyperlipidemia, Hypothyroidism, Sciatica, L5 Spinal Stenosis, Right Femoral Neck Fracture status post right hip hemiarthroplasty, Nosebleed, Diverticulitis, Elevated Hepatic Transaminases, Trigeminal Neuralgia,
Appendectomy and Cardiac Ablation, colectomy, ileostomy
Social History
Tobacco: Former Smoker
Alcohol: None
Drug: None
Living: With Family
Family History
Family History: Not Pertinent
Allergies / Home Medications
Allergy/AdvReac Type Severity Reaction Status Date / Time
amlodipine Allergy Nausea Verified 02/03/24 19:54
doxycycline Allergy Hives Verified 02/03/24 19:53
sulfamethoxazole Allergy Rash Verified 02/03/24 19:53
[From Bactrim]
trimethoprim [From Bactrim] Allergy Rash Verified 02/03/24 19:53
hydrocodone [From Vicodin] AdvReac Vomiting Verified 02/03/24 19:52
metoprolol [From Lopressor] AdvReac Dizzy Verified 02/03/24 19:52
�Medication �Instructions �Recorded �Confirmed �Type
diltiazem HCl 120 mg 120 mg PO DAILY #30 caps 03/24/21 05/10/24 Rx
capsule,extended release 24 hr
gabapentin 300 mg capsule 300 mg PO DAILY #30 caps 03/24/21 05/10/24 Rx
levothyroxine 75 mcg tablet 75 mcg PO DAILY@0600 Thyroid 12/26/23 05/10/24 History
ondansetron HCl 4 mg tablet 4 mg PO Q8HPRN PRN NAUSEA/VOMITING 01/04/24 05/10/24 History
miconazole nitrate 2 % topical 1 applic topical BID Skin issues 02/01/24 05/10/24 Rx
powder (Miconazorb AF) 30 days #85 grams
midodrine 5 mg tablet 10 mg (2 x 5 mg) PO 02/01/24 05/10/24 Rx
TID@0700,1300,1800 low blood
pressure 30 days #90 tabs
mirtazapine 7.5 mg tablet 7.5 mg PO HS insomnia 30 days #30 02/01/24 05/10/24 Rx
tabs
prednisone 5 mg tablet 5 mg PO DAILY arthritis 30 days 02/01/24 05/10/24 Rx
#30 tabs
acetaminophen 325 mg tablet 650 mg PO Q6HPRN PRN mild 02/03/24 05/10/24 History
pain/fever
aspirin 81 mg chewable tablet 81 mg PO DAILY Blood Clot 05/10/24 05/10/24 History
Prevention/Tx
clotrimazole 1 % topical cream 1 applic topical PRN PRN ostomy 05/10/24 05/10/24 History
(Athlete's Foot (clotrimazole))
diclofenac sodium 1 % topical gel 0 g topical QIDPRN PRN right 05/10/24 05/10/24 History
shoulder pain
ketoconazole 2 % topical cream 1 applic topical BID sacral wound 05/10/24 05/10/24 History
Review of Systems
-
weakness, decreased appetite
All other systems: Negative unless noted
Physical Exam
Vital Signs
Vital Signs
Temp Pulse Resp BP Pulse Ox
97.3 F 79 12 112/64 92
05/10/24 23:15 05/11/24 12:02 05/11/24 08:21 05/11/24 12:02 05/11/24 08:21
Lab Results
WBC 8.0 10^3/uL (4.8-10.8) 05/11/24 06:36
RBC 3.68 10^6/uL (4.20-5.40) L 05/11/24 06:36
Hgb 10.9 g/dL (12.0-16.0) L 05/11/24 06:36
Hct 32.5 % (37.0-47.0) L 05/11/24 06:36
Plt Count 278 10^3/uL (130-400) 05/11/24 06:36
Sodium 133 mmol/L (135-145) L 05/11/24 06:36
Potassium 5.1 mmol/L (3.5-5.1) 05/11/24 06:36
Chloride 105 mmol/L (98-107) 05/11/24 06:36
Carbon Dioxide 23 mmol/L (22-30) 05/11/24 06:36
BUN 70 mg/dl (7-17) H 05/11/24 06:36
Creatinine 1.5 mg/dL (0.6-1.0) H 05/11/24 06:36
eGFR 34.15 05/11/24 06:36
Glucose 109 mg/dl (70-99) H 05/11/24 06:36
Calcium 9.4 mg/dl (8.4-10.2) 05/11/24 06:36
Albumin 4.0 g/dl (3.5-5.0) 05/10/24 17:25
Laboratory Tests
04/21/24
09:30
Sodium 136
Potassium 5.5 H
Carbon Dioxide 22
Creatinine 1.3 H
Physical Exam
Patient is awake alert oriented and in no distress. Mood and affect were pleasant, insight and judgment were good. Pupils are equal round and reactive to light, extraocular movements are intact, sclera were anicteric. Hearing was normal, ears and
nose are intact. Oropharynx was clear. Neck was supple with trachea midline and no thyromegaly. Heart was regular rate and rhythm without rubs. Lower extremities without edema. Lungs were coarse to auscultation bilaterally and with normal
excursion. Abdomen was soft, nontender, with normal active bowel sounds, and no hepatosplenomegaly. Skin was without rash and with normal turgor.
Data Reviewed
-
Radiology: Image Personally Visualized and interpreted (CXR 05/10/24 by my reading shows no acute disease)
CT Scan: Report Reviewed by me (CT 05/11/24 with subacute watershed infarct right frontoparietal lobe)
Medical Tests (Nuc Med, Echo etc): Image Personally Visualized and interpreted (ECG on 05/10/24 by my reading shows sinus rhythm 1st degree AVB)
Labs: Labs Reviewed by me
Old Records: Reviewed
Assessment/Plan
-
IMP:
Hypoantremia
Hyperkalemia
Non gap met acidosis
Anemia
ileostomy 12/26
Paroxysmal atrial fibrillation
Polymyalgia rheumatica by [id number]
Hypothyroidism
right CVA
CHELSEA
Plan:
restart salt tablets and sodium bicarbonate tablets
check urine studies
treatment of right CVA with antiplatelet agents
prn midodrine
continue prednisone, stress dose steroids not required
--- NOTE | 2024-05-11 12:43 | CON.ID ---
Consultation
-
Date/Time Consultation Requested: May 10, 2024 [id number]
Date/Time Consultation Performed: May 11, 2024 1245
Requesting Provider: Dr. Dequan Lancaster
Performing Provider: Dr. Yashira Kaufman
Reason for Consultation: Sacral osteo/peristomal cellulitis
Chief Complaint / Past History
Chief Complaint
Weakness
History of Present Illness
83-year-old female with history of atrial fibrillation, PMR on chronic steroid, hypothyroidism, ischemic bowel total abdominal colectomy and end ileostomy (12/27/23) with prolonged hospital stay and developed sacral decubitus. She follows with
[facility] at [facility] who ordered MRI of pelvis (04/21/24) showing periosteal rxn, subtle marrow edema, cannot exclude osteo. Wound swab MSSA. She has appt with ID (va) on 05/14. However, she is admitted to the hospital 05/10/24 for progressive weakness x
1 week, SBP in 80's, hyperkalemia, hyponatremia. Brain MRI shows mod acute-subacute infarct right side with petechial cortical hemorrhage. Pt also having issues with ostomy leakage with surrounding irritated changes. She sees upholstery sewer who changed
the appliance on 05/09. Regarding sacral wound, no drainage. Her packs the wound. Appetite is poor x several months.
Past History
Additional Past Medical History:
PMR on prednisone 5 mg
pAfib
hypothyroidism
Hypotension on midodrine
Hyponatremia
Dyslipidemia
Sciatica
Lumbar spinal stenosis
Trigeminal neuralgia
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
Enterococcus faecalis bacteremia (11/2023)
Appendectomy
right hip hemiarthroplasty
Allergy History:
amlodipine Allergy (Verified 02/03/24 19:54)
Nausea
doxycycline Allergy (Verified 02/03/24 19:53)
Hives
sulfamethoxazole [From Bactrim] Allergy (Verified 02/03/24 19:53)
Rash
trimethoprim [From Bactrim] Allergy (Verified 02/03/24 19:53)
Rash
hydrocodone [From Vicodin] Adverse Reaction (Verified 02/03/24 19:52)
Vomiting
metoprolol [From Lopressor] Adverse Reaction (Verified 02/03/24 19:52)
Dizzy
Medications Reviewed: Yes
Current Antibiotics:
none
Social History
Tobacco: Former Smoker
Alcohol: Occasional
Drug: None
Personal:
Family History
Family History: Not Pertinent
Review of Systems
Review of Systems
General: Negative Fever or Chills
HEENT: Negative Sinus Problems, Headache or Pharyngitis
Cardiovascular: Negative Chest Pain or Dyspnea
Respiratory: Negative Dyspnea or Cough
Gasteroenterology: Weight Loss and Other; Negative Nausea or Vomiting
Genital / Urological: Negative Dysuria or Flank Pain
Endocrine: Weakness
All systems: All other systems were reviewed and were negative
Vital Signs
Temp Pulse Resp BP Pulse Ox
97.3 F 79 12 112/64 92
05/10/24 23:15 05/11/24 12:02 05/11/24 08:21 05/11/24 12:02 05/11/24 08:21
Physical Exam
Physical Exam
Constitutional: No Acute Distress, Comfortable and Cachetic
Eyes: No Conjunctival Hemorrhage and Sclera Anicteric
Cardiovascular: Regular Rate and S1/S2
Pulmonary: Clear
Gastrointestinal: Soft, Non Tender, Non Distended, Normal Bowel Sounds and Other (right LQ ostomy without leakage, no erythema outside appliance.)
Genito-Urinary: Negative CVA Tenderness
Extremities: Negative Edema
Wound: Other (Coccyx: approx 3mm x 2mm x 0.5 mm (depth) with clean pink-red granulation tissue without tunneling, no probing to bone, no drainage, no surrounding erythema.)
Neurological: AO x 3
Lab / Diagnostic Study Results
05/11/24 06:36
05/11/24 06:36
Abs Immat Gran (auto) 0.1 10^3/uL (0-0.05) H 05/10/24 17:25
Absolute Neuts (auto) 7.2 10^3/uL (1.4-6.5) H 05/10/24 17:25
Absolute Lymphs (auto) 1.0 10^3/uL (1.2-3.4) L 05/10/24 17:25
Absolute Monos (auto) 1.2 10^3/uL (0.1-0.6) H 05/10/24 17:25
Absolute Basos (auto) 0.1 10^3/uL (0-0.2) 05/10/24 17:25
Immature Gran % 1.3 % (0-0.5) H 05/10/24 17:25
Neutrophils % 72.3 % (42.2-75.2) 05/10/24 17:25
Lymphocytes % 9.8 % (20.5-51.1) L 05/10/24 17:25
Monocytes % 12.2 % (1.7-9.3) H 05/10/24 17:25
Eosinophils % 3.5 % (0-6) 05/10/24 17:25
Basophils % 0.9 % (0-2) 05/10/24 17:25
Microbiology Results
05/10 CXR neg
05/[address]: Subacute ischemic watershed infarct at the junction of the posterior right frontal lobe and right parietal lobe.
04/21/24 Pelvis MRI: Posterior sacral full-thickness soft tissue ulceration. No focal soft tissue collection to suggest abscess. Periosteal reaction reaction along the ventral and dorsal margin of the fifth sacral segment as well as the coccygeal
segments, suggesting an obstructive periostitis. Subtle marrow edema at the junction of the fourth and fifth sacral segments; possibly reactive. Subtle/early changes of osteomyelitis cannot be entirely excluded.
Assessment / Plan
# Tiny sacral decubitus wound
- No clinical signs of osteo. Healthy granulating tissue, no probe to bone.
- MRI finding of mild bone marrow edema is not specific for osteo and does not clinically correlate.
- Recommend observe without abx. The risks of equipment operator intermodal yard abx far outweigh its benefit in this case.
-Discussed with pt and daughter at bedside, who are agreeable with plan.
- Encouraged pt to improve nutritional status to promote wound healing.
-Continue wound care.
# Peristomal dermatitis due to ostomy leakage of bowel contents
- Control leakage.
- No need for abx.
# Acute-subacute R infarct.
ID will sign off.
[2024-05-11 13:55] LABS: C-Reactive Protein < 5.00 mg/L (0.0-10.00)
[2024-05-11] MEDS: D5/0.45%NACL 1000 IV (13:56)
[2024-05-11] MEDS: SODIUM BICARBONATE IV (14:04)
[2024-05-11] MEDS: BenGay-Like TOPICAL (20:59)
[2024-05-11] MEDS: BenGay-Like 1 APPLIC TOPICAL (21:09)
--- NOTE | 2024-05-11 23:39 | PTCARENOTE ---
ILEOSTOMY FOUND TO BE LEAKING- REPLACED OLD ILEOSTOMY WITH NEW ONE WITH AVAILABLE SUPPLIES
[2024-05-11 23:40] LABS: Urine Albumin Trace (Neg - Trace); Urine Bilirubin Negative (Negative); Urine Character Slightly Cloudy (Clear); Urine Color Yellow; Urine Glucose Negative (Negative); Urine Ketone Negative (Negative); Urine Leukocyte 2+ (Negative); Urine Nitrite Negative (Negative); Urine Occult Blood 2+ (Negative); Urine Specific Gravity 1.015 (<1.030); Urine Urobilinogen Negative (Neg - 1+)
[2024-05-11 23:41] LABS: Osmolality Urine 437 mOsm/kg (300-900)
[2024-05-11 23:51] LABS: Urine White Cell >100 /HPF (0-5)
[2024-05-11 23:53] LABS: Urine Red Blood Cell 0-2 /HPF (0-2); Urine Yeast Few (Negative)
[2024-05-11 23:57] LABS: Urine Sodium 8 mmol/L (30-90)
[2024-05-12] MEDS: D5/0.45%NACL 1000 IV (03:01)
[2024-05-12 03:50] VITALS: BP 136/79
[2024-05-12 05:59] VITALS: BMI 17.9
[2024-05-12] MEDS: SYNTHROID 100 MCG PO (06:07)
[2024-05-12] MEDS: ProAmatine 10 MG PO ×3 (06:07→20:43)
[2024-05-12 07:00] VITALS: BP 137/69
--- NOTE | 2024-05-12 08:06 | W.PN.NEURO.1 ---
Today's Communication / Plan
-
Check carotid ultrasound for completeness to ensure no significant narrowing of carotid arteries
Check cholesterol to ensure absence of hypercholesterolemia which would be another remediable cause of stroke
Rehabilitation evaluations
DVT prophylaxis
Replace aspirin with the use apixaban due to the prior history of atrial fibrillation and future risk of recurrent stroke. There is relative safety with the use of apixaban after 24 hours of stroke onset
No clear indication at this time for the addition of an antiplatelet agent from a neurological standpoint
Continue midodrine
Neuro Assessment/Plan
Assessment
83 year old female who has presented to the hospital with onset of left sided weakness and prior history of paroxysmal A-Fib
Found to have acute ischemic right parietal and small right insular cortex strokes by MRI, most likely thromboembolic based on the patient's prior history of atrial fibrillation and use of aspirin instead of anticoagulation
Patient was not a candidate for either intra-arterial thrombectomy or tenecteplase due to timeframe out of window
Plan
Check carotid ultrasound for completeness to ensure no significant narrowing of carotid arteries
Check cholesterol to ensure absence of hypercholesterolemia which would be another remediable cause of stroke
Rehabilitation evaluations
DVT prophylaxis
Replace aspirin with the use apixaban due to the prior history of atrial fibrillation and future risk of recurrent stroke. There is relative safety with the use of apixaban after 24 hours of stroke onset
No clear indication at this time for the addition of an antiplatelet agent from a neurological standpoint
Continue midodrine
Will follow pending results.
Subjective/Objective
Subjective Data
Date of Service: May 12, 2024
Objective Data
Vital Signs
Temp Pulse Resp BP Pulse Ox
36.5 C 72 18 136/79 100
05/12/24 03:50 05/12/24 03:50 05/12/24 03:50 05/12/24 03:50 05/12/24 03:50
Lab Results
05/11/24 06:36
Sodium 133 mmol/L (135-145) L 05/11/24 06:36
Potassium 5.1 mmol/L (3.5-5.1) 05/11/24 06:36
BUN 70 mg/dl (7-17) H 05/11/24 06:36
Glucose 109 mg/dl (70-99) H 05/11/24 06:36
Calcium 9.4 mg/dl (8.4-10.2) 05/11/24 06:36
Patient Allergies
amlodipine Allergy (Verified 02/03/24 19:54)
Nausea
doxycycline Allergy (Verified 02/03/24 19:53)
Hives
sulfamethoxazole [From Bactrim] Allergy (Verified 02/03/24 19:53)
Rash
trimethoprim [From Bactrim] Allergy (Verified 02/03/24 19:53)
Rash
hydrocodone [From Vicodin] Adverse Reaction (Verified 02/03/24 19:52)
Vomiting
metoprolol [From Lopressor] Adverse Reaction (Verified 02/03/24 19:52)
Dizzy
Data Reviewed
-
Labs: Report Reviewed
Reviewed with: Physician and Nurse Practioner
Old Records: Summarized
Past History
Past History
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
DJD, sacral wound, diverticulitis) and Other (Toxic metabolic encephalopathy December 2023)
ED Past Surgical History: Appendectomy, Bowel resection, Cardiac (Ablation) and Orthopedic (Right SIMONE)
Social History
Tobacco: Former smoker
Alcohol: Occasional
Drug: None
Personal:
Living: with family
Employment: Retired
Family History
Family History: Other (Reviewed and noncontributory)
Medications
-
Medications:
Generic Name Dose Route Start Last Admin
Trade Name Freq PRN Reason Stop Dose Admin
Acetaminophen 650 mg 05/10/24 22:04 05/11/24 16:23
Acetaminophen 325 Mg Tablet PO 06/07/24 22:03 650 mg
Q6HPRN PRN Administration
mild pain/fever
Aspirin 81 mg 05/11/24 08:00 05/11/24 10:07
Aspirin 81 Mg Chewable Tablet PO 06/08/24 07:59 81 mg
DAILY DAVID Administration
Dextrose 12.5 grams 05/10/24 18:13
Dextrose 50% (0.5 Grams/Ml) 50 Ml Syringe IV 06/07/24 18:12
[id number] PRN
hypoglycemia (BG < 70 mg/dL)
Protocol
Gabapentin 100 mg 05/11/24 08:00 05/11/24 20:55
Gabapentin 100 Mg Capsule PO 06/08/24 07:59 100 mg
TID DAVID Administration
Dextrose/Sodium Chloride 1,000 mls @ 80 mls/hr 05/11/24 11:00 05/12/24 03:01
D5/0.45%Nacl IV 1,000 mls
.[id number] DAVID Administration
Levothyroxine Sodium 100 mcg 05/12/24 06:00 05/12/24 06:07
Levothyroxine 100 Mcg Tablet PO 06/09/24 05:59 100 mcg
DAILY@0600 DAVID Administration
Menthol/Methyl Salicylate 0 applic 05/11/24 22:00 05/11/24 21:09
Bengay-Like Cream TOPICAL 06/08/24 21:59 1 applic
TID DAVID Administration
Midodrine 10 mg 05/11/24 07:00 05/12/24 06:07
Midodrine 5 Mg Tablet PO 06/08/24 06:59 10 mg
TID@0700,1300,1800 DAVID Administration
Prednisone 5 mg 05/11/24 08:00 08/11/24 10:06
Prednisone 5 Mg Tablet PO 06/08/24 07:59 5 mg
DAILY DAVID Administration
Sodium Chloride 0 flush 05/10/24 23:00
Sodium Chloride 0.9% (Flush) Syringe IV 06/07/24 22:59
PER PROTOCOL DAVID
[2024-05-12] MEDS: BenGay-Like 1 APPLIC TOPICAL ×2 (08:31→16:31)
[2024-05-12] MEDS: NEURONTIN 100 MG PO ×3 (08:31→20:43)
[2024-05-12] MEDS: LOW STRENGTH ASPIRIN 81 MG PO (08:32)
[2024-05-12] MEDS: DELTASONE 5 MG PO (08:32)
--- NOTE | 2024-05-12 09:08 | VNURNOTE ---
Chart reviewed. Patient is current with [facility] nursing, PT, NURSE TECH. Will continue to follow hospital course.
[2024-05-12 09:20] LABS: Hematocrit 34.4 % (37.0-47.0); Hemoglobin 11.5 g/dL (12.0-16.0); Mean Corp Hgb Conc. 33.4 g/dL (33.0-37.0); Mean Corpuscular Hgb 30.1 pg (27.0-31.0); Mean Corpuscular Volume 90.1 fL (81.0-99.0); Mean Platelet Volume 11.3 fL (7.4-10.4); Platelet Count 270 10^3/uL (130-400); Red Blood Cell Count 3.82 10^6/uL (4.20-5.40); Red Cell Dist. Width 16.4 % (11.5-14.5)
--- NOTE | 2024-05-12 10:42 | PTOTSP ---
SPEECH THERAPY SWALLOW EVALUATION:
Patient exhibits clinical signs of oropharyngeal dysphagia, likely chronic related to weakness/deconditioning secondary to mesenteric ischemia, sacral wound, osteomyelitis, persistent hyponatremia, and acutely exacerbated by acute-subacute CVA. At
this time, patient appears to be tolerating Regular texture diet and thin liquids without signs or symptoms of aspiration. CXR currently clear. Recommend continue Regular texture diet, thin liquids. Medications whole with liquid, one at a time.
Aspiration precautions including: Upright positioning; Small single sips/bites; Slow rate of intake; Small, frequent meals; Supervision with meals and assistance with set-up. Monitor for signs of aspiration. D/c oral diet if any decline in mental or
respiratory status. Consider Nutrition consult given patient report of limited p.o. intake and weight loss. Speech therapy to follow, assess diet tolerance and modify as appropriate, determine indication for instrumental assessment of swallow if
warranted, determine indication for diet downgrade to reduce energy expenditure should patient not be able to meet nutritional needs, provide continued diagnostic swallow therapy as appropriate, and complete full speech/language/cognitive
communication evaluation due to acute-subacute CVA.
RECOMMEND:
1) Regular texture diet, thin liquids
2) Medications whole with liquid, one at a time
3) Aspiration precautions including: Upright positioning; Small single sips/bites; Slow rate of intake; Small, frequent meals; Supervision with meals and assistance with set-up. Monitor for signs of aspiration. D/c oral diet if any decline in mental
or respiratory status
4) Consider Nutrition consult given patient report of limited p.o. intake and weight loss
5) ST to follow for swallow follow up and Speech/Language/Cognitive Communication Evaluation
--- NOTE | 2024-05-12 11:44 | CM ---
Addendum entered by Rosemary Bond 05/12/24 15:54:
Spoke with daughter Theresa, from [facility].
Family would prefer [facility].
Referral placed this morning.
CM will continue to follow.
Original Note:
Patient seen bedside.
IA completed.
Patient lives with spouse in a 1 story home with 2 steps to enter.
Patient ambulates with a cane prior to admission.
patient stated she can drive, but does not.
Current with [facility].
Patient would prefer home with [facility].
Await updated therapy notes.
PCP; Dr Valdez
Pharmacy: [facility].
Plan: to be determined.
[2024-05-12] MEDS: ProAmatine PO (13:34)
[2024-05-12 13:45] VITALS: BP 128/82; PULSE 86
--- NOTE | 2024-05-12 14:15 | W.PN.HOSP.TC ---
Addendum entered and electronically signed by Jalyn Rosa MD 05/12/24 16:58:
I personally performed a history and physical exam of the patient and discussed management with the resident. I reviewed the resident's note and agree with the documented findings and plan of care HPI/CC except for changes in documentation.
83-year-old with generalized weakness on admission. Patient had no signs of ischemia in December 2023 resulting in subtotal colectomy end ileostomy.
CVS: S1-S2 normal
Chest: CTA B/L
Abdomen: Soft, NT
Extremities: No edema,
GORE INSERTER: No facial droop or motor deficits
Skin-right lower quadrant redness around the ostomy
Stage 3 sacral decub
# Generalized weakness and fatigue
Likely secondary to acute kidney injury/subacute CVA and multiple other medical problems
# Acute kidney injury on CKD stage III likely
Hyperkalemia
Metabolic acidosis resolved
Likely prerenal causes
IV fluids can be stopped if creat at baseline
Continue sodium bicarb tablets
Bladder scan and straight cath as needed
Avoid nephrotoxic medicines
Nephrology evaluation appreciated.
# Hypotension--continue midodrine
# Hyponatremia-salt tablets top be started per Renal
# Subacute CVA
CT in the ER with posterior right frontal and parietal stroke
PT OT evaluation
MRI of the brain-moderate acute to subacute infarct in the right parietal lobe with involvement of the posterior temporal and occipital lobes. Petechial cortical hemorrhages in the infarct region
Carotid ultrasound-no stenosis
Neurology evaluation appreciated
Discussed with Dr. Tee today-recommends Eliquis and stop aspirin.
Resident discussed with Dr. David Valdez, PCP -patient was taken off of Eliquis because she was on Diflucan for abdominal wall cellulitis
Patient's daughter does not want her to go back on Eliquis as patient had an ablation and also she thinks that the strokes which she read on the MRI was from December when patient had blood transfusion.
I had discussed reason for Eliquis with patient and this morning both were agreeable
I will request cardiology to weigh in
# Stage III sacral decubitus ulcer with possible osteomyelitis-chronic
MRI March 2024 noted
Continue wound care and offload
ID evaluation appreciated
# Abdominal wall cellulitis/peristomal area
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
Ileostomy leakage
Patient was supposed to see for flexible sigmoidoscopy 05/13/[address] López would like to hold off on sigmoidoscopy given patient's other medical conditions.
Will request to see here
Continue wound care
# Paroxysmal atrial fibrillation/A-flutter
In sinus rhythm
H/O PVI CTI flutter ablation 08/25/19
Patient did have A-fib with RVR 12/26/2023 and converted to sinus rhythm 12/29/2023 and also recurrence of A-fib again for 124 and converted to sinus rhythm 4024-as documented in previous notes.
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
Right shoulder pain-chronic
Currently on 5 mg dose
Continue current steroid dose and use stress dose if needed because of hypotension
# Stage III sacral decubitus ulcer-wound care and change position in bed
No clinical signs of osteomyelitis per infectious disease-MRI findings does not correlate clinically
No antibiotics as risk for long-term antibiotic or voice of benefit
# Chronically elevated LFTs since at least 2018 that I can see
CT scan of the liver and gallbladder without contrast in December 2023-no abnormality reported May need GI evaluation as outpatient
# Hypothyroidism-continue increased dose of Synthroid at 100 mcg
# History of enterococcal bacteremia November 2023
# Fluid distention of the endometrium measuring 5.[address]-OP knotter hand Eval
# History of trigeminal neuralgia
# History of melanoma on the right face in the past
# Diverticulosis
# Ambulator dysfunction
# Ex-smoker
# DVT prophylaxis-Eliquis
# CODE STATUS-DNR
Discussed with neurology
Discussed with at bedside
Discussed with patient's daughter on the phone
Discussed with cardiology
Discussed with wound care nurse
Resident discussed with PCP Dr. David Valdez
time spent over 58 min
Original Note:
Today's Communication/Plan
-
-restart Eliquis pending discussion with daughter
-No antibiotics needed per ID
-fluids per nephro
Assessment / Plan
Assessment / Plan
Assessment
Diya Kohli, age 83, presented to the ED complaining of generalized weakness. Patient has complicated recent history beginning with mesenteric ischemia in December 2023 resulting in subtotal colectomy / ileostomy formation. Her medical issues
since that time have included development of sacral wound and suspected underlying osteomyelitis, persistent hyponatremia, skin irritation / fungal infection surrounding ostomy, etc. Patient states that she has very poor PO intake since at least
November of this year. She has been ambulating at home with / without use of a cane. For the past several days, patient has been extremely fatigued with increased sleep, generalized weakness, etc. Today she was unable to stand or ambulate at all. She
denies any focal issues - but complains of generalized / all over weakness. Patient was evaluated by VN today and found to have low BP (systolic in the 80s) and was advised to present to the ED for further evaluation. Patient denies fevers / chills,
N/V, urinary complaints, etc. Family notes multiple med changes in the past 2 weeks including: change from Eliquis to ASA, Advil (1-2 tabs daily), decreased prednisone to 5mg daily.
Impression and plan
Generalized Weakness / Fatigue
Hypotension
- Suspect fatigue / weakness is multifactorial and due to multiple ongoing health issues.
- See below for specific issues.
CHELSEA
Hyperkalemia
Non-Gapped Metabolic Acidosis
Hyponatremia (chronic)
- Suspect secondary to hypovolemia +/- ATN due to hypotension.
- IVF support including supplemental bicarb.
- Hold sedating meds / meds that may contribute to hypotension.
- Bladder scan / straight cath is needed though doubt obstructive process.
- EKG without changes c/w hyperkalemia.
- Nephrology recommends isotonic fluids, bladder scan and continue midodrine and prednisone
- Hold nephrotoxic medications.
Subacute CVA
- CT done in the ED today shows watershed area of ischemia in the posterior R frontal / parietal area.
- Perhaps some mild LLE weakness appreciated on exam. No other evident focal deficits.
- Area of ischemia seems likely due to BP changes / hypotension / etc. Not likely an embolic issue off of Eliquis.
- ? timing to insult as patient with symptoms concerning for CVA a few months ago.
- CT was negative at that time and they elected to forego MRI.
- Continue ASA daily.
- PT recommends inpatient rehab. OT recommends fdc upon discharge
- MRI shows acute ischemic right parietal and small right insular cortex strokes, most likely thromboembolic per neurology
-Carotid US unremarkable
- Neurology recommends restarting Eliquis
-Discussion with daughter needed before re-starting Eliquis as she is against it.
- Continue midodrine as needed
Stage III Sacral Wound +/- Osteomyelitis
- Recent MRI (March 2024) shows subtle bony changes potentially c/w osteo.
- Not currently on active abx therapy.
- Continue local wound care. Mattress overlay.
- ID reviewed MRI and believe the findings are nonspecific for osteo and did not clinically correlate. Observe without antibiotics and continue wound care
Abdominal Wall Cellulitis / Fungal Infection
Ileostomy Dysfunction / Leakage
- Ongoing issue with ostomy leakage and device requiring complete change multiple times daily.
- Continue topical / local care for skin irritation / barrier treatments / etc.
- Wound / Ostomy evaluation.
- Patient is investigating options for reversal of ostomy.
-ID evaluated, peristomal dermatitis due to ostomy leakage of bowel contents, no need for antibiotics at this time. Control leakage
Right Shoulder Pain
- Patient with waxing / waning R shoulder discomfort - worse since walking with a cane.
- Family states that imaging was done previously and revealed no fracture / dislocation.
- Tylenol for pain control.
- PT / OT evals as noted above.
Paroxysmal Atrial Fibrillation
- In sinus rhythm s/p remote ablation.
- Off of Eliquis x 2 weeks
- PCP took pt off Eliquis to start diclofenac. This plan was cleared by the patient's public works inspector.
-PCP has no problem start restarting Eliquis if indicated
-Neurology recommends restarting Eliquis
-Patients daughter is hesitant to restart patient on Eliquis
-Cardiology will be consulted to evaluate patient and discuss with daughter
- Hold Cardizem given hypotension - monitor on telemetry.
Hypotension
- History of hypertension and now hypotensive on midodrine.
- Continue midodrine and avoid hypotension.
- IVFs as noted above. Follow orthostatic signs.
Hypothyroidism
- TSH 47.7 with T4 0.68 on 05-11-24.
- Increase levothyroxine to 100 mcg.
Steroid Therapy
- Patient on prednisone for the past few months for polymyalgia
- Now tapering and down to 5mg daily.
- Will continue current dose unchanged given hypotension.
- Agree with longer term plan for tapering / cessation.
- Purpura / skin changes likely secondary to combination of prednisone and Eliquis / ASA.
- Check cortisol
- Can stress dose if vitals destabilize again.
DVT Prophylaxis: SCDs
Code Status: DNR
Anticipated Discharge: > 48 hours
Subjective/Interval History
-
Date of Service: May 12, 2024
Objective Data
-
Labs:
Laboratory Results
05/12/24 05/12/24 05/12/24
07:32 08:43 09:44
WBC 9.0
Hgb 11.5 L
Hct 34.4 L
Plt Count 270
Sodium Cancelled Cancelled Pending
Potassium Cancelled Cancelled Pending
Chloride Cancelled Cancelled Pending
Carbon Dioxide Cancelled Cancelled Pending
BUN Cancelled Cancelled Pending
Creatinine Cancelled Cancelled Pending
Glucose Cancelled Cancelled Pending
Calcium Cancelled Cancelled Pending
Total Bilirubin Cancelled Cancelled Pending
AST Cancelled Cancelled Pending
ALT Cancelled Cancelled Pending
Alkaline Phosphatase Cancelled Cancelled Pending
Vital Signs:
Vital Signs
Temp Pulse Resp BP Pulse Ox
97.4 F 79 20 134/68 95
05/12/24 07:00 05/12/24 07:00 05/12/24 07:00 05/12/24 13:34 05/12/24 10:34
I&O
05/11/24 05/12/24 05/13/24
06:59 06:59 06:59
Intake Total 480 / 480 2119 / 2119
Output Total 150 / 150 100 / 100
Balance 480 / 480 1969 / 1969 -100 / -100
Review of Systems
-
History Source: Patient
Respiratory: Reports No Symptoms
Cardiac: Reports No Symptoms
Abdomen/GI: Reports No Symptoms
Genitourinary: Reports No Symptoms
Neuro: Reports No Symptoms
Physical Exam
-
Respiratory: Clear to Auscultation
Cardiac: Regular Rhythm and S1/S2
GI: Soft, Nontender, Nondistended and Ostomy
Musculoskeletal: No Edema
Skin: Warm and Dry
Neuro: AO x 3
Psych: Calm
[2024-05-12 15:00] VITALS: BP 121/78
--- NOTE | 2024-05-12 15:50 | WOUNDNOTE ---
WO RN note: Patient admitted with CHELSEA. Patient lives with and is current with ADRIANNA HERNANDEZ.
See H&P for complete history.
PMH:
Wound Location and type/assessment: Patient admitted with: stage 3 sacral pressure injury, pink with scant yellow fibrin and local erythema. MASD peristomal skin d/t frequently leaking ostomy appliance however improved since Sunday.
Appetite: poor.
Pressure redistribution devices in place: Waffle air overlay. Patient can turn in bed. Air chair cushion.
Plan: Ileostomy leaking. This medical underwriter had tried a new convex 1 piece appliance last Sunday d/t leakage (seen as an outpatient) which lasted under last night. Changed ostomy pouch using [employer] soft convex 1 piece # [id number] with Mariella seal and added
Mariella paste in peristomal skin crease above stoma and [place] ostomy belt #[id number]. Different ostomy supplies left in room. Sacral wound care done. Heels off bed with pillow. Patient turned to R semi side lying position. Instructed patient pressure
injury prevention measures.
Will confirm orders with hospitalist.
Updated care plan and will follow as needed.
--- NOTE | 2024-05-12 15:50 | WOUNDNOTE ---
SACRUM (with photo flash)
--- NOTE | 2024-05-12 15:59 | W.PN.NEPH.PH ---
Today's Communication / Plan
-
change to NS
Assessment/Plan
-
IMP:
Hypoantremia
Hyperkalemia
Non gap met acidosis
Anemia
ileostomy 12/26
Paroxysmal atrial fibrillation
Polymyalgia rheumatica by [id number]
Hypothyroidism
right CVA
CHELSEA with CKD3
Plan:
CHELSEA-cr is improving with IVF, await labs from today
suspect to be prerenal with poor intake
would change to isotonic IV with hyponatremia
U somo 437 and low U na
UA pyuria, follow bladder scan
treatment of right CVA per neuro planning AC with Eliquis
Bp stable on midodrine
continue prednisone
encourage solute intake
d/w pt and family at bedside
-
-
Date of Service: May 12, 2024
CC / HPI / ROS
-
Chief Complaint:
CHELSEA, hyperkalemia, met acidosis
History of Present Illness:
cr improving to 1.5, labs pending today
BP stable on midodrine
k better at 5.2
met acidosis is better at 19
Review of Systems:
no cp or sob
poor appetite
no n/v
walked with walker today
Labs
-
Labs:
WBC 9.0 10^3/uL (4.8-10.8) 05/12/24 07:32
RBC 3.82 10^6/uL (4.20-5.40) L 05/12/24 07:32
Hgb 11.5 g/dL (12.0-16.0) L 05/12/24 07:32
Hct 34.4 % (37.0-47.0) L 05/12/24 07:32
Plt Count 270 10^3/uL (130-400) 05/12/24 07:32
eGFR Cancelled 05/12/24 08:43
Physical Exam
-
Vital Signs:
Vital Signs
Temp Pulse Resp BP Pulse Ox
98.4 F 95 20 121/78 100
05/12/24 15:00 05/12/24 15:00 05/12/24 15:00 05/12/24 15:00 05/12/24 15:00
Cardiovascular:: Regular rate and rhythm
Respiratory:: Bilateral: CTA
Lung Excursion:: Normal
Abdomen:: Nontender and Soft
Extremity Edema:: None: Bilateral:
Keith Catheter: No
[2024-05-12 16:04] LABS: ALT (SGPT) 75 U/L (0-35); AST (SGOT) 74 U/L (14-36); Albumin 2.3 g/dl (3.5-5.0); Alkaline Phosphatase 400 U/L (38-126); Blood Urea Nitrogen 36 mg/dl (7-17); Calcium 9.3 mg/dl (8.4-10.2); Carbon Dioxide 24 mmol/L (22-30); Chloride 105 mmol/L (98-107); Estimated Creatinine Clearance 30 ml/min; Glucose 105 mg/dl (70-99); Phosphorus 2.9 mg/dl (2.5-4.5); Potassium 5.5 mmol/L (3.5-5.1); Sodium 132 mmol/L (135-145); Total Bilirubin 0.4 mg/dl (0.2-1.3); Total Cholesterol 212 mg/dl (50-199); Triglyceride 158 mg/dl (10-149); Very Low Density Lipoprotein 31 mg/dl (0-30); eGFR 55.55
[2024-05-12 16:13] LABS: HDL Cholesterol 134 mg/dl; LDL Cholesterol, Calculated 47 mg/dl
--- NOTE | 2024-05-12 16:16 | CON.CAR ---
Addendum entered and electronically signed by Maggie Benavides MD 05/12/24 17:14:
I saw and examined the patient.
The Quarry Boss's note was reviewed and I agree with the note.
Comment: I spoke with the patient and her daughter at the bedside at great length. We discussed the risks and benefits of resuming previously discontinued oral anticoagulation. We discussed at great length her stroke and MRI findings and I did
show them a picture in addition. They understand. They understand possibility of stroke recurrence. We discussed her bruising and chronic steroid use with PMR. At this point they are agreeable to proceeding with Eliquis 2.5 mg twice daily.
[place] text to neurology and we may start now. Order entered. Aspirin discontinued. They understand that in the future if they are asked to hold or discontinue oral anticoagulation they will contact our office. All questions answered.
Follow blood pressure on midodrine.
Hypothyroidism being addressed by primary service.
Telemetry stable.
Await echo
Carotid ultrasound noted without significant abnormality.
Original Note:
Consultation
Consultation Request
Date/Time Consultation Requested: 05/12/2024
Date/Time Consultation Performed: 05/12/2024
Requesting Provider: Dr. Rosa
Performing Provider: Sandy Olivera PA-C for Dr. Maggie Benavides
Reason for Consultation: CVA
Medical History
-
History of Present Illness:
HPI: Diya is an 83-year-old female with past medical history of paroxysmal atrial fibrillation and flutter status post PVI and CTI flutter ablation, sick sinus syndrome, hypertension, hyperlipidemia, GERD, hypothyroidism, and arthritis. She
presented to ER for evaluation on 05/10/2024 due to generalized weakness. She was found to have acute to subacute CVA on CT of head 05/11/2024. She reportedly had been off of Eliquis after starting Diflucan as outpatient 04/27/2024. She was seen
by neurology who recommended resuming Eliquis. Cardiology consulted for evaluation given history of atrial fibrillation and subacute CVA.
PMH:
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
Paroxysmal atrial fibrillation and typical atrial flutter
s/p PVI, CTI flutter ablation, 08/25/19
occurrence with RVR 12/26/23 then spontaneously converted to SR 12/29/23, recurred with Afib 12/31/23 and then spontaneously converted to SR again 01/01/24
Chronic Eliquis anticoagulation
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
HTN
HLD
GERD
Hypothyroidism
Arthritis
Past Medical History
Past Medical History: Other (in HPI)
Past Surgical History: Appendectomy, Bowel Resection (Total colectomy and end ileostomy 12/27/2023), Cardiac (PVI, CTI ablation 08/25/2019) and Orthopedic (right hip hemiarthroplasty 03/15/2021)
Social History
Tobacco: Former Smoker
Alcohol: None
Drug: None
Personal:
Living: Other (prior to 12/26/23 admission patient lived independently with family, was at [facility] for rehab very briefly before this readmission)
Family History
Family History: Cancer and Diabetes
Allergies / Home Medications
Allergy/AdvReac Type Severity Reaction Status Date / Time
amlodipine Allergy Nausea Verified 02/03/24 19:54
doxycycline Allergy Hives Verified 02/03/24 19:53
sulfamethoxazole Allergy Rash Verified 02/03/24 19:53
[From Bactrim]
trimethoprim [From Bactrim] Allergy Rash Verified 02/03/24 19:53
hydrocodone [From Vicodin] AdvReac Vomiting Verified 02/03/24 19:52
metoprolol [From Lopressor] AdvReac Dizzy Verified 02/03/24 19:52
�Medication �Instructions �Recorded �Confirmed �Type
diltiazem HCl 120 mg 120 mg PO DAILY #30 caps 03/24/21 05/10/24 Rx
capsule,extended release 24 hr
gabapentin 300 mg capsule 300 mg PO DAILY #30 caps 03/24/21 05/10/24 Rx
levothyroxine 75 mcg tablet 75 mcg PO DAILY@0600 Thyroid 12/26/23 05/10/24 History
ondansetron HCl 4 mg tablet 4 mg PO Q8HPRN PRN NAUSEA/VOMITING 01/04/24 05/10/24 History
miconazole nitrate 2 % topical 1 applic topical BID Skin issues 02/01/24 05/10/24 Rx
powder (Miconazorb AF) 30 days #85 grams
midodrine 5 mg tablet 10 mg (2 x 5 mg) PO 02/01/24 05/10/24 Rx
TID@0700,1300,1800 low blood
pressure 30 days #90 tabs
mirtazapine 7.5 mg tablet 7.5 mg PO HS insomnia 30 days #30 02/01/24 05/10/24 Rx
tabs
prednisone 5 mg tablet 5 mg PO DAILY arthritis 30 days 02/01/24 05/10/24 Rx
#30 tabs
acetaminophen 325 mg tablet 650 mg PO Q6HPRN PRN mild 02/03/24 05/10/24 History
pain/fever
aspirin 81 mg chewable tablet 81 mg PO DAILY Blood Clot 05/10/24 05/10/24 History
Prevention/Tx
clotrimazole 1 % topical cream 1 applic topical PRN PRN ostomy 05/10/24 05/10/24 History
(Athlete's Foot (clotrimazole))
diclofenac sodium 1 % topical gel 0 g topical QIDPRN PRN right 05/10/24 05/10/24 History
shoulder pain
ketoconazole 2 % topical cream 1 applic topical BID sacral wound 05/10/24 05/10/24 History
Review of Systems
-
History Source: Patient
All other systems: Negative unless noted
Physical Exam
Vital Signs
Temp Pulse Resp BP Pulse Ox
98.4 F 95 20 121/78 100
05/12/24 15:00 05/12/24 15:00 05/12/24 15:00 05/12/24 15:00 05/12/24 15:00
GEN: No distress, awake, Ox3, lying in bed
HEENT: supple, anicteric, mmm
LUNGS: CTA anteriorly, no wheezes/rales
CV: Reg, S1/S2, no murmur, rub or gallop
EXT: No edema, clubbing or cyanosis
NEURO: Gross non-focal
SKIN: No rash however areas of small ecchymosis of arms, legs and chest
Lab Results
05/12/24 07:32
Impression / Plan
-
PCP: Dr. David Valdez
Cardiology: Dr. Ku
Impression:
Presented with 05/10/2024 with weakness, hypotension
Acute to subacute CVA
Hyponatremia
Hyperkalemia
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
Paroxysmal atrial fibrillation and typical atrial flutter
s/p PVI, CTI flutter ablation, 08/25/19
occurrence with RVR 12/26/23 then spontaneously converted to SR 12/29/23, recurred with Afib 12/31/23 and then spontaneously converted to SR again 01/01/24
Not on anticoagulation since 04/27/2024
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
HTN
HLD
GERD
Hypothyroidism
Arthritis
FARIDA 08/19/2019: EF 60 to 65%, mild MR
Echo 12/31/23: EF 65-70%, mild conc LVH, no , mild TR with PAP 30-35 mmHg
Echo 01/09/2024: EF 65 to 70%, mild concentric LVH, trace MR, trace AI
Plan:
-Presented with weakness and found to have subacute CVA by CT of head. MRI confirmed moderate acute-subacute infarct centered in the right parietal lobe, with subtle involvement of the posterior temporal and occipital lobes. Subtle involvement of
the posterior right insular cortex. Petechial cortical hemorrhage relatively centrally situated within the infarct region
-Acute to subacute stroke occurred after Eliquis was discontinued about 2 weeks ago due to interaction with Diflucan. If in the future she needs to come off OAC for prolonged time she needs to contact cardiology office
-Known paroxysmal atrial fibrillation and typical atrial flutter. Previously anticoagulated with Eliquis 2.5 mg twice daily. This was stopped 04/27/2024 as outpatient when she was started on Diflucan.
-[id number] score 5 (age, female, CVA). Would recommend resuming anticoagulation with Eliquis 2.5 mg twice daily (age, weight). Rationale for anticoagulation was discussed in great detail with patient, patient's daughter Geoff.
They are now agreeable to reinitiate anticoagulation.
-Carotid ultrasound with less than 50% stenosis bilaterally.
-LDL 47. Not on statin.
-EKG reviewed. Sinus rhythm with PVCs. Did have brief run of PAT on tele. Diltiazem has been on hold this admission due to hypotension. Consider resuming AV chelsea blocking if BP allows.
-Blood pressures are stable. Continues on midodrine 10 mg 3 times daily.
-Elevated TSH 47.7, free T4 0.68. Adjustment of Synthroid per primary service
-Electrolyte derangement, potassium 5.5, sodium 132. Nephrology is following
Plan was reviewed with Dr. Rosa, Dr. Nay Benavides, patient patient's 2 daughters as noted above.
Data Reviewed
-
EKG: Report Reviewed by me, Discussed with Physician, Discussed with Patient and Discussed with Family
CT Scan: Report Reviewed by me, Discussed with Physician, Discussed with Patient and Discussed with Family
Ultrasound: Report Reviewed by me, Discussed with Physician, Discussed with Patient and Discussed with Family
MRI: Report Reviewed by me, Discussed with Physician, Discussed with Patient and Discussed with Family
Labs: Labs Reviewed by me, Discussed with Physician, Discussed with Patient and Discussed with Family
Old Records: Reviewed
[2024-05-12] MEDS: D5/0.9% SODIUM CHLORIDE 1000 IV (16:28)
[2024-05-12] MEDS: D5/0.45%NACL IV (17:43)
[2024-05-12 19:25] VITALS: BP 142/93
[2024-05-12] MEDS: REMERON 7.5 MG PO (20:42)
[2024-05-12] MEDS: ELIQUIS 2.5 MG PO (20:42)
[2024-05-12] MEDS: BenGay-Like TOPICAL (21:18)
[2024-05-12] MEDS: LOKELMA 10 GRAM PO (22:34)
[2024-05-12 23:00] VITALS: BP 131/87
[2024-05-13 03:00] VITALS: BP 121/73
[2024-05-13] MEDS: SYNTHROID 100 MCG PO (05:10)
[2024-05-13 06:00] VITALS: BMI 18.1
[2024-05-13 07:50] VITALS: BP 149/85
--- NOTE | 2024-05-13 07:56 | W.PN.NEURO.1 ---
Today's Communication / Plan
-
Would not start atorvastatin although elevated total cholesterol level because of normal LDL and absence of significant intracranial stenosis with presence of elevated LFTs which could be minimally worsened by the addition of that medication
Appreciate cardiology assistance with replacing aspirin with apixaban
Continue midodrine
Neuro Assessment/Plan
Assessment
83 year old female who has presented to the hospital with onset of left sided weakness and prior history of paroxysmal A-Fib
Found to have acute ischemic right parietal and small right insular cortex strokes by MRI, most likely thromboembolic based on the patient's prior history of atrial fibrillation and use of aspirin instead of anticoagulation
Patient was not a candidate for either intra-arterial thrombectomy or tenecteplase due to timeframe out of window
Plan
Would not start atorvastatin although elevated total cholesterol level because of normal LDL and absence of significant intracranial stenosis with presence of elevated LFTs which could be minimally worsened by the addition of that medication
Appreciate cardiology assistance with replacing aspirin with apixaban
Continue midodrine
Will follow as needed.
Subjective/Objective
Subjective Data
Date of Service: May 13, 2024
Objective Data
Vital Signs
Temp Pulse Resp BP Pulse Ox
36.4 C 77 18 121/73 98
05/13/24 03:00 05/13/24 03:00 05/13/24 03:00 05/13/24 03:00 05/13/24 03:00
Sodium Cancelled 05/12/24 16:01
Potassium Cancelled 05/12/24 16:01
BUN Cancelled 05/12/24 16:01
Glucose Cancelled 05/12/24 16:01
Calcium Cancelled 05/12/24 16:01
Phosphorus 2.9 mg/dl (2.5-4.5) 05/12/24 15:10
LDL Cholesterol, Calc 47 mg/dl 05/12/24 15:10
Patient Allergies
amlodipine Allergy (Verified 02/03/24 19:54)
Nausea
doxycycline Allergy (Verified 02/03/24 19:53)
Hives
hydrocodone [From Vicodin] Allergy (Verified 05/12/24 16:46)
Vomiting
metoprolol [From Lopressor] Allergy (Verified 05/12/24 16:46)
Dizzy
sulfamethoxazole [From Bactrim] Allergy (Verified 02/03/24 19:53)
Rash
trimethoprim [From Bactrim] Allergy (Verified 02/03/24 19:53)
Rash
Data Reviewed
-
Carotid Ultrasound: Report Reviewed
Labs: Report Reviewed
Lipid Profile: Report Reviewed
[2024-05-13] MEDS: ELIQUIS 2.5 MG PO (07:58)
[2024-05-13] MEDS: DELTASONE 5 MG PO (07:58)
[2024-05-13] MEDS: NEURONTIN 100 MG PO ×2 (07:58→16:26)
[2024-05-13] MEDS: BenGay-Like 1 APPLIC TOPICAL (07:58)
--- NOTE | 2024-05-13 09:33 | PN.CDI ---
CDI
- -
CDI:
Physician Documentation Request
Admit Date: 05/10/24 21:58
Dear Doctor Kennedy,
Please review the following and provide your response in the progress notes.
Clinical Indicators:
- 05/11 ID 'Peristomal dermatitis due to ostomy leakage of bowel contents...no need for abx'
- 05/12 PN 'Abdominal wall cellulitis/peristomal area'
In an attempt to clarify potentially conflicting documentation, please clarify the abdominal wall diagnosis:
Dermatitis related to ostomy leakage
Cellulitis of abdominal wall
Other
Use of terms such as suspected, likely, concern for, or probable (associated with a specific diagnosis that is being evaluated, monitored, or treated as if it exists) are acceptable and can be coded in the inpatient setting, when documented at the
time of discharge.
Thank you,
Javed Winter RN
CDI Specialist
Please use your independent medical judgment in providing your response.
--- NOTE | 2024-05-13 09:40 | PN.CDI ---
CDI
- -
CDI:
Physician Documentation Request
Admit Date: 05/10/24 21:58
Dear Doctor Kennedy,
Please review the following and provide your response in the progress notes.
Clinical Indicators:
Height: 5'3
Weight: 100lbs
BMI: 17.8
- 05/11 Rn First Assistant indicates underweight
- 05/12 PN 'Stage 3 sacral decub'
If possible, please provide an associated diagnosis related to the abnormal BMI, such as:
Underweight
Cachectic
BMI is not significant
Other
Use of terms such as suspected, likely, concern for, or probable (associated with a specific diagnosis that is being evaluated, monitored, or treated as if it exists) are acceptable and can be coded in the inpatient setting, when documented at the
time of discharge.
Thank you,
Javed Winter RN
CDI Specialist
Please use your independent medical judgment in providing your response.
[2024-05-13 11:17] LABS: % Basophils 0.9 % (0-2); % Eosinophils 2.7 % (0-6); % Immature Granulocytes 0.6 % (0-0.5); % Lymphocytes 6.3 % (20.5-51.1); % Monocytes 7.8 % (1.7-9.3); % Neutrophils 81.7 % (42.2-75.2); Absolute Basophils 0.1 10^3/uL (0-0.2); Absolute Eosinophils 0.3 10^3/uL (0-0.7); Absolute Immature Granulocytes 0.1 10^3/uL (0-0.05); Absolute Lymphocytes 0.7 10^3/uL (1.2-3.4); Absolute Monocytes 0.9 10^3/uL (0.1-0.6); Absolute Neutrophils 8.9 10^3/uL (1.4-6.5); Hematocrit 35.2 % (37.0-47.0); Mean Corp Hgb Conc. 34.1 g/dL (33.0-37.0); Mean Corpuscular Hgb 30.4 pg (27.0-31.0); Mean Corpuscular Volume 89.1 fL (81.0-99.0); Mean Platelet Volume 10.7 fL (7.4-10.4); Nucleated Red Blood Cells % 0 %; Platelet Count 287 10^3/uL (130-400); Red Blood Cell Count 3.95 10^6/uL (4.20-5.40); Red Cell Dist. Width 16.7 % (11.5-14.5); White Blood Cell Count 10.9 10^3/uL (4.8-10.8)
[2024-05-13 11:40] VITALS: BP 139/78
--- NOTE | 2024-05-13 11:43 | W.PN.CARDCBS ---
Today's Communication / Plan
-
Continue Eliquis 2.5 mg twice a day
Resume diltiazem 120 mg daily
Outpatient cardiology follow-up arranged
Impression / Plan
-
PCP: Dr. David Valdez
Cardiology: Dr. Ku
Impression:
Presented with 05/10/2024 with weakness, hypotension
Acute to subacute CVA
Hyponatremia
Hyperkalemia
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
Paroxysmal atrial fibrillation and typical atrial flutter
s/p PVI, CTI flutter ablation, 08/25/19
occurrence with RVR 12/26/23 then spontaneously converted to SR 12/29/23, recurred with Afib 12/31/23 and then spontaneously converted to SR again 01/01/24
Not on anticoagulation since 04/27/2024
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
HTN
HLD
GERD
Hypothyroidism
Arthritis
FARIDA 08/19/2019: EF 60 to 65%, mild MR
Echo 12/31/23: EF 65-70%, mild conc LVH, no , mild TR with PAP 30-35 mmHg
Echo 01/09/2024: EF 65 to 70%, mild concentric LVH, trace MR, trace AI
Plan:
-Presented 05/10/2024 with weakness and found to have subacute CVA by CT of head. MRI confirmed moderate acute-subacute infarct centered in the right parietal lobe, with subtle involvement of the posterior temporal and occipital lobes. Subtle
involvement of the posterior right insular cortex. Petechial cortical hemorrhage relatively centrally situated within the infarct region
-Acute to subacute stroke occurred after Eliquis was discontinued about 2 weeks ago due to interaction with Diflucan.
-[id number] score 5 (age, female, CVA). After prolonged conversation with the patient and family (2 daughters) agreeable to resume anticoagulation with Eliquis 2.5 mg twice daily (age, weight). Resumed evening of 05/12/2024 after clearance
provided by neurology
-Carotid ultrasound with less than 50% stenosis bilaterally.
-LDL 47. Not on statin. Per neurology no need for statin at this time
-EKG reviewed. Sinus rhythm with PVCs. Did have brief run of PAT on tele. Diltiazem has been on hold this admission due to hypotension.
-Blood pressure has improved. Will resume diltiazem 120 mg daily.
-Continues on midodrine 10 mg 3 times daily. (was on prior to admission)
-Elevated TSH 47.7, free T4 0.68. Adjustment of Synthroid per primary service
-Electrolyte derangement, potassium 5.5, sodium 132 on 05/12/24. Repeat labs pending. Nephrology is following
Progress Note - [employer]
Subjective
Date of Service: May 13, 2024
Patient seen and examined. Patient resting comfortably in bed. Reports feeling well without cardiac symptoms including chest pain, shortness of breath, dizziness or lightheadedness.
Objective
Labs:
05/13/24 10:42
Labs
Hgb 12.0 g/dL (12.0-16.0) 05/13/24 10:42
Hct 35.2 % (37.0-47.0) L 05/13/24 10:42
Plt Count 287 10^3/uL (130-400) 05/13/24 10:42
Sodium Cancelled 05/12/24 16:01
Potassium Cancelled 05/12/24 16:01
BUN Cancelled 05/12/24 16:01
Creatinine Cancelled 05/12/24 16:01
Glucose Cancelled 05/12/24 16:01
Vital Signs and I&O:
Vital Signs
Temp Pulse Resp BP Pulse Ox
97.6 F 101 18 149/85 90
05/13/24 07:50 05/13/24 07:50 05/13/24 07:50 05/13/24 07:50 05/13/24 07:50
Vital Signs
Temp Pulse Resp BP Pulse Ox
97.6 F 101 18 149/85 90
05/13/24 07:50 05/13/24 07:50 05/13/24 07:50 05/13/24 07:50 05/13/24 07:50
Intake & Output
05/11/24 05/12/24 05/13/24 05/14/24
06:59 06:59 06:59 06:59
Intake Total 480 / 480 2120 / 2120 1300 / 1300
Output Total 150 / 150 100 / 100
Balance 480 / 480 1970 / 1970 1200 / 1200
Physical Exam
Physical Exam
GEN: No distress, awake, Ox3, lying in bed
HEENT: supple, anicteric, mmm
LUNGS: CTA anteriorly, no wheezes/rales
CV: Reg, S1/S2, no murmur, rub or gallop
EXT: No edema, clubbing or cyanosis
NEURO: Gross non-focal
SKIN: No rash however areas of small ecchymosis of arms, legs and chest
[2024-05-13] MEDS: CARDIZEM CD 120 MG PO (12:32)
[2024-05-13] MEDS: ProAmatine 10 MG PO ×2 (12:33→17:40)
[2024-05-13 12:54] LABS: Free T4 0.68 ng/dl (0.78-2.19)
[2024-05-13 13:01] LABS: ALT (SGPT) 71 U/L (0-35); AST (SGOT) 73 U/L (14-36); Albumin 3.4 g/dl (3.5-5.0); Alkaline Phosphatase 386 U/L (38-126); Blood Urea Nitrogen 24 mg/dl (7-17); Calcium 9.5 mg/dl (8.4-10.2); Carbon Dioxide 24 mmol/L (22-30); Chloride 108 mmol/L (98-107); Direct Bilirubin 0.2 mg/dl (0.0-0.4); Estimated Creatinine Clearance 34 ml/min; Glucose 144 mg/dl (70-99); Potassium 4.1 mmol/L (3.5-5.1); Sodium 135 mmol/L (135-145); Total Bilirubin 0.5 mg/dl (0.2-1.3); Total Protein 5.9 g/dl (6.3-8.2); eGFR > 60.00
--- NOTE | 2024-05-13 13:37 | CM ---
Patient seen at bedside with .
IMM explained and signed.
spoke with Joyce from [facility] regarding bed availability.
Bed available today.
tt to Dr. Rosa
PLAN: Discharge to [facility] when stable.
Report: [phone]
--- NOTE | 2024-05-13 14:51 | W.PN.HOSP.TC ---
Addendum entered and electronically signed by Jalyn Rosa MD 05/14/24 08:17:
underweight
dermatitis related to stomal leakage
Addendum entered and electronically signed by Jalyn Rosa MD 05/13/24 15:25:
I personally performed a history and physical exam of the patient and discussed management with the resident. I reviewed the resident's note and agree with the documented findings and plan of care HPI/CC except for changes in documentation.
83-year-old with generalized weakness on admission.
CVS: S1-S2 normal
Chest: CTA B/L
Abdomen: Soft, NT
Extremities: No edema,
ANALYST GEOCHEMICAL PROSPECTING: No facial droop or motor deficits
Skin-right lower quadrant redness around the ostomy
Stage 3 sacral decub
# Generalized weakness and fatigue
Likely secondary to acute kidney injury/subacute CVA and multiple other medical problems
# Acute kidney injury on CKD stage III likely
Hyperkalemia resolved.
Metabolic acidosis resolved
Likely prerenal causes
Avoid nephrotoxic medicines
Nephrology evaluation appreciated.
# Hypotension--Continue midodrine
# Hyponatremia-resolved
# Subacute CVA
CT in the ER with posterior right frontal and parietal stroke
MRI of the brain-moderate acute to subacute infarct in the right parietal lobe with involvement of the posterior temporal and occipital lobes. Petechial cortical hemorrhages in the infarct region
Carotid ultrasound-no stenosis
Discussed with Dr. Tee -recommends Eliquis and stop aspirin.
Resident discussed with Dr. David Valdez, PCP -patient was taken off of Eliquis because she was on Diflucan for abdominal wall cellulitis
Pt and Family agreeable to restart Eliquis after talking to Cardiology.
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
# Stage III sacral decubitus ulcer with possible osteomyelitis-chronic
MRI March 2024 noted
Continue wound care and offload
ID evaluation appreciated
# Abdominal wall cellulitis/peristomal area
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
Ileostomy leakage
Patient was supposed to see for flexible sigmoidoscopy 05/13/[address] López would like to hold off on sigmoidoscopy given patient's other medical conditions.
Continue wound care
Needs flexible sigmoidoscopy as outpatient. PCP aware
# Paroxysmal atrial fibrillation/A-flutter
In sinus rhythm
H/O PVI CTI flutter ablation 08/25/19
Patient did have A-fib with RVR 12/26/2023 and converted to sinus rhythm 12/29/2023 and also recurrence of A-fib again for 124 and converted to sinus rhythm 4024-as documented in previous notes.
Pt and family agreed to restart Eliquis and restarted.
Cardizem to be restarted
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
Right shoulder pain-chronic
Currently on 5 mg dose
Continue current steroid dose and use stress dose if needed because of hypotension
# Stage III sacral decubitus ulcer-wound care and change position in bed
No clinical signs of osteomyelitis per infectious disease-MRI findings does not correlate clinically
No antibiotics as risk for long-term antibiotic
# Chronically elevated LFTs since at least 2018 that I can see
CT scan of the liver and gallbladder without contrast in December 2023-no abnormality reported GI evaluation as outpatient
USS cholelithiasis - Cholelithiasis with small gallbladder polyps, latter measuring 0.3 - 0.4 cm in greatest dimension. No gallbladder wall thickening or biliary tract dilatation. Negative sonographic Carpio's sign.
I have reached out to GI who will schedule an appointment as outpatient. I have also sent a text to primary physician that she needs further workup as outpatient. I have also discussed this with patient's daughter
Also see that she may not be vaccinated against hepatitis B. Can be addressed as outpatient.
# Hypothyroidism-continue increased dose of Synthroid at 100 mcg
# History of enterococcal bacteremia November 2023
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 Discussed with patient's daughter as well as PCP
# History of trigeminal neuralgia
# History of melanoma on the right face in the past
# Diverticulosis
# Ambulator dysfunction
# Ex-smoker
# DVT prophylaxis-Eliquis
# CODE STATUS-DNR
Discussed with patient's at bedside
Discussed with nursing
Discussed with case management
Discussed with cardiology and neurology
Called daughter daughter Theresa-went to message. Called daughter Jaylin and updated regarding need for outpatient CONVICT GUARD eval, outpatient GI eval, thyroid medicine adjustments
Also reached out to Dr. David Valdez regarding follow-up needs
Reached out to GI to schedule an outpatient appointment.
Total discharge coordination time 45 min
Original Note:
Today's Communication/Plan
-
Discharged to [facility]
Continue Eliquis
Resume diltiazem 120
Continue wound care
Assessment / Plan
Assessment / Plan
Assessment
Diya Kohli, age 83, presented to the ED complaining of generalized weakness. Patient has complicated recent history beginning with mesenteric ischemia in December 2023 resulting in subtotal colectomy / ileostomy formation. Her medical issues
since that time have included development of sacral wound and suspected underlying osteomyelitis, persistent hyponatremia, skin irritation / fungal infection surrounding ostomy, etc. Patient states that she has very poor PO intake since at least
November of this year. She has been ambulating at home with / without use of a cane. For the past several days, patient has been extremely fatigued with increased sleep, generalized weakness, etc. Today she was unable to stand or ambulate at all. She
denies any focal issues - but complains of generalized / all over weakness. Patient was evaluated by VN today and found to have low BP (systolic in the 80s) and was advised to present to the ED for further evaluation. Patient denies fevers / chills,
N/V, urinary complaints, etc. Family notes multiple med changes in the past 2 weeks including: change from Eliquis to ASA, Advil (1-2 tabs daily), decreased prednisone to 5mg daily.
Impression and plan
# Generalized weakness and fatigue
Likely secondary to acute kidney injury/subacute CVA and multiple other medical problems
PT recommended inpatient rehab. Patient discharged to [facility]
# Acute kidney injury on CKD stage III likely
Hyperkalemia
Metabolic acidosis resolved
Likely prerenal causes
IV fluids stopped because creat at baseline
Sodium bicarb tablets stopped per nephro
Bladder scan and straight cath as needed
Avoid nephrotoxic medicines
Nephrology evaluation appreciated.
# Hypotension--continue midodrine
# Hyponatremia-resolved
# Subacute CVA
CT in the ER with posterior right frontal and parietal stroke
PT OT evaluation
MRI of the brain-moderate acute to subacute infarct in the right parietal lobe with involvement of the posterior temporal and occipital lobes. Petechial cortical hemorrhages in the infarct region
Carotid ultrasound-no stenosis
Neurology evaluation appreciated
Discussed with Dr. Tee today-recommends Eliquis and stop aspirin.
Resident discussed with Dr. David Valdez, PCP -patient was taken off of Eliquis because she was on Diflucan for abdominal wall cellulitis
Eliquis restarted after discussion with cardiology, daughter, patient and
# Stage III sacral decubitus ulcer-wound care
MRI March 2024 noted mild bone marrow edema where osteomyelitis could not be ruled out. ID consulted and believe it is not specific for osteo and does not clinically correlate.
Continue wound care without antibiotics per ID and offload
Encouraged improved nutritional status to promote wound healing
# Abdominal wall cellulitis/peristomal area
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
Ileostomy leakage
Patient was supposed to see for flexible sigmoidoscopy 05/13/[address] López would like to hold off on sigmoidoscopy given patient's other medical conditions. Will follow up in outpatient
Continue wound care
# Paroxysmal atrial fibrillation/A-flutter
In sinus rhythm
H/O PVI CTI flutter ablation 08/25/19
Patient did have A-fib with RVR 12/26/2023 and converted to sinus rhythm 12/29/2023 and also recurrence of A-fib again for 124 and converted to sinus rhythm 4023-as documented in previous notes.
Started Eliquis
Resume diltiazem 120 per cards
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
Right shoulder pain-chronic
Currently on 5 mg dose
Continue current steroid dose. No stress dose needed per nephro
# Chronically elevated LFTs since at least 2018 that I can see
CT scan of the liver and gallbladder without contrast in December 2023-no abnormality reported
Abdominal US revealed Cholelithiasis with small gallbladder polyps, latter measuring 0.3 - 0.4 cm in greatest dimension. No gallbladder wall thickening or biliary tract dilatation. Negative sonographic Carpio's sign. Pancreas, abdominal aorta and
IVC significantly obscured, most likely by overlying bowel gas.
PCP contacted. Alk Phos mildly elevated 140-150 chronically from [id number] with AST ALT in the 40 range during that time
Follow-up in outpatient
# Hypothyroidism-continue increased dose of Synthroid at 100 mcg
# History of enterococcal bacteremia November 2023
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
# History of trigeminal neuralgia
# History of melanoma on the right face in the past
# Diverticulosis
# Ambulator dysfunction
# Ex-smoker
# Low BMI -encouraged improved nutritional status + Ensure
# DVT prophylaxis-Eliquis
# CODE STATUS-DNR
DVT Prophylaxis: SCDs
Code Status: DNR
Anticipated Discharge: Today
Subjective/Interval History
-
Date of Service: May 13, 2024
Objective Data
-
Labs:
Laboratory Results
05/13/24 05/13/24
10:42 12:11
WBC 10.9 H
Hgb 12.0
Hct 35.2 L
Plt Count 287
Sodium Cancelled 135
Potassium Cancelled 4.1 D
Chloride Cancelled 108 H
Carbon Dioxide Cancelled 24
BUN Cancelled 24 H
Creatinine Cancelled 0.9
Glucose Cancelled 144 H
Calcium Cancelled 9.5
Total Bilirubin Cancelled 0.5
AST Cancelled 73 H
ALT Cancelled 71 H
Alkaline Phosphatase Cancelled 386 H
Vital Signs:
Vital Signs
Temp Pulse Resp BP Pulse Ox
97.5 F 89 18 139/78 98
05/13/24 11:40 05/13/24 11:40 05/13/24 11:40 05/13/24 11:40 05/13/24 11:40
I&O
05/12/24 05/13/24 05/14/24
06:59 06:59 06:59
Intake Total 2120 / 2120 1300 / 1300
Output Total 150 / 150 100 / 100
Balance 1969 / 1969 1200 / 1200
Review of Systems
-
History Source: Patient
Respiratory: Reports No Symptoms
Cardiac: Reports No Symptoms
Abdomen/GI: Reports No Symptoms
Genitourinary: Reports No Symptoms
Skin: Reports Other (sacral wound)
Neuro: Reports No Symptoms
Physical Exam
-
General: No Apparent Distress
Respiratory: Clear to Auscultation
Cardiac: Regular Rhythm and S1/S2
GI: Soft, Nontender, Nondistended and Ostomy
Musculoskeletal: No Edema
Skin: Other (sacral wound)
Neuro: AO x 3
Psych: Calm
--- NOTE | 2024-05-13 15:11 | W.DCSUMMARY ---
Documented by User: Philly Benavides MD, Resident 05/13/24 16:04
Discharge Summary
Discharge Data
Date of Admission: 05/10/24
Date of Discharge: 05/13/24
-
Pending Results: No
Hospital Course
Primary diagnosis:
Subacute CVA
Acute kidney injury
Hypotension on midodrine
Hyponatremia
Stage III sacral decubitus ulcer
Abdominal wall irritation secondary to stomal leak
Paroxysmal atrial fibrillation
Secondary diagnosis:
Chronic steroid therapy for PMR
Chronically elevated LFTs
Hypothyroidism
Ambulatory dysfunction
Diverticulosis
History of trigeminal neuralgia
Hospital course:
Diya is an 83-year-old female with a past medical history of mesenteric ischemia, paroxysmal A-fib and hypertension who presented to the ED with generalized weakness. In December 2023 she had a subtotal colectomy/ileostomy formation due to
mesenteric ischemia. Her medical issues since that time have included development of sacral wound and suspected underlying osteomyelitis, persistent hyponatremia, skin irritation / fungal infection surrounding ostomy. Patient stated that she has
very poor PO intake since at least November of this year. She had been ambulating at home with/ without use of a cane but grew progressively weak to the point of being unable to ambulate. In the ED she was found to have hypotension with systolic blood
pressure in the 80s. Labs showed hyperkalemia 6.6, elevated creatinine at 2.1, BUN 88, sodium 130, carbon dioxide 12 and elevated LFTs AST 79, ALT 87, alk phos 460. Head CT revealed subacute ischemic watershed infarct of the junction of the
posterior right frontal lobe and right parietal lobe (see below). Chest x-ray negative. Patient was given fluids, antihypertensives held, and admitted. Of note patient was taken off Eliquis and put on aspirin 2 weeks prior as she started
diclofenac for suspected fungal infection at ostomy sight. Her research neuropsychologist agreed to this plan. She had also previously been on 10 mg prednisone daily for polymyalgia but decreased to 5 mg daily 2 weeks ago. Neurology, nephrology, and infectious
disease were consulted. Neurology believes stroke was caused by a thromboembolic event ordered an MRI, repeat head CT with contrast and carotid ultrasound. MRI and head CT consistent with original CT (see below). Carotid ultrasound negative.
Neurologist recommended restarting Eliquis and against starting atorvastatin due to thromboembolic etiology suspected, elevated LFTs and LDL 47. Patient's family was originally against starting Eliquis. After long discussion with patient's
daughter and consult with cardiology, patient agreed to start Eliquis. For the patient's CHELSEA and hypotension, IVF support including supplemental bicarb was given and nephrotoxic medications were put on hold. Nephrology recommended continuation of
home dose prednisone 5 mg with no stress dose needed, to continue midodrine to stabilize BP, and sodium bicarb tablets were given for anion gap metabolic acidosis. Nephrology later gave isotonic fluids. Patient's electrolytes stabilized and
creatinine returned to baseline. ID evaluated sacral wound and rash around ostomy. MRI finding of mild bone marrow edema was not specific for osteo and did not clinically correlate. ID recommended observation, wound care, and improved nutritional
status rather than long-term antibiotics. ID also noted peristomal dermatitis due to ostomy leakage of bowel contents rather than fungal infection and recommended control of leakage and no need for antibiotics/antifungals. Cardiology also saw the
patient for evaluation of history of Paroxysmal atrial fibrillation and to discuss Eliquis treatment with the family. Patient's EKG showed sinus rhythm with PVCs. She did have a brief run of PAT on telemetry. Diltiazem had been on hold during
admission due to hypotension. Cardiology recommended restarting diltiazem 120 when blood pressure improved, to continue on midodrine, and to restart Eliquis. Patient has had a history of elevated LFTs since 2017, however has no additional workup
done for them. Abdominal ultrasound in hospital showed Cholelithiasis but no acute findings. Recommended to follow-up in outpatient. In addition patient had elevated TSH of 47.7, free T4 of 0.68. Patient was put on 100 mg Synthroid.
Today, the patient is clinically stable. PT recommended skilled inpatient rehab for generalized weakness and patient was discharged to [facility]. She will continue on Eliquis, diltiazem, midodrin, prednisone and increased levothyroxine dose. Patient
recommended to follow-up with GI in outpatient.
Head CT impression : Subacute ischemic watershed infarct at the junction of the posterior right frontal lobe and right parietal lobe. No significant mass effect. No midline shift. No acute intracranial hemorrhage.
MRI Impression: Moderate acute-subacute infarct centered in the right parietal lobe, with subtle involvement of the posterior temporal and occipital lobes. Subtle involvement of the posterior right insular cortex. No midline shift. No herniation.
Petechial cortical hemorrhage relatively centrally situated within the infarct region.
Head CT with contrast findings: Moderate region of confluent diminished attenuation associated with loss of garcia-white differentiation and cerebral sulcal effacement, consistent with subacute watershed infarct is stable. No acute intracranial
hemorrhage. No midline shift. No herniation. No other significant interval change. Stable
Vascular US: Relatively low velocities diffusely. Negative for flow-limiting carotid stenosis. By velocity criteria, any internal carotid artery stenosis present is in the range of 0-49%.
Abdominal US: Cholelithiasis with small gallbladder polyps, latter measuring 0.3 - 0.4 cm in greatest dimension. No gallbladder wall thickening or biliary tract dilatation. Negative sonographic Carpio's sign. Pancreas, abdominal aorta and IVC
significantly obscured, most likely by overlying bowel gas.
Discharge Plan
-
Patient Disposition: Acute Rehab Facility
Discharge Diagnosis/Procedures: Subacute CVA
Acute kidney injury
Hypotension on midodrine
Hyponatremia
Stage III sacral decubitus ulcer
Abdominal wall irritation secondary to stomal leak
Paroxysmal atrial fibrillation
Chronic steroid therapy for PMR
Chronically elevated LFTs
Hypothyroidism
Ambulatory dysfunction
Diverticulosis
History of trigeminal neuralgia
Diet: As tolerated
Activity: With assistance and As tolerated
Driving Restrictions: No driving
Blood Work: TSH and T4 in 4 to 6 weeks
Other Services: PT and OT
Activity Restrictions/Additional Instructions:
Wound Care Instructions
Sacral ulcer-clean with saline, no sting barrier wipe or zinc barrier ointment to surrounding skin, honey gel, alginate, silicone border foam, change daily and as needed for drainage. Or resume prior wound care as ordered by [facility].
Miconazole powder to yeasty peristomal skin followed by no sting barrier wipe with each wafer change.
Pressure redistributing chair cushion (i.e. Roho chair cushion).
Ileostomy pouch-Convatec soft 1 piece convex appliance #[id number] with a flattened Mariella seal with ostomy belt. Apply Mariella paste to peristomal crease prior to pouch and [place] belt #[id number]. Change 2 times a week and as needed for leakage.
Follow up with Dr. López.
Change position in bed every 2 hours to offload back
Follow up at wound care center call for an appointment.
Outpatient [employer] exam -for abnormal appearing uterus on MRI from March 2024
Outpatient follow-up with GI doctor to workup abnormal liver function tests. GI office may contact you if not please contact GI office for appointment
Consider vaccination against hepatitis B
Referrals:
Jennifer Cabrera CRNP [Specified Professional Personl] - 06/12/24 1:00 pm (You have cardiology follow-up with RAPHAEL Santana on June 12 at 1 PM in [address] [facility]. If you are unable to make this appointment please call
[phone] to reschedule)
Shaw Pepper MD [Active] -
Laury Chin MD [Active] - (call GI to arrange follow up for elevated LFT's 4-6 weeks )
Maggie Benavides MD [Active] -
David Valdez MD [Family Provider] -
Additional Discharge Medication Instructions: Synthroid dose was increased. Stop ASA
Prescriptions:
New
Eliquis 2.5 mg Tablet
2.5 mg PO BID Qty: 0 0RF
gabapentin 100 mg Capsule
100 mg PO TID Qty: 0 0RF
levothyroxine 100 mcg Tablet
100 mcg PO DAILY@0600 Qty: 0 0RF
Continued
ondansetron HCl 4 mg Tablet
4 mg PO Q8HPRN PRN (Reason: NAUSEA/VOMITING)
clotrimazole [Athlete's Foot (clotrimazole)] 1 % cream
1 applic topical PRN PRN (Reason: ostomy)
diclofenac sodium 1 % gel
0 g topical QIDPRN PRN (Reason: right shoulder pain)
acetaminophen 325 mg Tablet
650 mg PO Q6HPRN PRN (Reason: mild pain) Qty: 0 0RF
diltiazem HCl 120 MG capsule,extended release 24hr
120 mg PO DAILY Qty: 30 0RF
prednisone 5 mg Tablet
5 mg PO DAILY 30 Days Qty: 30 0RF
midodrine 5 mg Tablet
10 mg PO TID@0700,1300,1800 30 Days Qty: 90 0RF
mirtazapine 7.5 mg Tablet
7.5 mg PO HS 30 Days Qty: 30 0RF
Discontinued
levothyroxine 75 MCG tablet
75 mcg PO DAILY@0600
aspirin 81 mg Tablet,Chewable
81 mg PO DAILY
ketoconazole 2 % cream
1 applic TOPICAL BID
gabapentin 300 MG capsule
300 mg PO DAILY Qty: 30 0RF
miconazole nitrate [Miconazorb AF] 2 % Powder
1 applic topical BID 30 Days Qty: 85 0RF
Patient Comments:
apply to skin surrounding ostomy bag prior to bag replacement and underneath both breast
Rx Instructions:
* NEED POWDER* 1 bottle
Discharge Orders:
Discharge Patient (As Directed); Ordered 05/13/24
Ordered By: Philly Benavides
Discharge Date and Time
Discharge Date/Time: 05/13/24 19:05
Print Language: MALAYSIAN

Documented by User: Jalyn Rosa MD 05/14/24 08:17
Discharge Summary
Discharge Data
Date of Admission: 05/10/24
Date of Discharge: 05/14/24
Discharge Plan
-
Patient Disposition: Acute Rehab Facility
Discharge Diagnosis/Procedures: Subacute CVA
Acute kidney injury
Hypotension on midodrine
Hyponatremia
Stage III sacral decubitus ulcer
Abdominal wall irritation secondary to stomal leak
Paroxysmal atrial fibrillation
Chronic steroid therapy for PMR
Chronically elevated LFTs
Hypothyroidism
Ambulatory dysfunction
Diverticulosis
History of trigeminal neuralgia
Diet: As tolerated
Activity: With assistance and As tolerated
Driving Restrictions: No driving
Blood Work: TSH and T4 in 4 to 6 weeks
Other Services: PT and OT
Activity Restrictions/Additional Instructions:
Wound Care Instructions
Sacral ulcer-clean with saline, no sting barrier wipe or zinc barrier ointment to surrounding skin, honey gel, alginate, silicone border foam, change daily and as needed for drainage. Or resume prior wound care as ordered by [facility].
Miconazole powder to yeasty peristomal skin followed by no sting barrier wipe with each wafer change.
Pressure redistributing chair cushion (i.e. Roho chair cushion).
Ileostomy pouch-Convatec soft 1 piece convex appliance #[id number] with a flattened Mariella seal with ostomy belt. Apply Mariella paste to peristomal crease prior to pouch and [place] belt #[id number]. Change 2 times a week and as needed for leakage.
Follow up with Dr. López.
Change position in bed every 2 hours to offload back
Follow up at wound care center call for an appointment.
Outpatient [employer] exam -for abnormal appearing uterus on MRI from March 2024
Outpatient follow-up with GI doctor to workup abnormal liver function tests. GI office may contact you if not please contact GI office for appointment
Consider vaccination against hepatitis B
Referrals:
Jennifer Cabrera CRNP [Specified Professional Personl] - 06/12/24 1:00 pm (You have cardiology follow-up with RAPHAEL Santana on June 12 at 1 PM in [address] [facility]. If you are unable to make this appointment please call
[phone] to reschedule)
Shaw Pepper MD [Active] -
Laury Chin MD [Active] - (call GI to arrange follow up for elevated LFT's 4-6 weeks )
Maggie Benavides MD [Active] -
David Valdez MD [Family Provider] -
Additional Discharge Medication Instructions: Synthroid dose was increased. Stop ASA
Prescriptions:
New
Eliquis 2.5 mg Tablet
2.5 mg PO BID Qty: 0 0RF
gabapentin 100 mg Capsule
100 mg PO TID Qty: 0 0RF
levothyroxine 100 mcg Tablet
100 mcg PO DAILY@0600 Qty: 0 0RF
Continued
ondansetron HCl 4 mg Tablet
4 mg PO Q8HPRN PRN (Reason: NAUSEA/VOMITING)
clotrimazole [Athlete's Foot (clotrimazole)] 1 % cream
1 applic topical PRN PRN (Reason: ostomy)
diclofenac sodium 1 % gel
0 g topical QIDPRN PRN (Reason: right shoulder pain)
acetaminophen 325 mg Tablet
650 mg PO Q6HPRN PRN (Reason: mild pain) Qty: 0 0RF
diltiazem HCl 120 MG capsule,extended release 24hr
120 mg PO DAILY Qty: 30 0RF
prednisone 5 mg Tablet
5 mg PO DAILY 30 Days Qty: 30 0RF
midodrine 5 mg Tablet
10 mg PO TID@0700,1300,1800 30 Days Qty: 90 0RF
mirtazapine 7.5 mg Tablet
7.5 mg PO HS 30 Days Qty: 30 0RF
Discontinued
levothyroxine 75 MCG tablet
75 mcg PO DAILY@0600
aspirin 81 mg Tablet,Chewable
81 mg PO DAILY
ketoconazole 2 % cream
1 applic TOPICAL BID
gabapentin 300 MG capsule
300 mg PO DAILY Qty: 30 0RF
miconazole nitrate [Miconazorb AF] 2 % Powder
1 applic topical BID 30 Days Qty: 85 0RF
Patient Comments:
apply to skin surrounding ostomy bag prior to bag replacement and underneath both breast
Rx Instructions:
* NEED POWDER* 1 bottle
Discharge Orders:
Discharge Patient (As Directed); Ordered 05/13/24
Ordered By: Philly Benavides
Discharge Date and Time
Discharge Date/Time: 05/13/24 19:05
Print Language: MALAYSIAN
--- NOTE | 2024-05-13 15:34 | W.PN.NEPH.PH ---
Today's Communication / Plan
-
wean off IVF
Assessment/Plan
-
IMP:
Hypoantremia
Hyperkalemia
Non gap met acidosis
Anemia
ileostomy 12/26
Paroxysmal atrial fibrillation
Polymyalgia rheumatica by [id number]-[id number]-crnqvrida
Hypothyroidism
right CVA
CHELSEA with CKD3
Plan:
CHELSEA-cr is improving with IVF,
resolved hyponatremia from hypovolemia
U somo 437 and low U na
UA pyuria, follow bladder scan
right CVA planning AC with Sarah
Bp are too good, cardizem added today so keep same dose of midodrine
continue home prednisone
mild hyperkalemia resolved with LOkelma
encourage solute intake, likely wean off IVF later today
d/w pt and family at bedside
-
-
Date of Service: May 13, 2024
CC / HPI / ROS
-
Chief Complaint:
CHELSEA, hyperkalemia, met acidosis
History of Present Illness:
cr improving to 0.9,
BP stable on midodrine
k better at 4.1
met acidosis is better at 24
Review of Systems:
no cp or sob
still poor appetite
no n/v
Labs
-
Labs:
WBC 10.9 10^3/uL (4.8-10.8) H 05/13/24 10:42
RBC 3.95 10^6/uL (4.20-5.40) L 05/13/24 10:42
Hgb 12.0 g/dL (12.0-16.0) 05/13/24 10:42
Hct 35.2 % (37.0-47.0) L 05/13/24 10:42
Plt Count 287 10^3/uL (130-400) 05/13/24 10:42
Sodium 135 mmol/L (135-145) 05/13/24 12:11
Potassium 4.1 mmol/L (3.5-5.1) D 05/13/24 12:11
Chloride 108 mmol/L (98-107) H 05/13/24 12:11
Carbon Dioxide 24 mmol/L (22-30) 05/13/24 12:11
BUN 24 mg/dl (7-17) H 05/13/24 12:11
Creatinine 0.9 mg/dL (0.6-1.0) 05/13/24 12:11
eGFR > 60.00 05/13/24 12:11
Glucose 144 mg/dl (70-99) H 05/13/24 12:11
Calcium 9.5 mg/dl (8.4-10.2) 05/13/24 12:11
Phosphorus 2.9 mg/dl (2.5-4.5) 05/12/24 15:10
Albumin 3.4 g/dl (3.5-5.0) L 05/13/24 12:11
Physical Exam
-
Vital Signs:
Vital Signs
Temp Pulse Resp BP Pulse Ox
97.5 F 89 18 139/78 98
05/13/24 11:40 05/13/24 11:40 05/13/24 11:40 05/13/24 11:40 05/13/24 11:40
Cardiovascular:: Regular rate and rhythm
Respiratory:: Bilateral: CTA
Lung Excursion:: Normal
Abdomen:: Nontender and Soft
Extremity Edema:: None: Bilateral:
Keith Catheter: No
[2024-05-13 15:47] VITALS: BP 119/73
[2024-05-13] MEDS: BenGay-Like TOPICAL (16:28)
[2024-05-13 17:37] VITALS: BP 128/79
[2024-05-13] MEDS: D5/0.9% SODIUM CHLORIDE IV (17:39)
--- NOTE | 2024-05-14 09:40 | WOUNDNOTE ---
WO RN Note: t/c Spoke with [facility] nurse salon/spa manager Fadia who stated patient's pouch was leaking when [facility] received patient and she did not have ostomy supplies. Dropped of ostomy supplies to [facility] and gave to patient's nurse and reviewed products.
[place] texted [facility] nurse liaison re: Current appliance being used: Convatec soft convex 1 piece # [id number] with Mariella seal, Mariella paste to peristomal skin crease above stoma and Holden ostomy belt #[id number].
== END 2024-05-13 19:05 | DRG 64 ==
LOC: 4 WEST ACU 21:58
PROVIDERS: Emergency Medicine; Student in an Organized Health Care Education/Training Program; ADMITTING PHYSICIAN Hospitalist; ATTENDING PHYSICIAN Hospitalist; CONSULT PHYSICIAN Internal Medicine Cardiovascular Disease; CONSULT PHYSICIAN Internal Medicine Infectious Disease; CONSULT PHYSICIAN Psychiatry & Neurology Neurology; EMERGENCY PHYSICIAN Emergency Medicine; FAMILY PHYSICIAN Family Medicine; OTHER PHYSICIAN Specialist
DX: I63.9 Cerebral infarction, unspecified (principal); L89.153 Pressure ulcer of sacral region, stage 3; E87.1 Hypo-osmolality and hyponatremia; N17.9 Acute kidney failure, unspecified; L03.311 Cellulitis of abdominal wall; E87.20 Acidosis, unspecified; M46.28 Osteomyelitis of vertebra, sacral and sacrococcygeal region; Z87.891 Personal history of nicotine dependence; E87.5 Hyperkalemia; I48.0 Paroxysmal atrial fibrillation; I95.9 Hypotension, unspecified; E03.9 Hypothyroidism, unspecified; K57.30 Diverticulosis of large intestine without perforation or abscess without bleeding; Z79.01 Long term (current) use of anticoagulants; M35.3 Polymyalgia rheumatica; N18.30 Chronic kidney disease, stage 3 unspecified
CPT/HCPCS: 70450; 70551; 71046; 76700; 80048; 80053; 80061; 81003; 81015; 82248; 82533; 82570; 82962; 82977; 83690; 83735; 83935; 84100; 84132; 84300; 84439; 84443; 85025; 85027; 86140; 92610; 93005; 93880; 96361; 96374; 96375; 97116; 97163; 97167; 97530; 97535; 99291

== ENCOUNTER → 2024-05-19 10:41 | Outpatient (REF) | payer MEDICARE, BC, SELFPAY | LOC: WOUND 10:41 | PROVIDERS: ATTENDING PHYSICIAN Surgery; FAMILY PHYSICIAN Family Medicine | DX: L89.153 Pressure ulcer of sacral region, stage 3 (principal); R62.7 Adult failure to thrive; I48.91 Unspecified atrial fibrillation; I10 Essential (primary) hypertension; E78.2 Mixed hyperlipidemia; D68.59 Other primary thrombophilia | CPT/HCPCS: 11042 ==

== ENCOUNTER → 2024-05-29 10:24 | Outpatient (REF) | payer MEDICARE, BC, SELFPAY | LOC: WOUND 10:24 | PROVIDERS: ATTENDING PHYSICIAN Surgery; FAMILY PHYSICIAN Family Medicine | DX: L89.153 Pressure ulcer of sacral region, stage 3 (principal); R62.7 Adult failure to thrive; I48.91 Unspecified atrial fibrillation; I10 Essential (primary) hypertension; E78.2 Mixed hyperlipidemia; D68.59 Other primary thrombophilia | CPT/HCPCS: 99212 ==

== ENCOUNTER → 2024-06-04 08:35 | Outpatient (REF) | payer MEDICARE, BC, SELFPAY ==
[2024-06-04 11:03] LABS: Osmolality Urine 577 mOsm/kg (300-900)
[2024-06-04 11:19] LABS: Urine Sodium 9 mmol/L (30-90)
[2024-06-04 12:54] LABS: Blood Urea Nitrogen 41 mg/dl (7-17); Calcium 10.5 mg/dl (8.4-10.2); Carbon Dioxide 21 mmol/L (22-30); Chloride 101 mmol/L (98-107); Glucose 135 mg/dl (70-99); Magnesium 1.9 mg/dl (1.6-2.3); Phosphorus 4.1 mg/dl (2.5-4.5); Potassium 5.3 mmol/L (3.5-5.1); Sodium 138 mmol/L (135-145)
== END ==
LOC: REG 08:35
PROVIDERS: ATTENDING PHYSICIAN Physical Medicine & Rehabilitation
DX: R53.1 Weakness (principal)
CPT/HCPCS: 36415; 80048; 82570; 83735; 83935; 84100; 84300

== ENCOUNTER → 2024-06-10 09:24 | Outpatient (REF) | payer MEDICARE, BC, SELFPAY | LOC: RAD 09:24 | PROVIDERS: ATTENDING PHYSICIAN Family Medicine | DX: E03.9 Hypothyroidism, unspecified (principal); E78.2 Mixed hyperlipidemia; I10 Essential (primary) hypertension; M54.31 Sciatica, right side; I48.91 Unspecified atrial fibrillation; K94.00 Colostomy complication, unspecified | CPT/HCPCS: 72110 ==

== ENCOUNTER 2024-06-11 11:27 | Inpatient (IN) | payer MEDICARE, BC, SELFPAY ==
[2024-06-11] VITALS (10 sets, daily range): BP systolic 105–153; BP diastolic 61–77; BMI 20.1
--- NOTE | 2024-06-11 08:59 | ED.GENMED ---
History of Present Illness
General
Chief Complaint: Fall
Source: patient and ambulance crew
Exam Limitations: none
Time Seen by Provider: 06/11/24 08:47
Nursing documentation reviewed up to this point in time: agreed with
History of Present Illness
History of Present Illness:
Patient presents to ED secondary to left hip injury, when she tripped and fell going up the steps at home this morning. Patient states that she tripped over the last step and fell forward, landing on her left hip. Denies any other injuries from
the fall. However, secondary to pain, patient was unable to stand up. Patient was given 75 mcg of fentanyl en route to the hospital by paramedics, with improvement in symptoms. Denies loss of sensation or weakness. Denies headache. Denies neck
pain. Patient does take Eliquis chronically, including this morning. Of note, patient was discharged from rehab facility 1 week ago after receiving treatment and therapy for an acute CVA.
Past History
Past History
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
DJD, sacral wound, diverticulitis) and Other (Toxic metabolic encephalopathy December 2023)
ED Past Surgical History: Appendectomy, Bowel resection, Cardiac (Ablation) and Orthopedic (Right SIMONE)
Social History
Tobacco: Former smoker
Alcohol: Occasional
Drug: None
Personal:
Living: with family
Employment: Retired
Family History
Family History: Other (Reviewed and noncontributory)
Review of Systems
Review of Systems
Allergies reviewed?: Yes
All Other Systems: ROS reviewed and negative except as documented in HPI and ROS
Constitutional: Reports no symptoms
Cardiac: Reports no symptoms; Denies chest pain or palpitations
ABD/GI: Reports no symptoms; Denies abdominal pain
Musculoskeletal: Reports other (hip pain); Denies neck pain or back pain
Skin: Reports no symptoms
Neurological: Reports no symptoms; Denies dizzy, headache or weakness
Phy Exam
Physical Exam
Physical Exam:
Physical Exam
General: mild painful distress, not acutely ill. afebrile
Head: nc/at. eomi
Neck: supple. normal range of motion.
Heart: s1/s2 regular rate and rhythm, no murmur. equal radial pulses.
Lungs: no acute respiratory distress. clear bilaterally. chest wall nontender to palpation.
Abdomen: normal bowel sounds. not tender. colostomy bag noted over mid-abdomen
Neuro: alert and oriented. no focal neurological deficits
Skin: no rash. diffuse ecchymosis noted over b/l UE, without tenderness/swelling/erythema, appears chronic
Psychiatric: well kept. interactive and cooperative
Extremities: no edema. no calf tenderness.
Course
Orders/Labs/Results
Orders:
Orders
06/11/24 08:57
Acetaminophen [Tylenol] 1,000 mg PO NOW STA
CR Hip - LT w/wo Pel 2-3 Vw* Urgent
Comment:
Reason For Exam: trauma
Include a pelvis x-ray?: Yes
06/11/24 09:06
Complete Blood Count/No Diff Urgent
Comprehensive Metabolic Panel Urgent
Magnesium Urgent
06/11/24 10:04
HYDROmorphone [Dilaudid] 0.5 mg IV NOW STA
Ondansetron Injectable [Zofran] 4 mg IV NOW STA
06/11/24 10:57
Admit/Transfer Patient As Directed
Co-Sign Provider:
Level of Care: Inpatient admission
Assign to:: Medical/Surgical
Physician / Group: satinder marmolejo
Diagnosis: mehcanical fall. acute subcapital fracture of the left femur
Reason for Hospitalization: cute subcapital fracture of the left femur
Expected length of stay greater than two midnights?: Yes
ELOS- Estimated Length of Stay in days: 3
I certify the patient meets the requirements for IP care: Yes
PRN Pain Medication Management As Directed
May give lesser potent ordered pain med per pt: Yes
preference::
Protocol:: Medication orders for pain may be administered in a
manner that supports deferring to patient preference
when the pt is:
-Requesting an ordered lesser potent pain medication.
Least to most potent pain medications are defined as:
acetaminophen < NSAID < tramadol < opioids (morphine,
oxycodone, hydromorphone).
- Requesting a lesser dose of the same medication IF
ORDERED.
- Requesting a less intrusive route of administration
if both routes are prescribed by the provider (PO <
IV).
06/11/24 12:49
Tramadol HCl [Ultram] 50 mg PO Q6HPRN PRN
06/11/24 14:25
Acetaminophen [Tylenol] 650 mg PO Q6HPRN PRN
Diclofenac 1% Topical Gel 2 gram TOPICAL QIDPRN PRN
Apply 2 or 4 grams as per protocol to the following joints:: Other joint(s)
Other joint/location to apply to:: right shoulder
Grams to be applied to other indicated joint/location:: 2g
Diltiazem [Cardizem] 30 mg PO TID@0800,1400,2000
Gabapentin [Neurontin] 200 mg PO BID
Levothyroxine [Synthroid] 75 mcg PO DAILY
Midodrine [ProAmatine] 10 mg PO TID@0700,1300,1800
Ondansetron HCl [Zofran] 4 mg PO Q8HPRN PRN
Prednisone [Deltasone] 5 mg PO DAILYPRN PRN
Sodium Zirconium Cyclosilicate [Lokelma] 5 gram PO MOWEFR
06/11/24 20:00
Apixaban [Eliquis] 2.5 mg PO BID
06/12/24 08:00
Multivitamin [Theragran] 1 tablet PO DAILY
Pantoprazole [Protonix] 40 mg PO DAILY
Sodium Bicarbonate 1,300 mg PO DAILY
Abnormal Lab Results
06/11/24
09:06
RBC 3.36 L 10^6/uL
(4.20-5.40)
Hgb 10.0 L g/dL
(12.0-16.0)
Hct 30.9 L %
(37.0-47.0)
MCHC 32.4 L g/dL
(33.0-37.0)
RDW 16.0 H %
(11.5-14.5)
Sodium 132 L mmol/L
(135-145)
Carbon Dioxide 18 L mmol/L
(22-30)
BUN 41 H mg/dl
(7-17)
Creatinine 1.6 H mg/dL
(0.6-1.0)
Glucose 124 H mg/dl
(70-99)
AST 53 H U/L
(14-36)
ALT 60 H U/L
(0-35)
Alkaline Phosphatase 454 H U/L
(38-126)
06/11/24 09:06
06/11/24 09:06
Vital Signs
Initial and Last Documented VS:
Initial Vital Signs
Temp Pulse Resp BP Pulse Ox
98.0 F 90 15 153/73 99
06/11/24 08:46 06/11/24 08:46 06/11/24 08:46 06/11/24 08:46 06/11/24 08:46
Last Documented Vital Signs
Temp Pulse Resp BP Pulse Ox
97.9 F 80 18 125/77 99
06/11/24 14:36 06/11/24 14:36 06/11/24 14:36 06/11/24 14:36 06/11/24 14:36
MDM/Problems Addressed
MDM/Problems Addressed:
History, exam, and x-ray consistent with left hip fracture. Dr. Delaney, orthopedic surgery, notified via [facility] text. Patient will be admitted for further evaluation and treatment.
*Critical Care Note
Total Time (30-74mins, 75-104mins- exclusive of procedures): Not Applicable
ED Attending Note
-
Portions of this chart may have been created with voice recognition software.� Occasional wrong word or��sound alike� substitutions may have occurred due to the inherent limitations of voice recognition software.
Discharge Plan
Departure
Patient Disposition: Admit
Date of Disposition: 06/11/24
Time of Disposition: 10:07
Presentation/result/management discussed w/ accepting MD/DO: Hospitalist
Discharge Problem:
Closed hip fracture
Interventions
Interventions:
*Risk Screen - Suicide Last Done: 06/11/24 08:46
*General Assessment Last Done: 06/11/24 08:46
*Neglect/Abuse Screening Last Done: 06/11/24 08:46
ED- Fall Risk Assessment Last Done: 06/11/24 08:46
*ED COVID-19 Vaccine History Last Done: 06/11/24 08:46
*Nursing Disposition Last Done: 06/11/24 14:10
ED-Musculoskeletal Assessment Last Done: 06/11/24 08:56
ED- Neurological Assessment Last Done: 06/11/24 08:56
ED-Skin Assessment Last Done: 06/11/24 08:56
Discharge Date and Time
Discharge Date/Time: 06/11/24 14:10
[2024-06-11] MEDS: TYLENOL 1000 MG PO (09:00)
[2024-06-11 09:16] LABS: Hematocrit 30.9 % (37.0-47.0); Mean Corp Hgb Conc. 32.4 g/dL (33.0-37.0); Mean Corpuscular Hgb 29.8 pg (27.0-31.0); Mean Platelet Volume 10.3 fL (7.4-10.4); Platelet Count 288 10^3/uL (130-400); Red Blood Cell Count 3.36 10^6/uL (4.20-5.40); White Blood Cell Count 8.4 10^3/uL (4.8-10.8)
[2024-06-11 09:32] LABS: ALT (SGPT) 60 U/L (0-35); AST (SGOT) 53 U/L (14-36); Albumin 4.1 g/dl (3.5-5.0); Alkaline Phosphatase 454 U/L (38-126); Blood Urea Nitrogen 41 mg/dl (7-17); Calcium 10.2 mg/dl (8.4-10.2); Carbon Dioxide 18 mmol/L (22-30); Chloride 98 mmol/L (98-107); Estimated Creatinine Clearance 21 ml/min; Glucose 124 mg/dl (70-99); Magnesium 1.8 mg/dl (1.6-2.3); Potassium 4.6 mmol/L (3.5-5.1); Sodium 132 mmol/L (135-145); Total Bilirubin 0.8 mg/dl (0.2-1.3); Total Protein 6.6 g/dl (6.3-8.2); eGFR 31.61
[2024-06-11] MEDS: ZOFRAN 4 MG IV (10:08)
[2024-06-11] MEDS: DILAUDID 0.5 MG IV (10:10)
--- NOTE | 2024-06-11 12:23 | CON.ORTHO ---
Consultation
-
Date/Time Consultation Requested: 06/11/24
Date/Time Consultation Performed: 06/11/24 @12pm
Requesting Provider: ER Physician
Performing Provider: Jessica Rosenberg PA-C & Danny Delaney MD
Reason for Consultation: left hip fracture
Consultation - Orthopedics
History
Patient seen in tandem with Dr. Delaney
HPI: 83yo female presents to [facility] for left hip pain following a fall. She tripped on her last step at home and fell, landing on the left hip. She was unable to get up on her own. She arrived to the ER via EMS. She reports pain in the left
hip with any movement. Xrays obtained in the ER reveal a left hip fracture. She does take Eliquis with her last dose this morning. Orthopedics has been consulted for further management
PAST MEDICAL HISTORY: Afib, CVA, HTN, hypothyroid, mesenteric ischemia, diverticulitis, hyponatremia, trigeminal neuralgia on the right, lumbar DJD
PAST SURGICAL HISTORY: Appendectomy, bowel resection, cardiac ablation, right hip hemiarthroplasty with Dr. Nunse
SOCIAL HISTORY: former smoker, denies alcohol, lives at home, ambulates with cane/walker at baseline
FAMILY HISTORY: Noncontributory
REVIEW OF SYSTEMS: 12 point review of systems obtained and negative except those mentioned in the HPI
Allergies / Home Medications
Allergy/AdvReac Type Severity Reaction Status Date / Time
amlodipine Allergy Nausea Verified 06/11/24 08:58
codeine Allergy Nausea / Verified 06/11/24 08:58
Vomiting
doxycycline Allergy Hives Verified 06/11/24 08:58
hydrocodone [From Vicodin] Allergy Vomiting Verified 06/11/24 08:58
metoprolol [From Lopressor] Allergy Dizzy Verified 06/11/24 08:58
sulfamethoxazole Allergy Rash Verified 06/11/24 08:58
[From Bactrim]
trimethoprim [From Bactrim] Allergy Rash Verified 06/11/24 08:58
�Medication �Instructions �Recorded
ondansetron HCl 4 mg tablet 4 mg PO Q8HPRN PRN NAUSEA/VOMITING 01/04/24
acetaminophen 325 mg tablet 650 mg (2 x 325 mg) PO Q6HPRN PRN 05/13/24
mild pain #0 tabs
apixaban 2.5 mg tablet (Eliquis) 2.5 mg PO BID Blood clot 05/13/24
prevention/tx #0 tabs
diclofenac sodium 1 % topical gel 2 g topical QIDPRN PRN right 05/27/24
shoulder pain 30 days #150 grams
diltiazem HCl 30 mg tablet 30 mg PO TID@0800,1400,2000 30 05/27/24
days #90 tabs
midodrine 5 mg tablet 10 mg (2 x 5 mg) PO 05/27/24
TID@0700,1300,1800 orthostasis-
low blood pressure 30 days #180
tabs
multivitamin with folic acid 400 1 tab PO DAILY supplement 30 days 05/27/24
mcg tablet (Tab-A-Taz) #30 tabs
pantoprazole 40 mg tablet,delayed 40 mg PO DAILY GERD 30 days #30 05/27/24
release tabs
gabapentin 100 mg capsule 200 mg PO BID Neurological 06/11/24
Condition
levothyroxine 75 mcg tablet 75 mcg PO DAILY 06/11/24
(Synthroid)
prednisone 5 mg tablet 5 mg PO DAILYPRN PRN polymyalgia 06/11/24
sodium bicarbonate 650 mg tablet 1,300 mg PO DAILY 06/11/24
sodium zirconium cyclosilicate 5 5 g PO MOWEFR hyperkalemia 06/11/24
gram oral powder packet (Lokelma)
tramadol 50 mg tablet 50 mg PO Q6HPRN PRN moderate pains 06/11/24
Vital Signs / Lab Results
Temp Pulse Resp BP Pulse Ox
98.0 F 77 15 125/66 98
06/11/24 08:46 06/11/24 11:30 06/11/24 11:30 06/11/24 11:00 06/11/24 11:30
06/11/24 09:06
06/11/24 09:06
RADIOGRAPHIC FINDINGS:
Xrays left hip show there is osteopenia with acute subcapital fracture of the left femur with 1.5 cm superior riding/impaction of the distal fracture fragment.
PHYSICAL EXAM:
General: no acute distress
HEENT: NCAT, sclera anicteric, normal hearing
Heart: No JVD
Lungs: Normal work of breathing on room air
MSK: Directed exam of left lower extremity reveals skin intact. leg is shortened and externally rotated. +Log roll. Able to plantarflex/dorsiflex the ankle. calf soft and nontender. NVI distally
Assessment / Plan
ASSESSMENT: Left femoral neck fracture
PLAN: Unfortunately, Mrs. Kohli has sustained a left hip fracture. Recommend surgical fixation. The risks, benefits, and potential complications were discussed with the patient and family at bedside. She agrees to proceed with left hip
hemiarthroplasty under the direction of Dr. Delaney tomorrow pending medical clearance. Surgical and blood consents were obtained and scanned in to the chart. A copy of the consent was left at the OR front maker. Please continue to hold Eliquis. She
will need to be NPO after midnight. Ancef manager application development to OR. Povidone and TXA irrigation ordered for the OR. Will obtain updated type and screen. Remain on bedrest for now. Continue with pain management as needed. All of the patient's and family's
questions were answered. Will continue to follow along.
--- NOTE | 2024-06-11 14:34 | HPS.HSE ---
Family Physician
-
Family Physician: David Valdez
Chief Complaint
-
Fall sustaining Left hip fracture
History of Present Illness
83 female history of mesenteric ischemia s/p ostomy, P A-fib, CVA, hyperlipidemia, hypothyroidism, polymyalgia spine stenosis with sciatica and trigeminal neuralgia along with anxiety presenting s/p mechanical fall while walking up the stairs lost
balance as she states the last step was higher than the previous step. She fell forward hitting her left hip against the ground. She was unable she was unable to stand or bear weight on the left lower extremity. There was no head strike or loss
of consciousness nor shortness of breath chest pain palpitations diaphoresis. Family at bedside corroborated the story as was walking behind her.
In the ED, hemoglobin stable at 10, no white count, hyponatremic 132, alk phos 454, ALT AST are both up in a woman to 1 to 1 ratio. Hemodynamically stable. Orthopedics consulted.
Per family at bedside Dilaudid tramadol makes her loopy
10 point ROS as above
NAD, resting comfortably in bed
Scleral anicteric, senile arcus
Moist mucous membranes
No JVD
CTA bilateral
Normal S1-S2 no murmurs
Soft nontender nondistended bowel sounds active
No peripheral pitting edema
Moves extremities spontaneously, left leg shorter and externally rotated
AAOx3
Mechanical fall
-Nonweightbearing as tolerated
-PT OT consulted
-Check orthostatics
Left femoral neck fracture
-Orthopedics consulted. Likely plan for OR in the next 24 hours.
-Hold Eliquis
-Can likely resume age and weight adjusted Eliquis post operatively
-Postop PT OT
-Will be comanaged with orthopedics
-Postop incentive spirometer should be provided
-Nonweightbearing as tolerated
-Cardiology consulted for clearance
-Will plan to medically optimize
-N.p.o. after midnight
P A-fib
Continue diltiazem and hold apixaban
Hyponatremia
Continue to encourage p.o. intake
Hypothyroid continue Synthroid
GERD continue PPI
Polymyalgia rheumatica
Continue as needed prednisone
Medical History
Past Medical History
Past Medical History: Reports CVA
Past Surgical History: Reports Bowel Resection
Social History
Tobacco: Non-smoker
Family History
Family History: Not pertinent
Allergies / Home Medications
Allergies reflects when Allergies were last updated in [facility].
Home Medications with original date entered in [facility]
Allergy/Medication List:
Allergies
Allergy/AdvReac Type Severity Reaction Status Date / Time
amlodipine Allergy Nausea Verified 06/11/24 08:58
codeine Allergy Nausea / Verified 06/11/24 08:58
Vomiting
doxycycline Allergy Hives Verified 06/11/24 08:58
hydrocodone [From Vicodin] Allergy Vomiting Verified 06/11/24 08:58
metoprolol [From Lopressor] Allergy Dizzy Verified 06/11/24 08:58
sulfamethoxazole Allergy Rash Verified 06/11/24 08:58
[From Bactrim]
trimethoprim [From Bactrim] Allergy Rash Verified 06/11/24 08:58
Home Medications
ondansetron HCl 4 mg tablet 4 mg PO Q8HPRN PRN NAUSEA/VOMITING 01/04/24
acetaminophen 325 mg tablet 650 mg (2 x 325 mg) PO Q6HPRN PRN mild pain #0 tabs 05/13/24
apixaban 2.5 mg tablet (Eliquis) 2.5 mg PO BID Blood clot prevention/tx #0 tabs 05/13/24
diclofenac sodium 1 % topical gel 2 g topical QIDPRN PRN right shoulder pain 30 days #150 grams 05/27/24
diltiazem HCl 30 mg tablet 30 mg PO TID@0800,1400,2000 30 days #90 tabs 05/27/24
midodrine 5 mg tablet 10 mg (2 x 5 mg) PO TID@0700,1300,1800 orthostasis- low blood pressure 30 days #180 tabs 05/27/24
multivitamin with folic acid 400 mcg tablet (Tab-A-Taz) 1 tab PO DAILY supplement 30 days #30 tabs 05/27/24
pantoprazole 40 mg tablet,delayed release 40 mg PO DAILY GERD 30 days #30 tabs 05/27/24
gabapentin 100 mg capsule 200 mg PO BID Neurological Condition 06/11/24
levothyroxine 75 mcg tablet (Synthroid) 75 mcg PO DAILY Thyroid 06/11/24
prednisone 5 mg tablet 5 mg PO DAILYPRN PRN polymyalgia 06/11/24
sodium bicarbonate 650 mg tablet 1,300 mg PO DAILY Electrolyte Repletion 06/11/24
sodium zirconium cyclosilicate 5 gram oral powder packet (Lokelma) 5 g PO MOWEFR hyperkalemia 06/11/24
tramadol 50 mg tablet 50 mg PO Q6HPRN PRN moderate pains 06/11/24
Review of Systems
-
A 12 point ROS was completed and negative except as noted: Yes
Physical Exam
Vital Signs
Vital Signs
Temp Pulse Resp BP Pulse Ox
98.0 F 75 12 128/67 99
06/11/24 08:46 06/11/24 14:00 06/11/24 14:00 06/11/24 14:00 06/11/24 13:45
Physical Exam
General: Cachectic
Laboratory Results
-
06/11/24 09:06
06/11/24 09:06
Laboratory Results
Total Bilirubin 0.8 mg/dl (0.2-1.3) 06/11/24 09:06
AST 53 U/L (14-36) H 06/11/24 09:06
ALT 60 U/L (0-35) H 06/11/24 09:06
Alkaline Phosphatase 454 U/L (38-126) H 06/11/24 09:06
Impression/Plan
-
IMPRESSION:
PLAN:
--- NOTE | 2024-06-11 15:16 | CON.CAR ---
Addendum entered and electronically signed by Ricardo Perez MD 06/11/24 16:10:
I saw and examined the patient.
The Core Filer's note was reviewed and I agree with the note.
Comment:
GEN: No distress, awake, Ox3
HEENT: supple, anicteric, mmm
LUNGS: CTA, no wheezes/rales
CV: Reg, S1/S2, 1/6 syst LSB, no gallop
ABD: soft, BS+, NT/ND
EXT: No edema
NEURO: Gross non-focal
SKIN: No rash
Plan:
She has a past medical history of paroxysmal atrial fibrillation status post PVI, sick sinus syndrome, hypertension hyperlipidemia and CVA. In May of 2024, she was off her Eliquis and had an acute/subacute stroke. She was placed back on Eliquis
2.5 mg p.o. twice daily and discharge. Today she was walking and tripped fell on her left hip and has a left hip fracture. We are asked to evaluate her prior to her operating room.
EKG is overall stable. Normal sinus rhythm.
Echo from December 2023 has a preserved ejection fraction with no significant valve disease.
She took her Eliquis this morning. At this point with plans for the operating room tomorrow I would not bridge her unless her surgery was going to be delayed until June 13. With her renal insufficiency her Eliquis will still be in her system
for today.
She is stable to proceed to the operating room. She should be placed on telemetry post procedure. She will be moderate risk. We should resume her Eliquis as soon as possible post hip fracture. Hopefully in the first 24 hours.
Original Note:
Consultation
Consultation Request
Date/Time Consultation Performed: 06/11/24
Requesting Provider: Dr. Nohemi Bagley
Performing Provider: Leelee Jarquin PA-C for Dr. Perez
Reason for Consultation: preop clearance, L hip fracture
Medical History
-
Chief Complaint: L hip pain
History of Present Illness:
Diya is an 83-year-old female with past medical history of paroxysmal atrial fibrillation and flutter status post PVI and CTI flutter ablation, sick sinus syndrome, hypertension, hyperlipidemia, GERD, hypothyroidism, and arthritis. She presented
to ER for evaluation on 05/10/2024 due to generalized weakness. She was found to have acute to subacute CVA on CT of head 05/11/2024. She reportedly had been off of Eliquis after starting Diflucan as outpatient 04/27/2024. She was restarted on
eliquis 2.5mg BID and discharged to SNF at [facility]. She has been home for ~1 week. This morning she tripped and fell up her stairs landing on her L hip. She denies preceding dizziness/lightheadedness/palpitations. On arrival to ER noted to have L hip
fracture. Plan per ortho for OR tomorrow. Cardiology consulted for preop clearance.
PMH:
Admission for CVA while off OAC 05/2024
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
Paroxysmal atrial fibrillation and typical atrial flutter
s/p PVI, CTI flutter ablation, 08/25/19
occurrence with RVR 12/26/23 then spontaneously converted to SR 12/29/23, recurred with Afib 12/31/23 and then spontaneously converted to SR again 01/01/24
Chronic Eliquis anticoagulation
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
HTN
HLD
GERD
Hypothyroidism
Arthritis
Past Medical History
Past Medical History: Other (in HPI)
Past Surgical History: Appendectomy, Bowel Resection (Total colectomy and end ileostomy 12/27/2023), Cardiac (PVI, CTI ablation 08/25/2019) and Orthopedic (right hip hemiarthroplasty 03/15/2021)
Social History
Tobacco: Former Smoker
Alcohol: None
Drug: None
Personal:
Living: Other (had been at [facility] after 05/2024 admission for CVA until ~1 week ago)
Family History
Family History: Cancer and Diabetes
Allergies / Home Medications
Allergy/AdvReac Type Severity Reaction Status Date / Time
amlodipine Allergy Nausea Verified 06/11/24 08:58
codeine Allergy Nausea / Verified 06/11/24 08:58
Vomiting
doxycycline Allergy Hives Verified 06/11/24 08:58
hydrocodone [From Vicodin] Allergy Vomiting Verified 06/11/24 08:58
metoprolol [From Lopressor] Allergy Dizzy Verified 06/11/24 08:58
sulfamethoxazole Allergy Rash Verified 06/11/24 08:58
[From Bactrim]
trimethoprim [From Bactrim] Allergy Rash Verified 06/11/24 08:58
�Medication �Instructions �Recorded �Confirmed �Type
ondansetron HCl 4 mg tablet 4 mg PO Q8HPRN PRN NAUSEA/VOMITING 01/04/24 06/11/24 History
acetaminophen 325 mg tablet 650 mg (2 x 325 mg) PO Q6HPRN PRN 05/13/24 06/11/24 Rx
mild pain #0 tabs
apixaban 2.5 mg tablet (Eliquis) 2.5 mg PO BID Blood clot 05/13/24 06/11/24 Rx
prevention/tx #0 tabs
diclofenac sodium 1 % topical gel 2 g topical QIDPRN PRN right 05/27/24 06/11/24 Rx
shoulder pain 30 days #150 grams
diltiazem HCl 30 mg tablet 30 mg PO TID@0800,1400,2000 30 05/27/24 06/11/24 Rx
days #90 tabs
midodrine 5 mg tablet 10 mg (2 x 5 mg) PO 05/27/24 06/11/24 Rx
TID@0700,1300,1800 orthostasis-
low blood pressure 30 days #180
tabs
multivitamin with folic acid 400 1 tab PO DAILY supplement 30 days 05/27/24 06/11/24 Rx
mcg tablet (Tab-A-Taz) #30 tabs
pantoprazole 40 mg tablet,delayed 40 mg PO DAILY GERD 30 days #30 05/27/24 06/11/24 Rx
release tabs
gabapentin 100 mg capsule 200 mg PO BID Neurological 06/11/24 06/11/24 History
Condition
levothyroxine 75 mcg tablet 75 mcg PO DAILY Thyroid 06/11/24 06/11/24 History
(Synthroid)
prednisone 5 mg tablet 5 mg PO DAILYPRN PRN polymyalgia 06/11/24 06/11/24 History
sodium bicarbonate 650 mg tablet 1,300 mg PO DAILY Electrolyte 06/11/24 06/11/24 History
Repletion
sodium zirconium cyclosilicate 5 5 g PO MOWEFR hyperkalemia 06/11/24 06/11/24 History
gram oral powder packet (Lokelma)
tramadol 50 mg tablet 50 mg PO Q6HPRN PRN moderate pains 06/11/24 06/11/24 History
Review of Systems
-
History Source: Patient
All other systems: Negative unless noted
Physical Exam
Vital Signs
Temp Pulse Resp BP Pulse Ox
97.9 F 80 18 125/77 99
06/11/24 14:36 06/11/24 14:36 06/11/24 14:36 06/11/24 14:36 06/11/24 14:36
Lab Results
06/11/24 09:06
06/11/24 09:06
Physical Exam
General: No Apparent Distress, Comfortable and Other (on supp O2)
HEENT: Normocephalic, Anicteric and Moist Mucous Membranes
Respiratory: Clear and Non Labored Respirations
Cardiac: S1/S2 and Regular Rhythm
GI: Soft, Non Tender, Non Distended and Normal Bowel Sounds
Musculoskeletal: No Clubbing, No Cyanosis and No Edema
Skin: Warm and Dry
Neuro: AO x 3
Impression / Plan
-
PCP: Dr. David Valdez
Cardiology: Dr. Ku
Impression:
Presentation with fall, L hip pain
L femur fracture
CHELSEA on CKD
Hyponatremia
Chronic anemia
Admission for CVA while off OAC 05/2024
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
Paroxysmal atrial fibrillation and typical atrial flutter
s/p PVI, CTI flutter ablation, 08/25/19
occurrence with RVR 12/26/23 then spontaneously converted to SR 12/29/23, recurred with Afib 12/31/23 and then spontaneously converted to SR again 01/01/24
Chronic Eliquis anticoagulation
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
HTN
HLD
GERD
Hypothyroidism
Arthritis
FARIDA 08/19/2019: EF 60 to 65%, mild MR
Echo 12/31/23: EF 65-70%, mild conc LVH, no , mild TR with PAP 30-35 mmHg
Echo 01/09/2024: EF 65 to 70%, mild concentric LVH, trace MR, trace AI
Plan:
-Patient presents with a fall, and subsequent left hip pain. Imaging with acute subcapital fracture of left femur.
-Per Ortho, plan for OR in a.m.
-Cardiology consulted for preop evaluation and clearance
-Complex situation, as patient with recent admission for CVA while off anticoagulation. Took dose of Eliquis 2.5 mg this morning, 06/11. Creatinine of 1.6 this morning, creatinine clearance in 20s. Hold Eliquis for now in prep for OR. Will need
to resume anticoagulation as soon as possible postoperatively when felt to be safe per orthopedics
-hgb stable at 10
-check EKG. last from 05/20 was NSR. follow on tele
-follow Cr, does not appear to be on any nephrotoxic agents as OP.
-on chronic midodrine. BPs stable
-echo 12/2023 with results as above
-patient is at elevated cardiovascular risk for surgery given recent CVA off OAC, however this risk is not prohibitive given necessity of surgery.
-will follow post operatively
Data Reviewed
-
EKG: Tracing Personally Visualized and interpreted
Radiology: Report Reviewed by me
Medical Tests (Nuc Med, Echo etc): Report Reviewed by me
Labs: Labs Reviewed by me
Old Records: Reviewed
[2024-06-11] MEDS: TYLENOL 650 MG PO (15:44)
--- NOTE | 2024-06-11 16:10 | WOUNDNOTE ---
[facility] RN note: Patient admitted with L hip fracture. Patient lives with and is current with VN.
See H&P for complete history.
PMH: R hip ORIF, ileostomy, back pain, a fib, HTN, ex smoker, ambulation dysfunction, facial melanoma skin cancer lesion removal.
Wound Location and type/assessment: Patient admitted with: healing stage 3 sacral pressure injury. Ulcer small and pink with slow to ruben stage 1 pressure injury proximal to healing ulcer. Mild skin irritation around outer edge of ostomy
appliance adhesive.
Appetite: NPO for L hip surgery tomorrow.
Pressure redistribution devices in place: [employer] air bed. She cannot turn self in bed d/t L hip fracture.
Plan: Patient turned patient with help from RN Carla. Sacral dressing changed using a sacral shaped silicone border foam. Protective foam applied to heels. Air chair cushion given. Heels off bed with pillow. Ileostomy stoma 1 inch pink and budded.
Stool loose brown. Ostomy appliance changed using Holden wafer # [id number], Mariella seal and high output pouch #[id number] connected to [place] bedside drainage bag #[id number]. Ostomy supplies left in room.
Will confirm orders with hospitalist and update nurse.
Care plan to be updated and will follow as needed.
Note to case management of equipment requested for discharge: Air mattress.
--- NOTE | 2024-06-11 16:12 | WOUNDNOTE ---
[facility] RN note: Patient admitted with L hip fracture. Patient lives with and is current with VN.
See H&P for complete history.
PMH: R hip ORIF, ileostomy, back pain, a fib, HTN, ex smoker, ambulation dysfunction, facial melanoma skin cancer lesion removal.
Wound Location and type/assessment: Patient admitted with: healing stage 3 sacral pressure injury. Ulcer small and pink with slow to ruben stage 1 pressure injury proximal to healing ulcer. Mild skin irritation around outer edge of ostomy
appliance adhesive.
Appetite: NPO for L hip surgery tomorrow.
Pressure redistribution devices in place: [employer] air bed. She cannot turn self in bed d/t L hip fracture.
Plan: Patient turned patient with help from SENAIT Aguirre. Sacral dressing changed using a sacral shaped silicone border foam. Protective foam applied to heels. Air chair cushion given. Heels off bed with pillow. Ileostomy stoma 1 inch pink and budded.
Stool loose brown. Ostomy appliance changed using [employer] wafer # [id number], Mariella seal and high output pouch connected to bedside drainage bag.
Will confirm orders with hospitalist and update nurse.
Care plan to be updated and will follow as needed.
Note to case management of equipment requested for discharge: Air mattress.
[2024-06-11] MEDS: TORADOL 15 MG IV (16:35)
[2024-06-11] MEDS: SYNTHROID PO (16:39)
[2024-06-11] MEDS: CARDIZEM 30 MG PO ×2 (17:38→20:49)
[2024-06-11] MEDS: LOKELMA 5 GRAM PO (17:38)
[2024-06-11] MEDS: ProAmatine 10 MG PO (17:39)
[2024-06-11] MEDS: NEURONTIN 200 MG PO (20:49)
[2024-06-11] MEDS: PROTONIX 40 MG PO (20:49)
[2024-06-12] VITALS (15 sets, daily range): BP systolic 96–116; BP diastolic 42–77; PULSE 90; O2SAT 97; BMI 20.1
[2024-06-12] MEDS: SYNTHROID 75 MCG PO (05:28)
[2024-06-12] MEDS: TORADOL 15 MG IV (05:28)
[2024-06-12] MEDS: ProAmatine 10 MG PO ×3 (05:28→17:14)
[2024-06-12 05:48] LABS: Hematocrit 29.6 % (37.0-47.0); Hemoglobin 9.9 g/dL (12.0-16.0); Mean Corp Hgb Conc. 33.4 g/dL (33.0-37.0); Mean Corpuscular Hgb 29.9 pg (27.0-31.0); Mean Corpuscular Volume 89.4 fL (81.0-99.0); Mean Platelet Volume 10.9 fL (7.4-10.4); Platelet Count 302 10^3/uL (130-400); Red Blood Cell Count 3.31 10^6/uL (4.20-5.40); Red Cell Dist. Width 16.2 % (11.5-14.5); White Blood Cell Count 7.1 10^3/uL (4.8-10.8)
[2024-06-12 06:16] LABS: Blood Urea Nitrogen 36 mg/dl (7-17); Calcium 10.1 mg/dl (8.4-10.2); Carbon Dioxide 21 mmol/L (22-30); Chloride 102 mmol/L (98-107); Estimated Creatinine Clearance 24 ml/min; Glucose 84 mg/dl (70-99); Potassium 5.6 mmol/L (3.5-5.1); Sodium 132 mmol/L (135-145)
--- NOTE | 2024-06-12 07:14 | W.PN.UPDATE ---
Update Note
Progress Note Update
Patient has sustained displaced left femoral neck fracture and plan is for hemiarthroplasty later this morning with Dr. Delaney. She will remain n.p.o. and continue to hold Eliquis.
--- NOTE | 2024-06-12 07:54 | W.PN.UPDATE ---
Update Note
Progress Note Update
please have pt ready to transport to OR at 1115 am thank you.
--- NOTE | 2024-06-12 07:55 | VNURNOTE ---
Chart reviewed. [facility]. Will continue to follow hospital course and DC plans.
[2024-06-12] MEDS: CARDIZEM 30 MG PO ×3 (08:22→20:21)
[2024-06-12] MEDS: THERAGRAN 1 TABLET PO (08:22)
[2024-06-12] MEDS: NEURONTIN 200 MG PO ×2 (08:22→20:20)
[2024-06-12] MEDS: SODIUM BICARBONATE 1300 MG PO (08:22)
[2024-06-12] MEDS: PROTONIX 40 MG PO ×2 (08:22→20:21)
--- NOTE | 2024-06-12 15:00 | W.IMMPOSTOP ---
Surgical Immed Post Op Note
-
Primary Surgeon: Jasmeet Marmolejo MD
Assisting Surgeon: Danny Delanye MD
Pre-op Diagnosis: Left femoral neck fracture
Post-op Diagnosis: Left femoral neck fracture
Procedure Performed: Left hip hemiarthroplasty
Anesthesia Type: General
Specimen / Cultures: none
Estimated Blood Loss: 50mL
Complications: none apparent
Operative Findings: Left femoral neck fracture
Dictation # [id number]
--- NOTE | 2024-06-12 15:05 | W.PN.HOSP.TC ---
Today's Communication/Plan
-
For OR, keep NPO until then, then can resume diet post op
Then will need post op DVT ppx, likely able to resume PO eliquis if cleared by OR
NWBAT, post op will need PT?OT to eval if cleared by Ortho to start PT
Post op should use incentive jac and ankle pumps
Assessment / Plan
Assessment / Plan
NAD, resting comfortably in bed
Scleral anicteric, senile arcus
Moist mucous membranes
No JVD
CTA bilateral
Normal S1-S2 no murmurs
Soft nontender nondistended bowel sounds active
No peripheral pitting edema
Moves extremities spontaneously, left leg shorter and externally rotated
AAOx3
Mechanical fall
-Nonweightbearing as tolerated
-PT OT consulted
-Check orthostatics
Left femoral neck fracture
-Orthopedics following planning for OR at 11am
-Hold Eliquis, resume following day after OR
-Can likely resume age and weight adjusted Eliquis post operatively
-Postop PT OT
-Will be comanaged with orthopedics
-Postop incentive spirometer should be provided
-Nonweightbearing as tolerated
-Cardiology consulted for clearance
-Will plan to medically optimize
-N.p.o. until surgery, then can resume diet
Hyperkalemia
-Avoid K sparing agents
-Start Lokelma TID
-Low K diet
P A-fib
Continue diltiazem and hold apixaban
Hyponatremia
Continue to encourage p.o. intake
Hypothyroid continue Synthroid
GERD continue PPI
Polymyalgia rheumatica
Continue as needed prednisone
Anticipated Discharge: 24 - 48 hours
Subjective/Interval History
-
Date of Service: June 12, 2024
Seen and examined. No new complaints. No acute overnight events.
Left hip pain better with Toradol however worse when moves hip/leg
Objective Data
-
Labs:
Laboratory Results
06/12/24
05:14
WBC 7.1
Hgb 9.9 L
Hct 29.6 L
Plt Count 302
Sodium 132 L
Potassium 5.6 H
Chloride 102
Carbon Dioxide 21 L
BUN 36 H
Creatinine 1.4 H
Glucose 84
Calcium 10.1
Vital Signs:
Vital Signs
Temp Pulse Resp BP Pulse Ox
98.2 F 87 14 110/65 97
06/12/24 14:26 06/12/24 15:00 06/12/24 15:00 06/12/24 15:00 06/12/24 15:00
I&O
06/11/24 06/12/24 06/13/24
06:59 06:59 06:59
Intake Total 720 / 720 240 / 240
Output Total 330 / 330 1150 / 1150
Balance 390 / 390 -910 / -910
--- NOTE | 2024-06-12 15:07 | W.PN.CARDCBS ---
Addendum entered and electronically signed by Fidel Vizcaino DO 06/12/24 17:24:
I saw and examined the patient.
The Allied Health Professional's note was reviewed and I agree with the note.
Comment:
Plan:
Seen in PACU
Remains in sinus
Resume anticoagulation once ok with surgery
Cont post op care
Original Note:
Today's Communication / Plan
-
continue post op care
resume OAC as soon as possible given recent CVA off OAC
Impression / Plan
-
PCP: Dr. David Valdez
Cardiology: Dr. Ku
Impression:
Presentation with fall, L hip pain
L femur fracture
CHELSEA on CKD
Hyponatremia
Chronic anemia
Admission for CVA while off OAC 05/2024
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
Paroxysmal atrial fibrillation and typical atrial flutter
s/p PVI, CTI flutter ablation, 08/25/19
occurrence with RVR 12/26/23 then spontaneously converted to SR 12/29/23, recurred with Afib 12/31/23 and then spontaneously converted to SR again 01/01/24
Chronic Eliquis anticoagulation
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
HTN
HLD
GERD
Hypothyroidism
Arthritis
FARIDA 08/19/2019: EF 60 to 65%, mild MR
Echo 12/31/23: EF 65-70%, mild conc LVH, no , mild TR with PAP 30-35 mmHg
Echo 01/09/2024: EF 65 to 70%, mild concentric LVH, trace MR, trace AI
Plan:
-Patient presents with a fall, and subsequent left hip pain. Imaging with acute subcapital fracture of left femur.
-seen in PACU post L hemiarthroplasty 06/12
-denies CP, SOB
-in SR on review of PACU tele
-resume OAC as soon as deemed safe from surgical standpoint given recent CVA off OAC
-hgb 9.9, follow
-d/w nursing
Progress Note - Elevator Examiner
Subjective
Date of Service: June 12, 2024
denies CP, SOB
Objective
Labs:
06/12/24 05:14
06/12/24 05:14
Labs
Hgb 9.9 g/dL (12.0-16.0) L 06/12/24 05:14
Hct 29.6 % (37.0-47.0) L 06/12/24 05:14
Plt Count 302 10^3/uL (130-400) 06/12/24 05:14
Sodium 132 mmol/L (135-145) L 06/12/24 05:14
Potassium 5.6 mmol/L (3.5-5.1) H 06/12/24 05:14
BUN 36 mg/dl (7-17) H 06/12/24 05:14
Creatinine 1.4 mg/dL (0.6-1.0) H 06/12/24 05:14
Glucose 84 mg/dl (70-99) 06/12/24 05:14
Vital Signs and I&O:
Vital Signs
Temp Pulse Resp BP Pulse Ox
98.2 F 87 14 110/65 97
06/12/24 14:26 06/12/24 15:00 06/12/24 15:00 06/12/24 15:00 06/12/24 15:00
Vital Signs
Temp Pulse Resp BP Pulse Ox
98.2 F 87 14 110/65 97
06/12/24 14:26 06/12/24 15:00 06/12/24 15:00 06/12/24 15:00 06/12/24 15:00
Intake & Output
06/10/24 06/11/24 06/12/24 09/13/24
07:59 07:59 07:59 07:59
Intake Total 960 / 960
Output Total 580 / 580 900 / 900
Balance 380 / 380 -900 / -900
Physical Exam
Physical Exam
GEN: No distress, awake, alert, oriented x3. on supp O2.
HEENT: supple, anicteric, mmm, eomi
LUNGS: CTA B/L, no wheezes/rales
CV: Reg, S1/S2, no murmur
ABD: soft, BS+, NT/ND
EXT: No cyanosis, clubbing, edema. leg immobilizer in place
NEURO: Gross non-focal
SKIN: Warm, pink, dry. No rash
[2024-06-12] MEDS: DILAUDID 0.25 MG IV (15:21)
[2024-06-12] MEDS: ROXICODONE 5 MG PO (15:35)
--- NOTE | 2024-06-12 16:11 | PTCARENOTE ---
Patient transferred to [address] [place] [address] from Pacu post left hemiarthroplasty to repair her fractured hip.The patient is alert and reports her pain at a 4-5 out of 10.Neurovascular assessment is within normal limits.Vital signs are stable.The Primaseal
dressing is intact without drainage.The patient is in her bed with the call shah in reach.
[2024-06-12] MEDS: LOKELMA PO ×2 (17:07)
[2024-06-12] MEDS: LOKELMA 10 GRAM PO (17:07)
--- NOTE | 2024-06-12 17:07 | CM ---
Post op patient . Spoke with and daughter.They live in a 1 story home with 2 steps to enter. She is independent in activates of daily living.She drives .She used a cane and walker..
Has [facility] currently . Harsha heard
[facility]acy [facility]
PCP Dr David Valdez
PLAN Home with [facility] S ue S Liaison [facility] aware
[2024-06-12] MEDS: ANCEF 5 IV (20:20)
[2024-06-12] MEDS: COLACE 100 MG PO (20:20)
[2024-06-12] MEDS: SENOKOT 17.2 MG PO (20:21)
[2024-06-13 03:34] VITALS: BP 108/63
[2024-06-13] MEDS: ANCEF 5 IV (05:17)
[2024-06-13] MEDS: SYNTHROID 75 MCG PO (05:58)
[2024-06-13] MEDS: LOKELMA 10 GRAM PO ×3 (05:58→17:17)
[2024-06-13 06:24] LABS: Hematocrit 28.8 % (37.0-47.0); Hemoglobin 9.3 g/dL (12.0-16.0); Mean Corp Hgb Conc. 32.3 g/dL (33.0-37.0); Mean Corpuscular Hgb 29.9 pg (27.0-31.0); Mean Corpuscular Volume 92.6 fL (81.0-99.0); Platelet Count 310 10^3/uL (130-400); Red Blood Cell Count 3.11 10^6/uL (4.20-5.40); Red Cell Dist. Width 16.2 % (11.5-14.5); White Blood Cell Count 14.4 10^3/uL (4.8-10.8)
[2024-06-13 06:44] LABS: Blood Urea Nitrogen 30 mg/dl (7-17); Calcium 9.2 mg/dl (8.4-10.2); Carbon Dioxide 21 mmol/L (22-30); Chloride 101 mmol/L (98-107); Estimated Creatinine Clearance 28 ml/min; Glucose 124 mg/dl (70-99); Potassium 5.4 mmol/L (3.5-5.1); Sodium 135 mmol/L (135-145); eGFR 44.64
[2024-06-13 07:05] VITALS: BP 103/71
--- NOTE | 2024-06-13 07:54 | W.PN.ORTHO ---
Today's Communication / Plan
-
83-year-old female postop day 1 left hip hemiarthroplasty with Dr. Marmolejo
Weightbearing as tolerated with assist devices as indicated
PT/OT/discharge planning
Total hip precautions x 6 weeks
May resume baseline Eliquis for DVT prophylaxis
Pain well-controlled with current regimen
Diet per primary
Orthopedic surgery will continue to follow
Assessment
.
Distal Motor Intact: Yes
Dressing:
Clean, dry and intact.
Plan
.
Surgery / Date: Left hip hemiarthroplasty 06/13 Dr. Marmolejo
Activity:
Out of bed.
PT/OT
Subjective
.
.:
Patient resting comfortably.
Vital Signs and Labs
.
Vital Signs and Labs:
Lab Results
06/13/24 04:56
06/13/24 04:56
Temp Pulse Resp BP Pulse Ox
97.5 F 89 18 103/71 96
06/13/24 07:05 06/13/24 07:05 06/13/24 07:05 06/13/24 07:05 06/13/24 07:05
Non-invasive Hgb result: 9.7
[2024-06-13] MEDS: SODIUM BICARBONATE 1300 MG PO (08:01)
[2024-06-13] MEDS: THERAGRAN 1 TABLET PO (08:01)
[2024-06-13] MEDS: PROTONIX 40 MG PO (08:01)
[2024-06-13] MEDS: SENOKOT PO ×2 (08:02→08:14)
[2024-06-13] MEDS: NEURONTIN 200 MG PO (08:02)
[2024-06-13] MEDS: COLACE 100 MG PO (08:02)
[2024-06-13] MEDS: CARDIZEM 30 MG PO ×2 (08:02→13:27)
[2024-06-13] MEDS: ProAmatine 10 MG PO ×3 (08:06→17:43)
[2024-06-13] MEDS: ELIQUIS 2.5 MG PO (08:06)
--- NOTE | 2024-06-13 10:44 | PN.CDI ---
CDI
- -
CDI:
Physician Documentation Request
Admit Date: 06/11/24 11:27
Dear Doctor Kevyn,
06/11 Wound Care Note: 'healing stage 3 sacral pressure injury. Ulcer small and pink with slow to ruben stage 1 pressure injury proximal to healing ulcer.'
Physician documentation of the type and location of wounds is required for compliant documentation. Based on the above clinical findings and your assessment, please provide the following in your progress note:
1. Location of the ulcer/wound, including laterality.
2. Type (etiology) of ulcer/wound:
- Diabetic ulcer
- Arterial (ischemic) ulcer
- Traumatic wound
- Venous stasis ulcer
- Pressure (decubitus) ulcer
- Non-healing surgical wound
- Other
- Unable to determine
3. For a non-pressure ulcer, please indicate the depth/severity:
- Limited to the breakdown of skin
- With fat layer exposed
- With necrosis of muscle
- With necrosis of bone
- Other
- Unable to determine
4. If a pressure ulcer, please also include the stage* of the ulcer:
- Stage 1 - Skin intact, non-blanchable redness
- Stage 2 - Partial thickness loss of dermis, includes intact or open blister
- Stage 3 - Full thickness tissue not including bone, tendon or muscle
- Stage 4 - Full thickness tissue loss, including exposed bone, tendon or muscle
- Unstageable - Full thickness loss in which the base of the ulcer is covered by slough (yellow, maharaj, garcia, green or brown) and/or eschar (maharaj, brown or black) in the wound bed.
- Unable to determine
Use of terms such as suspected, likely, concern for, or probable (associated with a specific diagnosis that is being evaluated, monitored, or treated as if it exists) are acceptable and can be coded in the inpatient setting, when documented at the
time of discharge.
Thank you,
Kellen Guzmán RN, BSN
CDI Specialist
Available via [facility] text
Please use your independent medical judgment in providing your response.
*Source: National Pressure Ulcer Advisory Panel (NPUAP)
[2024-06-13 10:49] VITALS: BP 112/76; PULSE 82; O2SAT 97
[2024-06-13 11:10] VITALS: BP 125/65
--- NOTE | 2024-06-13 11:36 | W.PN.CARDCBS ---
Addendum entered and electronically signed by Oscar Henao MD 06/13/24 14:30:
I saw and examined the patient.
The Doubler Operator's note was reviewed and I agree with the note.
Comment: Briefly, 83-year-old woman past medical history of atrial fibrillation and prior CVA who presents after mechanical fall found to have left femur fracture and is now status post fixation by orthopedic surgery
No cardiovascular complaints today
Home cardiac meds including Eliquis have been resumed
Stable from my perspective, we will sign off
Outpatient follow-up has been arranged, she is interested in hearing more about a Watchman left atrial occlusion device at that time
Original Note:
Today's Communication / Plan
-
Back on Eliquis
Follow hemoglobin in setting of recent surgery
Continue postoperative care
Outpatient cardiac follow-up arranged
Will sign off
Impression / Plan
-
PCP: Dr. David Valdez
Cardiology: Dr. Ku
Impression:
Presentation with fall, L hip pain
L femur fracture
CHELSEA on CKD
Hyponatremia
Chronic anemia
Admission for CVA while off OAC 05/2024
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
Paroxysmal atrial fibrillation and typical atrial flutter
s/p PVI, CTI flutter ablation, 08/25/19
occurrence with RVR 12/26/23 then spontaneously converted to SR 12/29/23, recurred with Afib 12/31/23 and then spontaneously converted to SR again 01/01/24
Chronic Eliquis anticoagulation
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
HTN
HLD
GERD
Hypothyroidism
Arthritis
FARIDA 08/19/2019: EF 60 to 65%, mild MR
Echo 12/31/23: EF 65-70%, mild conc LVH, no , mild TR with PAP 30-35 mmHg
Echo 01/09/2024: EF 65 to 70%, mild concentric LVH, trace MR, trace AI
Plan:
-Patient presents with a fall, and subsequent left hip pain. Imaging with acute subcapital fracture of left femur.
-status post L hemiarthroplasty 06/12
-denies CP, SOB, palpitations
-in SR on review of tele overnight
-back on eliquis 2.5mg BID as of this morning. had recent admission 05/2024 for CVA. hgb 9.3 on 06/13, consider repeating as OP
-OP cardiac follow up arranged
-d/w patient and family at bedside
-will plan to sign off, please call with questions.
Progress Note - Grocery Clerk Checking
Subjective
Date of Service: June 13, 2024
Feeling well. No issues overnight
Objective
Labs:
06/13/24 04:56
06/13/24 04:56
Labs
Hgb 9.3 g/dL (12.0-16.0) L 06/13/24 04:56
Hct 28.8 % (37.0-47.0) L 06/13/24 04:56
Plt Count 310 10^3/uL (130-400) 06/13/24 04:56
Sodium 135 mmol/L (135-145) 06/13/24 04:56
Potassium 5.4 mmol/L (3.5-5.1) H 06/13/24 04:56
BUN 30 mg/dl (7-17) H 06/13/24 04:56
Creatinine 1.2 mg/dL (0.6-1.0) H 06/13/24 04:56
Glucose 124 mg/dl (70-99) H 06/13/24 04:56
Vital Signs and I&O:
Vital Signs
Temp Pulse Resp BP Pulse Ox
97.5 F 89 18 103/71 96
06/13/24 07:05 06/13/24 07:05 06/13/24 07:05 06/13/24 07:05 06/13/24 07:59
Vital Signs
Temp Pulse Resp BP Pulse Ox
97.5 F 89 18 103/71 96
06/13/24 07:05 06/13/24 07:05 06/13/24 07:05 06/13/24 07:05 06/13/24 07:59
Intake & Output
06/11/24 06/12/24 06/13/24 06/14/24
07:59 07:59 07:59 07:59
Intake Total 960 / 960 2000 / 2000
Output Total 580 / 580 900 / 900
Balance 380 / 380 1100 / 1100
Physical Exam
Physical Exam
GEN: No distress, awake, alert, oriented x3. sitting in chair
HEENT: supple, anicteric, mmm, eomi.
LUNGS: CTA B/L, no wheezes/rales
CV: Reg, S1/S2, no murmur
ABD: soft, BS+, NT/ND
EXT: No cyanosis, clubbing, edema.
NEURO: Gross non-focal
SKIN: Warm, pink, dry. No rash. ecchymoses of R face.
[2024-06-13] MEDS: TORADOL 15 MG IV (11:58)
[2024-06-13] MEDS: FLUSH (NSS) 2 FLUSH IV (11:58)
--- NOTE | 2024-06-13 12:03 | CM ---
Addendum entered by Phyllis Fox 06/13/24 12:54:
Notified [facility] Liaison - pt will need an air mattress
Addendum entered by Phyllis Fox 06/13/24 12:21:
Pt aware - accepted at [facility]
Discussed IMM
Plan - anticipate trans to [facility] when medically ready
R - [phone]
- [phone]
Original Note:
Case management following for discharge planning
Chart reviewed
PT/OT recs - acute rehab. Pt recently discharged from [facility]
Referral sent in [facility] for [facility]. TT sent to [facility]
Received message from Liaison - can accept. TT sent to Dr Bagley
Plan - anticipate trans to [facility] when medically ready
[2024-06-13] MEDS: TYLENOL 650 MG PO ×2 (13:27→17:57)
--- NOTE | 2024-06-13 13:49 | W.PN.HOSP.TC ---
Today's Communication/Plan
-
Lokelma
Low K diet
PT/OT
Incentive jac
Ankle pumps
Assessment / Plan
Assessment / Plan
NAD, sitting in bedside chair
Scleral anicteric, senile arcus
Moist mucous membranes
No JVD
CTA bilateral
Normal S1-S2 no murmurs
Soft nontender nondistended bowel sounds active
No peripheral pitting edema
Moves extremities spontaneously
Left leg incision line covered by bandage, able to wiggle toes well, no hematomas, no mccall turners chuck sign
AAOx3
Mechanical fall
-Nonweightbearing as tolerated
-PT OT consulted
-Check orthostatics
Left femoral neck fracture
-Orthopedics following planning for OR at 11am
-Hold Eliquis, resume following day after OR
-Can likely resume age and weight adjusted Eliquis post operatively
-Postop PT OT
-Will be comanaged with orthopedics
-Postop incentive spirometer should be provided
-Nonweightbearing as tolerated
-Cardiology consulted for clearance
-Will plan to medically optimize
-N.p.o. until surgery, then can resume diet
Hyperkalemia
-Avoid K sparing agents
-Started Lokelma TID
-Low K diet
Leukocytosis
-Likely reactive
-Without foci of infectious process
-If febrile can consider bcx and atb at that time
P A-fib
Continue diltiazem and hold apixaban
Hyponatremia
Continue to encourage p.o. intake
Hypothyroid continue Synthroid
GERD continue PPI
Polymyalgia rheumatica
Continue as needed prednisone
DC to MR
Anticipated Discharge: Today
Subjective/Interval History
-
Date of Service: June 13, 2024
some pain when she moves her lle but is okay otherwise
some new brusing on her face - right half. states after surgery occured
Objective Data
-
Labs:
Laboratory Results
06/13/24
04:56
WBC 14.4 H
Hgb 9.3 L
Hct 28.8 L
Plt Count 310
Sodium 135
Potassium 5.4 H
Chloride 101
Carbon Dioxide 21 L
BUN 30 H
Creatinine 1.2 H
Glucose 124 H
Calcium 9.2
Vital Signs:
Vital Signs
Temp Pulse Resp BP Pulse Ox
97.7 F 83 18 125/65 95
06/13/24 11:10 06/13/24 11:10 06/13/24 11:10 06/13/24 11:10 06/13/24 11:10
I&O
06/12/24 06/13/24 06/14/24
06:59 06:59 06:59
Intake Total 720 / 720 2240 / 2240
Output Total 330 / 330 1150 / 1150
Balance 390 / 390 1090 / 1090
--- NOTE | 2024-06-13 14:04 | W.DCSUMMARY ---
Addendum entered and electronically signed by Lucio Bagley MD 06/15/24 15:38:
healing stage 3 sacral pressure injury. Ulcer small and pink with slow to ruben stage 1 pressure injury proximal to healing ulcer.'
Original Note:
Discharge Summary
Discharge Data
Date of Admission: 06/11/24
Date of Discharge: 06/13/24
-
Pending Results: No
Hospital Course
83F History of mesenteric ischemia s/p ostomy, P A-fib, CVA, hyperlipidemia, hypothyroidism, polymyalgia spine stenosis with sciatica and trigeminal neuralgia along with anxiety presented after mechanical fall. Found to have a left hip fracture
after landing on her left hip. Was taken to the OR with orthopedic surgery for repair. Was evaluated by physical therapy recommended acute inpatient rehab. Loss therapy excepted.
Will need to continue taking 2.5 mg Eliquis twice daily. Continue incentive spirometer use. Continue colostomy care.
Low patassium diet, Lokelma 5mg PO dialy. Home dose of lokelm is 5mg MWF.
Lumbar xray prehospital (06/10)
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
- - Outpt spine surgery follow up
Discharge Plan
-
Patient Disposition: Acute Rehab Facility
Discharge Diagnosis/Procedures: Left hip fracture
History of mesenteric ischemia s/p ostomy, P A-fib, CVA, hyperlipidemia, hypothyroidism, polymyalgia spine stenosis with sciatica and trigeminal neuralgia along with anxiety
Activity Restrictions/Additional Instructions:
Presented after mechanical fall. Found to have a left hip fracture after landing on her left hip. Was taken to the OR with orthopedic surgery for repair. Was evaluated by physical therapy recommended acute inpatient rehab. Loss therapy excepted.
Will need to continue taking 2.5 mg Eliquis twice daily. Continue incentive spirometer use. Continue colostomy care.
Low patassium diet, Lokelma 5mg PO dialy. Home dose of lokelm is 5mg MWF.
Lumbar xray prehospital (06/10)
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
- - Outpt spine surgery follow up
Wound Care Instructions
Sacral ulcer-clean with saline, silicone border foam, change q 3 days and prn loosened dressing.
Air mattress.
Elevate heels off bed with pillow.
Turning schedule
Pressure redistributing chair cushion (i.e. Air chair cushion).
Ostomy supplies: [place]ley wafer # [id number], Mariella seal and high output pouch #[id number] or [place] pouch # [id number], change 2 times a week and as needed for leakage.
Follow up at wound care center if needed, call for an appointment.
Referrals:
Evgeny Ku MD [Active] - 07/25/24 10:40 am (You have a cardiology follow-up appointment at the [facility]. Please call with questions)
Sarahi Rocha PA-C [Specified Professional Personl] - 06/25/24 3:40 pm ([facility] Ku's physician child center assistant, Sarahi. Please call with questions)
David Valdez MD [Family Provider] -
Danny Delaney MD [Active] - in one to two weeks
Prescriptions:
New
acetaminophen 325 mg Tablet
650 mg PO Q4HWA PRN (Reason: mild pain) 5 Days Qty: 5 0RF
Continued
ondansetron HCl 4 mg Tablet
4 mg PO Q8HPRN PRN (Reason: NAUSEA/VOMITING)
Eliquis 2.5 mg Tablet
2.5 mg PO BID Qty: 0 0RF
levothyroxine [Synthroid] 75 mcg Tablet
75 mcg PO DAILY
Patient Comments:
no pharmacy fills for 100mcg, ecw on 06/09/24 75mcg pharmacy filled 75mcg
prednisone 5 mg tablet
5 mg PO DAILYPRN PRN (Reason: polymyalgia)
gabapentin 100 mg capsule
200 mg PO BID
sodium bicarbonate 650 mg tablet
1,300 mg PO DAILY
diltiazem HCl 30 mg Tablet
30 mg PO TID@0800,1400,2000 30 Days Qty: 90 0RF
midodrine 5 mg Tablet
10 mg PO TID@0700,1300,1800 30 Days Qty: 180 0RF
diclofenac sodium 1 % Gel
2 g topical QIDPRN PRN (Reason: right shoulder pain) 30 Days Qty: 150 0RF
pantoprazole 40 mg Tablet,Delayed Release (Dr/Ec)
40 mg PO DAILY 30 Days Qty: 30 0RF
multivitamin with folic acid [Tab-A-Taz] 400 mcg Tablet
1 tab PO DAILY 30 Days Qty: 30 0RF
Changed
Lokelma 5 gram powder in packet
5 g PO DAILY Qty: 0 0RF
Discontinued
acetaminophen 325 mg Tablet
650 mg PO Q6HPRN PRN (Reason: mild pain) Qty: 0 0RF
tramadol 50 mg Tablet
50 mg PO Q6HPRN PRN (Reason: moderate pains)
Discharge Orders:
Discharge Patient (As Directed); Ordered 06/13/24
Ordered By: Lucio Bagley
Discharge Date and Time
Print Language: NORWEGIAN
--- NOTE | 2024-06-13 15:00 | WOUNDNOTE ---
FACE/NECK (L SIDE)
--- NOTE | 2024-06-13 15:00 | WOUNDNOTE ---
WOC RN note Patient sitting in chair with air chair cushion. L lateral calf and R arm dermal skin tears noted. Skin tears pink. RN Tamiko stated they occurred in OR. Red/purple ecchymotic areas noted on R side of face and neck with dry scab on neck.
Ileostomy appliance intact without leakage. Extras ostomy appliance left in room. Skin on heels intact. R heel protective foam changed. L heel foam maintained. LLE and RUE dressings changed.
[2024-06-13 15:10] VITALS: BP 150/80
[2024-06-13] MEDS: LOKELMA PO (17:22)
[2024-06-13 17:24] VITALS: BP 135/70
== END 2024-06-13 18:14 | DRG 521 ==
LOC: 2 SOUTH 11:27
PROVIDERS: Student in an Organized Health Care Education/Training Program; ADMITTING PHYSICIAN Hospitalist; CONSULT PHYSICIAN Internal Medicine Cardiovascular Disease; EMERGENCY PHYSICIAN Emergency Medicine; FAMILY PHYSICIAN Family Medicine; OTHER PHYSICIAN Orthopaedic Surgery
PROC: 0SRS0J9 Replacement of Left Hip Joint, Femoral Surface with Synthetic Substitute, Cemented, Open Approach (ICD-10-PCS; 2024-06-12)
DX: S72.002A Fracture of unspecified part of neck of left femur, initial encounter for closed fracture (principal); L89.153 Pressure ulcer of sacral region, stage 3; E87.1 Hypo-osmolality and hyponatremia; N17.9 Acute kidney failure, unspecified; Z87.891 Personal history of nicotine dependence; I48.0 Paroxysmal atrial fibrillation; E03.9 Hypothyroidism, unspecified; K21.9 Gastro-esophageal reflux disease without esophagitis; M35.3 Polymyalgia rheumatica; E87.5 Hyperkalemia; I12.9 Hypertensive chronic kidney disease with stage 1 through stage 4 chronic kidney disease, or unspecified chronic kidney disease; E11.22 Type 2 diabetes mellitus with diabetic chronic kidney disease; N18.9 Chronic kidney disease, unspecified; D64.9 Anemia, unspecified; Z79.01 Long term (current) use of anticoagulants; I49.5 Sick sinus syndrome; E78.5 Hyperlipidemia, unspecified; L89.91 Pressure ulcer of unspecified site, stage 1; Z93.3 Colostomy status; W19.XXXA Unspecified fall, initial encounter
CPT/HCPCS: 72110; 73502; 80048; 80053; 83735; 85027; 86850; 86900; 86901; 93005; 96374; 96375; 97116; 97163; 97167; 97530; 99285; C1713; C1776

== ENCOUNTER 2024-08-19 06:11 | Day surgery (SDC) | payer MEDICARE, BC, SELFPAY ==
[2024-08-19 11:30] VITALS: BP 132/90; BMI 19.2
[2024-08-19 13:05] VITALS: BP 102/60
[2024-08-19 13:15] VITALS: BP 107/72
== END 2024-08-19 13:40 | disposition home or self-care (01) ==
LOC: SDS 06:11
PROVIDERS: ATTENDING PHYSICIAN Surgery
DX: Z01.818 Encounter for other preprocedural examination (principal)
CPT/HCPCS: 45330

== ENCOUNTER 2024-10-04 15:38 | Observation (INO) | payer MEDICARE, BC, SELFPAY ==
[2024-10-04] VITALS (9 sets, daily range): BP systolic 101–152; BP diastolic 52–89; PULSE 97; O2SAT 97; BMI 20.6; BMI 20.3
--- NOTE | 2024-10-04 08:36 | ED.GENMED ---
History of Present Illness
General
Chief Complaint: Back Pain
Time Seen by Provider: 10/04/24 08:31
History of Present Illness
History of Present Illness:
84-year-old female with history of A-fib on Eliquis presents to the emergency department for evaluation of midline low back radiating to the upper thighs after a fall 3 days ago. Reportedly he slipped while getting ready, gradually lowered herself
to the ground. present at that time as any forceful trauma with the fall. She was assisted back to bed by first responders. Pain gradually worsening since that time. Having difficulty standing secondary to severe pain. No lower
extremity paresthesias. Radicular nature pain is predominantly only when upright. No urinary retention or incontinence
Past History
Past History
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
DJD, sacral wound, diverticulitis) and Other (Toxic metabolic encephalopathy December 2023)
ED Past Surgical History: Appendectomy, Bowel resection, Cardiac (Ablation) and Orthopedic (Right SIMONE)
Social History
Tobacco: Former smoker
Alcohol: Occasional
Drug: None
Personal:
Living: with family
Employment: Retired
Family History
Family History: Other (Reviewed and noncontributory)
Review of Systems
Review of Systems
Allergies reviewed?: Yes
All Other Systems: ROS reviewed and negative except as documented in HPI and ROS
Phy Exam
Physical Exam
Physical Exam:
GEN: Well appearing, NAD, WDWN
HEENT: Oral mucosa moist, no scleral icterus
Cardiac: Regular rate
Lung: No respiratory distress, no tachypnea
MSK: No gross deformity or injuries. No midline L-spine or paraspinous muscle tenderness. Lumbar range of motion is normal however pain is increased when fully erect.
Skin: Good color, no pallor or jaundice, no rashes
Neuro: AO x3, moves all extremities freely. Bilateral lower extremity strength is 5 out of 5 in all raphael, normal hip range of motion bilaterally with no increased pain, able to perform straight leg raise bilaterally
Psych: Calm, cooperative
Course
Orders/Labs/Results
Orders:
Orders
10/04/24 08:35
CT Lumbar Spine W/o Iv Contras Urgent
Comment:
Reason For Exam: low back pain, fall
Tramadol HCl [Ultram] 50 mg PO NOW STA
10/04/24 08:36
Acetaminophen [Tylenol] 650 mg PO NOW STA
10/04/24 09:44
Pt Eval And Treat Urgent
Activity Level: As Tolerated
10/04/24 10:06
Complete Blood Count/No Diff Urgent
Comprehensive Metabolic Panel Urgent
10/04/24 10:53
Case Management Consult ONCE
Case Management Consult: Retirement Placement
Abnormal Lab Results
10/04/24
10:06
RBC 3.68 L 10^6/uL
(4.20-5.40)
Hgb 10.6 L g/dL
(12.0-16.0)
Hct 33.4 L %
(37.0-47.0)
MCHC 31.7 L g/dL
(33.0-37.0)
RDW 19.2 H %
(11.5-14.5)
MPV 10.7 H fL
(7.4-10.4)
Sodium 131 L mmol/L
(135-145)
Carbon Dioxide 18 L mmol/L
(22-30)
BUN 42 H mg/dl
(7-17)
Creatinine 1.6 H mg/dL
(0.6-1.0)
AST 50 H U/L
(14-36)
ALT 59 H U/L
(0-35)
Alkaline Phosphatase 367 H U/L
(38-126)
10/04/24 10:06
10/04/24 10:06
Vital Signs
Initial and Last Documented VS:
Initial Vital Signs
Temp Pulse Resp BP Pulse Ox
98.0 F 81 16 152/89 97
10/04/24 08:20 10/04/24 08:20 10/04/24 08:20 10/04/24 08:20 10/04/24 08:20
Last Documented Vital Signs
Temp Pulse Resp BP Pulse Ox
98.0 F 67 18 116/64 99
10/04/24 08:20 10/04/24 11:28 10/04/24 11:28 10/04/24 12:00 10/04/24 12:15
MDM/Problems Addressed
MDM/Problems Addressed:
Imaging shows no evidence for acute fracture however patient is quite unsteady with ambulation. Evaluated by physical therapy and they agree the patient is not stable for discharge home. Will admit to the hospitalist service as CM cannot place the
patient
*Critical Care Note
Total Time (30-74mins, 75-104mins- exclusive of procedures): Not Applicable
Update Note
Update Note:
1120: Discussed admission with hospitalist. They request CM evaluation for possible SNF placement today.
1405: CM unable to place, will admit to hospitalist service for ambulatory dysfunction
ED Attending Note
-
Portions of this chart may have been created with voice recognition software.� Occasional wrong word or��sound alike� substitutions may have occurred due to the inherent limitations of voice recognition software.
Discharge Plan
Departure
Patient Disposition: Admit
Date of Disposition: 10/04/24
Time of Disposition: 10:31
Admit to: Med/Surg
Presentation/result/management discussed w/ accepting MD/DO: Hospitalist
Discharge Problem:
Intractable low back pain, Ambulatory dysfunction
Prescriptions:
No Action
cholecalciferol (vitamin D3) 50 mcg (2,000 unit) tablet
125 mcg PO DAILY
Eliquis 2.5 mg Tablet
2.5 mg PO BID Qty: 0 0RF
Lokelma 5 gram powder in packet
5 g PO DAILY Qty: 0 0RF
levothyroxine [Synthroid] 100 mcg Tablet
100 mcg PO DAILY
prednisone 1 mg Tablet
3 mg PO DAILY
gabapentin 300 mg Capsule
300 mg PO DAILY
gabapentin 300 mg Capsule
600 mg PO HS
acetaminophen 325 mg tablet
650 mg PO TID
Rx Instructions:
PRN for mild pain for 5 days
midodrine 5 mg tablet
5 mg PO TID@0700,1300,1800
diltiazem HCl 120 mg Capsule,Extended Release 24hr
120 mg PO DAILY
pantoprazole 40 mg Tablet,Delayed Release (Dr/Ec)
40 mg PO DAILY 30 Days Qty: 30 0RF
multivitamin with folic acid [Tab-A-Taz] 400 mcg Tablet
1 tab PO DAILY 30 Days Qty: 30 0RF
ascorbic acid (vitamin C) [Vitamin C] 500 mg Tablet
500 mg PO DAILY 30 Days Qty: 30 0RF
Referrals:
David Valdez MD [Family Provider] -
Interventions
Interventions:
*Risk Screen - Suicide Last Done: 10/04/24 08:20
*General Assessment Last Done: 10/04/24 08:20
*Neglect/Abuse Screening Last Done: 10/04/24 08:20
ED- Fall Risk Assessment Last Done: 10/04/24 08:20
*ED COVID-19 Vaccine History Last Done: 10/04/24 08:20
ED-Musculoskeletal Assessment Last Done: 10/04/24 08:20
Discharge Date and Time
Print Language: GIBRALTARIAN
[2024-10-04] MEDS: TYLENOL 650 MG PO ×3 (08:58→19:55)
[2024-10-04] MEDS: ULTRAM 50 MG PO (08:58)
[2024-10-04 10:13] LABS: Hematocrit 33.4 % (37.0-47.0); Hemoglobin 10.6 g/dL (12.0-16.0); Mean Corp Hgb Conc. 31.7 g/dL (33.0-37.0); Mean Corpuscular Hgb 28.8 pg (27.0-31.0); Mean Corpuscular Volume 90.8 fL (81.0-99.0); Mean Platelet Volume 10.7 fL (7.4-10.4); Platelet Count 276 10^3/uL (130-400); Red Blood Cell Count 3.68 10^6/uL (4.20-5.40); Red Cell Dist. Width 19.2 % (11.5-14.5); White Blood Cell Count 8.7 10^3/uL (4.8-10.8)
[2024-10-04 10:28] LABS: ALT (SGPT) 59 U/L (0-35); AST (SGOT) 50 U/L (14-36); Albumin 3.8 g/dl (3.5-5.0); Alkaline Phosphatase 367 U/L (38-126); Blood Urea Nitrogen 42 mg/dl (7-17); Calcium 9.5 mg/dl (8.4-10.2); Carbon Dioxide 18 mmol/L (22-30); Chloride 102 mmol/L (98-107); Estimated Creatinine Clearance 21 ml/min; Glucose 96 mg/dl (70-99); Potassium 4.5 mmol/L (3.5-5.1); Sodium 131 mmol/L (135-145); Total Protein 6.5 g/dl (6.3-8.2); eGFR 31.41
--- NOTE | 2024-10-04 12:06 | CM ---
Addendum entered by Serena Gutierrez 10/04/24 15:15:
No accepting beds at this time
CM will continue to coordinate SNF placement
Original Note:
ED CM consult for SNF placement
CMmet with pt, spouse/Jose Elias, dtr/Theresa and dtr/Jaylin
Pt [place]
Pt is indep mostly with a SPC, has a WW for use as needed
Has a RTS, shower chair and grab bars
Spouse assists with LE dressing
Pt has hx with [facility] an dhx at [place]
Pt has a private paid caregiver 1 hours 2x weekly
Denies financial insecurities
PCP- David Valdez
Rx- Anai Clements
SNF recs by PT
Pt without [facility] qualifying stay
Call to [facility] and pt is eligible for [employer] waiver
Participating provider list provided
PASRR completed and referrals sent via [facility]
[employer] will require note from participating hospitalist indicating SNF placement needed and recommended
Note would need to be faxed to [phone], closes at noon tomorrow
Awaiting outcome of bed search
Family will discuss if private paying for SNF is feasible if unable to obtain auth
--- NOTE | 2024-10-04 14:37 | HPS.HSE ---
Family Physician
-
Family Physician: David Valdez
Chief Complaint
-
Right lower buttock/hip pain
History of Present Illness
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
prednisone presents with severe worsening right lower buttock/right lateral hip pain. Patient has degenerative disc disease, and experienced severe lower back pain 3 days ago. At that time, she also slid down from the bed to the floor, denies
fall. Today, she presents with severe right-sided hip pain with walking. She is unable to ambulate due to the pain. She denies chest pain, shortness of breath, or palpitations. No fever, no vomiting. No urinary retention, bowel or bladder
incontinence. Seen by PT in the ER, who recommended short-term rehab.
Medical History
Past Medical History
Past Medical History: Reports Other
Additional Past Medical History:
Bowel ischemia status post colectomy with ileostomy
CVA
Hypertension
Paroxysmal atrial fibrillation/flutter on Eliquis
Hyperlipidemia
Hypothyroidism
Hyponatremia
Hyperkalemia
Polymyalgia rheumatica
Anemia
Lumbar spinal stenosis
Sciatica
Trigeminal neuralgia
Anxiety
Hypoalbuminemia
Hiatal hernia
Left hip fracture status post surgery
Past Surgical History: Reports Other
Additional Past Surgical History:
Appendectomy
Total colectomy and diverting ileostomy
Right hip arthroplasty
Left hip hemiarthroplasty
Cataract surgery
Social History
Tobacco: Former Smoker
Alcohol: None
Drug: None
Living: With Family
Family History
Family History: Not pertinent
Allergies / Home Medications
Allergies reflects when Allergies were last updated in [facility].
Home Medications with original date entered in [facility]
Allergy/Medication List:
Allergies
Allergy/AdvReac Type Severity Reaction Status Date / Time
amlodipine Allergy Nausea Verified 10/04/24 08:27
codeine Allergy Nausea / Verified 10/04/24 08:27
Vomiting
doxycycline Allergy Hives Verified 10/04/24 08:27
hydrocodone [From Vicodin] Allergy Vomiting Verified 10/04/24 08:27
metoprolol [From Lopressor] Allergy Dizzy Verified 10/04/24 08:27
sulfamethoxazole Allergy Rash Verified 10/04/24 08:27
[From Bactrim]
trimethoprim [From Bactrim] Allergy Rash Verified 10/04/24 08:27
Home Medications Table - record
�Medication �Instructions �Recorded �Confirmed
apixaban 2.5 mg tablet (Eliquis) 2.5 mg PO BID Blood clot 05/13/24 10/04/24
prevention/tx #0 tabs
multivitamin with folic acid 400 1 tab PO DAILY supplement 30 days 05/27/24 10/04/24
mcg tablet (Tab-A-Taz) #30 tabs
pantoprazole 40 mg tablet,delayed 40 mg PO DAILY GERD 30 days #30 05/27/24 10/04/24
release tabs
sodium zirconium cyclosilicate 5 5 g PO DAILY hyperkalemia #0 ea 06/13/24 10/04/24
gram oral powder packet (Lokelma)
ascorbic acid (vitamin C) 500 mg 500 mg PO DAILY Supplement 30 days 06/20/24 10/04/24
tablet (Vitamin C) #30 tabs
cholecalciferol (vitamin D3) 50 125 mcg PO DAILY Supplement 08/19/24 10/04/24
mcg (2,000 unit) tablet
acetaminophen 325 mg tablet 650 mg PO TID 10/04/24 10/04/24
diltiazem HCl 120 mg capsule,24 120 mg PO DAILY 10/04/24 10/04/24
hr,extended release
gabapentin 300 mg capsule 300 mg PO DAILY 10/04/24 10/04/24
gabapentin 300 mg capsule 600 mg PO HS 10/04/24 10/04/24
levothyroxine 100 mcg tablet 100 mcg PO DAILY 10/04/24 10/04/24
(Synthroid)
midodrine 5 mg tablet 5 mg PO TID@0700,1300,1800 10/04/24 10/04/24
orthostasis- low blood pressure
prednisone 1 mg tablet 3 mg PO DAILY 10/04/24 10/04/24
Review of Systems
-
A 12 point ROS was completed and negative except as noted: Yes
Physical Exam
Vital Signs
Vital Signs
Temp Pulse Resp BP Pulse Ox
98.0 F 67 18 116/64 99
10/04/24 08:20 10/04/24 11:28 10/04/24 11:28 10/04/24 12:00 10/04/24 12:15
Physical Exam
General: No Apparent Distress
HEENT: NormoCephalic, Anicteric and Moist mucous membranes
Respiratory: Clear and Wheezes
Cardiac: S1/S2 and Regular Rhythm
GI: Soft, Non Tender, Non Distended, Normal Bowel Sounds and Other (Ileostomy with yellow stool noted)
Musculoskeletal: No Clubbing, No Cyanosis and No Edema
Skin: Warm and Dry
Neuro: Awake, Alert and Oriented
Psych: Calm
Laboratory Results
-
10/04/24 10:06
10/04/24 10:06
Laboratory Results
Total Bilirubin 1.0 mg/dl (0.2-1.3) 10/04/24 10:06
AST 50 U/L (14-36) H 10/04/24 10:06
ALT 59 U/L (0-35) H 10/04/24 10:06
Alkaline Phosphatase 367 U/L (38-126) H 10/04/24 10:06
Impression/Plan
-
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
prednisone presents with severe worsening right lower buttock/right lateral hip pain. Patient has degenerative disc disease, and experienced severe lower back pain 3 days ago. At that time, she also slid down from the bed to the floor, denies
fall. Today, she presents with severe right-sided hip pain with walking. She is unable to ambulate due to the pain. She denies chest pain, shortness of breath, or palpitations. No fever, no vomiting. No urinary retention, bowel or bladder
incontinence. Seen by PT in the ER, who recommended short-term rehab.
#Right hip pain
#Chronic lower back pain
CT lumbar spine shows degenerative disc disease, negative for fracture or dislocation
Suspect right hip pain is secondary to lumbar radiculopathy from degenerative disc disease and lower back pain
Check right hip x-rays for completeness sake
Continue Tylenol 650 mg p.o. 3 times a day as needed for mild pain, tramadol 50 mg p.o. 3 times daily as needed
Treat with prednisone 40 mg daily for 5 days for anti-inflammatory effects. Start laxatives. Continue home gabapentin
Seen by PT, recommended short-term rehab
#Acute kidney injury
Creatinine 1.6 today, baseline is 1.3
Gentle IV fluids, trend creatinine, no nephrotoxic drugs/NSAIDs
#Elevated LFTs
Suspect a recent Tylenol use
Limit Tylenol use less than 2 g a day, trend LFTs
#Paroxysmal atrial fibrillation
Continue diltiazem 120 mg daily, Eliquis 2.5 mg twice a day
#Polymyalgia rheumatica
Hold home prednisone 3 mg daily while on increased prednisone dose for right hip pain
#Chronic hyperkalemia
Continue home Lokelma 5 g daily
#Hypothyroidism
Continue levothyroxine 100 mcg daily
#GERD
Continue PPI
#History of bowel ischemia status post subtotal colectomy with ileostomy
DVT prophylaxis�Eliquis
DNR
Updated family at bedside 10/04
Total time spent to see the patient on the floor, examine the patient, review data and lab results, discuss treatment plan with patient, nursing staff around 77 minutes.
[2024-10-04] MEDS: CARDIZEM CD 120 MG PO (15:35)
[2024-10-04] MEDS: DELTASONE 40 MG PO (15:36)
[2024-10-04] MEDS: NSS 1000 IV (15:38)
--- NOTE | 2024-10-04 16:46 | EDRN ---
Patient taken to room 2102 on stretcher with NSS infusing.
--- NOTE | 2024-10-04 17:21 | PTCARENOTE ---
Patient admitted with ambulatory dysfunction and for placement.Patient had a fall from her bed 3 days ago and has had increased back pain radiatingto both legs ever since.She said she is now unable to walk.When she stands she reports her pain at a 9
out of 10.Vital signs are stable at admission.The patient is in her bed with the call shah in reach.
[2024-10-04] MEDS: LOKELMA 5 GRAM PO (17:47)
[2024-10-04] MEDS: ROXICODONE 5 MG PO (17:50)
[2024-10-04] MEDS: ProAmatine PO (19:53)
[2024-10-04] MEDS: SENOKOT-S PO ×2 (19:55→19:57)
[2024-10-04] MEDS: VITAMIN D3 (cholecalciferol) PO (19:58)
[2024-10-04] MEDS: ELIQUIS 2.5 MG PO (20:55)
[2024-10-04] MEDS: NEURONTIN 600 MG PO (21:28)
[2024-10-05 00:09] VITALS: BP 109/65
[2024-10-05] MEDS: ROXICODONE 5 MG PO (01:59)
[2024-10-05 05:43] LABS: ALT (SGPT) 59 U/L (0-35); AST (SGOT) 59 U/L (14-36); Albumin 3.6 g/dl (3.5-5.0); Alkaline Phosphatase 331 U/L (38-126); Blood Urea Nitrogen 38 mg/dl (7-17); Calcium 9.2 mg/dl (8.4-10.2); Carbon Dioxide 14 mmol/L (22-30); Chloride 108 mmol/L (98-107); Estimated Creatinine Clearance 24 ml/min; Glucose 140 mg/dl (70-99); Potassium 5.1 mmol/L (3.5-5.1); Sodium 131 mmol/L (135-145); Total Protein 6.6 g/dl (6.3-8.2); eGFR 36.87
[2024-10-05] MEDS: SODIUM BICARBONATE 650 MG PO (06:06)
[2024-10-05] MEDS: SYNTHROID 100 MCG PO (06:07)
[2024-10-05] MEDS: ProAmatine 5 MG PO ×2 (06:07→14:02)
[2024-10-05] MEDS: LOKELMA 5 GRAM PO (06:07)
--- NOTE | 2024-10-05 06:14 | PTCARENOTE ---
Carbon dioxide level at 14, reported to overnight provider Ciara LIM; meds ordered see NOV.
[2024-10-05 07:10] VITALS: BP 131/78
--- NOTE | 2024-10-05 08:12 | W.PN.HOSP.TC ---
Addendum entered and electronically signed by Rachel Wagner MD 10/06/24 09:29:
PT/OT maría appreciated patient in need of short term rehab.
Original Note:
Today's Communication/Plan
-
see bold
Assessment / Plan
Assessment / Plan
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
prednisone presents with severe worsening right lower buttock/right lateral hip pain. Patient has degenerative disc disease, and experienced severe lower back pain 3 days ago. At that time, she also slid down from the bed to the floor, denies
fall. Today, she presents with severe right-sided hip pain with walking. She is unable to ambulate due to the pain. She denies chest pain, shortness of breath, or palpitations. No fever, no vomiting. No urinary retention, bowel or bladder
incontinence. Seen by PT in the ER, who recommended short-term rehab.
#Right hip/posterior thigh pain
#Chronic lower back pain
CT lumbar spine shows degenerative disc disease, negative for fracture or dislocation
Right hip x-rays negative for acute fracture or dislocation
Suspect right hip and posterior thigh pain is secondary to lumbar radiculopathy from degenerative disc disease and lower back pain
Continue Tylenol 650 mg p.o. 3 times a day as needed for mild pain, tramadol 50 mg p.o. 3 times daily as needed
Treat with prednisone 40 mg daily for 5 days for anti-inflammatory effects. Started on laxatives. Continue home gabapentin
Seen by PT, recommended short-term rehab, CM on board
#Acute kidney injury
Creatinine 1.4, was 1.6 , baseline is 1.3
Gentle IV fluids, trend creatinine, no nephrotoxic drugs/NSAIDs
#Non-anion gap metabolic acidosis
Change IV fluids to sodium bicarb, start oral sodium bicarb
Trend BMP
#Elevated LFTs
Suspect a recent Tylenol use
Limit Tylenol use less than 2 g a day, trend LFTs
#Hyponatremia
Check a.m. TSH/free T4
Start fluid restriction, trend sodium
#Paroxysmal atrial fibrillation
Continue diltiazem 120 mg daily, Eliquis 2.5 mg twice a day
#Polymyalgia rheumatica
Hold home prednisone 3 mg daily while on increased prednisone dose for right hip pain
#Chronic hyperkalemia
Continue home Lokelma 5 g daily
#Hypothyroidism
Continue levothyroxine 100 mcg daily
#GERD
Continue PPI
#History of bowel ischemia status post subtotal colectomy with ileostomy
DVT prophylaxis�Eliquis
DNR
Updated at bedside 10/05
Total time spent to see the patient on the floor, examine the patient, review data and lab results, discuss treatment plan with patient, nursing staff around 50 minutes.
Physical Exam
General: No Apparent Distress
HEENT: NormoCephalic, Anicteric and Moist mucous membranes
Respiratory: Clear and Wheezes
Cardiac: S1/S2 and Regular Rhythm
GI: Soft, Non Tender, Non Distended, Normal Bowel Sounds and Other (Ileostomy with yellow stool noted)
Musculoskeletal: No Clubbing, No Cyanosis and No Edema
Skin: Warm and Dry
Neuro: Awake, Alert and Oriented
Psych: Calm
Anticipated Discharge: Within 24 hours
Subjective/Interval History
-
Date of Service: October 05, 2024
Patient complains of pain in her right posterior upper thigh, 6 out of 10 in intensity. No fever, no nausea, no vomiting. No chest pain, no shortness of breath.
Objective Data
-
Labs:
Laboratory Results
10/05/24
04:19
Sodium 131 L
Potassium 5.1
Chloride 108 H
Carbon Dioxide 14 L*
BUN 38 H
Creatinine 1.4 H
Glucose 140 H
Calcium 9.2
Total Bilirubin 1.0
AST 59 H
ALT 59 H
Alkaline Phosphatase 331 H
Vital Signs:
Vital Signs
Temp Pulse Resp BP Pulse Ox
97.6 F 73 16 131/78 100
10/05/24 07:10 10/05/24 07:10 10/05/24 07:10 10/05/24 07:10 10/05/24 07:10
I&O
10/04/24 10/05/24 10/06/24
06:59 06:59 06:59
Intake Total 1680 / 1680
Output Total 520 / 520
Balance 1160 / 1160
[2024-10-05] MEDS: ULTRAM 50 MG PO (08:38)
[2024-10-05] MEDS: VITAMIN D3 (cholecalciferol) 125 MCG PO (09:12)
[2024-10-05] MEDS: SODIUM BICARBONATE 1075 MEQ IV (09:12)
[2024-10-05] MEDS: ELIQUIS 2.5 MG PO ×2 (09:14→20:06)
[2024-10-05] MEDS: PROTONIX 40 MG PO (09:17)
[2024-10-05] MEDS: THERAGRAN 1 TABLET PO (09:18)
[2024-10-05] MEDS: TYLENOL 650 MG PO ×2 (09:18→20:08)
[2024-10-05] MEDS: CARDIZEM CD 120 MG PO (09:19)
[2024-10-05] MEDS: NEURONTIN 300 MG PO (09:19)
[2024-10-05] MEDS: DELTASONE 40 MG PO (09:21)
[2024-10-05] MEDS: SENOKOT-S PO (09:29)
[2024-10-05] MEDS: SODIUM BICARBONATE 1300 MG PO ×3 (11:32→21:53)
[2024-10-05 14:05] VITALS: BP 100/47
[2024-10-05] MEDS: ProAmatine PO (17:52)
[2024-10-05] MEDS: SENOKOT-S 2 TABLET PO (20:06)
[2024-10-05] MEDS: NEURONTIN 600 MG PO (21:53)
[2024-10-05 23:15] VITALS: BP 141/83
[2024-10-06] MEDS: SODIUM BICARBONATE 1075 MEQ IV (00:32)
[2024-10-06] MEDS: SYNTHROID 100 MCG PO (05:44)
[2024-10-06] MEDS: LOKELMA 5 GRAM PO (05:44)
--- NOTE | 2024-10-06 05:56 | W.PN.HOSP.TC ---
Today's Communication/Plan
-
cont pain control, lidocain patches added
PT/OT
IVF and bicarb supplementation completed, monitor off
cont monitoring Na and renal function
Assessment / Plan
Assessment / Plan
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
prednisone presents with severe worsening right lower buttock/right lateral hip pain. Patient has degenerative disc disease, and experienced severe lower back pain 3 days ago. At that time, she also slid down from the bed to the floor, denies
fall. Today, she presents with severe right-sided hip pain with walking. She is unable to ambulate due to the pain. She denies chest pain, shortness of breath, or palpitations. No fever, no vomiting. No urinary retention, bowel or bladder
incontinence. Seen by PT in the ER, who recommended short-term rehab.
#Right hip/posterior thigh pain
#Chronic lower back pain
CT lumbar spine shows degenerative disc disease, negative for fracture or dislocation
Right hip x-rays negative for acute fracture or dislocation
Suspect right hip and posterior thigh pain is secondary to lumbar radiculopathy from degenerative disc disease and lower back pain
Continue Tylenol 650 mg p.o. 3 times a day as needed for mild pain, tramadol 50 mg p.o. 3 times daily as needed
Treat with prednisone 40 mg daily for 5 days for anti-inflammatory effects. Started on laxatives. Continue home gabapentin
Seen by PT, recommended short-term rehab, CM on board
Lidocaine 2 Patches right thigh/hip
#Acute kidney injury
initial Creatinine 1.4 since improved
CHELSEA resolved
IVF completed, monitor off
#Non-anion gap metabolic acidosis
resolved
bicarb supplementation discontinued, monitor off
#Elevated LFTs
Suspect a recent Tylenol use
Limit Tylenol use less than 2 g a day, trend LFTs
#Mild Hyponatremia
Mild TSH elevation/free T4 wnl
monitor
#Paroxysmal atrial fibrillation
Continue diltiazem 120 mg daily, Eliquis 2.5 mg twice a day
#Polymyalgia rheumatica
Hold home prednisone 3 mg daily while on increased prednisone dose for right hip pain
#Chronic hyperkalemia
Continue home Lokelma 5 g daily
#Hypothyroidism
Continue levothyroxine 100 mcg daily
#GERD
Continue PPI
#History of bowel ischemia status post subtotal colectomy with ileostomy
DVT prophylaxis�Eliquis
DNR
PT/OT eval appreciated patient in need of short term rehab.
Total time spent to see the patient on the floor, examine the patient, review data and lab results, discuss treatment plan with patient, nursing staff around 50 minutes.
Physical Exam
General: No Apparent Distress
HEENT: NormoCephalic, Anicteric and Moist mucous membranes
Respiratory: Clear and Wheezes
Cardiac: S1/S2 and Regular Rhythm
GI: Soft, Non Tender, Non Distended, Normal Bowel Sounds and Other (Ileostomy with yellow stool noted)
Musculoskeletal: No Clubbing, No Cyanosis and No Edema
Skin: Warm and Dry
Neuro: Awake, Alert and Oriented
Psych: Calm
Anticipated Discharge: 24 - 48 hours
Subjective/Interval History
-
Date of Service: October 06, 2024
No acute distress sitting up comfortably in bed. Right Lower ext pain thigh radiation up to buttocks persists. Notes some improvement.
Objective Data
-
Labs:
Laboratory Results
10/06/24
06:00
Sodium Pending
Potassium Pending
Chloride Pending
Carbon Dioxide Pending
BUN Pending
Creatinine Pending
Glucose Pending
Calcium Pending
Total Bilirubin Pending
AST Pending
ALT Pending
Alkaline Phosphatase Pending
Vital Signs:
Vital Signs
Temp Pulse Resp BP Pulse Ox
98.1 F 84 14 141/83 97
10/05/24 23:15 10/05/24 23:15 10/05/24 23:15 10/05/24 23:15 10/05/24 23:15
I&O
10/04/24 10/05/24 10/06/24
06:59 06:59 06:59
Intake Total 1680 / 1680 1090 / 1090
Output Total 520 / 520 50 / 50
Balance 1160 / 1160 1040 / 1040
[2024-10-06 07:00] VITALS: BP 125/84
[2024-10-06] MEDS: NEURONTIN 300 MG PO (08:12)
[2024-10-06] MEDS: ProAmatine 5 MG PO ×2 (08:12→18:24)
[2024-10-06] MEDS: VITAMIN D3 (cholecalciferol) 125 MCG PO (08:12)
[2024-10-06] MEDS: DELTASONE 40 MG PO (08:13)
[2024-10-06] MEDS: CARDIZEM CD 120 MG PO (08:13)
[2024-10-06] MEDS: THERAGRAN 1 TABLET PO (08:13)
[2024-10-06] MEDS: SODIUM BICARBONATE 1300 MG PO (08:13)
[2024-10-06] MEDS: ELIQUIS 2.5 MG PO ×2 (08:13→19:52)
[2024-10-06] MEDS: PROTONIX 40 MG PO (08:13)
[2024-10-06] MEDS: SENOKOT-S PO ×3 (08:14→20:03)
[2024-10-06 08:29] LABS: ALT (SGPT) 61 U/L (0-35); AST (SGOT) 53 U/L (14-36); Albumin 3.6 g/dl (3.5-5.0); Alkaline Phosphatase 357 U/L (38-126); Blood Urea Nitrogen 34 mg/dl (7-17); Calcium 9.3 mg/dl (8.4-10.2); Carbon Dioxide 27 mmol/L (22-30); Chloride 99 mmol/L (98-107); Estimated Creatinine Clearance 34 ml/min; Glucose 122 mg/dl (70-99); Sodium 134 mmol/L (135-145); Total Bilirubin 0.8 mg/dl (0.2-1.3); Total Protein 6.1 g/dl (6.3-8.2); eGFR 55.21
[2024-10-06 08:58] LABS: Cortisol, Random 6.5 ug/dl; TSH Reflex To Free T4 6.05 uIU/ml (0.47-4.68)
[2024-10-06 09:27] LABS: Free T4 1.38 ng/dl (0.78-2.19)
[2024-10-06] MEDS: TYLENOL 650 MG PO ×2 (10:09→16:20)
[2024-10-06] MEDS: ULTRAM 50 MG PO ×2 (11:56→18:20)
[2024-10-06] MEDS: LIDOCAINE 4% PATCH 2 PATCH TOPICAL (11:57)
--- NOTE | 2024-10-06 14:40 | WOUNDNOTE ---
[facility] RN note: Patient admitted with lumbar back pain with radiculopathy. Patient lives with her . Plan is short term rehab when discharged. She stated there is a plan to reverse her ileostomy on 10/22/24.
See H&P for complete history.
PMH: a fib (Eliquis), bowel ischemia, colectomy with ileostomy, polymyalgia rheumatica on chronic prednisone, R hip arthroplasty, L hip ole arthroplasty.
Wound Location and type/assessment: Patient admitted with: discolored acral scar from previous pressure injury, R sacral/buttocks blanchable red. Scattered bruises mostly on arms/legs. Heels blanchable mild red and intact. Stoma 1cm budded and
pink. Peristomal skin intact. helps patient change her ileostomy appliance changes. She uses [place] wafer # [id number], Mariella seal and either Holden pouch #[id number] or High output Holden pouch #[id number].
Appetite: fair.
Pressure redistribution devices in place: [employer] air bed. She can move self in bed. Pillows to off load heels. Air chair cushion.
Plan: Ileostomy appliance changed using Holden wafer # [id number], Mariella seal and Holden high output pouch # [id number]. Ostomy supplies left in room. Nursing can perform routine appliance changes going forward. Protective silicone border foam applied
to sacrum. Patient turned self to her L side. Heels off bed with pillow. Air chair cushion placed between legs.
Nursing care plan to be updated. Discussed with SENAIT Martínez. Will sign off, call if needed.
[2024-10-06 14:50] VITALS: BP 130/77
[2024-10-06] MEDS: ProAmatine PO (14:55)
--- NOTE | 2024-10-06 15:27 | CM ---
Spoke with daughter-patient obs status
Qualifies for [facility] waiver program
tt [place] [facility] - [facility] not participating facility per liaison
[facility] in [facility].
Called & left message with Ca at [facility]
No beds available at [facility] per Kacy.
PLAN: SNF, pending bed availability
[2024-10-06] MEDS: NEURONTIN 600 MG PO (21:23)
[2024-10-06 23:05] VITALS: BP 140/59
[2024-10-07 03:00] VITALS: BP 124/65
[2024-10-07] MEDS: SYNTHROID 100 MCG PO (05:02)
[2024-10-07] MEDS: LOKELMA 5 GRAM PO (06:29)
[2024-10-07] MEDS: ProAmatine 5 MG PO ×3 (06:29→17:55)
[2024-10-07] MEDS: TYLENOL 650 MG PO (06:35)
[2024-10-07 06:36] LABS: Hematocrit 29.1 % (37.0-47.0); Hemoglobin 9.5 g/dL (12.0-16.0); Mean Corp Hgb Conc. 32.6 g/dL (33.0-37.0); Mean Corpuscular Hgb 29.1 pg (27.0-31.0); Mean Corpuscular Volume 89.3 fL (81.0-99.0); Mean Platelet Volume 11.1 fL (7.4-10.4); Platelet Count 275 10^3/uL (130-400); Red Blood Cell Count 3.26 10^6/uL (4.20-5.40); Red Cell Dist. Width 19.2 % (11.5-14.5); White Blood Cell Count 8.9 10^3/uL (4.8-10.8)
[2024-10-07 06:58] LABS: ALT (SGPT) 63 U/L (0-35); AST (SGOT) 52 U/L (14-36); Albumin 3.2 g/dl (3.5-5.0); Alkaline Phosphatase 353 U/L (38-126); Blood Urea Nitrogen 35 mg/dl (7-17); Calcium 9.2 mg/dl (8.4-10.2); Carbon Dioxide 27 mmol/L (22-30); Chloride 99 mmol/L (98-107); Estimated Creatinine Clearance 34 ml/min; Glucose 97 mg/dl (70-99); Magnesium 1.9 mg/dl (1.6-2.3); Phosphorus 2.7 mg/dl (2.5-4.5); Potassium 4.2 mmol/L (3.5-5.1); Sodium 131 mmol/L (135-145); Total Bilirubin 0.6 mg/dl (0.2-1.3); Total Protein 5.7 g/dl (6.3-8.2); eGFR 55.21
[2024-10-07 07:03] VITALS: BP 156/76
--- NOTE | 2024-10-07 07:11 | W.PN.HOSP.TC ---
Today's Communication/Plan
-
tramadol switched to scheduled TID
oxycodone remains available prn
cont pain control
PT/OT
discharge planning SNF rehab likely tomorrrow if remains stable/cont to improve.
Assessment / Plan
Assessment / Plan
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
prednisone presents with severe worsening right lower buttock/right lateral hip pain. Patient has degenerative disc disease, and experienced severe lower back pain 3 days ago. At that time, she also slid down from the bed to the floor, denies
fall. Today, she presents with severe right-sided hip pain with walking. She is unable to ambulate due to the pain. She denies chest pain, shortness of breath, or palpitations. No fever, no vomiting. No urinary retention, bowel or bladder
incontinence. Seen by PT in the ER, who recommended short-term rehab.
#Right hip/posterior thigh pain
#Chronic lower back pain
CT lumbar spine shows degenerative disc disease, negative for fracture or dislocation
Right hip x-rays negative for acute fracture or dislocation
Suspect right hip and posterior thigh pain is secondary to lumbar radiculopathy from degenerative disc disease and lower back pain
Continue Tylenol 650 mg p.o. 3 times a day as needed for mild pain, tramadol 50 mg p.o. 3 times daily as needed switched to scheduled TID
Treat with prednisone 40 mg daily for 5 days for anti-inflammatory effects. Started on laxatives. Continue home gabapentin
Seen by PT, recommended short-term rehab, CM on board
Lidocaine 2 Patches right thigh/hip
#Acute kidney injury
initial Creatinine 1.4 since improved
CHELSEA resolved
IVF completed, monitor off
#Non-anion gap metabolic acidosis
resolved
bicarb supplementation discontinued, monitor off
#Elevated LFTs
Suspect a recent Tylenol use
Limit Tylenol use less than 2 g a day, trend LFTs
#Mild Hyponatremia
Mild TSH elevation/free T4 wnl
monitor
#Paroxysmal atrial fibrillation
Continue diltiazem 120 mg daily, Eliquis 2.5 mg twice a day
#Polymyalgia rheumatica
Hold home prednisone 3 mg daily while on increased prednisone dose for right hip pain
#Chronic hyperkalemia
Continue home Lokelma 5 g daily
#Hypothyroidism
Continue levothyroxine 100 mcg daily
#GERD
Continue PPI
#History of bowel ischemia status post subtotal colectomy with ileostomy
DVT prophylaxis�Eliquis
DNR
PT/OT eval appreciated patient in need of short term rehab.
Total time spent to see the patient on the floor, examine the patient, review data and lab results, discuss treatment plan with patient, nursing staff around 40 minutes.
Physical Exam
General: No Apparent Distress
HEENT: NormoCephalic, Anicteric and Moist mucous membranes
Respiratory: Clear to auscultation b/l
Cardiac: S1/S2 and Regular Rhythm
GI: Soft, Non Tender, Non Distended, Normal Bowel Sounds, Ileostomy with stool present
Musculoskeletal: No Clubbing, No Cyanosis and No Edema
Skin: Warm and Dry
Neuro: Awake, Alert and Oriented
Psych: Calm
Anticipated Discharge: Within 24 hours
Subjective/Interval History
-
Date of Service: October 07, 2024
Pain appears to be uncontrolled at this time. Though patient did note some improvement with lidocaine patches. Tramadol switched from prn to scheduled for consistent pain control. Oxycodone remains available for prn.
Objective Data
-
Labs:
Laboratory Results
10/07/24
05:34
WBC 8.9
Hgb 9.5 L
Hct 29.1 L
Plt Count 275
Sodium 131 L
Potassium 4.2
Chloride 99
Carbon Dioxide 27
BUN 35 H
Creatinine 1.0
Glucose 97
Calcium 9.2
Total Bilirubin 0.6
AST 52 H
ALT 63 H
Alkaline Phosphatase 353 H
Vital Signs:
Vital Signs
Temp Pulse Resp BP Pulse Ox
98 F 81 16 134/81 96
10/06/24 23:05 10/07/24 06:29 10/06/24 23:05 10/07/24 06:29 10/06/24 23:05
I&O
10/06/24 10/07/24 10/08/24
06:59 06:59 06:59
Intake Total 3190 / 3190 240 / 240
Output Total 600 / 600 325 / 325
Balance 2590 / 2590 -85 / -85
[2024-10-07] MEDS: DELTASONE 40 MG PO (08:47)
[2024-10-07] MEDS: NEURONTIN 300 MG PO (08:47)
[2024-10-07] MEDS: SENOKOT-S PO ×2 (08:47→08:55)
[2024-10-07] MEDS: PROTONIX 40 MG PO (08:47)
[2024-10-07] MEDS: ELIQUIS 2.5 MG PO ×2 (08:47→20:26)
[2024-10-07] MEDS: LIDOCAINE 4% PATCH 2 PATCH TOPICAL (08:48)
[2024-10-07] MEDS: CARDIZEM CD 120 MG PO (08:48)
[2024-10-07] MEDS: VITAMIN D3 (cholecalciferol) 125 MCG PO (08:48)
[2024-10-07] MEDS: THERAGRAN 1 TABLET PO (08:48)
--- NOTE | 2024-10-07 11:13 | CM ---
Addendum entered by Phyllis Fox 10/07/24 14:27:
Pt, and daughter updated
Addendum entered by Phyllis Ruddy 10/07/24 12:58:
Per Dr Wagner - for discharge tomorrow - pain management
Notified Kacy at [facility] - can accept tomorrow after 4PM
Lila at [facility] updated
Called pts daughter to update - LM with call back #
Plan - [facility] tomorrow
R - [phone]
F - [phone]
Addendum entered by Phyllis Ruddy 10/07/24 12:13:
Received message from Lila at [facility] = waiver approved
Kacy at [facility] made aware
Dr Wagner updated
Original Note:
Chart reviewed
Sent referral to [facility] to review - pt aware
[facility] can accept - will need covid
Updated pts daughter and Dr Wagner
Notified Lila at [facility]
Plan - transfer to [facility] when auth approved and medically ready
[2024-10-07] MEDS: ULTRAM 50 MG PO ×3 (11:54→21:39)
[2024-10-07 12:56] LABS: COVID-19 Antigen Negative (Negative)
[2024-10-07 15:30] VITALS: BP 124/65
[2024-10-07 16:02] VITALS: BP 121/64; PULSE 74; O2SAT 97
[2024-10-07 16:04] VITALS: BP 121/64; PULSE 73; O2SAT 97
[2024-10-07] MEDS: SENOKOT-S 2 TABLET PO (20:26)
[2024-10-07] MEDS: NEURONTIN 600 MG PO (21:39)
[2024-10-07 23:21] VITALS: BP 150/86
[2024-10-08] MEDS: SYNTHROID 100 MCG PO (05:24)
[2024-10-08 06:50] LABS: Hematocrit 32.7 % (37.0-47.0); Hemoglobin 10.6 g/dL (12.0-16.0); Mean Corp Hgb Conc. 32.4 g/dL (33.0-37.0); Mean Corpuscular Volume 89.3 fL (81.0-99.0); Mean Platelet Volume 10.5 fL (7.4-10.4); Platelet Count 265 10^3/uL (130-400); Red Blood Cell Count 3.66 10^6/uL (4.20-5.40); Red Cell Dist. Width 18.8 % (11.5-14.5); White Blood Cell Count 8.7 10^3/uL (4.8-10.8)
[2024-10-08 07:10] VITALS: BP 130/68
[2024-10-08 07:20] LABS: ALT (SGPT) 65 U/L (0-35); AST (SGOT) 48 U/L (14-36); Albumin 3.6 g/dl (3.5-5.0); Alkaline Phosphatase 375 U/L (38-126); Blood Urea Nitrogen 36 mg/dl (7-17); Calcium 9.7 mg/dl (8.4-10.2); Carbon Dioxide 32 mmol/L (22-30); Chloride 95 mmol/L (98-107); Estimated Creatinine Clearance 31 ml/min; Glucose 105 mg/dl (70-99); Magnesium 1.8 mg/dl (1.6-2.3); Phosphorus 2.9 mg/dl (2.5-4.5); Potassium 4.3 mmol/L (3.5-5.1); Sodium 132 mmol/L (135-145); Total Bilirubin 0.7 mg/dl (0.2-1.3); Total Protein 6.2 g/dl (6.3-8.2); eGFR 49.24
--- NOTE | 2024-10-08 07:57 | W.PN.HOSP.TC ---
Today's Communication/Plan
-
Discharge
Assessment / Plan
Assessment / Plan
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
prednisone presents with severe worsening right lower buttock/right lateral hip pain. Patient has degenerative disc disease, and experienced severe lower back pain 3 days ago. At that time, she also slid down from the bed to the floor, denies
fall. Today, she presents with severe right-sided hip pain with walking. She is unable to ambulate due to the pain. She denies chest pain, shortness of breath, or palpitations. No fever, no vomiting. No urinary retention, bowel or bladder
incontinence. Seen by PT in the ER, who recommended short-term rehab.
#Right hip/posterior thigh pain
#Chronic lower back pain
CT lumbar spine shows degenerative disc disease, negative for fracture or dislocation
Right hip x-rays negative for acute fracture or dislocation
Suspect right hip and posterior thigh pain is secondary to lumbar radiculopathy from degenerative disc disease and lower back pain
Continue Tylenol 650 mg p.o. 3 times a day as needed for mild pain, tramadol 50 mg p.o. 3 times daily as needed switched to scheduled TID
Treated with prednisone 40 mg daily, completed 5 days for anti-inflammatory effects. Started on laxatives. Continue home gabapentin
Seen by PT, recommended short-term rehab, CM on board
Lidocaine 2 Patches right thigh/hip
#Acute kidney injury
initial Creatinine 1.4 since improved
CHELSEA resolved
IVF completed
#Non-anion gap metabolic acidosis
resolved
bicarb supplementation discontinued
#Elevated LFTs
Suspect a recent Tylenol use
Limit Tylenol use less than 2 g a day, trend LFTs remains mildly elevated but otherwise stable, recommend repeat LFT with primary care provider in 1 week of discharge.
#Mild Hyponatremia
Mild TSH elevation/free T4 wnl
#Paroxysmal atrial fibrillation
Continue diltiazem 120 mg daily, Eliquis 2.5 mg twice a day
#Polymyalgia rheumatica
Resume home prednisone 3 mg daily on discharge, (held while on increased prednisone dose for right hip pain- since completed as above)
#Chronic hyperkalemia
Continue home Lokelma 5 g daily
#Hypothyroidism
Continue levothyroxine 100 mcg daily
#GERD
Continue PPI
#History of bowel ischemia status post subtotal colectomy with ileostomy
DVT prophylaxis�Eliquis
DNR
PT/OT eval appreciated patient in need of short term rehab.
Medically stable for discharge SNF rehab with outpatient follow up recommendations.
Discussed with patient and patient's Corbin
Total Time Preparing Discharge ___40____ minutes including examination of the patient, summary of the hospital stay, instructions for continuing care to all relevant caregivers; and preparation of discharge records, prescriptions, and referral
forms if necessary.
Physical Exam
General: No Apparent Distress
HEENT: NormoCephalic, Anicteric and Moist mucous membranes
Respiratory: Clear to auscultation b/l
Cardiac: S1/S2 and Regular Rhythm
GI: Soft, Non Tender, Non Distended, Normal Bowel Sounds, Ileostomy with stool present
Musculoskeletal: No Clubbing, No Cyanosis and No Edema
Skin: Warm and Dry
Neuro: Awake, Alert and Oriented
Psych: Calm
Anticipated Discharge: Today
Subjective/Interval History
-
Date of Service: October 08, 2024
Seen and examined at bedside in no acute distress resting comfortably in bed. Pain persists but otherwise patient reports pain relatively well controlled with current medications. Denies new acute issues. Eager for discharge to SNF rehab.
Objective Data
-
Labs:
Laboratory Results
10/08/24
05:35
WBC 8.7
Hgb 10.6 L
Hct 32.7 L
Plt Count 265
Sodium 132 L
Potassium 4.3
Chloride 95 L
Carbon Dioxide 32 H
BUN 36 H
Creatinine 1.1 H
Glucose 105 H
Calcium 9.7
Total Bilirubin 0.7
AST 48 H
ALT 65 H
Alkaline Phosphatase 375 H
Vital Signs:
Vital Signs
Temp Pulse Resp BP Pulse Ox
97.5 F 75 18 150/86 96
10/07/24 23:21 10/07/24 23:21 10/07/24 23:21 10/07/24 23:21 10/07/24 23:21
I&O
10/07/24 10/08/24 10/09/24
06:59 06:59 06:59
Intake Total 240 / 240 480 / 480
Output Total 325 / 325 675 / 675
Balance -85 / -85 -195 / -195
[2024-10-08] MEDS: CARDIZEM CD 120 MG PO (08:30)
[2024-10-08] MEDS: VITAMIN D3 (cholecalciferol) 125 MCG PO (08:30)
[2024-10-08] MEDS: ELIQUIS 2.5 MG PO (08:30)
[2024-10-08] MEDS: ULTRAM 50 MG PO ×2 (08:31→17:10)
[2024-10-08] MEDS: PROTONIX 40 MG PO (08:31)
[2024-10-08] MEDS: NEURONTIN 300 MG PO (08:31)
[2024-10-08] MEDS: SENOKOT-S 2 TABLET PO (08:31)
[2024-10-08] MEDS: THERAGRAN 1 TABLET PO (08:31)
[2024-10-08] MEDS: LIDOCAINE 4% PATCH 2 PATCH TOPICAL (08:32)
[2024-10-08] MEDS: ProAmatine 5 MG PO (08:32)
[2024-10-08] MEDS: DELTASONE 40 MG PO (08:32)
[2024-10-08] MEDS: TYLENOL 650 MG PO (08:36)
[2024-10-08] MEDS: ProAmatine PO (12:42)
[2024-10-08] MEDS: ProAmatine 2.5 MG PO ×2 (13:09→17:10)
--- NOTE | 2024-10-08 13:22 | W.DCSUMMARY ---
Discharge Summary
Discharge Data
Date of Admission: 10/04/24
Date of Discharge: 10/08/24
-
Pending Results: No
Discharge Plan
-
Patient Disposition: [facility]
Discharge Diagnosis/Procedures: Right hip/posterior thigh pain
Chronic lower back pain
degenerative disc disease
Suspect right hip and posterior thigh pain secondary to lumbar radiculopathy from degenerative disc disease
Acute kidney injury Resolved
Non-anion gap metabolic acidosis Resolved
Mild Elevations Liver Function Tests unclear etiology
Mild Hyponatremia
Paroxysmal atrial fibrillation
Polymyalgia rheumatica
Chronic hyperkalemia
Hypothyroidism
GERD
History of bowel ischemia status post subtotal colectomy with ileostomy
Condition: Fair
Diet: 2 Gram Sodium
Activity: With assistance, As tolerated and With Walker
Driving Restrictions: No driving
Blood Work: Please repeat CBC and BMP with primary care provider in 1 week of discharge.
Other Services: PT and OT
Activity Restrictions/Additional Instructions:
Ileostomy appliance-change 2 times a week and as needed for leakage. Supplies: Holden wafer # [id number], Mariella seal and use either Holden pouch #[id number] or High output Holden pouch #[id number].
Elevate heels off bed with pillow.
Pressure redistributing chair cushion.
Evaluate for air mattress.
Follow up with colorectal surgeon.
Please follow up with primary care provider in 1 week of discharge.
Lidocaine patches, oxycodone, and tramadol have been prescribed for pain control.
Home Midodrine dose has been reduced to 2.5 mg three times a day (from 5 mg) due to periodic mild hypertension.
Please take medications as prescribed/recommended and follow up with primary care provider and/or other healthcare provider involved in your care for refills and/or further adjustment to your medication regimen as necessary.
Referrals:
David Valdez MD [Family Provider] - in one week
Prescriptions:
New
lidocaine 4 % Adhesive Patch,Medicated
2 patch topical DAILY Qty: 10 0RF
midodrine 2.5 mg tablet
2.5 mg PO TID@0700,1300,1800 Qty: 90 0RF
tramadol 50 mg Tablet
50 mg PO TID Qty: 15 0RF
oxycodone 5 mg Tablet
5 mg PO BIDPRN PRN (Reason: moderate severe pain) Qty: 10 0RF
Continued
cholecalciferol (vitamin D3) 50 mcg (2,000 unit) tablet
125 mcg PO DAILY
Eliquis 2.5 mg Tablet
2.5 mg PO BID Qty: 0 0RF
Lokelma 5 gram powder in packet
5 g PO DAILY Qty: 0 0RF
levothyroxine [Synthroid] 100 mcg Tablet
100 mcg PO DAILY
prednisone 1 mg Tablet
3 mg PO DAILY
gabapentin 300 mg Capsule
300 mg PO DAILY
gabapentin 300 mg Capsule
600 mg PO HS
diltiazem HCl 120 mg Capsule,Extended Release 24hr
120 mg PO DAILY
pantoprazole 40 mg Tablet,Delayed Release (Dr/Ec)
40 mg PO DAILY 30 Days Qty: 30 0RF
multivitamin with folic acid [Tab-A-Taz] 400 mcg Tablet
1 tab PO DAILY 30 Days Qty: 30 0RF
ascorbic acid (vitamin C) [Vitamin C] 500 mg Tablet
500 mg PO DAILY 30 Days Qty: 30 0RF
Changed
acetaminophen 325 mg tablet
650 mg PO TIDPRN PRN (Reason: fever or pain) Qty: 0 0RF
Rx Instructions:
PRN for mild pain for 5 days
Discontinued
midodrine 5 mg tablet
5 mg PO TID@0700,1300,1800
Discharge Orders:
Discharge Patient (As Directed); Ordered 10/08/24
Ordered By: Rachel Wagner
Discharge Date and Time
Print Language: TUNISIAN
--- NOTE | 2024-10-08 13:37 | CM ---
Addendum entered by Phyllis Fox 10/08/24 13:40:
Pts daughter notified of discharge/transport time
Original Note:
Pt for discharge to SNF today
Transport at 6PM
Kacy at [facility] aware of transport
Plan - [facility]
R - [phone]
F - [phone]
[2024-10-08] MEDS: ROXICODONE 5 MG PO (13:56)
[2024-10-08 15:28] VITALS: BP 136/72
== END 2024-10-08 18:30 ==
LOC: 2 SOUTH 15:38
PROVIDERS: Physician Assistant; ADMITTING PHYSICIAN Family Medicine; ATTENDING PHYSICIAN Internal Medicine; EMERGENCY PHYSICIAN Emergency Medicine; FAMILY PHYSICIAN Family Medicine
DX: M54.50 Low back pain, unspecified (principal); M25.551 Pain in right hip; M79.651 Pain in right thigh; G89.29 Other chronic pain; N17.9 Acute kidney failure, unspecified; E87.1 Hypo-osmolality and hyponatremia; I48.0 Paroxysmal atrial fibrillation; I10 Essential (primary) hypertension; E87.20 Acidosis, unspecified; E03.9 Hypothyroidism, unspecified; R26.2 Difficulty in walking, not elsewhere classified; R79.89 Other specified abnormal findings of blood chemistry; M54.16 Radiculopathy, lumbar region; K21.9 Gastro-esophageal reflux disease without esophagitis; M47.816 Spondylosis without myelopathy or radiculopathy, lumbar region; E78.5 Hyperlipidemia, unspecified; M35.3 Polymyalgia rheumatica; E87.5 Hyperkalemia; M48.061 Spinal stenosis, lumbar region without neurogenic claudication; F41.9 Anxiety disorder, unspecified; E88.09 Other disorders of plasma-protein metabolism, not elsewhere classified; K44.9 Diaphragmatic hernia without obstruction or gangrene; M43.16 Spondylolisthesis, lumbar region; M81.0 Age-related osteoporosis without current pathological fracture; M46.1 Sacroiliitis, not elsewhere classified; M51.362 Other intervertebral disc degeneration, lumbar region with discogenic back pain and lower extremity pain; M47.817 Spondylosis without myelopathy or radiculopathy, lumbosacral region; W01.0XXA Fall on same level from slipping, tripping and stumbling without subsequent striking against object, initial encounter; Y93.9 Activity, unspecified; Y92.009 Unspecified place in unspecified non-institutional (private) residence as the place of occurrence of the external cause; Z66 Do not resuscitate; Z87.891 Personal history of nicotine dependence; Z11.52 Encounter for screening for COVID-19; Z90.49 Acquired absence of other specified parts of digestive tract; Z86.73 Personal history of transient ischemic attack (TIA), and cerebral infarction without residual deficits; Z79.890 Hormone replacement therapy; Z79.52 Long term (current) use of systemic steroids; Z79.01 Long term (current) use of anticoagulants; Z96.643 Presence of artificial hip joint, bilateral; Z88.1 Allergy status to other antibiotic agents; Z88.5 Allergy status to narcotic agent; Z88.2 Allergy status to sulfonamides; Z88.8 Allergy status to other drugs, medicaments and biological substances
CPT/HCPCS: 72131; 73502; 80053; 82533; 83735; 84100; 84439; 84443; 85027; 87811; 96360; 97116; 97166; 97530; 97535; 99285; G0378; J7030

== ENCOUNTER 2024-11-12 06:05 | Inpatient (IN) | payer MEDICARE, BC, SELFPAY ==
[2024-11-05 11:22] LABS: Hematocrit 33.2 % (37.0-47.0); Mean Corp Hgb Conc. 30.1 g/dL (33.0-37.0); Mean Corpuscular Hgb 29.9 pg (27.0-31.0); Mean Corpuscular Volume 99.1 fL (81.0-99.0); Mean Platelet Volume 10.9 fL (7.4-10.4); Platelet Count 290 10^3/uL (130-400); Red Blood Cell Count 3.35 10^6/uL (4.20-5.40); Red Cell Dist. Width 19.1 % (11.5-14.5); White Blood Cell Count 8.6 10^3/uL (4.8-10.8)
[2024-11-05 11:29] LABS: INR 1.01; PT 13.8 Sec (11.4-14.6)
[2024-11-05 11:30] LABS: APTT 27.7 Sec (23.4-35.0)
[2024-11-05 12:31] LABS: Glycohemoglobin (HgbA1c) 4.9 % (4.0-5.6)
[2024-11-05 13:46] VITALS: BMI 20.3
[2024-11-05 15:19] LABS: ALT (SGPT) 105 U/L (0-35); AST (SGOT) 57 U/L (14-36); Alkaline Phosphatase 548 U/L (38-126); Blood Urea Nitrogen 41 mg/dl (7-17); Calcium 9.9 mg/dl (8.4-10.2); Carbon Dioxide 15 mmol/L (22-30); Estimated Creatinine Clearance 27 ml/min; Glucose 92 mg/dl (70-99); Total Bilirubin 0.9 mg/dl (0.2-1.3); Total Protein 6.3 g/dl (6.3-8.2); eGFR 44.36
[2024-11-05 15:45] LABS: Chloride 109 mmol/L (98-107); Potassium 4.2 mmol/L (3.5-5.1); Sodium 138 mmol/L (135-145)
[2024-11-12] VITALS (32 sets, daily range): BP systolic 67–174; BP diastolic 37–101; BMI 20.3; BMI 20.5
[2024-11-12] MEDS: ENTEREG 12 MG PO (06:39)
[2024-11-12] MEDS: EMEND 40 MG PO (06:39)
[2024-11-12] MEDS: NORMOSOL-R/PLASMALYTE-A 1000 IV (06:39)
[2024-11-12] MEDS: TYLENOL 1000 MG PO (07:05)
--- NOTE | 2024-11-12 14:34 | W.IMMPOSTOP ---
Surgical Immed Post Op Note
-
Primary Surgeon: John López MD
Assistants: XAVIER Segal and Galilea Hayward PA-C
Pre-op Diagnosis: Ileostomy s/p total colectomy for acute ischemia 12/22
Post-op Diagnosis: Same
Procedure Performed: Robotic ileostomy takedown with ileo-rectosigmoid intracorporeal anastomosis, small bowel resection x1
Anesthesia Type: GET
Specimen / Cultures: Rectosigmoid
Estimated Blood Loss: 100cc
Complications: Chest wall blister
Operative Findings: Multiple dense adhesions
5cm area of small bowel densely adherent to the rectosigmoid staple line (resected and primary anastomosis)
25mm EEA
Normal leak test
Large anterior chest wall blister extending to the neck
Patient's updated.
[2024-11-12] MEDS: PRECEDEX 100 IV (15:30)
[2024-11-12] MEDS: DILAUDID 0.25 MG IV ×3 (15:36→17:08)
--- NOTE | 2024-11-12 15:53 | CON.INTV ---
Consultation
Consultation Request
Date/Time Consultation Requested: 11/12/2024-4 PM
Date/Time Consultation Performed: 11/12/2024-4:30 PM
Requesting Provider: Hospitalist
Performing Provider: Dr. Clay
Reason for Consultation: Postoperative ventilator and critical care management
Medical History
-
Chief Complaint: Ileostomy status post total colectomy
History of Present Illness:
84-year-old former smoking female with a history of hyperlipidemia, hypertension, atrial fibrillation, polymyalgia rheumatica, CVA, hypothyroid who had a history of ileostomy status post colectomy for acute ischemia November 2023 and now underwent
robotic ileostomy takedown with ileal rectosigmoid intracorporeal anastomosis and small bowel resection with significant subcutaneous air left intubated-hand polisher consulted for postoperative ventilator/critical care management 11/12/2024. Patient
is sedated on a ventilator and review of systems was unobtainable. Operative records were reviewed.
Past Medical History
Past Medical History: None (Hypertension. Hyperlipidemia. Atrial fibrillation. Spinal stenosis. Hypothyroid. CVA 03/2024. Mesenteric ischemia. PMR. GERD. Cardiac ablation 2018. Right hip replacement 2020. 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
Left hip fracture/arthroplasty 2023.)
Social History
Tobacco: Former Smoker (Quit over 15 years ago)
Alcohol: None
Drug: None
Personal:
Living: With Family
Occupational Exposures: No known asbestos exposure
Environmental Exposures: No known tuberculosis exposure
Family History
Family History: Other (Father-sudden /CAD. Maternal grandfather-diabetes. Maternal grandmother-breast cancer. Mother-COPD)
Allergies / Home Medications
Allergies
Allergy/AdvReac Type Severity Reaction Status Date / Time
amlodipine Allergy Nausea Verified 11/12/24 06:19
codeine Allergy Nausea / Verified 11/12/24 06:19
Vomiting
doxycycline Allergy Hives Verified 11/12/24 06:19
hydrocodone [From Vicodin] Allergy Vomiting Verified 11/12/24 06:19
metoprolol [From Lopressor] Allergy Dizzy Verified 11/12/24 06:19
sulfamethoxazole Allergy Rash Verified 11/12/24 06:19
[From Bactrim]
trimethoprim [From Bactrim] Allergy Rash Verified 11/12/24 06:19
Home Medications
�Medication �Instructions �Recorded �Confirmed �Last Taken �Type
pantoprazole 40 mg tablet,delayed 40 mg PO DAILY GERD 30 days #30 05/27/24 11/12/24 11/11/24 08:00 Rx
release tabs
sodium zirconium cyclosilicate 5 5 g PO DAILY hyperkalemia #0 ea 06/13/24 11/12/24 11/11/24 08:00 Rx
gram oral powder packet (Lokelma)
ascorbic acid (vitamin C) 500 mg 500 mg PO DAILY Supplement 30 days 06/20/24 11/12/24 11/11/24 08:00 Rx
tablet (Vitamin C) #30 tabs
diltiazem HCl 120 mg capsule,24 120 mg PO DAILY Afib 10/04/24 11/12/24 11/11/24 08:00 History
hr,extended release
gabapentin 300 mg capsule 300 mg PO TID neuropathic pain 10/04/24 11/12/24 11/11/24 21:16 History
levothyroxine 100 mcg tablet 100 mcg PO DAILY Thyroid 10/04/24 11/12/24 11/11/24 08:00 History
(Synthroid)
prednisone 1 mg tablet 3 mg PO DAILY Anti-Inflammatory 10/04/24 11/12/24 11/11/24 08:00 History
acetaminophen 500 mg tablet 1,000 mg PO TID 11/04/24 11/12/24 11/11/24 21:16 History
acetic acid 1 dose topical DAILY 3% 11/04/24 11/04/24 Unknown History
solution,arm skin tear
apixaban 2.5 mg tablet 2.5 mg PO BID 11/04/24 11/12/24 11/10/24 08:00 History
bisacodyl 10 mg rectal suppository 10 mg NC DAILY PRN if no BM 8h 11/04/24 11/04/24 Unknown History
(Dulcolax (bisacodyl)) after MOM
cholecalciferol (vitamin D3) 50 50 mcg PO DAILY 11/04/24 11/12/24 11/11/24 08:00 History
mcg (2,000 unit) capsule (Vitamin
D3)
magnesium hydroxide 400 mg/5 mL 30 ml PO DAILY PRN if no BM x 2 11/04/24 11/04/24 Unknown History
oral suspension (Milk of Magnesia) days
midodrine 2.5 mg tablet 2.5 mg PO TID HOLD SBP >120 11/04/24 11/12/24 11/10/24 History
sodium phosphates 19 gram-7 197 ml NC PRN PRN no BM 8h after 11/04/24 11/04/24 Unknown History
gram/118 mL enema (Fleet Enema) suppository
zinc oxide 20 % topical ointment 1 applic topical TID sacrum 11/04/24 11/12/24 11/11/24 History
enoxaparin 40 mg/0.4 mL 40 mg SC DAILY 11/12/24 11/12/24 11/11/24 08:00 History
subcutaneous syringe (Lovenox)
metronidazole 500 mg tablet 500 mg PO Q8H 11/12/24 11/12/24 11/11/24 22:00 History
neomycin 500 mg tablet 1 g PO TID 11/12/24 11/12/24 11/11/24 22:00 History
Review of Systems
-
Unable to Obtain full review of systems at this time due to: Patient Intubation
Vitals / Labs / Diagnostic Testing
Vital Signs
Temp Pulse Resp BP Pulse Ox
95.4 F L 76 14 122/64 100
11/12/24 15:15 11/12/24 15:45 11/12/24 15:45 11/12/24 15:45 11/12/24 15:45
Diagnostic Testing:
Physical Exam
-
Exam:
Well-nourished and well-developed in no apparent distress
HEENT-atraumatic, normocephalic, endotracheal tube
Neck-supple, no JVD, no bruit
Heart-regular rate and rhythm-no murmurs, rubs or gallops
Chest-clear to auscultation, no wheezes, crackles, subcutaneous air noted throughout anterior chest and even down the arms and abdomen
Back-no tenderness
Abdomen-soft, nontender, nondistended, no hepatosplenomegaly
Extremities-no cyanosis, clubbing, edema and good peripheral pulses
Integument-intact, no rashes, lesions or ecchymosis
Neurologically not alert, not oriented intubated, moving all extremities
Assessment
-
84-year-old former smoking female with a history of hyperlipidemia, hypertension, atrial fibrillation, polymyalgia rheumatica, CVA, hypothyroid who had a history of ileostomy status post colectomy for acute ischemia November 2023 and now underwent
robotic ileostomy takedown with ileal rectosigmoid intracorporeal anastomosis and small bowel resection with significant subcutaneous air left intubated-hand polisher consulted for postoperative ventilator/critical care management 11/12/2024.
Status post colectomy/ileostomy for acute ischemia November 2023
Status post robotic ileostomy takedown with ileal rectosigmoid intracorporeal anastomosis, small bowel resection-Dr. López 11/12/2024
Anemia-normocytic
Significant subcutaneous emphysema-no history of pulmonary/ventilator issues, most likely CO2 abdominal expansion related
Conditions present prior to admission:
Recent hospitalization 10/08/2024-severe lower back pain, none anion gap metabolic acidosis, mild hyponatremia,
Hypertension.
Hyperlipidemia.
Atrial fibrillation.
Spinal stenosis.
Hypothyroid.
CVA 03/2024.
Mesenteric ischemia.
PMR.
GERD.
Cardiac ablation 2018.
Right hip replacement 2020. 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 Left hip fracture/arthroplasty 2023.
Plan
Patient will be transferred to surgical intensive care unit postoperatively and will continue with mechanical ventilation
Ventilator settings reviewed
Airway pressures will be monitored
Chest x-ray will be followed
ABGs will be obtained and ventilator will be adjusted accordingly
Spontaneous breathing trial once stable from a surgical perspective
VAP prevention protocol
Nebulizers if needed-currently not bronchospastic
Monitor subcutaneous air
Operative records reviewed
Surgery following closely-correspondence reviewed
Empiric antibiotics
Intravenous fluids
Pressors if needed
Follow hemoglobin
Transfuse if needed
DVT prophylaxis recommended
GI prophylaxis-on pantoprazole
Early nutrition per surgery
Early mobilization
Critical care statement: A total of 55 minutes of critical care time was provided for this patient today. This includes management of unstable vital signs, evaluation of the patient at bedside, reviewing the patient's pertinent medical records
including radiographs, ventilator management, pressor management, microbiology, laboratory evaluations, and discussion with primary team, consultants, pharmacy, nutrition, physical therapy, case management, charge nurse, critical care nursing, and
respiratory therapy.
Diagnostic data:
Chest x-ray 05/10/2024-NAD
Chest x-ray 11/12/2024-tip of endotracheal tube 3.5 cm above jaylen, new extensive subcutaneous emphysema
Echocardiogram/10/24-EF 65-70%, trace mitral regurgitation, PA systolic 30-35
Data Reviewed
-
EKG: Report reviewed by me
Radiology: Report reviewed by me
Medical Tests (Nuc Med, Echo etc): Report reviewed by me
Labs: Labs reviewed by me
Critical Care Time (in minutes): 55
[2024-11-12] MEDS: NEO-SYNEPHRINE 250 IV (16:08)
--- NOTE | 2024-11-12 16:26 | CON.HOSP ---
Addendum entered and electronically signed by Geraldo Tamez MD 11/12/24 22:34:
Attending Addendum-
I performed a history and physical exam of the patient and discussed his management with the resident. I reviewed the resident's note and agree with the documented findings and plan of care CC/HPI-Patient seen post OP at the request of CTS. Found to
have extensive SC emphysema post OP requiring continued intubation and CC support. Patient is intubated and sedated. H/O from nursing CTS and records. Full 12 point ROS unable to be obtained Exam- vitals reviewed in EMR GEN-intubated sedated
appears comfortable Heart RRR chest- extensive crepitus palpated superior thorax redness and thin layer of skin encompassing air . HEENT-intubated, NG tube in place lungs clear abd soft pos BS incision bandaged LE no edema Gu barros in place
draining clear yellow urine
Plan:
# Acute bowel ischemia
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
- s/p Robotic ileostomy takedown with ileo-rectosigmoid intracorporeal anastomosis, small bowel resection-POD#0
- care per primary
- cont entereg, ertapenem, pain control, IVF
# Subcutaneous Emphysema
-transfer to ICU
-cont MV for now
-check CXR- 1).The tip of the endotracheal tube is in satisfactory position 3.5 cm above the jaylen
2). The tip of the nasogastric tube is in the distal esophagus. It is not in the stomach
3).There is new extensive subcutaneous emphysema throughout both hemithoraces limiting optimal evaluation of the underlying lungs which otherwise appear clear
- advance NG tube
- cont o2 and monitor for resolution
# Leukocytosis
- stress rxn
- repeat CBC in am
# Paroxysmal Atrial Fibrillation
- hold Eliquis
- cont diltiazem
# PMR
- chronically on prednisone 3mg daily
- t/c stress dose steroids
# Chronic Hyperkalemia
- check BMP stat
- hold Lokelma
- treat as needed
# GERD
- cont pantoprazole
# Hypothyroidism
- cont levothyroxine
# CKD 3a
- baseline cr @ 1.1
- avoid NT agents
- check BMP in am
# H/O Transaminitis
- repeat CMP in am
CODE- Full will need to readdress
DVTp-SCDs for now would start Lovenox when ok with primary
CC Note
Due to a high probability of clinically significant, life-threatening deterioration, the patient required a high level of preparedness to intervene emergently. I personally spent this critical care time directly and personally managing the patient.
This critical care time included obtaining a history; examining the patient; ordering and review of studies and STAT labs; arranging urgent treatment with development of a management plan; evaluation of patient's response to treatment; reassessment;
and, discussions with other providers.
This critical care time was performed to assess and manage the high probability of imminent, life-threatening deterioration that could result in multi-organ failure. It was exclusive of separately billable procedures and treating other patients and
teaching time.
Total critical care time: Approximately 40 minutes
Original Note:
Consultation
-
Date/Time Consultation Requested: 11/12/2024
Date/Time Consultation Performed: 11/12/2024
Reason for Consultation: Post-op management
Family Physician
-
Family Physician: David Valdez
Chief Complaint
-
Postop management
History of Present Illness
84-year-old female with a past medical history of atrial fibrillation on Eliquis, bowel ischemia status post colectomy with ileostom in 12/22, stroke, hypertension, hyperlipidemia, hypothyroidism, hyperkalemia, and polymyalgia rheumatica on chronic
prednisone underwent a 6 hour reported closure of her ileostomy today. She developed a large blister at upper anterior chest during the procedure and was kept intubated after the procedure.
She developed mild hypothermia in the PACU and vomiting blankets were applied. Other vitals stayed stable. She also received IV Dilaudid(PACU dose) for pain.
History has been obtained from records review and PACU nurse.
Medical History
Past Medical History
Past Medical History: Reports HTN
Additional Past Medical History:
Bowel ischemia status post colectomy with ileostomy, CVA, Paroxysmal atrial fibrillation/flutter on Eliquis, Hyperlipidemia, Hypothyroidism
Hyponatremia, Hyperkalemia, Polymyalgia rheumatica, Anemia
Lumbar spinal stenosis,Sciatica, trigeminal neuralgia, Anxiety, Hypoalbuminemia, Hiatal hernia, Left hip fracture status post surgery
Additional Past Surgical History:
Appendectomy
Total colectomy and diverting ileostomy
Right hip arthroplasty
Left hip hemiarthroplasty
Cataract surgery
Social History
Tobacco: Former Smoker
Alcohol: None
Drug: None
Living: With Family
Family History
Family History: Reviewed & Not Pertinent
Allergies / Home Medications
Allergies reflects when Allergies were last updated in [employer].
Home Medications with original date entered in [employer]
Allergy/Medication List:
Allergies
Allergy/AdvReac Type Severity Reaction Status Date / Time
amlodipine Allergy Nausea Verified 11/12/24 06:19
codeine Allergy Nausea / Verified 11/12/24 06:19
Vomiting
doxycycline Allergy Hives Verified 11/12/24 06:19
hydrocodone [From Vicodin] Allergy Vomiting Verified 11/12/24 06:19
metoprolol [From Lopressor] Allergy Dizzy Verified 11/12/24 06:19
sulfamethoxazole Allergy Rash Verified 11/12/24 06:19
[From Bactrim]
trimethoprim [From Bactrim] Allergy Rash Verified 11/12/24 06:19
Home Medications
pantoprazole 40 mg tablet,delayed release 40 mg PO DAILY GERD 30 days #30 tabs 05/27/24
sodium zirconium cyclosilicate 5 gram oral powder packet (Lokelma) 5 g PO DAILY hyperkalemia #0 ea 06/13/24
ascorbic acid (vitamin C) 500 mg tablet (Vitamin C) 500 mg PO DAILY Supplement 30 days #30 tabs 06/20/24
diltiazem HCl 120 mg capsule,24 hr,extended release 120 mg PO DAILY Afib 10/04/24
gabapentin 300 mg capsule 300 mg PO TID neuropathic pain 10/04/24
levothyroxine 100 mcg tablet (Synthroid) 100 mcg PO DAILY Thyroid 10/04/24
prednisone 1 mg tablet 3 mg PO DAILY Anti-Inflammatory 10/04/24
acetaminophen 500 mg tablet 1,000 mg PO TID 11/04/24
acetic acid 1 dose topical DAILY 3% solution,arm skin tear 11/04/24
apixaban 2.5 mg tablet 2.5 mg PO BID 11/04/24
bisacodyl 10 mg rectal suppository (Dulcolax (bisacodyl)) 10 mg WV DAILY PRN if no BM 8h after MOM 11/04/24
cholecalciferol (vitamin D3) 50 mcg (2,000 unit) capsule (Vitamin D3) 50 mcg PO DAILY 11/04/24
magnesium hydroxide 400 mg/5 mL oral suspension (Milk of Magnesia) 30 ml PO DAILY PRN if no BM x 2 days 11/04/24
midodrine 2.5 mg tablet 2.5 mg PO TID HOLD SBP >120 11/04/24
sodium phosphates 19 gram-7 gram/118 mL enema (Fleet Enema) 197 ml WV PRN PRN no BM 8h after suppository 11/04/24
zinc oxide 20 % topical ointment 1 applic topical TID sacrum 11/04/24
enoxaparin 40 mg/0.4 mL subcutaneous syringe (Lovenox) 40 mg SC DAILY 11/12/24
metronidazole 500 mg tablet 500 mg PO Q8H 11/12/24
neomycin 500 mg tablet 1 g PO TID 11/12/24
If medication reconciliation has not been performed, why?: Unresponsive
Review of Systems
-
Unable to obtain full review of systems at this time due to: Patient Intubation
Physical Exam
Vital Signs
Vital Signs
Temp Pulse Resp BP Pulse Ox
95.6 F L 71 16 107/72 100
11/12/24 15:30 11/12/24 16:15 11/12/24 16:15 11/12/24 16:12 11/12/24 16:15
Physical Exam
General: Intubated and Other (Endotracheal tube and nasogastric tube in place)
Cardiac: S1/S2, Regular Rhythm and Carotid Pulses
GI: Soft and Non Distended
Genito-urinary: Barros Catheter
Skin: Other (subcutaneous emphysema: anterior upper chest with erythema; fluctuant; mild crepitus)
Laboratory Results
-
PT 13.8 Sec (11.4-14.6) 11/05/24 09:29
INR 1.01 11/05/24 09:29
APTT 27.7 Sec (23.4-35.0) 11/05/24 09:29
Total Bilirubin 0.9 mg/dl (0.2-1.3) 11/05/24 09:29
AST 57 U/L (14-36) H 11/05/24 09:29
ALT 105 U/L (0-35) H 11/05/24 09:29
Alkaline Phosphatase 548 U/L (38-126) H 11/05/24 09:29
Data Reviewed
-
Diagnostic Radiology: Image personally visualized and interpreted and Report Reviewed by Me
Impression / Plan
-
84-year-old female with a past medical history of atrial fibrillation on Eliquis, bowel ischemia status post colectomy with ileostom in 12/22, stroke, hypertension, hyperlipidemia, hypothyroidism, hyperkalemia, and polymyalgia rheumatica on chronic
prednisone underwent a 6 hour reported closure of her ileostomy today. She developed subcutaneous emphysema around lower neck and anterior upper chest.
# Bowel ischemia status post ileostomy reversal
# Subcutaneous emphysema
-- Currently intubated; waiting to be admitted to the ICU
-- Emphysema improving; still some erythema around
-- IV fluids and ABX per colorectal
-- NG in place ; n.p.o. for now
--IV Dilaudid every 4 as needed for pain
# Paroxysmal atrial fibrillation
-- Hold Eliquis 2.5 mg twice daily for at least 48 hours post procedure
-- Continue diltiazem
# Hypothyroidism
-- Levothyroxine 100 mcg p.o. daily
# GERD
--Pantoprazole 40 mg IV daily
# Chronic hyperkalemia
--Will monitor BMP; hold Lokelma for now
# Polymyalgia rheumatica
-- Hold prednisone for now; uses 3 mg prednisone p.o. daily at home
# Neuropathic pain
--Gabapentin 300 mg home regimen
DVT prophylaxis:DUARTE, SCD
Full code
[2024-11-12 16:59] LABS: Hematocrit 27.3 % (37.0-47.0); Hemoglobin 8.5 g/dL (12.0-16.0); Mean Corp Hgb Conc. 31.1 g/dL (33.0-37.0); Mean Corpuscular Hgb 30.7 pg (27.0-31.0); Mean Corpuscular Volume 98.6 fL (81.0-99.0); Mean Platelet Volume 10.3 fL (7.4-10.4); Platelet Count 365 10^3/uL (130-400); Red Blood Cell Count 2.77 10^6/uL (4.20-5.40); Red Cell Dist. Width 17.7 % (11.5-14.5); White Blood Cell Count 12.2 10^3/uL (4.8-10.8)
[2024-11-12] MEDS: NSS 1000 IV (17:11)
[2024-11-12] MEDS: NEO-SYNEPHRINE IV (17:17)
[2024-11-12] MEDS: TYLENOL PO ×4 (17:34→23:10)
--- NOTE | 2024-11-12 19:20 | W.PN.UPDATE ---
Update Note
Progress Note Update
1900- Spoke with family at the bedside, would like patient's code status updated to limited DNR- no cpr, no shock, no acls medications; patient is currently intubated.
[2024-11-12] MEDS: SUBLIMAZE 50 MCG IV ×2 (21:24→23:22)
--- NOTE | 2024-11-12 22:06 | PTCARENOTE ---
Assumed care of pt at 1900. Received pt intubated, #7.0 ETT 22cm at lip, vent settings AC 14/450/40/5. Received pt on Precedex at 0.8mcg/kg/min and NS at 100ml/hr. 16Fr Robeline Sump NGT to right nare to continuous suction at 80mmHg with
brown/red-tinged drainage. Marleni hugger in place, was able to remove at approx 2100 when temp was >97 deg F. Pt with very thin, fragile, paper-like skin with multiple ecchymotic areas throughout. Large dark red/purple ecchymotic area on chest with an
area that is either air or fluid-filled (? blister) and ecchymosis extending to upper back as well. Xeroform gauze placed over chest/neck area as a barrier. Pt with crepitus throughout entire body (able to feel crepitus even at pt's ankles.) See
nursing shift assessment flowsheet for full physical assessment details. Several family members were at bedside at start of shift, Dr. López updated them in person at bedside at around 1999. They have since left for the evening.
[2024-11-12 22:11] LABS: Blood Urea Nitrogen 33 mg/dl (7-17); Calcium 7.7 mg/dl (8.4-10.2); Carbon Dioxide 16 mmol/L (22-30); Chloride 109 mmol/L (98-107); Estimated Creatinine Clearance 36 ml/min; Glucose 129 mg/dl (70-99); Potassium 4.3 mmol/L (3.5-5.1); Sodium 133 mmol/L (135-145); eGFR > 60.00
[2024-11-12] MEDS: SYNTHROID PO (23:10)
[2024-11-12] MEDS: SUBLIMAZE 100 IV (23:44)
[2024-11-13] VITALS (29 sets, daily range): BP systolic 72–142; BP diastolic 42–96; BMI 21.1
--- NOTE | 2024-11-13 00:38 | PTCARENOTE ---
Midnight assessment mostly unchanged. Crepitus still present but no longer felt in BLE. Minimal drainage from NGT. Abd dressing with more sanguinous drainage but it has remained within the confines of the dressing. Remains on same vent settings,
SpO2 100%. SR 60s on monitor with 1st deg AVB. Fentanyl drip started for pain (received bolus doses x2, see EMAR). Remains on Precedex, now at 0.6mcg/kg/min. Pt easily awakens, able to follow commands, nods head appropriately.
[2024-11-13] MEDS: NSS 1000 IV ×3 (01:24→20:10)
[2024-11-13 04:06] LABS: B.E. -7.5 mmol/L; O2 Saturation % 99.9 % (94-98); PCO2 22 mmHg (32-35); PO2 198 mmHg (83-108); pH 7.45 (7.35-7.45)
[2024-11-13 04:12] LABS: HCO3 15.3 mmol/L (21-28)
[2024-11-13 04:51] LABS: Hematocrit 24.1 % (37.0-47.0); Hemoglobin 7.9 g/dL (12.0-16.0); Mean Corp Hgb Conc. 32.8 g/dL (33.0-37.0); Mean Corpuscular Hgb 30.3 pg (27.0-31.0); Mean Corpuscular Volume 92.3 fL (81.0-99.0); Mean Platelet Volume 10.1 fL (7.4-10.4); Platelet Count 317 10^3/uL (130-400); Red Blood Cell Count 2.61 10^6/uL (4.20-5.40); Red Cell Dist. Width 17.7 % (11.5-14.5); White Blood Cell Count 8.9 10^3/uL (4.8-10.8)
[2024-11-13] MEDS: SUBLIMAZE 50 MCG IV ×2 (04:51→10:34)
[2024-11-13 04:59] LABS: INR 0.89; PT 12.6 Sec (11.4-14.6)
[2024-11-13 05:00] LABS: APTT 27.2 Sec (23.4-35.0)
[2024-11-13 05:03] LABS: ALT (SGPT) 45 U/L (0-35); AST (SGOT) 37 U/L (14-36); Albumin 2.6 g/dl (3.5-5.0); Alkaline Phosphatase 299 U/L (38-126); Blood Urea Nitrogen 34 mg/dl (7-17); Calcium 8.1 mg/dl (8.4-10.2); Carbon Dioxide 15 mmol/L (22-30); Chloride 110 mmol/L (98-107); Estimated Creatinine Clearance 36 ml/min; Glucose 114 mg/dl (70-99); Magnesium 2.1 mg/dl (1.6-2.3); Phosphorus 4.3 mg/dl (2.5-4.5); Potassium 4.3 mmol/L (3.5-5.1); Sodium 135 mmol/L (135-145); Total Protein 4.7 g/dl (6.3-8.2); eGFR > 60.00
--- NOTE | 2024-11-13 05:14 | PTCARENOTE ---
Assessment unchanged. Pt visibly in more pain, Fentanyl bolus given and drip increased, see EMAR/med titration flowsheet. Remains on Precedex at 0.6mcg/kg/min. CHG cloth bath done and linens changed. SR 60s on monitor, SpO2 100% on same vent
settings. ETT still at 22cm on right side, did not move tube as it is not in a tube love where it can easily be repositioned, just taped to her face--discussed with respiratory therapist, since pt has had so much skin breakdown/skin tears and she
is possibly being extubated today, did not want to risk unnecessarily causing more harm by untaping/re-taping at this time. Pt back on eddie hugger at approx 0200 when temp went down to 96.3, remains on eddie hugger at this time.
--- NOTE | 2024-11-13 07:30 | W.PN.INTV ---
Today's Communication / Plan
Recommendations
CT neck and chest-no obvious tracheal ring interruption
Monitor subcutaneous emphysema
Spontaneous breathing trial with gentle sedation
Hope to extubate
Nasogastric tube per surgery
Antibiotics
Assessment
-
84-year-old former smoking female with a history of hyperlipidemia, hypertension, atrial fibrillation, polymyalgia rheumatica, CVA, hypothyroid who had a history of ileostomy status post colectomy for acute ischemia November 2023 and now underwent
robotic ileostomy takedown with ileal rectosigmoid intracorporeal anastomosis and small bowel resection with significant subcutaneous air left intubated-reporting consultant consulted for postoperative ventilator/critical care management 11/12/2024.
Status post colectomy/ileostomy for acute ischemia November 2023
Status post robotic ileostomy takedown with ileal rectosigmoid intracorporeal anastomosis, small bowel resection-Dr. López 11/12/2024
Anemia-normocytic
Significant subcutaneous emphysema-no history of pulmonary/ventilator issues, most likely CO2 abdominal expansion related
Conditions present prior to admission:
Recent hospitalization 10/08/2024-severe lower back pain, none anion gap metabolic acidosis, mild hyponatremia,
Hypertension.
Hyperlipidemia.
Atrial fibrillation.
Spinal stenosis.
Hypothyroid.
CVA 03/2024.
Mesenteric ischemia.
PMR.
GERD.
Cardiac ablation 2018.
Right hip replacement 2020. 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 Left hip fracture/arthroplasty 2023.
Plan
Patient remains critically ill on a ventilator
Ventilator settings reviewed
Airway pressures will be monitored
Chest x-ray 11/13/2024-extensive subcutaneous emphysema, no pneumothorax
CT chest and neck-Dr. Clay reviewed with radiology 11/13/2024-significant subcutaneous air, no tracheal ring interruption, some free air
Try spontaneous breathing trial with gentle sedation-anxious when first tried-reviewed with nursing and respiratory therapy
VAP prevention protocol
Nebulizers if needed-currently not bronchospastic
Monitor subcutaneous air-overall stable not increasing
Operative records reviewed
Surgery following closely-correspondence reviewed
Empiric antibiotics continue
Intravenous fluids-decrease
Pressors if needed
Follow hemoglobin
Transfuse if needed
DVT prophylaxis recommended
GI prophylaxis-on pantoprazole
Early nutrition per surgery
Early mobilization
Reviewed with Dr. López on multidisciplinary rounds
Reviewed with jung on multidisciplinary rounds
Critical care statement: A total of 45 minutes of critical care time was provided for this patient today. This includes management of unstable vital signs, evaluation of the patient at bedside, reviewing the patient's pertinent medical records
including radiographs, ventilator management, pressor management, microbiology, laboratory evaluations, and discussion with primary team, consultants, pharmacy, nutrition, physical therapy, case management, charge nurse, critical care nursing, and
respiratory therapy.
Diagnostic data:
Chest x-ray 05/10/2024-NAD
Chest x-ray 11/12/2024-tip of endotracheal tube 3.5 cm above jaylen, new extensive subcutaneous emphysema
Echocardiogram/10/24-EF 65-70%, trace mitral regurgitation, PA systolic 30-35
Subjective Dataa
Subjective Data
Date of Service:
Date of Service: November 13, 2024
Chief Complaint: Broach Operator Follow Up, Pulmonary Follow Up and Vent Management Follow Up
Subjective:
No increased secretions, stable on the ventilator, no increased secretions, #7.0 tube, alert, follows commands
Review of Systems
General: Other (Per HPI)
Objective Data
Data Reviewed
Vital Signs / I&O / Oxygen:
Vital Signs
Temp Pulse Resp BP Pulse Ox
96.9 F L 72 15 108/70 100
11/13/24 06:00 11/13/24 06:00 11/13/24 06:00 11/13/24 06:00 11/13/24 06:00
Intake and Output
11/12/24 11/13/24 11/14/24
06:59 06:59 06:59
Intake Total 1716.4 / 1716.4
Output Total 625 / 625
Balance 1091.4 / 1091.4
SaO2 [A/C] 100
SaO2 100
Physical Exam
General: Respiratory Distress (n) and Comfortable
HEENT: Normocephalic and Anicteric
Cardiovascular: Regular Rhythm
Respiratory: Clear (Anterior cutaneous bleb on skin), Wheeze (n), Crackles (n), Rhonchi, Non-Labored Respirations, Accessory Resp Muscle Use (n), Stridor and ET Tube
GI: Soft and Distended
Neurology: Awake, Alert and No Motor Deficits
Skin: Warm, Good Color, Cyanosis (n), Jaundice and Rash (n)
Labs/Micro/Reports
Lab Data
11/13/24 04:35
11/13/24 04:35
Laboratory Results
11/13/24 11/13/24
03:48 04:35
PT 12.6
INR 0.89
APTT 27.2
pH 7.45
pCO2 22 L
pO2 198 H
HCO3 15.3 L*
O2 Delivery Level
--- NOTE | 2024-11-13 08:00 | PTCARENOTE ---
recd 0715 handoff at bedside, ETT to vent tolerating current settings, comfortable on precedex and fentanyl. skin wound anterior upper sternum/neck unchanged, xeroform gauze maintained, pocket of air approx 2 inch x 5 inch. Horry NG clamped for
meds, surgery, training and development project leader rounded. restraints maintained.
[2024-11-13] MEDS: TYLENOL 650 MG PO (08:19)
[2024-11-13] MEDS: NSS (PRESERVATIVE FREE) 10 ML IV (08:19)
[2024-11-13] MEDS: PROTONIX IV 40 MG IV (08:19)
[2024-11-13] MEDS: ENTEREG PO (08:20)
--- NOTE | 2024-11-13 09:00 | W.PN.CRS1 ---
Today's Communication / Plan
-
extubate per primary team
maintain NGT
invanz
Assessment/Plan
-
POD#1 Robotic ileostomy takedown with ileo-rectosigmoid intracorporeal anastomosis, small bowel resection x1
WBC 8.9. Hgb 7.9 from 8.5
Hypothermic this AM, improved with Marleni hugger. HTN normal without zia gtt.
-Extubate per primary team
-Maintain NGT
-Discontinue miralax
-Continue barros today for I/O's
-Will discuss with furniture salesperson regarding neck/chest blister for ?further workup
-OOB as tolerated if extubated. Okay to clamp NGT 30 minutes for ambulation.
-DVT prophylaxis: TEDS/SCDS in place. Lovenox ordered.
-OR pathology pending
-Pain control: Tylenol standing, Diluadid PRN
-Appreciate furniture salesperson/hospitalist
-Wound RN for upper chest wall blister
-Invanz for 2 days
-On Eliquis at home, 2.5mg BID. Holding for now.
Subjective Data
Procedure
11/12/2024- Robotic ileostomy takedown with ileo-rectosigmoid intracorporeal anastomosis, small bowel resection x1
Subjective Data
Date of Service: November 13, 2024
Patient is intubated. She opens her eyes to voice.
Objective Data
-
Vital Signs
Temp Pulse Resp BP Pulse Ox
97.4 F 72 15 108/70 100
11/13/24 08:00 11/13/24 06:00 11/13/24 06:00 11/13/24 06:00 11/13/24 08:00
Intake & Output
11/12/24 11/13/24 11/14/24
06:59 06:59 06:59
Intake Total 1716.4 / 1716.4
Output Total 625 / 625
Balance 1091.4 / 1091.4
Intake:
IV fluids (Total) 1626.4 / 1626.4
Fentanyl 15.6 / 15.6
Normosol 200 / 200
Nss 1,000 ml @ 100 mls/hr IV . 1300 / 1300
Q10H [facility] Rx#:[id number]
Precedex 110.8 / 110.8
Amount instilled into GI Tube ( /
Total)
Kersey Sump 90 /
Output:
Gastrointestinal tube output ( /
Total)
Kersey Sump /
Urine, Barros 570 / 570
Lab Results
11/13/24 04:35
11/13/24 04:35
Physical Exam
-
General: Other (intubated with some sedation)
HEENT: Other (large purple/red colored serous blister on neck into chest, no active bleeding)
Abdomen: Soft, Non Distended and Tender (around incisions)
Skin: Warm and Dry
Wound: Dressing in Place
--- NOTE | 2024-11-13 09:01 | W.PN.HOSP.TC ---
Addendum entered and electronically signed by Geraldo Tamez MD 11/13/24 21:34:
Attending Addendum-
I saw and evaluated the patient. I reviewed the resident�s note and agree with findings and plan as documented in the resident�s note. Sub: Patient is intubated and sedated.Starting to wake up looks extremely anxious and pointing to ETT wanting it
out. 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 Family present during exam. Full 12 point ROS unable to be obtained Exam- vitals reviewed in EMR GEN-intubated sedated appears uncomfortable Heart RRR chest- extensive crepitus palpated superior thorax redness and thin layer
of skin/blister encompassing air. HEENT-intubated, NG tube in place lungs clear abd soft pos BS incision bandaged LE no edema Gu barros in place draining clear yellow urine
Plan:
# Mesenteric ischemia
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
- s/p Robotic ileostomy takedown with ileo-rectosigmoid intracorporeal anastomosis, small bowel resection-POD#1
- care per primary
- cont entereg, ertapenem x 48 hours, pain control, IVF
# Subcutaneous Emphysema
-cont care in ICU
-resolving
-cont MV for now-SBT likely today- family is adamant patient would not want to be intubated for prolonged periods of time
-cont fentanyl and Precedex for sedation
-check CT neck and chest- Endotracheal tube well-positioned within the trachea, distal tip in the upper thoracic trachea above the jaylen. No findings to confirm focal interruption in the tracheal or bronchial rings.
Extensive widespread subcutaneous emphysema throughout a majority of the soft tissues of the neck and chest
Nasogastric tube coursing through the esophagus into the stomach with few bubbles of air are seen about the nasogastric tube in the posterior mediastinum.
Small volume free air in the abdomen likely related to recent prior right body surgery.
- cont o2
# Leukocytosis
- resolved
- stress rxn
- repeat CBC in am
# Paroxysmal Atrial Fibrillation
- rate controlled
- hold Eliquis
- cont diltiazem
# PMR
- chronically on prednisone 3mg daily
- check cortisol in am
- t/c stress dose steroids
# Acute on Chronic Hyperkalemia
- resolved
- hold Lokelma
- repeat BMP in am
# GERD
- cont pantoprazole
# Hypothyroidism
- cont levothyroxine
# Hyponatremia
- hypovolemic
- resolved
# Acute Blood Loss Anemia
- partially dilution and s/p OR
- transfuse for HB<7
# CKD 3a
- baseline cr @ 1.1
- avoid NT agents
- check BMP in am
# Transaminitis
- trending down
- repeat CMP in am
CODE- FULL->DNR
DVTp-start Lovenox transition to Eliquis 48 hours after surgery
ACP
Patient unable to consentto discuss, d/w daughter and (POA) at great length, time spent explanation of advance directives, changes in health status, patient�s health care wishes if the patient becomes unable to make health decisions, goals
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
CC Note
Due to a high probability of clinically significant, life-threatening deterioration, the patient required a high level of preparedness to intervene emergently. I personally spent this critical care time directly and personally managing the patient.
This critical care time included obtaining a history; examining the patient; ordering and review of studies and STAT labs; arranging urgent treatment with development of a management plan; evaluation of patient's response to treatment; reassessment;
and, discussions with other providers.
This critical care time was performed to assess and manage the high probability of imminent, life-threatening deterioration that could result in multi-organ failure. It was exclusive of separately billable procedures and treating other patients and
teaching time. Total time documented is also exclusive of any additional time listed that was spent in advance care planning discussion
Total critical care time: Approximately 39 minutes
Original Note:
Today's Communication/Plan
-
Hold off on Eliquis for another 24 hours
OOB as tolerated when extubated
Assessment / Plan
Assessment / Plan
84-year-old female with a past medical history of atrial fibrillation on Eliquis, bowel ischemia status post colectomy with ileostom in 12/22, stroke, hypertension, hyperlipidemia, hypothyroidism, hyperkalemia, and polymyalgia rheumatica on chronic
prednisone underwent a 6 hour reported closure of her ileostomy today. She developed subcutaneous emphysema around lower neck and anterior upper chest.
# Bowel ischemia status post ileostomy reversal
-- S/p robotic ileostomy reversal with ileorectal sigmoid intracorporeal anastomosis, small bowel resection; POD-1
-- Currently intubated but awake; on precedex and fentanyl
-- IV fluids and ABX per colorectal
-- NG in place ; n.p.o. per primary team
-- IV Dilaudid every 4 as needed for pain
-- OOB when extubated
# Subcutaneous emphysema
-- Xeroform petroleum dressing around neck and upper chest
-- wound care following
#Hypothermia
-- maintain Marleni hugger
# Paroxysmal atrial fibrillation
-- Hold Eliquis 2.5 mg twice daily for at least 48 hours post procedure
-- Continue diltiazem
# Leukocytosis
-- Resolved
-- Repeat CBC in a.m.
# Hypertension
-- Stable
# CKD 3A
-Creatinine 0.9 (baseline 1.1)
-Continue to monitor BMP
# History of transaminitis
-- Liver profile values within patient's baseline range
# Hypothyroidism
-- Levothyroxine 100 mcg p.o. daily
# GERD
--Pantoprazole 40 mg IV daily
# Chronic hyperkalemia
--Stable
--Will monitor BMP; hold Lokelma for now
# Polymyalgia rheumatica
-- Hold prednisone for now; uses 3 mg prednisone p.o. daily at home
# Neuropathic pain
--Gabapentin 300 mg home regimen
DVT prophylaxis:DUARTE, SCD
Limited DNR
Anticipated Discharge: > 48 hours
Subjective/Interval History
-
Date of Service: November 13, 2024
Intubated but awake, offers no new complaints
Objective Data
-
Labs:
Laboratory Results
11/12/24 11/13/24 11/13/24
21:39 03:48 04:35
WBC 8.9
Hgb 7.9 L
Hct 24.1 L
Plt Count 317
PT 12.6
INR 0.89
APTT 27.2
HCO3 15.3 L*
Sodium 133 L 135
Potassium 4.3 4.3
Chloride 109 H 110 H
Carbon Dioxide 16 L 15 L
BUN 33 H 34 H
Creatinine 0.9 0.9
Glucose 129 H 114 H
Calcium 7.7 L 8.1 L
Total Bilirubin 1.0
AST 37 H
ALT 45 H
Alkaline Phosphatase 299 H
Vital Signs:
Vital Signs
Temp Pulse Resp BP Pulse Ox
97.4 F 72 15 108/70 100
11/13/24 08:00 11/13/24 06:00 11/13/24 06:00 11/13/24 06:00 11/13/24 08:00
I&O
11/12/24 11/13/24 11/14/24
06:59 06:59 06:59
Intake Total 1716.4 / 1716.4
Output Total 625 / 625
Balance 1091.4 / 1091.4
Review of Systems
-
History Source: Patient
Respiratory: Reports No Symptoms
Cardiac: Reports No Symptoms
Abdomen/GI: Reports No Symptoms
Genitourinary: Reports No Symptoms
Skin: Reports Other (sacral wound, erythema around anterior neck and upper chest)
Neuro: Reports No Symptoms
Physical Exam
-
General: Intubated, Appears Chronically Ill and Other (NG tube in place)
Cardiac: Regular Rhythm and S1/S2
GI: Soft, Nontender, Nondistended and Other (Dressing in place)
Genito-urinary: Barros
Musculoskeletal: No Edema
Skin: Other (sacral wound, erythema around neck and upper chest, nonblanchable ecchymotic)
Neuro: Awake
Psych: Calm
Data Reviewed
-
Labs: Labs Reviewed by me and Discussed with Physician
[2024-11-13] MEDS: INVANZ 55 MG IV (09:22)
[2024-11-13 09:58] LABS: % Basophils 0.1 % (0-2); % Immature Granulocytes 0.7 % (0-0.5); % Lymphocytes 3.9 % (20.5-51.1); % Monocytes 11.5 % (1.7-9.3); % Neutrophils 83.8 % (42.2-75.2); Absolute Immature Granulocytes 0.1 10^3/uL (0-0.05); Absolute Lymphocytes 0.4 10^3/uL (1.2-3.4); Absolute Neutrophils 7.5 10^3/uL (1.4-6.5); Nucleated Red Blood Cells % 0 %
--- NOTE | 2024-11-13 09:58 | WOUNDNOTE ---
SHOULDER/UPPER BACK
--- NOTE | 2024-11-13 10:00 | WOUNDNOTE ---
L SHOULDER/CHEST (ANTERIOR)
--- NOTE | 2024-11-13 10:13 | WOUNDNOTE ---
[facility] RN note: Patient admitted s/p robotic ileostomy closure yesterday. Patient intubated in ICU. present.
See H&P for complete history.
PMH: former smoker, HTN, A fib, polymyalgia rheumatica, CVA, colectomy, ileostomy, R hip replacement, L hip fracture with arthroplasty 2023, previous sacral pressure injury.
Wound Location and type/assessment: Patient admitted with: Deep dermal L anterior LE skin tear. Coccyx crease MASD. Outer labia non open raised lesions with mild redness. Patient developed air in anterior chest with large blister and red ecchymotic
skin. She has intact 1/2 filled ecchymotic purple blister with ecchymotic skin on either side of blister. Unsure what caused air in anterior chest. Xeroform gauze being used. L buddhist dermal skin tear.
Appetite: NPO.
Pressure redistribution devices in place: Centrella Max air bed. Patient cannot turn self in bed currently.
Plan: Sacral shaped silicone border foam changed on sacrum. LLE dressing changed. Non adherent dressing maintained on L buddhist. Xeroform gauze maintained on anterior chest. Heels off bed with pillow. Patient turned to L semi side lying position
with help from SENAIT Aranda.
Will confirm orders with hospitalist and discussed with SENAIT Aranda.
Updated care plan and will follow as needed.
Note to case management requested for discharge: VN services if not already in place.
Recommend follow up at wound care center upon discharge.
--- NOTE | 2024-11-13 11:20 | WOUNDNOTE ---
[facility] RN note: Patient seen around 10am. Patient admitted s/p robotic ileostomy closure yesterday. Patient intubated in ICU. present.
See H&P for complete history.
PMH: former smoker, HTN, A fib, polymyalgia rheumatica, CVA, colectomy, ileostomy, R hip replacement, L hip fracture with arthroplasty 2023, previous sacral pressure injury.
Wound Location and type/assessment: Patient admitted with: Deep dermal L anterior LE skin tear. Coccyx crease MASD. Discolored red sacral area from previous ulcer. Outer labia non-open raised skin lesions with mild red skin. Patient developed
anterior chest large blister and red/purple ecchymotic skin. She has intact 1/2 filled ecchymotic purple blister on upper back with ecchymotic skin on either side of blister. Unsure what caused large chest blister however, looks improved as per
patient's . Xeroform gauze being used. L yazidi dermal skin tear.
Appetite: NPO.
Pressure redistribution devices in place: Centrella Max air bed. Patient cannot turn self in bed currently.
Plan: Sacral shaped silicone border foam changed on sacrum. LLE dressing changed. Non adherent dressing maintained on L yazidi. Xeroform gauze maintained on anterior chest. Heels off bed with pillow. Patient turned to L semi side lying position
with help from SENAIT Aranda.
Updated and confirm orders with Dr. Lucas Joy and discussed with SENAIT Aranda.
Care plan to be updated and will follow as needed.
Note to case management requested for discharge: VN services if goes home when discharged if not already in place.
Recommend follow up at wound care center upon discharge.
--- NOTE | 2024-11-13 11:20 | WOUNDNOTE ---
[facility] RN note: Patient seen around 10am. Patient admitted s/p robotic ileostomy closure yesterday. Patient intubated in ICU. present.
See H&P for complete history.
PMH: former smoker, HTN, A fib, polymyalgia rheumatica, CVA, colectomy, ileostomy, R hip replacement, L hip fracture with arthroplasty 2023, previous sacral pressure injury.
Wound Location and type/assessment: Patient admitted with: Deep dermal L anterior LE skin tear. Coccyx crease MASD. Discolored red sacral area from previous ulcer. Outer labia non-open raised skin lesions with mild red skin. Patient developed air
emphysema in anterior chest with large blister and red ecchymotic skin. She has intact 1/2 filled ecchymotic purple blister on upper back with ecchymotic skin on either side of blister. Unsure what caused air in anterior chest. Xeroform gauze being
used. L hinduism dermal skin tear.
Appetite: NPO.
Pressure redistribution devices in place: Centrella Max air bed. Patient cannot turn self in bed currently.
Plan: Sacral shaped silicone border foam changed on sacrum. LLE dressing changed. Non adherent dressing maintained on L hinduism. Xeroform gauze maintained on anterior chest. Heels off bed with pillow. Patient turned to L semi side lying position
with help from SENAIT Aranda.
Updated and confirm orders with Dr. Lucas Joy and discussed with SENAIT Aranda.
Care plan to be updated and will follow as needed.
Note to case management requested for discharge: VN services if goes home when discharged if not already in place.
Recommend follow up at wound care center upon discharge.
--- NOTE | 2024-11-13 12:15 | PTCARENOTE ---
to CT scan, returned to room, tolerated. family visiting, updated
[2024-11-13] MEDS: PRECEDEX 100 IV (12:47)
[2024-11-13] MEDS: TYLENOL PO (12:48)
--- NOTE | 2024-11-13 12:55 | CM ---
Met with patient, and daughter at the bedside; initial assessment completed
Per daughter patient spent the last 3 weeks @ [facility]; Wellness Rx is kept on the chart in the event she needs to return to facility
Admitted to for closure of her ileostomy; patient was awake; ventilated at this time
Local pharmacy verified: [facility]
Patient lives with her in a [place] w/ basement; 2 steps to enter (railing present); bathroom has stall shower with grab bar and seat
Per patient's daughter, patient was somewhat independent 6 weeks ago; patient needed assistance with personal care/ADLs which provided; managed her medication administration; did not drive
Patient had two [facility] stays in 2023
PT/OT assessment pending
Discharge plan to be determined pending hospital course; CM will monitor for needs/services
[2024-11-13] MEDS: NSS (PRESERVATIVE FREE) 0.25 ML IV (14:00)
[2024-11-13] MEDS: ATIVAN 0.5 MG IV (14:00)
--- NOTE | 2024-11-13 14:24 | PTCARENOTE ---
placed on SBT wean, see gtt titration interventions, family bedside.
[2024-11-13] MEDS: TYLENOL ORAL SOLUTION 650 MG TUBE ×2 (16:08→20:09)
--- NOTE | 2024-11-13 16:12 | PTCARENOTE ---
anxious, agitated, gesturing at ETT, attempted to pull it, fussing at equipment and staff. 2 new skin tears RW, RH. Dr. Clay in room, family updated. calmer now, earlier some bradypnea - with agitation tachypneic into the 40s. pt aware of
plans.
--- NOTE | 2024-11-13 16:17 | W.PN.UPDATE ---
Update Note
Progress Note Update
Reevaluated patient multiple times at the bedside
Anxious and wants ET tube out-on spontaneous breathing trial which was tried multiple times if she is oversedated she does not believe if she is under sedated she is anxious
Chest x-ray reviewed, last ABG reviewed and extensive discussion with multiple family members in regards to extubating and risks about potential for need reintubation were reviewed
All in agreement to try taking the tube out as she is very anxious with the breathing tube
BiPAP will be placed at the bedside
Reviewed with critical care nursing and respiratory therapy
--- NOTE | 2024-11-13 16:51 | RESPNOTE ---
Extubated the patient after weaning to 4 Lpm nasal cannula as per the physician order. Patient is doing fine without any SOB or distress, will continue to monitor.
--- NOTE | 2024-11-13 17:00 | PTCARENOTE ---
extubated smoothly 1645, tolerated. 4l nc in place, sats good, no distress. much more comfortable. does note she is 'confused' and 'not understanding' but calm overall. family bedside. abd dressing changed per MD order. skin remains very
friable. with extubation, tape began to pull skin off face (not the ETT love, just 1 inch silk tape) so most of it remains on face - snipped it at ETT to remove the tube.
[2024-11-13] MEDS: LOVENOX 40 MG SC (17:37)
[2024-11-13] MEDS: CARDIZEM TUBE (17:37)
[2024-11-13] MEDS: ENTEREG 12 MG PO (20:10)
[2024-11-13] MEDS: NEURONTIN 300 MG TUBE (20:10)
--- NOTE | 2024-11-13 21:00 | PTCARENOTE ---
Assumed care of pt at 1900. Pt alert, oriented to person and place, knew the year but not the month and forgetful about situation. Able to follow commands and move all extremities. Pt has denied pain so far. Received pt on 4LNC, has since been
weaned to 2LNC. SR 70s on monitor. See nursing shift assessment flowsheet for full physical assessment details. Bed alarm activated.
[2024-11-13] MEDS: NEO-SYNEPHRINE 250 IV (22:05)
[2024-11-14] VITALS (32 sets, daily range): BP systolic 89–138; BP diastolic 51–92; BMI 21.2
[2024-11-14] MEDS: TYLENOL ORAL SOLUTION 650 MG TUBE ×6 (00:01→19:57)
[2024-11-14] MEDS: CARDIZEM 30 MG TUBE ×3 (00:03→12:03)
--- NOTE | 2024-11-14 01:39 | PTCARENOTE ---
Assessment mostly unchanged. Weaned off oxygen for a few hours, then placed back on 2LNC when pt fell asleep, was desatting to 87-88%. Phenylephrine needed to be started at around 2200 when pt's BP was consistently low. Has maintained MAP >65 on
20mcg/min. At around 0030 went to give pt CHG cloth bath and noticed that she had had a large liquid brown/green BM. CHG clothes used as well as soap and water, pt slightly excoriated to inner buttocks, barrier cream applied, pt started having
almost a constant stream of liquid coming from her rectum. Rectal trumpet placed. Pt now resting with eyes closed. SR 70s on monitor.
[2024-11-14 03:59] LABS: % Basophils 0.2 % (0-2); % Eosinophils 0.5 % (0-6); % Immature Granulocytes 1.3 % (0-0.5); % Lymphocytes 9.3 % (20.5-51.1); % Monocytes 14.5 % (1.7-9.3); % Neutrophils 74.2 % (42.2-75.2); Absolute Eosinophils 0.1 10^3/uL (0-0.7); Absolute Immature Granulocytes 0.1 10^3/uL (0-0.05); Absolute Monocytes 1.6 10^3/uL (0.1-0.6); Hematocrit 22.7 % (37.0-47.0); Hemoglobin 7.2 g/dL (12.0-16.0); Mean Corp Hgb Conc. 31.7 g/dL (33.0-37.0); Mean Corpuscular Volume 94.6 fL (81.0-99.0); Mean Platelet Volume 10.4 fL (7.4-10.4); Nucleated Red Blood Cells % 0.2 %; Platelet Count 336 10^3/uL (130-400); Red Cell Dist. Width 18.4 % (11.5-14.5); White Blood Cell Count 10.8 10^3/uL (4.8-10.8)
[2024-11-14 05:09] LABS: Blood Urea Nitrogen 34 mg/dl (7-17); Calcium 8.2 mg/dl (8.4-10.2); Carbon Dioxide 14 mmol/L (22-30); Chloride 114 mmol/L (98-107); Estimated Creatinine Clearance 36 ml/min; Glucose 70 mg/dl (70-99); Potassium 3.8 mmol/L (3.5-5.1); Sodium 139 mmol/L (135-145); eGFR > 60.00
[2024-11-14] MEDS: SYNTHROID 100 MCG PO (05:17)
[2024-11-14] MEDS: SODIUM BICARBONATE 1150 MEQ IV (06:17)
--- NOTE | 2024-11-14 06:33 | PTCARENOTE ---
Assessment unchanged. Keith removed. Rectal trumpet in place. IVF changed to SW with bicarb. Pt's mental status continuing to improve, periods of forgetfulness but otherwise A/O x4 and appropriate with conversation. Pt reporting severe pain, is
guarding her abd but reports that her pain is in her upper legs, 9/10. Pt states that Dilaudid 'makes me crazy' and that she cannot take that, stated that morphine was ok, discussed with Rachel LIM and pain med order changed to morphine.
[2024-11-14] MEDS: MORPHINE SULFATE 1 MG IV ×3 (06:47→20:32)
--- NOTE | 2024-11-14 07:22 | W.PN.HOSP.TC ---
Addendum entered and electronically signed by Geraldo Tamez MD 11/14/24 20:21:
Attending Addendum-
I saw and evaluated the patient. I reviewed the resident�s note and agree with findings and plan as documented in the resident�s note. Sub: Extubated yesterday without issue. Family present during exam. Patient complains of 'pain all over' Denies
fevers chills abd pain NV. Passed some liquid stool and flatus. Full 12 point ROS unable to be obtained Exam- vitals reviewed in EMR GEN-NAD Heart RRR chest- crepitus palpated superior thorax b/l wound covered. HEENT-NG tube in place lungs clear
abd soft pos BS LE no edema barros in place draining clear yellow urine
Plan:
# H/O Mesenteric ischemia
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
- s/p Robotic ileostomy takedown with ileo-rectosigmoid intracorporeal anastomosis, small bowel resection-POD#2
- care per primary
- barros to be removed today/POD#2
- cont entereg, proph ertapenem x 48 hours-completed, pain control, IVF
# Subcutaneous Emphysema
-resolving-transfer out of ICU
-extubated at patient and family request on 11/13- would like to be DNI moving forward
-cont o2
# Leukocytosis
- resolved
- repeat CBC in am
# Paroxysmal Atrial Fibrillation
- rate controlled
- hold Eliquis
- transition to therapeutic Lovenox in am
- cont diltiazem
# Metabolic Acidosis
- cont IVF with bicarb
- cont to trend
# PMR
- chronically on prednisone 3mg daily
- restart prednisone
# Acute on Chronic Hyperkalemia
- resolved
- hold Lokelma
- repeat BMP in am
# GERD
- cont pantoprazole
# Hypothyroidism
- cont levothyroxine
# Hyponatremia
- hypovolemic
- resolved
# Acute Blood Loss Anemia
- trending down
- partially dilution s/p OR
- transfuse for HB<7
# CKD 3a
- baseline cr @ 1.1
- avoid NT agents
- check BMP in am
# Transaminitis
- trending down
- repeat CMP in am
CODE- FULL->DNR
DVTp-cont Lovenox, transition to therapeutic dosing in am
Time spent coordinating care, review of plan of care with resident, personally reviewed records in EMR, med rec, consults, notes, labs, radiology, d/w nursing ICU and � 54 mins
Original Note:
Today's Communication/Plan
-
Maintain NG tube
OOB ambulate
Awaiting return of bowel function
Assessment / Plan
Assessment / Plan
84-year-old female with a past medical history of atrial fibrillation on Eliquis, bowel ischemia status post colectomy with ileostom in 12/22, stroke, hypertension, hyperlipidemia, hypothyroidism, hyperkalemia, and polymyalgia rheumatica on chronic
prednisone underwent a 6 hour reported closure of her ileostomy today. She developed subcutaneous emphysema around lower neck and anterior upper chest.
# Bowel ischemia status post ileostomy reversal
-- S/p robotic ileostomy reversal with ileorectal sigmoid intracorporeal anastomosis, small bowel resection; POD-2
-- IV fluids and ABX per colorectal; completed 2 days of invanz
-- NG in place; plan to maintain for additional 24 hrs ; n.p.o. per primary team
-- IV Dilaudid every 4 as needed for pain
-- OOB when extubated; ok to clamp ng for ambulation
-- Required zia overnight but currently off.
-- Radhaain papo for now
-- Awaiting return of bowel function
-- na bicarb based fluid due to worsening acidosis
-- hb dropping-likely due to IntraOp blood loss versus dilutional from IV fluids; will repeat in a.m., transfuse if Hb < 7
# Subcutaneous emphysema/wound
-- emphysema resolved
-- Xeroform petroleum dressing around neck and upper chest
-- wound care following
#Hypothermia
-- resolved
# Paroxysmal atrial fibrillation
-- Hold Eliquis 2.5 mg
-- Continue diltiazem
-- started on lovenox for dvt proph.
# Leukocytosis
-- Resolved
-- Repeat CBC in a.m.
# Hypertension
-- Stable
# CKD 3A
-Creatinine 0.9 (baseline 1.1)
-Continue to monitor BMP
# History of transaminitis
-- Liver profile values within patient's baseline range
# Hypothyroidism
-- Levothyroxine 100 mcg p.o. daily
# GERD
--Pantoprazole 40 mg IV daily
# Chronic hyperkalemia
--Stable
--Will monitor BMP; hold Lokelma for now
# Polymyalgia rheumatica
-- Resume prednisone 3 mg home dose; okay with Dr. López
# Neuropathic pain
--Gabapentin 300 mg home regimen
DVT prophylaxis:Lovenox
DNR
Anticipated Discharge: 24 - 48 hours
Subjective/Interval History
-
Date of Service: November 14, 2024
Extubated. Sitting in the chair. Comfortable. Reports no new complaints. AFVSS
Objective Data
-
Labs:
Laboratory Results
11/14/24
03:49
WBC 10.8
Hgb 7.2 L
Hct 22.7 L
Plt Count 336
Sodium 139
Potassium 3.8
Chloride 114 H
Carbon Dioxide 14 L*
BUN 34 H
Creatinine 0.9
Glucose 70
Calcium 8.2 L
Vital Signs:
Vital Signs
Temp Pulse Resp BP Pulse Ox
97.2 F 89 18 102/54 94
11/14/24 03:59 11/14/24 07:00 11/14/24 07:00 11/14/24 07:00 11/14/24 07:14
I&O
11/13/24 11/14/24 11/15/24
06:59 06:59 06:59
Intake Total 1716.4 / 1827.0 2834.3 / 2934.3 100 / 100
Output Total 625 / 625 850 / 850
Balance 1091.4 / 1202.0 1984.3 / 4.3 100 /
Review of Systems
-
History Source: Patient
Constitutional: Reports No Symptoms
Respiratory: Reports No Symptoms
Cardiac: Reports No Symptoms
Abdomen/GI: Reports No Symptoms
Genitourinary: Reports No Symptoms
Skin: Reports Other (erythema around anterior neck and upper chest)
Neuro: Reports No Symptoms
Physical Exam
-
General: No Apparent Distress, Comfortable, Appears Chronically Ill and Other (NG tube in place)
Cardiac: Regular Rhythm and S1/S2
GI: Soft, Nontender, Nondistended and Other (Dressing in place)
Genito-urinary: Barros
Musculoskeletal: No Edema
Skin: Other (sacral wound, resolving erythema around neck and upper chest, nonblanchable ecchymotic)
Neuro: Awake
Psych: Calm
Data Reviewed
-
Labs: Labs Reviewed by me, Discussed with Physician and Discussed with Patient
[2024-11-14] MEDS: NEURONTIN 300 MG TUBE ×2 (07:31→19:58)
[2024-11-14] MEDS: NSS (PRESERVATIVE FREE) 10 ML IV (07:31)
[2024-11-14] MEDS: PROTONIX IV 40 MG IV (07:31)
[2024-11-14] MEDS: ENTEREG 12 MG PO ×2 (07:31→20:06)
--- NOTE | 2024-11-14 07:38 | W.PN.INTV ---
Today's Communication / Plan
Recommendations
Tolerated extubation
Wean FiO2
Increase activity
Nasogastric tube per surgery
Antibiotics per surgery
Transfer out of ICU-call pulmonary if respiratory issues arise
Assessment
-
84-year-old former smoking female with a history of hyperlipidemia, hypertension, atrial fibrillation, polymyalgia rheumatica, CVA, hypothyroid who had a history of ileostomy status post colectomy for acute ischemia November 2023 and now underwent
robotic ileostomy takedown with ileal rectosigmoid intracorporeal anastomosis and small bowel resection with significant subcutaneous air left intubated-oil pump station operator chief consulted for postoperative ventilator/critical care management 11/12/2024.
Status post colectomy/ileostomy for acute ischemia November 2023
Status post robotic ileostomy takedown with ileal rectosigmoid intracorporeal anastomosis, small bowel resection-Dr. López 11/12/2024
Anemia-normocytic
Significant subcutaneous emphysema-no history of pulmonary/ventilator issues, most likely CO2 abdominal expansion related
Conditions present prior to admission:
Recent hospitalization 10/08/2024-severe lower back pain, none anion gap metabolic acidosis, mild hyponatremia,
Hypertension.
Hyperlipidemia.
Atrial fibrillation.
Spinal stenosis.
Hypothyroid.
CVA 03/2024.
Mesenteric ischemia.
PMR.
GERD.
Cardiac ablation 2018.
Right hip replacement 2020. 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 Left hip fracture/arthroplasty 2023.
Plan
Tolerated extubation 11/13/2024
Incentive spirometry
Nebulizers if needed-currently not bronchospastic
Aspiration precautions
Nasogastric tube per surgery
Chest x-ray 11/13/2024-extensive subcutaneous emphysema, no pneumothorax
CT chest and neck-Dr. Clay reviewed with radiology 11/13/2024-significant subcutaneous air, no tracheal ring interruption, some free air
Monitor subcutaneous air-overall decreasing
Operative records reviewed-reviewed with Dr. López
Surgery following closely-correspondence reviewed
Empiric antibiotics continue
Intravenous fluids-decrease
Pressors if needed
Follow hemoglobin
Transfuse if needed
DVT prophylaxis recommended
GI prophylaxis-on pantoprazole
Early nutrition per surgery
Early mobilization
Reviewed with Dr. López on multidisciplinary rounds
Reviewed with on multidisciplinary rounds on 11/13/2024 and again on 11/14/2024
Patient stable for transfer out of ICU-call pulmonary if respiratory issues arise
Reviewed the patient's pertinent medical records including radiographs, ventilator management, pressor management, microbiology, laboratory evaluations, and discussion with primary team, consultants, pharmacy, nutrition, physical therapy, case
management, charge nurse, critical care nursing, and respiratory therapy.
Diagnostic data:
Chest x-ray 05/10/2024-NAD
Chest x-ray 11/12/2024-tip of endotracheal tube 3.5 cm above jaylen, new extensive subcutaneous emphysema
Echocardiogram/10/24-EF 65-70%, trace mitral regurgitation, PA systolic 30-35
Subjective Dataa
Subjective Data
Date of Service:
Date of Service: November 14, 2024
Chief Complaint: Food And Beverage Intern Follow Up, Pulmonary Follow Up and Vent Management Follow Up
Subjective:
Tolerated extubation, no complaints of shortness of breath, pain controlled, some mild abdominal pain, having some BM loose
Review of Systems
General: Other (Per HPI)
Objective Data
Data Reviewed
Vital Signs / I&O / Oxygen:
Vital Signs
Temp Pulse Resp BP Pulse Ox
97.2 F 89 18 102/54 94
11/14/24 03:59 11/14/24 07:00 11/14/24 07:00 11/14/24 07:00 11/14/24 07:14
Intake and Output
11/13/24 11/14/24 11/15/24
06:59 06:59 06:59
Intake Total 1716.4 / 1827.0 2834.3 / 2934.3 100 / 100
Output Total 625 / 625 850 / 850
Balance 1091.4 / 1202.0 1984.3 / 2083.3 100 / 100
SaO2 [CPAP/PSV] 100
SaO2 [A/C] 98
SaO2 94
Nasal Cannula flow liters per 3
minute
Physical Exam
General: Respiratory Distress (n) and Comfortable
HEENT: Normocephalic and Anicteric
Cardiovascular: Regular Rhythm
Respiratory: Clear (Anterior cutaneous bleb on skin), Wheeze (n), Crackles (n), Rhonchi, Non-Labored Respirations, Accessory Resp Muscle Use (n) and Stridor
GI: Soft and Distended
Neurology: Awake, Alert and No Motor Deficits
Skin: Warm, Good Color, Cyanosis (n), Jaundice and Rash (n)
Labs/Micro/Reports
Lab Data
11/14/24 03:49
11/14/24 03:49
[2024-11-14] MEDS: INVANZ 55 MG IV (08:29)
--- NOTE | 2024-11-14 08:44 | PTCARENOTE ---
recd on room air, sats mid 80s, enc c&db, oxygen applied. assessed as noted. seen by Drs. López and Danna. mentation improved but pt notes some residual fogginess/confusion, 'this is my brain on drugs'. pain meds as noted earlier, relief
obtained. family presently visiting. skin with multiple ongoing issues, skin tears, vaseline gauze changed to L mu-ism. eager and willing to get out of bed.
--- NOTE | 2024-11-14 08:58 | PTCARENOTE ---
able to remove 1' tape on upper lip and R side of face (from ETT) with vaseline ointment. tolerated. skin with small amounts open areas but skin still present R cheek. notes she feels better. removed statlock L thigh without incident.
--- NOTE | 2024-11-14 10:00 | W.PN.CRS1 ---
Today's Communication / Plan
-
Maintain NG tube
Wound care
Hold on Eliquis/therapeutic Lovenox for now
Assessment/Plan
-
POD# 2 robotic ileostomy takedown with ileo-rectosigmoid intracorporeal anastomosis, small bowel resection x1
WBC 10.8. Hgb 7.2 from 7.9.
Was on zia briefly overnight but currently off.
Vitals otherwise normal. Was hypothermic but improved.
-Maintain NGT
-Continue barros today for I/O's
-Appreciate wound care. Discussed Xeroform on chest blister. Wound is not thought to be emphysema related. Unsure of cause.
-OOB as tolerated if extubated. Okay to clamp NGT 30 minutes for ambulation. Will keep in at least another day given she has a small bowel anastomosis.
-DVT prophylaxis: TEDS/SCDS in place. Lovenox ordered.
-OR pathology pending
-Pain control: Tylenol standing, Diluadid PRN
-Appreciate medical librarian/hospitalist
-Appreciate wound nurse. Will order Desitin to buttocks area 4 times daily.
-Invanz for 2 days total, currently completed
-On Eliquis at home, 2.5mg BID. Holding for now. If hemoglobin is stable tomorrow we will consider starting a therapeutic dose of Lovenox.
-Trend hemoglobin. May require transfusion if continues to drop.
-I updated her Theresa and Corbin, via phone.
Subjective Data
Procedure
11/12/2024- Robotic ileostomy takedown with ileo-rectosigmoid intracorporeal anastomosis, small bowel resection x1
Subjective Data
Date of Service: November 14, 2024
Patient states her pain is 'okay'. She is having a lot of liquid stool. She denies nausea or vomiting. The NG tube remains in place. She has a lot of lose stools.
Objective Data
-
Vital Signs
Temp Pulse Resp BP Pulse Ox
97.6 F 87 19 109/62 98
11/14/24 07:45 11/14/24 08:00 11/14/24 08:00 11/14/24 08:00 11/14/24 08:00
Intake & Output
11/13/24 11/14/24 11/15/24
06:59 06:59 06:59
Intake Total 1716.4 / 1827.0 2834.3 / 2934.3 380 / 380
Output Total 625 / 625 850 / 850
Balance 1091.4 / 1202.0 1984.3 / 2084.3 380 / 380
Intake:
IV fluids (Total) 1626.4 / 1737.0 2479.3 / 2579.3 300 / 300
Fentanyl 15.6 / 20.6 42.5 / 42.5
Normosol 200 / 200
Nss 1,000 ml @ 100 mls/hr IV . 1300 / 1400 2350 / 2350
Q10H DAVID Rx#:[id number]
Phenylephrine 27.6 / 27.6
Precedex 110.8 / 116.4 59.2 / 59.2
Sterile Water For Injection 300 / 300
1000 ml 1,000 ml @ 100 mls/hr
IV .[id number] DAVID with Sodium
Bicarbonate 150 Meq Rx#:
[id number]
IV piggybacks 50 / 50 50 / 50
Amount instilled into GI Tube ( 90 / 90 305 / 305 30 / 30
Total)
[place] Sump 90 / 90 305 / 305 30 / 30
Output:
Liquid stool amount 100 / 100
Rectum 100 / 100
Gastrointestinal tube output ( 55 / 55 100 / 100
Total)
[place] Sump 55 / 55 100 / 100
Urine, Barros 570 / 570 650 / 650
Lab Results
11/14/24 03:49
02/14/25 03:49
Physical Exam
-
General: No Acute Distress and AOx3
Abdomen: Soft, Non Distended and Non Tender
Skin: Warm, Dry and Other (Large blisterlike area under her chin and neck unchanged, covered in Xeroform)
Incision: Clear, Dry, Intact
--- NOTE | 2024-11-14 11:25 | WOUNDNOTE ---
WO RN note: Patient sitting in chair with air chair cushion. Anterior chest blister mostly flat with red/purple/black ecchymotic areas. Patient has a R wrist and hand dermal skin tear r/t fragile skin (documented on admission). Silicone border foam
changed on R wrist. Current wound care appropriate. Discussed anterior chest blister/skin with Dr. López and PAULETTE Sena earlier this am and asked about plastics consult if they think indicated.
[2024-11-14] MEDS: DESITIN MAXIMUM STRENGTH PASTE 1 APPLIC TOPICAL ×3 (12:06→23:00)
--- NOTE | 2024-11-14 13:10 | PTCARENOTE ---
pt wakes to name states some discomfort in rectal area and with ngt. only wants the scheduled tylenol. room air breath sounds clear. ngt to wall suction. positive bowel sounds. ivf running as ordered.
--- NOTE | 2024-11-14 15:01 | CM ---
Met with patient and daughter
PT rec SNF - discussed options of SNF
Patient was at [facility] prior to hospitalization
Referral entered in careport
PLAN: SNF, pending bed availability when medically stable
[2024-11-14] MEDS: D5/0.45%NSS with KCL 20 MEQ 1000 IV (16:19)
--- NOTE | 2024-11-14 16:30 | PTCARENOTE ---
crepitus noted over right arm right chest neck area.
[2024-11-14] MEDS: CARDIZEM TUBE (17:39)
[2024-11-14] MEDS: LOVENOX 40 MG SC (17:45)
--- NOTE | 2024-11-14 20:00 | PTCARENOTE ---
Received patient at 1900. Pt. currently awake, alert, and oriented. Family at bedside. Pt. denies pain/discomfort. Afebrile. Heart rhythm sinus. Blood pressure normotensive. Currently on nasal cannula. Lungs sound diminished. NGT in place.
Incontinent of urine. Skin as documented. Discussed plan of care with patient. Vital signs stable at this time.
[2024-11-15] VITALS (23 sets, daily range): BP systolic 92–156; BP diastolic 52–129; BMI 22.0
[2024-11-15] MEDS: CARDIZEM 30 MG TUBE ×5 (01:00→23:33)
[2024-11-15] MEDS: TYLENOL ORAL SOLUTION 650 MG TUBE ×4 (01:00→12:49)
[2024-11-15 03:46] LABS: % Basophils 0.5 % (0-2); % Eosinophils 1.8 % (0-6); % Lymphocytes 12.9 % (20.5-51.1); % Monocytes 14.7 % (1.7-9.3); % Neutrophils 69.1 % (42.2-75.2); Absolute Basophils 0.1 10^3/uL (0-0.2); Absolute Eosinophils 0.2 10^3/uL (0-0.7); Absolute Immature Granulocytes 0.1 10^3/uL (0-0.05); Absolute Lymphocytes 1.3 10^3/uL (1.2-3.4); Absolute Monocytes 1.4 10^3/uL (0.1-0.6); Absolute Neutrophils 6.7 10^3/uL (1.4-6.5); Hematocrit 22.6 % (37.0-47.0); Hemoglobin 7.1 g/dL (12.0-16.0); Mean Corp Hgb Conc. 31.4 g/dL (33.0-37.0); Mean Corpuscular Hgb 30.1 pg (27.0-31.0); Mean Corpuscular Volume 95.8 fL (81.0-99.0); Mean Platelet Volume 10.4 fL (7.4-10.4); Nucleated Red Blood Cells % 0 %; Platelet Count 336 10^3/uL (130-400); Red Blood Cell Count 2.36 10^6/uL (4.20-5.40); Red Cell Dist. Width 18.3 % (11.5-14.5); White Blood Cell Count 9.7 10^3/uL (4.8-10.8)
[2024-11-15 04:14] LABS: Blood Urea Nitrogen 29 mg/dl (7-17); Calcium 8.1 mg/dl (8.4-10.2); Carbon Dioxide 21 mmol/L (22-30); Chloride 111 mmol/L (98-107); Estimated Creatinine Clearance 36 ml/min; Glucose 108 mg/dl (70-99); Potassium 3.4 mmol/L (3.5-5.1); Sodium 140 mmol/L (135-145); eGFR > 60.00
[2024-11-15] MEDS: SYNTHROID 100 MCG PO (05:11)
[2024-11-15] MEDS: D5/0.45%NSS with KCL 20 MEQ 1000 IV ×2 (05:31→20:10)
[2024-11-15] MEDS: DELTASONE PO (08:02)
[2024-11-15] MEDS: NEURONTIN 300 MG TUBE ×2 (08:03→19:05)
[2024-11-15] MEDS: ENTEREG 12 MG PO ×2 (08:04→19:03)
[2024-11-15] MEDS: DESITIN MAXIMUM STRENGTH PASTE 1 APPLIC TOPICAL ×4 (08:06→23:00)
[2024-11-15] MEDS: NSS (PRESERVATIVE FREE) 10 ML IV (08:07)
[2024-11-15] MEDS: PROTONIX IV 40 MG IV (08:07)
--- NOTE | 2024-11-15 08:41 | PTCARENOTE ---
Pt received in bed @ 0700. AAOx3, but forgetful. Anxious and tearful. Very sensitive to any tactile stimuli. Yelling out, crying. Stating, 'I can't do this anymore.' Emotional support provided. SaO2 99% on 2L NC. SaO2 observed 85% on room air; 2L NC
reapplied. Nonproductive moist cough. Sinus rhythm with 1st degree AV block on residential monitor. + 1 LLE edema. NGT to continuous -80mmhg suction. Small clear brown output. Rectal trumpet in place draining liquid brown green stool. Incontinent of
urine. Dressings C/D/I. D5 1/2 NSS with KCl 20meq infusing @ 70ml/hr.
[2024-11-15] MEDS: MORPHINE SULFATE 2 MG IV (09:55)
--- NOTE | 2024-11-15 12:26 | W.PN.CRS1 ---
Addendum entered and electronically signed by Marino Palmer MD 11/15/24 13:41:
I saw and examined the patient independently.
The Tax Accounting Manager's note was reviewed and I agree with the note, assessment and plan except where noted below.
Comment: Postop day 3 from robotic ileostomy takedown with ileal rectosigmoid intracorporeal anastomosis and small bowel resection. Patient reports bowel function. Minimal NG tube output. Rectal tube in place
NG tube removed at bedside.
Will continue n.p.o. with meds and sips and chips.
Incentive spirometry.
Appreciate wound care: Discussed Xeroform on chest blisters as well as on face.
Original Note:
Today's Communication / Plan
-
ngt removed
npo with chips/sips
Assessment/Plan
-
POD# 3 robotic ileostomy takedown with ileo-rectosigmoid intracorporeal anastomosis, small bowel resection x1
WBC 9.7 from 10.8, Hgb 7.1 from 7.2
Vitals otherwise normal.
-NGT removed at bedside by Dr. Palmer. NPO with chips/sips.
-Keith discontinued
-Incentive spirometry q1h while awake.
-Appreciate wound care. Discussed Xeroform on chest blister. Unsure of cause.
-DVT prophylaxis: TEDS/SCDS in place. Lovenox ordered.
-OR pathology pending
-Pain control: Tylenol standing, Dilaudid PRN
-Appreciate escalator mechanic/hospitalist
-Appreciate wound nurse. Will order Desitin to buttocks area 4 times daily.
-On Eliquis at home, 2.5mg BID. Holding for now. When hemoglobin stabilizes, will start therapeutic dose of Lovenox.
-Trend hemoglobin. May require transfusion if continues to drop.
-Dr. Denis with plastic surgery will see on Sunday. Dr. López spoke to him on 11/14. Family aware.
-Family updated at bedside.
Subjective Data
Procedure
11/12/2024- Robotic ileostomy takedown with ileo-rectosigmoid intracorporeal anastomosis, small bowel resection x1
Subjective Data
Date of Service: November 15, 2024
Patient states she has flatus and loose bowel movements. The NGT is bothering her. She had some abdominal pain but got morphine earlier and now she has no pain.
Objective Data
-
Vital Signs
Temp Pulse Resp BP Pulse Ox
97.8 F 85 10 131/84 98
11/15/24 12:08 11/15/24 10:00 11/15/24 02:00 11/15/24 10:00 11/15/24 10:00
Intake & Output
11/14/24 11/15/24 11/16/24
06:59 06:59 06:59
Intake Total 2834.3 / 2934.3 2049 310 / 310
Output Total 850 / 850
Balance 1984.3 / 2084.3 2049 310 / 310
Intake:
IV fluids (Total) 2479.3 / 2579.3 1909 280 / 280
D5/0.45%NSS with KCL 20 MEQ 20 910 / 980 280 / 280
meq In 1,000 ml @ 70 mls/hr IV
.[id number] [facility] Rx#:[id number]
Fentanyl 42.5 / 42.5
Nss 1,000 ml @ 100 mls/hr IV . 2350 / 2350
Q10H DAVID Rx#:[id number]
Phenylephrine 27.6 / 27.6
Precedex 59.2 / 59.2
Sterile Water For Injection 1000 / 1000
1000 ml 1,000 ml @ 100 mls/hr
IV .[id number] DAVID with Sodium
Bicarbonate 150 Meq Rx#:
[id number]
IV piggybacks 50 / 50 50 / 50
Feeding tube flush amount 60 / 60
Amount instilled into GI Tube ( 305 / 305 30 / 30 30 / 30
Total)
[place] Sump 305 / 305 30 / 30 30 / 30
Output:
Liquid stool amount 100 / 100
Rectum 100 / 100
Gastrointestinal tube output ( 100 / 100
Total)
[place] Sump 100 / 100
Urine, [place] 650 / 650
Other:
How many times incontinent 1
SMALL amount urine
How many times incontinent 1 1
MODERATE amount urine
How many times incontinent 1
SATURATED amount urine
Lab Results
11/15/24 03:20
11/15/24 03:20
Physical Exam
-
General: No Acute Distress and AOx3
Abdomen: Soft, Non Distended and Non Tender
Skin: Warm, Dry and Other (Warm, Dry and Other (Large blisterlike area under her chin and neck unchanged, covered in Xeroform))
--- NOTE | 2024-11-15 12:48 | PTCARENOTE ---
Pt reassessed. Wound care provided per order. Pt winced and cried in pain at approach to wound care. PRN Morphine 2mg IV provided for 10/10 pain and wound care provided. NGT removed by Dr. Palmer. Nasal canula removed and pt placed on room air. SaO2
95% Incentive spirometer to 1,000ml.
--- NOTE | 2024-11-15 14:41 | W.PN.HOSP.TC ---
Today's Communication/Plan
-
Postop care.
Assessment / Plan
Assessment / Plan
Physical exam:
General: Acutely ill
HEENT: Normocephalic, Atraumatic and Moist Mucous Membranes
Respiratory: Clear to Auscultation; Negative Wheezes, Rales or Rhonchi
Cardiac: Regular Rhythm and S1/S2
GI: Soft, nontender nondistended. Postop findings
Skin: Blister-like area neck and chin area
Neuro: Awake, Alert and Oriented, no neurological deficit
Psych: Calm
A/P:
# H/O Mesenteric ischemia
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
- s/p Robotic ileostomy takedown with ileo-rectosigmoid intracorporeal anastomosis, small bowel resection-POD#3
- care per primary
-NG tube removed today on 11/15
-Rectal tube in place
-Incentive spirometry
-Pain control
-On Entereg and IV Protonix
-Continue n.p.o. with meds and sips and chips per surgery
# Chest and face blister
-Continue wound care and using zinc oxide
-Plastic surgery to see her in a couple days
# Subcutaneous Emphysema
-[place] to be related to tracking of CO2 from abdominal insufflation during surgery
-resolving-transfer out of ICU per milk hauler and primary team.
-extubated at patient and family request on 11/13- would like to be DNI moving forward
-cont o2
# Leukocytosis
- resolved
-WBC 9.7 today
# Paroxysmal Atrial Fibrillation
- rate controlled with diltiazem 30 mg every 6 hours
- holding Eliquis
-Might change doses of Lovenox to full dose if hemoglobin remains stable
-Continue cardiac monitoring
# Metabolic Acidosis
-Improving.
-Bicarb 21 today.
- cont to trend
# PMR
- chronically on prednisone 3mg daily
# Hyperkalemia
- resolved
#Hypokalemia
-Replete and trend
# GERD
- cont pantoprazole
# Hypothyroidism
- cont levothyroxine
# Hyponatremia
-Resolved
-Sodium 140 today
# Acute Blood Loss Anemia
-Hemoglobin 7.1 today
- partially dilution s/p OR
- transfuse for HB<7
# CKD 3a
- baseline cr @ 1.1
- avoid NT agents
-Creatinine 0.9 today
# Transaminitis
-Trend every so often
CODE- FULL->DNR
DVT prophylaxis-Lovenox
Total time spent on today's encounter was 52 minutes which included time spent in counseling the patient/family regarding diagnosis and treatment plan as listed above, goals of care, and symptom management. Case was discussed with nursing staff,
specialists, and care coordinators/case management. All labs and imaging personally reviewed by me. Remainder the time spent in detailed review of previous records, lab data, imaging, and other medical provider documentation.
Anticipated Discharge: > 48 hours
Subjective/Interval History
-
Date of Service: November 15, 2024
Patient had NG tube removed earlier this morning and feels more comfortable this afternoon. She has been passing gases and having bowel movement. Afebrile
Objective Data
-
Labs:
Laboratory Results
11/15/24
03:20
WBC 9.7
Hgb 7.1 L
Hct 22.6 L
Plt Count 336
Sodium 140
Potassium 3.4 L
Chloride 111 H
Carbon Dioxide 21 L
BUN 29 H
Creatinine 0.9
Glucose 108 H
Calcium 8.1 L
Vital Signs:
Vital Signs
Temp Pulse Resp BP Pulse Ox
97.8 F 70 10 98/56 99
11/15/24 12:08 11/15/24 14:00 11/15/24 14:00 11/15/24 14:00 11/15/24 11:00
I&O
11/14/24 11/15/24 11/16/24
06:59 06:59 06:59
Intake Total 2834.3 / 2934.3 2049 590 / 590
Output Total 850 / 850
Balance 1983.3 / 2083.3 2049 590 / 590
[2024-11-15] MEDS: TYLENOL 650 MG PO ×2 (16:36→19:03)
[2024-11-15] MEDS: LOVENOX 40 MG SC (17:28)
--- NOTE | 2024-11-15 17:56 | PTCARENOTE ---
Pt reassessed. Pt tolerating ice chips and sips of clears. PO medication without observed difficulty. CHG cloth bath performed with shampoo cap and linens changed.
--- NOTE | 2024-11-15 20:00 | PTCARENOTE ---
Received pt. at 1900. Pt. currently awake, alert, and oriented. Denies pain/discomfort. Afebrile. Heart rhythm sinus. Blood pressure normotensive. Currently on room air. Lungs sound diminished. NPO. Rectal trumpet in place. Incontinent of urine.
Skin as documented. Discussed plan of care with patient. Vital signs stable at this time.
[2024-11-16] VITALS (18 sets, daily range): BP systolic 94–157; BP diastolic 48–95; PULSE 72; O2SAT 94; BMI 21.8
[2024-11-16] MEDS: TYLENOL 650 MG PO ×6 (00:20→23:11)
[2024-11-16 05:14] LABS: % Basophils 0.6 % (0-2); % Eosinophils 2.8 % (0-6); % Immature Granulocytes 1.8 % (0-0.5); % Monocytes 14.1 % (1.7-9.3); % Neutrophils 67.7 % (42.2-75.2); Absolute Basophils 0.1 10^3/uL (0-0.2); Absolute Eosinophils 0.3 10^3/uL (0-0.7); Absolute Immature Granulocytes 0.2 10^3/uL (0-0.05); Absolute Lymphocytes 1.4 10^3/uL (1.2-3.4); Absolute Monocytes 1.5 10^3/uL (0.1-0.6); Hematocrit 25.5 % (37.0-47.0); Hemoglobin 7.9 g/dL (12.0-16.0); Mean Corpuscular Hgb 30.2 pg (27.0-31.0); Mean Corpuscular Volume 97.3 fL (81.0-99.0); Mean Platelet Volume 10.5 fL (7.4-10.4); Nucleated Red Blood Cells % 0 %; Platelet Count 359 10^3/uL (130-400); Red Blood Cell Count 2.62 10^6/uL (4.20-5.40); Red Cell Dist. Width 17.9 % (11.5-14.5); White Blood Cell Count 10.4 10^3/uL (4.8-10.8)
[2024-11-16 05:43] LABS: Blood Urea Nitrogen 23 mg/dl (7-17); Calcium 8.6 mg/dl (8.4-10.2); Carbon Dioxide 19 mmol/L (22-30); Chloride 114 mmol/L (98-107); Estimated Creatinine Clearance 36 ml/min; Glucose 85 mg/dl (70-99); Potassium 4.1 mmol/L (3.5-5.1); Sodium 139 mmol/L (135-145); eGFR > 60.00
[2024-11-16] MEDS: SYNTHROID 100 MCG PO (06:10)
[2024-11-16] MEDS: CARDIZEM 30 MG TUBE ×2 (06:10→17:03)
[2024-11-16] MEDS: NEURONTIN 300 MG TUBE (07:41)
[2024-11-16] MEDS: NSS (PRESERVATIVE FREE) 10 ML IV (07:41)
[2024-11-16] MEDS: ENTEREG 12 MG PO ×2 (07:41→20:05)
[2024-11-16] MEDS: PROTONIX IV 40 MG IV (07:41)
[2024-11-16] MEDS: DELTASONE 3 MG PO (07:41)
[2024-11-16] MEDS: DESITIN MAXIMUM STRENGTH PASTE 1 APPLIC TOPICAL ×4 (07:44→23:11)
--- NOTE | 2024-11-16 08:52 | W.PN.HOSP.TC ---
Today's Communication/Plan
-
Continue postop care
Assessment / Plan
Assessment / Plan
Physical exam:
General: Acutely ill
HEENT: Normocephalic, Atraumatic and Moist Mucous Membranes
Respiratory: Clear to Auscultation; Negative Wheezes, Rales or Rhonchi
Cardiac: Regular Rhythm and S1/S2
GI: Soft, nontender nondistended. Postop findings
Skin: Blister-like area neck and chin area
Neuro: Awake, Alert and Oriented, no neurological deficit
Psych: Calm
A/P:
# H/O Mesenteric ischemia
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
- s/p Robotic ileostomy takedown with ileo-rectosigmoid intracorporeal anastomosis, small bowel resection-POD#4
- care per primary
-NG tube removed on 11/15
-Rectal tube in place
-Incentive spirometry
-Pain control
-On Entereg and IV Protonix
-Continue n.p.o. with meds and sips and chips per surgery and follow-up further recommendations
# Chest and face blister
-Continue wound care and using zinc oxide
-Plastic surgery to see her in a couple days
# Subcutaneous Emphysema
-[place] to be related to tracking of CO2 from abdominal insufflation during surgery
-resolving-transfer out of ICU per payroll examiner and primary team.
-extubated at patient and family request on 11/13- would like to be DNI moving forward
-cont o2
# Leukocytosis
- resolved
-WBC 10.4 today
# Paroxysmal Atrial Fibrillation
- rate controlled with diltiazem 30 mg every 6 hours
- holding Eliquis
-Might change doses of Lovenox to full dose if hemoglobin remains stable
-Continue cardiac monitoring
# Metabolic Acidosis
-Improving.
-Bicarb 19 today.
- cont to trend
# PMR
- chronically on prednisone 3mg daily
# Hyperkalemia
- resolved
#Hypokalemia
-Resolved
# GERD
- cont pantoprazole
# Hypothyroidism
- cont levothyroxine
# Hyponatremia
-Resolved
-Sodium 139 today
# Acute Blood Loss Anemia
-Hemoglobin 7.9 today
- partially dilution s/p OR
- transfuse for HB<7
# CKD 3a
- baseline cr @ 1.1
- avoid NT agents
-Creatinine 0.9 today
# Transaminitis
-Trend every so often
CODE- FULL->DNR
DVT prophylaxis-Lovenox
Total time spent on today's encounter was 52 minutes which included time spent in counseling the patient/family regarding diagnosis and treatment plan as listed above, goals of care, and symptom management. Case was discussed with nursing staff,
specialists, and care coordinators/case management. All labs and imaging personally reviewed by me. Remainder the time spent in detailed review of previous records, lab data, imaging, and other medical provider documentation.
Anticipated Discharge: > 48 hours
Subjective/Interval History
-
Date of Service: November 16, 2024
Patient does not voice any new complaints today. No chest pain or shortness of breath.
Objective Data
-
Labs:
Laboratory Results
11/16/24
04:43
WBC 10.4
Hgb 7.9 L
Hct 25.5 L
Plt Count 359
Sodium 139
Potassium 4.1
Chloride 114 H
Carbon Dioxide 19 L
BUN 23 H
Creatinine 0.9
Glucose 85
Calcium 8.6
Vital Signs:
Vital Signs
Temp Pulse Resp BP Pulse Ox
97.7 F 76 18 116/64 96
11/16/24 07:00 11/16/24 08:00 11/16/24 08:00 11/16/24 08:00 11/16/24 08:00
I&O
11/15/24 11/16/24 11/17/24
06:59 06:59 06:59
Intake Total 2049 1640 / 1640
Balance 2049 1640 / 1640
[2024-11-16] MEDS: D5/0.45%NSS with KCL 20 MEQ 1000 IV (11:48)
[2024-11-16] MEDS: TYLENOL PO (12:18)
[2024-11-16] MEDS: CARDIZEM TUBE (12:18)
--- NOTE | 2024-11-16 12:51 | W.PN.GS2 ---
Today's Communication / Plan
-
Will advance to a clear liquid diet, okay for coffee with creamer.
Wound care: Apply Xeroform/Vaseline impregnated gauze over the chest wound. Plastic surgery to evaluate on Sunday, however I suspect the epithelial layer will slough off on its own over the next few weeks.
DVT prophylaxis, SCDs, Lovenox.
Pain control Tylenol, Dilaudid
Will plan to start Eliquis tomorrow with advancement of diet
Assessment / Plan
-
This is a 84-year-old female postoperative day 4 from a robotic ileostomy takedown with ileal rectosigmoid intracorporeal anastomosis, small bowel resection with development of subcutaneous injury over the skin of the upper chest and face
intraoperatively of unclear etiology.
Will advance to a clear liquid diet, okay for coffee with creamer.
Wound care: Apply Xeroform/Vaseline impregnated gauze over the chest wound. Plastic surgery to evaluate on Sunday, however I suspect the epithelial layer will slough off on its own over the next few weeks.
DVT prophylaxis, SCDs, Lovenox.
Pain control Tylenol, Dilaudid
Will plan to start Eliquis tomorrow with advancement of diet
Time Spent
Total Time Spent with Patient (in minutes): 20
Subjective Data
-
Date of Service: November 16, 2024
Interval Events:
No acute events overnight. Slept well. Pain Controlled. Denies Nausea/Vomiting, +bowel function. Tolerating diet.
Objective Data
-
Intake and Output
11/15/24 11/16/24 11/17/24
06:59 06:59 06:59
Intake Total 2049 1640 / 1710 280 / 280
Balance 2049 1640 / 1710 280 / 280
Intake:
IV fluids (Total) 1909 1610 / 1679 280 / 280
D5/0.45%NSS with KCL 20 MEQ 20 910 / 980 1610 / 1680 280 / 280
meq In 1,000 ml @ 70 mls/hr IV
.[id number] DAVID Rx#:[id number]
Sterile Water For Injection 1000 / 1000
1000 ml 1,000 ml @ 100 mls/hr
IV .[id number] DAVID with Sodium
Bicarbonate 150 Meq Rx#:
[id number]
IV piggybacks 50 / 50
Feeding tube flush amount 60 / 60
Amount instilled into GI Tube (
Total)
[place] Sump
Other:
How many times incontinent 1 1
SMALL amount urine
How many times incontinent 1 1
MODERATE amount urine
How many times incontinent 1
SATURATED amount urine
Vital Signs
Temp Pulse Resp BP Pulse Ox
97.9 F 76 18 116/64 96
11/16/24 11:00 11/16/24 08:00 11/16/24 08:00 11/16/24 08:00 11/16/24 08:00
Lab Results
11/16/24 04:43
11/16/24 04:43
Calcium 8.6 mg/dl (8.4-10.2) 11/16/24 04:43
Phosphorus 4.3 mg/dl (2.5-4.5) 11/13/24 04:35
Magnesium 2.1 mg/dl (1.6-2.3) 11/13/24 04:35
Total Bilirubin 1.0 mg/dl (0.2-1.3) 11/13/24 04:35
AST 37 U/L (14-36) H 11/13/24 04:35
ALT 45 U/L (0-35) H 11/13/24 04:35
Alkaline Phosphatase 299 U/L (38-126) H 11/13/24 04:35
Total Protein 4.7 g/dl (6.3-8.2) L 11/13/24 04:35
Albumin 2.6 g/dl (3.5-5.0) L 11/13/24 04:35
Physical Exam
-
GENERAL/NEURO: Awake, Alert, no distress
CHEST: Unlabored breathing on RA, Vaseline gauze replaced over chest bruising sites. Skin intact, patchy areas of necrosis
ABDOMEN: Soft, Non-Tender, Non-Distended, incisions clean dry and intact. Rectal catheter in place with liquid brown effluent
EXTREMITIES: warm, well perfused, no jaundice, no cyanosis, no edema
Patient has a barros catheter: No
Patient has a central line: No
--- NOTE | 2024-11-16 13:32 | PTCARENOTE ---
Rec'd pt at 0700. Pt IMU level of care. Pt AAOx3, follows commands, BISHOP. Pt states that she 'feels clearer today'. Monitor SR with 1st degree AVB. Lungs dim, pox 94% RA. +hypo BS, abd dressing intact. Incont urine, pericare performed. Pt OOB to
chair with PT, OOB ~2hrs, back to bed with assist of 2. Pt for transfer to tele. Chest with Vaseline gauze in place. and son in to visit, updated.
[2024-11-16] MEDS: LOVENOX 40 MG SC (17:04)
[2024-11-16] MEDS: NEURONTIN 300 MG PO (20:12)
[2024-11-17] MEDS: D5/0.45%NSS with KCL 20 MEQ 1000 IV (02:28)
[2024-11-17 03:10] VITALS: BP 116/73
[2024-11-17] MEDS: SYNTHROID 100 MCG PO (04:58)
[2024-11-17] MEDS: TYLENOL 650 MG PO ×5 (04:58→20:40)
[2024-11-17 06:00] VITALS: BMI 24.7
--- NOTE | 2024-11-17 07:12 | W.PN.HOSP.TC ---
Addendum entered and electronically signed by Geraldo Tamez MD 11/18/24 00:04:
Attending Addendum-
I saw and evaluated the patient. I reviewed the resident�s note and agree with findings and plan as documented in the resident�s note. Sub: Feels weak but overall feels markedly improved. Denies pain @ wound. present during exam. Denies
fevers chills abd pain NV. Passed liquid stool and flatus. Full 12 point ROS negative except as documented Exam- vitals reviewed in EMR GEN-NAD Heart RRR chest- crepitus palpated superior lat thorax b/l wound covered red healing. HEENT-NC AT lungs
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
Plan:
# H/O Mesenteric ischemia s/p Ileostomy s/p total colectomy on 12/27/23
- s/p Robotic ileostomy takedown with ileo-rectosigmoid intracorporeal anastomosis, small bowel resection-POD#5
- care per primary
- cont entereg, proph ertapenem x 48 hours-completed, pain control
- passing flatus and liquid stools- cont rectal trumpet for now
- advance diet
# Subcutaneous Emphysema
-resolving
-extubated at patient and family request on 11/13- DNI moving forward
# Chest Blister
- healing well
- plastics c/s today
- cont wound care
# Leukocytosis
- resolved
- repeat CBC in am
# Paroxysmal Atrial Fibrillation
- rate controlled
- restart Eliquis
- h and h stable
- cont diltiazem
# Metabolic Acidosis
- cont to monitor
- repeat BMP in am
# PMR
- chronically on prednisone 3mg daily
- restart prednisone
# Acute on Chronic Hyperkalemia
- resolved
- hold Lokelma
- repeat BMP in am
# GERD
- cont pantoprazole
# Hypothyroidism
- cont levothyroxine
# Hyponatremia
- hypovolemic
- resolved
# Acute Blood Loss Anemia
- stable
- transfuse for HB<7
# CKD 3a
- baseline cr @ 1.1
- avoid NT agents
- check BMP in am
* Will continue to follow daily until DC
CODE- FULL->DNR
DVTp-start eliquis
Dispo per primary but will require SNF on dc
Time spent coordinating care, review of plan of care with resident, personally reviewed records in EMR, med rec, consults, notes, labs, radiology, d/w nursing and � 53 mins
Original Note:
Today's Communication/Plan
-
Full liquids today
Maintain rectal tube for now
Awaiting plastic surgery consult
Resume Eliquis home dose 2.5 mg twice daily
Assessment / Plan
Assessment / Plan
84-year-old female with a past medical history of atrial fibrillation on Eliquis, bowel ischemia status post colectomy with ileostom in 12/22, stroke, hypertension, hyperlipidemia, hypothyroidism, hyperkalemia, and polymyalgia rheumatica on chronic
prednisone underwent a 6 hour reported closure of her ileostomy today. She developed subcutaneous emphysema around lower neck and anterior upper chest intraoperative.
A/P:
# H/O Mesenteric ischemia
-Ileostomy s/p total colectomy on 12/27/23
-s/p Robotic ileostomy takedown with ileo-rectosigmoid intracorporeal anastomosis, small bowel resection-POD#5
-NG tube removed on 11/15
-Rectal tube in place
-Incentive spirometry
-On Entereg and IV Protonix
-Diet advanced to full liquid
-Incision healing as expected
-Patient able to pass flatus and liquid stools via rectal tube.
#Chest and face blister
-Continue wound care
-Dr. Denis with plastic surgery to see today
# Subcutaneous Emphysema
-[place] to be related to tracking of CO2 from abdominal insufflation during surgery
-Significant improvement
# Leukocytosis
-resolved
-WBC 9.5 on 11/17
# Paroxysmal Atrial Fibrillation
-rate controlled with diltiazem 30 mg every 6 hours
-Eliquis; potential resume today ; discussed with Dr. López
-Continue cardiac monitoring
# Metabolic Acidosis
-Improving.
-Bicarb 19 on 11/16; labs ordered in the am.
# PMR
-chronically on prednisone 3mg daily
#Hypokalemia
-Resolved
# GERD
-cont pantoprazole 40 mg IV daily
# Hypothyroidism
-cont levothyroxine
# Hyponatremia
-Resolved
-Sodium 139 today
# Acute Blood Loss Anemia
-Hemoglobin 7.7 on 11/17; stable
-partially dilution s/p OR
-transfuse for HB<7
# CKD 3a
-baseline cr @ 1.1
-avoid NT agents
-Creatinine 0.9 today
# Transaminitis
-Trend every so often
CODE- FULL->DNR
DVT prophylaxis-Eliquis
Anticipated Discharge: 24 - 48 hours
Subjective/Interval History
-
Date of Service: November 17, 2024
Patient sitting in the bed. Afebrile VSS. States she is feeling much better today.
Objective Data
-
Vital Signs:
Vital Signs
Temp Pulse Resp BP Pulse Ox
98.0 F 75 16 116/73 95
11/17/24 03:10 11/17/24 03:10 11/17/24 03:10 11/17/24 03:10 11/17/24 03:10
I&O
11/16/24 11/17/24 11/18/24
06:59 06:59 06:59
Intake Total 1640 / 1710 960 / 960
Output Total 650 / 650
Balance 1640 / 1710 310 / 310
Review of Systems
-
History Source: Patient
Constitutional: Reports No Symptoms
Respiratory: Reports No Symptoms
Cardiac: Reports No Symptoms
Abdomen/GI: Reports No Symptoms
Genitourinary: Reports No Symptoms
Skin: Reports Other (erythema around anterior neck and upper chest)
Neuro: Reports No Symptoms
Physical Exam
-
General: Well Nourished, No Apparent Distress, Comfortable and Conversant
HEENT: Normocephalic and Atraumatic
Respiratory: Clear to Auscultation
Cardiac: Regular Rhythm and S1/S2
GI: Soft, Nontender, Nondistended and Other (Abdominal incision clean dry and intact. No discharge. Rectal tube in place)
Musculoskeletal: No Edema
Skin: Other (resolving erythema around neck and upper chest, nonblanchable ecchymotic)
Neuro: Awake, Alert and Oriented
Psych: Calm
Data Reviewed
-
Labs: Labs Reviewed by me, Discussed with Physician and Discussed with Patient
Old Records: Reviewed
[2024-11-17 07:20] VITALS: BP 123/72
--- NOTE | 2024-11-17 08:56 | W.PN.CRS1 ---
Today's Communication / Plan
-
fulls
plastic sx consult
Assessment/Plan
-
POD#5 robotic ileostomy takedown with ileo-rectosigmoid intracorporeal anastomosis, small bowel resection x1
Labs pending
Vitals normal
-Advance diet to fulls with ensure
-D/C IVFs when tolerating po
-Incentive spirometry q1h while awake.
-Appreciate wound care. Discussed Xeroform on chest blister. Unsure of cause. Dr. Denis with plastic surgery to see today.
-DVT prophylaxis: TEDS/SCDS in place. Lovenox ordered.
-OR pathology pending
-Pain control: Tylenol standing, Dilaudid PRN
-Appreciate logistics assistant/hospitalist
-Appreciate wound nurse. Desitin to buttocks area 4 times daily.
-On Eliquis at home, 2.5mg BID. Holding for now. When hemoglobin stabilizes, will start therapeutic dose of Lovenox.
Subjective Data
Procedure
11/12/2024- Robotic ileostomy takedown with ileo-rectosigmoid intracorporeal anastomosis, small bowel resection x1
Subjective Data
Date of Service: November 17, 2024
Patient states she is having loose stools. She has no pain. She denies nausea or vomiting. She was out of bed one time yesterday.
Objective Data
-
Vital Signs
Temp Pulse Resp BP Pulse Ox
97.4 F 77 16 123/72 93
11/17/24 07:20 11/17/24 07:20 11/17/24 07:20 11/17/24 07:20 11/17/24 07:20
Intake & Output
11/16/24 11/17/24 11/18/24
06:59 06:59 06:59
Intake Total 1640 / 1710 960 / 960
Output Total 650 / 650
Balance 1640 / 1710 310 / 310
Intake:
Oral fluids 120 / 120
IV fluids (Total) 1609 840 / 840
D5/0.45%NSS with KCL 20 MEQ 20 1609 630 / 630
meq In 1,000 ml @ 70 mls/hr IV
.[id number] [facility] Rx#:[id number]
Amount instilled into GI Tube (
Total)
[place] Sump
Output:
Liquid stool amount 650 / 650
Rectum 650 / 650
Other:
Number of approximated SMALL 1
amounts of urine
How many times incontinent 1
SMALL amount urine
How many times incontinent 1
MODERATE amount urine
How many times incontinent 1 1
SATURATED amount urine
Physical Exam
-
General: No Acute Distress and AOx3
Abdomen: Soft, Non Distended and Non Tender
Rectal: Other (Rectal catheter in place with liquid green/brown output)
Skin: Warm, Dry and Other (chest bruising sites, skin intact, patchy areas of necrosis, incisions c/d/i.)
[2024-11-17] MEDS: DELTASONE 3 MG PO (09:19)
[2024-11-17] MEDS: CARDIZEM CD 120 MG PO (09:19)
[2024-11-17] MEDS: NEURONTIN 300 MG PO ×3 (09:19→20:41)
[2024-11-17] MEDS: ENTEREG 12 MG PO ×2 (09:20→20:40)
[2024-11-17] MEDS: NSS (PRESERVATIVE FREE) 10 ML IV (09:20)
[2024-11-17] MEDS: PROTONIX IV 40 MG IV (09:21)
[2024-11-17] MEDS: DESITIN MAXIMUM STRENGTH PASTE 1 APPLIC TOPICAL ×4 (09:27→20:42)
[2024-11-17 09:32] LABS: Hematocrit 24.6 % (37.0-47.0); Hemoglobin 7.7 g/dL (12.0-16.0); Mean Corp Hgb Conc. 31.3 g/dL (33.0-37.0); Mean Corpuscular Hgb 29.5 pg (27.0-31.0); Mean Corpuscular Volume 94.3 fL (81.0-99.0); Platelet Count 363 10^3/uL (130-400); Red Blood Cell Count 2.61 10^6/uL (4.20-5.40); Red Cell Dist. Width 17.8 % (11.5-14.5); White Blood Cell Count 9.5 10^3/uL (4.8-10.8)
--- NOTE | 2024-11-17 10:11 | CM ---
Reviewed the chart notes and spoke with the patient and her spouse at the bedside. Plastic surgery consult pending. Per PT note, patient is a moderate to maximum assist for mobility and recommend SNF/rehab at discharge. Referrals were previously
sent via [facility]. CM continues to be available to patient/family and is monitoring medical plan for needs at discharge.
Plan: Discharge to SNF/rehab once medically stable and bed found. No precert required.
[2024-11-17 10:19] LABS: Blood Urea Nitrogen 17 mg/dl (7-17); Calcium 8.6 mg/dl (8.4-10.2); Carbon Dioxide 17 mmol/L (22-30); Chloride 110 mmol/L (98-107); Estimated Creatinine Clearance 41 ml/min; Glucose 87 mg/dl (70-99); Potassium 4.3 mmol/L (3.5-5.1); Sodium 135 mmol/L (135-145); eGFR > 60.00
[2024-11-17 11:10] VITALS: BP 131/64
--- NOTE | 2024-11-17 11:45 | CON.PS ---
Medical History
Allergies / Home Medications
Allergy/AdvReac Type Severity Reaction Status Date / Time
amlodipine Allergy Nausea Verified 11/12/24 06:19
codeine Allergy Nausea / Verified 11/12/24 06:19
Vomiting
doxycycline Allergy Hives Verified 11/12/24 06:19
hydrocodone [From Vicodin] Allergy Vomiting Verified 11/12/24 06:19
metoprolol [From Lopressor] Allergy Dizzy Verified 11/12/24 06:19
sulfamethoxazole Allergy Rash Verified 11/12/24 06:19
[From Bactrim]
trimethoprim [From Bactrim] Allergy Rash Verified 11/12/24 06:19
�Medication �Instructions �Recorded �Confirmed �Type
pantoprazole 40 mg tablet,delayed 40 mg PO DAILY GERD 30 days #30 05/27/24 11/12/24 Rx
release tabs
sodium zirconium cyclosilicate 5 5 g PO DAILY hyperkalemia #0 ea 06/13/24 11/12/24 Rx
gram oral powder packet (Lokelma)
ascorbic acid (vitamin C) 500 mg 500 mg PO DAILY Supplement 30 days 06/20/24 11/12/24 Rx
tablet (Vitamin C) #30 tabs
diltiazem HCl 120 mg capsule,24 120 mg PO DAILY Afib 10/04/24 11/12/24 History
hr,extended release
gabapentin 300 mg capsule 300 mg PO TID neuropathic pain 10/04/24 11/12/24 History
levothyroxine 100 mcg tablet 100 mcg PO DAILY Thyroid 10/04/24 11/12/24 History
(Synthroid)
prednisone 1 mg tablet 3 mg PO DAILY Anti-Inflammatory 10/04/24 11/12/24 History
acetaminophen 500 mg tablet 1,000 mg PO TID 11/04/24 11/12/24 History
acetic acid 1 dose topical DAILY 3% 11/04/24 11/04/24 History
solution,arm skin tear
apixaban 2.5 mg tablet 2.5 mg PO BID 11/04/24 11/12/24 History
bisacodyl 10 mg rectal suppository 10 mg [place] DAILY PRN if no BM 8h 11/04/24 11/04/24 History
(Dulcolax (bisacodyl)) after MOM
cholecalciferol (vitamin D3) 50 50 mcg PO DAILY 11/04/24 11/12/24 History
mcg (2,000 unit) capsule (Vitamin
D3)
magnesium hydroxide 400 mg/5 mL 30 ml PO DAILY PRN if no BM x 2 11/04/24 11/04/24 History
oral suspension (Milk of Magnesia) days
midodrine 2.5 mg tablet 2.5 mg PO TID HOLD SBP >120 11/04/24 11/12/24 History
sodium phosphates 19 gram-7 197 ml [place] PRN PRN no BM 8h after 11/04/24 11/04/24 History
gram/118 mL enema (Fleet Enema) suppository
zinc oxide 20 % topical ointment 1 applic topical TID sacrum 11/04/24 11/12/24 History
enoxaparin 40 mg/0.4 mL 40 mg [place] DAILY 11/12/24 11/12/24 History
subcutaneous syringe (Lovenox)
metronidazole 500 mg tablet 500 mg PO Q8H 11/12/24 11/12/24 History
neomycin 500 mg tablet 1 g PO TID 11/12/24 11/12/24 History
Physical Exam
Vital Signs
Temp 97.9 F 11/19/24 15:35
Temp route: Axillary 11/19/24 15:35
Pulse 79 11/19/24 15:35
Rhythm: Normal sinus rhythm 11/17/24 08:10
With- First Degree Heart Block 11/17/24 08:10
Resp Rate 16 11/19/24 15:35
Blood pressure 144/67 11/19/24 15:35
Blood pressure extremity used: Right upper arm 11/19/24 15:35
Position: Lying 11/19/24 15:35
MAP (cuff-Tiffany Monitor) 90 11/16/24 14:00
SaO2 98 11/19/24 15:35
Nasal Cannula flow liters per minute 2 11/15/24 07:50
Oxygen Mode of Delivery Room air 11/19/24 15:35
Oxygen Mode of Delivery: Ventilator 11/12/24 16:45
Flow liters per minute # 40 11/12/24 16:30
% Oxygen delivered 40 11/12/24 20:08
Pulse Ox at Rest 97 11/18/24 13:47
Can the patient verbally communicate their pain? Yes 11/19/24 08:00
Pain scale rating: Pt states unable to rate 11/15/24 14:52
Actual Weight 124 lb 11.2 oz 11/19/24 06:00
Body Mass Index (BMI) 22.8 11/19/24 06:00
Supine- Blood Pressure 108/56 11/16/24 09:48
Supine- Pulse 72 11/16/24 09:48
Sitting- Blood Pressure 120/59 11/18/24 13:47
Sitting- Pulse 73 11/18/24 13:47
Heart rate after activity 87 11/14/24 12:06
Blood pressure after activity 114/92 11/14/24 12:06
Oxygen Saturation with Activity 94 11/16/24 09:48
Lab Results
11/19/24 07:11
11/19/24 07:11
[2024-11-17 15:23] VITALS: BP 141/70
[2024-11-17] MEDS: D5/0.45%NSS with KCL 20 MEQ IV (16:15)
[2024-11-17 19:00] VITALS: BP 138/66
[2024-11-17] MEDS: ELIQUIS 2.5 MG PO (20:40)
[2024-11-17 23:00] VITALS: BP 151/88
[2024-11-18] VITALS (7 sets, daily range): BP systolic 116–168; BP diastolic 59–89; PULSE 73–76; O2SAT 97; BMI 24.6
[2024-11-18] MEDS: TYLENOL 650 MG PO ×6 (00:20→20:38)
[2024-11-18] MEDS: SYNTHROID 100 MCG PO (05:18)
--- NOTE | 2024-11-18 07:01 | W.PN.HOSP.TC ---
Addendum entered and electronically signed by Geraldo Tamez MD 11/18/24 23:12:
Attending Addendum-
I saw and evaluated the patient. I reviewed the resident�s note and agree with findings and plan as documented in the resident�s note. Sub: Denies pain @ chest wound. Denies fevers chills abd pain NV. Passing liquid stool and flatus. Per nursing a
few solid chunks present. Full 12 point ROS negative except as documented Exam- vitals reviewed in EMR GEN-NAD Heart RRR chest- crepitus palpated superior lat thorax b/l wound covered red healing. HEENT-NC AT lungs clear abd soft pos BS LE no edema
SAMPLE TESTER bladder
Plan:
# H/O Mesenteric ischemia s/p Ileostomy and total colectomy on 12/27/23
- s/p Robotic ileostomy takedown with ileo-rectosigmoid intracorporeal anastomosis, small bowel resection-POD#6
- care per primary
- cont entereg, proph ertapenem x 48 hours-completed, pain control
- passing flatus and liquid stools- DC rectal trumpet
- advance diet to LR
# Subcutaneous Emphysema
-resolving
-extubated at patient and family request on 11/13- DNI moving forward
# Chest Blister
- healing well
- plastics c/s appreciate input
- cont wound care
# Leukocytosis
- was resolved possibly stress rxn?
- repeat CBC in am
# Paroxysmal Atrial Fibrillation
- rate controlled
- cont Eliquis
- h and h stable
- cont diltiazem
# Metabolic Acidosis
- cont to monitor
- repeat BMP in am
# PMR
- cont chronic prednisone 3mg daily
# Acute on Chronic Hyperkalemia
- resolved
- DC Lokelma
- repeat BMP in am
# GERD
- cont pantoprazole
# Hypothyroidism
- cont levothyroxine
# Hyponatremia
- hypovolemic
- resolved
# Acute Blood Loss Anemia
- stable
- transfuse for HB<7
# CKD 3a
- baseline cr @ 1.1
- avoid NT agents
- check BMP in am
* Will continue to follow daily until DC
CODE- FULL->DNR
DVTp- eliquis
Dispo per primary SNF on dc- medically stable for DC in am
Time spent coordinating care, review of plan of care with resident, personally reviewed records in EMR, med rec, consults, notes, labs, radiology, d/w nursing primary� 53 mins
Original Note:
Today's Communication/Plan
-
Continue current management
Discontinue rectal time After clearance from colorectal
Advance diet to low residue
Repeat labs in the a.m.
Likely dispo tomorrow
Assessment / Plan
Assessment / Plan
84-year-old female with a past medical history of atrial fibrillation on Eliquis, bowel ischemia status post colectomy with ileostom in 12/22, stroke, hypertension, hyperlipidemia, hypothyroidism, hyperkalemia, and polymyalgia rheumatica on chronic
prednisone underwent a 6 hour reported closure of her ileostomy today. She developed subcutaneous emphysema around lower neck and anterior upper chest intraoperative.
A/P:
# H/O Mesenteric ischemia
-Ileostomy s/p total colectomy on 12/27/23
-s/p Robotic ileostomy takedown with ileo-rectosigmoid intracorporeal anastomosis, small bowel resection-POD#6
-NG tube removed on 11/15
-Rectal tube in place; discontinue after clearance from colorectal
-Incentive spirometry
-On Entereg and IV Protonix
-Diet advance to low residue
-Incision healing as expected
-Patient able to pass flatus and liquid stools via rectal trumpet.
-Encourage OOB
#Chest and face blister
-Continue wound care
-Patient reports that plastic surgeon recommended use of Silvadene and did not recommend any other intervention at this time.
# Subcutaneous Emphysema
-[place] to be related to tracking of CO2 from abdominal insufflation during surgery
-Significant improvement
# Leukocytosis
-WBC 12.7 today; slight elevation
-Repeat in the a.m.
# Paroxysmal Atrial Fibrillation
-rate controlled with diltiazem 30 mg every 6 hours
-Eliquis; resumed on 11/17/24
-Continue cardiac monitoring
# Metabolic Acidosis
-Improving.
# PMR
-chronically on prednisone 3mg daily
#Hypokalemia
-Resolved
# GERD
-cont pantoprazole 40 mg IV daily
# Hypothyroidism
-cont levothyroxine
# Hyponatremia
-Resolved
# Acute Blood Loss Anemia
-Hemoglobin 8.1; stable
-partially dilution s/p OR
-transfuse for HB<7
# CKD 3a
-baseline cr @ 1.1
-avoid NT agents
-Creatinine 0.9 today
# Transaminitis
-Trend every so often
CODE- FULL->DNR
DVT prophylaxis-Eliquis
Likely discharged tomorrow; SNF
Anticipated Discharge: Within 24 hours
Subjective/Interval History
-
Date of Service: November 18, 2024
States she has been feeling well and was able to sleep okay. AF VSS
Objective Data
-
Labs:
Laboratory Results
11/18/24
06:00
WBC Pending
Hgb Pending
Hct Pending
Plt Count Pending
Sodium Pending
Potassium Pending
Chloride Pending
Carbon Dioxide Pending
BUN Pending
Creatinine Pending
Glucose Pending
Calcium Pending
Vital Signs:
Vital Signs
Temp Pulse Resp BP Pulse Ox
97.9 F 85 18 151/88 96
11/17/24 23:00 11/17/24 23:00 11/17/24 23:00 11/17/24 23:00 11/17/24 23:00
I&O
11/17/24 11/18/24 11/19/24
06:59 06:59 06:59
Intake Total 960 / 960 2620 / 2620
Output Total 650 / 650 1750 / 1750
Balance 310 / 310 870 / 870
Review of Systems
-
History Source: Patient
Constitutional: Reports No Symptoms
Respiratory: Reports No Symptoms
Cardiac: Reports No Symptoms
Abdomen/GI: Reports No Symptoms
Genitourinary: Reports No Symptoms
Skin: Reports Other (erythema around anterior neck and upper chest)
Neuro: Reports No Symptoms
Physical Exam
-
General: Well Nourished, No Apparent Distress, Comfortable and Conversant
HEENT: Normocephalic and Atraumatic
Respiratory: Clear to Auscultation
Cardiac: Regular Rhythm and S1/S2
GI: Soft, Nontender, Nondistended and Other (Abdominal incision clean dry and intact. No discharge. Rectal tube in place)
Musculoskeletal: No Edema
Skin: Other (resolving erythema around neck and upper chest, nonblanchable ecchymotic)
Neuro: Awake, Alert and Oriented
Psych: Calm
Data Reviewed
-
Labs: Labs Reviewed by me, Discussed with Physician and Discussed with Patient
[2024-11-18] MEDS: NSS (PRESERVATIVE FREE) 10 ML IV (09:06)
[2024-11-18] MEDS: ENTEREG 12 MG PO ×2 (09:06→20:38)
[2024-11-18] MEDS: CARDIZEM CD 120 MG PO (09:07)
[2024-11-18] MEDS: DELTASONE 3 MG PO (09:07)
[2024-11-18] MEDS: PROTONIX IV 40 MG IV (09:07)
[2024-11-18] MEDS: NEURONTIN 300 MG PO ×3 (09:07→20:38)
[2024-11-18] MEDS: SILVADENE 1 APPLIC TOPICAL (09:08)
[2024-11-18] MEDS: ELIQUIS 2.5 MG PO ×2 (09:08→20:38)
[2024-11-18 09:20] LABS: % Basophils 0.6 % (0-2); % Eosinophils 1.9 % (0-6); % Lymphocytes 9.4 % (20.5-51.1); % Monocytes 11.1 % (1.7-9.3); Absolute Basophils 0.1 10^3/uL (0-0.2); Absolute Eosinophils 0.2 10^3/uL (0-0.7); Absolute Immature Granulocytes 0.6 10^3/uL (0-0.05); Absolute Lymphocytes 1.2 10^3/uL (1.2-3.4); Absolute Monocytes 1.4 10^3/uL (0.1-0.6); Absolute Neutrophils 9.1 10^3/uL (1.4-6.5); Hematocrit 25.9 % (37.0-47.0); Hemoglobin 8.1 g/dL (12.0-16.0); Mean Corp Hgb Conc. 31.3 g/dL (33.0-37.0); Mean Corpuscular Hgb 29.3 pg (27.0-31.0); Mean Corpuscular Volume 93.8 fL (81.0-99.0); Nucleated Red Blood Cells % 0.2 %; Platelet Count 429 10^3/uL (130-400); Red Blood Cell Count 2.76 10^6/uL (4.20-5.40); Red Cell Dist. Width 17.9 % (11.5-14.5); White Blood Cell Count 12.7 10^3/uL (4.8-10.8)
--- NOTE | 2024-11-18 09:53 | W.PN.CRS1 ---
Today's Communication / Plan
-
low residue
d/c rectal tube
silvadene to wounds daily
Assessment/Plan
-
POD#6 robotic ileostomy takedown with ileo-rectosigmoid intracorporeal anastomosis, small bowel resection x1
WBC 12.7 (9.5), Hgb 8.1 (7.7)
Vitals normal
-Advance diet to fulls with ensure
-Incentive spirometry q1h while awake.
-Appreciate wound care. Discussed Xeroform on chest blister. Unsure of cause. Dr. Denis saw patient yesterday, recommends Silvadene to wound daily.
-DVT prophylaxis: TEDS/SCDS in place. Lovenox ordered.
-OR pathology pending
-Pain control: Tylenol standing, Ultram PRN
-Appreciate packing machine can feeder/hospitalist
-Appreciate wound nurse. Desitin to buttocks area 4 times daily.
-Discontinue rectal tube.
-Eliquis restarted 11/17
Subjective Data
Procedure
11/12/2024- Robotic ileostomy takedown with ileo-rectosigmoid intracorporeal anastomosis, small bowel resection x1
Subjective Data
Date of Service: November 18, 2024
Patient states she is feeling well today. She tolerated fulls. She is not that hungry but states 'she never is'. She is having loose stool and gas. She denies nausea or vomiting.
Objective Data
-
Vital Signs
Temp Pulse Resp BP Pulse Ox
97.7 F 74 16 137/67 100
11/18/24 07:23 11/18/24 09:07 11/18/24 07:23 11/18/24 09:07 11/18/24 07:23
Intake & Output
11/17/24 11/18/24 11/19/24
06:59 06:59 06:59
Intake Total 960 / 960 2620 / 2620
Output Total 650 / 650 1750 / 1750
Balance 310 / 310 870 / 870
Intake:
Oral fluids 120 / 120 1920 / 1920
IV fluids (Total) 840 / 840 700 / 700
D5/0.45%NSS with KCL 20 MEQ 20 630 / 630
meq In 1,000 ml @ 70 mls/hr IV
.[id number] [facility] Rx#:[id number]
Output:
Liquid stool amount 650 / 650 500 / 500
Rectum 650 / 650 500 / 500
Urine, Voided 1250 / 1250
Other:
Number of approximated SMALL 1
amounts of urine
Number of approximated MODERATE 1
amounts of urine
How many times incontinent 1
SATURATED amount urine
Lab Results
11/18/24 09:02
Physical Exam
-
General: No Acute Distress and AOx3
Abdomen: Soft, Non Distended and Non Tender
Skin: Warm, Dry and Other (chest bruising sites, skin intact, patchy areas of necrosis, incisions c/d/i)
Incision: Clear, Dry, Intact
[2024-11-18 09:57] LABS: Blood Urea Nitrogen 16 mg/dl (7-17); Calcium 8.7 mg/dl (8.4-10.2); Carbon Dioxide 19 mmol/L (22-30); Chloride 111 mmol/L (98-107); Estimated Creatinine Clearance 36 ml/min; Glucose 106 mg/dl (70-99); Potassium 4.7 mmol/L (3.5-5.1); Sodium 136 mmol/L (135-145); eGFR > 60.00
[2024-11-18] MEDS: DESITIN MAXIMUM STRENGTH PASTE 1 APPLIC TOPICAL ×3 (13:14→20:38)
--- NOTE | 2024-11-18 14:53 | CM ---
Addendum entered by Rina Myers RN 11/18/24 16:16:
IMM reviewed and placed on chart.
Original Note:
Reviewed the chart notes and spoke with the patient's daughter Theresa via telephone. Discussed that [facility] has no beds, voice message left for Nia KAILYN. Additional referrals sent out in [facility]. CM continues to be available to
patient/family and is monitoring medical plan for needs at discharge.
Plan: Discharge to SNF/rehab once bed found. No precert required.
[2024-11-18] MEDS: DESITIN MAXIMUM STRENGTH PASTE TOPICAL (18:22)
[2024-11-19] MEDS: TYLENOL PO ×2 (00:52→05:03)
--- NOTE | 2024-11-19 02:38 | DOWNTIME ---
There was a [employer] Client Elevator Examiner And Adjuster Downtime on 11/19/2024 from 0100 to 11/19/2023 at 0235 . Downtime documentation of patient's care, including medication administrations, has been reconciled in the electronic record per guidelines. Refer to the
patient's paper chart under the miscellaneous tab to see printed paper medication records and downtime forms.
[2024-11-19 06:00] VITALS: BMI 22.8
[2024-11-19] MEDS: SYNTHROID 100 MCG PO (06:23)
[2024-11-19 07:23] VITALS: BP 138/70
[2024-11-19 07:24] LABS: Hematocrit 24.7 % (37.0-47.0); Hemoglobin 7.9 g/dL (12.0-16.0); Mean Corpuscular Hgb 29.9 pg (27.0-31.0); Mean Corpuscular Volume 93.6 fL (81.0-99.0); Mean Platelet Volume 9.8 fL (7.4-10.4); Platelet Count 406 10^3/uL (130-400); Red Blood Cell Count 2.64 10^6/uL (4.20-5.40); Red Cell Dist. Width 17.9 % (11.5-14.5)
[2024-11-19 08:10] LABS: Blood Urea Nitrogen 16 mg/dl (7-17); Calcium 8.9 mg/dl (8.4-10.2); Carbon Dioxide 22 mmol/L (22-30); Chloride 111 mmol/L (98-107); Estimated Creatinine Clearance 36 ml/min; Glucose 75 mg/dl (70-99); Potassium 4.2 mmol/L (3.5-5.1); Sodium 136 mmol/L (135-145); eGFR > 60.00
--- NOTE | 2024-11-19 08:14 | W.PN.HOSP.TC ---
Today's Communication/Plan
-
IV Protonix transition to p.o. Protonix 40 mg daily
Preparation H cream for rectal burning/irritation
Discharge to rehab; case aide looking for availability/placement
Assessment / Plan
Assessment / Plan
84-year-old female with a past medical history of atrial fibrillation on Eliquis, bowel ischemia status post colectomy with ileostom in 12/22, stroke, hypertension, hyperlipidemia, hypothyroidism, hyperkalemia, and polymyalgia rheumatica on chronic
prednisone underwent a 6 hour reported closure of her ileostomy today. She developed subcutaneous emphysema around lower neck and anterior upper chest intraoperative.
A/P:
# H/O Mesenteric ischemia
-Ileostomy s/p total colectomy on 12/27/23
-s/p Robotic ileostomy takedown with ileo-rectosigmoid intracorporeal anastomosis, small bowel resection-POD#6
-NG tube removed on 11/15
-Incentive spirometry
-On Entereg
-IV Protonix transition to p.o.
-Diet advance to low residue
-Incision healing as expected
-Patient able to pass flatus and liquid stools ; 4 for loose stool since yesterday's but noticed burning pain; ordered Preparation H cream
-Encourage OOB; will need rehab; case aide working for placement
#Chest and face blister
-Continue wound care
-Patient reports that plastic surgeon recommended use of Silvadene and did not recommend any other intervention at this time.
# Subcutaneous Emphysema
-[place] to be related to tracking of CO2 from abdominal insufflation during surgery
-Significant improvement
# Leukocytosis
-Trending down
-Repeat in the a.m.
# Paroxysmal Atrial Fibrillation
-rate controlled with diltiazem 30 mg every 6 hours
-Eliquis; resumed on 11/17/24
-Continue cardiac monitoring
# Metabolic Acidosis
-Improving.
# PMR
-chronically on prednisone 3mg daily
#Hypokalemia
-Resolved
# GERD
-cont pantoprazole 40 mg IV daily
# Hypothyroidism
-cont levothyroxine
# Hyponatremia
-Resolved
# Acute Blood Loss Anemia
-Hemoglobin 8.1; stable
-partially dilution s/p OR
-transfuse for HB<7
# CKD 3a
-baseline cr @ 1.1
-avoid NT agents
-Creatinine 0.9 today
# Transaminitis
-Trend every so often
CODE- FULL->DNR
DVT prophylaxis-Eliquis
Likely discharged tomorrow; SNF; case aide looking for placement
Anticipated Discharge: Within 24 hours
Subjective/Interval History
-
Date of Service: November 19, 2024
Reports some burning with bowel movements
Objective Data
-
Labs:
Laboratory Results
11/19/24
07:11
WBC 11.0 H
Hgb 7.9 L
Hct 24.7 L
Plt Count 406 H
Sodium 136
Potassium 4.2
Chloride 111 H
Carbon Dioxide 22
BUN 16
Creatinine 0.9
Glucose 75
Calcium 8.9
Vital Signs:
Vital Signs
Temp Pulse Resp BP Pulse Ox
97.4 F 78 16 138/70 99
11/19/24 07:23 11/19/24 07:23 11/19/24 07:23 11/19/24 07:23 11/19/24 07:23
I&O
11/18/24 11/19/24 11/20/24
06:59 06:59 06:59
Intake Total 2620 / 2620 1740 / 1740
Output Total 1750 / 1750
Balance 870 / 870 1740 / 1740
Review of Systems
-
History Source: Patient
Constitutional: Reports No Symptoms
Respiratory: Reports No Symptoms
Cardiac: Reports No Symptoms
Abdomen/GI: Reports No Symptoms
Genitourinary: Reports No Symptoms
Skin: Reports Other (erythema around anterior neck and upper chest)
Neuro: Reports No Symptoms
Physical Exam
-
General: Well Nourished, No Apparent Distress, Comfortable and Conversant
HEENT: Normocephalic and Atraumatic
Respiratory: Clear to Auscultation
Cardiac: Regular Rhythm and S1/S2
GI: Soft, Nontender, Nondistended and Other (Abdominal incision clean dry and intact. No discharge. )
Musculoskeletal: No Edema
Skin: Other (resolving erythema around neck and upper chest, nonblanchable ecchymotic)
Neuro: Awake, Alert and Oriented
Psych: Calm
Data Reviewed
-
Labs: Labs Reviewed by me, Discussed with Physician and Discussed with Patient
[2024-11-19] MEDS: DELTASONE 3 MG PO (09:02)
[2024-11-19] MEDS: PROTONIX IV 40 MG IV (09:02)
[2024-11-19] MEDS: NSS (PRESERVATIVE FREE) 10 ML IV (09:02)
[2024-11-19] MEDS: ENTEREG 12 MG PO ×2 (09:03→20:12)
[2024-11-19] MEDS: TYLENOL 650 MG PO ×4 (09:03→20:12)
[2024-11-19] MEDS: NEURONTIN 300 MG PO ×3 (09:03→21:50)
[2024-11-19] MEDS: CARDIZEM CD 120 MG PO (09:03)
[2024-11-19] MEDS: SILVADENE 1 APPLIC TOPICAL (09:04)
[2024-11-19] MEDS: DESITIN MAXIMUM STRENGTH PASTE 1 APPLIC TOPICAL ×4 (09:05→21:51)
[2024-11-19] MEDS: ELIQUIS 2.5 MG PO ×2 (09:06→20:11)
--- NOTE | 2024-11-19 09:41 | W.PN.CRS1 ---
Today's Communication / Plan
-
Discharge planning
Continue on the resident
Wound care
Assessment/Plan
-
POD#7 robotic ileostomy takedown with ileo-rectosigmoid intracorporeal anastomosis, small bowel resection x1
WBC 11.0 (12.7), Hgb 7.9 (8.1)
Vitals normal
-Continue low residue diet
-Incentive spirometry q1h while awake.
-Appreciate wound care. Discussed Xeroform on chest blister. Unsure of cause. Dr. Denis saw patient on 11/17, recommends Silvadene to wound daily.
-DVT prophylaxis: TEDS/SCDS in place. Lovenox ordered.
-OR pathology pending
-Pain control: Tylenol standing, Ultram PRN
-Appreciate field artillery cannoneer/hospitalist
-Appreciate wound nurse. Desitin to buttocks area 4 times daily.
-Discontinue rectal tube.
-Eliquis restarted 11/17
-Discharge, anticipate discharge to long term facility in another 1 to 2 days
Subjective Data
Procedure
11/12/2024- Robotic ileostomy takedown with ileo-rectosigmoid intracorporeal anastomosis, small bowel resection x1
Subjective Data
Date of Service: November 19, 2024
Patient states she feels well. She had loose stools yesterday. This happened about 5 times. She has tolerated diet. She denies nausea or vomiting. Her pain is controlled.
Objective Data
-
Vital Signs
Temp Pulse Resp BP Pulse Ox
97.4 F 78 16 138/70 99
11/19/24 07:23 11/19/24 09:03 11/19/24 07:23 11/19/24 09:03 11/19/24 07:23
Intake & Output
11/18/24 11/19/24 11/20/24
06:59 06:59 06:59
Intake Total 2620 / 2620 174 / 1740
Output Total 1750 / 1750
Balance 870 / 870 174 / 1739
Intake:
Oral fluids 1919 / 1919 174 / 1739
IV fluids (Total) 700 / 700
Output:
Liquid stool amount 500 / 500
Rectum 500 / 500
Urine, Voided 1250 / 1250
Other:
Number of approximated SMALL 1
amounts of urine
Number of approximated MODERATE 1 2
amounts of urine
How many times incontinent 1
MODERATE amount urine
How many times incontinent 2
SATURATED amount urine
Lab Results
11/19/24 07:11
11/19/24 07:11
Physical Exam
-
General: No Acute Distress and AOx3
Abdomen: Soft, Non Distended and Non Tender
Skin: Warm and Dry
Wound: Dressing Changed
Incision: Clear, Dry, Intact
[2024-11-19 11:24] VITALS: BP 113/84
--- NOTE | 2024-11-19 12:20 | PTCARENOTE ---
pt aaox3. states pain in kari rectal area. cream applied as ordered. area red and sore. silvadene cream applied to chest neck face area as ordered. pt inc of loose stool.
--- NOTE | 2024-11-19 14:58 | WOUNDNOTE ---
RIGHT MASTOID PROCESS
--- NOTE | 2024-11-19 14:58 | WOUNDNOTE ---
LEFT ANTERIOR LOWER LEG
--- NOTE | 2024-11-19 15:25 | WOUNDNOTE ---
[employer] RN NOTE: Patient visited to follow up on multiple wounds. Silvadene applied to necrotic areas on chest and face by RN Salvatore. Most of chest is now 95% ecchymotic with scattered scabbed areas. Pictures of face and chest sent to Dr. Mcdowell regarding
use of Silvadene and plan for discharge orders. Will confirm and update orders Left LE skin tear appears to be progressing toward healing and current wound care continues to be appropriate. Left leg with +2 edema and +pedal pulse. Compression with
LESA confirmed with Dr. Joy. Local wound care also provided to left hand skin tear. Perineal area with MASD related to frequent incontinent loose stools. Extra Strength Desitin was applied at ordered during assessment. Reviewed low residue diet
with patient who stated understanding. Ileostomy dressing clean and intact. Patient remains on Versa Care Air and demonstrates ability to turn in bed. Heels and sacrum intact. Heels off-loaded with pillows under calves. Will continue to follow
during in-patient stay.
[2024-11-19 15:35] VITALS: BP 144/67
[2024-11-19] MEDS: PREPARATION H OINTMENT 1 APPLIC RECTAL (16:09)
--- NOTE | 2024-11-19 16:17 | CM ---
Reviewed the chart notes and spoke with the patient's daughter via telephone. Updated on no beds found at this time. [facility] will re-evaluate for possible bed on . [facility] was also reviewing. CM continues to be available to patient/family and
is monitoring medical plan for needs at discharge.
Plan; Discharge to SNF once bed found. No precert required.
[2024-11-19 23:20] VITALS: BP 155/86
--- NOTE | 2024-11-19 23:26 | W.PN.UPDATE ---
Addendum entered and electronically signed by Geraldo Tamez MD 11/19/24 23:30:
Attending Addendum-
I saw and evaluated the patient. I reviewed the resident�s note and agree with findings and plan as documented in the resident�s note. Sub: Complains of anal burning and pain on passage of liquid stools. Denies fevers chills abd pain NV. Full 12
point ROS negative except as documented Exam- vitals reviewed in EMR GEN-NAD Heart RRR chest- crepitus palpated superior lat thorax b/l wound covered red healing. HEENT-NC AT lungs clear abd soft pos BS LE no edema DAILY RELEASE AND DUPE PRINTER bladder
Plan:
# H/O Mesenteric ischemia s/p Ileostomy and total colectomy on 12/27/23
- s/p Robotic ileostomy takedown with ileo-rectosigmoid intracorporeal anastomosis, small bowel resection-POD#6
- care per primary
- cont entereg, proph ertapenem x 48 hours-completed, pain control
- passing flatus and liquid stools- DC'd rectal trumpet
- advanced diet to LR
# Subcutaneous Emphysema
-resolving
-extubated at patient and family request on 11/13- DNI moving forward
# Chest Blister
- healing well
- plastics c/s appreciate input
- cont wound care
# Leukocytosis
- resolving
- repeat CBC in am
# Paroxysmal Atrial Fibrillation
- rate controlled
- cont Eliquis
- cont diltiazem
# Metabolic Acidosis
- resolved
- repeat BMP in am
# PMR
- cont chronic prednisone 3mg daily
# Acute on Chronic Hyperkalemia
- resolved
- DC Lokelma
- repeat BMP in am
# GERD
- cont pantoprazole
# Hypothyroidism
- cont levothyroxine
# Hyponatremia
- hypovolemic
- resolved
# Acute Blood Loss Anemia
- stable
- transfuse for HB<7
# CKD 3a
- baseline cr @ 1.1
- avoid NT agents
- check BMP in am
* Will continue to follow daily until DC
CODE- FULL->DNR
DVTp- eliquis
Dispo per primary SNF on dc- medically stable for DC in am awaiting bed
Time spent coordinating care, review of plan of care with resident, personally reviewed records in EMR, med rec, consults, notes, labs, radiology, d/w nursing and primary� 52 mins
Original Note:
[2024-11-20] MEDS: TYLENOL PO (00:57)
[2024-11-20] MEDS: TYLENOL 650 MG PO ×3 (04:17→13:41)
[2024-11-20] MEDS: SYNTHROID 100 MCG PO (05:38)
[2024-11-20 06:00] VITALS: BMI 22.2
[2024-11-20 06:46] LABS: Hematocrit 24.9 % (37.0-47.0); Hemoglobin 7.8 g/dL (12.0-16.0); Mean Corp Hgb Conc. 31.3 g/dL (33.0-37.0); Mean Corpuscular Hgb 29.3 pg (27.0-31.0); Mean Corpuscular Volume 93.6 fL (81.0-99.0); Mean Platelet Volume 10.9 fL (7.4-10.4); Platelet Count 382 10^3/uL (130-400); Red Blood Cell Count 2.66 10^6/uL (4.20-5.40); Red Cell Dist. Width 18.3 % (11.5-14.5); White Blood Cell Count 11.5 10^3/uL (4.8-10.8)
[2024-11-20 08:00] VITALS: BP 162/89
[2024-11-20 08:20] LABS: % Basophils 0.5 % (0-2); % Eosinophils 2.3 % (0-6); % Immature Granulocytes 3.2 % (0-0.5); % Lymphocytes 13.1 % (20.5-51.1); % Monocytes 10.9 % (1.7-9.3); Absolute Basophils 0.1 10^3/uL (0-0.2); Absolute Eosinophils 0.3 10^3/uL (0-0.7); Absolute Immature Granulocytes 0.4 10^3/uL (0-0.05); Absolute Lymphocytes 1.5 10^3/uL (1.2-3.4); Absolute Monocytes 1.3 10^3/uL (0.1-0.6); Absolute Neutrophils 8.3 10^3/uL (1.4-6.5); Nucleated Red Blood Cells % 0.3 %
[2024-11-20] MEDS: DELTASONE 3 MG PO (08:39)
[2024-11-20] MEDS: PROTONIX 40 MG PO (08:39)
[2024-11-20] MEDS: NEURONTIN 300 MG PO (08:40)
[2024-11-20] MEDS: ELIQUIS 2.5 MG PO (08:40)
[2024-11-20] MEDS: SILVADENE 1 APPLIC TOPICAL (08:40)
[2024-11-20] MEDS: CARDIZEM CD 120 MG PO (08:41)
[2024-11-20] MEDS: DESITIN MAXIMUM STRENGTH PASTE 1 APPLIC TOPICAL ×2 (08:41→13:43)
--- NOTE | 2024-11-20 08:58 | W.PN.HOSP.TC ---
Addendum entered and electronically signed by Geraldo Tamez MD 11/20/24 23:35:
Attending Addendum-
I saw and evaluated the patient. I reviewed the resident�s note and agree with findings and plan as documented in the resident�s note. Sub: Feels greatly improved ready for dc. 'im so thankful youll continueto be my doctor!' Denies fevers chills
abd pain NV. Full 12 point ROS negative except as documented Exam- vitals reviewed in EMR GEN-NAD Heart RRR chest- crepitus palpated superior lat thorax b/l wound covered red healing. HEENT-NC AT lungs clear abd soft pos BS LE no edema [employer] bladder
Plan:
# H/O Mesenteric ischemia s/p Ileostomy and total colectomy on 12/27/23
- s/p Robotic ileostomy takedown with ileo-rectosigmoid intracorporeal anastomosis, small bowel resection-POD#6
- care per primary
- cont entereg, proph ertapenem x 48 hours-completed, pain control
- passing flatus and liquid stools- DC'd rectal trumpet
- advanced diet to LR
# Subcutaneous Emphysema
-resolving
-extubated at patient and family request on 11/13- DNI moving forward
# Chest Blister
- healing well
- plastics c/s appreciate input
- cont wound care
# Leukocytosis
- resolving
- repeat CBC in am
# Paroxysmal Atrial Fibrillation
- rate controlled
- cont Eliquis
- cont diltiazem
# Metabolic Acidosis
- resolved
- repeat BMP in am
# PMR
- cont chronic prednisone 3mg daily
# Acute on Chronic Hyperkalemia
- resolved
- DC Lokelma
- repeat BMP in am
# GERD
- cont pantoprazole
# Hypothyroidism
- cont levothyroxine
# Hyponatremia
- hypovolemic
- resolved
# Acute Blood Loss Anemia
- stable
- transfuse for HB<7
# CKD 3a
- baseline cr @ 1.1
- avoid NT agents
- check BMP in am
*thank for allowing us to participate in this mayito womans care, patient stable for DC from medical standpoint
CODE- FULL->DNR
DVTp- eliquis
Dispo per primary SNF [facility], personally contacted admissions at [facility] to facilitate DC
Time spent coordinating care, review of plan of care with resident, personally reviewed records in EMR, med rec, consults, notes, labs, radiology, d/w nursing [place] and primary� 52 min
Original Note:
Today's Communication/Plan
-
Awaiting bed availability for rehab.
Assessment / Plan
Assessment / Plan
84-year-old female with a past medical history of atrial fibrillation on Eliquis, bowel ischemia status post colectomy with ileostom in 12/22, stroke, hypertension, hyperlipidemia, hypothyroidism, hyperkalemia, and polymyalgia rheumatica on chronic
prednisone underwent a 6 hour reported closure of her ileostomy today. She developed subcutaneous emphysema around lower neck and anterior upper chest intraoperative.
A/P:
# H/O Mesenteric ischemia
-Ileostomy s/p total colectomy on 12/27/23
-s/p Robotic ileostomy takedown with ileo-rectosigmoid intracorporeal anastomosis, small bowel resection-POD#7
-NG tube removed on 11/15
-Incentive spirometry
-On Entereg
-Continue p.o. Protonix
-Continue current diet
-Incision healing as expected
-Patient able to pass flatus and liquid stools
-Encourage OOB; will need rehab; case therapist working for placement
#Chest and face blister
-Continue wound care
-Patient reports that plastic surgeon recommended use of Silvadene and did not recommend any other intervention at this time.
# Subcutaneous Emphysema
-[place] to be related to tracking of CO2 from abdominal insufflation during surgery
-Significant improvement
# Leukocytosis
--Stable.
# Paroxysmal Atrial Fibrillation
-rate controlled with diltiazem 30 mg every 6 hours
-Eliquis; resumed on 11/17/24
# Metabolic Acidosis
-Improving.
# PMR
-chronically on prednisone 3mg daily
#Hypokalemia
-Resolved
# GERD
-cont pantoprazole 40 mg IV daily
# Hypothyroidism
-cont levothyroxine
# Hyponatremia
-Resolved
# Acute Blood Loss Anemia
-Hemoglobin 8.1; stable
-partially dilution s/p OR
-transfuse for HB<7
# CKD 3a
-baseline cr @ 1.1
-avoid NT agents
-Creatinine 0.9 today
# Transaminitis
-Trend every so often
CODE- FULL->DNR
DVT prophylaxis-Eliquis
Likely discharged tomorrow; SNF; case therapist looking for placement
Anticipated Discharge: Today
Subjective/Interval History
-
Date of Service: November 20, 2024
Offers no new complaints. AFVSS
Objective Data
-
Labs:
Laboratory Results
11/20/24
06:00
WBC 11.5 H
Hgb 7.8 L
Hct 24.9 L
Plt Count 382
Vital Signs:
Vital Signs
Temp Pulse Resp BP Pulse Ox
98.4 F 84 16 162/89 97
11/20/24 08:00 11/20/24 08:00 11/20/24 08:00 11/20/24 08:00 11/20/24 08:00
I&O
11/19/24 11/20/24 11/21/24
06:59 06:59 06:59
Intake Total 1740 / 1740 243 / 2429
Output Total /
Balance 1740 / 1740 2430 / 1730 -700 / -
Review of Systems
-
History Source: Patient
Constitutional: Reports No Symptoms
Respiratory: Reports No Symptoms
Cardiac: Reports No Symptoms
Abdomen/GI: Reports No Symptoms
Genitourinary: Reports No Symptoms
Skin: Reports Other (erythema around anterior neck and upper chest)
Neuro: Reports No Symptoms
Physical Exam
-
General: Well Nourished, No Apparent Distress, Comfortable and Conversant
HEENT: Normocephalic and Atraumatic
Respiratory: Clear to Auscultation
Cardiac: Regular Rhythm and S1/S2
GI: Soft, Nontender, Nondistended and Other (Abdominal incision clean dry and intact. No discharge. )
Musculoskeletal: No Edema
Skin: Other (resolving erythema around neck and upper chest, nonblanchable ecchymotic)
Neuro: Awake, Alert and Oriented
Psych: Calm
Data Reviewed
-
Labs: Labs Reviewed by me, Discussed with Physician and Discussed with Patient
--- NOTE | 2024-11-20 09:16 | CM ---
Addendum entered by Diya Marquez 11/20/24 12:53:
Patient accepted for transfer to [facility]. Patient requested CM speak with son and Jose Elias's phone is [phone]. Patient for transfer via wheelchair van and son to call and provide credit card number. Time scheduled for 15:30 son aware. IMM signed and
form placed on chart. Please call report to [phone]/fax [phone]. CM will continue to follow for discharge planning needs.
Plan; transfer to [facility]
Original Note:
Patient son called upset that patient was for discharge and he did not know where patient was going. Patient was referred to [facility] and [facility]. CM called to facilities and checked on beds, VM left for both facilities. Patient son not listed on contacts
CM will ask patient permission to contact him, per son patient daughter is not available today. CM sent Physician tt. CM will continue to follow for discharge planning needs.
[2024-11-20 11:15] VITALS: BP 99/69; PULSE 81
--- NOTE | 2024-11-20 11:45 | W.PN.CRS1 ---
Today's Communication / Plan
-
discharge
Assessment/Plan
-
POD#8 robotic ileostomy takedown with ileo-rectosigmoid intracorporeal anastomosis, small bowel resection x1
WBC 11.5 (11.0), Hgb 7.8 (7.9)
Vitals normal
-Switch diet to regular given loose stools
-Incentive spirometry q1h while awake.
-Appreciate wound care. Discussed Xeroform on chest blister. Unsure of cause. Dr. Denis saw patient on 11/17, recommends Silvadene to wound daily.
-DVT prophylaxis: TEDS/SCDS in place. Lovenox ordered.
-OR pathology pending
-Pain control: Tylenol standing, Ultram PRN
-Appreciate research geologist/hospitalist
-Appreciate wound nurse. Desitin to buttocks area 4 times daily.
-Discontinue rectal tube.
-Eliquis restarted 11/17
-Okay for discharge today. Discharge instructions discussed with patient and at bedside. All questions answered.
Subjective Data
Procedure
11/12/2024- Robotic ileostomy takedown with ileo-rectosigmoid intracorporeal anastomosis, small bowel resection x1
Subjective Data
Date of Service: November 20, 2024
Patient states she is still having some loose stools. Otherwise she feels well. She denies nausea or vomiting. She has no pain. She overall states she feels much better.
Objective Data
-
Vital Signs
Temp Pulse Resp BP Pulse Ox
98.4 F 84 16 162/89 97
11/20/24 08:00 11/20/24 08:00 11/20/24 08:00 11/20/24 08:00 11/20/24 08:00
Intake & Output
11/19/24 11/20/24 11/21/24
06:59 06:59 06:59
Intake Total 1740 / 1740 2430 / 243
Output Total 700 / 700
Balance 1740 / 1740 2430 / 1730 -700 / -700
Intake:
Oral fluids 1739 1740 2430 / 2430
Output:
Urine, Keith 700 / 700
Other:
Number of approximated SMALL 1 1
amounts of urine
Number of approximated MODERATE 2 1
amounts of urine
Number of approximated LARGE 1
amounts of urine
How many times incontinent 1
MODERATE amount urine
How many times incontinent 2
SATURATED amount urine
Number of unmeasured liquid
stools
Rectum 3
Lab Results
11/20/24 06:00
11/19/24 07:11
Physical Exam
-
General: No Acute Distress and AOx3
Abdomen: Soft, Non Distended and Non Tender
Skin: Warm and Dry
Wound: Dressing Changed
[2024-11-20 11:49] VITALS: BP 99/69; PULSE 81; O2SAT 96
--- NOTE | 2024-11-20 12:44 | W.DS.TRANS ---
DC Summary - Assistant Finance Director
-
Discharge Instructions:
Sleep Apnea Risk Low
Discharge Diagnosis/Procedures robotic ileostomy takedown with ileo-
rectosigmoid intracorporeal anastomosis, small
bowel resection x1
Diet Regular
Activity No strenuous activity
Additional Activity No lifting over 10 pounds
Driving Restrictions Not until seen by your Dr
Bathing Restrictions OK to Shower
Blood Work CBC in 1 week. [facility]
Wound Care Change surgical site daily with gauze and paper
tape. Okay to leave open to air once the
incision has sealed. [place] will be removed in
the office as an outpatient.
Instructions:
Stand-Alone Forms:
Changes to Home Medications: Yes
Discharge Medications:
DC Medications w/original date entered in [facility]
pantoprazole 40 mg tablet,delayed release 40 mg PO DAILY GERD 30 days #30 tabs 05/27/24
sodium zirconium cyclosilicate 5 gram oral powder packet (Lokelma) 5 g PO DAILY hyperkalemia #0 ea 06/13/24
ascorbic acid (vitamin C) 500 mg tablet (Vitamin C) 500 mg PO DAILY Supplement 30 days #30 tabs 06/20/24
diltiazem HCl 120 mg capsule,24 hr,extended release 120 mg PO DAILY Afib 10/04/24
gabapentin 300 mg capsule 300 mg PO TID neuropathic pain 10/04/24
levothyroxine 100 mcg tablet (Synthroid) 100 mcg PO DAILY Thyroid 10/04/24
prednisone 1 mg tablet 3 mg PO DAILY Anti-Inflammatory 10/04/24
acetaminophen 500 mg tablet 1,000 mg PO TID 11/04/24
acetic acid 1 dose topical DAILY 3% solution,arm skin tear 11/04/24
apixaban 2.5 mg tablet 2.5 mg PO BID 11/04/24
cholecalciferol (vitamin D3) 50 mcg (2,000 unit) capsule (Vitamin D3) 50 mcg PO DAILY 11/04/24
midodrine 2.5 mg tablet 2.5 mg PO TID HOLD SBP >120 11/04/24
zinc oxide 20 % topical ointment 1 applic topical TID sacrum 11/04/24
phenylephrine 0.25 %-mineral oil 14 %-petrolatm 74.9 % rectal ointment (Hemorrhoidal(phenyleph-min oil-petrolat)) 1 applic OK Q6HPRN PRN rectal irritation #56 grams 11/20/24
silver sulfadiazine 1 % topical cream 1 applic topical DAILY 30 days #50 grams 11/20/24
tramadol 50 mg tablet 50 mg PO Q6HPRN severe pain 14 days #20 tabs 11/20/24
Home Medication Changes
phenylephrine 0.25 %-mineral oil 14 %-petrolatm 74.9 % rectal ointment (Hemorrhoidal(phenyleph-min oil-petrolat)) 1 applic OK Q6HPRN PRN rectal irritation #56 grams 11/20/24
silver sulfadiazine 1 % topical cream 1 applic topical DAILY 30 days #50 grams 11/20/24
tramadol 50 mg tablet 50 mg PO Q6HPRN severe pain 14 days #20 tabs 11/20/24
Pending Results: No
[2024-11-20 14:00] VITALS: BP 102/53
== END 2024-11-20 15:45 | DRG 330 ==
LOC: 2 SOUTH 06:05
PROVIDERS: Hospitalist; Nurse Practitioner Family; Physician Assistant; Student in an Organized Health Care Education/Training Program; ADMITTING PHYSICIAN Surgery; CONSULT PHYSICIAN Family Medicine; CONSULT PHYSICIAN Internal Medicine Critical Care Medicine; CONSULT PHYSICIAN Surgery Plastic and Reconstructive Surgery; FAMILY PHYSICIAN Family Medicine
PROC: 0WQF3ZZ Repair Abdominal Wall, Percutaneous Approach (ICD-10-PCS; 2024-11-12)
PROC: 0DNW4ZZ Release Peritoneum, Percutaneous Endoscopic Approach (ICD-10-PCS; 2024-11-12)
PROC: 0BH17EZ Insertion of Endotracheal Airway into Trachea, Via Natural or Artificial Opening (ICD-10-PCS; 2024-11-12)
PROC: 0DB84ZZ Excision of Small Intestine, Percutaneous Endoscopic Approach (ICD-10-PCS; 2024-11-12)
PROC: 0DN84ZZ Release Small Intestine, Percutaneous Endoscopic Approach (ICD-10-PCS; 2024-11-12)
PROC: 8E0W4CZ Robotic Assisted Procedure of Trunk Region, Percutaneous Endoscopic Approach (ICD-10-PCS; 2024-11-12)
PROC: 0DJD8ZZ Inspection of Lower Intestinal Tract, Via Natural or Artificial Opening Endoscopic (ICD-10-PCS; 2024-11-12)
PROC: 5A1935Z Respiratory Ventilation, Less than 24 Consecutive Hours (ICD-10-PCS; 2024-11-12)
PROC: 0D9670Z Drainage of Stomach with Drainage Device, Via Natural or Artificial Opening (ICD-10-PCS; 2024-11-12)
PROC: 0DBP4ZZ Excision of Rectum, Percutaneous Endoscopic Approach (ICD-10-PCS; 2024-11-12)
PROC: 0DNU4ZZ Release Omentum, Percutaneous Endoscopic Approach (ICD-10-PCS; 2024-11-12)
DX: Z43.2 Encounter for attention to ileostomy (principal); D62 Acute posthemorrhagic anemia; E87.20 Acidosis, unspecified; E87.1 Hypo-osmolality and hyponatremia; K66.0 Peritoneal adhesions (postprocedural) (postinfection); D72.829 Elevated white blood cell count, unspecified; I48.0 Paroxysmal atrial fibrillation; M35.3 Polymyalgia rheumatica; E87.5 Hyperkalemia; R68.0 Hypothermia, not associated with low environmental temperature; K21.9 Gastro-esophageal reflux disease without esophagitis; E03.9 Hypothyroidism, unspecified; N18.31 Chronic kidney disease, stage 3a; I12.9 Hypertensive chronic kidney disease with stage 1 through stage 4 chronic kidney disease, or unspecified chronic kidney disease; R74.01 Elevation of levels of liver transaminase levels; N73.6 Female pelvic peritoneal adhesions (postinfective); K56.41 Fecal impaction; G62.9 Polyneuropathy, unspecified; E78.5 Hyperlipidemia, unspecified; E88.09 Other disorders of plasma-protein metabolism, not elsewhere classified; F41.9 Anxiety disorder, unspecified; G50.0 Trigeminal neuralgia; M48.061 Spinal stenosis, lumbar region without neurogenic claudication; E87.6 Hypokalemia; E86.1 Hypovolemia; T81.82XA Emphysema (subcutaneous) resulting from a procedure, initial encounter; Y83.2 Surgical operation with anastomosis, bypass or graft as the cause of abnormal reaction of the patient, or of later complication, without mention of misadventure at the time of the procedure; Y92.239 Unspecified place in hospital as the place of occurrence of the external cause; Z66 Do not resuscitate; Z96.643 Presence of artificial hip joint, bilateral; Z88.1 Allergy status to other antibiotic agents; Z88.5 Allergy status to narcotic agent; Z88.2 Allergy status to sulfonamides; Z88.8 Allergy status to other drugs, medicaments and biological substances; Z86.73 Personal history of transient ischemic attack (TIA), and cerebral infarction without residual deficits; Z79.01 Long term (current) use of anticoagulants; Z79.52 Long term (current) use of systemic steroids; Z90.49 Acquired absence of other specified parts of digestive tract; Z79.890 Hormone replacement therapy; Z87.891 Personal history of nicotine dependence; Z82.49 Family history of ischemic heart disease and other diseases of the circulatory system; Z83.3 Family history of diabetes mellitus; Z80.3 Family history of malignant neoplasm of breast; Z82.5 Family history of asthma and other chronic lower respiratory diseases; Z82.41 Family history of sudden cardiac death
CPT/HCPCS: 88304; 36415; 36600; 70492; 71045; 71250; 80048; 80053; 82533; 82805; 83036; 83735; 84100; 85025; 85027; 85610; 85730; 86850; 86900; 86901; 94002; 94003; 97116; 97163; 97167; 97530; 97535; J1335; Q9967

== ENCOUNTER → 2024-11-22 10:59 | Outpatient (REF) | payer MEDICARE, BC, SELFPAY | LOC: OLABP 10:59 | PROVIDERS: ATTENDING PHYSICIAN Family Medicine | DX: D64.9 Anemia, unspecified (principal); I48.0 Paroxysmal atrial fibrillation; I48.3 Typical atrial flutter; I10 Essential (primary) hypertension | CPT/HCPCS: 87324; 87449 ==

== ENCOUNTER → 2024-11-25 09:56 | Outpatient (REF) | payer OTHER, MEDICARE, BC, SELFPAY ==
[2024-11-25 10:57] LABS: % Basophils 0.5 % (0-2); % Eosinophils 2.2 % (0-6); % Immature Granulocytes 0.7 % (0-0.5); % Lymphocytes 7.6 % (20.5-51.1); Absolute Basophils 0.1 10^3/uL (0-0.2); Absolute Eosinophils 0.3 10^3/uL (0-0.7); Absolute Immature Granulocytes 0.1 10^3/uL (0-0.05); Absolute Lymphocytes 1.1 10^3/uL (1.2-3.4); Absolute Monocytes 1.2 10^3/uL (0.1-0.6); Absolute Neutrophils 11.9 10^3/uL (1.4-6.5); Hematocrit 23.4 % (37.0-47.0); Hemoglobin 7.5 g/dL (12.0-16.0); Mean Corp Hgb Conc. 32.1 g/dL (33.0-37.0); Mean Corpuscular Hgb 30.5 pg (27.0-31.0); Mean Corpuscular Volume 95.1 fL (81.0-99.0); Mean Platelet Volume 10.4 fL (7.4-10.4); Nucleated Red Blood Cells % 0 %; Platelet Count 391 10^3/uL (130-400); Red Blood Cell Count 2.46 10^6/uL (4.20-5.40); Red Cell Dist. Width 18.6 % (11.5-14.5); White Blood Cell Count 14.8 10^3/uL (4.8-10.8)
[2024-11-25 11:22] LABS: ALT (SGPT) 24 U/L (0-35); AST (SGOT) 28 U/L (14-36); Albumin 2.9 g/dl (3.5-5.0); Alkaline Phosphatase 333 U/L (38-126); Blood Urea Nitrogen 20 mg/dl (7-17); Carbon Dioxide 20 mmol/L (22-30); Chloride 110 mmol/L (98-107); Glucose 76 mg/dl (70-99); Potassium 4.1 mmol/L (3.5-5.1); Sodium 139 mmol/L (135-145); Total Bilirubin 0.6 mg/dl (0.2-1.3); Total Protein 5.1 g/dl (6.3-8.2); eGFR 49.24
== END ==
LOC: OLABP 09:56
PROVIDERS: ATTENDING PHYSICIAN Family Medicine
DX: K57.92 Diverticulitis of intestine, part unspecified, without perforation or abscess without bleeding (principal); I48.0 Paroxysmal atrial fibrillation; I48.3 Typical atrial flutter; I10 Essential (primary) hypertension; D64.9 Anemia, unspecified
CPT/HCPCS: 36415; 80053; 85025

== ENCOUNTER → 2024-11-28 10:00 | Outpatient (REF) | payer OTHER, MEDICARE, BC, SELFPAY ==
[2024-11-28 11:36] LABS: % Basophils 0.5 % (0-2); % Eosinophils 3.1 % (0-6); % Immature Granulocytes 0.9 % (0-0.5); % Lymphocytes 11.8 % (20.5-51.1); % Neutrophils 70.7 % (42.2-75.2); Absolute Basophils 0.1 10^3/uL (0-0.2); Absolute Eosinophils 0.3 10^3/uL (0-0.7); Absolute Immature Granulocytes 0.1 10^3/uL (0-0.05); Absolute Lymphocytes 1.1 10^3/uL (1.2-3.4); Absolute Monocytes 1.2 10^3/uL (0.1-0.6); Absolute Neutrophils 6.5 10^3/uL (1.4-6.5); Hematocrit 24.2 % (37.0-47.0); Hemoglobin 7.6 g/dL (12.0-16.0); Mean Corp Hgb Conc. 31.4 g/dL (33.0-37.0); Mean Corpuscular Hgb 30.3 pg (27.0-31.0); Mean Corpuscular Volume 96.4 fL (81.0-99.0); Mean Platelet Volume 10.4 fL (7.4-10.4); Nucleated Red Blood Cells % 0 %; Platelet Count 390 10^3/uL (130-400); Red Blood Cell Count 2.51 10^6/uL (4.20-5.40); Red Cell Dist. Width 18.2 % (11.5-14.5); White Blood Cell Count 9.2 10^3/uL (4.8-10.8)
[2024-11-28 11:47] LABS: Blood Urea Nitrogen 33 mg/dl (7-17); Calcium 9.1 mg/dl (8.4-10.2); Carbon Dioxide 14 mmol/L (22-30); Chloride 106 mmol/L (98-107); Glucose 78 mg/dl (70-99); Potassium 4.3 mmol/L (3.5-5.1); Sodium 133 mmol/L (135-145); eGFR 31.41
== END ==
LOC: OLABP 10:00
PROVIDERS: ATTENDING PHYSICIAN Family Medicine
DX: K57.92 Diverticulitis of intestine, part unspecified, without perforation or abscess without bleeding (principal); I48.0 Paroxysmal atrial fibrillation; I48.3 Typical atrial flutter; I10 Essential (primary) hypertension; D64.9 Anemia, unspecified
CPT/HCPCS: 36415; 80048; 85025

== ENCOUNTER → 2024-12-02 09:01 | Outpatient (REF) | payer OTHER, MEDICARE, BC, SELFPAY ==
[2024-12-02 10:26] LABS: % Basophils 0.5 % (0-2); % Eosinophils 4.1 % (0-6); % Immature Granulocytes 1.1 % (0-0.5); % Lymphocytes 19.8 % (20.5-51.1); % Monocytes 10.5 % (1.7-9.3); Absolute Basophils 0.1 10^3/uL (0-0.2); Absolute Eosinophils 0.4 10^3/uL (0-0.7); Absolute Immature Granulocytes 0.1 10^3/uL (0-0.05); Absolute Lymphocytes 1.9 10^3/uL (1.2-3.4); Absolute Neutrophils 6.1 10^3/uL (1.4-6.5); Hemoglobin 7.5 g/dL (12.0-16.0); Mean Corp Hgb Conc. 32.6 g/dL (33.0-37.0); Mean Corpuscular Hgb 29.8 pg (27.0-31.0); Mean Corpuscular Volume 91.3 fL (81.0-99.0); Mean Platelet Volume 10.3 fL (7.4-10.4); Nucleated Red Blood Cells % 0.2 %; Platelet Count 432 10^3/uL (130-400); Red Blood Cell Count 2.52 10^6/uL (4.20-5.40); Red Cell Dist. Width 17.3 % (11.5-14.5); White Blood Cell Count 9.5 10^3/uL (4.8-10.8)
[2024-12-02 10:52] LABS: Blood Urea Nitrogen 33 mg/dl (7-17); Carbon Dioxide 11 mmol/L (22-30); Chloride 99 mmol/L (98-107); Glucose 71 mg/dl (70-99); Sodium 125 mmol/L (135-145); eGFR 33.94
== END ==
LOC: OLABP 09:01
PROVIDERS: ATTENDING PHYSICIAN Family Medicine
DX: K57.92 Diverticulitis of intestine, part unspecified, without perforation or abscess without bleeding (principal); I48.0 Paroxysmal atrial fibrillation; I48.3 Typical atrial flutter; D64.9 Anemia, unspecified
CPT/HCPCS: 36415; 80048; 85025

== ENCOUNTER → 2024-12-05 09:17 | Outpatient (REF) | payer OTHER, MEDICARE, BC, SELFPAY ==
[2024-12-05 12:14] LABS: % Basophils 0.4 % (0-2); % Eosinophils 4.8 % (0-6); % Immature Granulocytes 1.3 % (0-0.5); % Lymphocytes 17.3 % (20.5-51.1); % Monocytes 12.8 % (1.7-9.3); % Neutrophils 63.4 % (42.2-75.2); Absolute Eosinophils 0.4 10^3/uL (0-0.7); Absolute Immature Granulocytes 0.1 10^3/uL (0-0.05); Absolute Lymphocytes 1.4 10^3/uL (1.2-3.4); Absolute Neutrophils 5.1 10^3/uL (1.4-6.5); Hematocrit 22.1 % (37.0-47.0); Hemoglobin 6.8 g/dL (12.0-16.0); Mean Corp Hgb Conc. 30.8 g/dL (33.0-37.0); Mean Corpuscular Hgb 29.2 pg (27.0-31.0); Mean Corpuscular Volume 94.8 fL (81.0-99.0); Mean Platelet Volume 9.3 fL (7.4-10.4); Nucleated Red Blood Cells % 0.3 %; Platelet Count 347 10^3/uL (130-400); Red Blood Cell Count 2.33 10^6/uL (4.20-5.40)
[2024-12-05 12:15] LABS: ALT (SGPT) 18 U/L (0-35); AST (SGOT) 21 U/L (14-36); Albumin 2.4 g/dl (3.5-5.0); Alkaline Phosphatase 249 U/L (38-126); Blood Urea Nitrogen 20 mg/dl (7-17); Calcium 8.4 mg/dl (8.4-10.2); Carbon Dioxide 16 mmol/L (22-30); Chloride 113 mmol/L (98-107); Glucose 68 mg/dl (70-99); Potassium 4.8 mmol/L (3.5-5.1); Sodium 134 mmol/L (135-145); Total Bilirubin 0.3 mg/dl (0.2-1.3); Total Protein 4.6 g/dl (6.3-8.2); eGFR 49.24
== END ==
LOC: OLAB 09:17
PROVIDERS: ATTENDING PHYSICIAN Family Medicine
DX: K57.92 Diverticulitis of intestine, part unspecified, without perforation or abscess without bleeding (principal); I48.0 Paroxysmal atrial fibrillation; I48.3 Typical atrial flutter; I10 Essential (primary) hypertension; D64.9 Anemia, unspecified
CPT/HCPCS: 36415; 80053; 85025

== ENCOUNTER → 2024-12-08 11:52 | Outpatient (REF) | payer OTHER, MEDICARE, BC, SELFPAY ==
[2024-12-08 12:27] LABS: % Basophils 0.5 % (0-2); % Eosinophils 4.9 % (0-6); % Immature Granulocytes 1.2 % (0-0.5); % Lymphocytes 15.9 % (20.5-51.1); % Monocytes 11.4 % (1.7-9.3); % Neutrophils 66.1 % (42.2-75.2); Absolute Eosinophils 0.4 10^3/uL (0-0.7); Absolute Immature Granulocytes 0.1 10^3/uL (0-0.05); Absolute Lymphocytes 1.3 10^3/uL (1.2-3.4); Absolute Neutrophils 5.5 10^3/uL (1.4-6.5); Hematocrit 23.5 % (37.0-47.0); Hemoglobin 7.3 g/dL (12.0-16.0); Mean Corp Hgb Conc. 31.1 g/dL (33.0-37.0); Mean Corpuscular Hgb 29.1 pg (27.0-31.0); Mean Corpuscular Volume 93.6 fL (81.0-99.0); Mean Platelet Volume 9.9 fL (7.4-10.4); Nucleated Red Blood Cells % 0.2 %; Platelet Count 355 10^3/uL (130-400); Red Blood Cell Count 2.51 10^6/uL (4.20-5.40); Red Cell Dist. Width 17.8 % (11.5-14.5); White Blood Cell Count 8.3 10^3/uL (4.8-10.8)
[2024-12-08 12:42] LABS: Blood Urea Nitrogen 21 mg/dl (7-17); Calcium 8.6 mg/dl (8.4-10.2); Carbon Dioxide 23 mmol/L (22-30); Chloride 109 mmol/L (98-107); Glucose 72 mg/dl (70-99); Potassium 4.6 mmol/L (3.5-5.1); Sodium 135 mmol/L (135-145); eGFR 49.24
== END ==
LOC: OLABP 11:52
PROVIDERS: ATTENDING PHYSICIAN Family Medicine
DX: K57.92 Diverticulitis of intestine, part unspecified, without perforation or abscess without bleeding (principal); I48.0 Paroxysmal atrial fibrillation; I10 Essential (primary) hypertension; D64.9 Anemia, unspecified
CPT/HCPCS: 36415; 80048; 85025

== ENCOUNTER 2024-12-19 16:14 | Inpatient (IN) | payer MEDICARE, BC, SELFPAY ==
[2024-12-18] VITALS (7 sets, daily range): BP systolic 123–152; BP diastolic 62–84; BMI 19.5
--- NOTE | 2024-12-18 09:12 | ED.GENMED ---
History of Present Illness
General
Chief Complaint: Abnormal Lab Value
Time Seen by Provider: 12/18/24 09:12
History of Present Illness
History of Present Illness:
TIME OF INITIAL ENCOUNTER: 9:15 AM
HPI: The patient was sent here due to low outpatient hemoglobin That she says was around 6. This was ordered by primary care yesterday as a routine visit. She was unable to see her normal doctor, Dr. Valdez but ended up seeing Dr. Gallegos. She
has no new specific complaints.
EXAM:
GENERAL: The patient appears generally weak and debilitated
HEENT: Moist oral mucosa
CARDIOVASCULAR: No murmurs, normal heart rate, regular rhythm, No chest wall tenderness
PULMONARY: No respiratory distress, breath sounds are clear and equal
ABDOMEN: Soft with no peritoneal signs, no tenderness, grossly heme positive brown stool, she did have an increased amount of pain with digital rectal examination, no definite masses
NEUROLOGIC: Fair strength all extremities, no coordination deficits
PSYCHIATRIC: Appropriate mental status, normal insight and judgement
EXTREMITIES: Nontender, no edema, moves all extremities equally
SKIN: Areas of ecchymosis noted diffusely to the extremities
NUMBER AND COMPLEXITY OF PROBLEMS ADDRESSED AT THE ENCOUNTER
� Chronic conditions affecting care: [facility], colectomy due to ischemia in November 2023 status post ileostomy reversal but then had significant subcutaneous emphysema with no history of pulmonary ventilator issues
� Acute Exacerbation and/or Progression of Chronic Illness: This is a subacute problem
� Differential Diagnosis includes: GI bleed, acute blood loss anemia, iron deficiency anemia
AMOUNT AND/OR COMPLEXITY OF DATA TO BE REVIEWED AND ANALYZED
� I performed an independent evaluation of and my interpretation is:
EKG: Sinus 90, left axis deviation, nonspecific ST abnormality, on 06/12/2024, the heart rate was 77
CT:
X-rays:
Laboratory Studies: Hemoglobin 7.2, white count 11.8, chemistries relatively unremarkable however of note alk phos is 406 (chronically elevated)
Other:
� Review of other/old records: I reviewed records, the patient had a robotic ileostomy takedown with ileal rectosigmoid intracorporeal anastomosis and small bowel resection with Dr. López on 11/12/2024. The patient had ileostomy
due to emergency total colectomy for acute ischemia in November 2023.
� Clinical information was obtained by an independent historian: I spoke to daughter and at bedside
� Prescriptions/Medications Considered but not given:
� Further testing considered but not performed:
RISK OF COMPLICATIONS AND/OR MORBIDITY OR MORTALITY OF PATIENT MANAGEMENT
� Social determinants of health affecting care: The patient was recently in [place] and now back at home
� Discussion with other providers: Notified both Dr. Wheatley and Dr. Martel. Dr. Wagner to admit.
� Escalation of care including admission/observation vs risk of discharge considered: Although patient's hemoglobin is near baseline, she is on Eliquis, 84 years old, and has briskly heme positive stool. Daughter in strong
agreement the patient should stay in the hospital. I have ordered blood.
ANY OTHER UPDATES:
Past History
Past History
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
DJD, sacral wound, diverticulitis) and Other (Toxic metabolic encephalopathy December 2023)
ED Past Surgical History: Appendectomy, Bowel resection, Cardiac (Ablation) and Orthopedic (Right SIMONE)
Social History
Tobacco: Former smoker
Alcohol: Occasional
Drug: None
Personal:
Living: with family
Employment: Retired
Family History
Family History: Other (Reviewed and noncontributory)
Phy Exam
Physical Exam
Physical Exam:
See HPI
Course
Orders/Labs/Results
Orders:
Orders
12/18/24 09:25
Electrocardiogram (*1) Urgent
Reason for Study: Atrial Fibrillation
EKG- Treatment ONCE
12/18/24 09:34
Type+Screen Urgent
Complete Blood Count/With Diff Urgent
Comprehensive Metabolic Panel Urgent
Ferritin Urgent
Iron Urgent
Total Iron Binding Urgent
12/18/24 10:25
* Blood Bank Products Urgent
Blood Bank Products: *Packed RBC Leuko(PRBC's)
Quantity: 1
Transfuse Today: Yes
Reason: Anemia
Abnormal Lab Results
12/18/24
09:34
WBC 11.8 H 10^3/uL
(4.8-10.8)
RBC 2.48 L 10^6/uL
(4.20-5.40)
Hgb 7.2 L g/dL
(12.0-16.0)
Hct 23.5 L %
(37.0-47.0)
MCHC 30.6 L g/dL
(33.0-37.0)
RDW 17.2 H %
(11.5-14.5)
Abs Immat Gran (auto) 0.1 H 10^3/uL
(0-0.05)
Absolute Neuts (auto) 8.7 H 10^3/uL
(1.4-6.5)
Absolute Monos (auto) 1.2 H 10^3/uL
(0.1-0.6)
Immature Gran % 0.8 H %
(0-0.5)
Lymphocytes % 11.4 L %
(20.5-51.1)
Monocytes % 10.5 H %
(1.7-9.3)
BUN 26 H mg/dl
(7-17)
Glucose 139 H mg/dl
(70-99)
Iron 35 L ug/dl
(37-170)
% Saturation 10 L %
(20-50)
AST 37 H U/L
(14-36)
Alkaline Phosphatase 406 H U/L
(38-126)
Total Protein 5.6 L g/dl
(6.3-8.2)
Albumin 3.1 L g/dl
(3.5-5.0)
12/18/24 09:34
12/18/24 09:34
Vital Signs
Initial and Last Documented VS:
Initial Vital Signs
Temp Pulse Resp BP Pulse Ox
37.1 C 93 16 128/64 100
12/18/24 09:06 12/18/24 09:06 12/18/24 09:06 12/18/24 09:06 12/18/24 09:06
Last Documented Vital Signs
Temp Pulse Resp BP Pulse Ox
37.1 C 93 16 128/64 98
12/18/24 09:06 12/18/24 09:06 12/18/24 09:06 12/18/24 09:06 12/18/24 09:36
*Critical Care Note
Total Time (30-74mins, 75-104mins- exclusive of procedures): Not Applicable
ED Attending Note
-
Portions of this chart may have been created with voice recognition software.� Occasional wrong word or��sound alike� substitutions may have occurred due to the inherent limitations of voice recognition software.
Discharge Plan
Departure
Patient Disposition: Admit
Date of Disposition: 12/18/24
Time of Disposition: 10:43
Presentation/result/management discussed w/ accepting MD/DO: Hospitalist
Discharge Problem:
Anemia
Prescriptions:
No Action
Lokelma 5 gram powder in packet
5 g PO DAILY Qty: 0 0RF
zinc oxide 20 % Ointment
1 applic TOPICAL TID
acetaminophen 500 mg Tablet
1,000 mg PO TID
cholecalciferol (vitamin D3) [Vitamin D3] 50 mcg (2,000 unit) Capsule
50 mcg PO DAILY
apixaban 2.5 mg Tablet
2.5 mg PO BID
acetic acid
1 dose topical DAILY
midodrine 2.5 mg tablet
2.5 mg PO TID
Hemorrhoidal(PE-min oil-aby) 0.25-14-74.9 % Ointment
1 applic ND Q6HPRN PRN (Reason: rectal irritation) Qty: 56 0RF
silver sulfadiazine 1 % Cream
1 applic topical DAILY 30 Days Qty: 50 2RF
tramadol 50 mg Tablet
50 mg PO Q6HPRN 14 Days Qty: 20 0RF
levothyroxine [Synthroid] 100 mcg Tablet
100 mcg PO DAILY
prednisone 1 mg Tablet
3 mg PO DAILY
gabapentin 300 mg Capsule
300 mg PO TID
diltiazem HCl 120 mg Capsule,Extended Release 24hr
120 mg PO DAILY
pantoprazole 40 mg Tablet,Delayed Release (Dr/Ec)
40 mg PO DAILY 30 Days Qty: 30 0RF
ascorbic acid (vitamin C) [Vitamin C] 500 mg Tablet
500 mg PO DAILY 30 Days Qty: 30 0RF
Interventions
Interventions:
*Risk Screen - Suicide Last Done: 12/18/24 09:08
*General Assessment Last Done: 12/18/24 09:59
*Neglect/Abuse Screening Last Done: 12/18/24 09:08
*ED COVID-19 Vaccine History Last Done: 12/18/24 09:59
Discharge Date and Time
Print Language: FAROESE
[2024-12-18 09:42] LABS: % Basophils 0.7 % (0-2); % Eosinophils 2.7 % (0-6); % Immature Granulocytes 0.8 % (0-0.5); % Lymphocytes 11.4 % (20.5-51.1); % Monocytes 10.5 % (1.7-9.3); % Neutrophils 73.9 % (42.2-75.2); Absolute Basophils 0.1 10^3/uL (0-0.2); Absolute Eosinophils 0.3 10^3/uL (0-0.7); Absolute Immature Granulocytes 0.1 10^3/uL (0-0.05); Absolute Lymphocytes 1.3 10^3/uL (1.2-3.4); Absolute Monocytes 1.2 10^3/uL (0.1-0.6); Absolute Neutrophils 8.7 10^3/uL (1.4-6.5); Hematocrit 23.5 % (37.0-47.0); Hemoglobin 7.2 g/dL (12.0-16.0); Mean Corp Hgb Conc. 30.6 g/dL (33.0-37.0); Mean Corpuscular Volume 94.8 fL (81.0-99.0); Mean Platelet Volume 9.3 fL (7.4-10.4); Nucleated Red Blood Cells % 0 %; Platelet Count 282 10^3/uL (130-400); Red Blood Cell Count 2.48 10^6/uL (4.20-5.40); Red Cell Dist. Width 17.2 % (11.5-14.5); White Blood Cell Count 11.8 10^3/uL (4.8-10.8)
[2024-12-18 09:54] LABS: ALT (SGPT) 27 U/L (0-35); AST (SGOT) 37 U/L (14-36); Albumin 3.1 g/dl (3.5-5.0); Alkaline Phosphatase 406 U/L (38-126); Blood Urea Nitrogen 26 mg/dl (7-17); Calcium 8.9 mg/dl (8.4-10.2); Carbon Dioxide 25 mmol/L (22-30); Chloride 103 mmol/L (98-107); Glucose 139 mg/dl (70-99); Iron 35 ug/dl (37-170); Potassium 4.3 mmol/L (3.5-5.1); Sodium 136 mmol/L (135-145); Total Bilirubin 0.6 mg/dl (0.2-1.3); Total Protein 5.6 g/dl (6.3-8.2); eGFR > 60.00
[2024-12-18 10:03] LABS: Percent Saturation 10 % (20-50); Total Iron Binding Capacity 330 ug/dl (265-497)
[2024-12-18 11:41] LABS: Ferritin 18.7 ng/ml (11.1-264.0)
[2024-12-18 14:21] LABS: Folate 14.1 ng/ml (2.76-20); Vitamin B12 724 pg/ml (239-931)
[2024-12-18 15:05] LABS: NT-proBNP 3860 pg/ml
--- NOTE | 2024-12-18 15:53 | WOUNDNOTE ---
NECK (POSTERIOR VIEW)
--- NOTE | 2024-12-18 15:54 | WOUNDNOTE ---
LEFT ANTERIOR NECK
--- NOTE | 2024-12-18 15:55 | WOUNDNOTE ---
BUTTOCK AND SACRUM
--- NOTE | 2024-12-18 16:00 | WOUNDNOTE ---
[facility] RN note: Patient admitted with anemia
See H&P for complete history.
PMH: Per physician note, CVA HTN Hypothyroidism PMR hx Bowel Ischemia Colectomy recent ileostomy reversal here for incidental finding Anemia Hgb 6 on routine outpatient lab work day prior to presentation.
Wound Location and type/assessment: Patient admitted with fungal rash to buttocks and groin and stage 2 PI to sacrum. Patient reports fecal and urinary incontinence has difficulty changing pull-up. She has assistance for 3 hours in the morning and
assists with pull up change once/twice day. She also has a skin tear to her right thigh, and abrasion to right lower leg and blood blister on left lower leg. Patient is ecchymotic on arms, legs.
Appetite: Reports poor
Pressure redistribution devices in place: Static air overlay or Air bed requested to RN Susan, as patient will be transferred to room 430 shortly.
Plan: Local wound care provided to wounds and orders confirmed with hospitalist. Will try anti- fungal ointment to buttocks and anti-fungal powder to groin. Calazime appropriate for superficial stage 2 of sacrum. Encouraged patient to change pull
up more often at home. Will confirm orders with hospitalist and update nurse. Updated care plan and will follow as needed.
Note to case management of equipment requested for discharge:
Recommend follow up at wound care center upon discharge.
--- NOTE | 2024-12-18 16:00 | PTCARENOTE ---
12/18- Patient transferred and oriented to unit without issue. AAOX3; MedSurg; Multiple red ecchymoses, abrasions, skin tears. BL LE wounds freshly cleansed and dressed by WOC RN today in ER; R-thigh wound freshly cleansed and dressed by WOC RN
today in ER; cleansed fungal rash on perineum, groin and buttox. Applied barrier ointment while awaiting antifungal cream to apply as ordered. Patient and Daughter both decline the Static Overlay Mattress as ordered due to discomfort, feeling like
'I'm sleeping on rocks' and poking into her skin in the past. Notified WOC RN and Physician of this and asked for alternatives to the Static Overlay. No further issues or needs expressed at this time.
--- NOTE | 2024-12-18 16:29 | HPS.HSE ---
Family Physician
-
Family Physician: David Valdez
Chief Complaint
-
Anemia
History of Present Illness
84F afib Eliquis CVA HTN Hypothyroidism PMR hx Bowel Ischemia Colectomy recent ileostomy reversal here for incidental finding Anemia Hgb 6 on routine outpatient lab work day prior to presentation. Repeat Lab work on ED eval noted Hgb 7.2 (appears
baseline for patient persistent anemia in 7's range since her ileostomy reversal in Nov 2024). VSS no obvious signs of bleeding. Hemeoccult was noted positive on rectal exam and patient was transfused 1PRBC as per ED. Iron studies consistent with
iron deficiency anemia. Patient placed on observation for now further evaluation/treatment anemia. Patient also notes increased leg swelling for the last week. Stable respiratory status on room.
Medical History
Past Medical History
Past Medical History: Reports Other (as above)
Past Surgical History: Reports Other (as above)
Social History
Tobacco: Non-smoker
Alcohol: None
Drug: None
Personal:
Living: With Family
Employment: Employed (reviewed)
Family History
Family History: Not pertinent (reviewed)
Allergies / Home Medications
Allergies reflects when Allergies were last updated in [facility].
Home Medications with original date entered in [facility]
Allergy/Medication List:
Allergies
Allergy/AdvReac Type Severity Reaction Status Date / Time
amlodipine Allergy Nausea Verified 11/12/24 06:19
codeine Allergy Nausea / Verified 11/12/24 06:19
Vomiting
doxycycline Allergy Hives Verified 11/12/24 06:19
hydrocodone [From Vicodin] Allergy Vomiting Verified 11/12/24 06:19
metoprolol [From Lopressor] Allergy Dizzy Verified 11/12/24 06:19
sulfamethoxazole Allergy Rash Verified 11/12/24 06:19
[From Bactrim]
trimethoprim [From Bactrim] Allergy Rash Verified 11/12/24 06:19
Home Medications
pantoprazole 40 mg tablet,delayed release 40 mg PO DAILY GERD 30 days #30 tabs 05/27/24
ascorbic acid (vitamin C) 500 mg tablet (Vitamin C) 500 mg PO DAILY Supplement 30 days #30 tabs 06/20/24
diltiazem HCl 120 mg capsule,24 hr,extended release 120 mg PO DAILY Afib 10/04/24
gabapentin 300 mg capsule 600 mg PO TID neuropathic pain 10/04/24
levothyroxine 100 mcg tablet (Synthroid) 100 mcg PO DAILY Thyroid 10/04/24
prednisone 1 mg tablet 3 mg PO DAILY Anti-Inflammatory 10/04/24
acetaminophen 500 mg tablet 1,000 mg PO TIDPRN PRN mild pain 11/04/24
apixaban 2.5 mg tablet 2.5 mg PO BID Blood Clot Prevention/Tx 11/04/24
cholecalciferol (vitamin D3) 50 mcg (2,000 unit) capsule (Vitamin D3) 50 mcg PO DAILY Supplement 11/04/24
midodrine 2.5 mg tablet 2.5 mg PO TID HOLD SBP >120 11/04/24
diphenoxylate-atropine 2.5 mg-0.025 mg tablet (Lomotil) 1 tab PO TID Gastrointestinal Issue 12/18/24
loperamide 2 mg tablet 2 mg PO TID Loose Stools 12/18/24
lorazepam 0.5 mg tablet 0.25 - 0.5 mg PO DAILYPRN PRN anixety 12/18/24
psyllium 1 packet PO DAILY Gastrointestinal Issue 12/18/24
sodium bicarbonate 650 mg tablet 1,300 mg PO BID Kidney Disease 12/18/24
Review of Systems
-
A 12 point ROS was completed and negative except as noted: Yes
Constitutional: Reports Other (as below)
Physical Exam
Vital Signs
Vital Signs
Temp Pulse Resp BP Pulse Ox
98.6 F 72 18 152/75 97
12/18/24 14:41 12/18/24 14:41 12/18/24 14:41 12/18/24 14:41 12/18/24 14:41
Physical Exam
General: Other (as below)
Laboratory Results
-
12/18/24 09:34
12/18/24 09:34
Laboratory Results
Total Bilirubin 0.6 mg/dl (0.2-1.3) 12/18/24 09:34
AST 37 U/L (14-36) H 12/18/24 09:34
ALT 27 U/L (0-35) 12/18/24 09:34
Alkaline Phosphatase 406 U/L (38-126) H 12/18/24 09:34
Impression/Plan
-
ROS
General: Denies fever chills night sweats unexpected weight loss
Neuro: Denies seizure shaking loss of consciousness dizziness vertigo
Psych: denies depression hallucinations confusion manic episodes
Endocrine: Denies polyuria polydipsia polyphagia heat/cold intolerance
HEENT: Denies blindness visual disturbances epistaxis
Pulmonary: denies coughing hemoptysis sneezing sob at rest
Cardiovascular: denies chest pain palpitations reports leg swelling
Hematology: reports bruising denies bleeding
Gastrointestinal: denies nausea vomiting diarrhea constipation hematemesis hematochezia melena
Genito-Urinary: denies retention incontinence dysuria
Musculoskeletal: reports joint pain generalized weakness
Dermatology: Left lower ext wound blister bruising
Physical Exam
General: Pallor noted, no cyanosis, or jaundice. Frail appearance
HEENT: Throat clear. PERRLA EOMI Normocephalic atraumatic
NECK: Supple. No JVD Carotid Bruits
RESPIRATORY: Lungs clear to auscultation. No crackles wheezes stridor
CVS: S1, S2 normal. RRR. No murmur, rub or gallop.
ABDOMEN: Soft, non-tender. No distension. BS+/normal.
EXTREMITIES: No peripheral cyanosis. Lower ext swelling +1 edema LLE blister wound bruising noted. scattered ecchymosis upper lower ext noted.
ASSISTANT RESEARCH SCIENTIST: AOx3 conversant coherent
Psych: calm
IMPRESSION:
84F afib Eliquis CVA HTN Hypothyroidism PMR on chronic prednisone hx Bowel Ischemia Colectomy recent ileostomy reversal here for incidental finding Anemia Hgb 6 on routine outpatient lab work day prior to presentation. Repeat Lab work on ED eval
noted Hgb 7.2 (appears baseline for patient persistent anemia in 7's range since her ileostomy reversal in Nov 2024). VSS no obvious signs of bleeding. Hemeoccult was noted positive on rectal exam and patient was transfused 1PRBC as per ED. Iron
studies consistent with iron deficiency anemia. Patient placed on observation for now further evaluation/treatment anemia. Patient also notes increased leg swelling for the last week. Stable respiratory status on room. Denies fever chills
coughing sneezing constipation. Reports chronic constipation on Lomotil and Imodium for the past few weeks since ileostomy reversal.
PLAN:
#Anemia unclear etiology
#On Eliquis for afib
#Recent Ileostomy reversal
#Chronic prednisone for PMR
#Iron panel appreciated Iron Def Anemia
med/surg Obs
1PRBC given in ED, follow up post-transfusion CBC w AM labs
daily oral iron supplementation started
CRS eval
Hold Eliquis for now in case need for intervention
Cont home Cardizem with hodling parameters
cont home lomotil, hold home imodium for now
Wound care
#Lower Ext swelling
#BNP elevated
stable resp status room air
check ECHO
dvt ppx SCD
gi ppx PPI
DNR as per patient
discussed with patient, patient's daughter Jaylin, and patient's
I spent a total of 77 minutes with the patient or on the floor. More than 50% of this time involved counseling and coordination of care.
[2024-12-18] MEDS: ProAmatine 2.5 MG PO (16:57)
[2024-12-18] MEDS: LOMOTIL 1 TABLET PO ×2 (16:57→22:07)
[2024-12-18] MEDS: NEURONTIN 600 MG PO ×2 (16:57→22:07)
--- NOTE | 2024-12-18 17:30 | CON.MD ---
Consultation - Medical
-
Full consult to be dictated.
History, vitals, labs reviewed. Patient seen and examined.
84-year-old female who is a couple months status post robotic and ileostomy with ilio rectosigmoid anastomosis by my partner Dr. López. Prior to that had had a subtotal colectomy for ischemic colitis. She was sent here by her primary care
physician for significant anemia. She has complaints of generalized malaise/fatigue as well as 'mushy' BMs. On discussion she actually denies obvious blood with BMs. She denies abdominal pain. She denies fevers or chills. However on seeing us,
he ordered some blood work and found a hemoglobin of 6.7. He recommended evaluation in the ER. Her vitals are normal. Blood work otherwise is unremarkable. In the ER her hemoglobin was found to be 7.2 which is actually not much different than it
was on the 10th of this month when it was recorded to be 7.3. She has been transfused 1 unit of blood since coming into the ER. We were consulted for a colorectal surgical opinion regarding her situation. On exam her abdomen is mildly sensitive
but not particularly tender. WILFREDO was deferred. Apparently WILFREDO in the ER was Hemoccult positive. Opinion there is not no need for urgent interventions at this point. The etiology of the anemia is not entirely clear. GI source is possible.
Recommend evaluation by gastroenterology.
Thanks.
[2024-12-18] MEDS: PROTONIX IV 40 MG IV (18:11)
[2024-12-18] MEDS: NSS (PRESERVATIVE FREE) 10 ML IV (18:11)
[2024-12-18] MEDS: ANTIFUNGAL CLEAR 1 APPLIC TOPICAL (20:34)
[2024-12-19] MEDS: SYNTHROID 100 MCG PO (05:20)
--- NOTE | 2024-12-19 07:04 | CON.GI ---
Addendum entered and electronically signed by Delilah Julian MD 12/19/24 21:30:
I saw and examined the patient.
The PHARMACISTS or PA's note was reviewed and I agree with the note.
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 On discharge in early November 2024, hemoglobin was around 6.8-7.3. Has been on oral iron. Postop, she reports that she has been having diarrhea up
to 5 times a day with some nocturnal episodes but she has been taking 3 Lomotil and 4 Imodium and bowel movements have been semiformed. She denies any significant diarrhea at this time. Denies any blood in the stool or black stool. This is
different from what she related to my PHARMACISTS Galilea-was told that she has multiple stool with urgency and incontinence. Reviewing stool testing, norovirus came back positive, C. difficile antigen positive but toxin negative. She received 1 unit of
packed red blood cells this admission and hemoglobin is up to 9.3
-Iron deficiency anemia with history of subtotal colectomy with ileostomy in November 2023, ileostomy reversal and lysis of adhesions November 2024, no evidence of overt GI bleeding and hemoglobin close to baseline.
Agree with IV iron, currently on PPI twice a day with chronic prednisone use
Continue to monitor H&H and transfuse if needed
No need for urgent endoscopy evaluation.
-Diarrhea likely related to subtotal colectomy subtotal colectomy with ileocolonic anastomosis
Stool studies positive for norovirus and C. difficile antigen positive but toxin negative. Stool cultures pending. Noted ID evaluation, no need to treat for C. difficile. Less concern for norovirus.
Less likely infectious diarrhea but will follow-up on the above testing currently on Imodium and Lomotil and has been able to manage diarrhea, will monitor in the hospital
Tolerating regular diet
Addendum entered and electronically signed by RAPHAEL Lara 12/19/24 15:05:
Just reviewed stool cx with Dr. Camarena-- c-diff ag + tox neg, also + norovirus but no vomiting and tolerating diet. Would continued current antidiarrheal regiment with diarrhea since post-op state . Will review with Dr. Julian for adding Vanco with
antigen + neg tox cdiff cx.
Original Note:
Consultation
-
Date/Time Consultation Requested: 12/18/24 1745
Date/Time Consultation Performed: 12/18/24 1200
Requesting Provider: Alex Wagner MD
Performing Provider: RAPHAEL Castillo, Delilah Julian MD
Reason for Consultation: anemia, diarrhea
Medical History
Chief Complaint / HPI
Chief Complaint: drop in hbg
History of Present Illness:
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
PMR on chronic Prednisone, presents today for drop in hbg. In review of lab pt has had chronic anemia. Pt was noted with hbg 6-8 range last year after surgery. Last summer and fall she was noted 9- 11 range. Pre-op was 10 then post -op 7 range
since surgery and dropped to 6.8. She was noted in heme + stool in ER. Her other complaint during evaluation is stool urgency and incontinence since reversal. Last colonoscopy 11/2023 during ischemia with noted hemorrhoids, stool in colon and
concern for necrosis leading to colectomy, She had sigmoid 08/2024 noted normal. No hx EGD in past.
Pt admits to stool frequency, urgency and incontinence since surgery but denies hx visible rectal bleeding, hematuria, or vaginal bleeding. She admits stool have some form and are mushy but difficulty with controlling stools. She had tried
Imodium and Lomotil and fiber without improvement. She otherwise denies dysphagia, GERD, nausea, vomiting,or abdominal pain. She denies NSAID use. also noted with increased bruising
Past Medical History
Past Medical History: Arrhythmias (afib on Eliquis, SSS), CVA, GERD, HTN, Hypercholesterolemia, Hypothyroidism and Psychiatric (anxiety)
Past Surgical History: Orthopedic (right hip hemiarthropathy )
Social History
Tobacco: Non-Smoker
Alcohol: None
Drug: None
Personal:
Living: With Family
Employment: Retired
Family History
Family History: Other (no family hx colon CA or polyps)
Allergies / Home Medications
Allergy/AdvReac Type Severity Reaction Status Date / Time
amlodipine Allergy Nausea Verified 11/12/24 06:19
codeine Allergy Nausea / Verified 11/12/24 06:19
Vomiting
doxycycline Allergy Hives Verified 11/12/24 06:19
hydrocodone [From Vicodin] Allergy Vomiting Verified 11/12/24 06:19
metoprolol [From Lopressor] Allergy Dizzy Verified 11/12/24 06:19
sulfamethoxazole Allergy Rash Verified 11/12/24 06:19
[From Bactrim]
trimethoprim [From Bactrim] Allergy Rash Verified 11/12/24 06:19
�Medication �Instructions �Recorded
pantoprazole 40 mg tablet,delayed 40 mg PO DAILY GERD 30 days #30 05/27/24
release tabs
ascorbic acid (vitamin C) 500 mg 500 mg PO DAILY Supplement 30 days 06/20/24
tablet (Vitamin C) #30 tabs
diltiazem HCl 120 mg capsule,24 120 mg PO DAILY Afib 10/04/24
hr,extended release
gabapentin 300 mg capsule 600 mg PO TID neuropathic pain 10/04/24
levothyroxine 100 mcg tablet 100 mcg PO DAILY Thyroid 10/04/24
(Synthroid)
prednisone 1 mg tablet 3 mg PO DAILY Anti-Inflammatory 10/04/24
acetaminophen 500 mg tablet 1,000 mg PO TIDPRN PRN mild pain 11/04/24
apixaban 2.5 mg tablet 2.5 mg PO BID Blood Clot 11/04/24
Prevention/Tx
cholecalciferol (vitamin D3) 50 50 mcg PO DAILY Supplement 11/04/24
mcg (2,000 unit) capsule (Vitamin
D3)
midodrine 2.5 mg tablet 2.5 mg PO TID HOLD SBP >120 11/04/24
diphenoxylate-atropine 2.5 1 tab PO TID Gastrointestinal Issue 12/18/24
mg-0.025 mg tablet (Lomotil)
loperamide 2 mg tablet 2 mg PO TID Loose Stools 12/18/24
lorazepam 0.5 mg tablet 0.25 - 0.5 mg PO DAILYPRN PRN 12/18/24
anixety
psyllium 1 packet PO DAILY Gastrointestinal 12/18/24
Issue
sodium bicarbonate 650 mg tablet 1,300 mg PO BID Kidney Disease 12/18/24
Review of Systems
-
History Source: Patient
Constitutional: Reports No Symptoms
EENT: Reports No Symptoms
Respiratory: Reports No Symptoms
Cardiac: Reports No Symptoms
Abdomen/GI: Reports Diarrhea (with urgency and incontinence )
: Reports No Symptoms and Dysuria
Musculoskeletal: Reports No Symptoms
Skin: Reports Other (LE swelling and bruising)
Neurological: Reports Weakness
Endocrine: Reports No Symptoms
Hematologic/Lymphatic: Reports No Symptoms
Vital Signs
Temp Pulse Resp BP Pulse Ox
97.3 F 70 16 126/84 95
12/18/24 23:15 12/18/24 23:15 12/18/24 23:15 12/18/24 23:15 12/18/24 23:15
Physical Exam
Exam
General: Other (elderly female with multiple bruises and edema in lower extremities )
HEENT: Normocephalic and Anicteric
Respiratory: Clear
Cardiac: Regular Rhythm
GI: Soft and Non Distended
Musculoskeletal: No Clubbing and No Cyanosis
Skin: Warm and Dry
Neuro: Awake, Alert and AO x 3
Psych: Calm
Results
WBC 11.8 10^3/uL (4.8-10.8) H 12/18/24 09:34
Hgb 7.2 g/dL (12.0-16.0) L 12/18/24:34
Hct 23.5 % (37.0-47.0) L 12/18/24 09:34
MCV 94.8 fL (81.0-99.0) 12/18/24 09:34
Plt Count 282 10^3/uL (130-400) 12/18/24 09:34
Absolute Neuts (auto) 8.7 10^3/uL (1.4-6.5) H 12/18/24 09:34
Sodium 136 mmol/L (135-145) 12/18/24 09:34
Potassium 4.3 mmol/L (3.5-5.1) 12/18/24 09:34
Chloride 103 mmol/L (98-107) 12/18/24 09:34
Carbon Dioxide 25 mmol/L (22-30) 12/18/24 09:34
BUN 26 mg/dl (7-17) H 12/18/24 09:34
Creatinine 0.9 mg/dL (0.6-1.0) 12/18/24 09:34
Calcium 8.9 mg/dl (8.4-10.2) 12/18/24 09:34
Total Bilirubin 0.6 mg/dl (0.2-1.3) 12/18/24 09:34
AST 37 U/L (14-36) H 12/18/24 09:34
ALT 27 U/L (0-35) 12/18/24 09:34
Alkaline Phosphatase 406 U/L (38-126) H 12/18/24 09:34
Diagnostic Image Results:
Prior GI Procedures:
EGD: none
Colonoscopy:
colonoscopy Syd 11/2023 during ischemia with noted hemorrhoids, stool in colon and concern for necrosis leading to colectomy,
flex sigmoid 08/2024 kimberly noted normal.
Assessment / Plan
-
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
PMR on chronic Prednisone, presents today for drop in hbg. In review of lab pt has had chronic anemia. Pt was noted with hbg 6-8 range last year after surgery. Last summer and fall she was noted 9- 11 range. Pre-op was 10 then post -op 7 range
since surgery and dropped to 6.8. She was noted in heme + stool in ER. Her other complaint during evaluation is stool urgency and incontinence since reversal. Last colonoscopy 11/2023 during ischemia with noted hemorrhoids, stool in colon and
concern for necrosis leading to colectomy, She had sigmoid 08/2024 noted normal. No hx EGD in past.
-chronic anemia with iron deficiency heme + in ER
-hx bowel ischemia with colectomy and SB resection with recent ileostomy reversal
-stool frequency, incontinence since surgery
other med problems:
-afib on Eliquis
-SSS
-CVA
-hyperlipidemia-
-hypothryoidism
-PMR on chronic steroids
PLAN:
etiology of anemia unclear --no far from baseline-- may be post-op loss -- brown stool with no signs of aggressive bleeding
s/p transfusion 1 unit given on admission
add IV iron and resume OP oral iron on discharge
discussed GI work up with EGD/colon but reviewed risk/benefit with recent surgery vs trending hbg with periodic transfusion/IV iron and consider heme eval
pt will consider options leading toward holding on scopes and OP follow up
s/p Eliquis 12/18 last dose
Pt currently on Lomotil TID and Metamucil daily-- will restart and add Imodium 2mg BID -
if not effective can then increase Imodium slowly to 6mg BID first--- if still with issue then consider increased Lomotil slowly to 2mg QID
updated patient and spouse on plan
-
-
Thank you for consultation and allowing me to participate in the patient's care. Please call the recreation program specialist GI physician during the after hours with any questions or concerns.
--- NOTE | 2024-12-19 07:18 | W.PN.HOSP.TC ---
Today's Communication/Plan
-
Lomotil Imdur as per GI
ID eval
monito H&H
Iron supplementation
Assessment / Plan
Assessment / Plan
Physical Exam
General: Pallor improved, no cyanosis, or jaundice. Frail appearance
HEENT: Throat clear. PERRLA EOMI Normocephalic atraumatic
NECK: Supple. No JVD Carotid Bruits
RESPIRATORY: Lungs clear to auscultation. No crackles wheezes stridor
CVS: S1, S2 normal. RRR. No murmur, rub or gallop.
ABDOMEN: Soft, non-tender. No distension. BS+/normal.
EXTREMITIES: No peripheral cyanosis. Lower ext swelling +1 edema LLE blister wound bruising noted. scattered ecchymosis upper lower ext noted.
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
Psych: calm
IMPRESSION:
84F afib Eliquis CVA HTN Hypothyroidism PMR on chronic prednisone hx Bowel Ischemia Colectomy recent ileostomy reversal here for incidental finding Anemia Hgb 6 on routine outpatient lab work day prior to presentation. Repeat Lab work on ED eval
noted Hgb 7.2 (appears baseline for patient persistent anemia in 7's range since her ileostomy reversal in Nov 2024). VSS no obvious signs of bleeding. Hemeoccult was noted positive on rectal exam and patient was transfused 1PRBC as per ED. Iron
studies consistent with iron deficiency anemia. Patient placed on observation for now further evaluation/treatment anemia. Patient also notes increased leg swelling for the last week. Stable respiratory status on room. Denies fever chills
coughing sneezing constipation. Reports chronic constipation on Lomotil and Imodium for the past few weeks since ileostomy reversal.
PLAN:
#Anemia unclear etiology
#On Eliquis for afib
#Recent Ileostomy reversal
#Chronic prednisone for PMR
#Iron panel appreciated Iron Def Anemia
med/surg
1PRBC given in ED, post-transfusion CBC notes appropriate response
Iron supplementation
CRS GI evals appreciated
Hold Eliquis for now in case need for intervention
Cont home Cardizem with holding parameters
cont lomotil and imdur as per GI
Wound care
#Norovirus pos Cdiff antigen pos toxin neg
ID eval requested
#Lower Ext swelling
#BNP elevated
#Lymphedema
stable resp status room air
ECHO appreciated EF 67% no significant change to prior ECOH 12/2023
PT/OT appreciated Home Health
dvt ppx SCD
gi ppx PPI
DNR
discussed with patient and patient's Jose Elias
I spent a total of 45 minutes with the patient or on the floor. More than 50% of this time involved counseling and coordination of care.
Anticipated Discharge: Within 24 hours
Subjective/Interval History
-
Date of Service: December 19, 2024
Excessive diarrhea in morning. improved as day progressed. Patient otherwise reports feeling well. Denies new acute issues at this time.
Objective Data
-
Labs:
Laboratory Results
12/19/24
06:00
WBC Pending
Hgb Pending
Hct Pending
Plt Count Pending
Sodium Pending
Potassium Pending
Chloride Pending
Carbon Dioxide Pending
BUN Pending
Creatinine Pending
Glucose Pending
Calcium Pending
Vital Signs:
Vital Signs
Temp Pulse Resp BP Pulse Ox
97.3 F 70 16 126/84 95
12/18/24 23:15 12/18/24 23:15 12/18/24 23:15 12/18/24 23:15 12/18/24 23:15
I&O
12/18/24 12/19/24 12/20/24
06:59 06:59 06:59
Intake Total 730 / 730
Balance 730 / 730
[2024-12-19] MEDS: PROTONIX IV 40 MG IV ×2 (07:34→20:15)
[2024-12-19] MEDS: NSS (PRESERVATIVE FREE) 10 ML IV ×2 (07:34→20:17)
[2024-12-19 07:35] VITALS: BMI 19.5
[2024-12-19] MEDS: DELTASONE 3 MG PO (07:35)
[2024-12-19] MEDS: HYDROPHOR 1 APPLIC TOPICAL (07:35)
[2024-12-19] MEDS: ANTIFUNGAL CLEAR 1 APPLIC TOPICAL ×2 (07:35→20:37)
[2024-12-19] MEDS: NEURONTIN 600 MG PO ×3 (07:36→21:15)
[2024-12-19] MEDS: METAMUCIL, KONSYL 1 PACKET PO (07:36)
[2024-12-19] MEDS: ProAmatine 2.5 MG PO ×3 (07:36→17:01)
[2024-12-19] MEDS: VITAMIN C 500 MG PO (07:36)
[2024-12-19] MEDS: FEOSOL 325 MG PO (07:37)
[2024-12-19] MEDS: LOMOTIL 1 TABLET PO ×3 (07:37→21:17)
[2024-12-19] MEDS: VITAMIN D3 (cholecalciferol) 50 MCG PO (07:37)
[2024-12-19] MEDS: CARDIZEM CD 120 MG PO (07:37)
[2024-12-19 07:45] VITALS: BP 102/63
--- NOTE | 2024-12-19 08:18 | VNURNOTE ---
Chart reviewed. Patient is current with [facility] nursing, PT, OT. Will continue to follow hospital course and DC plans.
[2024-12-19 10:19] VITALS: BP 109/66; PULSE 71
[2024-12-19 10:30] VITALS: BP 109/66; PULSE 71
--- NOTE | 2024-12-19 11:13 | CON.CRS ---
Consultation
-
Date/Time Consultation Requested: 12/18/24, 11:28
Date/Time Consultation Performed: 12/18/24, 17:30
Requesting Provider: Rachel Wagner MD
Performing Provider: Yariel Wheatley MD
Reason for Consultation: anemia
Medical History
-
Chief Complaint: anemia on labwork
History of Present Illness:
84-year-old female who is a couple months status post robotic and ileostomy with ilio rectosigmoid anastomosis by my partner Dr. López. Prior to that had had a subtotal colectomy for ischemic colitis. She was sent here by her primary care
physician for significant anemia. She has complaints of generalized malaise/fatigue as well as 'mushy' BMs. On discussion she actually denies obvious blood with BMs. She denies abdominal pain. She denies fevers or chills. However on seeing us,
he ordered some blood work and found a hemoglobin of 6.7. He recommended evaluation in the ER. Her vitals are normal. Blood work otherwise is unremarkable. In the ER her hemoglobin was found to be 7.2 which is actually not much different than it
was on the 10th of this month when it was recorded to be 7.3. She has been transfused 1 unit of blood since coming into the ER. We were consulted for a colorectal surgical opinion regarding her situation.
Past Medical History
Past Medical History: Arrhythmias (Atrial fibrillation on Eliquis), HTN, Hypercholesterolemia, Hypothyroidism, Psychiatric (Anxiety) and Other (Bowel ischemia status post colectomy with ileostomy, status post ileostomy reversal, CVA, Polymyalgia
rheumatica, anemia, lumbar spinal stenosis, sciatica, trigeminal neuralgia, hiatal hernia)
Past Surgical History: Appendectomy and Other (Total colectomy and diverting ileostomy, status post ileostomy reversal, right hip arthroplasty, left hip hemiarthroplasty, cataract surgery)
Social History
Tobacco: Former Smoker
Alcohol: None
Drug: None
Family History
Family History: Reviewed & Not Pertinent
Allergies / Home Medications
Allergy/AdvReac Type Severity Reaction Status Date / Time
amlodipine Allergy Nausea Verified 11/12/24 06:19
codeine Allergy Nausea / Verified 11/12/24 06:19
Vomiting
doxycycline Allergy Hives Verified 11/12/24 06:19
hydrocodone [From Vicodin] Allergy Vomiting Verified 11/12/24 06:19
metoprolol [From Lopressor] Allergy Dizzy Verified 11/12/24 06:19
sulfamethoxazole Allergy Rash Verified 11/12/24 06:19
[From Bactrim]
trimethoprim [From Bactrim] Allergy Rash Verified 11/12/24 06:19
�Medication �Instructions �Recorded �Confirmed �Type
pantoprazole 40 mg tablet,delayed 40 mg PO DAILY GERD 30 days #30 05/27/24 12/18/24 Rx
release tabs
ascorbic acid (vitamin C) 500 mg 500 mg PO DAILY Supplement 30 days 06/20/24 12/18/24 Rx
tablet (Vitamin C) #30 tabs
diltiazem HCl 120 mg capsule,24 120 mg PO DAILY Afib 10/04/24 12/18/24 History
hr,extended release
gabapentin 300 mg capsule 600 mg PO TID neuropathic pain 10/04/24 12/18/24 History
levothyroxine 100 mcg tablet 100 mcg PO DAILY Thyroid 10/04/24 12/18/24 History
(Synthroid)
prednisone 1 mg tablet 3 mg PO DAILY Anti-Inflammatory 10/04/24 12/18/24 History
acetaminophen 500 mg tablet 1,000 mg PO TIDPRN PRN mild pain 11/04/24 12/18/24 History
apixaban 2.5 mg tablet 2.5 mg PO BID Blood Clot 11/04/24 12/18/24 History
Prevention/Tx
cholecalciferol (vitamin D3) 50 50 mcg PO DAILY Supplement 11/04/24 12/18/24 History
mcg (2,000 unit) capsule (Vitamin
D3)
midodrine 2.5 mg tablet 2.5 mg PO TID HOLD SBP >120 11/04/24 12/18/24 History
diphenoxylate-atropine 2.5 1 tab PO TID Gastrointestinal Issue 12/18/24 12/18/24 History
mg-0.025 mg tablet (Lomotil)
loperamide 2 mg tablet 2 mg PO TID Loose Stools 12/18/24 12/18/24 History
lorazepam 0.5 mg tablet 0.25 - 0.5 mg PO DAILYPRN PRN 12/18/24 12/18/24 History
anixety
psyllium 1 packet PO DAILY Gastrointestinal 12/18/24 12/18/24 History
Issue
sodium bicarbonate 650 mg tablet 1,300 mg PO BID Kidney Disease 12/18/24 12/18/24 History
Review of Systems
-
History Source: Patient
Musculoskeletal: Edema (Lower extremities)
A 10 point review of systems was completed, and was negative except as per HPI.
Physical Exam
Vital Signs
Temp 98.1 F 12/19/24 07:45
Pulse 68 12/19/24 07:45
Resp Rate 18 12/19/24 07:45
Blood pressure 102/63 12/19/24 07:45
SaO2 97 12/19/24 07:45
12/18/24 12/19/24 12/20/24
06:59 06:59 06:59
Actual Weight 49.941 kg
Body Mass Index (BMI) 19.5
Lab Results / Allergies
WBC 11.8 10^3/uL (4.8-10.8) H 12/18/24 09:34
Hgb 7.2 g/dL (12.0-16.0) L 12/18/24 09:34
Hct 23.5 % (37.0-47.0) L 12/18/24 09:34
Plt Count 282 10^3/uL (130-400) 12/18/24 09:34
Abs Immat Gran (auto) 0.1 10^3/uL (0-0.05) H 12/18/24 09:34
Neutrophils % 73.9 % (42.2-75.2) 12/18/24 09:34
Allergy/AdvReac Type Severity Reaction Status Date / Time
amlodipine Allergy Nausea Verified 11/12/24 06:19
codeine Allergy Nausea / Verified 11/12/24 06:19
Vomiting
doxycycline Allergy Hives Verified 11/12/24 06:19
hydrocodone [From Vicodin] Allergy Vomiting Verified 11/12/24 06:19
metoprolol [From Lopressor] Allergy Dizzy Verified 11/12/24 06:19
sulfamethoxazole Allergy Rash Verified 11/12/24 06:19
[From Bactrim]
trimethoprim [From Bactrim] Allergy Rash Verified 11/12/24 06:19
Physical Exam
General: Well Developed, Well Nourished and No Apparent Distress
GI: Soft, Non Tender and Non Distended
Neuro: AO x 3
Assessment / Plan
-
Assessment: 84-year-old female status post robotic ileostomy takedown and small bowel resection on 11/12/2024 and a subtotal colectomy due to ischemic colitis prior to this, presents to the ER due to an outpatient finding of a hemoglobin of 6.7
Plan:
There is not no need for urgent interventions at this point. The etiology of the anemia is not entirely clear. GI source is possible. Recommend evaluation by gastroenterology.
[2024-12-19 11:36] LABS: Blood Urea Nitrogen 20 mg/dl (7-17); Calcium 8.9 mg/dl (8.4-10.2); Carbon Dioxide 27 mmol/L (22-30); Chloride 104 mmol/L (98-107); Estimated Creatinine Clearance 36 ml/min; Glucose 151 mg/dl (70-99); Magnesium 1.6 mg/dl (1.6-2.3); Potassium 4.2 mmol/L (3.5-5.1); Sodium 137 mmol/L (135-145); eGFR > 60.00
[2024-12-19 11:46] LABS: Hematocrit 29.8 % (37.0-47.0); Hemoglobin 9.3 g/dL (12.0-16.0); Mean Corp Hgb Conc. 31.2 g/dL (33.0-37.0); Mean Corpuscular Hgb 28.5 pg (27.0-31.0); Mean Corpuscular Volume 91.4 fL (81.0-99.0); Mean Platelet Volume 9.3 fL (7.4-10.4); Platelet Count 269 10^3/uL (130-400); Red Blood Cell Count 3.26 10^6/uL (4.20-5.40); Red Cell Dist. Width 17.9 % (11.5-14.5); White Blood Cell Count 10.8 10^3/uL (4.8-10.8)
--- NOTE | 2024-12-19 14:30 | W.PN.CRS1 ---
Today's Communication / Plan
-
questran
GI workup
Assessment/Plan
-
Assessment: 84-year-old female status post robotic ileostomy takedown and small bowel resection on 11/12/2024 and a subtotal colectomy due to ischemic colitis prior to this, presents to the ER due to an outpatient finding of a hemoglobin of 6.7
Hgb 9.3 (7.2)
Vitals stable
-No plans for surgical intervention
-Hemoglobin improved s/p transfusion
-Tolerating a regular diet
-Lomotil/Imodium/Metamucil
-Will add 2 scoops of Questran
-GI workup
Subjective Data
Subjective Data
Date of Service: December 19, 2024
Patient states she feels well. She currently has no complaints. She had a loose brown stool this morning.
Objective Data
-
Vital Signs
Temp Pulse Resp BP Pulse Ox
98.1 F 68 18 102/63 97
12/19/24 07:45 12/19/24 07:45 12/19/24 07:45 12/19/24 07:45 12/19/24 07:45
Intake & Output
12/18/24 12/19/24 12/20/24
06:59 06:59 06:59
Intake Total 730 / 730 720 / 720
Balance 730 / 730 720 / 720
Intake:
Oral fluids 480 / 480 720 / 720
Blood Product Amount Infused ( 250 / 250
mL)
Packed Rbc Leukoreduced Unit 250 / 250
[id number]
Other:
Number of approximated MODERATE 1
amounts of urine
How many times incontinent 2 1
MODERATE amount urine
How many times incontinent 1
SATURATED amount urine
Number of unmeasured liquid
stools
Rectum 3
Lab Results
12/19/24 11:10
12/19/24 11:10
Physical Exam
-
General: No Acute Distress and AOx3
Abdomen: Soft, Non Distended and Non Tender
Skin: Warm and Dry
[2024-12-19] MEDS: FERRLECIT 110 MG IV (14:35)
[2024-12-19] MEDS: TYLENOL 1000 MG PO (14:37)
--- NOTE | 2024-12-19 15:39 | CM ---
control system manager reviewed patient's chart and patient was admitted under OBS, OBS letter discussed, patient lives with her spouse in a one story home patient is independent with adl's and uses a walker or cane with ambulation, patient has [facility] services
in home, and caregiver.
PCP: Dr. David Valdez
Pharmacy: [facility].
Plan; Home with [facility].
[2024-12-19 15:42] VITALS: BP 108/51
--- NOTE | 2024-12-19 16:59 | CON.ID ---
Consultation
-
Date/Time Consultation Requested: 12/19/2024 1510
Date/Time Consultation Performed: 12/19/2024 1700
Requesting Provider: Dr. Wagner
Performing Provider: Dr. Nuñez
Reason for Consultation: Positive for norovirus
Chief Complaint / Past History
History of Present Illness
Patient with a history of emergency total colectomy for acute ischemia in November 2023 who underwent Robotic takedown of ileostomy with ileo-rectosigmoid
anastomosis and small-bowel resection on 11/12/2024. Following her surgery, she continued to have 4-5 bowel movements a day, described as loose. She was discharged on 11/20/2024 following outpatient labs revealing significant anemia (Hb ~ 6).
Workup in the ER revealed a hemoglobin of 7.2, and the patient received a transfusion. Further workup has revealed that the patient is C. diff ag(+)/tox(-), and norovirus testing is positive, but the patient is without symptomatology. Infectious
Diseases is asked to comment upon further need for antibiotics.
In further discussion with the patient and her daughter (via telephone) patient has had ongoing loose stool since her operation. They do note that stool consistency has been somewhat improving, although the patient reports that she often does not
have the control that she would like and she has had multiple episodes of incontinence. She reports no history of recent myalgias, fevers, nausea or vomiting. She admits, though, that her caregiver that was caring for her earlier in the week was
out midweek with 'food poisoning'. There has been no history of fever. She denies abdominal pain.
Past History
Additional Past Medical History:
A-fib
Hx CVA
HTN
Hypothyroidism
Mesenteric ischemia
Trigeminal neuralgia
Lumbar DJD
Diverticulitis
Additional Past Surgical History:
Appendectomy
Bowel resection
Cardiac ablation
Right SIMONE
Allergy History:
amlodipine Allergy (Verified 11/12/24 06:19)
Nausea
codeine Allergy (Verified 11/12/24 06:19)
Nausea / Vomiting
doxycycline Allergy (Verified 11/12/24 06:19)
Hives
hydrocodone [From Vicodin] Allergy (Verified 11/12/24 06:19)
Vomiting
metoprolol [From Lopressor] Allergy (Verified 11/12/24 06:19)
Dizzy
sulfamethoxazole [From Bactrim] Allergy (Verified 11/12/24 06:19)
Rash
trimethoprim [From Bactrim] Allergy (Verified 11/12/24 06:19)
Rash
Medications Reviewed: Yes
Current Antibiotics:
None
Social History
Tobacco: Former Smoker
Alcohol: Occasional
Drug: None
Personal:
Living: With Family
Employment: Retired
Family History
Family History: Not Pertinent
Review of Systems
Vital Signs
Temp Pulse Resp BP Pulse Ox
97.8 F 63 18 108/51 99
12/19/24 15:42 12/19/24 15:42 12/19/24 15:42 12/19/24 15:42 12/19/24 15:42
Physical Exam
Physical Exam
Constitutional: No Acute Distress, Comfortable, Chronically Ill and Non-toxic
Eyes: No Conjunctival Hemorrhage and Sclera Anicteric
Cardiovascular: S1/S2; Negative S3/S4
Pulmonary: Non Labored
Gastrointestinal: Soft, Non Tender, Non Distended, Normal Bowel Sounds, No Rebound and No Guarding
Extremities: Negative Edema, Clubbing or Cyanosis
Neurological: Awake and Alert
Psychological: Calm
Lab / Diagnostic Study Results
12/19/24 11:10
12/19/24 11:10
Abs Immat Gran (auto) 0.1 10^3/uL (0-0.05) H 12/18/24 09:34
Absolute Neuts (auto) 8.7 10^3/uL (1.4-6.5) H 12/18/24 09:34
Absolute Lymphs (auto) 1.3 10^3/uL (1.2-3.4) 12/18/24 09:34
Absolute Monos (auto) 1.2 10^3/uL (0.1-0.6) H 12/18/24 09:34
Absolute Basos (auto) 0.1 10^3/uL (0-0.2) 12/18/24 09:34
Immature Gran % 0.8 % (0-0.5) H 12/18/24 09:34
Neutrophils % 73.9 % (42.2-75.2) 12/18/24 09:34
Lymphocytes % 11.4 % (20.5-51.1) L 12/18/24 09:34
Monocytes % 10.5 % (1.7-9.3) H 12/18/24 09:34
Eosinophils % 2.7 % (0-6) 12/18/24 09:34
Basophils % 0.7 % (0-2) 12/18/24 09:34
Microbiology Results
Micro:
12/19/24 10:27 C. difficile GDH Antigen & Toxins - Final
Feces/Stool C. difficile antigen positive, toxin negative.
Clostridium difficile present, but toxin not detected.
Patient may be a carrier, colonized with nontoxinogenic
strain or the level of toxin in sample is below detection
limits. This information should be used in conjunction with
the patient's clinical history.
- Final
Positive for Norovirus GII
12/19/24 10:27 Salmonella/Shigella Culture - Pending
Feces/Stool Campylobacter Culture - Pending
Shiga Toxin Test - Pending
Assessment / Plan
Anemia
C. difficile testing Ag(+) / Tox (-)
Positive Norovirus testing without symptomatology
Loose stool
History of recent ilio rectosigmoid anastomosis (reversal of ileostomy)
Recommendations:
At present, patient without significant symptomatology of acute norovirus infection. It is possible that she may have some viremia without symptomatology, thus would continue with isolation to prevent potential spread a recent contact reportedly
with GI illness, thus may be the source. Doubt any long-term or chronic infection, though. Discussed with daughter, and advised good hygiene and handwashing once patient is home.
C. difficile testing noted. Without positive toxin, would hold on treatment at present.
[2024-12-19] MEDS: DESENEX/MITRAZOL/ZEASORB 1 APPLIC TOPICAL (20:16)
[2024-12-19] MEDS: IMODIUM 2 MG PO (20:16)
[2024-12-19 23:39] VITALS: BP 129/67
[2024-12-20 05:59] LABS: Hematocrit 25.2 % (37.0-47.0); Hemoglobin 8.1 g/dL (12.0-16.0); Mean Corp Hgb Conc. 32.1 g/dL (33.0-37.0); Mean Corpuscular Hgb 28.9 pg (27.0-31.0); Mean Platelet Volume 10.1 fL (7.4-10.4); Platelet Count 229 10^3/uL (130-400); Red Cell Dist. Width 17.5 % (11.5-14.5); White Blood Cell Count 7.4 10^3/uL (4.8-10.8)
[2024-12-20] MEDS: SYNTHROID 100 MCG PO (05:59)
[2024-12-20 06:28] LABS: ALT (SGPT) 24 U/L (0-35); AST (SGOT) 32 U/L (14-36); Albumin 2.4 g/dl (3.5-5.0); Alkaline Phosphatase 394 U/L (38-126); Blood Urea Nitrogen 20 mg/dl (7-17); Calcium 8.5 mg/dl (8.4-10.2); Carbon Dioxide 26 mmol/L (22-30); Chloride 104 mmol/L (98-107); Estimated Creatinine Clearance 36 ml/min; Glucose 73 mg/dl (70-99); Magnesium 1.7 mg/dl (1.6-2.3); Phosphorus 2.6 mg/dl (2.5-4.5); Potassium 3.9 mmol/L (3.5-5.1); Sodium 134 mmol/L (135-145); Total Bilirubin 0.6 mg/dl (0.2-1.3); Total Protein 4.7 g/dl (6.3-8.2); eGFR > 60.00
--- NOTE | 2024-12-20 07:07 | W.PN.HOSP.TC ---
Addendum entered and electronically signed by Rachel Wagner MD 12/20/24 13:31:
correction. not on lasix at home. discontinued
Original Note:
Today's Communication/Plan
-
discharge
Assessment / Plan
Assessment / Plan
Physical Exam
General: Pallor improved, no cyanosis, or jaundice. Frail appearance
HEENT: Throat clear. PERRLA EOMI Normocephalic atraumatic
NECK: Supple. No JVD Carotid Bruits
RESPIRATORY: Lungs clear to auscultation. No crackles wheezes stridor
CVS: S1, S2 normal. RRR. No murmur, rub or gallop.
ABDOMEN: Soft, non-tender. No distension. BS+/normal.
EXTREMITIES: No peripheral cyanosis. Lower ext swelling +1 edema LLE blister wound bruising noted. scattered ecchymosis upper lower ext noted.
EMERGENCY SERVICES DISPATCHER: AOx3 conversant coherent
Psych: calm
IMPRESSION:
84F afib Eliquis CVA HTN Hypothyroidism PMR on chronic prednisone hx Bowel Ischemia Colectomy recent ileostomy reversal here for incidental finding Anemia Hgb 6 on routine outpatient lab work day prior to presentation. Repeat Lab work on ED eval
noted Hgb 7.2 (appears baseline for patient persistent anemia in 7's range since her ileostomy reversal in Nov 2024). VSS no obvious signs of bleeding. Hemeoccult was noted positive on rectal exam and patient was transfused 1PRBC as per ED. Iron
studies consistent with iron deficiency anemia. Patient placed on observation for now further evaluation/treatment anemia. Patient also notes increased leg swelling for the last week. Stable respiratory status on room. Denies fever chills
coughing sneezing constipation. Reports chronic constipation on Lomotil and Imodium for the past few weeks since ileostomy reversal.
PLAN:
#Anemia
#On Eliquis for afib
#Recent Ileostomy reversal
#Chronic prednisone for PMR
#Iron panel appreciated Iron Def Anemia
med/surg
1PRBC given in ED, post-transfusion CBC notes appropriate response
Iron supplementation
CRS GI evals appreciated
Eliquis held in case need for intervention, ok to resume on discharge
Cont home Cardizem with holding parameters
cont lomotil and imdur as per GI
Questran added as per CRS
Wound care
outpatient Hematology eval recommended
#Norovirus pos Cdiff antigen pos toxin neg
patient relatively asymptomatic with regards to norovirus (no fever nausea abd pain- diarrhea since improved)
ID eval appreciated neg toxin, patient does not need treatment for Cdiff at this time
#Lower Ext swelling
#BNP elevated
#Lymphedema
stable resp status room air
ECHO appreciated EF 67% no significant change to prior ECOH 12/2023
resume home lasix
PT/OT appreciated Home Health
dvt ppx SCD
gi ppx PPI
DNR
Medically stable for discharge home with home services and outpatient follow up recommendations.
discussed with patient and patient's daughter Theresa
Total Time Preparing Discharge __40 minutes including examination of the patient, summary of the hospital stay, instructions for continuing care to all relevant caregivers; and preparation of discharge records, prescriptions, and referral
forms if necessary.
Anticipated Discharge: Today
Subjective/Interval History
-
Date of Service: December 20, 2024
No acute distress. Reports feeling well. Diarrhea resolved, soft/loose bowel movements. Denies new acute issues. Eager to go home.
Objective Data
-
Labs:
Laboratory Results
12/20/24
05:16
WBC 7.4
Hgb 8.1 L
Hct 25.2 L
Plt Count 229
Sodium 134 L
Potassium 3.9
Chloride 104
Carbon Dioxide 26
BUN 20 H
Creatinine 0.9
Glucose 73
Calcium 8.5
Total Bilirubin 0.6
AST 32
ALT 24
Alkaline Phosphatase 394 H
Vital Signs:
Vital Signs
Temp Pulse Resp BP Pulse Ox
98.1 F 73 16 129/67 100
12/19/24 23:39 12/19/24 23:39 12/19/24 23:39 12/19/24 23:39 12/19/24 23:57
I&O
12/19/24 12/20/24 12/21/24
06:59 06:59 06:59
Intake Total 730 / 730 1440 / 1440
Balance 730 / 730 1440 / 1440
[2024-12-20 07:25] VITALS: BP 118/48
[2024-12-20 08:12] LABS: Glucose - Point of Care 100 mg/dl (70-99)
[2024-12-20 09:11] LABS: Hematocrit 26.1 % (37.0-47.0); Hemoglobin 8.4 g/dL (12.0-16.0)
[2024-12-20] MEDS: PROTONIX IV 40 MG IV (09:15)
[2024-12-20] MEDS: QUESTRAN 4 GRAM PO (09:15)
[2024-12-20] MEDS: LOMOTIL 1 TABLET PO (09:15)
[2024-12-20] MEDS: NSS (PRESERVATIVE FREE) 10 ML IV (09:15)
[2024-12-20] MEDS: NEURONTIN 600 MG PO (09:15)
[2024-12-20] MEDS: ProAmatine 2.5 MG PO ×2 (09:16→12:56)
[2024-12-20] MEDS: LASIX 20 MG PO (09:16)
[2024-12-20] MEDS: VITAMIN C 500 MG PO (09:16)
[2024-12-20] MEDS: VITAMIN D3 (cholecalciferol) 50 MCG PO (09:16)
[2024-12-20] MEDS: CARDIZEM CD 120 MG PO (09:18)
[2024-12-20] MEDS: METAMUCIL, KONSYL 1 PACKET PO (09:18)
[2024-12-20] MEDS: DELTASONE 3 MG PO (09:18)
[2024-12-20] MEDS: IMODIUM 2 MG PO (09:18)
[2024-12-20] MEDS: HYDROPHOR 1 APPLIC TOPICAL (09:19)
[2024-12-20] MEDS: ANTIFUNGAL CLEAR 1 APPLIC TOPICAL (09:20)
--- NOTE | 2024-12-20 12:29 | W.PN.GI.CBS2 ---
Today's Communication / Plan
-
-Diarrhea likely related to subtotal colectomy subtotal colectomy with ileocolonic anastomosis
Stool studies positive for norovirus and C. difficile antigen positive but toxin negative. Stool cultures pending. Noted ID evaluation, no need to treat for C. difficile. Less concern for norovirus.
Tolerating regular diet
s/p Eliquis 12/18 last dose
Pt currently on Lomotil TID and Metamucil daily-- Imodium 2mg BID and cholestyramine twice a day, currently having soft stool without any diarrhea.-
Monitor bowel movements and if constipated, we can cut back on the cholestyramine or Lomotil and titrate the dose based on her bowel pattern.
On oral iron, I would continue that.
Will follow
Assessment / Plan
-
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
PMR on chronic Prednisone, presents today for drop in hbg. In review of lab pt has had chronic anemia. Pt was noted with hbg 6-8 range last year after surgery. Last summer and fall she was noted 9- 11 range. Pre-op was 10 then post -op 7 range
since surgery and dropped to 6.8. She was noted in heme + stool in ER. Her other complaint during evaluation is stool urgency and incontinence since reversal. Last colonoscopy 11/2023 during ischemia with noted hemorrhoids, stool in colon and
concern for necrosis leading to colectomy, She had sigmoid 08/2024 noted normal. No hx EGD in past.
-chronic anemia with iron deficiency heme + in ER
-hx bowel ischemia with colectomy and SB resection with recent ileostomy reversal
-stool frequency, incontinence since surgery
other med problems:
-afib on Eliquis
-SSS
-CVA
-hyperlipidemia-
-hypothryoidism
-PMR on chronic steroids
PLAN:
-Diarrhea likely related to subtotal colectomy subtotal colectomy with ileocolonic anastomosis
Stool studies positive for norovirus and C. difficile antigen positive but toxin negative. Stool cultures pending. Noted ID evaluation, no need to treat for C. difficile. Less concern for norovirus.
Tolerating regular diet
s/p Eliquis 12/18 last dose
Pt currently on Lomotil TID and Metamucil daily-- Imodium 2mg BID and cholestyramine twice a day, currently having soft stool without any diarrhea.-
Monitor bowel movements and if constipated, we can cut back on the cholestyramine or Lomotil and titrate the dose based on her bowel pattern.
On oral iron, I would continue that.
Will follow
Subjective
Subjective
Date of Service: December 20, 2024
Patient reports having 1 small soft stool, no blood or black stool. No abdominal pain, nausea or vomiting, tolerating diet.
Objective
Data Reviewed
Laboratory Data:
Laboratory Results
12/20/24 08:56
12/20/24 05:16
Laboratory Results
Phosphorus 2.6 mg/dl (2.5-4.5) 12/20/24 05:16
Magnesium 1.7 mg/dl (1.6-2.3) 12/20/24 05:16
Total Bilirubin 0.6 mg/dl (0.2-1.3) 12/20/24 05:16
AST 32 U/L (14-36) 12/20/24 05:16
ALT 24 U/L (0-35) 12/20/24 05:16
Alkaline Phosphatase 394 U/L (38-126) H 12/20/24 05:16
Vital Signs and I&O:
Vital Signs
Temp Pulse Resp BP Pulse Ox
98.1 F 70 16 118/48 95
12/20/24 07:25 12/20/24 07:25 12/20/24 07:25 12/20/24 07:25 12/20/24 07:25
I&O
12/19/24 12/20/24 12/21/24
06:59 06:59 06:59
Intake Total 730 / 730 1440 / 1440
Output Total
Balance 730 / 730 1440 / 1440 -
Physical Exam
Physical Exam
GI: Soft, Non Distended and Non Tender
[2024-12-20] MEDS: FERRLECIT 110 MG IV (12:55)
--- NOTE | 2024-12-20 13:43 | W.DCSUMMARY ---
Discharge Summary
Discharge Data
Date of Admission: 12/19/24
Date of Discharge: 12/20/24
-
Pending Results: No
Discharge Plan
-
Patient Disposition: Home with Home Care
Discharge Diagnosis/Procedures: Iron Deficiency Anemia
Paroxysmal Atrial Fibrillation
History bowel ischemia Colectomy recent Ileostomy reversal
Chronic Diarrhea
Incidental positive Norovirus
Lower extremity lymphedema
Hypothyroidism
PMR chronic steroids
Condition: Fair
Diet: Regular
Activity: As tolerated and With Walker
Driving Restrictions: No driving
Bathing Restrictions: None
Blood Work: Please repeat CBC and BMP with primary care provider in 1 week of discharge.
Other Services: VN, PT and OT
Activity Restrictions/Additional Instructions:
Wound Care Instructions Buttocks and Groin- Clean skin gently with soap and water and apply antifungal ointment to buttocks and groin BID and PRN with incontinence care.
Left leg blister- Cover with alginate, dry dressing and wrap with gregorio or Kerlix. Change Q 48 hours and PRN
Right Lower Leg Abrasion- Clean with normal saline or soap and water and cover with Medihoney, adaptic and 4x4. Secure with gregorio or kerlix. Change Q 48 hours and PRN if loose or soiled.
Right upper thigh skin tear- Clean with normal saline or soap and water. Apply adaptic and cover with 4x4 and secure with gregorio or kerlix. Change Q 48 hours and PRN if loose or for drainage
Neck- Apply Mineral oil to scabbed area on anterior and posterior neck
Frequent incontinence care to keep skin dry
Change pull-ups frequently
Apply lotion to skin daily
Follow up with primary care provider in 1 week of discharge and Hematology in 2-4 weeks of discharge. Follow up with Colorectal surgeon and GI in 3-4 weeks of discharge.
Iron supplementation has been prescribed for iron deficiency anemia.
For chronic diarrhea, Questran has been prescribed twice a day. Reduce dose to once a day if constipation develops. Hold if Constipation persists despite reduction and contact colorectal surgeon or primary care provider for further
recommendations.
Imdur has been reduced to twice a day. If constipation develops, reduce to once a day. Hold if Constipation persists despite reduction and contact colorectal surgeon or primary care provider for further recommendations.
Regarding Lomotil, continue three times a day dosing as prior hospitalization. Reduce to twice a day dosing if constipation develops. Hold if Constipation persists despite reduction and contact colorectal surgeon or primary care provider for
further recommendations.
Bicarb levels have been consistently normal during your hospitalization, without need for supplementation. It is recommended that you reduce your home bicarb supplementation to 650 mg twice a day and follow up with primary care provider, or other
healthcare provider involved in your care, to determine when safe to discontinue.
Please take medications as prescribed/recommended and follow up with primary care provider and/or other healthcare provider involved in your care for refills and/or further adjustment to your medication regimen as necessary.
Referrals:
Judd Gerardo DO [Active] - in two to four weeks
Austin López MD [Active] - in three to four weeks
Delilah Julian MD [Active] - in three to four weeks (call to arrange 3-4 week GI follow up for anemia and loose stools )
David Valdez MD [Family Provider] - in one week
Prescriptions:
New
Critic-Aid Clear AF(miconazol) 2 % Ointment
1 applic topical BID Qty: 1200 0RF
miconazole nitrate [Miconazorb AF] 2 % Powder
1 applic topical PRN PRN (Reason: soilage/drainage) Qty: 85 0RF
ferrous sulfate [FeroSul] 325 mg (65 mg iron) Tablet
325 mg PO DAILY Qty: 30 0RF
white petrolatum [Hydrophor] 42 % Ointment
1 applic topical DAILY Qty: 100 0RF
cholestyramine (with sugar) 4 gram Powder In Packet
1 ea PO BID@1000,2200 Qty: 60 0RF
Rx Instructions:
reduce to daily if constipation develops.
hold if constipation persists
Continued
acetaminophen 500 mg Tablet
1,000 mg PO TIDPRN PRN (Reason: mild pain)
cholecalciferol (vitamin D3) [Vitamin D3] 50 mcg (2,000 unit) Capsule
50 mcg PO DAILY
apixaban 2.5 mg Tablet
2.5 mg PO BID
midodrine 2.5 mg tablet
2.5 mg PO TID
levothyroxine [Synthroid] 100 mcg Tablet
100 mcg PO DAILY
prednisone 1 mg Tablet
3 mg PO DAILY
gabapentin 300 mg Capsule
600 mg PO TID
diltiazem HCl 120 mg Capsule,Extended Release 24hr
120 mg PO DAILY
psyllium Packet
1 packet PO DAILY
lorazepam 0.5 mg Tablet
0.25 - 0.5 mg PO DAILYPRN PRN (Reason: anixety)
diphenoxylate-atropine [Lomotil] 2.5-0.025 mg Tablet
1 tab PO TID Qty: 0 0RF
Rx Instructions:
Reduce to twice a day if constipation develops.
Hold if constipation persists.
pantoprazole 40 mg Tablet,Delayed Release (Dr/Ec)
40 mg PO DAILY 30 Days Qty: 30 0RF
ascorbic acid (vitamin C) [Vitamin C] 500 mg Tablet
500 mg PO DAILY 30 Days Qty: 30 0RF
Changed
loperamide 2 mg Tablet
2 mg PO BID Qty: 0 0RF
sodium bicarbonate 650 mg Tablet
650 mg PO BID Qty: 0 0RF
Discharge Orders:
Discharge Patient (As Directed); Ordered 12/20/24
Ordered By: Rachel Wagner
Discharge Date and Time
Print Language: BELARUSIAN
--- NOTE | 2024-12-20 13:53 | CM ---
Plan: Discharge to home with resumption of home health with [facility]; will transport home
notified patient's daughter/primary contact via phone; Home Health notified via [facility] of discharge
[2024-12-20 15:10] VITALS: BP 131/74
== END 2024-12-20 15:18 | disposition home health service (06) | DRG 812 ==
LOC: 4 WEST ACU 16:14
PROVIDERS: ADMITTING PHYSICIAN Internal Medicine; CONSULT PHYSICIAN Internal Medicine Gastroenterology; CONSULT PHYSICIAN Internal Medicine Infectious Disease; CONSULT PHYSICIAN Surgery; EMERGENCY PHYSICIAN Emergency Medicine; FAMILY PHYSICIAN Family Medicine
PROC: 30233N1 Transfusion of Nonautologous Red Blood Cells into Peripheral Vein, Percutaneous Approach (ICD-10-PCS; 2024-12-19)
DX: D50.9 Iron deficiency anemia, unspecified (principal); A08.11 Acute gastroenteropathy due to Norwalk agent; K52.9 Noninfective gastroenteritis and colitis, unspecified; E03.9 Hypothyroidism, unspecified; I10 Essential (primary) hypertension; I48.0 Paroxysmal atrial fibrillation; I49.5 Sick sinus syndrome; Z66 Do not resuscitate; E78.00 Pure hypercholesterolemia, unspecified; Z79.01 Long term (current) use of anticoagulants; Z79.899 Other long term (current) drug therapy; Z86.73 Personal history of transient ischemic attack (TIA), and cerebral infarction without residual deficits; Z79.52 Long term (current) use of systemic steroids; Z87.891 Personal history of nicotine dependence; Z87.19 Personal history of other diseases of the digestive system
CPT/HCPCS: 36430; 80048; 80053; 82607; 82728; 82746; 82962; 83540; 83550; 83735; 83880; 84100; 85014; 85018; 85025; 85027; 86850; 86900; 86901; 86920; 87045; 87046; 87324; 87427; 87449; 87798; 93005; 93306; 97163; 97166; 99285; J2916; P9016

== ENCOUNTER → 2024-12-29 12:10 | Outpatient (REF) | payer MEDICARE, BC, SELFPAY ==
[2024-12-29 12:48] LABS: Hemoglobin 9.1 g/dL (12.0-16.0); Mean Corp Hgb Conc. 31.4 g/dL (33.0-37.0); Mean Corpuscular Hgb 29.8 pg (27.0-31.0); Mean Corpuscular Volume 95.1 fL (81.0-99.0); Mean Platelet Volume 10.6 fL (7.4-10.4); Platelet Count 412 10^3/uL (130-400); Red Blood Cell Count 3.05 10^6/uL (4.20-5.40); Red Cell Dist. Width 17.7 % (11.5-14.5)
[2024-12-29 13:07] LABS: Blood Urea Nitrogen 21 mg/dl (7-17); Carbon Dioxide 24 mmol/L (22-30); Chloride 105 mmol/L (98-107); Glucose 134 mg/dl (70-99); Potassium 4.4 mmol/L (3.5-5.1); Sodium 138 mmol/L (135-145); eGFR 55.21
== END ==
LOC: CLAB 12:10
PROVIDERS: ATTENDING PHYSICIAN Family Medicine
DX: D50.9 Iron deficiency anemia, unspecified (principal); N18.31 Chronic kidney disease, stage 3a; D63.1 Anemia in chronic kidney disease
CPT/HCPCS: 80048; 85027

== ENCOUNTER → 2025-01-08 11:51 | Outpatient (REF) | payer MEDICARE, BC, SELFPAY | LOC: REG 11:51 | PROVIDERS: ATTENDING PHYSICIAN Physician Assistant | DX: K52.9 Noninfective gastroenteritis and colitis, unspecified (principal) | CPT/HCPCS: 87324; 87449 ==

== ENCOUNTER → 2025-03-02 08:18 | Outpatient (REF) | payer MEDICARE, BC, SELFPAY ==
[2025-03-02 10:13] LABS: Erythrocyte Sed Rate 75 mm/hour (0-20)
[2025-03-02 11:17] LABS: ALT (SGPT) 39 U/L (0-35); AST (SGOT) 40 U/L (14-36); Albumin 4.2 g/dl (3.5-5.0); Alkaline Phosphatase 510 U/L (38-126); Blood Urea Nitrogen 20 mg/dl (7-17); Carbon Dioxide 25 mmol/L (22-30); Chloride 108 mmol/L (98-107); GGTP 444 U/L (12-43); Glucose 87 mg/dl (70-99); Potassium 4.5 mmol/L (3.5-5.1); Sodium 141 mmol/L (135-145); Total Bilirubin 1.2 mg/dl (0.2-1.3); Total Protein 6.9 g/dl (6.3-8.2); eGFR > 60.00
[2025-03-02 11:34] LABS: IgA 406 mg/dl (70-400)
[2025-03-02 11:47] LABS: TSH 0.11 uIU/ml (0.47-4.68)
[2025-03-04 15:49] LABS: tTG IgA Antibody 2.4 EU/ml (0-19); tTG IgG Antibody < 1 EU/ml (0-19)
[2025-03-04 21:28] LABS: Ceruloplasmin 33 mg/dL (16-45)
[2025-03-04 21:50] LABS: Alpha-1-Antitrypsin 188 mg/dL (90-200)
[2025-03-05 03:04] LABS: F-Actin Antibody IgG 19 Units (0-19); Mitochondrial M2 Ab, IgG 143.3 Units (0.0-24.9)
[2025-03-05 05:28] LABS: ANA, IgG Reflex to HEp-2 None Detected (None Detected)
== END ==
LOC: RAD 08:18
PROVIDERS: ATTENDING PHYSICIAN Physician Assistant; FAMILY PHYSICIAN Family Medicine
DX: R79.89 Other specified abnormal findings of blood chemistry (principal); E03.9 Hypothyroidism, unspecified; E78.2 Mixed hyperlipidemia; E87.1 Hypo-osmolality and hyponatremia; I49.5 Sick sinus syndrome; R74.8 Abnormal levels of other serum enzymes; N18.31 Chronic kidney disease, stage 3a; M35.3 Polymyalgia rheumatica
CPT/HCPCS: 36415; 76700; 80053; 82103; 82390; 82784; 82977; 83516; 83915; 84443; 85652; 86015; 86038; 86140; 86231; 86381

== ENCOUNTER → 2025-04-15 15:56 | Outpatient (REF) | payer MEDICARE, BC, SELFPAY | LOC: RAD 15:56 | PROVIDERS: ATTENDING PHYSICIAN Physician Assistant; FAMILY PHYSICIAN Family Medicine | DX: S99.922A Unspecified injury of left foot, initial encounter (principal) | CPT/HCPCS: 73630 ==

== ENCOUNTER → 2025-05-07 10:15 | Outpatient (REF) | payer MEDICARE, BC, SELFPAY | LOC: REG 10:15 | PROVIDERS: ATTENDING PHYSICIAN Internal Medicine Gastroenterology; FAMILY PHYSICIAN Family Medicine | DX: R19.7 Diarrhea, unspecified (principal) | CPT/HCPCS: 36415; 87324; 87449 ==

== ENCOUNTER → 2025-05-12 08:36 | Outpatient (REF) | payer MEDICARE, BC, SELFPAY | LOC: REG 08:36 | PROVIDERS: ATTENDING PHYSICIAN Family Medicine | DX: M54.9 Dorsalgia, unspecified (principal) | CPT/HCPCS: 72110 ==

== ENCOUNTER → 2025-08-06 07:47 | Outpatient (REF) | payer MEDICARE, BC, SELFPAY ==
[2025-08-06 09:34] LABS: Urine Character Slightly Cloudy (Clear)
[2025-08-06 10:29] LABS: Urine Red Blood Cell 0-2 /HPF (0-2); Urine White Cell >100 /HPF (0-5)
[2025-08-06 12:01] LABS: Albumin 4.3 g/dl (3.5-5.0); Blood Urea Nitrogen 22 mg/dl (7-17); Calcium 9.7 mg/dl (8.4-10.2); Carbon Dioxide 27 mmol/L (22-30); Chloride 97 mmol/L (98-107); Glucose 75 mg/dl (70-99); Potassium 4.8 mmol/L (3.5-5.1); Sodium 131 mmol/L (135-145); eGFR > 60.00
[2025-08-06 12:26] LABS: C-Reactive Protein < 5.00 mg/L (0.0-10.00)
== END ==
LOC: REG 07:47
PROVIDERS: ATTENDING PHYSICIAN Family Medicine; OTHER PHYSICIAN Internal Medicine
DX: J47.9 Bronchiectasis, uncomplicated (principal); Z86.73 Personal history of transient ischemic attack (TIA), and cerebral infarction without residual deficits; H53.40 Unspecified visual field defects; Z79.01 Long term (current) use of anticoagulants; N18.31 Chronic kidney disease, stage 3a; I10 Essential (primary) hypertension; E03.9 Hypothyroidism, unspecified; K74.3 Primary biliary cirrhosis; E87.1 Hypo-osmolality and hyponatremia; I48.0 Paroxysmal atrial fibrillation; D64.9 Anemia, unspecified; Z93.2 Ileostomy status; E87.5 Hyperkalemia
CPT/HCPCS: 36415; 80069; 81003; 81015; 82570; 83970; 84156; 85652; 86140

== ENCOUNTER → 2025-09-03 10:18 | Outpatient (REF) | payer MEDICARE, BC, SELFPAY | LOC: REG 10:18 | PROVIDERS: ATTENDING PHYSICIAN Internal Medicine Gastroenterology | DX: R19.7 Diarrhea, unspecified (principal); K74.3 Primary biliary cirrhosis | CPT/HCPCS: 36415; 74018; 82784 ==

== ENCOUNTER → 2025-09-04 09:42 | Outpatient (REF) | payer MEDICARE, BC, SELFPAY | LOC: REG 09:42 | PROVIDERS: ATTENDING PHYSICIAN Internal Medicine Gastroenterology; FAMILY PHYSICIAN Family Medicine | DX: R19.7 Diarrhea, unspecified (principal) | CPT/HCPCS: 82653; 82705; 87324; 87449; 89055 ==